=== PATIENT | female | born 1975 | race Caucasian/White ===

== ENCOUNTER 2018-08-26 07:23 | Inpatient (IN) | payer OTHER, SELFPAY ==
[2018-08-26] VITALS (33 sets, daily range): BP systolic 125–170; BP diastolic 73–111; PULSE 71–109; RESP 16–18; TEMP 36.2–37.2; O2SAT 96–100; BMI 20.1
--- NOTE | 2018-08-26 07:15 | EKG12_ITS ---
Test Reason : CP Blood Pressure : / mmHG Vent. Rate : 087 BPM Atrial Rate : 087 BPM P-R Int : 146 ms QRS Dur : 090 ms QT Int : 350 ms P-R-T Axes : 087 054 069 degrees QTc Int : 421 ms Normal sinus rhythm Right atrial enlargement Borderline ECG Confirmed by JABARI HOBSON, MARCO ([id number]), editor city ROSEMARIE CALLE ([id number]) on 08/30/2018 2:29:08 PM Referred By: Sage Tamez Confirmed By:MARCO BARBOZA MD
--- NOTE | 2018-08-26 07:30 | RAD_ITS ---
STUDY: X-RAY - ACUTE ABDOMINAL SERIES REASON FOR EXAM: Female, 42 years old. Chest pain and abdominal pain this morning. Right-sided tenderness. Bloating yesterday. TECHNIQUE: Single view of the chest. Supine, and upright view(s) of the abdomen were obtained. COMPARISON: None. FINDINGS: Mild pulmonary hyperinflation. The lungs are clear. Normal size heart. Normal mediastinum and waqar. Normal visualized pulmonary arteries. Normal visualized aortic arch and descending thoracic aorta. There is a non-specific bowel gas pattern. The soft tissue structures of the abdomen and pelvis are unremarkable. Threaded metallic screws at L5-S1. Midline S1 screw. Postsurgical absence of the L5 spinous process and lamina. No acute osseous abnormality. RAD/Acute Abdomen Inc Chest IMPRESSION: 1. Mild pulmonary hyperinflation. Deeper inspiratory effort versus mild COPD. 2. No acute cardiopulmonary pathology. 3. Normal abdominal radiographs. Electronically Signed: Abel Gillis MD at 8:46 EST , Service support ,
--- NOTE | 2018-08-26 07:31 | US_ITS ---
STUDY: ABDOMINAL ULTRASOUND - RIGHT UPPER QUADRANT REASON FOR VISIT: Female, 42 years old. Right upper quadrant pain. Cholelithiasis. TECHNIQUE: Ultrasound evaluation of the right upper quadrant was performed with real-time and static sexton-scale imaging. TECHNICAL QUALITY: Adequate. COMPARISON: None. FINDINGS: Liver: The liver measures 12.1 cm. There is normal echogenicity of the liver. The bile ducts are within normal limits. There is hepatic color flow. The direction of portal flow is hepatopetal. There is no demonstrated mass lesion. Gallbladder: Normal distended gallbladder. The gallbladder wall measures 3 mm. There is a negative sonographic Barahona's sign. There is no pericholecystic fluid. There are no gallstones. Common Bile Duct (C.B.D.): The common bile duct measures 4 mm. Pancreas: Normal size of the head, body and tail of the pancreas. There is normal echogenicity of the pancreas. There is no demonstrated pancreatic mass or cyst. The pancreatic duct is not dilated. Right Kidney: Normal size of the right kidney. The right kidney measures 12.0 x 4.6 x 4.5 cm. Normal renal cortex. The right cortex measures 1.4 cm. Small right extrarenal pelvis. There is no demonstrated renal mass or cyst. There is no right hydronephrosis. US/Gallbladder IMPRESSION: Normal right upper quadrant ultrasound examination. Electronically Signed: Abel Gillis MD at 8:50 EST , Service support ,
--- NOTE | 2018-08-26 07:39 | ED.DCSUM_ITS ---
- ER Visit Summary Date of Service: 08/26/18 Chief Complaint: Chest pain, back pain, nausea History of Present Illness: The patient is a 42 F presents to the emergency department with multiple complaints. Patient states she was in her normal state of health. She states that she woke about 3 in the morning. She had a stabbing pain in her left posterior shoulder. She states she just felt like she could not get comfortable. Over the next bit of time, the pain seemed to radiate into her upper abdomen. She was mildly nauseated. She states that she thought maybe it was just muscular, but despite moving, she cannot get comfortable. She denies shortness of breath. She has no history of coronary vascular disease. Her only prior surgical history is of a lumbar decompression and fusion. She states that she is never really had pain like this before. She has no history of pulmonary embolus. She denies any fevers. She denies any food intolerances. She states nothing is really helped the pain. It has been constant since about 3 this morning. Physical Examination: Vital signs reviewed General: Well-nourished, well-developed Head: Normocephalic, atraumatic Eyes: Pupils equal and reactive, extraocular muscles intact Neck, supple, no lymphadenopathy Heart: Regular rate and rhythm Respiratory: No distress, clear bilaterally Abdomen: Soft, tender in the midepigastric area without rebound or guarding, nondistended, no peritoneal signs Back: Nontender Extremities: Nontender, no edema, no cords Skin: Normal color no rash Neuro: Alert and oriented, no focal or lateralizing deficits Test Results: [] Emergency Department Course and Treatment: EKG was obtained on patient arrival. There is no acute ischemia. Axes and intervals are normal. Patient was given Tylenol and Zofran. She did have improvement of her pain. I started with plain films of the abdomen and chest. Her mediastinum was normal. There is no evidence of acute obstruction. I also obtained a right upper quadrant ultrasound. Her gallbladder shows no pericholecystic fluid, enlarged duct, or other dangerous process. With her persistent pain, I did obtain a CT of her abdomen and pelvis which was also normal. Her labs are unremarkable. The patient was still uncomfortable. I did discuss this with Dr. Tamez who evaluated the patient in the emergency department. HIDA scan was ordered. HIDA scan was completed and showed evidence of cholecystitis. Patient was covered with broad-spectrum antibiotics. She will be taken to surgery for cholecystectomy. Treatment Plan: [] Disposition: Admission Impression: Cholecystitis This note was generated with [email or web address] dictation software. It may contain incorrect words, spelling, and punctuation that were not noted in review of the chart prior to signing ED Disposition - Plan for ED Patient: Disposition: Acute Care Hospital [facility] Chief Complaint: Chest Pain
[2018-08-26 07:46] LABS: Mucous, Urine 0 SEEN /hpf (<or=2+); Red Blood Cells-Urine 0 SEEN /hpf (0-5)
[2018-08-26 07:49] LABS: Color, Urine Yellow (Yellow); Glucose, Dipstick Normal (Normal); Ketone-Dipstick 5 mg/dl (Negative); Leukocyte Esterase-Dipstick 25 /ul (Negative); Nitrite-Dipstick Negative (Negative); Occult Blood-Urine Negative /ul (Negative); Protein-Dipstick Negative (Negative); Specific Gravity, Urine 1.015 (1.002-1.030); Urine Bilirubin Dipstick Negative (Negative); Urine Clarity Cloudy (Clear); Urine Urobilinogen Normal (Normal)
[2018-08-26 07:51] LABS: Internal QC Validated? YES +Cl - CLEAR BKGD; Pregnancy, Urine Negative Negative
[2018-08-26] MEDS: 0.9% Normal Saline 1,000 ML 1000 ML IV (07:52)
[2018-08-26] MEDS: Ondansetron 4 MG/2 ML Vial IV ×2 (07:52→20:54)
[2018-08-26] MEDS: Ketorolac 30 MG/ML Syringe IV (07:52)
[2018-08-26 07:59] LABS: Bacteria 3+ /hpf (None Seen); Squamous Epithelial Cells - UA 0-5 SEEN /hpf (5-10); White Blood Cells 0-5 SEEN /hpf (0-5)
[2018-08-26 08:00] LABS: Absolute Lymphocyte Count 1.66 X10^3/ul (0.83-4.51); Absolute Neutrophil Count 4.2 X10^3/uL (2.0-7.7); Basophil# 0.04 X10^3/uL; Basophil% 0.6 % (0-1); Eosinophil# 0.05 X10^3/uL; Eosinophils% 0.8 % (0-5); Hemoglobin 13.8 g/dl (12.0-15.0); Lymphocyte # 1.66 X10^3/ul (4.0); Lymphocyte % 25.5 % (19-41); Mean Corp Hgb Conc 32.1 g/gl (32-36); Mean Corpuscular Volume 90.3 fL (81-99); Mean Platelet Vol. 10.2 fl (6.2-12.0); Monocyte# 0.55 X10^3/uL; Monocyte% 8.4 % (0-10); Neutrophil % 64.4 % (47-70); Platelet Count 199 K/mm3 (150-450); RBC Distribution Width CV 12.7 % (11.6-14.6); RBC Distribution Width SD 41.8 fl (35.1-43.9); Red Blood Count 4.76 M/mm3 (4.2-5.4); White Blood Count 6.5 K/mm3 (4.4-11.0)
[2018-08-26 08:01] LABS: POSITIVE COUNT NO; POSITIVE DIFFERENTIAL NO; POSITIVE MORPHOLOGY NO
[2018-08-26 08:15] LABS: AST(SGOT) 16 U/L (15-37); Alanine Aminotransfer ALT/SGPT 21 U/L (13-56); Albumin, Serum 3.8 g/dL (3.2-5.0); Alkaline Phosphatase 67 U/L (45-117); Anion Gap 7 (5-15); BUN 12 mg/dL (7-18); BUN/Creat Ratio 16.3 RATIO (10-20); Bilirubin, Direct 0.12 mg/dL (0.00-0.30); Calcium,Total 8.6 mg/dL (8.5-10.1); Chloride 108 mmol/L (98-107); Creatinine, Serum 0.73 mg/dL (0.55-1.02); EST Glomerular Filtration Rate 92 mL/min (>60); Est Glom Filt Rate - Afr Amer 111 mL/min (>60); Globulin 3.7 g/dL (2.2-4.2); Glucose 87 mg/dL (74-106); Lipase 144 U/L (73-393); Potassium 3.8 mmol/L (3.5-5.1); Protein, Total 7.5 g/dL (6.4-8.2); Sodium Level 140 mmol/L (136-145)
--- NOTE | 2018-08-26 08:34 | CT_ITS ---
STUDY: CT ABDOMEN AND PELVIS WITH CONTRAST REASON FOR EXAM: Female, 42 years old. Chest pain. Nausea. Uterine ablation. RADIATION DOSAGE (If Supplied By Facility): CTDIvol = ( 10.23 ) mGy, DLP = ( 338.98 ) mGycm TECHNIQUE: Transaxial images were obtained from the dome of the diaphragm to the symphysis pubis without oral contrast. 100CC ml of Isovue 300 contrast was administered. Sagittal and coronal images were reconstructed. Individualized dose optimization techniques were used for this CT. COMPARISON: None. FINDINGS: Calcified granuloma in the left central lung bases. The lung bases are otherwise normal. The visualized portions of the heart are within normal limits. Tiny nonenhancing hypodense cyst in the right hepatic lobe. The liver is otherwise normal. Normal gallbladder and extrahepatic biliary system. Normal spleen. Normal pancreas. Normal bilateral adrenal glands. Normal right kidney. Normal left kidney. Normal visualized stomach. Normal small intestine. Normal colon. The appendix is visualized and appears normal. Normal abdominal aorta. Normal inferior vena cava. Normal retroperitoneum. Normal urinary bladder. 1.6 cm rim-enhancing cyst in the right ovary. Heterogeneous hypodensities in the uterine fundus are suggestive of uterine fibroids. Normal abdominal wall. Disc implant inside the L5-S1 disc space. Midline metallic screw penetrating the S1 body. Threaded metallic screw traversing the right L5-S1 facet joint and the tip terminates in the right S1 body. Long threaded metallic screw entering the L5 spinous process and directed caudally to penetrate the left L5-S1 facet joint. No acute osseous abnormality. CT/Abdomen/Pelvis W IV Cont ONLY IMPRESSION: 1. Calcified granuloma in the left central lung base. 2. Tiny nonenhancing hypodense cyst in the right hepatic lobe. 3. 1.6 cm rim-enhancing cyst in the right ovary. 4. Heterogeneous hypodensities in the uterine fundus are suggestive of uterine fibroids. 5. Metallic disc implant inside the L5-S1 disc space and midline metallic screw penetrating the S1 body. 6. Threaded metallic screw traversing the right L5-S1 facet joint and the tip is inside the right S1 body. 7. Long threaded metallic screw entering caudally and penetrating the L5 spinous process and extending caudally to traverse the left L5-S1 facet joint. 8. No CT evidence of mass in the abdomen and pelvis. 9. No CT evidence of stones in the kidneys, ureters and bladder. Electronically Signed: Abel Gillis MD at 9:24 EST , Service support ,
[2018-08-26] MEDS: Mag Hydrox/Al Hydrox/Simeth 30 ML UDC PO (09:39)
--- NOTE | 2018-08-26 09:59 | NM_ITS ---
CLINICAL: 42-year-old female with reported history of abdominal pain. RADIONUCLIDE HEPATOBILIARY SCINTIGRAPHY COMPARISON: CT of the abdomen-pelvis and abdominal ultrasound reports 08/26/2018 FINDINGS: Following the intravenous administration of 5.3 mCi of 99m Tc Mebrofenin, hepatobiliary images reveal: 1. Relatively prompt and homogeneous radiopharmaceutical concentration is noted by a normal sized liver. No parenchymal defects are identified. 2. Gallbladder activity is not identified during 120 minutes of sequential imaging. 3. Small intestinal tract is observed at 30 minutes post radiopharmaceutical administration. 4. Washout of the radiopharmaceutical by the hepatic parenchyma appears qualitatively normal. NM/Hepatobilliary Img w/Pharm Int IMPRESSION: 1. ABNORMAL 99m Tc Mebrofenin hepatobiliary imaging examination. A. Nonvisualization of the gallbladder at 120 minutes post radiopharmaceutical administration is consistent with a high probability of cholecystitis (acute or chronic) in patients with intermediate to high pretest probabilities of hepatobiliary disease and who have fasted for more than 4 and less than 24 hours. (Sean et al, Nucl Med [employer] pg. 35, 1981). Electronically Signed: Adis Treadwell DO at 12:41 EST Tel , Service support ,
[2018-08-26] MEDS: HYDROmorphone 0.5 MG/0.5 ML SYRINGE IV (12:49)
[2018-08-26] MEDS: Ketorolac 15 MG/ML Vial IV (12:49)
--- NOTE | 2018-08-26 13:01 | PCM.HP.STD ---
Problem List (1) Acute cholecystitis Status: Acute History of Present Illness Date of Admission: 08/26/18 The patient is a 42 F presents to the emergency department with multiple complaints. Patient states she was in her normal state of health. She states that she woke about 3 in the morning. She had a stabbing pain in her left posterior shoulder. She states she just felt like she could not get comfortable. Over the next bit of time, the pain seemed to radiate into her upper abdomen. She was mildly nauseated. She states that she thought maybe it was just muscular, but despite moving, she cannot get comfortable. She denies shortness of breath. She has no history of coronary vascular disease. Her only prior surgical history is of a lumbar decompression and fusion. She states that she is never really had pain like this before. She has no history of pulmonary embolus. She denies any fevers. She denies any food intolerances. She states nothing is really helped the pain. It has been constant since about 3 this morning. While in the emergency department she had a gallbladder ultrasound as well as a CAT scan which did not reveal any obvious pathology. She subsequently underwent a HIDA scan with ejection fraction which showed nonvisualization of the gallbladder. This test also caused an extreme amount of discomfort for her. Past Medical History Allergies betamethasone [From Celestone] Allergy (Verified 08/26/18 07:30) Unknown betamethasone sodium phosphate [From Celestone] Allergy (Verified 08/26/18 07:30) Unknown codeine Allergy (Verified 08/26/18 07:30) Other Sulfa (Sulfonamide Antibiotics) Allergy (Verified 08/26/18 07:30) Other Home Medications: Ambulatory Orders Medication Instructions Recorded Hydrocodone/Acetaminophen [Vicodin 2 tablet PO QHS 10/02/14 5-300 mg Tablet] Amitriptyline HCl [Elavil] 10 mg PO QHS 08/26/18 Smoking Status: Never smoker - *Family History Paternal History Items: - - I removed her father's gallbladder Review of Systems Constitutional: Reports: Anorexia. Denies: Chills, Fever Cardiovascular: Reports: Chest Pain. Denies: Chest Pressure, Palpitations Respiratory: Denies: Cough, Hemoptysis, Shortness of breath at rest, Shortness of breath upon exertion, Wheezing Gastrointestinal: Reports: Abdominal Pain, Nausea. Denies: Diarrhea, Vomiting Genitourinary: Denies: Dysuria, Frequency, Hematuria, Urgency Musculoskeletal: Reports: Back Pain Skin: Denies: Lesions, Rash, Wounds VTE Information - Inpt Only VTE Present on Admission: No VTE Mechan Device Prophylaxis: SCD's VTE Pharm Prophylaxis ordered?: No Reason prophylaxis not ordered:: Treatment Not Indicated Patient Problems: Active and Suspected Problems Acute cholecystitis (Acute) - Physical Exam General: Alert, Oriented x3 Neck: Supple, No JVD Lungs: Clear to auscultation Cardiovascular: Regular rate, Regular Rhythm, No murmurs Abdomen: Bowel Sounds Present, Soft, Tender - This is mostly in the epigastric and right upper quadrant abdominal area to palpation. Extremities: No clubbing, No cyanosis, No edema, - - No signs of any rash on her trunk or torso. Skin: No rashes, No breakdown Vital Signs Temp Pulse Resp BP Pulse Ox 97.9 F 102 H 16 139/74 H 97 08/26/18 07:23 08/26/18 12:57 08/26/18 12:57 08/26/18 12:57 08/26/18 12:57 Oxygen Delivery Method Room Air Weight: 124 lb 12.506 oz Body Mass Index (BMI) 20.1 Laboratory Tests Past 24 Hrs 08/26/18 08/26/18 08/26/18 07:40 07:40 07:47 WBC 6.5 RBC 4.76 Hgb 13.8 Hct 43.0 MCV 90.3 MCH 29.0 MCHC 32.1 RDW 12.7 RDW Differential 41.8 Plt Count 199 MPV 10.2 Immature Gran % (Auto) 0.300 Neut % (Auto) 64.4 Lymph % (Auto) 25.5 [place] % (Auto) 8.4 Eos % (Auto) 0.8 Baso % (Auto) 0.6 Absolute Neuts (auto) 4.2 Absolute Lymphs (auto) 1.66 Total Counted Not Reportable Sodium Potassium Chloride Carbon Dioxide Anion Gap BUN Creatinine Estim Creat Clear Calc Est GFR (MDRD) Af Amer Est GFR (MDRD) Non-Af BUN/Creatinine Ratio Glucose Calcium Total Bilirubin Direct Bilirubin AST ALT Alkaline Phosphatase Troponin I Total Protein Albumin Globulin Lipase Urine Color Yellow Urine Clarity Cloudy Urine pH 7.0 Ur Specific [place] 1.015 Urine Protein Negative Urine Glucose (UA) Normal Urine Ketones 5 H Urine Occult Blood Negative Urine Nitrite Negative Urine Bilirubin Negative Urine Urobilinogen Normal Ur Leukocyte Esterase 25 H Urine RBC 0 SEEN Urine WBC 0-5 SEEN Ur Squamous Epith Cells 0-5 SEEN Urine Bacteria 3+ Urine Mucus 0 SEEN Urine Test Negative 08/26/18 07:47 WBC RBC Hgb Hct MCV MCH MCHC RDW RDW Differential Plt Count MPV Immature Gran % (Auto) Neut % (Auto) Lymph % (Auto) [place] % (Auto) Eos % (Auto) Baso % (Auto) Absolute Neuts (auto) Absolute Lymphs (auto) Total Counted Sodium 140 Potassium 3.8 Chloride 108 H Carbon Dioxide 25.0 Anion Gap 7 BUN 12 Creatinine 0.73 Estim Creat Clear Calc 89.70 Est GFR (MDRD) Af Amer 111 Est GFR (MDRD) Non-Af 92 BUN/Creatinine Ratio 16.3 Glucose 87 Calcium 8.6 Total Bilirubin 0.50 Direct Bilirubin 0.12 AST 16 ALT 21 Alkaline Phosphatase 67 Troponin I < 0.015 Total Protein 7.5 Albumin 3.8 Globulin 3.7 Lipase 144 Urine Color Urine Clarity Urine pH Ur Specific [place] Urine Protein Urine Glucose (UA) Urine Ketones Urine Occult Blood Urine Nitrite Urine Bilirubin Urine Urobilinogen Ur Leukocyte Esterase Urine RBC Urine WBC Ur Squamous Epith Cells Urine Bacteria Urine Mucus Urine Test Assessment/Plan All Active Problems Acute cholecystitis (Acute) My plan is to perform a laparoscopic cholecystectomy. Risk benefits of the procedure were reviewed in great detail with the patient and the patient agrees to proceed. She had the optimal opportunity to ask questions all these questions were answered. She agrees to proceed.
--- NOTE | 2018-08-26 15:00 | GALL_PTH ---
PATIENT: SOL SIMPSON LOC: MS3 U#:[id number] AGE/SX: 42/F ROOM: MS312 RE08/28/[address]: Dr. Sage Tamez MD : [id number] BED: 1 DIS: 08/30/2018 SPEC #: [id number] RECD: 08/27/18 10:31 STATUS: TYLER REQ #: [id number] BRIAN: 08/26/18 15:[address]: Sage Tamez DEPT: SURGICAL PATHOLOGY RECD BY: Jayy Arthur ENTERED: 08/27/18 11:02 SP TYPE: MINISTERIO HADDAD DR: Dr. Jacek Lubin MD Tissues: Gallbladder, NOS Procedures: Surgery Specimen Level III HEADER OPERATION: Laparoscopic cholecystectomy PRE-OP DIAGNOSIS: Acute cholecystitis TISSUE SUBMITTED: Gallbladder MICROSCOPIC DIAGNOSIS Gallbladder: Chronic cholecystitis, No stones are identified in the container or in the gallbladder. SJ:rolando 12/10/18 MICROSCOPIC DESCRIPTION Slides are reviewed. GROSS DESCRIPTION Received is one container labeled with the patient's name and designated gallbladder. The specimen consists of a gallbladder measuring 6.5 x 3.5 x 1.5 cm. The external surface is smooth and glistening. Focally, it is granular, hemorrhagic and contains cautery artifact. The lumen of the gallbladder contains green-yellow mucoid bile and no calculi. The mucosa is bile-stained and without any mass lesions. The gallbladder wall averages 0.1 cm in thickness and is free of mass lesions. Esthetician/Owner sections of the gallbladder and the cystic duct are submitted in one cassette. / AM:rolando 08/27/18 TC:3 CPT: 81075
--- NOTE | 2018-08-26 15:19 | PCM.OPRPT ---
Problem List (1) Acute cholecystitis Status: Acute Report of Operation Date of Procedure: 08/26/18 Pre-Operative Diagnosis: Acute cholecystitis Post-Operative Diagnosis: Same Surgery/Procedure Performed:: Laparoscopic cholecystectomy Type of Anesthesia:: General Anesthesiologist: Kashif Peng Specimen's removed: Gallbladder Estimated Blood Loss (mL): < 25 cc Fluids Replaced: 1L LR Description of Procedure: Patient was brought in the operating room. Placed in the supine position. Under excellent general endotracheal the patient the abdomen was sterilely prepped draped in usual fashion. Local was injected infraumbilically. Dissection was carried down to the fascia. The fascia grasped with a Meridian. Varies was placed inside the abdomen. The abdomen was insufflated to 15 torr. A 10/12 trocar was placed without difficulty. Patient was placed in the head up and rotated to the left position. Subxiphoid #5 trocar was placed inferior to this an alligator clamp was placed and laterally an alligator clamp was placed all these under direct visualization without injury to underlying structures. Fundus of the gallbladder was aspirated and then grasped with the alligator clamp and retracted in the cephalad direction I dissected out the cystic duct place hemoclips proximally distally and ligated the duct identified the cystic artery placed hemoclips proximally distally and ligated the artery deliver the gallbladder from the gallbladder bed with use of electrocautery. I placed it in specimen bag and delivered through the umbilical port without difficulty. Of note the gallbladder was edematous did not have any obvious stones but it clearly was inflamed and was most likely the source of her discomfort. I irrigated the right upper quadrant good hemostasis was noted. I removed the trochars under direct visualization good hemostasis was noted. I closed the fascia the umbilical port with a [id number] stitch of 0 Vicryl skin incisions were closed with septicum stitches of 4-0 Monocryl Steri-Strips are applied sterile dressings were applied and the patient tolerated the procedure well - Admit VTE Documentation VTE Present on Admission: No VTE Mechan Device Prophylaxis: SCD's VTE Pharm Prophylaxis ordered?: No Reason prophylaxis not ordered:: Treatment Not Indicated
[2018-08-26] MEDS: Bupivacaine Mpf 0.5% 30 ML VIAL (16:04)
[2018-08-26] MEDS: HYDROmorphone 1 MG/ML Syringe IV (20:54)
[2018-08-26] MEDS: Lactated Ringers 1,000 ML 60 ML IV (20:57)
[2018-08-26] MEDS: Amitriptyline 10 MG Tablet PO (22:44)
[2018-08-27] VITALS (8 sets, daily range): BP systolic 115–129; BP diastolic 68–92; PULSE 86–104; RESP 14–16; TEMP 36.9–38.3; O2SAT 94–98
[2018-08-27] MEDS: HYDROmorphone 1 MG/ML Syringe IV ×5 (00:57→15:52)
[2018-08-27] MEDS: Ondansetron 4 MG/2 ML Vial IV ×2 (08:34→23:04)
[2018-08-27] MEDS: Lactated Ringers 1,000 ML 60 ML IV (08:36)
--- NOTE | 2018-08-27 08:45 | PCM.PN.SRG ---
Patient Problems: Active and Suspected Problems Acute cholecystitis (Acute) Subjective: Patient has had problems with migraines tonight. Has had to have 2 doses of her Imitrex to help. She is tolerating a diet right upper quadrant abdominal pain is gone but she is complaining of incisional pain at the present time. Objective: Dressings are dry old blood is identified on there she does actually have moderate amount of bruising from her umbilical as well as her right lateral trocar site. - Physical Exam Vital Signs Temp Pulse Resp BP Pulse Ox 99.6 F H 86 16 116/71 94 08/27/18 07:54 08/27/18 08:08 08/27/18 08:08 08/27/18 07:54 08/27/18 08:08 Oxygen Delivery Method Room Air Weight: 124 lb 12.506 oz Body Mass Index (BMI) 20.1 Intake and Output for Last 24 Hours 08/25/18 08/26/18 08/27/18 23:59 23:59 23:59 Intake Total 3200 / 3200 2093 / 2093 Output Total 250 / 250 650 / 650 Balance 2950 / 2950 1443 / 1443 Medical Necessity - Tobacco Use Smoking Status: Never smoker Assessment/Plan All Active Problems Acute cholecystitis (Acute) Postoperative day #1 Hopefully by this afternoon the patient will start to feel in better so that we can get her discharged to home.
[2018-08-27] MEDS: oxyCODONE 5 MG Tablet 10 MG PO ×4 (10:42→23:08)
[2018-08-27] MEDS: Ibuprofen 400 MG Tablet 800 MG PO (14:52)
[2018-08-27 15:25] LABS: ALB/GLOB Ratio 0.8 RATIO (0.9-2.4); AST(SGOT) 34 U/L (15-37); Alanine Aminotransfer ALT/SGPT 40 U/L (13-56); Alkaline Phosphatase 53 U/L (45-117); Anion Gap 9 (5-15); BUN 8 mg/dL (7-18); BUN/Creat Ratio 11.5 RATIO (10-20); Calcium,Total 8.5 mg/dL (8.5-10.1); Chloride 105 mmol/L (98-107); EST Glomerular Filtration Rate 98 mL/min (>60); Est Glom Filt Rate - Afr Amer 118 mL/min (>60); Estimated Creatinine Clearance 93.55 ml/min; Globulin 3.6 g/dL (2.2-4.2); Glucose 112 mg/dL (74-106); Lipase 381 U/L (73-393); Protein, Total 6.6 g/dL (6.4-8.2); Sodium Level 138 mmol/L (136-145)
[2018-08-27 15:28] LABS: Absolute Lymphocyte Count 0.48 X10^3/ul (0.83-4.51); Absolute Neutrophil Count 9.6 X10^3/uL (2.0-7.7); Basophil# 0.01 X10^3/uL; Basophil% 0.1 % (0-1); Hematocrit 38.9 % (37-47); Hemoglobin 12.7 g/dl (12.0-15.0); Lymphocyte # 0.48 X10^3/ul (4.0); Lymphocyte % 4.5 % (19-41); Mean Corp Hgb Conc 32.6 g/gl (32-36); Mean Corpuscular Hgb 29.9 pg (27.0-32.0); Mean Corpuscular Volume 91.5 fL (81-99); Mean Platelet Vol. 10.1 fl (6.2-12.0); Monocyte# 0.61 X10^3/uL; Monocyte% 5.7 % (0-10); Neutrophil # 9.61 X10^3/uL (2.7-7.7); Neutrophil % 89.5 % (47-70); Platelet Count 154 K/mm3 (150-450); RBC Distribution Width SD 42.8 fl (35.1-43.9); Red Blood Count 4.25 M/mm3 (4.2-5.4); White Blood Count 10.7 K/mm3 (4.4-11.0)
[2018-08-27 16:02] LABS: Differential Indicated SCAN CRITERIA MET; POSITIVE COUNT NO; POSITIVE DIFFERENTIAL YES; POSITIVE MORPHOLOGY NO
[2018-08-27 16:03] LABS: Platelet Estimate ADEQUATE (ADEQ); Red Cell Morphology NORM C+C NORMAL (NORM C&C)
[2018-08-27] MEDS: Amitriptyline 10 MG Tablet PO (21:22)
[2018-08-28] VITALS (8 sets, daily range): BP systolic 110–134; BP diastolic 76–91; PULSE 87–112; RESP 16–18; TEMP 37.1–39.1; O2SAT 95–99
[2018-08-28] MEDS: Ibuprofen 400 MG Tablet 800 MG PO ×2 (02:05→17:06)
[2018-08-28] MEDS: Lactated Ringers 1,000 ML 60 ML IV (02:06)
[2018-08-28] MEDS: oxyCODONE 5 MG Tablet 10 MG PO ×4 (06:06→23:02)
--- NOTE | 2018-08-28 07:37 | PCM.PN.SRG ---
Patient Problems: Active and Suspected Problems Acute cholecystitis (Acute) Subjective: Patient states she is feeling a little better, no flatus, + burping, ambulating halls, pain controlled with meds - Physical Exam General: Alert, Oriented x3, Cooperative, No apparent distress Lungs: Normal air movement Cardiovascular: Regular rate Abdomen: Soft, Distended - Mild to moderate, Tender - Near incisions clean dry and intact, no peritoneal signs Extremities: No clubbing, No cyanosis, No edema Vital Signs Temp Pulse Resp BP Pulse Ox 99.4 F H 87 16 119/87 H 97 08/28/18 02:00 08/28/18 02:00 08/28/18 02:00 08/28/18 02:00 08/28/18 02:00 Oxygen Delivery Method Room Air Weight: 124 lb 12.506 oz Body Mass Index (BMI) 20.1 Intake and Output for Last 24 Hours 08/26/18 08/27/18 08/28/18 23:59 23:59 23:59 Intake Total 3200 / 3200 3640 / 3640 386 / 386 Output Total 250 / 250 3150 / 3150 1300 / 1300 Balance 2950 / 2950 490 / 490 -914 / -914 Laboratory Tests Past 24 Hrs 08/27/18 08/27/18 15:03 15:03 WBC 10.7 RBC 4.25 Hgb 12.7 Hct 38.9 MCV 91.5 MCH 29.9 MCHC 32.6 RDW 13.0 RDW Differential 42.8 Plt Count 154 MPV 10.1 Immature Gran % (Auto) 0.200 Neut % (Auto) 89.5 H Lymph % (Auto) 4.5 L [place] % (Auto) 5.7 Eos % (Auto) 0.0 Baso % (Auto) 0.1 Absolute Neuts (auto) 9.6 H Absolute Lymphs (auto) 0.48 L Total Counted Not Reportable Differential Comment Platelet Estimate ADEQUATE RBC Morphology NORM C+C Sodium 138 Potassium 4.0 Chloride 105 Carbon Dioxide 24.0 Anion Gap 9 BUN 8 Creatinine 0.70 Estim Creat Clear Calc 93.55 Est GFR (MDRD) Af Amer 118 Est GFR (MDRD) Non-Af 98 BUN/Creatinine Ratio 11.5 Glucose 112 H Calcium 8.5 Total Bilirubin 0.60 AST 34 ALT 40 Alkaline Phosphatase 53 Total Protein 6.6 Albumin 3.0 L Globulin 3.6 Albumin/Globulin Ratio 0.8 L Lipase 381 Medical Necessity - Tobacco Use Smoking Status: Never smoker Assessment/Plan All Active Problems Acute cholecystitis (Acute) 42-year-old female postop day 2 status post laparoscopic cholecystectomy for acute cholecystitis 1. Continue clears until positive flatus 2. Continue pain control 3. Continue ambulating halls Caterina Akbar M.D. Pager: [phone] [facility] [address] [place] [address], [facility], [address] [place] [address] Office: [phone]
--- NOTE | 2018-08-28 18:42 | RAD_ITS ---
STUDY: X-RAY - ABDOMEN/PELVIS REASON FOR EXAM: Female, 42 years old. 3 day status post gallbladder surgery, fever. TECHNIQUE: Portable supine abdomen. COMPARISON: CT abdomen pelvis 08/26/2011. FINDINGS: There is a nonobstructive bowel gas pattern. No organomegaly. No abnormal calcifications. Normal visualized osseous structures. RAD/Abdomen Single View (Portable) IMPRESSION: Normal x-ray examination of the abdomen and pelvis. Electronically Signed: Ashley Guerrero MD at 20:15 EST Tel , Service support ,
--- NOTE | 2018-08-28 18:42 | RAD_ITS ---
STUDY: X-RAY CHEST REASON FOR EXAM: Female, 42 years old. 3 day status post gallbladder surgery, fever. TECHNIQUE: Portable chest. COMPARISON: None. FINDINGS: The lungs are clear and expanded. There is no demonstrated pleural abnormality. Normal size heart. Normal mediastinum and waqar. Normal visualized pulmonary arteries. Normal visualized aortic arch and descending thoracic aorta. Normal visualized thoracic spine. Normal visualized ribs, clavicles, and shoulders. There is no demonstrated abnormality of the visualized soft tissue structures of the upper abdomen. RAD/Chest 1 View (Portable) IMPRESSION: Normal x-ray examination of the chest. Electronically Signed: Ashley Guerrero MD at 20:13 EST Tel , Service support ,
--- NOTE | 2018-08-28 18:43 | NURSING ---
PT C/O FEELING HOT/MISERABLE, TEMP 102.[address] GANNON NOTIFIED & NEW ORDERS RECEIVED.
[2018-08-28] MEDS: Acetaminophen 325 MG Tablet 650 MG PO (18:50)
[2018-08-28 19:23] LABS: Absolute Lymphocyte Count 0.63 X10^3/ul (0.83-4.51); Absolute Neutrophil Count 7.5 X10^3/uL (2.0-7.7); Basophil# 0.01 X10^3/uL; Basophil% 0.1 % (0-1); Eosinophil# 0.01 X10^3/uL; Eosinophils% 0.1 % (0-5); Hematocrit 37.9 % (37-47); Lymphocyte # 0.63 X10^3/ul (4.0); Lymphocyte % 7.4 % (19-41); Mean Corp Hgb Conc 31.7 g/gl (32-36); Mean Corpuscular Hgb 29.1 pg (27.0-32.0); Monocyte% 4.7 % (0-10); Neutrophil # 7.49 X10^3/uL (2.7-7.7); Neutrophil % 87.6 % (47-70); Platelet Count 141 K/mm3 (150-450); RBC Distribution Width CV 13.1 % (11.6-14.6); RBC Distribution Width SD 44.2 fl (35.1-43.9); Red Blood Count 4.12 M/mm3 (4.2-5.4); White Blood Count 8.6 K/mm3 (4.4-11.0)
[2018-08-28 19:24] LABS: POSITIVE COUNT NO; POSITIVE DIFFERENTIAL NO; POSITIVE MORPHOLOGY NO
[2018-08-28 19:27] LABS: Mucous, Urine 0 SEEN /hpf (<or=2+); Red Blood Cells-Urine 0 SEEN /hpf (0-5); Squamous Epithelial Cells - UA 0 SEEN /hpf (5-10); White Blood Cells 0 SEEN /hpf (0-5)
[2018-08-28 19:34] LABS: Anion Gap 7 (5-15); BUN 5 mg/dL (7-18); BUN/Creat Ratio 7.6 RATIO (10-20); Calcium,Total 8.4 mg/dL (8.5-10.1); Chloride 103 mmol/L (98-107); Creatinine, Serum 0.66 mg/dL (0.55-1.02); EST Glomerular Filtration Rate 104 mL/min (>60); Est Glom Filt Rate - Afr Amer 126 mL/min (>60); Estimated Creatinine Clearance 99.22 ml/min; Glucose 101 mg/dL (74-106); Potassium 3.5 mmol/L (3.5-5.1); Sodium Level 139 mmol/L (136-145)
[2018-08-28 19:37] LABS: Color, Urine Yellow (Yellow); Glucose, Dipstick Normal (Normal); Ketone-Dipstick 15 mg/dl (Negative); Leukocyte Esterase-Dipstick Negative /ul (Negative); Nitrite-Dipstick Negative (Negative); Occult Blood-Urine Negative /ul (Negative); Protein-Dipstick Negative (Negative); Specific Gravity, Urine 1.015 (1.002-1.030); Urine Bilirubin Dipstick Negative (Negative); Urine Clarity Sl. Cloudy (Clear); Urine Urobilinogen Normal (Normal)
[2018-08-28 19:39] LABS: Bacteria RARE /hpf (None Seen)
--- NOTE | 2018-08-28 20:13 | CT_ITS ---
STUDY: CT ABDOMEN AND PELVIS WITH CONTRAST REASON FOR EXAM: Female, 42 years old. Fever. Lap cholecystectomy 08/26/2018 RADIATION DOSAGE (If Supplied By Facility): CTDIvol = ( 10.19 ) mGy, DLP = ( 373.94 ) mGycm TECHNIQUE: Transaxial images were obtained from the dome of the diaphragm to the symphysis pubis without oral contrast. 100ML ml of Isovue 300 contrast was administered. Sagittal and coronal images were reconstructed. Individualized dose optimization techniques were used for this CT. COMPARISON: August 26, 2018 FINDINGS: There are small bilateral pleural effusions associated with dependent consolidation within the lower lobes. The visualized portions of the heart are within normal limits. Normal liver. The gallbladder is surgically absent. There is trace fluid within the gallbladder fossa. Normal spleen. Stable pancreas. Normal bilateral adrenal glands. There is mild right pelvic caliectasis likely related to the distended urinary bladder. Normal left kidney. Normal visualized stomach. Normal small intestine. Within the cecum there is a new high attenuation 2.1 x 1.3 x 1.2 cm rounded focus (image 95 series 2 and image 37 series 601). The appendix is visualized and appears normal. Normal abdominal aorta. Normal inferior vena cava. Normal retroperitoneum. The urinary bladder is fluid-filled and distended. There is a small amount of free fluid within the pelvis. Normal abdominal wall. There are postsurgical changes at L5-S1. CT/Abdomen/Pelvis W IV Cont ONLY IMPRESSION: Indeterminate new high attenuation focus within the cecum cannot exclude a gastrointestinal bleed. New bilateral pleural effusions associated with dependent consolidation within the lower lobes. Fluid-filled distended urinary bladder. N.B. : The above information has been verbally conveyed by Jessica Wells MD to Shira Capellan RN, on 08/28/2018 22:51:35 (ET). Electronically Signed: Jessica Wells MD at 22:52 EST Tel , Service support ,
[2018-08-28 20:26] LABS: AST(SGOT) 25 U/L (15-37); Alanine Aminotransfer ALT/SGPT 37 U/L (13-56); Albumin, Serum 2.9 g/dL (3.2-5.0); Alkaline Phosphatase 64 U/L (45-117); Bilirubin, Direct 0.18 mg/dL (0.00-0.30); Globulin 3.8 g/dL (2.2-4.2); Protein, Total 6.7 g/dL (6.4-8.2)
[2018-08-28] MEDS: Amitriptyline 10 MG Tablet PO (21:11)
[2018-08-28] MEDS: Rizatriptan Benzoate 10 MG Tablet PO (21:35)
[2018-08-28] MEDS: Piperacil/Tazobactam 3.375 GM/50 ML ML IV (21:36)
[2018-08-28] MEDS: 0.9% NaCl Peripheral Flush Adult/Peds IV (21:37)
[2018-08-29] VITALS (7 sets, daily range): BP systolic 85–114; BP diastolic 60–78; PULSE 84–99; RESP 16–18; TEMP 36.8–38; O2SAT 98–100
[2018-08-29] MEDS: Lactated Ringers 1,000 ML 40 ML IV (04:19)
[2018-08-29] MEDS: oxyCODONE 5 MG Tablet 10 MG PO ×4 (04:19→18:58)
--- NOTE | 2018-08-29 04:38 | NUR.TO.PHY ---
Pt called out and reports passing flatus @ this time.
[2018-08-29] MEDS: Piperacil/Tazobactam 3.375 GM/50 ML ML IV ×3 (05:26→20:53)
[2018-08-29 06:30] LABS: Absolute Lymphocyte Count 1.09 X10^3/ul (0.83-4.51); Absolute Neutrophil Count 6.7 X10^3/uL (2.0-7.7); Basophil# 0.02 X10^3/uL; Basophil% 0.2 % (0-1); Eosinophil# 0.05 X10^3/uL; Eosinophils% 0.6 % (0-5); Hematocrit 36.9 % (37-47); Hemoglobin 11.6 g/dl (12.0-15.0); Lymphocyte # 1.09 X10^3/ul (4.0); Mean Corp Hgb Conc 31.4 g/gl (32-36); Mean Corpuscular Hgb 28.9 pg (27.0-32.0); Mean Corpuscular Volume 91.8 fL (81-99); Mean Platelet Vol. 10.1 fl (6.2-12.0); Monocyte# 0.54 X10^3/uL; Monocyte% 6.4 % (0-10); Neutrophil # 6.68 X10^3/uL (2.7-7.7); Neutrophil % 79.4 % (47-70); Platelet Count 148 K/mm3 (150-450); RBC Distribution Width SD 43.8 fl (35.1-43.9); Red Blood Count 4.02 M/mm3 (4.2-5.4); White Blood Count 8.4 K/mm3 (4.4-11.0)
[2018-08-29 06:33] LABS: POSITIVE COUNT NO; POSITIVE DIFFERENTIAL NO; POSITIVE MORPHOLOGY NO
[2018-08-29] MEDS: Rizatriptan Benzoate 10 MG Tablet PO (07:18)
--- NOTE | 2018-08-29 08:28 | PN.SURG_ITS ---
Patient Problems: Active and Suspected Problems Acute cholecystitis (Acute) Subjective: Patient had a fever of 102 yesterday chest x-ray with abnormal KUB showed gas in the colon, CT abdomen pelvis not show any evidence of a bile leak just some small pleural effusions and a questionable contrast was seen in the cecum, distended bladder. Patient did have urinary retention for 800 straight cathed once but has been able to void since with very low postvoid residual of 3 cc, patient was restarted on Zosyn. Patient has not having any further fevers. She did begin passing gas this morning and asked to have oatmeal for breakfast. - Physical Exam General: Alert, Oriented x3, Cooperative, No apparent distress HEENT: Atraumatic Lungs: Normal air movement Cardiovascular: Regular rate Abdomen: Soft, Distended - Moderate, Tender - Near incisions incision is clean dry and intact, no peritoneal signs Extremities: No clubbing, No cyanosis, No edema Vital Signs Temp Pulse Resp BP Pulse Ox 98.5 F 89 18 109/76 99 08/29/18 08:16 08/29/18 08:16 08/29/18 08:16 08/29/18 08:16 08/29/18 08:16 Oxygen Delivery Method Room Air Weight: 124 lb 12.506 oz Body Mass Index (BMI) 20.1 Intake and Output for Last 24 Hours 08/27/18 08/28/18 08/29/18 23:59 23:59 23:59 Intake Total 3640 / 3640 2388 / 2388 385 / 385 Output Total 3150 / 3150 3300 / 3300 500 / 500 Balance 490 / 490 -912 / -912 -115 / -115 Laboratory Tests Past 24 Hrs 08/28/18 08/28/18 08/28/18 19:01 19:01 19:01 WBC 8.6 RBC 4.12 L Hgb 12.0 Hct 37.9 MCV 92.0 MCH 29.1 MCHC 31.7 L RDW 13.1 RDW Differential 44.2 H Plt Count 141 L MPV 10.0 Immature Gran % (Auto) 0.100 Neut % (Auto) 87.6 H Lymph % (Auto) 7.4 L [place] % (Auto) 4.7 Eos % (Auto) 0.1 Baso % (Auto) 0.1 Absolute Neuts (auto) 7.5 Absolute Lymphs (auto) 0.63 L Total Counted Not Reportable Sodium 139 Potassium 3.5 Chloride 103 Carbon Dioxide 29.0 Anion Gap 7 BUN 5 L Creatinine 0.66 Estim Creat Clear Calc 99.22 Est GFR (MDRD) Af Amer 126 Est GFR (MDRD) Non-Af 104 BUN/Creatinine Ratio 7.6 L Glucose 101 Calcium 8.4 L Total Bilirubin 0.60 Direct Bilirubin 0.18 AST 25 ALT 37 Alkaline Phosphatase 64 Total Protein 6.7 Albumin 2.9 L Globulin 3.8 Urine Color Urine Clarity Urine pH Ur Specific [place] Urine Protein Urine Glucose (UA) Urine Ketones Urine Occult Blood Urine Nitrite Urine Bilirubin Urine Urobilinogen Ur Leukocyte Esterase Urine RBC Urine WBC Ur Squamous Epith Cells Urine Bacteria Urine Mucus 08/28/18 08/29/18 19:15 05:50 WBC 8.4 RBC 4.02 L Hgb 11.6 L Hct 36.9 L MCV 91.8 MCH 28.9 MCHC 31.4 L RDW 13.0 RDW Differential 43.8 Plt Count 148 L MPV 10.1 Immature Gran % (Auto) 0.400 Neut % (Auto) 79.4 H Lymph % (Auto) 13.0 L [place] % (Auto) 6.4 Eos % (Auto) 0.6 Baso % (Auto) 0.2 Absolute Neuts (auto) 6.7 Absolute Lymphs (auto) 1.09 Total Counted Not Reportable Sodium Potassium Chloride Carbon Dioxide Anion Gap BUN Creatinine Estim Creat Clear Calc Est GFR (MDRD) Af Amer Est GFR (MDRD) Non-Af BUN/Creatinine Ratio Glucose Calcium Total Bilirubin Direct Bilirubin AST ALT Alkaline Phosphatase Total Protein Albumin Globulin Urine Color Yellow Urine Clarity Sl. Cloudy Urine pH 8.0 Ur Specific [place] 1.015 Urine Protein Negative Urine Glucose (UA) Normal Urine Ketones 15 H Urine Occult Blood Negative Urine Nitrite Negative Urine Bilirubin Negative Urine Urobilinogen Normal Ur Leukocyte Esterase Negative Urine RBC 0 SEEN Urine WBC 0 SEEN Ur Squamous Epith Cells 0 SEEN Urine Bacteria RARE Urine Mucus 0 SEEN Medical Necessity - Tobacco Use Smoking Status: Never smoker Assessment/Plan All Active Problems Acute cholecystitis (Acute) 42-year-old female postop day 3 status post laparoscopic cholecystectomy for acute cholecystitis, fevers 1. Positive flatus we will advance patient to fulls 2. Continue pain control 3. Continue ambulating halls 4. Fevers currently resolved patient is on Zosyn encourage I-S use as well as continued ambulation Caterina Akbar M.D. Pager: [phone] [facility] [address] [place] [address], [facility], [address] [place] [address] Office: [phone]
[2018-08-29] MEDS: Acetaminophen 325 MG Tablet 650 MG PO (13:14)
[2018-08-29] MEDS: Ondansetron 4 MG/2 ML Vial IV (13:15)
[2018-08-29] MEDS: 0.9% NaCl Peripheral Flush Adult/Peds IV (13:15)
[2018-08-29] MEDS: Amitriptyline 10 MG Tablet PO (20:45)
[2018-08-30] MEDS: oxyCODONE 5 MG Tablet 10 MG PO ×2 (00:03→01:39)
[2018-08-30 03:00] VITALS: BP 128/88; PULSE 98; RESP 18; TEMP 37.9; O2SAT 98
[2018-08-30] MEDS: Ibuprofen 400 MG Tablet 800 MG PO (03:42)
[2018-08-30] MEDS: Rizatriptan Benzoate 10 MG Tablet PO (04:08)
[2018-08-30] MEDS: Piperacil/Tazobactam 3.375 GM/50 ML ML IV (06:06)
[2018-08-30 06:08] VITALS: TEMP 37.1
[2018-08-30 09:10] VITALS: BP 113/81; PULSE 89; RESP 18; TEMP 36.8; O2SAT 99
--- NOTE | 2018-08-30 10:31 | PN.SURG_ITS ---
Patient Problems: Active and Suspected Problems Acute cholecystitis (Acute) Subjective: No fevers this a.m. Pain is well controlled. Passing flatus. No bowel movements as of yet. Objective: Abdomen is soft and nontender dressings are dry minimal bruising is identified - Physical Exam Vital Signs Temp Pulse Resp BP Pulse Ox 98.2 F 89 18 113/81 H 99 08/30/18 09:10 08/30/18 09:10 08/30/18 09:10 08/30/18 09:10 08/30/18 09:10 Oxygen Delivery Method Room Air Weight: 124 lb 12.506 oz Body Mass Index (BMI) 20.1 Intake and Output for Last 24 Hours 08/28/18 08/29/18 08/30/18 23:59 23:59 23:59 Intake Total 2388 / 2388 2021 / 2021 1134 / 1134 Output Total 3300 / 3300 1850 / 1850 1600 / 1600 Balance -912 / -912 172 / 172 -466 / -466 Medical Necessity - Tobacco Use Smoking Status: Never smoker Assessment/Plan All Active Problems Acute cholecystitis (Acute) Believe it is okay for her to be discharged today. Will hold off on any home- going antibiotics. We will check blood cultures if they come back and we will treat her expectantly with some appropriate outpatient antibiotic but I doubt seriously if this is going to be the case.
--- NOTE | 2018-08-30 10:32 | DCINST_ITS ---
Discharge Diet: Light diet - advance as tolerated Discharge Activity: May Not Drive - for 2-3 days or while taking narcotic pain medications., - - Do not drive, work heavy equipment or sign legal documents for 24 hours. May shower in (days): 1 - with the bandage in place. Additional Activity Instructions:: Pain medication may cause nausea. You should typically eat light foods as you take your pain medications. Pain medication may also cause constipation. If this is a problem for you, please discuss with your doctor. Call your doctor if your incision/area has: Continuous Slow Oozing, Sudden Increased Bleeding, Increased Pain/ Swelling, Increased Redness, Foul Smelling Discharge Call your doctor if you observe: Fever of 101 or Higher Suture Line Care: Avoid Pulling/Pushing, Avoid Pinching/Bending Additional Dressing/Incision Instructions:: Leave operative bandaids on for 2 days. When you remove dressing, leave Steri-Strips on until your follow-up appointment, or until the Steri-Strips fall off on their own. Allergies/Adverse Reactions: Allergies betamethasone [From Celestone] Allergy (Verified 08/26/18 07:30) Unknown betamethasone sodium phosphate [From Celestone] Allergy (Verified 08/26/18 07:30) Unknown codeine Allergy (Verified 08/26/18 07:30) Other Sulfa (Sulfonamide Antibiotics) Allergy (Verified 08/26/18 07:30) Other Medications to take at Discharge Hydrocodone/Acetaminophen [Vicodin 5-300 mg Tablet] 2 tablet PO QHS PRN 10/02/14 Amitriptyline HCl [Elavil] 10 mg PO QHS 08/26/18 Primary Care Physician: Jacek Lubin MD [Primary Care Provider] - Test Results: Test results from this visit will be discussed in further detail at your follow- up appointment, if applicable. Please Follow Up With: Sage Tamez MD - Please call [phone] to schedule an appointment. When: 7 days after your surgery.
--- NOTE | 2018-08-31 13:02 | PCM.DC.SUM ---
Discharge Date and Diagnosis Date of Admission: 08/26/18 Date of Discharge: 08/30/18 - Primary Discharge Diagnosis Acute cholecystitis Hospital Course and Treatment Operations: cholecystecomy Summary of Care Provided: The patient is a 42 year old F who presented with abdominal pain, nausea and back pain. CT scan demonstrated unremarkable for acute pathologic process. RUQ u/s was unremarkable. HIDA scan demonstrated non-visualization of the gallbladder. Dr. Tamez performed a laparoscopic cholecystectomy on 08/26/2018. Patient tolerated the procedure well. Patient continued to have fevers. Repeat CT scan was obtained on 08/28/18 which demonstrated possible GI bleed. No fluid noted near the gallbladder fossa. CXR demonstrated bilateral pleural effusions. KUB showed no acute abnormalities. Upon discharge, patient noted minimal amount of abdominal discomfort. She was tolerating a diet well. She denies fever currently. She denied nausea, vomiting. Positive flatus. - Physical Exam General: Alert, Oriented x3, Cooperative Lungs: Clear to auscultation, Normal air movement Cardiovascular: Regular rate, No murmurs Abdomen: Bowel Sounds Present, Soft, Non Tender, - - Incisions c/d/i. No erythema or infection noted. Moderate amount of ecchymosis. Vital Signs Temp Pulse Resp BP Pulse Ox 98.2 F 89 18 113/81 H 99 08/30/18 09:10 08/30/18 09:10 08/30/18 09:10 08/30/18 09:10 08/30/18 09:10 Oxygen Delivery Method Room Air Weight: 124 lb 12.506 oz Body Mass Index (BMI) 20.1 Intake and Output for Last 24 Hours 08/29/18 08/30/18 08/31/18 23:59 23:59 23:59 Intake Total 2021 1134 / 1134 Output Total 1850 / 1850 1600 / 1600 Balance 172 / 172 -466 / -466 Discharge Diet: Light diet - advance as tolerated Discharge Activity: May Not Drive - for 2-3 days or while taking narcotic pain medications., - - Do not drive, work heavy equipment or sign legal documents for 24 hours. May shower in (days): 1 - with the bandage in place. Additional Activity Instructions:: Pain medication may cause nausea. You should typically eat light foods as you take your pain medications. Pain medication may also cause constipation. If this is a problem for you, please discuss with your doctor. Call your doctor if your incision/area has: Continuous Slow Oozing, Sudden Increased Bleeding, Increased Pain/ Swelling, Increased Redness, Foul Smelling Discharge Call your doctor if you observe: Fever of 101 or Higher Suture Line Care: Avoid Pulling/Pushing, Avoid Pinching/Bending Additional Dressing/Incision Instructions:: Leave operative bandaids on for 2 days. When you remove dressing, leave Steri-Strips on until your follow-up appointment, or until the Steri-Strips fall off on their own. Home Medications: Medications to take at Discharge Hydrocodone/Acetaminophen [Vicodin 5-300 mg Tablet] 2 tablet PO QHS PRN 10/02/14 Amitriptyline HCl [Elavil] 10 mg PO QHS 08/26/18 Primary Care Physician: Jacek Lubin MD [Primary Care Provider] - Please Follow Up With: Sage Tamez MD - Please call [phone] to schedule an appointment. When: 7 days after your surgery. Disposition: Home Minutes spent on discharge:: 20 Patient Condition:: Stable Medical Necessity - Tobacco Use Smoking Status: Never smoker Meaningful Use Info Meaningful Use Diagnoses (Choose all that apply): None applicable Code Visit Inpatient E&M: 38875 Disch Hosp
== END 2018-08-30 11:15 | disposition home or self-care (01) | DRG 419 ==
LOC: ED 12:46 → SDC 13:19 → AC 13:21 → MS3 14:50 → SDC 08-29 13:11 → MS3 08-29 13:13
PROVIDERS: Surgery; Admitting Provider Surgery; Emergency Provider Emergency Medicine; Family Provider Family Medicine; PCP Family Medicine; Referring Provider Surgery; Visit Provider Surgery
DX: K81.0 Acute cholecystitis (principal); Z98.1 Arthrodesis status; G43.909 Migraine, unspecified, not intractable, without status migrainosus; R50.9 Fever, unspecified
CPT/HCPCS: 36415; 71045; 74018; 74022; 74177; 76705; 78227; 80048; 80053; 80076; 81001; 81025; 83690; 84484; 85025; 87040; 88304; 93005; 97802; 99282; A9537; J7040; J7120; Q9967; A4216; J2405

== ENCOUNTER → 2018-09-02 10:19 | Outpatient (CLI) | payer OTHER, SELFPAY ==
[2018-08-26 20:38] VITALS: BMI 20.1
[2018-09-02 12:14] LABS: ALB/GLOB Ratio 0.6 RATIO (0.9-2.4); AST(SGOT) 50 U/L (15-37); Absolute Lymphocyte Count 1.15 X10^3/ul (0.83-4.51); Absolute Neutrophil Count 2.3 X10^3/uL (2.0-7.7); Alanine Aminotransfer ALT/SGPT 44 U/L (13-56); Alkaline Phosphatase 86 U/L (45-117); BUN 12 mg/dL (7-18); Basophil# 0.08 X10^3/uL; Basophil% 1.8 % (0-1); Creatinine, Serum 0.57 mg/dL (0.55-1.02); EST Glomerular Filtration Rate 123 mL/min (>60); Eosinophil# 0.04 X10^3/uL; Eosinophils% 0.9 % (0-5); Est Glom Filt Rate - Afr Amer 149 mL/min (>60); Globulin 4.8 g/dL (2.2-4.2); Glucose 102 mg/dL (74-106); Hematocrit 40.1 % (37-47); Hemoglobin 13.1 g/dl (12.0-15.0); Lipase 224 U/L (73-393); Lymphocyte # 1.15 X10^3/ul (4.0); Lymphocyte % 26.3 % (19-41); Mean Corp Hgb Conc 32.7 g/gl (32-36); Mean Corpuscular Hgb 29.2 pg (27.0-32.0); Mean Corpuscular Volume 89.5 fL (81-99); Mean Platelet Vol. 9.7 fl (6.2-12.0); Monocyte# 0.65 X10^3/uL; Monocyte% 14.9 % (0-10); Neutrophil # 2.33 X10^3/uL (2.7-7.7); Neutrophil % 53.4 % (47-70); Platelet Count 333 K/mm3 (150-450); Protein, Total 7.8 g/dL (6.4-8.2); RBC Distribution Width CV 12.6 % (11.6-14.6); RBC Distribution Width SD 40.9 fl (35.1-43.9); Red Blood Count 4.48 M/mm3 (4.2-5.4); Sodium Level 139 mmol/L (136-145); White Blood Count 4.4 K/mm3 (4.4-11.0)
[2018-09-02 12:15] LABS: Anion Gap 9 (5-15); Chloride 105 mmol/L (98-107); Potassium 3.4 mmol/L (3.5-5.1)
[2018-09-02 12:16] LABS: POSITIVE COUNT YES; POSITIVE DIFFERENTIAL NO; POSITIVE MORPHOLOGY YES
[2018-09-06 14:09] LABS: Pathologist Review Reviewed
--- OUTSIDE RECORDS SUMMARY | 2018-10-19 04:46 | XMS RPT_ITS ---
:1975 Author Organization OHIP Support Name Relationship Address Phone CISNEROS Unavailable [address] + [place] [address] MYLENE SWANSON Unavailable [address] + [place] [address] CISNEROS Unavailable [address] + [place] [address] SHERI KIRKLANDYCE Unavailable [address] + [place] [address] CISNEROS Unavailable [address] + [place] [address] SHERI KIRKLANDYCE Unavailable [address] + [place] [address] CISNEROS Unavailable [address] + [place] [address] SHERI KIRKLANDYCE Unavailable [address] + [place] [address] CISNEROS Unavailable [address] + [place] [address] SHERI KIRKLANDYCE Unavailable [address] + [place] [address] CISNEROS Unavailable [address] + [place] [address] SHERI KIRKLANDYCE Unavailable [address] + [place] [address] CISNEROS Unavailable [address] + [place] [address] SHERI KIRKLANDYCE Unavailable [address] + [place] [address] CISNEROS Unavailable [address] + [place] [address] SHERI KIRKLANDYCE Unavailable [address] [facility] [address] + [place] [address] CISNEROS Unavailable [address] + [place] [address] SHERI KIRKLANDYCE Unavailable [address] [facility] [address] + [place] [address] CISNEROS Unavailable [address] + [place] [address] SHERI KIRKLANDYCE Unavailable [address] [facility] [address] + [place] [address] Care Team Providers Name Role Phone JAMARCUS LUBIN Attending Unavailable JAMARCUS LUBIN Attending Unavailable John PFEIFFER (PA-C) Referring Unavailable John PFEIFFER (PA-C) Attending Unavailable JAMARCUS LUBIN J Referring Unavailable JUDITH SUAREZ (LEAD MECHANICAL ENGINEER) Attending Unavailable Dashawn, Sage Admitting Unavailable Carolina Rankin PA-C Attending Unavailable Dashawn, Sage Referring Unavailable Amee, Jamarcus Primary Care Unavailable Dashawn, Sage Consulting Unavailable Dashawn, Sage Attending Unavailable Dashawn, Sage Referring Unavailable [place], Jamarcus Primary Care Unavailable [place], Jamarcus Primary Care Unavailable Lyons, Sage Attending Unavailable Lyons, Sage Referring Unavailable Lyons, Sage Admitting Unavailable Lyons, Sage Attending Unavailable Amee, Jamarcus Primary Care Unavailable Dashawn, Sage Attending Unavailable [place], Jamarcus Referring Unavailable [place], Jamarcus Primary Care Unavailable STACIA FARIAS Consulting Unavailable STACIA FARIAS Attending Unavailable STACIA FARIAS Referring Unavailable Lyons, Sage Attending Unavailable [place], Jamarcus Primary Care Unavailable Dashawn, Sage Consulting Unavailable Robotham, Caterina Attending Unavailable Dashawn, Sage Referring Unavailable Amee, Jamarcus Primary Care Unavailable Lyons, Sage Consulting Unavailable Robotham, Caterina Attending Unavailable Lyons, Sage Referring Unavailable [place], Jamarcus Primary Care Unavailable Dashawn, Sage Consulting Unavailable Lyons, Sage Admitting Unavailable Dashawn, Sage Attending Unavailable Dashawn, Sage Referring Unavailable Amee, Jamarcus Primary Care Unavailable Dashawn, Sage Consulting Unavailable PROBLEMS PROBLEMS DATE TYPE CONDITION / CODE ATTENDING STATUS SOURCE 10/05/2018 Unknown Z12.31 - Encounter STACIA FARIAS Active [place] for screening Community mammogram for Hospital malignant neoplasm Repository of breast / Z12.31(ICD-10) 09/02/2018 Unknown R19.7 - Diarrhea, Sage Tamez Active [place] unspecified / Community R19.7(ICD-10) Hospital Repository 09/02/2018 Unknown R50.9 - Fever, Sage Tamez Active [place] unspecified / Community R50.9(ICD-10) Hospital Repository 08/26/2018 Unknown K81.0 - Acute Sage Tamez Active [place] cholecystitis / Community K81.0(ICD-10) Hospital Repository 07/23/2018 Active Unknown / TRENT JUDITH Active [facility] UNK(Unknown) (LEAD MECHANICAL ENGINEER) Main [place] Repository 07/17/2017 Active Other migraine, not NA Active [facility] intractable, [facility] without status Repository migrainosus / G43.809(ICD-10) 06/23/2018 Active Encounter for NA Active [facility] therapeutic drug [facility] level monitoring / Repository Z51.81(ICD-10) PROCEDURES PROCEDURES No Procedure Records FoundRESULTS RESULTS OBSOLETE Observed: 09/30/2018 Status: COMPLETED Source: [place] 12:00 AM [facility] REPOSITORY Refill (FAMPWS) SOL LEWIS ([id number]) 1975 F Date Time Provider Department 09/30/18 JAMARCUS LUBIN FAMPWS During your visit today, we recorded the following information about you: Christal Fields Psr 09/30/2018 8:44 AM Signed Patient has been identified by name and date of : Yes Pending Prescriptions Disp Refills HYDROCODONE 5 MG-ACETAMINOPHEN 325 MG TABLET 60 tablet 0 Sig: Take 1 tablet by mouth every 6 hours as needed for up to 31 days. STAS Class: C-II SHEILA: No RX INSTRUCTIONS: patient out of meds, had emergency surgery Print and leave at the front worker. No need to notify patient. Christal Fields Psr Shelli Mckeon Ma 09/30/2018 9:41 AM Signed Last office visit: 07/22/18 F/u scheduled: no follow up Last refilled on: [place] #60 on 08/20/18 Pt states she is out of medication, that she had emergency surgery. Shelli Mike Valencia Allergies As of Date: 09/30/2018 Noted Allergy Reaction CELESTONE (BETAMETHASONE SODIUM P*12/19/2010 14 - Other: See Comments Comments: Cheeks and neck red and hot- felt like she had a fever in top 1/2 of body, other steroids have been ok CODEINE 07/01/2004 Comments: GI UPSET, HEART RACES NEURONTIN (GABAPENTIN) 02/09/2014 14 - Other: See Comments Comments: Extreme dizziness SULFA (SULFONAMIDE ANTIBIOTICS) 07/01/2004 Comments: UNKNOWN Date Reviewed: 07/23/2018 [facility] [place] - Fully Assessed Reason for Visit: Refill Request [94] Visit Diagnosis:DDD (degenerative disc disease), lumbar [M51.36] Order(s):HYDROcodone-acetaminophen (NORCO) 5-325 mg per tabletTake 1 tablet by mouth every 6 hours as needed for up to 31 days. Earliest Fill Date: 09/30/18Disp: 60 tabletRfl: 0 Prescriptions as of 09/30/2018 Sig: HYDROCODONE 5 MG-ACETAMINOPHE* Take 1 tablet by mouth every * AMITRIPTYLINE 10 MG TABLET Take 1 tablet by mouth daily * SUMATRIPTAN 100 MG TABLET Take 1 tablet by mouth as nee* COMPOUNDED PRESCRIPTION Mammogram: screening KETOCONAZOLE 2 % SHAMPOO Apply 1 application to affect* SENNOSIDES 8.6 MG TABLET as needed for constipation Problem List As Of Date 09/30/2018 Noted Resolved Headache [R51] INVALID FOR*11/07/2009 Postlaminectomy syndrome [M96.1] INVALID FOR* More... Chronic low back pain [M54.5, G89.29] INVALID FOR*04/09/2015 Visit for wound check [Z51.89] INVALID FOR*06/25/2012 Basal cell carcinoma [C44.91] INVALID FOR* Dysmenorrhea [N94.6] INVALID FOR* Menorrhagia [N92.0] INVALID FOR* Migraine [G43.909] INVALID FOR* Prescriptions ordered this encounter Disp Refills Start End HYDROCODONE 5 MG-ACETAMINOPHEN 325 M* 60 t* 0 09/30/2018 10/31/2018 Class: Print RX Route: ORAL Sig: Take 1 tablet by mouth every 6 hours as needed for up to 31 days. Earliest Fill Date: 09/30/18 Medications Discontinued During This Encounter HYDROcodone-acetaminophen (NORCO) 5-* 60 t* 0 08/20/2018 09/30/2018 Class: Print RX Route: ORAL Sig: Take 1 tablet by mouth every 6 hours as needed for up to 31 days. Earliest Fill Date: 08/20/18 Disc: Reason for discontinue is not on file. Encounter Status:Closed by John PFEIFFER PA-C on 09/30/18 SURGERY VISIT REPORT Observed: 09/09/2018 Status: F Source: [place] 12:35 PM [facility] REPOSITORY [facility] [address] [place] [address] [address] [place] [address] OFFICE VISIT Date of Service: 09/02/18 MR#: [id number] Acct: [id number] Name: SOL LEWIS Rep #: [id number] : 1975 Provider: Sage Tamez MD Age/Sex: 42/F Location: [facility] Status: Signed Intake Vital Signs09/02/18 Blood Pressure 141/92 H 09/02/18 Blood Pressure Location Rt brachial Intake Visit Reasons: Fever of unknown origin Chief Complaint: post maya Mathematics 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 Required: No Is patient in pain?: No Allergies betamethasone [From Celestone] Allergy (Verified 09/02/18 12:47) Unknown betamethasone sodium phosphate [From Celestone] Allergy (Verified 09/02/18 12:47) Unknown codeine Allergy (Verified 09/02/18 12:47) Other Sulfa (Sulfonamide Antibiotics) Allergy (Verified 09/02/18 12:47) Other Medications Hydrocodone/Acetaminophen [Vicodin 5-300 mg Tablet] 2 tab PO QHS PRN 10/02/14 [History Confirmed 08/26/18] Amitriptyline HCl [Elavil] 10 mg PO QHS 08/26/18 [History Confirmed 12/06/18] Is last menstrual period known: No Post menopausal: No Patient : No Subjective Details: Patient is status post a laparoscopic cholecystectomy pathology report confirmed chronic cholecystitis. However the surgery showed acute cholecystitis with significant amount of swelling in the area. Patient had been complaining of fevers of unknown origin of temps going in the 99 range I obtained a white count on her which was normal normal hemoglobin she had an elevation in her monocytes her complete metabolic profile showed normal liver function test except for the AST to be slightly elevated but the alk phos was normal and her lipase was normal as well. She is complaining of less pain she has been having diarrhea daily. Objective Details: Incisions are healing nicely she does have moderate amount of bruising at her umbilical area there is no signs of cellulitis and she is flat and soft and nontender. Assessment AND Plan 1. Fever of unknown origin R50.9 2. Diarrhea R19.7 Plan At this point I am going to obtain stool cultures on her just to make sure she does not have C. difficile or any other pathogen within the colonic tolu. She is not ready to go back to work as of yet. He is making a slow progress. Coding Level of Care Code Global Post Op Diagnoses Fever of unknown origin R50.9 Diarrhea R19.7 09/09/18 1235 <Electronically signed by Sage Tamez MD> Date [facility] Signature: Date (if applicable) CC: Jamarcus Lubin MD SCREENING MAMM (CAD), Observed: 09/09/2018 Status: F Source: [place] 6:55 AM [facility] REPOSITORY [facility] Imaging Services [address] [place] [address] SCREENING MAMM (CAD), BILAT MR#: [id number] Acct: [id number] Name: SOL LEWIS Rep #: [id number] : 1975 F 42 From: Sami Gordon MD PCP: Jamarcus Lubin MD Status: REG CLI Study: SCREENING MAMM (CAD), BILAT Date of Exam: 09/09/18 Exam# [id number] Ordering Dr: JUDITH SUAREZ MAMMOGRAPHY - BILATERAL SCREENING REASON FOR EXAM: Female, 42 years old. Routine annual screening examination. PERTINENT HISTORY: Grandmother with breast cancer. Aunts with breast cancer. TECHNIQUE: Digital bilateral breast meron (3D mammographic acquisition) in the CC and MLO projections. 2-D mediolateral oblique (MLO) and craniocaudad (CC) views of both breasts were obtained. CAD: Full Field Digital Mammography with Computer Added Detection was performed. COMPARISON: Comparison is made with prior study dated April 16, 2016 and January 17, 2014. FINDINGS: Breast Composition: The breasts are extremely dense, which lowers the sensitivity of mammography. There are no dominant masses or suspicious calcifications. No other significant abnormalities are identified. There has been no significant change since the prior study. BI/SCREENING MAMM (CAD), BILAT IMPRESSION: Stable bilateral screening mammogram. Yearly follow-up mammogram recommended. (A) ASSESSMENT CATEGORY: BIRADS Category 1: Negative. A letter regarding these results will be sent to the patient by the facility within 30 days. Approximately 10% of breast cancers are not detected by mammography. A normal mammogram should not delay biopsy of a clinically suspicious abnormality. [id number] Electronically Signed: Sami Gordon MD at 14:58 EST Tel [phone], Service support , CC: JUDITH SUAREZ; Jamarcus Lubin MD Concrete Hopper Operator: Signed STOOL Observed: 09/04/2018 Status: F Source: [place] LACT[facility]ERRIN/WBC 7[facility]45 PM [facility] Reason for exam? diarrhea Stool Lacto/WBC Normal Reference Range = Negative Fecal WBC Lactoferrin Negative: No Fecal WBC Lactoferrin present Performed By: #### M100.0605, M100.637 #### [facility] [address] [place], [place], [id number] Observed: 09/04/2018 Status: F Source: [place] ENTERIC PATHOGEN 7:45 PM [facility] PANEL STOOL REPOSITORY Reason for exam? diarrhea EP PANEL STOOL Normal Reference Range = Not Detected Not detected for Campylobacter group, Salmonella species, Shigella species, Vibrio Group, Yersinia enterocolitica, EHEC (Shiga Toxin 1, Shiga Toxin 2), Norovirus Gl/Gll, and Rotavirus A. Other common stool pathogens are not detected on this panel include: Aeromonas/Plesiomonas or parasites. Order testing for these organisms separately if suspected. This is an amplified DNA test which makes it both specific and sensitive. CAMPYLOBACTER Not Detected Salmonella Not Detected Shigella sp. Not Detected Shiga Toxin Not Detected Yersinia Not Detected VIBRIO Not Detected Norovirus Not Detected Rotavirus Not Detected Performed By: #### M100.0605, M100.637 #### [facility] [address] [place], [place], [id number] Observed: 09/04/2018 Status: F Source: [place] CDIFF (MOLECULAR) 7:45 PM [facility] REPOSITORY Cdiff-Molecular Normal Reference Range = Negative C. Diff DNA Negative- No toxigenic C. Diff DNA Detected NAAT METHOD Testing was performed using nucleic acid amplification Performed By: #### M100.6796 #### [facility] [place], [address] Observed: 09/04/2018 Status: F Source: [place] CDIFF (MOLECULAR) 7:45 PM [facility] REPOSITORY Cdiff-Molecular Normal Reference Range = Negative C. Diff DNA Negative- No toxigenic C. Diff DNA Detected NAAT METHOD Testing was performed using nucleic acid amplification Performed By: #### M100.6796 #### [facility] [address] [place], [place], [id number] STOOL Observed: 09/04/2018 Status: F Source: [place] LACTOFERRIN/WBC 7:45 PM [facility] REPOSITORY Reason for exam? diarrhea Stool Lacto/WBC Normal Reference Range = Negative Fecal WBC Lactoferrin Negative: No Fecal WBC Lactoferrin present Performed By: #### M100.0605, M100.637 #### [facility] [address] [place], [address] Observed: 09/04/2018 Status: F Source: [place] ENTERIC PATHOGEN 7:45 PM [facility] PANEL STOOL REPOSITORY Reason for exam? diarrhea EP PANEL STOOL Normal Reference Range = Not Detected Not detected for Campylobacter group, Salmonella species, Shigella species, Vibrio Group, Yersinia enterocolitica, EHEC (Shiga Toxin 1, Shiga Toxin 2), Norovirus Gl/Gll, and Rotavirus A. Other common stool pathogens are not detected on this panel include: Aeromonas/Plesiomonas or parasites. Order testing for these organisms separately if suspected. This is an amplified DNA test which makes it both specific and sensitive. CAMPYLOBACTER Not Detected Salmonella Not Detected Shigella sp. Not Detected Shiga Toxin Not Detected Yersinia Not Detected VIBRIO Not Detected Norovirus Not Detected Rotavirus Not Detected Performed By: #### M100.0605, M100.637 #### [facility] [address] [place], [address] Observed: 09/04/2018 Status: F Source: [place] OVA AND PARASITES 7:45 PM [facility] REPOSITORY Reason for exam? diarrhea O + P OVA AND PARASITES EXAM, ROUTINE These results were obtained using wet preparation(s) and trichrome stained smear. This test does not include testing for Crytosporidium parvum, Cyclospora, or Microsporidia. TESTING PERFORMED AT [facility]. ORIGINAL REPORT ON FILE IN LAB CONTAINS ADDITIONAL TEST SITE INFORMATION. Ova/Parasite Exam NO OVA, CYSTS, OR PARASITES FOUND. Performed By: #### M600.5000 #### [facility] [place], [address] COMPREHENSIVE METABOLIC Collected: 09/02/2018 Status: F Source: [place] [facility] 10:32 AM [facility] REPOSITORY TYPE CODE TESTS RESULT OUT OF RANGE REFERENCE UNITS LAB L501.0100 74-106 mg/dL Normal GLU 102 Result Comment: Fasting Glucose result from 100 to 125 mg/dL suggests IMPAIRED HOMEOSTASIS per A.D.A. criteria. Please note revised GLUCOSE reference range effective 2017. LAB L501.1000 7-18 mg/dL Normal BUN 12 LAB L501.1100 0.55-1.02 mg/dL Normal CREAT,SERUM 0.57 Result Comment: The validity of the calculated GFR AND GFRAA in patients over 70 years has not been determined. Clinical correlation is essential. LAB L501.1110 >60 mL/min Normal EST GFR 123 Result Comment: Non- GFR Calc LAB L501.1115 >60 mL/min Normal EST GFR - AA 149 Result Comment: GFR Calc LAB L501.1300 10-20 RATIO High BUN/CRE 21.0 LAB L501.1500 6.4-8.2 g/dL T Normal PROT 7.8 LAB L501.1800 3.2-5.0 g/dL Low ALB 3.0 LAB L501.1950 2.2-4.2 g/dL High GLOB 4.8 LAB L501.2000 0.9-2.4 RATIO Low A/G 0.6 LAB L501.2200 8.5-10.1 mg/dL CA Normal 9.0 LAB L501.4100 15-37 U/L High AST 50 LAB L501.4305 45-117 U/L Normal ALK P 86 LAB L501.4405 13-56 U/L Normal ALT 44 LAB L501.4600 0.20-1.00 mg/dL T Normal BILI 0.30 LAB L501.5300 136-145 mmol/L NA Normal 139 LAB L501.5600 3.5-5.1 mmol/L Low K 3.4 LAB L501.5900 98-107 mmol/L CL Normal 105 LAB L501.6100 21.0-32.0 mmol/L Normal CO2 25.0 LAB L501.6200 5-15 Normal GAP 9 Performed By: #### L500.4050, L501.2450 #### [facility] [address] [place], [address] LIPASE Collected: 09/02/2018 Status: F Source: [place] 10:32 AM [facility] REPOSITORY TYPE CODE TESTS RESULT OUT OF RANGE REFERENCE UNITS LAB L501.2450 73-393 U/L Normal LIPASE 224 Performed By: #### L500.4050, L501.2450 #### [facility] [address] [facility] [place], [address] CBC W/DIFF, AUTOMATED Collected: 09/02/2018 Status: C Source: [place] 10:32 [facility] REPOSITORY TYPE CODE TESTS RESULT OUT OF RANGE REFERENCE UNITS LAB L100.1000 4.4-11.0 K/mm3 Normal WBC 4.4 LAB L100.1200 4.2-5.4 M/mm3 Normal RBC 4.48 LAB L100.1300 12.0-15.0 g/dl Normal HGB 13.1 LAB L100.1400 37-47 % Normal HCT 40.1 LAB L100.1500 81-99 fL Normal MCV 89.5 LAB L100.1600 27.0-32.0 pg Normal MCH 29.2 LAB L100.1700 32-36 g/gl Normal MCHC 32.7 LAB L100.1810 11.6-14.6 % Normal RDW CV 12.6 LAB L100.1820 35.1-43.9 fl Normal RDW SD 40.9 LAB L100.1900 150-450 K/mm3 Normal PLT 333 LAB L100.2000 6.2-12.0 fl Normal MPV 9.7 LAB L100.2100 47-70 % Normal NEUT% 53.4 LAB L100.2200 19-41 % Normal LY% 26.3 LAB L100.2300 0-10 % High MONO% 14.9 LAB L100.2400 0-5 % Normal EO% 0.9 LAB L100.2500 0-1 % High BASO% 1.8 LAB L100.2550 0.0-0.9 % High IM GRAN % 2.700 Result Comment: IG% - Immature Granulocytes (promyelocytes, myelocytes and metamyelocytes) > 1% indicates that a LEFT SHIFT is Present. LAB L100.2620 2.0-7.7 X10 3/uL Normal Absolute Neut 2.3 LAB L100.2720 0.83-4.51 X10 3/ul Normal Absolute Lymph 1.15 LAB L100.9900 Normal PATH REV Reviewed Result Comment: AMENDED REPORT 09/06/18 1409 PATH REV previously reported as: January Performed By: #### L100.0100 #### [facility] [address] [facility] [place], [address] DISCHARGE SUMMARY Observed: 08/31/2018 Status: F Source: [place] 4:11 PM [facility] REPOSITORY [facility] Medical Records Department [address] [place] [address] Discharge Summary 08/31/18 1302 MR#: [id number] Acct: [id number] Name: SOL LEWIS Rep #: [id number] : 1975 42 From: Carolina Rankin PA-C PCP: Jamarcus Lubin MD Status: DIS IN Y Location: [facility] GG140-9 Discharge Date and Diagnosis Date of Admission: 08/26/18 Date of Discharge: 08/30/18 - Primary Discharge Diagnosis Acute cholecystitis Hospital Course and Treatment Operations: cholecystecomy Summary of Care Provided: The patient is a 42 year old F who presented with abdominal pain, nausea and back pain. CT scan demonstrated unremarkable for acute pathologic process. RUQ u/s was unremarkable. HIDA scan demonstrated non-visualization of the gallbladder. Dr. Tamez performed a laparoscopic cholecystectomy on 08/26/2018. Patient tolerated the procedure well. Patient continued to have fevers. Repeat CT scan was obtained on 08/28/18 which demonstrated possible GI bleed. No fluid noted near the gallbladder fossa. CXR demonstrated bilateral pleural effusions. KUB showed no acute abnormalities. Upon discharge, patient noted minimal amount of abdominal discomfort. She was tolerating a diet well. She denies fever currently. She denied nausea, vomiting. Positive flatus. - Physical Exam General: Alert, Oriented x3, Cooperative Lungs: Clear to auscultation, Normal air movement Cardiovascular: Regular rate, No murmurs Abdomen: Bowel Sounds Present, Soft, Non Tender, - - Incisions c/d/i. No erythema or infection noted. Moderate amount of ecchymosis. Vital Signs Temp Pulse Resp BP Pulse Ox 98.2 F 89 18 113/81 H 99 08/30/18 09:10 08/30/18 09:10 08/30/18 09:10 08/30/18 09:10 08/30/18 09:10 Oxygen Delivery Method Room Air Weight: 124 lb 12.506 oz Body Mass Index (BMI) 20.1 Intake and Output for Last 24 Hours Intake Total 2021 / 2021 1134 / 1134 Output Total 1850 / 1850 1600 / 1600 Balance 172 / 172 -466 / -466 Discharge Diet: Light diet - advance as tolerated Discharge Activity: May Not Drive - for 2-3 days or while taking narcotic pain medications., - - Do not drive, work heavy equipment or sign legal documents for 24 hours. May shower in (days): 1 - with the bandage in place. Additional Activity Instructions:: Pain medication may cause nausea. You should typically eat light foods as you take your pain medications. Pain medication may also cause constipation. If this is a problem for you, please discuss with your doctor. Call your doctor if your incision/area has: Continuous Slow Oozing, Sudden Increased Bleeding, Increased Pain/ Swelling, Increased Redness, Foul Smelling Discharge Call your doctor if you observe: Fever of 101 or Higher Suture Line Care: Avoid Pulling/Pushing, Avoid Pinching/Bending Additional Dressing/Incision Instructions:: Leave operative bandaids on for 2 days. When you remove dressing, leave Steri-Strips on until your follow-up appointment, or until the Steri-Strips fall off on their own. Home Medications: Medications to take at Discharge Hydrocodone/Acetaminophen [Vicodin 5-300 mg Tablet] 2 tablet PO QHS PRN 10/02/14 Amitriptyline HCl [Elavil] 10 mg PO QHS 08/26/18 Primary Care Physician: Jamarcus Lubin MD [Primary Care Provider] - Please Follow Up With: Sage Tamez MD - Please call [phone] to schedule an appointment. When: 7 days after your surgery. Disposition: Home Minutes spent on discharge:: 20 Patient Condition:: Stable Medical Necessity - Tobacco Use Smoking Status: Never smoker Meaningful Use Info Meaningful Use Diagnoses (Choose all that apply): None applicable Code Visit Inpatient Molly COREAS M: [id number] Disch Hosp 08/31/18 1611 <Electronically signed by Carolina Rankin PA-C> Date Carolina Rankin PA-C Cosigner Signature (if applicable): Date CC: Carolina Rankin PA-C; Jamarcus Lubin MD Signed 12 LEAD ELECTROCARDIOGRAM Observed: 08/30/2018 Status: F Source: [place] 2:29 PM [facility] REPOSITORY [facility] Cardiovascular Services [address] [place] [id number] 12 Lead EKG 08/26/18 0723 MR#: [id number] Acct: [id number] Name: SOL LEWIS Rep #: [id number] : 1975 42 From: Trell Conn MD Attending Dr: Sage Tamez MD Status: DIS IN Ordering Dr: Manny Roberts MD Date: 08/26/18 Location: [facility] Sex: F C Admitted: 08/28/18 Test Reason : CP Blood Pressure : / mmHG Vent. Rate : 087 BPM Atrial Rate : 087 BPM P-R Int : 146 ms QRS Dur : 090 ms QT Int : 350 ms P-R-T Axes : 087 054 069 degrees QTc Int : 421 ms Normal sinus rhythm Right atrial enlargement Borderline ECG Confirmed by TRELL CONN MD ([id number]), photo editor ROSEMARIE CALLE ([id number]) on 08/30/2018 2:29:08 PM Referred By: Sage Tamez Confirmed By:TRELL CONN MD 08/30/18 1429 Date Trell Conn MD CC: Sage Tamez MD; Manny Roberts MD; Jamarcus Lubin MD Signed DISCHARGE INSTRUCTION Observed: 08/30/2018 Status: F Source: [place] 10:32 AM [facility] REPOSITORY [facility] Medical Records Department [address] [place] [address] Instructions for Home/Discharge Instructions 08/30/18 1031 MR#: [id number] Acct: [id number] Name: SOL LEWIS Rep #: [id number] : 1975 42 From: Sgae Tamez MD PCP: Jamarcus Lubin MD Status: ADM IN Discharge Diet: Light diet - advance as tolerated Discharge Activity: May Not Drive - for 2-3 days or while taking narcotic pain medications., - - Do not drive, work heavy equipment or sign legal documents for 24 hours. May shower in (days): 1 - with the bandage in place. Additional Activity Instructions:: Pain medication may cause nausea. You should typically eat light foods as you take your pain medications. Pain medication may also cause constipation. If this is a problem for you, please discuss with your doctor. Call your doctor if your incision/area has: Continuous Slow Oozing, Sudden Increased Bleeding, Increased Pain/ Swelling, Increased Redness, Foul Smelling Discharge Call your doctor if you observe: Fever of 101 or Higher Suture Line Care: Avoid Pulling/Pushing, Avoid Pinching/Bending Additional Dressing/Incision Instructions:: Leave operative bandaids on for 2 days. When you remove dressing, leave Steri-Strips on until your follow-up appointment, or until the Steri-Strips fall off on their own. Allergies/Adverse Reactions: Allergies betamethasone [From Celestone] Allergy (Verified 08/26/18 07:30) Unknown betamethasone sodium phosphate [From Celestone] Allergy (Verified 08/26/18 07:30) Unknown codeine Allergy (Verified 08/26/18 07:30) Other Sulfa (Sulfonamide Antibiotics) Allergy (Verified 08/26/18 07:30) Other Medications to take at Discharge Hydrocodone/Acetaminophen [Vicodin 5-300 mg Tablet] 2 tablet PO QHS PRN 10/02/14 Amitriptyline HCl [Elavil] 10 mg PO QHS 08/26/18 Primary Care Physician: Jamarcus Lubin MD [Primary Care Provider] - Test Results: Test results from this visit will be discussed in further detail at your follow-up appointment, if applicable. Please Follow Up With: Sage Tamez MD - Please call [phone] to schedule an appointment. When: 7 days after your surgery. 08/30/18 1032 <Electronically signed by Sage Tamez MD> Date Sage Tamez MD CC: Jamarcus Lubin MD Observed: 08/29/2018 Status: F Source: [place]ARLINE CULTURE, BLOOD (WB) 2:00 PM [facility] REPOSITORY List Antibiotics Last 48 Hours? ZOSYN Has pt arrived? Y BC No growth in 5 days. Performed By: #### M200.1000 #### [facility] [address] [place], [address] Observed: 08/29/2018 Status: F Source: [place] CULTURE, BLOOD (WB) 1:50 PM [facility] REPOSITORY List Antibiotics Last 48 Hours? ZOSYN Has pt arrived? Y BC No growth in 5 days. Performed By: #### M200.1000 #### [facility] [address] [place], [address] CBC W/DIFF, AUTOMATED Collected: 08/29/2018 Status: F Source: [place] 5:50 AM [facility] REPOSITORY TYPE CODE TESTS RESULT OUT OF RANGE REFERENCE UNITS LAB L100.1000 4.4-11.0 K/mm3 Normal WBC 8.4 LAB L100.1200 4.2-5.4 M/mm3 Low RBC 4.02 LAB L100.1300 12.0-15.0 g/dl Low HGB 11.6 LAB L100.1400 37-47 % Low HCT 36.9 LAB L100.1500 81-99 fL Normal MCV 91.8 LAB L100.1600 27.0-32.0 pg Normal MCH 28.9 LAB L100.1700 32-36 g/gl Low MCHC 31.4 LAB L100.1810 11.6-14.6 % Normal RDW CV 13.0 LAB L100.1820 35.1-43.9 fl Normal RDW SD 43.8 LAB L100.1900 150-450 K/mm3 Low PLT 148 LAB L100.2000 6.2-12.0 fl Normal MPV 10.1 LAB L100.2100 47-70 % High NEUT% 79.4 LAB L100.2200 19-41 % Low LY% 13.0 LAB L100.2300 0-10 % Normal MONO% 6.4 LAB L100.2400 0-5 % Normal EO% 0.6 LAB L100.2500 0-1 % Normal BASO% 0.2 LAB L100.2550 0.0-0.9 % Normal IM GRAN % 0.400 Result Comment: IG% - Immature Granulocytes (promyelocytes, myelocytes and metamyelocytes) > 1% indicates that a LEFT SHIFT is Present. LAB L100.2620 2.0-7.7 X10 3/uL Normal Absolute Neut 6.7 LAB L100.2720 0.83-4.51 X10 3/ul Normal Absolute Lymph 1.09 Performed By: #### L100.0100 #### [facility] [address] [facility] [place], [address] ABDOMEN/PELVIS W IV CONT Observed: 08/28/2018 Status: F Source: [facility] 8:14 PM [facility] REPOSITORY [facility] Imaging Services [address] [place] [address] Abdomen/Pelvis W IV Cont ONLY MR#: [id number] Acct: [id number] Name: SOL LEWIS Rep #: [id number] : 1975 F 42 From: Jessica Wells MD PCP: Jamarcus Lubin MD Status[place] [facility] [place] Abdomen/Pelvis W IV Cont ONLY Date of Exam: 08/28/18 Exam# [id number] Ordering Dr: Caetrina Akbar MD STUDY: CT ABDOMEN AND PELVIS WITH CONTRAST REASON FOR EXAM: Female, 42 years old. Fever. Lap cholecystectomy 08/26/2018 RADIATION DOSAGE (If Supplied By Facility): CTDIvol = ( 10.19 ) mGy, DLP = ( 373.94 ) mGycm TECHNIQUE: Transaxial images were obtained from the dome of the diaphragm to the symphysis pubis without oral contrast. 100ML ml of Isovue 300 contrast was administered. Sagittal and coronal images were reconstructed. Individualized dose optimization techniques were used for this CT. COMPARISON: August 26, 2018 FINDINGS: There are small bilateral pleural effusions associated with dependent consolidation within the lower lobes. The visualized portions of the heart are within normal limits. Normal liver. The gallbladder is surgically absent. There is trace fluid within the gallbladder fossa. Normal spleen. Stable pancreas. Normal bilateral adrenal glands. There is mild right pelvic caliectasis likely related to the distended urinary bladder. Normal left kidney. Normal visualized stomach. Normal small intestine. Within the cecum there is a new high attenuation 2.1 x 1.3 x 1.2 cm rounded focus (image 95 series 2 and image 37 series 601). The appendix is visualized and appears normal. Normal abdominal aorta. Normal inferior vena cava. Normal retroperitoneum. The urinary bladder is fluid-filled and distended. There is a small amount of free fluid within the pelvis. Normal abdominal wall. There are postsurgical changes at L5-S1. CT/Abdomen/Pelvis W IV Cont ONLY IMPRESSION: Indeterminate new high attenuation focus within the cecum cannot exclude a gastrointestinal bleed. New bilateral pleural effusions associated with dependent consolidation within the lower lobes. Fluid-filled distended urinary bladder. N.B. : The above information has been verbally conveyed by Jessica Wells MD to Shira Calle RN, on 08/28/2018 22:51:35 (ET). Electronically Signed: Jessica Wells MD at 22:52 EST Tel , Service support , CC: Caterina Abkar MD; Jamarcus Lubin MD Concrete Hopper Operator: Signed URINALYSIS, COMPLETE Collected: 08/28/2018 Status: F Source: [place] 7:15 PM [facility] REPOSITORY Order Comment: How was Urine Obtained? POINTER HELPER TO SPECIFY TYPE CODE TESTS RESULT OUT OF RANGE REFERENCE UNITS LAB L400.3000 Yellow COLOR Normal Yellow LAB L400.3050 Clear Normal CLARITY Sl. Cloudy LAB L400.3200 Normal mg/dl Normal GLUCOSE, UR Normal LAB L400.3300 Negative mg/dL Normal BILIRUBIN URINE Negative LAB L400.3400 Negative mg/dl High 15 KETONE UR LAB L400.3465 1.002-1.030 Normal SP.GR. DIPSTX 1.015 LAB L400.3550 5.0 - 8.0 pH UR Normal 8.0 LAB L400.3600 Negative mg/dl PROT Normal DIPSTX Negative LAB L400.3700 Normal mg/dl Normal UROBILI Normal LAB L400.3750 Negative Normal NITRITE UR Negative LAB L400.3780 Negative /ul Normal OCCULT BLOOD-UR Negative LAB L400.3800 Negative /ul LEUK Normal ESTERASE Negative LAB L400.4050 0-5 /hpf WBC 0 Normal SEEN LAB L400.4100 0-5 /hpf 0 Normal RBC-UA SEEN LAB L400.4150 5-10 /hpf SQUAM 0 Normal EPI SEEN LAB L400.4300 None Seen /hpf Normal BACTERIA RARE LAB L400.4350 <or=2+ /hpf 0 Normal MUCUS, URINE SEEN Performed By: #### L400.0001 #### [facility] [address] [place], [place], [address] CBC W/DIFF, AUTOMATED Collected: 08/28/2018 Status: F Source: [place] 7:01 PM [facility] REPOSITORY TYPE CODE TESTS RESULT OUT OF RANGE REFERENCE UNITS LAB L100.1000 4.4-11.0 K/mm3 Normal WBC 8.6 LAB L100.1200 4.2-5.4 M/mm3 Low RBC 4.12 LAB L100.1300 12.0-15.0 g/dl Normal HGB 12.0 LAB L100.1400 37-47 % Normal HCT 37.9 LAB L100.1500 81-99 fL Normal MCV 92.0 LAB L100.1600 27.0-32.0 pg Normal MCH 29.1 LAB L100.1700 32-36 g/gl Low MCHC 31.7 LAB L100.1810 11.6-14.6 % Normal RDW CV 13.1 LAB L100.1820 35.1-43.9 fl High RDW SD 44.2 LAB L100.1900 150-450 K/mm3 Low PLT 141 LAB L100.2000 6.2-12.0 fl Normal MPV 10.0 LAB L100.2100 47-70 % High NEUT% 87.6 LAB L100.2200 19-41 % Low LY% 7.4 LAB L100.2300 0-10 % Normal MONO% 4.7 LAB L100.2400 0-5 % Normal EO% 0.1 LAB L100.2500 0-1 % Normal BASO% 0.1 LAB L100.2550 0.0-0.9 % Normal IM GRAN % 0.100 Result Comment: IG% - Immature Granulocytes (promyelocytes, myelocytes and metamyelocytes) > 1% indicates that a LEFT SHIFT is Present. LAB L100.2620 2.0-7.7 X10 3/uL Normal Absolute Neut 7.5 LAB L100.2720 0.83-4.51 X10 3/ul Low Absolute Lymph 0.63 Performed By: #### L100.0100 #### [facility] [address] [place], [place], [address] BASIC METABOLIC Collected: 08/28/2018 Status: F Source: [place] PROFILE (BMP) 7:01 PM [facility] REPOSITORY TYPE CODE TESTS RESULT OUT OF RANGE REFERENCE UNITS LAB L501.0100 74-106 mg/dL Normal GLU 101 Result Comment: Fasting Glucose result from 100 to 125 mg/dL suggests IMPAIRED HOMEOSTASIS per A.D.A. criteria. Please note revised GLUCOSE reference range effective 2017. LAB L501.1000 7-18 mg/dL Low BUN 5 LAB L501.1100 0.55-1.02 mg/dL Normal CREAT,SERUM 0.66 Result Comment: The validity of the calculated GFR AND GFRAA in patients over 70 years has not been determined. Clinical correlation is essential. LAB L501.1110 >60 mL/min Normal EST GFR 104 Result Comment: Non- GFR Calc LAB L501.1115 >60 mL/min Normal EST GFR - AA 126 Result Comment: GFR Calc LAB L501.1255 ml/min Normal Estimated CRCL 99.22 LAB L501.1300 10-20 RATIO Low BUN/CRE 7.6 LAB L501.2200 8.5-10 mg/dL Low .1 CA 8.4 LAB L501.5300 136-14 mmol/L Normal 5 NA 139 LAB L501.5600 3.5-5. mmol/L Normal 1 K 3.5 LAB L501.5900 98-107 mmol/L Normal CL 103 LAB L501.6100 21.0-3 mmol/L Normal 2.0 CO2 29.0 LAB L501.6200 5-15 Normal GAP 7 Performed By: #### L500.2500 #### [facility] [address] [facility]. [place], [place], [address] LIVER PROFILE Collected: 08/28/2018 Status: F Source: [place] 7:01 PM [facility] REPOSITORY TYPE CODE TESTS RESULT OUT OF RANGE REFERENCE UNITS LAB L501.1500 6.4-8.2 g/dL Normal T PROT 6.7 LAB L501.1800 3.2-5.0 g/dL Low ALB 2.9 LAB L501.1950 2.2-4.2 g/dL Normal GLOB 3.8 LAB L501.4100 15-37 U/L Normal AST 25 LAB L501.4305 45-117 U/L Normal ALK P 64 LAB L501.4405 13-56 U/L Normal ALT 37 LAB L501.4600 0.20-1.00 mg/dL Normal T BILI 0.60 LAB L501.4700 0.00-0.30 mg/dL Normal D BILI 0.18 Performed By: #### L500.3400 #### [facility] [address] [facility]. [place], [place], [address] CHEST 1 VIEW Observed: 08/28/2018 Status: F Source: [place] (PORTABLE) 6:43 PM [facility] REPOSITORY [facility] Imaging Services [address] [place] [address] Chest 1 View (Portable) MR#: [id number] Acct: [id number] Name: SOL LEWIS Rep #: [id number] : 1975 F 42 From: Ashley Guerrero MD PCP: Jamarcus Lubin MD Status: ADM ALYSHA Study: Chest 1 View (Portable) Date of Exam: 08/28/18 Exam# [id number] Ordering Dr: Caterina Akbar MD STUDY: X-RAY CHEST REASON FOR EXAM: Female, 42 years old. 3 day status post gallbladder surgery, fever. TECHNIQUE: Portable chest. COMPARISON: None. FINDINGS: The lungs are clear and expanded. There is no demonstrated pleural abnormality. Normal size heart. Normal mediastinum and waqar. Normal visualized pulmonary arteries. Normal visualized aortic arch and descending thoracic aorta. Normal visualized thoracic spine. Normal visualized ribs, clavicles, and shoulders. There is no demonstrated abnormality of the visualized soft tissue structures of the upper abdomen. RAD/Chest 1 View (Portable) IMPRESSION: Normal x-ray examination of the chest. Electronically Signed: Ashley Guerrero MD at 20:13 EST Tel , Service support , CC: Caterina Akbar MD; Jamarcus Lubin MD Concrete Hopper Operator: Signed ABDOMEN SINGLE VIEW Observed: 08/28/2018 Status: F Source: [place] (PORTABLE) 6:43 PM [facility] REPOSITORY [facility] Imaging Services [address] [place] [address] Abdomen Single View (Portable) MR#: [id number] Acct: [id number] Name: SOL LEWIS Rep #: [id number] : 1975 F 42 From: Ashley Guerrero MD PCP: Jamarcus Lubin MD Status: ADM ALYSHA Study: Abdomen Single View (Portable) Date of Exam: 08/28/18 Exam# [id number] Ordering Dr: Caterina Akbar MD STUDY: X-RAY - ABDOMEN/PELVIS REASON FOR EXAM: Female, 42 years old. 3 day status post gallbladder surgery, fever. TECHNIQUE: Portable supine abdomen. COMPARISON: CT abdomen pelvis 08/26/2011. FINDINGS: There is a nonobstructive bowel gas pattern. No organomegaly. No abnormal calcifications. Normal visualized osseous structures. RAD/Abdomen Single View (Portable) IMPRESSION: Normal x-ray examination of the abdomen and pelvis. Electronically Signed: Ashley Guerrero MD at 20:15 EST Tel , Service support , CC: Caterina Akbar MD; Jamarcus Lubin MD Concrete Hopper Operator: Signed COMPREHENSIVE METABOLIC Collected: 08/27/2018 Status: F Source: [place] ANA 3:03 PM [facility] REPOSITORY TYPE CODE TESTS RESULT OUT OF RANGE REFERENCE UNITS LAB L501.0100 74-106 mg/dL High GLU 112 Result Comment: Fasting Glucose result from 100 to 125 mg/dL suggests IMPAIRED HOMEOSTASIS per A.D.A. criteria. Please note revised GLUCOSE reference range effective 2017. LAB L501.1000 7-18 mg/dL Normal BUN 8 LAB L501.1100 0.55-1.02 mg/dL Normal CREAT,SERUM 0.70 Result Comment: The validity of the calculated GFR AND GFRAA in patients over 70 years has not been determined. Clinical correlation is essential. LAB L501.1110 >60 mL/min Normal EST GFR 98 Result Comment: Non- GFR Calc LAB L501.1115 >60 mL/min Normal EST GFR - AA 118 Result Comment: GFR Calc LAB L501.1255 ml/min Normal Estimated CRCL 93.55 LAB L501.1300 10-20 RATIO Normal BUN/CRE 11.5 LAB L501.1500 6.4-8. g/dL Normal 2 T PROT 6.6 LAB L501.1800 3.2-5. g/dL Low 0 ALB 3.0 LAB L501.1950 2.2-4. g/dL Normal 2 GLOB 3.6 LAB L501.2000 0.9-2. RATIO Low 4 A/G 0.8 LAB L501.2200 8.5-10 mg/dL Normal .1 CA 8.5 LAB L501.4100 15-37 U/L Normal AST 34 LAB L501.4305 45-117 U/L Normal ALK P 53 LAB L501.4405 13-56 U/L Normal ALT 40 LAB L501.4600 0.20-1 mg/dL Normal .00 T BILI 0.60 LAB L501.5300 136-14 mmol/L Normal 5 NA 138 LAB L501.5600 3.5-5. mmol/L Normal 1 K 4.0 LAB L501.5900 98-107 mmol/L Normal CL 105 LAB L501.6100 21.0-3 mmol/L Normal 2.0 CO2 24.0 LAB L501.6200 5-15 Normal GAP 9 Performed By: #### L500.4050, L501.2450 #### [facility] [address] [place], [address] LIPASE Collected: 08/27/2018 Status: F Source: [place] 3:03 PM [facility] REPOSITORY TYPE CODE TESTS RESULT OUT OF RANGE REFERENCE UNITS LAB L501.2450 73-393 U/L Normal LIPASE 381 Performed By: #### L500.4050, L501.2450 #### [facility] [address] [place], [address] CBC W/DIFF, AUTOMATED Collected: 08/27/2018 Status: F Source: [place] 3:03 [facility] REPOSITORY TYPE CODE TESTS RESULT OUT OF RANGE REFERENCE UNITS LAB L100.1000 4.4-11.0 K/mm3 Normal WBC 10.7 LAB L100.1200 4.2-5.4 M/mm3 Normal RBC 4.25 LAB L100.1300 12.0-15.0 g/dl Normal HGB 12.7 LAB L100.1400 37-47 % Normal HCT 38.9 LAB L100.1500 81-99 fL Normal MCV 91.5 LAB L100.1600 27.0-32.0 pg Normal MCH 29.9 LAB L100.1700 32-36 g/gl Normal MCHC 32.6 LAB L100.1810 11.6-14.6 % Normal RDW CV 13.0 LAB L100.1820 35.1-43.9 fl Normal RDW SD 42.8 LAB L100.1900 150-450 K/mm3 Normal PLT 154 LAB L100.2000 6.2-12.0 fl Normal MPV 10.1 LAB L100.2100 47-70 % High NEUT% 89.5 LAB L100.2200 19-41 % Low LY% 4.5 LAB L100.2300 0-10 % Normal MONO% 5.7 LAB L100.2400 0-5 % Normal EO% 0.0 LAB L100.2500 0-1 % Normal BASO% 0.1 LAB L100.2550 0.0-0.9 % Normal IM GRAN % 0.200 Result Comment: IG% - Immature Granulocytes (promyelocytes, myelocytes and metamyelocytes) > 1% indicates that a LEFT SHIFT is Present. LAB L100.2620 2.0-7.7 X10 3/uL High Absolute Neut 9.6 LAB L100.2720 0.83-4.51 X10 3/ul Low Absolute Lymph 0.48 LAB L100.4500 SMEAR Normal COMMENT Result Comment: LYMPHOPENIA NOTED LAB L100.5500 ADEQ Normal PLT ADEQUATE EST LAB L100.7000 NORM C AND NORMAL C Normal RED NORM C+C CELL MORPH Performed By: #### L100.0100 #### [facility] [address] [facility] [place], [address] OPERATIVE REPORT Observed: 08/26/2018 Status: F Source: [place] 5:18 PM [facility] REPOSITORY [facility] Medical Records Department [address] [place] [address] Operative Report 08/26/18 1519 MR#: [id number] Acct: [id number] Name: SOL LEWIS Rep #: [id number] : 1975 42 From: Sage Tamez MD PCP: Jamarcus Lubin MD Status: REG SD Y Location: [place] [address] Problem List (1) Acute cholecystitis Status: Acute Report of Operation Date of Procedure: 08/26/18 Pre-Operative Diagnosis: Acute cholecystitis Post-Operative Diagnosis: Same Surgery/Procedure Performed:: Laparoscopic cholecystectomy Type of Anesthesia:: General Anesthesiologist: Kashif Peng Specimen's removed: Gallbladder Estimated Blood Loss (mL): < 25 cc Fluids Replaced: 1L LR Description of Procedure: Patient was brought in the operating room. Placed in the supine position. Under excellent general endotracheal the patient the abdomen was sterilely prepped draped in usual fashion. Local was injected infraumbilically. Dissection was carried down to the fascia. The fascia grasped with a [place]. Varies was placed inside the abdomen. The abdomen was insufflated to 15 torr. A 10/12 trocar was placed without difficulty. Patient was placed in the head up and rotated to the left position. Subxiphoid #5 trocar was placed inferior to this an alligator clamp was placed and laterally an alligator clamp was placed all these under direct visualization without injury to underlying structures. Fundus of the gallbladder was aspirated and then grasped with the alligator clamp and retracted in the cephalad direction I dissected out the cystic duct place hemoclips proximally distally and ligated the duct identified the cystic artery placed hemoclips proximally distally and ligated the artery deliver the gallbladder from the gallbladder bed with use of electrocautery. I placed it in specimen bag and delivered through the umbilical port without difficulty. Of note the gallbladder was edematous did not have any obvious stones but it clearly was inflamed and was most likely the source of her discomfort. I irrigated the right upper quadrant good hemostasis was noted. I removed the trochars under direct visualization good hemostasis was noted. I closed the fascia the umbilical port with a [id number] stitch of 0 Vicryl skin incisions were closed with septicum stitches of 4-0 Monocryl Steri-Strips are applied sterile dressings were applied and the patient tolerated the procedure well - Admit VTE Documentation VTE Present on Admission: No VTE Mechan Device Prophylaxis: SCD's VTE Pharm Prophylaxis ordered?: No Reason prophylaxis not ordered:: Treatment Not Indicated 08/26/18 2081 <Electronically signed by Sage Tamez MD> Date Sage Tamez MD CC: Sage Tamez MD; Jamarcus Lubin MD Signed EMERGENCY DEPARTMENT Observed: 08/26/2018 Status: F Source: [place] SUMMARY 3:32 PM [facility] REPOSITORY [facility] Medical Records Department [address] [place] [address] Emergency Department Summary 08/26/18 0735 MR#: [id number] Acct: [id number] Name: SOL LEWIS Rep #: [id number] : 1975 42 From: Manny Roberts MD PCP: Jamarcus Lubin MD Status: REG SDC - ER Visit Summary Date of Service: 08/26/18 Chief Complaint: Chest pain, back pain, nausea History of Present Illness: The patient is a 42 F presents to the emergency department with multiple complaints. Patient states she was in her normal state of health. She states that she woke about 3 in the morning. She had a stabbing pain in her left posterior shoulder. She states she just felt like she could not get comfortable. Over the next bit of time, the pain seemed to radiate into her upper abdomen. She was mildly nauseated. She states that she thought maybe it was just muscular, but despite moving, she cannot get comfortable. She denies shortness of breath. She has no history of coronary vascular disease. Her only prior surgical history is of a lumbar decompression and fusion. She states that she is never really had pain like this before. She has no history of pulmonary embolus. She denies any fevers. She denies any food intolerances. She states nothing is really helped the pain. It has been constant since about 3 this morning. Physical Examination: Vital signs reviewed General: Well-nourished, well-developed Head: Normocephalic, atraumatic Eyes: Pupils equal and reactive, extraocular muscles intact Neck, supple, no lymphadenopathy Heart: Regular rate and rhythm Respiratory: No distress, clear bilaterally Abdomen: Soft, tender in the midepigastric area without rebound or guarding, nondistended, no peritoneal signs Back: Nontender Extremities: Nontender, no edema, no cords Skin: Normal color no rash Neuro: Alert and oriented, no focal or lateralizing deficits Test Results: [] Emergency Department Course and Treatment: EKG was obtained on patient arrival. There is no acute ischemia. Axes and intervals are normal. Patient was given Tylenol and Zofran. She did have improvement of her pain. I started with plain films of the abdomen and chest. Her mediastinum was normal. There is no evidence of acute obstruction. I also obtained a right upper quadrant ultrasound. Her gallbladder shows no pericholecystic fluid, enlarged duct, or other dangerous process. With her persistent pain, I did obtain a CT of her abdomen and pelvis which was also normal. Her labs are unremarkable. The patient was still uncomfortable. I did discuss this with Dr. Tamez who evaluated the patient in the emergency department. HIDA scan was ordered. HIDA scan was completed and showed evidence of cholecystitis. Patient was covered with broad-spectrum antibiotics. She will be taken to surgery for cholecystectomy. Treatment Plan: [] Disposition: Admission Impression: Cholecystitis This note was generated with [employer] dictation software. It may contain incorrect words, spelling, and punctuation that were not noted in review of the chart prior to signing ED Disposition - Plan for ED Patient: Disposition: [facility] Chief Complaint: Chest Pain What to do if you have Problems For any increased pain, shortness of breath, bleeding, nausea or vomiting, chest pain, or any unexpected problems, contact your Primary Care Provider. Call [facility] ([phone]) or report to the closest Emergency Room. Call 911 if necessary. 08/26/18 1532 <Electronically signed by Manny Roberts MD> Date Manny Roberts MD Cosigner Signature (If Indicated): Date CC: Jamarcus Lubin MD GALLBLADDER Observed: 08/26/2018 Status: F Source: [place] 3:00 PM [facility] REPOSITORY Patient: SOL LEWIS : 1975 (42/F) Acct Num: [id number] Phys: Sage Tamez MD Unit Num: [id number] Loc: MS3 [id number] Specimen: [id number] Received: 08/27/18 - 1031 Spec Type: GALLBLADDE TISSUES 1 TISSUES: Gallbladder, NOS GROSS DESCRIPTION Received is one container labeled with the patient's name and designated gallbladder. The specimen consists of a gallbladder measuring 6.5 x 3.5 x 1.5 cm. The external surface is smooth and glistening. Focally, it is granular, hemorrhagic and contains cautery artifact. The lumen of the gallbladder contains green-yellow mucoid bile and no calculi. The mucosa is bile-stained and without any mass lesions. The gallbladder wall averages 0.1 cm in thickness and is free of mass lesions. Architectural Superintendent sections of the gallbladder and the cystic duct are submitted in one cassette. / AM:rolando 08/27/18 TC:3 CPT: 70052 HEADER OPERATION: Laparoscopic cholecystectomy PRE-OP DIAGNOSIS: Acute cholecystitis TISSUE SUBMITTED: Gallbladder MICROSCOPIC DESCRIPTION Slides are reviewed. MICROSCOPIC DIAGNOSIS Gallbladder: Chronic cholecystitis, No stones are identified in the container or in the gallbladder. SJ:rolando 08/30/18 Signed Tre Don 08/30/18 <signature on file> Performed By: #### PGALL #### [facility] [address] [place], [address] HISTORY AND PHYSICAL Observed: 08/26/2018 Status: F Source: [place] EXAM 1:05 PM [facility] REPOSITORY [facility] Medical Records Department [address] [place] [address] History and Physical 08/26/18 1301 MR#: [id number] Acct: [id number] Name: SOL LEWIS Rep #: [id number] : 1975 42 From: Sage Tamez MD PCP: Jamarcus Lubin MD Status: REG ER Y Location: ED Problem List (1) Acute cholecystitis Status: Acute History of Present Illness Date of Admission: 08/26/18 The patient is a 42 F presents to the emergency department with multiple complaints. Patient states she was in her normal state of health. She states that she woke about 3 in the morning. She had a stabbing pain in her left posterior shoulder. She states she just felt like she could not get comfortable. Over the next bit of time, the pain seemed to radiate into her upper abdomen. She was mildly nauseated. She states that she thought maybe it was just muscular, but despite moving, she cannot get comfortable. She denies shortness of breath. She has no history of coronary vascular disease. Her only prior surgical history is of a lumbar decompression and fusion. She states that she is never really had pain like this before. She has no history of pulmonary embolus. She denies any fevers. She denies any food intolerances. She states nothing is really helped the pain. It has been constant since about 3 this morning. While in the emergency department she had a gallbladder ultrasound as well as a CAT scan which did not reveal any obvious pathology. She subsequently underwent a HIDA scan with ejection fraction which showed nonvisualization of the gallbladder. This test also caused an extreme amount of discomfort for her. Past Medical History Allergies betamethasone [From Celestone] Allergy (Verified 08/26/18 07:30) Unknown betamethasone sodium phosphate [From Celestone] Allergy (Verified 08/26/18 07:30) Unknown codeine Allergy (Verified 08/26/18 07:30) Other Sulfa (Sulfonamide Antibiotics) Allergy (Verified 08/26/18 07:30) Other Home Medications: Ambulatory Orders Medication Instructions Recorded Hydrocodone/Acetaminophen [Vicodin 2 tablet PO QHS 10/02/14 5-300 mg Tablet] Amitriptyline HCl [Elavil] 10 mg PO QHS 08/26/18 Smoking Status: Never smoker - *Family History Paternal History Items: - - I removed her father's gallbladder Review of Systems Constitutional: Reports: Anorexia. Denies: Chills, Fever Cardiovascular: Reports: Chest Pain. Denies: Chest Pressure, Palpitations Respiratory: Denies: Cough, Hemoptysis, Shortness of breath at rest, Shortness of breath upon exertion, Wheezing Gastrointestinal: Reports: Abdominal Pain, Nausea. Denies: Diarrhea, Vomiting Genitourinary: Denies: Dysuria, Frequency, Hematuria, Urgency Musculoskeletal: Reports: Back Pain Skin: Denies: Lesions, Rash, Wounds VTE Information - Inpt Only VTE Present on Admission: No VTE Mechan Device Prophylaxis: SCD's VTE Pharm Prophylaxis ordered?: No Reason prophylaxis not ordered:: Treatment Not Indicated Patient Problems: Active and Suspected Problems Acute cholecystitis (Acute) - Physical Exam General: Alert, Oriented x3 Neck: Supple, No JVD Lungs: Clear to auscultation Cardiovascular: Regular rate, Regular Rhythm, No murmurs Abdomen: Bowel Sounds Present, Soft, Tender - This is mostly in the epigastric and right upper quadrant abdominal area to palpation. Extremities: No clubbing, No cyanosis, No edema, - - No signs of any rash on her trunk or torso. Skin: No rashes, No breakdown Vital Signs Temp Pulse Resp BP Pulse Ox 97.9 F 102 H 16 139/74 H 97 08/26/18 07:23 08/26/18 12:57 08/26/18 12:57 08/26/18 12:57 08/26/18 12:57 Oxygen Delivery Method Room Air Weight: 124 lb 12.506 oz Body Mass Index (BMI) 20.1 Laboratory Tests Past 24 Hrs WBC 6.5 RBC 4.76 Hgb 13.8 Hct 43.0 MCV 90.3 MCH 29.0 MCHC 32.1 RDW 12.7 RDW Differential 41.8 WBC RBC Hgb Hct MCV MCH MCHC RDW RDW Differential Assessment/Plan All Active Problems Acute cholecystitis (Acute) My plan is to perform a laparoscopic cholecystectomy. Risk benefits of the procedure were reviewed in great detail with the patient and the patient agrees to proceed. She had the optimal opportunity to ask questions all these questions were answered. She agrees to proceed. 08/26/18 1305 <Electronically signed by Sage Tamez MD> Date Sage Tamez MD Cosigner Signature: Date (if applicable) CC: Sage Tamez MD; Jamarcus Lubin MD Signed HEPATOBILLIARY IMG Observed: 08/26/2018 Status: F Source: [place] W/PHARM INT 9:59 AM [facility] REPOSITORY [facility] Imaging Services [address] [place] [address] Hepatobilliary Img w/Pharm Int MR#: [id number] Acct: [id number] Name: SOL LEWIS Rep #: [id number] : 1975 F 42 From: Adis Treadwell DO PCP: Jamarcus Lubin MD Status: REG ER Study: Hepatobilliary Img w/Pharm Int Date of Exam: 08/26/18 Exam# [id number] Ordering Dr: Manny Roberts MD CLINICAL: 42-year-old female with reported history of abdominal pain. RADIONUCLIDE HEPATOBILIARY SCINTIGRAPHY COMPARISON: CT of the abdomen-pelvis and abdominal ultrasound reports 08/26/2018 FINDINGS: Following the intravenous administration of 5.3 mCi of 99m Tc Mebrofenin, hepatobiliary images reveal: 1. Relatively prompt and homogeneous radiopharmaceutical concentration is noted by a normal sized liver. No parenchymal defects are identified. 2. Gallbladder activity is not identified during 120 minutes of sequential imaging. 3. Small intestinal tract is observed at 30 minutes post radiopharmaceutical administration. 4. Washout of the radiopharmaceutical by the hepatic parenchyma appears qualitatively normal. NM/Hepatobilliary Img w/Pharm Int IMPRESSION: 1. ABNORMAL 99m Tc Mebrofenin hepatobiliary imaging examination. A. Nonvisualization of the gallbladder at 120 minutes post radiopharmaceutical administration is consistent with a high probability of cholecystitis (acute or chronic) in patients with intermediate to high pretest probabilities of hepatobiliary disease and who have fasted for more than 4 and less than 24 hours. (Sean et al, Nucl Med Aida Taylor Press pg. 35, 1980). Electronically Signed: Adis Treadwell DO at 12:41 EST Tel , Service support , CC: Manny Roberts MD; Jamarcus Lubin MD Concrete Hopper Operator: Signed ABDOMEN/PELVIS W IV CONT Observed: 08/26/2018 Status: F Source: EARLINE ONLY 8:34 AM [facility] REPOSITORY [facility] Imaging Services [address] [place] [address] Abdomen/Pelvis W IV Cont ONLY MR#: [id number] Acct: [id number] Name: SOL LEWIS Rep #: [id number] : 1975 F 42 From: Abel Gillis MD PCP: Jamarcus Lubin MD Status: REG ER Study: Abdomen/Pelvis W IV Cont ONLY Date of Exam: 08/26/18 Exam# [id number] Ordering Dr: Manny Roberts MD STUDY: CT ABDOMEN AND PELVIS WITH CONTRAST REASON FOR EXAM: Female, 42 years old. Chest pain. Nausea. Uterine ablation. RADIATION DOSAGE (If Supplied By Facility): CTDIvol = ( 10.23 ) mGy, DLP = ( 338.98 ) mGycm TECHNIQUE: Transaxial images were obtained from the dome of the diaphragm to the symphysis pubis without oral contrast. 100CC ml of Isovue 300 contrast was administered. Sagittal and coronal images were reconstructed. Individualized dose optimization techniques were used for this CT. COMPARISON: None. FINDINGS: Calcified granuloma in the left central lung bases. The lung bases are otherwise normal. The visualized portions of the heart are within normal limits. Tiny nonenhancing hypodense cyst in the right hepatic lobe. The liver is otherwise normal. Normal gallbladder and extrahepatic biliary system. Normal spleen. Normal pancreas. Normal bilateral adrenal glands. Normal right kidney. Normal left kidney. Normal visualized stomach. Normal small intestine. Normal colon. The appendix is visualized and appears normal. Normal abdominal aorta. Normal inferior vena cava. Normal retroperitoneum. Normal urinary bladder. 1.6 cm rim-enhancing cyst in the right ovary. Heterogeneous hypodensities in the uterine fundus are suggestive of uterine fibroids. Normal abdominal wall. Disc implant inside the L5-S1 disc space. Midline metallic screw penetrating the S1 body. Threaded metallic screw traversing the right L5-S1 facet joint and the tip terminates in the right S1 body. Long threaded metallic screw entering the L5 spinous process and directed caudally to penetrate the left L5-S1 facet joint. No acute osseous abnormality. CT/Abdomen/Pelvis W IV Cont ONLY IMPRESSION: 1. Calcified granuloma in the left central lung base. 2. Tiny nonenhancing hypodense cyst in the right hepatic lobe. 3. 1.6 cm rim-enhancing cyst in the right ovary. 4. Heterogeneous hypodensities in the uterine fundus are suggestive of uterine fibroids. 5. Metallic disc implant inside the L5-S1 disc space and midline metallic screw penetrating the S1 body. 6. Threaded metallic screw traversing the right L5-S1 facet joint and the tip is inside the right S1 body. 7. Long threaded metallic screw entering caudally and penetrating the L5 spinous process and extending caudally to traverse the left L5-S1 facet joint. 8. No CT evidence of mass in the abdomen and pelvis. 9. No CT evidence of stones in the kidneys, ureters and bladder. Electronically Signed: Abel Gillis MD at 9:24 EST , Service support , CC: Manny Roberts MD; Jamarcus Lubin MD Concrete Hopper Operator: Signed CBC W/DIFF, AUTOMATED Collected: 08/26/2018 Status: F Source: [place] 7:47 AM [facility] REPOSITORY TYPE CODE TESTS RESULT OUT OF RANGE REFERENCE UNITS LAB L100.1000 4.4-11.0 K/mm3 Normal WBC 6.5 LAB L100.1200 4.2-5.4 M/mm3 Normal RBC 4.76 LAB L100.1300 12.0-15.0 g/dl Normal HGB 13.8 LAB L100.1400 37-47 % Normal HCT 43.0 LAB L100.1500 81-99 fL Normal MCV 90.3 LAB L100.1600 27.0-32.0 pg Normal MCH 29.0 LAB L100.1700 32-36 g/gl Normal MCHC 32.1 LAB L100.1810 11.6-14.6 % Normal RDW CV 12.7 LAB L100.1820 35.1-43.9 fl Normal RDW SD 41.8 LAB L100.1900 150-450 K/mm3 Normal PLT 199 LAB L100.2000 6.2-12.0 fl Normal MPV 10.2 LAB L100.2100 47-70 % Normal NEUT% 64.4 LAB L100.2200 19-41 % Normal LY% 25.5 LAB L100.2300 0-10 % Normal MONO% 8.4 LAB L100.2400 0-5 % Normal EO% 0.8 LAB L100.2500 0-1 % Normal BASO% 0.6 LAB L100.2550 0.0-0.9 % Normal IM GRAN % 0.300 Result Comment: IG% - Immature Granulocytes (promyelocytes, myelocytes and metamyelocytes) > 1% indicates that a LEFT SHIFT is Present. LAB L100.2620 2.0-7.7 X10 3/uL Normal Absolute Neut 4.2 LAB L100.2720 0.83-4.51 X10 3/ul Normal Absolute Lymph 1.66 Performed By: #### L100.0100 #### [facility] [address] [place], [address] BASIC METABOLIC Collected: 08/26/2018 Status: F Source: [place] PROFILE (BMP) 7:47 AM [facility] REPOSITORY TYPE CODE TESTS RESULT OUT OF RANGE REFERENCE UNITS LAB L501.0100 74-106 mg/dL Normal GLU 87 Result Comment: Please note revised GLUCOSE reference range effective 2017. LAB L501.1000 7-18 mg/dL Normal BUN 12 LAB L501.1100 0.55-1.02 mg/dL Normal CREAT,SERUM 0.73 Result Comment: The validity of the calculated GFR AND GFRAA in patients over 70 years has not been determined. Clinical correlation is essential. LAB L501.1110 >60 mL/min Normal EST GFR 92 Result Comment: Non- GFR Calc LAB L501.1115 >60 mL/min Normal EST GFR - AA 111 Result Comment: GFR Calc LAB L501.1255 ml/min Normal Estimated CRCL 89.70 LAB L501.1300 10-20 RATIO Normal BUN/CRE 16.3 LAB L501.2200 8.5-10 mg/dL Normal .1 CA 8.6 LAB L501.5300 136-14 mmol/L Normal 5 NA 140 LAB L501.5600 3.5-5. mmol/L Normal 1 K 3.8 LAB L501.5900 98-107 mmol/L High CL 108 LAB L501.6100 21.0-3 mmol/L Normal 2.0 CO2 25.0 LAB L501.6200 5-15 Normal GAP 7 Performed By: #### L500.2500, L500.3400, L501.2450, L501.4010 #### [facility] [address] [place], [place], [id number] LIVER PROFILE Collected: 08/26/2018 Status: F Source: [place] 7:47 AM [facility] REPOSITORY TYPE CODE TESTS RESULT OUT OF RANGE REFERENCE UNITS LAB L501.1500 6.4-8.2 g/dL Normal T PROT 7.5 LAB L501.1800 3.2-5.0 g/dL Normal ALB 3.8 LAB L501.1950 2.2-4.2 g/dL Normal GLOB 3.7 LAB L501.4100 15-37 U/L Normal AST 16 LAB L501.4305 45-117 U/L Normal ALK P 67 LAB L501.4405 13-56 U/L Normal ALT 21 LAB L501.4600 0.20-1.00 mg/dL Normal T BILI 0.50 LAB L501.4700 0.00-0.30 mg/dL Normal D BILI 0.12 Performed By: #### L500.2500, L500.3400, L501.2450, L501.4010 #### [facility] [address] [place], [place], [id number] LIPASE Collected: 08/26/2018 Status: F Source: [place] 7:47 AM [facility] REPOSITORY TYPE CODE TESTS RESULT OUT OF RANGE REFERENCE UNITS LAB L501.2450 73-393 U/L Normal LIPASE 144 Performed By: #### L500.2500, L500.3400, L501.2450, L501.4010 #### [facility] [address] [place], [place], [address] TROPONIN-I Collected: 08/26/2018 Status: F Source: [place] 7:47 AM [facility] REPOSITORY TYPE CODE TESTS RESULT OUT OF RANGE REFERENCE UNITS LAB L501.4010 <0.045 ng/mL Normal < 0.015 TROPONIN-I Result Comment: TROPONIN-I EXPECTED VALUES <0.045 Negative 0.045 - 0.590 Consistent with Cardiac Damage > OR = 0.600 Critical Value Not every elevated troponin is indicative of NC. These values should be used with clinical judgement in examining the patient's clinical picture for diagnosis. To establish a diagnosis of NC versus myocardial injury, there must be a demonstrated rise and/or fall in the troponin values, in addition to ischemic symptoms, EKG changes, new regional wall motion abnormality, and/or angiographical evidence. PLEASE NOTE: REFERENCE RANGES EDITED 18 Performed By: #### L500.2500, L500.3400, L501.2450, L501.4010 #### [facility] [address] [place] [place], [address] ,URINE Collected: 08/26/2018 Status: F Source: [place] 7:40 AM [facility] REPOSITORY Order Comment: Order Date: 08/26/18 TYPE CODE TESTS RESULT OUT OF REFERENCE UNITS RANGE LAB L400.8000 Negative Normal HCGUQUAL Negative Result Comment: Very dilute urine specimens, as indicated by a low specific gravity, may not contain territory representative levels of hCG. If is still suspected, a first morning urine specimen should be collected 48 hours later and tested. Performed By: #### L400.7600 #### [facility] [address] [facility] [place], [place], [address] URINALYSIS, COMPLETE Collected: 08/26/2018 Status: F Source: [place] 7:40 AM [facility] REPOSITORY Order Comment: Order Date: 08/26/18 How was Urine Obtained? CLEAN CATCH TYPE CODE TESTS RESULT OUT OF RANGE REFERENCE UNITS LAB L400.3000 Yellow COLOR Normal Yellow LAB L400.3050 Clear Normal CLARITY Cloudy LAB L400.3200 Normal mg/dl Normal GLUCOSE, UR Normal LAB L400.3300 Negative mg/dL Normal BILIRUBIN URINE Negative LAB L400.3400 Negative mg/dl High 5 KETONE UR LAB L400.3465 1.002-1.030 Normal SP.GR. DIPSTX 1.015 LAB L400.3550 5.0 - 8.0 pH UR Normal 7.0 LAB L400.3600 Negative mg/dl PROT Normal DIPSTX Negative LAB L400.3700 Normal mg/dl Normal UROBILI Normal LAB L400.3750 Negative Normal NITRITE UR Negative LAB L400.3780 Negative /ul Normal OCCULT BLOOD-UR Negative LAB L400.3800 Negative /ul High LEUK 25 ESTERASE LAB L400.4050 0-5 /hpf WBC Normal 0-5 SEEN LAB L400.4100 0-5 /hpf 0 Normal RBC-UA SEEN LAB L400.4150 5-10 /hpf SQUAM Normal EPI 0-5 SEEN LAB L400.4300 None Seen /hpf 3+ Normal BACTERIA LAB L400.4350 <or=2+ /hpf 0 Normal MUCUS, URINE SEEN Performed By: #### L400.0001 #### [facility] [address] [facility] [place], [address] ACUTE ABDOMEN INC Observed: 08/26/2018 Status: F Source: [place] CHEST 7:32 AM [facility] REPOSITORY [facility] Imaging Services [address] [place] [address] Acute Abdomen Inc Chest MR#: [id number] Acct: [id number] Name: SOL ELWIS Rep #: [id number] : 1975 F 42 From: Abel Gillis MD PCP: Jamarcus Lubin MD Status: REG ER Study: Acute Abdomen Inc Chest Date of Exam: 08/26/18 Exam# [id number] Ordering Dr: Manny Roberts MD STUDY: X-RAY - ACUTE ABDOMINAL SERIES REASON FOR EXAM: Female, 42 years old. Chest pain and abdominal pain this morning. Right-sided tenderness. Bloating yesterday. TECHNIQUE: Single view of the chest. Supine, and upright view(s) of the abdomen were obtained. COMPARISON: None. FINDINGS: Mild pulmonary hyperinflation. The lungs are clear. Normal size heart. Normal mediastinum and waqar. Normal visualized pulmonary arteries. Normal visualized aortic arch and descending thoracic aorta. There is a non-specific bowel gas pattern. The soft tissue structures of the abdomen and pelvis are unremarkable. Threaded metallic screws at L5-S1. Midline S1 screw. Postsurgical absence of the L5 spinous process and lamina. No acute osseous abnormality. RAD/Acute Abdomen Inc Chest IMPRESSION: 1. Mild pulmonary hyperinflation. Deeper inspiratory effort versus mild COPD. 2. No acute cardiopulmonary pathology. 3. Normal abdominal radiographs. Electronically Signed: Abel Gillis MD at 8:46 EST , Service support , CC: Manny Roberts MD; Jamarcus Lubin MD Concrete Hopper Operator: Signed GALLBLADDER Observed: 08/26/2018 Status: F Source: EARLINE 7:32 AM [facility] REPOSITORY [facility] Imaging Services [address] [place] [address] Gallbladder MR#: [id number] Acct: [id number] Name: SOL LEWIS Rep #: [id number] : 1975 F 42 From: Abel Gillis MD PCP: Jamarcus Lubin MD Status: REG ER Study: Gallbladder Date of Exam: 08/26/18 Exam# [id number] Ordering Dr: Manny Roberts MD STUDY: ABDOMINAL ULTRASOUND - RIGHT UPPER QUADRANT REASON FOR VISIT: Female, 42 years old. Right upper quadrant pain. Cholelithiasis. TECHNIQUE: Ultrasound evaluation of the right upper quadrant was performed with real-time and static sexton-scale imaging. TECHNICAL QUALITY: Adequate. COMPARISON: None. FINDINGS: Liver: The liver measures 12.1 cm. There is normal echogenicity of the liver. The bile ducts are within normal limits. There is hepatic color flow. The direction of portal flow is hepatopetal. There is no demonstrated mass lesion. Gallbladder: Normal distended gallbladder. The gallbladder wall measures 3 mm. There is a negative sonographic Barahona's sign. There is no pericholecystic fluid. There are no gallstones. Common Bile Duct (C.B.D.): The common bile duct measures 4 mm. Pancreas: Normal size of the head, body and tail of the pancreas. There is normal echogenicity of the pancreas. There is no demonstrated pancreatic mass or cyst. The pancreatic duct is not dilated. Right Kidney: Normal size of the right kidney. The right kidney measures 12.0 x 4.6 x 4.5 cm. Normal renal cortex. The right cortex measures 1.4 cm. Small right extrarenal pelvis. There is no demonstrated renal mass or cyst. There is no right hydronephrosis. US/Gallbladder IMPRESSION: Normal right upper quadrant ultrasound examination. Electronically Signed: Abel Gillis MD at 8:50 EST , Service support , CC: Manny Roberts MD; Jamarcus Lubin MD Concrete Hopper Operator: Signed PROGRESS Observed: 08/02/2018 Status: COMPLETED Source: [place] 2:56 PM [facility] REPOSITORY HNO ID: [id number] Author: Stacia Amaya Psr Service: (none) Author Type: (none) Type: Progress Notes Filed: 08/02/2018 2:56 PM Note Text: Pap logged and normal pap letter mailed to patient. Stacia Amaya Psr PROGRESS Observed: 07/23/2018 Status: COMPLETED Source: [place] 10:36 AM [facility] REPOSITORY HNO ID: [id number] Author: Judith Suarez Service: (none) Author Type: Nurse Practitioner Type: Progress Notes Filed: 07/23/2018 11:00 AM Note Text: Sol Lewis is a 42 year old who presents for her annual gynecologic exam without complaints. Menses: cycles every 25-30 days and 3-5 days of flow. Contraception: none HPV vaccine: N/A Last Pap: 2012 normal HPV: negative History of abnormal pap: No Last mammogram: 2016normal Sexually active: Yes Vaginal dryness: No Obstetric History T0 L1 SAB0 TAB0 Ectopic0 Multiple0 Live Births0 Comment: 1 vaginal delivery PAST MEDICAL HISTORY Diagnosis Date - Basal cell carcinoma 2011, 2016 multiple sites - High blood pressure - PMH - PAST MEDICAL HISTORY OF irritable bowel syndrome - PMH - PAST MEDICAL HISTORY OF back pain - PMH - PAST MEDICAL HISTORY OF Injections L4-L5 by Dr Knox in [place] PAST SURGICAL HISTORY Procedure Laterality Date - MOHS, 1 STAGE, TRUNK/ARM/LEG multiple BCC - PAST SURGICAL HISTORY OF 02/2003 x2 discectomy L4-5 S1 - PAST SURGICAL HISTORY OF DANDC - PAST SURGICAL HISTORY OF 07/11/2004 L5-S1 anterior lumbar interbody fusion with posterior L5- S1 translaminar facet screw on left side and a facet joint screw on the right side, and this would be a 360-degree fusion - PAST SURGICAL HISTORY OF 1999 lasix eye surgery - PAST SURGICAL HISTORY OF 2003 wisdom teeth - S THERMACHOICE UTERINE BALLOON 01/02/15 Hysteroscopy w/ endometrial ablation FAMILY HISTORY Problem Relation Age of Onset - Lipids Mother - Headache Mother - Ischemic Heart Disease Maternal Grandmother - Skin Cancer Maternal Grandmother 60 - Ischemic Heart Disease Maternal Grandfather - other (Melanoma [Other]) Maternal Grandfather 81 - Hypertension Paternal Grandmother all grandparents - Breast Cancer Paternal Grandmother 66 - Breast Cancer Paternal Aunt 45 bilateral - Colon Cancer Paternal Aunt 55 - other (Kidney Cancer [Other]) Paternal Aunt 55 - Breast Cancer Paternal Aunt 40s - Breast Cancer Maternal Aunt 50s SOCIAL HISTORY Social History Substance Use Topics - Smoking status: Never Smoker - Smokeless tobacco: Never Used - Alcohol use No REVIEW OF SYSTEMS Abdomen: No abdominal pain, nausea, vomiting, diarrhea, or constipation. No bloating, early satiety, indigestion, or increased flatulence. Bladder: No dysuria, gross hematuria, urinary frequency, urinary urgency, or incontinence. Breast: No breast lumps, nipple d/c, overlying skin changes, redness or skin retraction. Allergies and current medication updated:Yes EXAM: BP 92/66 Ht 5' 6 (1.68m) Wt 122 lb (55.3kg) LMP 07/09/2018 BMI 19.70 kg/(m2). GENERAL: pleasant, female in no apparent distress HEENT: Normocephalic, atraumatic, mucus membranes moist and no lesions NECK: Supple, full range of motion, no adenopathy and thyroid normal DERMATOLOGY: Normal, without lesions, non-icteric and non-hirsute BREAST: soft, non-tender, symmetric, no dominant mass, normal nipple-areolar complex, no lymphadenopathy and no nipple discharge CHEST: Normal inspiratory effort ABDOMEN: soft, non-tender and no masses PELVIC: external genitalia normal, normal Bartholin's glands, urethra, Kobuk's glands, no vulvar lesions, no cervical lesions, good vaginal support, physiologic discharge present, normal appearing perineal body and perianal region, well estrogenized BIMANUAL: uterus normal size, shape and consistency, no adnexal masses, non-tender and no cervical motion tenderness RECTOVAGINAL: deferred. NEURO: alert and oriented x3,exam grossly non-focal EXTREMITIES: normal ASSESSMENT/PLAN: 1) Health maintenance: Pap done with HPV. Mammogram ordered. Nutrition, exercise and routine health maintenance exams reviewed. Calcium/Vitamin D supplementation information provided. 2) Contraception: none. Contraceptive options reviewed and information provided. 3) STD screening: Declined STD check. 4) Follow up one year or sooner as needed Judith Suarez APRN.LEAD MECHANICAL ENGINEER HPV W/GENOTYPE Collected: 07/23/2018 Status: F Source: [place] 10:22 [facility] REPOSITORY TYPE CODE TESTS RESULT OUT OF REFERENCE UNITS RANGE LAB HPVT16 HPV HighRisk Negative for Type 16 HPV DNA high risk type 16 by PCR. LAB HPVT18 HPV HighRisk Negative for Type 18 HPV DNA high risk type 18 by PCR. LAB HPVHRO HPV HighRisk Negative for Other HPV DNA high risk types: 31,33,35,39,45 ,51,52,56,58,5 9,66,68 by PCR. Result Comment: This test was developed and its performance characteristics determined by [facility]'s Brice Pryor [facility] Pathology and Laboratory Medicine [place] ([facility]). It has not been cleared or approved by the FDA. [facility] is regulated under CLIA as qualified to perform high-complexity testing. This test is used for clinical purposes. It should not be regarded as inv estigational or for research. Performed By: #### HPVHRR #### [facility] [address] [place], [place] [address] CYTOLOGY Observed: 07/23/2018 Status: C Source: [place] 10:22 [facility] REPOSITORY ADDITIONAL PROCEDURES PRESENT Specimen originated from [facility] Specimen #: [id number] Submitting Physician: JUDITH SUAREZ SPECIMEN SUBMITTED A: CERVICAL, SCREENING, FLUID FINAL DIAGNOSIS A. CERVICAL, SCREENING, FLUID Satisfactory for interpretation. Negative for intraepithelial lesion or malignancy. This specimen has been analyzed by the ThinPrep Imaging System, an automated imaging and review system, which assists the laboratory in evaluating cells on ThinPrep Pap tests. Following automated imaging, selected dutton from every slide are reviewed by a pharmacognosist. GAUTAM De La Cruz(ASCP) (Electronic Signature) ADDITIONAL PROCEDURE(S) HUMAN PAPILLOMA VIRUS Date Ordered: 07/26/2018 Date Reported: 07/27/2018 Procedure Results and Interpretation Negative for HPV DNA high risk type 16 by PCR. Negative for HPV DNA high risk type 18 by PCR. Negative for HPV DNA high risk types: 31,33,35,39,45,51,52,56,58,59,66,68 by PCR. This test was developed and its performance characteristics determined by [facility]'s Brice Pryor [facility]ology and Laboratory Medicine [place] ([facility]). It has not been cleared or approved by the FDA. [facility] is regulated under CLIA as qualified to perform high-complexity testing. This test is used for clinical purposes. It should not be regarded as investigational or for research. CLINICAL DATA ROUTINE EXAM, HPV Testing: Yes, automatic HPV patients over 30 Date of Last Menstrual Period: 07/09/2018 STAINS A: CERVICAL, SCREENING, FLUID THIN PREP PHARMACEUTICAL SALESPERSON Nguyen Moe M.D., Comb Setter Date of Report: 07/30/2018 Date of Procedure: 07/23/2018 Date of Receipt: 07/26/2018 Submitted by: JUDITH SUAREZ Location: [facility] Diagnostic interpretation performed at [facility], [address] [place] [address]. The Pap Smear is a screening test for cervical cancer. False negative results occur with all screening tests, emphasizing the need for rescreening at recommended intervals, and clinical correlation. CNOV Observed: 07/23/2018 Status: COMPLETED Source: [place] 10:15 AM [facility] REPOSITORY Office Visit (WOOB) SOL LEWIS ([id number]) 1975 F Date Time Provider Department 07/23/18 10:15 AM JUDITH SUAREZ (LEAD MECHANICAL ENGINEER) [place]OO[place] During your visit today, we recorded the following information about you: Blood pressure Weight Height 92/66 55.3 kg 1.676 m Judith Suarez APRN.CNP 07/23/2018 11:00 AM Signed Sol Gay CollazoDebbie is a 42 year old who presents for her annual gynecologic exam without complaints. Menses: cycles every 25-30 days and 3-5 days of flow. Contraception: none HPV vaccine: N/A Last Pap: 2012 normal HPV: negative History of abnormal pap: No Last mammogram: 2016normal Sexually active: Yes Vaginal dryness: No Obstetric History T0 L1 SAB0 TAB0 Ectopic0 Multiple0 Live Births0 Comment: 1 vaginal delivery PAST MEDICAL HISTORY Diagnosis Date - Basal cell carcinoma 2011, 2015 multiple sites - High blood pressure - PMH - PAST MEDICAL HISTORY OF irritable bowel syndrome - PMH - PAST MEDICAL HISTORY OF back pain - PMH - PAST MEDICAL HISTORY OF Injections L4-L5 by Dr Knox in [place] PAST SURGICAL HISTORY Procedure Laterality Date - MOHS, 1 STAGE, TRUNK/ARM/LEG multiple BCC - PAST SURGICAL HISTORY OF 02/2003 x2 discectomy L4-5 S1 - PAST SURGICAL HISTORY OF DANDC - PAST SURGICAL HISTORY OF 07/11/2004 L5-S1 anterior lumbar interbody fusion with posterior L5- S1 translaminar facet screw on left side and a facet joint screw on the right side, and this would be a 360-degree fusion - PAST SURGICAL HISTORY OF 1999 lasix eye surgery - PAST SURGICAL HISTORY OF 2003 wisdom teeth - S THERMACHOICE UTERINE BALLOON 01/02/15 Hysteroscopy w/ endometrial ablation FAMILY HISTORY Problem Relation Age of Onset - Lipids Mother - Headache Mother - Ischemic Heart Disease Maternal Grandmother - Skin Cancer Maternal Grandmother 60 - Ischemic Heart Disease Maternal Grandfather - other (Melanoma [Other]) Maternal Grandfather 81 - Hypertension Paternal Grandmother all grandparents - Breast Cancer Paternal Grandmother 66 - Breast Cancer Paternal Aunt 45 bilateral - Colon Cancer Paternal Aunt 55 - other (Kidney Cancer [Other]) Paternal Aunt 55 - Breast Cancer Paternal Aunt 40s - Breast Cancer Maternal Aunt 50s SOCIAL HISTORY Social History Substance Use Topics - Smoking status: Never Smoker - Smokeless tobacco: Never Used - Alcohol use No REVIEW OF SYSTEMS Abdomen: No abdominal pain, nausea, vomiting, diarrhea, or constipation. No bloating, early satiety, indigestion, or increased flatulence. Bladder: No dysuria, gross hematuria, urinary frequency, urinary urgency, or incontinence. Breast: No breast lumps, nipple d/c, overlying skin changes, redness or skin retraction. Allergies and current medication updated:Yes EXAM: BP 92/66 Ht 5' 6 (1.68m) Wt 122 lb (55.3kg) LMP 07/09/2018 BMI 19.70 kg/(m2). GENERAL: pleasant, female in no apparent distress HEENT: Normocephalic, atraumatic, mucus membranes moist and no lesions NECK: Supple, full range of motion, no adenopathy and thyroid normal DERMATOLOGY: Normal, without lesions, non-icteric and non-hirsute BREAST: soft, non-tender, symmetric, no dominant mass, normal nipple-areolar complex, no lymphadenopathy and no nipple discharge CHEST: Normal inspiratory effort ABDOMEN: soft, non-tender and no masses PELVIC: external genitalia normal, normal Bartholin's glands, urethra, Kob[place]'s glands, no vulvar lesions, no cervical lesions, good vaginal support, physiologic discharge present, normal appearing perineal body and perianal region, well estrogenized BIMANUAL: uterus normal size, shape and consistency, no adnexal masses, non-tender and no cervical motion tenderness RECTOVAGINAL: deferred. NEURO: alert and oriented x3,exam grossly non-focal EXTREMITIES: normal ASSESSMENT/PLAN: 1) Health maintenance: Pap done with HPV. Mammogram ordered. Nutrition, exercise and routine health maintenance exams reviewed. Calcium/Vitamin D supplementation information provided. 2) Contraception: none. Contraceptive options reviewed and information provided. 3) STD screening: Declined STD check. 4) Follow up one year or sooner as needed Judith Suarez APRN.BOONE Amaya Psr 08/02/2018 2:56 PM Signed Pap logged and normal pap letter mailed to patient. Stacia Amaya Psr Referring Provider: SELF [200] Allergies As of Date: 07/23/2018 Noted Allergy Reaction CELESTONE (BETAMETHASONE SODIUM P*12/19/2010 14 - Other: See Comments Comments: Cheeks and neck red and hot- felt like she had a fever in top 1/2 of body, other steroids have been ok CODEINE 07/01/2004 Comments: GI UPSET, HEART RACES NEURONTIN (GABAPENTIN) 02/09/2014 14 - Other: See Comments Comments: Extreme dizziness SULFA (SULFONAMIDE ANTIBIOTICS) 07/01/2004 Comments: UNKNOWN Date Reviewed: 07/23/2018 Reviewed by: Judith Suarez - Fully Assessed Reason for Visit: Yearly Exam [187] Primary Visit Diagnosis:Encounter for gynecological examination without abnormal finding [Z01.419] Other Visit Diagnoses:Screening for malignant neoplasm of cervix [Z12.4] Special screening examination for human papillomavirus (HPV) [Z11.51] Encounter for screening mammogram for malignant neoplasm of breast [Z12.31] Order(s):PAP FLUID CERVICAL SCREENING [[id number]] Order #: [id number]. #:[id number] SKY SCREENING [[id number]] Order #: [id number] FUTURE HPV W/GENOTYPE [SQHPVHRR] Order #: [id number]. #:[id number] Prescriptions as of 07/23/2018 Sig: HYDROCODONE 5 MG-ACETAMINOPHE* Take 1 tablet by mouth every * AMITRIPTYLINE 10 MG TABLET Take 1 tablet by mouth daily * SUMATRIPTAN 100 MG TABLET Take 1 tablet by mouth as nee* KETOCONAZOLE 2 % SHAMPOO Apply 1 application to affect* SENNOSIDES 8.6 MG TABLET as needed for constipation COMPOUNDED PRESCRIPTION Mammogram: screening Problem List As Of Date 07/23/2018 Noted Resolved Headache [R51] INVALID FOR*11/07/2009 Postlaminectomy syndrome [M96.1] INVALID FOR* More... Chronic low back pain [M54.5, G89.29] INVALID FOR*04/09/2015 Visit for wound check [Z51.89] INVALID FOR*06/25/2012 Basal cell carcinoma [C44.91] INVALID FOR* Dysmenorrhea [N94.6] INVALID FOR* Menorrhagia [N92.0] INVALID FOR* Migraine [G43.909] INVALID FOR* Disposition: Return in about 1 year (around 07/23/2019) for Routine PHARMACEUTICAL SALESPERSON exam. Follow-up and Disposition History Recorded Letter Text Judith Suarez CNP [facility] [address] [place], [place] [address] Sol Lewis [address] [facility] [address] 08/02/2018 [facility]: [id number] Dear Sol, We are pleased to inform you that your recent Pap Test was within normal limits. Because Pap tests are so effective in the early detection of cervical cancer, you are encouraged to continue having the test at regular intervals. You will be due for a 1 year Gynecological Exam after this date 07/23/2019. If you have any questions regarding the above information, do not hesitate to call our office at between the hours of 8:00 a.m. and 5:00 p.m. Sincerely, Judith Suarez CNP Encounter Status:Closed by JUDITH SUAREZ on 07/23/18 PROGRESS Observed: 07/22/2018 Status: COMPLETED Source: [place] 10:49 AM [facility] RE[facility] HNO ID: [id number] Author: John Falk (Hortensia) [place] Service: (none) Author Type: Physician Assistant Reading Teacher Type: Progress Notes Filed: 07/22/2018 2:31 PM Note Text: 42 year old female with c/o 1. Post-laminectomy syndrome: no change with persistent back pain. Uses [place]. 2. Migraines: 4 days on 3-4 days off. Using oral Imitrex which seems to help. 24h rebound headache. Taking Tylenol or Advil at least 4 times in a week. Currently 5/10 at worst 9/10. Vertex head bilaterally with some into temples or behind eyes. Nausea, rare vomiting. Rare visual aura. She does acknowledge waking up clenching. HISTORIES FAMILY HISTORY Problem Relation Age of Onset - Lipids Mother - Headache Mother - Ischemic Heart Disease Maternal Grandmother - Skin Cancer Maternal Grandmother 60 - Ischemic Heart Disease Maternal Grandfather - other (Melanoma [Other]) Maternal Grandfather 81 - Hypertension Paternal Grandmother all grandparents - Breast Cancer Paternal Grandmother 66 - Breast Cancer Paternal Aunt 45 bilateral - Colon Cancer Paternal Aunt 55 - other (Kidney Cancer [Other]) Paternal Aunt 55 - Breast Cancer Paternal Aunt 40s - Breast Cancer Maternal Aunt 50s PAST MEDICAL HISTORY Diagnosis Date - Basal cell carcinoma 2011, 2015 multiple sites - High blood pressure - PMH - PAST MEDICAL HISTORY OF irritable bowel syndrome - PMH - PAST MEDICAL HISTORY OF back pain - PMH - PAST MEDICAL HISTORY OF Injections L4-L5 by Dr Knox in [place] PAST SURGICAL HISTORY Procedure Laterality Date - MOHS, 1 STAGE, TRUNK/ARM/LEG multiple BCC - PAST SURGICAL HISTORY OF 02/2003 x2 discectomy L4-5 S1 - PAST SURGICAL HISTORY OF DANDC - PAST SURGICAL HISTORY OF 07/11/2004 L5-S1 anterior lumbar interbody fusion with posterior L5- S1 translaminar facet screw on left side and a facet joint screw on the right side, and this would be a 360-degree fusion - PAST SURGICAL HISTORY OF 1999 lasix eye surgery - PAST SURGICAL HISTORY OF 2003 wisdom teeth - S THERMACHOICE UTERINE BALLOON 01/02/15 Hysteroscopy w/ endometrial ablation Social History Marital status: Single Spouse name: Brice Years of education: Number of children: 1 Occupational History 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 Disp: 9 tablet Rfl: 3 ketoconazole 2 % shampoo Apply 1 application to affected area once daily as needed. To affected area on body Disp: 464 mL Rfl: 6 SENNOSIDES 8.6 MG TAB as needed for constipation Disp: Rfl: 0 COMPOUNDED PRESCRIPTION Mammogram: screening Disp: 1 Each Rfl: 0 No current facility-administered medications for this visit. MAMMOGRAM due on 04/16/2017 PAP EVERY 5 YEARS due on 11/29/2017 HPV EVERY 5 YEARS due on 11/29/2017 INFLUENZA(1) due on 05/22/2018 EXAM: BP 120/80 Pulse 80 Temp 36.6 ?C (97.8 ?F) (Tympanic) Resp 20 Wt 56.2 kg (124 lb) LMP 07/09/2018 BMI 20.63 kg/m? Pleasant adult woman in no acute distress. Alert and oriented all spheres. Normal affect and cognition. Speech normal. No deficits to learning or comprehension. Skin warm, dry, pink to lips and nailbeds. Normal turgor. Respirations regular and unlabored. HEENT WNL. TM's clear. Nose and oropharynx free from injection or lesion. No cervical lymph nodes. Thyroid non-tender, no masses Bilateral tenderness in TMJ trigger points, also anterior and posterior scalenes. Tender also in the occipitalis muscles on the right. Extrem: no clubbing, cyanosis, edema. Extremities are warm and pink with prompt capillary refill. OMT: Myofascial release to tender trigger points in TMJ and cervical with marked improvement in headache. ASSESSMENT/PLAN: 1. Other migraine without status migrainosus, not intractable - ICD9: 346.80, ICD10: G43.809 (primary diagnosis) Discussed possibility of TMJ syndrome. Reviewed TMJ precautions and measures including bite block, orthodontic referral. Myofascial techniques demonstrated for patient. Trial of amitriptyline 10 mg daily at bedtime. If tolerates over a week increase to 20 mg. Monitor headache improvement. We did discuss referral headache center. May consider trial of beta rhea if she can't tolerate amitriptyline prior to referral. 2. DDD (degenerative disc disease), lumbar - ICD9: 722.52, ICD10: M51.36 No signs of diversion - HYDROCODONE 5 MG-ACETAMINOPHEN 325 MG TABLET f/u prn John Pfeiffer PA-C CNOV Observed: 07/22/2018 Status: COMPLETED Source: [place] 10:00 AM [facility] REPOSITORY Office Visit (FAMPWS) SOL LEWIS ([id number]) 1975 F Date Time Provider Department 07/22/18 10:00 AM [facility] your visit today, we recorded the following information about you: Temperature Pulse Respiration Blood pressure 97.8 degrees 80/minute 20/minute 120/80 Weight Last Period 56.2 kg 07/09/18 John Pfeiffer PA-C 07/22/2018 2:31 PM Signed 42 year old female with c/o 1. Post-laminectomy syndrome: no change with persistent back pain. Uses [place]. 2. Migraines: 4 days on 3-4 days off. Using oral Imitrex which seems to help. 24h rebound headache. Taking Tylenol or Advil at least 4 times in a week. Currently 5/10 at worst 9/10. Vertex head bilaterally with some into temples or behind eyes. Nausea, rare vomiting. Rare visual aura. She does acknowledge waking up clenching. HISTORIES FAMILY HISTORY Problem Relation Age of Onset - Lipids Mother - Headache Mother - Ischemic Heart Disease Maternal Grandmother - Skin Cancer Maternal Grandmother 60 - Ischemic Heart Disease Maternal Grandfather - other (Melanoma [Other]) Maternal Grandfather 81 - Hypertension Paternal Grandmother all grandparents - Breast Cancer Paternal Grandmother 66 - Breast Cancer Paternal Aunt 45 bilateral - Colon Cancer Paternal Aunt 55 - other (Kidney Cancer [Other]) Paternal Aunt 55 - Breast Cancer Paternal Aunt 40s - Breast Cancer Maternal Aunt 50s PAST MEDICAL HISTORY Diagnosis Date - Basal cell carcinoma 2011, 2015 multiple sites - High blood pressure - PMH - PAST MEDICAL HISTORY OF irritable bowel syndrome - PMH - PAST MEDICAL HISTORY OF back pain - PMH - PAST MEDICAL HISTORY OF Injections L4-L5 by Dr Knox in [place] PAST SURGICAL HISTORY Procedure Laterality Date - MOHS, 1 STAGE, TRUNK/ARM/LEG multiple BCC - PAST SURGICAL HISTORY OF 02/2003 x2 discectomy L4-5 S1 - PAST SURGICAL HISTORY OF DANDC - PAST SURGICAL HISTORY OF 07/11/2004 L5-S1 anterior lumbar interbody fusion with posterior L5- S1 translaminar facet screw on left side and a facet joint screw on the right side, and this would be a 360-degree fusion - PAST SURGICAL HISTORY OF 1999 lasix eye surgery - PAST SURGICAL HISTORY OF 2003 wisdom teeth - S THERMACHOICE UTERINE BALLOON 01/02/15 Hysteroscopy w/ endometrial ablation Social History Marital status: Single Spouse name: Brice Years of education: Number of children: 1 Occupational History 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 Disp: 9 tablet Rfl: 3 ketoconazole 2 % shampoo Apply 1 application to affected area once daily as needed. To affected area on body Disp: 464 mL Rfl: 6 SENNOSIDES 8.6 MG TAB as needed for constipation Disp: Rfl: 0 COMPOUNDED PRESCRIPTION Mammogram: screening Disp: 1 Each Rfl: 0 No current facility-administered medications for this visit. MAMMOGRAM due on 04/16/2017 PAP EVERY 5 YEARS due on 11/29/2017 HPV EVERY 5 YEARS due on 11/29/2017 INFLUENZA(1) due on 05/22/2018 EXAM: BP 120/80 Pulse 80 Temp 36.6 ?C (97.8 ?F) (Tympanic) Resp 20 Wt 56.2 kg (124 lb) LMP 07/09/2018 BMI 20.63 kg/m? Pleasant adult woman in no acute distress. Alert and oriented all spheres. Normal affect and cognition. Speech normal. No deficits to learning or comprehension. Skin warm, dry, pink to lips and nailbeds. Normal turgor. Respirations regular and unlabored. HEENT WNL. TM's clear. Nose and oropharynx free from injection or lesion. No cervical lymph nodes. Thyroid non-tender, no masses Bilateral tenderness in TMJ trigger points, also anterior and posterior scalenes. Tender also in the occipitalis muscles on the right. Extrem: no clubbing, cyanosis, edema. Extremities are warm and pink with prompt capillary refill. OMT: Myofascial release to tender trigger points in TMJ and cervical with marked improvement in headache. ASSESSMENT/PLAN: 1. Other migraine without status migrainosus, not intractable - ICD9: 346.80, ICD10: G43.809 (primary diagnosis) Discussed possibility of TMJ syndrome. Reviewed TMJ precautions and measures including bite block, orthodontic referral. Myofascial techniques demonstrated for patient. Trial of amitriptyline 10 mg daily at bedtime. If tolerates over a week increase to 20 mg. Monitor headache improvement. We did discuss referral headache center. May consider trial of beta rhea if she can't tolerate amitriptyline prior to referral. 2. DDD (degenerative disc disease), lumbar - ICD9: 722.52, ICD10: M51.36 No signs of diversion - HYDROCODONE 5 MG-ACETAMINOPHEN 325 MG TABLET f/u prn HORTENSIA Byrd PA-C 07/22/2018 11:11 AM Signed Try to let your jaw relax. Make a conscious effort not to clench or grind. Avoid any excessive chewing. Use soft foods, ground meat, and avoid gum, candy, soft breads, or anything that makes you use you jaw. Trigger point massage over the muscle knots palpable at the angle of your jaw may help. After a few minutes of steady pressure or circling motion, the muscles will relax, and the knot will go away. You might try taking the palms over your hands, pressing in firmly over the jaw, and slowing sliding your hands down the sides of your face, opening and pulling your jaw downward. Moist heat for 10-20min may also help relax the muscles. You may use over the counter analgesics such as Tylenol, Advil or Aleve. If you clench or grind at night, seeing an field traffic investigator or oral surgeon might be helpful to make a bite plate to keep you from being able to completely close your mouth. In the meantime, for about $20 you can purchase a moldable Doctor's Knowledge Management Consultant over the counter at most [employer] or [employer]. Behavioral therapy can also help to retrain the habits of clenching or grinding. See information on amitriptyline If not effective consider inderal. Referring Provider: JAMARCUS LUBIN [[id number]] Allergies As of Date: 07/22/2018 Noted Allergy Reaction CELESTONE (BETAMETHASONE SODIUM P*12/19/2010 14 - Other: See Comments Comments: Cheeks and neck red and hot- felt like she had a fever in top 1/2 of body, other steroids have been ok CODEINE 07/01/2004 Comments: GI UPSET, HEART RACES NEURONTIN (GABAPENTIN) 02/09/2014 14 - Other: See Comments Comments: Extreme dizziness SULFA (SULFONAMIDE ANTIBIOTICS) 07/01/2004 Comments: UNKNOWN Date Reviewed: 07/22/2018 Reviewed by: Mojgan Cutler LPN - Fully Assessed Reason for Visit: F/U 3 Month [443] Cmt: need medication refill Reason For Visit History Recorded Primary Visit Diagnosis:Other migraine without status migrainosus, not intractable [G43.809] Other Visit Diagnosis:DDD (degenerative disc disease), lumbar [M51.36] Order(s):HYDROcodone-acetaminophen (NORCO) 5-325 mg per tabletTake 1 tablet by mouth every 6 hours as needed for up to 31 days. Earliest Fill Date: 07/22/18Disp: 60 tabletRfl: 0 amitriptyline (ELAVIL) 10 mg tabletTake 1 tablet by mouth daily at bedtime.Disp: 30 tabletRfl: 2 Prescriptions as of 07/22/2018 Sig: SENNOSIDES 8.6 MG TABLET as needed for constipation HYDROCODONE 5 MG-ACETAMINOPHE* Take 1 tablet by mouth every * AMITRIPTYLINE 10 MG TABLET Take 1 tablet by mouth daily * SUMATRIPTAN 100 MG TABLET Take 1 tablet by mouth as nee* COMPOUNDED PRESCRIPTION Mammogram: screening KETOCONAZOLE 2 % SHAMPOO Apply 1 application to affect* Problem List As Of Date 07/22/2018 Noted Resolved Headache [R51] INVALID FOR*11/07/2009 Postlaminectomy syndrome [M96.1] INVALID FOR* More... Chronic low back pain [M54.5, G89.29] INVALID FOR*04/09/2015 Visit for wound check [Z51.89] INVALID FOR*06/25/2012 Basal cell carcinoma [C44.91] INVALID FOR* Dysmenorrhea [N94.6] INVALID FOR* Menorrhagia [N92.0] INVALID FOR* Migraine [G43.909] INVALID FOR* Other instructions from your clinician: Try to let your jaw relax. Make a conscious effort not to clench or grind. Avoid any excessive chewing. Use soft foods, ground meat, and avoid gum, candy, soft breads, or anything that makes you use you jaw. Trigger point massage over the muscle knots palpable at the angle of your jaw may help. After a few minutes of steady pressure or circling motion, the muscles will relax, and the knot will go away. You might try taking the palms over your hands, pressing in firmly over the jaw, and slowing sliding your hands down the sides of your face, opening and pulling your jaw downward. Moist heat for 10-20min may also help relax the muscles. You may use over the counter analgesics such as Tylenol, Advil or Aleve. If you clench or grind at night, seeing an field traffic investigator or oral surgeon might be helpful to make a bite plate to keep you from being able to completely close your mouth. In the meantime, for about $20 you can purchase a moldable Doctor's Knowledge Management Consultant over the counter at most [employer] or [employer]. Behavioral therapy can also help to retrain the habits of clenching or grinding. See information on amitriptyline If not effective consider inderal. Prescriptions ordered this encounter Disp Refills Start End HYDROCODONE 5 MG-ACETAMINOPHEN 325 M* 60 t* 0 07/22/2018 08/22/2018 Class: Print RX Route: ORAL Sig: Take 1 tablet by mouth every 6 hours as needed for up to 31 days. Earliest Fill Date: 07/22/18 AMITRIPTYLINE 10 MG TABLET 30 t* 2 07/22/2018 Route: ORAL Sig: Take 1 tablet by mouth daily at bedtime. Medications Discontinued During This Encounter Fluorouracil (EFUDEX) 5 % cream 50 g 1 03/06/2014 07/22/2018 Sig: Apply to suspicous spots on body with a 5mm margin, 2x/day for 6 weeks Disc: Reason for discontinue is not on file. metroNIDAZOLE (METROGEL VAGINAL) 0.7* 1 Tu* 1 11/19/2015 07/22/2018 Route: VAGINAL Sig: Use 1 Applicatorful vaginally daily at bedtime. Disc: Reason for discontinue is not on file. HYDROcodone-acetaminophen (NORCO) 5-* 60 t* 0 06/23/2018 07/22/2018 Class: Print RX Route: ORAL Sig: Take 1 tablet by mouth every 6 hours as needed for up to 31 days. Earliest Fill Date: 06/23/18 Disc: Reason for discontinue is not on file. Encounter Status:Closed by John PFEIFFER PA-C on 07/22/18 CBC AND DIFFERENTIAL Collected: 06/23/2018 Status: F Source: [place] 2:16 PM [facility] REPOSITORY TYPE CODE TESTS RESULT OUT OF REFERENCE UNITS RANGE LAB WBC 3.70-11.00 k/uL WBC 6.08 LAB RBC 3.90-5.20 m/uL RBC 4.79 LAB HGB 11.5-15.5 g/dL Hemoglobin 13.8 LAB HCT 36.0-46.0 % Hematocrit 44.5 LAB MCV 80.0-100.0 fL MCV 92.9 LAB MCH 26.0-34.0 pG MCH 28.8 LAB MCHC 30.5-36.0 g/dL MCHC 31.0 LAB RDWCV 11.5-15.0 % RDW-CV 13.1 LAB PLTCT 150-400 k/uL Platelet Count 220 LAB MPV 9.0-12.7 fL MPV 10.9 LAB ANEUT % Neut% 57.8 LAB AANEUT 1.45-7.50 k/uL Abs Neut 3.51 LAB ALYMP % Lymph% 32.2 LAB AALYMP 1.00-4.00 k/uL Abs Lymph 1.96 LAB AMONO % [place]% 8.4 LAB AAMONO <0.87 k/uL Abs [place] 0.51 LAB AEOS % Eosin% 0.3 LAB AAEOS <0.46 k/uL Abs Eosin <0.03 LAB ABASO % Baso% 1.3 LAB AABASO <0.11 k/uL Abs Baso 0.08 LAB AUNRBC 0 /100 WBC NRBCs 0.0 LAB ABNRBC <0.01 k/uL Absolute nRBC <0.01 LAB DTYP DTYPE Auto Diff Performed By: #### CBCDIF, CMP #### [facility] [address] [place], [place] [address] COMP METABOLIC PANEL Collected: 06/23/2018 Status: F Source: [place] 2:16 PM [facility] REPOSITORY TYPE CODE TESTS RESULT OUT OF REFERENCE UNITS RANGE LAB TP 6.3-8.0 g/dL Protein, Total 7.4 LAB ALB 3.9-4.9 g/dL Albumin 4.6 LAB CA 8.5-10.2 mg/dL Calcium, Total 9.4 LAB TBIL 0.2-1.3 mg/dL Bilirubin, Total 0.3 LAB ALKP 34-123 U/L Alkaline Phosphatase 65 LAB AST 13-35 U/L AST 19 LAB GLU 74-99 mg/dL Glucose 95 Result Comment: The [place] Diabetes Association (ADA) provides guidance for cutoff values for fasting glucose and random glucose. The ADA defines fasting as no caloric intake for at least 8 hours. Fas ting plasma glucose results between 100 to 125 mg/dL indicate increased risk for diabetes (prediabetes). Fasting plasma glucose results greater than or equal to 126 mg/dL meet the criteria for diagnosis of diabetes. In the absence of unequivocal hyperglycemia, results should be confirmed by repeat testing. In a patient with classic symptoms of hyperglycemia or hyperglycemic crisis, random plasma glucose results greater than or equal to 200 mg/dL meet the criteria for diagnosis of diabetes. Reference: Standards of Medical Care in Diabetes 2016, [place] [employer] Association. Diabetes Care. 2016.39(Suppl 1). LAB BUN 7-21 mg/dL BUN 7 LAB CRET 0.58-0.96 mg/dL Creatinine 0.67 LAB NA 136-144 mmol/L Sodium 137 LAB K 3.7-5.1 mmol/L Potassium 3.7 LAB CL 97-105 mmol/L Chloride 101 LAB CO2 22-30 mmol/L CO2 Low 19 LAB AGAP 9-18 mmol/L Anion Gap 17 LAB ALT 7-38 U/L ALT 13 LAB GFRAA eGFR- Amer. >60 LAB GFRNAA . eGFR-All Other Races >60 Result Comment: eGFR (Estimated GFR) Units of measure: mL/min/1.73 meters squared eGFR is derived from the reexpressed MDRD Study equation using the following parameters: serum creatinine, age, gender and race. The creatinine assay has been calibrated to be traceable to IDMS. An eGFR <60 mL/min/1.73m2 for >3 months is consistent with chronic kidney disease. Refer to KDOQI guidelines for clinical interpretation. In patients with unstable renal function, e.g. those with acute kidney injury, the eGFR may not accurately reflect actual GFR. Performed By: #### CBCDIF, CMP #### [facility] [address] [address] TOXICOLOGY SCREEN,UR Collected: 06/23/2018 Status: F Source: [place] 2:16 PM [facility] REPOSITORY TYPE CODE TESTS RESULT OUT OF REFERENCE UNITS RANGE LAB UPCP2 Negative Negative Phencyclidin e, Urine Result Comment: Cutoff threshold at 25 ng/mL. LAB UBENZ2 Negative Benzodiazepines, Ur Negative Result Comment: Cutoff threshold at 200 ng/mL. LAB UCOC2 Negative Cocaine, Negative Urine Result Comment: Cutoff threshold at 300 ng/mL. LAB UAMPH2 Negative Amphetamines, Urine Negative Result Comment: Cutoff threshold at 1000 ng/mL. LAB UTHC2 Negative Cannabinoids, Urine Negative Result Comment: Cutoff threshold at 50 ng/mL. LAB UOPI2 Negative Opiates, Negative Urine Result Comment: Cutoff threshold at 300 ng/mL. LAB UBARB2 Negative Barbiturates, Urine Negative Result Comment: Cutoff threshold at 200 ng/mL. LAB UETOH <11 mg/dL <11 Ethanol, Urine LAB UOXYC Negative Oxycodone, Negative Urine Result Comment: Cutoff threshold at 100 ng/mL. Comment: Immunoassay screen only. Cross reactivity with other substances can occur with immunoassay screening. Detection of any drug(s) in this urine toxicology panel is presumptive only. These tests are for med ical purposes only and should not be used for compliance monitoring, legal, or forensic use. Samples should be within normal physiological conditions (e.g. pH). This assay does not include adulteration/specimen validity testing. In clinical settings, confirmatory testing is at the practitioner's discretion [1]. If clinically indicated, confirmation by high specificity, quantitative methodology, which includes adulteration/spec imen validity testing, may be requested on the same specimen through Client Services ([phone]) if contacted within 48 hours of initial testing. [1]Substance Abuse and Mental Health Services Administration (2012). Clinical Drug Testing in Primary Care Technical Assistance Publication Series 32. Department of Health and Human Services, [place], p.10. These tests were developed and their performance characteristics determined by [facility] ([facility]). They have not been cleared or a pproved by the FDA. [facility] is regulated under CLIA as qualified to perform high complexity testing. These tests are used for clinical purposes. They should not be regarded as investigational or for research. Performed By: #### [email or web address] #### [facility] [address], [place] [address] PROGRESS Observed: 11/23/2017 Status: COMPLETED Source: [place] 5:02 PM [facility] REPOSITORY O ID: [id number] Author: Jamarcus Lubin Service: (none) Author Type: Physician Type: Progress Notes Filed: 11/23/2017 5:18 PM Note Text: Patient presents with: Medication Problem HPI: Patient presents today for office visit for follow up. Nursing Notes: Magdalena Pedroza Ma 11/23/2017 4:35 PM Signed MEDICATION: Pt feels that the Topamax is causing mood changes. She is feeling depressed and anxious. She has trouble with sleeping. She is forgetful lately. Her blood pressure has been elevated. HOME BP READINGS: 136/95 2/6 145/99 2/7 139/96 2/8 121/86 2/9 114/65 2/12 128/88 2/14 132/91 2 145/103 today No new stresses. 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 No suicidal ideation. Moods are much worse. No new stresses. More anxious. bp has been up. Had issues getting out of bed yesterday. Her headaches are perfect. No chest pain or shortness of breath. MEDICATIONS: Current Outpatient Prescriptions: HYDROcodone-acetaminophen (NORCO) 5-325 mg per tablet Take 1 tablet by mouth every 6 hours as needed for up to 31 days.Earliest Fill Date: 10/23/17 SUMAtriptan (IMITREX) 100 mg tablet Take 1 tablet by mouth as needed. topiramate (TOPAMAX) 25 mg tablet Take 1 tablet by mouth daily at bedtime. COMPOUNDED PRESCRIPTION Mammogram: screening metroNIDAZOLE (METROGEL VAGINAL) 0.75 % Vaginal Gel Use 1 Applicatorful vaginally daily at bedtime. ketoconazole 2 % shampoo Apply 1 application to affected area once daily as needed. To affected area on body Fluorouracil (EFUDEX) 5 % cream Apply to suspicous spots on body with a 5mm margin, 2x/day for 6 weeks SENNOSIDES 8.6 MG TAB as needed for constipation No current facility-administered medications for this visit. ALLERGIES: ALLERGIES Allergen Reactions - Celestone [Betameth* Other: See Comments Cheeks and neck red and hot- felt like she had a fever in top 1/2 of body, other steroids have been ok - Codeine GI UPSET, HEART RACES - Neurontin [Gabapent* Other: See Comments Extreme dizziness - Sulfa (Sulfonamide * UNKNOWN PAST MEDICAL HISTORY Diagnosis Date - Basal cell carcinoma 2011, 2015 multiple sites - High blood pressure - PMH - PAST MEDICAL HISTORY OF irritable bowel syndrome - PMH - PAST MEDICAL HISTORY OF back pain - PMH - PAST MEDICAL HISTORY OF Injections L4-L5 by Dr Knox in [place] PAST SURGICAL HISTORY Procedure Laterality Date - MOHS, 1 STAGE, TRUNK/ARM/LEG multiple BCC - PAST SURGICAL HISTORY OF 02/2003 x2 discectomy L4-5 S1 - PAST SURGICAL HISTORY OF DANDC - PAST SURGICAL HISTORY OF 07/11/2004 L5-S1 anterior lumbar interbody fusion with posterior L5- S1 translaminar facet screw on left side and a facet joint screw on the right side, and this would be a 360-degree fusion - PAST SURGICAL HISTORY OF 1999 lasix eye surgery - PAST SURGICAL HISTORY OF 2003 wisdom teeth - S THERMACHOICE UTERINE BALLOON 01/02/15 Hysteroscopy w/ endometrial ablation FAMILY HISTORY Problem Relation Age of Onset - Lipids Mother - Headache Mother - Ischemic Heart Disease Maternal Grandmother - Skin Cancer Maternal Grandmother 60 - Ischemic Heart Disease Maternal Grandfather - Melanoma [Other] [OTHER] Maternal Grandfather 81 - Hypertension Paternal Grandmother all grandparents - Breast Cancer Paternal Grandmother 66 - Breast Cancer Paternal Aunt 45 bilateral - Colon Cancer Paternal Aunt 55 - Kidney Cancer [Other] [OTHER] Paternal Aunt 55 - Breast Cancer Paternal Aunt 40s - Breast Cancer Maternal Aunt 50s Social History Marital status: Single Spouse name: Brice Years of education: Number of children: 1 Occupational History 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 REVIEW OF SYSTEMS All other reviewed and negative other than HPI. HEALTH MAINTENANCE: Reviewed health maintenance issues today and recommended the following in detail. VITALS: BP 138/88 Pulse 88 Resp 16 Last 4 Encounter Wt Readings: Date: Wt: 12/16/2016 54.4 kg (120 lb) 11/12/2016 55.8 kg (123 lb 0.3 oz) 11/19/2015 55.8 kg (123 lb) 01/16/2015 53.9 kg (118 lb 12.8 oz) PHYSICAL EXAMINATION: General appearance: Well appearing, alert, in no acute distress, well-hydrated, well nourished. Skin: Skin color, texture, turgor normal, no suspicious rashes or lesions Head: Normocephalic, no masses, lesions, tenderness or abnormalities Neck: Supple, no adenopathy; thyroid symmetric, normal size, no bruits Lungs: Lungs clear to auscultation. No wheezing, rhonchi, rales Heart: RRR without murmur, gallop, or rubs. No ectopy Abdomen: Normal abdominal exam, Abdomen soft, non-tender. Bowel sounds normal. No masses, organomegaly Extremities: No deformities, edema, skin discoloration, clubbing or cyanosis. Good capillary refill. PSYCH:Affect normal. Normal speech. Normal eye contact ASSESSMENT/PLAN: 1. Other migraine without status migrainosus, not intractable - ICD9: 346.80, ICD10: G43.809 (primary diagnosis) - will stop meds. Call if any issues. Is on low dose don't think she needs to taper. Her anxiety I think is exacerbated by it which could elevate bp. Will consider a different type of med if headaches resume. 2. Mood disorder (HCC) - ICD9: 296.90, ICD10: F39 - may well be med related. Jamarcus Lubin MD RTO in two weeks and bring in bp with her. and prn. CNOV Observed: 11/23/2017 Status: COMPLETED Source: [place] 4:20 PM [facility] REPOSITORY [facility] SOL PORTILLO ([id number]) 1975 F Date Time Provider Department 11/23/17 4:20 PM JAMARCUS LUBIN [facility] During your visit today, we recorded the following information about you: Pulse Respiration Blood pressure 88/minute 16/minute 138/88 Magdalena Pedroza Ma 11/23/2017 4:35 PM Signed MEDICATION: Pt feels that the Topamax is causing mood changes. She is feeling depressed and anxious. She has trouble with sleeping. She is forgetful lately. Her blood pressure has been elevated. HOME BP READINGS: 136/95 2/6 145/99 2/7 139/96 2/8 121/86 2/9 114/65 2/12 128/88 2/14 132/91 2/15 145/103 today Jamarcus Lubin MD 11/23/2017 5:18 PM Signed Patient presents with: Medication Problem HPI: Patient presents today for office visit for follow up. Nursing Notes: Magdalena Pedroza Ma 11/23/2017 4:35 PM Signed MEDICATION: Pt feels that the Topamax is causing mood changes. She is feeling depressed and anxious. She has trouble with sleeping. She is forgetful lately. Her blood pressure has been elevated. HOME BP READINGS: 136/95 2/6 145/99 2/7 139/96 2/8 121/86 2/9 114/65 2/12 128/88 2/14 132/91 2/15 145/103 today No new stresses. 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 No suicidal ideation. Moods are much worse. No new stresses. More anxious. bp has been up. Had issues getting out of bed yesterday. Her headaches are perfect. No chest pain or shortness of breath. MEDICATIONS: Current Outpatient Prescriptions: HYDROcodone-acetaminophen (NORCO) 5-325 mg per tablet Take 1 tablet by mouth every 6 hours as needed for up to 31 days.Earliest Fill Date: 10/23/17 SUMAtriptan (IMITREX) 100 mg tablet Take 1 tablet by mouth as needed. topiramate (TOPAMAX) 25 mg tablet Take 1 tablet by mouth daily at bedtime. COMPOUNDED PRESCRIPTION Mammogram: screening metroNIDAZOLE (METROGEL VAGINAL) 0.75 % Vaginal Gel Use 1 Applicatorful vaginally daily at bedtime. ketoconazole 2 % shampoo Apply 1 application to affected area once daily as needed. To affected area on body Fluorouracil (EFUDEX) 5 % cream Apply to suspicous spots on body with a 5mm margin, 2x/day for 6 weeks SENNOSIDES 8.6 MG TAB as needed for constipation No current facility-administered medications for this visit. ALLERGIES: ALLERGIES Allergen Reactions - Celestone [Betameth* Other: See Comments Cheeks and neck red and hot- felt like she had a fever in top 1/2 of body, other steroids have been ok - Codeine GI UPSET, HEART RACES - Neurontin [Gabapent* Other: See Comments Extreme dizziness - Sulfa (Sulfonamide * UNKNOWN PAST MEDICAL HISTORY Diagnosis Date - Basal cell carcinoma 2011, 2016 multiple sites - High blood pressure - PMH - PAST MEDICAL HISTORY OF irritable bowel syndrome - PMH - PAST MEDICAL HISTORY OF back pain - PMH - PAST MEDICAL HISTORY OF Injections L4-L5 by Dr Knox in [place] PAST SURGICAL HISTORY Procedure Laterality Date - MOHS, 1 STAGE, TRUNK/ARM/LEG multiple BCC - PAST SURGICAL HISTORY OF 02/2003 x2 discectomy L4-5 S1 - PAST SURGICAL HISTORY OF DANDamp;C - PAST SURGICAL HISTORY OF 07/11/2004 L5-S1 anterior lumbar interbody fusion with posterior L5- S1 translaminar facet screw on left side and a facet joint screw on the right side, and this would be a 360-degree fusion - PAST SURGICAL HISTORY OF 1999 lasix eye surgery - PAST SURGICAL HISTORY OF 2003 wisdom teeth - S THERMACHOICE UTERINE BALLOON 01/02/15 Hysteroscopy w/ endometrial ablation FAMILY HISTORY Problem Relation Age of Onset - Lipids Mother - Headache Mother - Ischemic Heart Disease Maternal Grandmother - Skin Cancer Maternal Grandmother 60 - Ischemic Heart Disease Maternal Grandfather - Melanoma [Other] [OTHER] Maternal Grandfather 81 - Hypertension Paternal Grandmother all grandparents - Breast Cancer Paternal Grandmother 66 - Breast Cancer Paternal Aunt 45 bilateral - Colon Cancer Paternal Aunt 55 - Kidney Cancer [Other] [OTHER] Paternal Aunt 55 - Breast Cancer Paternal Aunt 40s - Breast Cancer Maternal Aunt 50s Social History Marital status: Single Spouse name: Brice Years of education: Number of children: 1 Occupational History 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 REVIEW OF SYSTEMS All other reviewed and negative other than HPI. HEALTH MAINTENANCE: Reviewed health maintenance issues today and recommended the following in detail. VITALS: BP 138/88 Pulse 88 Resp 16 Last 4 Encounter Wt Readings: Date: Wt: 12/16/2016 54.4 kg (120 lb) 11/12/2016 55.8 kg (123 lb 0.3 oz) 11/19/2015 55.8 kg (123 lb) 01/16/2015 53.9 kg (118 lb 12.8 oz) PHYSICAL EXAMINATION: General appearance: Well appearing, alert, in no acute distress, well-hydrated, well nourished. Skin: Skin color, texture, turgor normal, no suspicious rashes or lesions Head: Normocephalic, no masses, lesions, tenderness or abnormalities Neck: Supple, no adenopathy; thyroid symmetric, normal size, no bruits Lungs: Lungs clear to auscultation. No wheezing, rhonchi, rales Heart: RRR without murmur, gallop, or rubs. No ectopy Abdomen: Normal abdominal exam, Abdomen soft, non-tender. Bowel sounds normal. No masses, organomegaly Extremities: No deformities, edema, skin discoloration, clubbing or cyanosis. Good capillary refill. PSYCH:Affect normal. Normal speech. Normal eye contact ASSESSMENT/PLAN: 1. Other migraine without status migrainosus, not intractable - ICD9: 346.80, ICD10: G43.809 (primary diagnosis) - will stop meds. Call if any issues. Is on low dose don't think she needs to taper. Her anxiety I think is exacerbated by it which could elevate bp. Will consider a different type of med if headaches resume. 2. Mood disorder (HCC) - ICD9: 296.90, ICD10: F39 - may well be med related. Jamarcus Lubin MD RTO in two weeks and bring in bp with her. and prn. Referring Provider: SELF [200] Allergies As of Date: 11/23/2017 Noted Allergy Reaction CELESTONE (BETAMETHASONE SODIUM P*12/19/2010 14 - Other: See Comments Comments: Cheeks and neck red and hot- felt like she had a fever in top 1/2 of body, other steroids have been ok CODEINE 07/01/2004 Comments: GI UPSET, HEART RACES NEURONTIN (GABAPENTIN) 02/09/2014 14 - Other: See Comments Comments: Extreme dizziness SULFA (SULFONAMIDE ANTIBIOTICS) 07/01/2004 Comments: UNKNOWN Date Reviewed: 11/23/2017 Reviewed by: Magdalena Pedroza Ma - Fully Assessed Reason for Visit: Medication Problem [509] Primary Visit Diagnosis:Other migraine without status migrainosus, not intractable [G43.809] Other Visit Diagnosis:Mood disorder (HCC) [F39] Prescriptions as of 11/23/2017 Sig: HYDROCODONE 5 MG-ACETAMINOPHE* Take 1 tablet by mouth every * SUMATRIPTAN 100 MG TABLET Take 1 tablet by mouth as nee* COMPOUNDED PRESCRIPTION Mammogram: screening METRONIDAZOLE 0.75 % VAGINAL * Use 1 Applicatorful vaginally* KETOCONAZOLE 2 % SHAMPOO Apply 1 application to affect* FLUOROURACIL 5 % TOPICAL CREAM Apply to suspicous spots on b* SENNOSIDES 8.6 MG TABLET as needed for constipation Problem List As Of Date 11/23/2017 Noted Resolved Headache [R51] INVALID FOR*11/07/2009 Postlaminectomy syndrome [M96.1] INVALID FOR* More... Chronic low back pain [M54.5, G89.29] INVALID FOR*04/09/2015 Visit for wound check [Z51.89] INVALID FOR*06/25/2012 Basal cell carcinoma [C44.91] INVALID FOR* Dysmenorrhea [N94.6] INVALID FOR* Menorrhagia [N92.0] INVALID FOR* Migraine [G43.909] INVALID FOR* Visit Notes: >> Magdalena Pedroza Ma Mon Nov 23, 2017 4:28 PM Status: Signed MEDICATION: Pt feels that the Topamax is causing mood changes. She is feeling depressed and anxious. She has trouble with sleeping. She is forgetful lately. Her blood pressure has been elevated. HOME BP READINGS: 136/95 2/6 145/99 2/7 139/96 2/8 121/86 2/9 114/65 212 128/88 2/14 132/91 2/15 145/103 today Medications Discontinued During This Encounter topiramate (TOPAMAX) 25 mg tablet 30 t* 3 08/20/2017 11/23/2017 Route: ORAL Sig: Take 1 tablet by mouth daily at bedtime. Disc: Reason for discontinue is not on file. Encounter Status:Closed by JAMARCUS LUBIN MD on 11/23/17 PROGRESS Observed: 10/23/2017 Status: COMPLETED Source: [place] 1:10 PM [facility] REPOSITORY O ID: [id number] Author: Jamarcus Lubin Service: (none) Author Type: Physician Type: Progress Notes Filed: 10/23/2017 1:21 PM Note Text: Patient presents with: Recheck Blood Pressure Check HPI: Patient presents today for office visit for follow up. bp was up at recent skin procedure. Totally asymptomatic. No chest pain or shortness of breath. No edema. No dizziness or headache. Is Better but borderline today. No new stresses. Feeling well. topamax has helped with her headaches. Not made any difference with her back. Pain has been worse. Since is winter. OARRS website checked and validated. All prescriptions have been APPROPRIATELY filled. No suspicious activity was identified. Note: A urine tox screen and urine pain panel have been completed appropriately (after 12 weeks of initiating therapy and at least yearly thereafter). Note: A narcotics contract has been signed and scanned into the EMR.- 10/23/2017 by Jamarcus Lubin MD. No hx of misuse or diversion. Understands risks . Has tried numerous options and has seen specialist who concurs. MEDICATIONS: Current Outpatient Prescriptions: SUMAtriptan (IMITREX) 100 mg tablet Take 1 tablet by mouth as needed. HYDROcodone-acetaminophen (NORCO) 5-325 mg per tablet Take 1 tablet by mouth every 6 hours as needed for up to 31 days. topiramate (TOPAMAX) 25 mg tablet Take 1 tablet by mouth daily at bedtime. COMPOUNDED PRESCRIPTION Mammogram: screening metroNIDAZOLE (METROGEL VAGINAL) 0.75 % Vaginal Gel Use 1 Applicatorful vaginally daily at bedtime. ketoconazole 2 % shampoo Apply 1 application to affected area once daily as needed. To affected area on body Fluorouracil (EFUDEX) 5 % cream Apply to suspicous spots on body with a 5mm margin, 2x/day for 6 weeks SENNOSIDES 8.6 MG TAB as needed for constipation No current facility-administered medications for this visit. ALLERGIES: ALLERGIES Allergen Reactions - Celestone [Betameth* Other: See Comments Cheeks and neck red and hot- felt like she had a fever in top 1/2 of body, other steroids have been ok - Codeine GI UPSET, HEART RACES - Neurontin [Gabapent* Other: See Comments Extreme dizziness - Sulfa (Sulfonamide * UNKNOWN PAST MEDICAL HISTORY Diagnosis Date - Basal cell carcinoma 2011, 2015 multiple sites - High blood pressure - PMH - PAST MEDICAL HISTORY OF irritable bowel syndrome - PMH - PAST MEDICAL HISTORY OF back pain - PMH - PAST MEDICAL HISTORY OF Injections L4-L5 by Dr Knox in [place] PAST SURGICAL HISTORY Procedure Laterality Date - MOHS, 1 STAGE, TRUNK/ARM/LEG multiple BCC - PAST SURGICAL HISTORY OF 02/2003 x2 discectomy L4-5 S1 - PAST SURGICAL HISTORY OF DANDC - PAST SURGICAL HISTORY OF 07/11/2004 L5-S1 anterior lumbar interbody fusion with posterior L5- S1 translaminar facet screw on left side and a facet joint screw on the right side, and this would be a 360-degree fusion - PAST SURGICAL HISTORY OF 2000 lasix eye surgery - PAST SURGICAL HISTORY OF 2003 wisdom teeth - S THERMACHOICE UTERINE BALLOON 01/02/15 Hysteroscopy w/ endometrial ablation FAMILY HISTORY Problem Relation Age of Onset - Lipids Mother - Headache Mother - Ischemic Heart Disease Maternal Grandmother - Skin Cancer Maternal Grandmother 60 - Ischemic Heart Disease Maternal Grandfather - Melanoma [Other] [OTHER] Maternal Grandfather 81 - Hypertension Paternal Grandmother all grandparents - Breast Cancer Paternal Grandmother 66 - Breast Cancer Paternal Aunt 45 bilateral - Colon Cancer Paternal Aunt 55 - Kidney Cancer [Other] [OTHER] Paternal Aunt 55 - Breast Cancer Paternal Aunt 40s - Breast Cancer Maternal Aunt 50s Social History Marital status: Single Spouse name: Brice Years of education: Number of children: 1 Occupational History 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 REVIEW OF SYSTEMS All other reviewed and negative other than HPI. VITALS: BP 128/90 Pulse 76 Resp 16 Last 4 Encounter Wt Readings: Date: Wt: 12/16/2016 54.4 kg (120 lb) 11/12/2016 55.8 kg (123 lb 0.3 oz) 11/19/2015 55.8 kg (123 lb) 01/16/2015 53.9 kg (118 lb 12.8 oz) PHYSICAL EXAMINATION: General appearance: Well appearing, alert, in no acute distress, well-hydrated, well nourished. Skin: Skin color, texture, turgor normal, no suspicious rashes or lesions Head: Normocephalic, no masses, lesions, tenderness or abnormalities Neck: Supple, no adenopathy; thyroid symmetric, normal size, no bruits Lungs: Lungs clear to auscultation. No wheezing, rhonchi, rales Heart: RRR without murmur, gallop, or rubs. No ectopy Abdomen: Normal abdominal exam, Abdomen soft, non-tender. Bowel sounds normal. No masses, organomegaly Extremities: No deformities, edema, skin discoloration, clubbing or cyanosis. Good capillary refill. ASSESSMENT/PLAN: 1. Elevated blood pressure reading without diagnosis of hypertension - ICD9: 796.2, ICD10: R03.0 (primary diagnosis) - Encouraged dietary sodium restriction/DASH diet - Recommended regular aerobic exercise. - Will check bp at work and bring in list. - bp check in two weeks. 2. DDD (degenerative disc disease), lumbar - ICD9: 722.52, ICD10: M51.36 - continue meds. Call if any issues. Aware of risks of taking. - HYDROCODONE 5 MG-ACETAMINOPHEN 325 MG TABLET 3. Medication monitoring encounter - ICD9: V58.83, ICD10: Z51.81 - check urine. - TOX SCREEN ROUT UR Jamarcus Lubin MD ALLERGIES ALLERGIES DATE TYPE / CODE NAME / CODE REACTION SEVERITY SOURCE 09/02/2018 Drug betamethasone Unknown Unknown [place] Allergy/416 sodium Community 369169(SNOM phosphate/A50586810 Hospital ED CT) 2(RXNORM) Repository 09/02/2018 Drug Sulfa (Sulfonamide Other Unknown [place] Allergy/416 Antibiotics)/G70033 Community 428272(OM 0491(RXNORM) [facility] ED CT) Repository 09/02/2018 Drug codeine/P903051211( Other Unknown [place] Allergy/416 RXNORM) Community 890630([facility] ED CT) Repository 09/02/2018 Drug betamethasone/F0060 Unknown Unknown [place] Allergy/416 64942(RXNORM) Community 437155([facility] ED CT) Repository 02/09/2014 DRUG GABAPENTIN OTHER: SEE C [facility] INGREDI/419 [address] [place] 189459(SNOM Repository ED CT) 12/19/2010 DRUG BETAMETHASONE OTHER: SEE C [facility] INGREDI/419 SODIUM PHOSPHATE [place] 858400(SNOM Repository ED CT) 07/01/2004 DRUG CODEINE [facility] INGREDI/419 [address] [place] 115054(SNOM Repository ED CT) 07/01/2004 Drug SULFA (SULFONAMIDE [facility] Class/36839 ANTIBIOTICS) Main [place] 1003(SNOMED Repository CT) ENCOUNTERS ENCOUNTERS ADMIT/DISCHARGE ACCOUNT ADMITTING ENCOUNTER LOCATION SOURCE NUMBER CLASS 09/09/2018 [id number] Ambulatory [facility] ing:OPBI Repository 09/02/2018/09/02/20 [id number] Ambulatory BMSBuilding:B [place] [facility] MS.Critical access hospital Repository 09/02/2018 [id number] Ambulatory [facility] ing:MTLAB Repository 08/29/2018 [id number] Ambulatory BMSBuilding:[facility]y [facility] [place].CF.Critical access hospital Repository 08/28/2018 [id number] [place], Ambulatory BMSBuilding:[facility]y [facility].CF.Critical access hospital Repository 08/28/2018/08/30/20 [id number] [place], Inpatient [place] 18 [facility] ing:BG3Zvop: Repository FG112Hpd: 1 08/28/2018 [id number] [place], Ambulatory BMSBuilding:[facility]y C[facility].CF.Critical access hospital Repository 08/28/2018 [id number] Ambulatory BMSBuilding:[facility].Critical access hospital Repository 08/27/2018 [id number] Ambulatory BMSBuilding:[facility].CF.Critical access hospital Repository 08/26/2018 [id number] Ambulatory BMSBuilding:[facility].Critical access hospital Repository 07/23/2018/07/26/20 [id number] Ambulatory [address] Repository 07/22/2018/07/23/20 [id number] Ambulatory [address] Repository 06/23/2018/06/23/20 [id number] Ambulatory [address] Repository 11/23/2017/11/25/19 [id number] Ambulatory [address] Repository 10/23/2017/10/23/19 [id number] Ambulatory [address] Repository PAYERS PAYERS ENCOUNTER GUARANTOR PAYER SUBSCRIBER SOURCE 09/09/2018 SOL Rashid Primary SOL [id number] Insurance:Ronald ALBRIGHT: [facility] Number: [id number], [place] [id number] Repository 34013Cxn: 330 Date:5591-15-90VN [phone] () 589863BFHYOTYKBFL, [place] [address]IC: 09/09/2018 Secondary NOT GIVENUNK [place] Insurance:SELF PAY [facility] Number: Effective Repository Date:2018-07-26 09/02/2018 SLO Rashid Primary SOL Rashid [place] [id number] Insurance:CIGNAPolicy LUNDQUISTDOB: Community [place] Number: [id number] [id number] Repository 25666Zbm: (330) Date:2851-15-50TN [phone] () 788012PEZTOZOJDBU, [place] [address]KH: 09/02/2018 Secondary NOT GIVENUNK [place] Insurance:SELF PAY [facility] Number: Effective Repository Date:2018-09-02 09/02/2018 SOL Rashid Primary SOL Rashid [place] [id number] Insurance:CIGNAPolicy LUNDQUISTDOB: [facility] Number: [id number], [place] [id number] Repository [address]23[address]Cee: (330) Date:8647-48-73HC [phone] () [id number], [place] [address]PQ: 09/02/2018 Secondary NOT GIVENUNK [place] Insurance:SELF PAY [facility] Number: Effective Repository Date:2018-09-02 08/29/2018 SOL Rashid Primary SOL Rashid [place] [id number] Insurance:CIGNAPolicy LUNDQUISTDOB: [facility] Number: [id number], [place] [id number] Repository 612[address]Bmt: (330) Date:5077-65-53OU [phone] () 529863SCFKLENBDYH, [place] [address]FT: 08/29/2018 Secondary NOT GIVENUNK [place] Insurance:SELF PAY [facility] Number: Effective Repository Date:2018-08-29 08/28/2018 SOL Rashid Primary SOL [place] [id number] Insurance:CIGNAPolicy LUNDQUISTDOB: [facility] Number: [id number], [place] [id number] Repository 176[address]Ytr: (330) Date:7205-92-78YD [phone] () [id number], [place] [address]FM: 08/28/2018 Secondary NOT GIVENUNK [place] Insurance:SELF PAY [facility] Number: Effective Repository Date:2018-08-28 08/28/2018 SOL J Primary SOL Rashid [place] [id number] Insurance:CIGNAPolicy LUNDQUISTDOB: [facility] Number: [id number], [place] [id number] Repository 09[address]Ntv: (330) Date:0926-57-15HE [phone] () 382243QUXEJRWDOIH, [place] [address]SB: 08/28/2018 Secondary NOT GIVENUNK [place] Insurance:SELF PAY [facility] Number: Effective Repository Date:2018-08-26 08/28/2018 SOL J Primary SOL Rashid [place] [id number] Insurance:CIGNAPolicy LUNDQUISTDOB: [facility] Number: [id number], [place] [id number] Repository 324[address]Gve: (330) Date:2046-08-67GG [phone] () [id number], [place] [address]EC: 08/28/2018 Secondary NOT GIVENUNK [place] Insurance:SELF PAY [facility] Number: Effective Repository Date:2018-08-28 08/28/2018 SOL J Primary SOL J [place] [id number] Insurance:CIGNAPolicy LUNDQUISTDOB: [facility] Number: [id number], [place] [id number] Repository 51535Dts: (330) Date:5198-63-12PK [address] () [id number], [place] [address]YH: 08/28/2018 Secondary NOT GIVENUNK [place] Insurance:SELF PAY [facility] Number: Effective Repository Date:2018-08-28 08/27/2018 SOL J Primary SOL J [place] [id number] Insurance:CIGNAPolicy LUNDQUISTDOB: Community [place] Number: [id number], [place] [id number] Repository 769[address]Ncz: (330) Date:0920-30-52QF [phone] () [id number], [place] [address]JU: 08/27/2018 Secondary NOT GIVENUNK [place] Insurance:SELF PAY [facility] Number: Effective Repository Date:2018-08-27 08/26/2018 SOL J Primary SOL J [place] [id number] Insurance:Ronald GUERREROB: [facility] Number: [id number], [place] [id number] Repository 115[address]Mks: (330) Date:2139-23-59EM [phone] () [id number], [place] [address]PW: 08/26/2018 Secondary NOT GIVENUNK [place] Insurance:SELF PAY [facility] Number: Effective Repository Date:2018-08-26
== END ==
PROVIDERS: Family Provider Family Medicine; PCP Family Medicine; Referring Provider Surgery; Visit Provider Surgery
DX: R50.9 Fever, unspecified (principal)
CPT/HCPCS: 36415; 80053; 83630; 83690; 85025; 87177; 87209; 87493; 87506

== ENCOUNTER → 2018-09-09 07:00 | Outpatient (CLI) | payer OTHER, SELFPAY ==
[2018-08-26 20:38] VITALS: BMI 20.1
--- NOTE | 2018-09-09 06:55 | BI_ITS ---
MAMMOGRAPHY - BILATERAL SCREENING REASON FOR EXAM: Female, 42 years old. Routine annual screening examination. PERTINENT HISTORY: Grandmother with breast cancer. Aunts with breast cancer. TECHNIQUE: Digital bilateral breast meron (3D mammographic acquisition) in the CC and MLO projections. 2-D mediolateral oblique (MLO) and craniocaudad (CC) views of both breasts were obtained. CAD: Full Field Digital Mammography with Computer Added Detection was performed. COMPARISON: Comparison is made with prior study dated April 16, 2016 and January 17, 2014. FINDINGS: Breast Composition: The breasts are extremely dense, which lowers the sensitivity of mammography. There are no dominant masses or suspicious calcifications. No other significant abnormalities are identified. There has been no significant change since the prior study. BI/SCREENING MAMM (CAD), BILAT IMPRESSION: Stable bilateral screening mammogram. Yearly follow-up mammogram recommended. (A) ASSESSMENT CATEGORY: BIRADS Category 1: Negative. A letter regarding these results will be sent to the patient by the facility within 30 days. Approximately 10% of breast cancers are not detected by mammography. A normal mammogram should not delay biopsy of a clinically suspicious abnormality. [id number] Electronically Signed: Sami Gordon MD at 14:58 EST Tel [phone], Service support ,
== END ==
PROVIDERS: Family Provider Family Medicine; PCP Family Medicine
DX: Z12.31 Encounter for screening mammogram for malignant neoplasm of breast (principal); Z80.3 Family history of malignant neoplasm of breast
CPT/HCPCS: 77063; 77067

== ENCOUNTER → 2019-09-23 06:58 | Outpatient (CLI) | payer OTHER, SELFPAY ==
[2019-05-06 16:13] VITALS: BMI 20.1
--- NOTE | 2019-09-23 07:00 | BI_ITS ---
MAMMOGRAPHY - BILATERAL SCREENING 3-D TOMOSYNTHESIS REASON FOR EXAM: Female, 43 years old. BILAT SCREENING - FAM HX OF PAT GRANDMOTHER @ AGE 67, 2 MAT AUNTS @ AGE 40''S and amp; MAT GREAT AUNT @ AGE ? - NO PREV SURG''S PERTINENT HISTORY: No significant family history. TECHNIQUE: 2-D mammograms and 3-D Tomosynthesis of the breast (s) were performed. CAD was performed. COMPARISON: September 09, 2018. FINDINGS: The breast composition is heterogeneously dense that can obscure small breast masses. Scattered benign calcifications are seen. No dense spiculated masses or suspicious microcalcifications are identified. No architectural distortion is identified. There is no skin thickening or retraction. There has been no significant change since the prior study. BI/SCREEN MAMM (CAD) W/NICOLA BILAT IMPRESSION: No mammographic signs of malignancy. Routine yearly mammograms recommended. ASSESSMENT CATEGORY: BIRADS Category 1: Negative. A letter regarding these results will be sent to the patient by the facility within 30 days. FOLLOW UP RECOMMENDATION: Yearly follow up mammogram recommended. (A) Approximately 10% of breast cancers are not detected by mammography. A normal mammogram should not delay biopsy of a clinically suspicious abnormality. Electronically Signed: Wai Turcios MD at 8:22 EST , Service support ,
== END ==
PROVIDERS: Family Provider Family Medicine; PCP Family Medicine; Referring Provider Physician Assistant; Visit Provider Physician Assistant
DX: Z12.31 Encounter for screening mammogram for malignant neoplasm of breast (principal); R19.7 Diarrhea, unspecified
CPT/HCPCS: 77063; 77067; 82274; 83630; 87177; 87209; 87493; 87506

== ENCOUNTER 2020-02-28 10:24 | Day surgery (SDC) | payer OTHER, SELFPAY ==
[2020-02-23 13:01] VITALS: BMI 20.1
[2020-02-28 11:02] LABS: Internal QC Validated? YES +Cl - CLEAR BKGD; Pregnancy, Urine Negative Negative
[2020-02-28 11:06] VITALS: BP 115/63; PULSE 90; RESP 16; TEMP 37.2; O2SAT 97; BMI 19.3
[2020-02-28] MEDS: Lactated Ringers 1,000 ML 100 ML IV (11:14)
--- NOTE | 2020-02-28 11:19 | HP.PCM_ITS ---
History and Physical Date of Admission: 02/28/20 [facility] [address] [place] [address] OFFICE VISIT Date of Service: 02/23/20 MR#: [id number] Acct: [id number] Name: SOL SIMPSON Rep #: [id number] : 1975 Provider: Dr. Angel Tamez MD Age/Sex: 44/F Location: [facility] Status: Signed Intake Vital Signs 02/23/20 Height 5 ft 6 in 02/23/20 Weight: 120 lb 02/23/20 BMI 19.3 02/23/20 BP 112/81 H 02/23/20 Blood Pressure Location Rt brachial 02/23/20 Position Sitting 02/23/20 Respiration 18 02/23/20 Pulse 83 02/23/20 Pulse Source Monitor 02/23/20 Temp 97.8 F 02/23/20 Temp Source Temporal 02/23/20 Pulse Oximetry (%) 100 02/23/20 Oxygen Delivery Method room air Intake Visit Reasons: ABDOMINAL PAIN/ DIARRHEA Chief Complaint: epigastric pain/diarrhea Butter Fat Tester Required: No Is patient in pain?: Yes Allergies betamethasone [From Celestone] Allergy (Verified 02/28/20 11:05) Unknown betamethasone sodium phosphate [From Celestone] Allergy (Verified 02/28/20 11:05) Unknown codeine Allergy (Verified 02/28/20 11:05) Other Sulfa (Sulfonamide Antibiotics) Allergy (Verified 02/28/20 11:05) Other Medications Amitriptyline HCl [Elavil] 10 mg PO QHS 08/26/18 [History Confirmed 02/28/20] sumatriptan succinate 50 mg tablet 50 mg PO .PRN tab 04/19/19 [History Confirmed 02/28/20] propranolol 60 mg tablet 60 mg PO HS tab 02/23/20 [History Confirmed 02/28/20] [facility] Age-related facial wrinkles (Chronic) Brow ptosis, bilateral (Chronic) Forehead wrinkles (Acute) Glabellar wrinkles (Chronic) Acute cholecystitis (Acute) Back problem (Acute) Diarrhea (Acute) Epigastric pain (Acute) History of blood transfusion (Acute) Migraines (Acute) Skin cancer (Acute) Hypertension (Chronic) Surgical History History of laparoscopic cholecystectomy (Acute ~08/2018) Previous back surgery (Acute) Family History Other Arthritis Breast cancer Diabetes Heart disease High cholesterol Hypertension Social History (Updated 02/28/20 @ 11:[address] Sage Tamez MD) Smoking Status: Never smoker alcohol intake: never substance use type: does not use additional social history: DOES NOT USE ASPIRIN DOES USE IBUPROFEN NEEDED HPI HPI HPI: SOL SIMPSON, is a 44 F who presents to the office today for HPI HPI Surgical H&P: Yes HPI: SOL SIMPSON, is a 44 F who presents to the office today for Evaluation for abdominal pain and diarrhea. Patient is status post a laparoscopic cholecystectomy back in 2018. She been doing well until recently when she started to have significant epigastric discomfort and chronic diarrhea. She has been extremely fatigued and under significant amount of stress. She has had no shortness of breath. And she is not complaining of any chest pain on exertion. ROS General General: Yes fatigue; no weight change, appetite, colon cancer, breast cancer or weakness HEENT HEENT: No difficulty swallowing, eye injury, eye surgery, swollen glands or hoarseness Endo Endocrine: No thyroid disease, diabetes mellitus, thyroid cancer, Hair loss, heat intolerance or cold intolerance Skin Skin: No rash or changing moles Breast Breast: No left breast lump, right breast lump, nipple discharge, breast pain, abnormal mammogram, abnormal US or breast enlargement Musc Musculoskeletal: Yes back problems; no arthritis, rheumatoid arthritis, gout or joint pain Cardio Cardiovascular: Yes high blood pressure; no murmur, pacemaker, heart disease, atrial fibrillation, heart attack, heart stent, palpitations, shortness of breat with exertion or chest pain Psych Psychiatric: No depression, anxiety or hearing voices Resp Respiratory: No shortness of breath, No sleep apnea, No cough, No COPD, No asthma, No emphysema, No wheezing Gastro Gastrointestinal: Yes abdominal pain, Yes nausea or vomiting, Yes diarrhea, No constipation, No blood in stool, No acid reflux, Yes hemorrhoids, No ulcers, No gallbladder problem, No black,tarry stools Peng Hematologic: No blood thinners, No blood disorders, No bleeding, No anemia, No blood clots Neuro Neurologic: No system reviewed and no additional complaints, except as docu, No as per HPI, No abnormal walking, No abnormal hearing, No abnormal movements, No abnormal speech, No behavioral changes, No burning sensations, No confusion, No seizure-like activity, No unsteadiness, No dizziness, No localized weakness, No frequent falls, No headache(s), No lack of coordination, No loss of vision, No memory loss, No numbness, No other visual disturbances, No radiating pain, No restless legs, No sensory deficit, No fainting, No tingling, No tremor(s), No weakness, No other Exam Const General: no acute distress, well developed, well hydrated Orientation: oriented to person, oriented to place, oriented to time [facility] Head: normocephalic, atraumatic Ears: external ears normal Mouth: moist mucous membranes Eyes Sclera: sclerae normal Pupils: normal by confrontation Neck Neck: no lymphadenopathy noted Neck mass: No Thyroid: thyroid normal, symmetrical Chest Chest palpation & inspection: normal inspection of the chest Breast Palpation: No nipple discharge Resp Effort & Inspection: normal respiratory effort Auscultation: clear to auscultation bilaterally Percussion: percussion normal Cardio Rate: regular rate Rhythm: regular rhythm Heart Sounds: no murmurs GI Palpation: soft, no hepatosplenomegaly, no masses, nontender Rectal Exam: other Other: Rectal exam deferred. Extrem General: normal to inspection, no clubbing, cyanosis or edema Assessment & Plan Problems 1. Epigastric pain R10.13 2. Heartburn R12 3. Diarrhea, unspecified type R19.7 Plan I have discussed the above with the patient. I have offered the patient colonoscopy As well as an EGD for evaluation. I have explained the risks/benefits of the procedure and described the procedure. I have discussed the risks with the patient, including but not limited to: infection, bleeding, perforation of the GI tract requiring emergency surgery, inability to complete the procedure, injury to any internal organs, complications of anesthesia, etc. - the patient understands and agrees to proceed. I have answered all the patient's questions to the patient's satisfaction and the patient has no further questions. The patient has been given instructions for the colon cleansing preparation. Orders Orders: Ova and Parasites 8623 02/23/20 R19.7 CDIFF (Molecular) 02/23/20 R19.7 ENTERIC PATHOGEN PANEL STOOL 02/23/20 R19.7 Stool Occult Blood iFOB 02/23/20 R19.7 Stool Lactoferrin/WBC 02/23/20 R19.7 Coding Level of Care Code Off vis,est,level 3 Diagnoses Epigastric pain R10.13 Heartburn R12 Diarrhea, unspecified type R19.7 ??Diarrhea type: unspecified type 02/28/20 1118 <Electronically signed by Sage hinojosa MD> Date _ Sage Tamez MD Cosign Signature: Date (if applicable) CC: Dr. Jacek Lubin MD ~ I have re-examined the patient. There are no clinical changes since date of exam.
--- NOTE | 2020-02-28 11:30 | EGD_PTH ---
PATIENT: SOL SIMPSON LOC: EN U#:[id number] AGE/SX: 44/F ROOM: RE02/28/[address]: Dr. Sage Tamez MD : 1975 BED: DIS: 02/28/2020 SPEC #: [id number] RECD: 02/28/20 13:48 STATUS: TYLER CAREN #: [id number] BRIAN: 02/28/20 11:[address]: Sage Tamez DEPT: SURGICAL PATHOLOGY RECD BY: Mary Lou Gamez ENTERED: 02/28/20 14:05 SP TYPE: EGD BIOPSY OT DR: Dr. Jacek Lubin MD Tissues: A - Gastric mucous membrane B - COLON BIOPSY C - Transverse colon Procedures: Surgery Specimen Level IV HEADER OPERATION: Colonoscopy, EGD ([facility]) PRE-OP DIAGNOSIS: Epigastric pain, heartburn, diarrhea TISSUE SUBMITTED: A - Antrum biopsy for histo and H. pylori, B - Random colonic biopsy, C - Transverse colon polyp MICROSCOPIC DIAGNOSIS A. Antrum biopsy: Mild gastritis. See microscopic description and comment. B. Colon, random biopsy: Fragments of colonic mucosa with focal pigment laden macrophages, consistent with melanosis coli. C. Transverse colon polyp, biopsy: Tubular adenoma. SJ:rg 03/01/20 COMMENT A. The results of immunohistochemistry for Helicobacter pylori will be reported separately ([id number]). MICROSCOPIC DESCRIPTION Slides are reviewed. A. The specimen shows fragments of gastric mucosa with chronic inflammatory cell infiltrates in the lamina propria consisting of lymphocytes and plasma cells, consistent with mild chronic gastritis. GROSS DESCRIPTION A - Received in fixative is one container labeled with the patient's name and designated antrum biopsy. The specimen consists of one irregular fragment of light jay soft tissue that measures 0.4 x 0.3 x 0.1 cm. The specimen is totally submitted in one cassette. B - Received in fixative is one container labeled with the patient's name and designated random colonic biopsy. The specimen consists of multiple irregular fragments of light jay soft tissue that in aggregate measure 1.5 x 1 x 0.1 cm. The specimen is totally submitted in one cassette. C - Received in fixative is one container labeled with the patient's name and designated transverse colon polyp. The specimen consists of two irregular fragments of light jay soft tissue that in aggregate measure 0.3 x 0.2 x 0.1 cm. The specimen is totally submitted in one cassette. / SJ:rg 02/29/20 TC:1 CPT: 36459 x3
--- NOTE | 2020-02-28 11:30 | IMM_PTH ---
PATIENT: SOL SIMPSON LOC: EN U#:[id number] AGE/SX: 44/F ROOM: RE02/28/[address]: Dr. Sage Tamez MD : 1975 BED: DIS: 02/28/2020 SPEC #: [id number] RECD: 02/29/20 09:40 STATUS: TYLER REJovana #: [id number] BRIAN: 02/28/20 11:[address]: Sage Tamez DEPT: IMMUNOHISTOCHEMISTRY RECD BY: Sharyn Lima ENTERED: 02/29/20 09:40 SP TYPE: IMMUNO OTHR DR: Dr. Jacek Lubin MD Tissues: A - Stomach, NOS Procedures: H Pylori (initial) PHYSICIAN & INSTITUTION [place] [address] SPECIMEN INFORMATION: Tissue Source: A - Antrum biopsy Clinical Info: Epigastric pain, heartburn, diarrhea Specimen Number: [id number] CPT code: 02135 METHODOLOGY: Deparaffinized sections of prefer/formalin-fixed tissue or PAP/DQ stained slides are incubated with monoclonal/polyclonal antibodies/oligonucleotide probes. Localization is made via biotin free immunoperoxidase method. Appropriate controls are performed and reacted as expected. Results on target cell population are indicated in the following table: RESULTS: ANTIBODY / CLONE RESULT Block A H Pylori (polyclonal) negative These tests were developed and their performance characteristics determined by [facility]. They may not have been cleared or approved by the U.S. Food and Drug Administration. The FDA has determined that such clearance or approval is not necessary. INTERPRETATION: A. Antrum, biopsy: Negative for Helicobacter pylori organisms. SJ:rolando 03/01/20
--- NOTE | 2020-02-28 11:57 | OP.CCLET_ITS ---
02/28/2020 Jacek Lubin Re : Upper GI endoscopy procedure for Anastasia Lewis Dear Amee This procedure was performed on Friday, February 28, 2020. My impressions and recommendations are as follows: Impressions : - Normal esophagus. - Z-line regular, 42 cm from the incisors. No specimens collected. - Gastritis. Biopsied. - Normal examined duodenum. No specimens collected. Recommendations : - Discharge patient to home. - Resume previous diet. - Continue present medications. - Await pathology results. - Repeat upper endoscopy (date not yet determined) for surveillance. - Return to my office in 1 week. My findings are described in the full procedure note, which is enclosed. If I can be of further assistance, please feel free to contact me at Doctor phone number(s): , Fax: [phone], Work: . Sincerely, MD Sage Park MD 02/28/2020 11:57:07 AM This report has been signed electronically.
--- NOTE | 2020-02-28 11:57 | OP.EGD_ITS ---
Patient Name: Anastasia Lewis Procedure Date: 02/28/2020 10:59 AM Date of : 1975 Age: 44 Procedure: Upper GI endoscopy Indications: Epigastric abdominal pain, Heartburn Providers: Sage Tamez MD Medicines: See the Anesthesia note for documentation of the administered medications Patient Profile: This is a 44 year old female. Refer to note in patient chart for documentation of history and physical. Complications: No immediate complications. Procedure: Pre-Anesthesia Assessment: - Prior to the procedure, a History and Physical was performed, and patient medications and allergies were reviewed. The patient's tolerance of previous anesthesia was also reviewed. The risks and benefits of the procedure and the sedation options and risks were discussed with the patient. All questions were answered, and informed consent was obtained. Prior Anticoagulants: The patient has taken no previous anticoagulant or antiplatelet agents. ASA Grade Assessment: II - A patient with mild systemic disease. After reviewing the risks and benefits, the patient was deemed in satisfactory condition to undergo the procedure. After obtaining informed consent, the endoscope was passed under direct vision. Throughout the procedure, the patient's blood pressure, pulse, and oxygen saturations were monitored continuously. The gastroscope was introduced through the mouth, and advanced to the second part of duodenum. The upper GI endoscopy was accomplished without difficulty. The patient tolerated the procedure well. Scope In: 11:33:55 AM Scope Out: 11:37:21 AM Total Procedure Duration Time 0 hours 3 minutes 26 seconds Findings: The examined esophagus was normal. The Z-line was regular and was found 42 cm from the incisors. No biopsies or other specimens were collected for this exam. Diffuse mild inflammation characterized by erythema was found in the prepyloric region of the stomach. Biopsies were taken with a cold forceps for Helicobacter pylori testing. The examined duodenum was normal. No biopsies or other specimens were collected for this exam. Impression: - Normal esophagus. - Z-line regular, 42 cm from the incisors. No specimens collected. - Gastritis. Biopsied. - Normal examined duodenum. No specimens collected. Recommendation: - Discharge patient to home. - Resume previous diet. - Continue present medications. - Await pathology results. - Repeat upper endoscopy (date not yet determined) for surveillance. - Return to my office in 1 week. Procedure Code(s): --- Professional --- 24560, Esophagogastroduodenoscopy, flexible, transoral; with biopsy, single or multiple Diagnosis Code(s): --- Professional --- K29.70, Gastritis, unspecified, without bleeding R10.13, Epigastric pain R12, Heartburn CPT copyright 2017 [employer]. All rights reserved. The codes documented in this report are preliminary and upon orthopedic coder review may be revised to meet current compliance requirements. MD Sage Park MD 02/28/2020 11:57:07 AM This report has been signed electronically. Number of Addenda: 0 Note Initiated On: 02/28/2020 10:59 AM
--- NOTE | 2020-02-28 11:59 | OP.COLON_ITS ---
Patient Name: Anastasia Lewis Procedure Date: 02/28/2020 11:37 AM Date of : 1975 Age: 44 Procedure: Colonoscopy Indications: Clinically significant diarrhea of unexplained origin Providers: Sage Tamez MD Medicines: See the Anesthesia note for documentation of the administered medications Patient Profile: This is a 44 year old female. Refer to note in patient chart for documentation of history and physical. Last Colonoscopy: none. The patient's first colonoscopy is today. Complications: No immediate complications. Procedure: Pre-Anesthesia Assessment: - Prior to the procedure, a History and Physical was performed, and patient medications and allergies were reviewed. The patient's tolerance of previous anesthesia was also reviewed. The risks and benefits of the procedure and the sedation options and risks were discussed with the patient. All questions were answered, and informed consent was obtained. Prior Anticoagulants: The patient has taken no previous anticoagulant or antiplatelet agents. ASA Grade Assessment: II - A patient with mild systemic disease. After reviewing the risks and benefits, the patient was deemed in satisfactory condition to undergo the procedure. After I obtained informed consent, the scope was passed under direct vision. Throughout the procedure, the patient's blood pressure, pulse, and oxygen saturations were monitored continuously. The adult colonoscope was introduced through the anus and advanced to the cecum, identified by appendiceal orifice and ileocecal valve. The colonoscopy was performed without difficulty. The patient tolerated the procedure well. The quality of the bowel preparation was excellent. Scope In: 11:39:16 AM Scope Withdrawal Time 0 hours 9 minutes 19 seconds Scope Out: 11:52:46 AM Total Procedure Duration Time 0 hours 13 minutes 30 seconds Findings: A 5 mm polyp was found in the proximal transverse colon. The polyp was sessile. The polyp was removed with a hot snare. Resection and retrieval were complete. The colon (entire examined portion) appeared normal. Biopsies for histology were taken with a cold forceps from the entire colon for evaluation of microscopic colitis. The exam was otherwise without abnormality on direct and retroflexion views. Impression: - One 5 mm polyp in the proximal transverse colon, removed with a hot snare. Resected and retrieved. - The entire examined colon is normal. Biopsied. - The examination was otherwise normal on direct and retroflexion views. Recommendation: - Discharge patient to home. - Resume previous diet. - Continue present medications. - Await pathology results. - Repeat colonoscopy in 5 years for surveillance. - Return to my office in 1 week. Procedure Code(s): --- Professional --- 00593, Colonoscopy, flexible; with removal of tumor(s), polyp(s), or other lesion(s) by snare technique 31105, 59, Colonoscopy, flexible; with biopsy, single or multiple Diagnosis Code(s): --- Professional --- D12.3, Benign neoplasm of transverse colon (hepatic flexure or splenic flexure) R19.7, Diarrhea, unspecified CPT copyright 2017 [employer]. All rights reserved. The codes documented in this report are preliminary and upon foundry worker review may be revised to meet current compliance requirements. MD Sage Park MD 02/28/2020 11:58:59 AM This report has been signed electronically. Number of Addenda: 0 Note Initiated On: 02/28/2020 11:37 AM
--- NOTE | 2020-02-28 11:59 | OP.CCLET_ITS ---
02/28/2020 Jacek Lubin Re : Colonoscopy procedure for Anastasia Lewis Dear Amee This procedure was performed on Friday, February 28, 2020. My impressions and recommendations are as follows: Impressions : - One 5 mm polyp in the proximal transverse colon, removed with a hot snare. Resected and retrieved. - The entire examined colon is normal. Biopsied. - The examination was otherwise normal on direct and retroflexion views. Recommendations : - Discharge patient to home. - Resume previous diet. - Continue present medications. - Await pathology results. - Repeat colonoscopy in 5 years for surveillance. - Return to my office in 1 week. My findings are described in the full procedure note, which is enclosed. If I can be of further assistance, please feel free to contact me at Doctor phone number(s): , Fax: [phone], Work: . Sincerely, MD Sage Park MD 02/28/2020 11:58:59 AM This report has been signed electronically.
[2020-02-28 12:05] VITALS: BP 108/79; BP 115/63; PULSE 69; RESP 16; O2SAT 95
[2020-02-28 12:08] VITALS: BP 102/77; BP 115/63; PULSE 67; RESP 16; TEMP 36.5; O2SAT 96
[2020-02-28 12:12] VITALS: BP 109/91; BP 115/63; PULSE 74; RESP 16; O2SAT 98
[2020-02-28 12:15] VITALS: BP 115/63; BP 116/85; BP 117/85; PULSE 64; PULSE 65; RESP 16; TEMP 36.3; O2SAT 94; O2SAT 96
[2020-02-28 12:54] VITALS: BP 115/63
== END 2020-02-28 12:59 | disposition home or self-care (01) ==
LOC: EN 10:26 → AC 10:28
PROVIDERS: Anesthesiology; PCP Family Medicine; Referring Provider Family Medicine; Visit Provider Surgery
PROC: 0DJD8ZZ Inspection of Lower Intestinal Tract, Via Natural or Artificial Opening Endoscopic (ICD-10-PCS; CPT 45378; principal; 2020-02-28 11:25)
DX: K29.70 Gastritis, unspecified, without bleeding (principal); D12.3 Benign neoplasm of transverse colon; R12 Heartburn; R19.7 Diarrhea, unspecified; I10 Essential (primary) hypertension; Z88.2 Allergy status to sulfonamides; Z79.899 Other long term (current) drug therapy; Z11.59 Encounter for screening for other viral diseases
CPT/HCPCS: 43239; 45380; 45385; 81025; 87635; 88305; 88342; G2023; J7120; J1610; J2405; U0003

== ENCOUNTER → 2020-03-20 10:22 | Outpatient (CLI) | payer OTHER, SELFPAY ==
[2020-03-20 10:19] VITALS: BMI 19.3
--- NOTE | 2020-03-20 10:22 | RAD_ITS ---
STUDY: X-RAY - LEFT ANKLE REASON FOR EXAM: Female, 44 years old. Twisted ankle yesterday, pain laterally TECHNIQUE: 3 view(s) of the ankle. COMPARISON: None. FINDINGS: Normal visualized distal tibia and fibula. Normal medial and lateral malleoli. Normal tibiotalar articulation and ankle mortise. Normal visualized talus and calcaneus. The visualized subtalar, talonavicular, calcaneocuboid and tarsal articulations are normal. The soft tissue structures are unremarkable. RAD/Ankle min 3 Views IMPRESSION: Normal x-ray examination of the ankle. Electronically Signed: Sami Gordon, at 10:49 EDT , Service support ,
== END ==
PROVIDERS: PCP Family Medicine; Referring Provider Physician Assistant Surgical; Visit Provider Physician Assistant Surgical
DX: S96.912A Strain of unspecified muscle and tendon at ankle and foot level, left foot, initial encounter (principal); X50.1XXA Overexertion from prolonged static or awkward postures, initial encounter
CPT/HCPCS: 73610

== ENCOUNTER → 2020-10-17 06:58 | Outpatient (CLI) | payer OTHER, SELFPAY ==
[2020-05-07 11:38] VITALS: BMI 19.2
--- NOTE | 2020-10-17 07:00 | BI_ITS ---
MAMMOGRAPHY - BILATERAL SCREENING REASON FOR EXAM: Female, 44 years old. Routine annual screening examination. PERTINENT HISTORY: Grandmother with breast cancer. Aunt with breast cancer. TECHNIQUE: Digital bilateral breast nicola (3D mammographic acquisition) in the CC and MLO projections. 2-D mediolateral oblique (MLO) and craniocaudad (CC) views of both breasts were obtained. CAD: Full Field Digital Mammography with Computer Added Detection was performed. COMPARISON: Comparison is made with prior study dated 09/23/2019 and 09/09/2018. FINDINGS: Breast Composition: The breasts are heterogeneously dense, which may obscure small masses. There are no dominant masses or suspicious calcifications. No other significant abnormalities are identified. There has been no significant change since the prior study. BI/SCRN MAMM (CAD)W/NICOLA BILAT IMPRESSION: Stable bilateral screening mammogram. Yearly follow-up mammogram recommended. (A) ASSESSMENT CATEGORY: BIRADS Category 1: Negative. A letter regarding these results will be sent to the patient by the facility within 30 days. Approximately 10% of breast cancers are not detected by mammography. A normal mammogram should not delay biopsy of a clinically suspicious abnormality. [id number] Electronically Signed: Sami Gordon MD at 8:36 EST , Service support ,
== END ==
PROVIDERS: PCP Family Medicine; Referring Provider Family Medicine; Visit Provider Family Medicine
DX: Z12.31 Encounter for screening mammogram for malignant neoplasm of breast (principal)
CPT/HCPCS: 77063; 77067

== ENCOUNTER 2020-10-20 09:35 | Emergency (ER) | payer OTHER, SELFPAY ==
[2020-05-07 11:38] VITALS: BMI 19.2
[2020-10-20 09:35] VITALS: BP 135/103; PULSE 90; RESP 18; TEMP 36.6; O2SAT 97; BMI 20.9
[2020-10-20] MEDS: proCHLORPERazine 10 MG/2 ML Vial IV (10:09)
[2020-10-20] MEDS: Ketorolac 15 MG/ML Vial IV (10:09)
[2020-10-20] MEDS: DiphenhydrAMINE 50 MG/ML Syringe 25 MG IV (10:09)
[2020-10-20] MEDS: 0.9% Normal Saline 1,000 ML 999 ML IV (10:09)
--- NOTE | 2020-10-20 10:11 | ED.VISSUMM ---
- ER Visit Summary Date of Service: 10/20/20 Chief Complaint: Headache History of Present Illness: The patient is a 44 F who presents with headache. She has a history of migraines. This has been going on for 11 days. She recently stopped her amitriptyline under her doctors care. She also reports increasing stress at work. She is having more frequent auras over the past year. She also says this migraine is more severe and longer lasting than her typical migraines. She tried Imitrex but it is not helping. No sudden onset, neurologic symptoms, trauma, blood thinner use, or focal neurologic abnormalities. She does complain of some nausea, vomiting, and dizziness. No other hearing changes. Physical Examination: Blood pressure 135/103. Otherwise vitals normal. Alert and oriented. No acute distress. Head and neck unremarkable. HEENT exam normal. Cranial nerves grossly intact. Normal strength and sensation. Skin appears normal. Test Results: None indicated Emergency Department Course and Treatment: Patient presents with acute recurrent headache. She was treated with Compazine, Benadryl, Toradol, and fluids. There is no indication for imaging or other diagnostic testing. Upon reevaluation, patient will be discharged when feeling better. Follow-up with primary care for more frequent and recurrent migraines. Return for any new or worsening issues. Treatment Plan: As above Disposition: Discharge Impression: Headache This note was generated with [employer] dictation software. It may contain incorrect words, spelling, and punctuation that were not noted in review of the chart prior to signing ED Disposition - Plan for ED Patient: Referrals: Jacek Lubin MD [Primary Care Provider] -
--- NOTE | 2020-10-20 10:13 | ED.DEP ---
ED Disposition - Plan for ED Patient: Instructions: ED, Migraine (Classical) Referrals: Jacek Lubin MD [Primary Care Provider] -
[2020-10-20 11:04] VITALS: BP 142/101; PULSE 67; RESP 15
== END 2020-10-20 11:07 | disposition home or self-care (01) ==
LOC: ED 10:23
PROVIDERS: Emergency Provider Emergency Medicine; PCP Family Medicine
DX: R51.9 Headache, unspecified (principal)
CPT/HCPCS: 96374; 96375; 99283; J7030

== ENCOUNTER 2021-05-17 15:45 | Emergency (ER) | payer OTHER, SELFPAY ==
[2021-05-17 15:46] VITALS: BP 153/103; PULSE 85; RESP 19; TEMP 36.3; O2SAT 99; BMI 19.2
[2021-05-17 16:57] VITALS: BP 147/106; PULSE 68; RESP 14; O2SAT 99
[2021-05-17 17:02] VITALS: BP 135/104; PULSE 75; RESP 16; TEMP 36.8; O2SAT 98
[2021-05-17] MEDS: 0.9% Normal Saline 1,000 ML 1000 ML IV (17:36)
[2021-05-17] MEDS: Ondansetron 4 MG/2 ML Vial IV (17:36)
[2021-05-17] MEDS: Acetaminophen 500 MG Tablet 1000 MG PO (17:51)
[2021-05-17 17:59] LABS: Anion Gap 3 (5-15); BUN 9 mg/dL (7-18); BUN/Creat Ratio 12.7 RATIO (10-20); Calcium,Total 9.1 mg/dL (8.5-10.1); Chloride 108 mmol/L (98-107); Creatinine, Serum 0.71 mg/dL (0.55-1.02); EST Glomerular Filtration Rate 95 mL/min (>60); Est Glom Filt Rate - Afr Amer 115 mL/min (>60); Glucose 91 mg/dL (74-106); Potassium 3.8 mmol/L (3.5-5.1); Sodium Level 140 mmol/L (136-145)
[2021-05-17 18:09] VITALS: BP 130/101; PULSE 72; RESP 19; O2SAT 99
[2021-05-17 18:09] LABS: Absolute Lymphocyte Count 1.66 X10^3/uL (0.83-4.51); Absolute Neutrophil Count 1.8 X10^3/uL (2.0-7.7); Basophil# 0.08 X10^3/uL; Eosinophil# 0.05 X10^3/uL; Eosinophils% 1.3 % (0-5); Hematocrit 45.9 % (37-47); Hemoglobin 14.5 g/dL (12.0-15.0); Lymphocyte # 1.66 X10^3/ul (0.83-4.51); Lymphocyte % 41.7 % (19-41); Mean Corp Hgb Conc 31.6 g/dL (32-36); Mean Corpuscular Hgb 29.2 pg (27.0-32.0); Mean Corpuscular Volume 92.4 fL (81-99); Mean Platelet Vol. 10.8 fl (6.2-12.0); Monocyte# 0.41 X10^3/uL; Monocyte% 10.3 % (0-10); NRBC Flagged by Analyzer 0 % (0-5); Neutrophil # 1.77 X10^3/uL (2.7-7.7); Neutrophil % 44.4 % (47-70); Platelet Count 267 K/mm3 (150-450); RBC Distribution Width CV 12.4 % (11.6-14.6); RBC Distribution Width SD 42.2 fl (35.1-43.9); Red Blood Count 4.97 M/mm3 (4.2-5.4)
--- NOTE | 2021-05-17 18:50 | EX.ED.DYSGE1 ---
HPI History of Present Illness Chief Complaint: General Illness Narrative Narrative: Patient presenting secondary to generalized illness. 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 Patient states that on Thursday she started to feel generally ill. Associated with body aches, generalized fatigue, nausea with no vomiting and its associated with some diarrhea. Patient denies that she has had fevers. She denies chest cough. No skin rashes. She had some decreased p.o. intake but she still able to keep down fluids. Patient does have a underlying history of some hypertension, she denies any history of lung disease or smoking. No chest pain. Review of systems otherwise negative. [facility] Medical History (Updated 05/17/21 @ 18:[address] Manny Dubose MD) Acute cholecystitis Age-related facial wrinkles Back problem Brow ptosis, bilateral Diarrhea Epigastric pain Forehead wrinkles Glabellar wrinkles History of blood transfusion Hypertension Migraines Skin cancer Home Medications sumatriptan succinate 50 mg tablet 50 mg PO .PRN tab 04/19/19 [History Last Taken Unknown] propranolol 60 mg tablet 60 mg PO HS tab 02/23/20 [History Last Taken Unknown] hydrocodone-acetaminophen 1 tab PO Q6H PRN PRN 10/20/20 [History Last Taken Unknown] celecoxib 200 mg capsule 200 mg PO DAILY #30 cap 04/29/21 [Rx Last Taken Unknown] Allergy/AdvReac Type Severity Reaction Status Date / Time betamethasone Allergy Unknown Verified 05/17/21 15:48 [From Celestone] betamethasone sodium Allergy Unknown Verified 05/17/21 15:48 phosphate [From Celestone] codeine Allergy Other Verified 05/17/21 15:48 Sulfa (Sulfonamide Allergy Other Verified 05/17/21 15:48 Antibiotics) Family History Other Arthritis Breast cancer Diabetes Heart disease High cholesterol Hypertension Surgical History History of laparoscopic cholecystectomy (~08/2018) Previous back surgery Social History Smoking Status: Never smoker alcohol intake: never substance use type: does not use additional social history: DOES NOT USE ASPIRIN DOES USE IBUPROFEN NEEDED ROS ROS ED Constitutional Constitutional ED: Reports chills and other Details: Malaise and generalized weakness ENT ENT ED: Denies rhinorrhea Cardiovascular Cardiovascular: Denies chest pain Respiratory/Chest Respiratory/Chest: Denies cough or dyspnea Gastrointestinal Gastrointestinal: Reports nausea Genitourinary Genitourinary ED: Denies dysuria or hematuria Musculoskeletal Musculoskeletal: Reports myalgias Integumentary Denies rash Neurologic Neurologic: Denies paresthesias or weakness Psychiatric Psychiatric: Denies depression Endocrine Endocrinology: Denies fatigue Allergic/Immunologic Allergic/Immunologic ED: Denies urticaria EXAM Physical Exam Const Vital Signs: 05/17/21 15:46 05/17/21 16:57 05/17/21 17:02 Temperature 97.4 F L 98.3 F Temperature Source Temporal Oral Pulse Rate 85 68 75 Respiratory Rate 19 H 14 16 Respiratory Effort Normal Respiratory Pattern Normal Blood Pressure 153/103 H 147/106 H 135/104 H Blood Pressure Mean 119 119 114 Pulse Ox 99 99 98 Oxygen Delivery Method Room Air Room Air Room Air 05/17/21 18:09 Temperature Temperature Source Pulse Rate 72 Respiratory Rate 19 H Respiratory Effort Respiratory Pattern Blood Pressure 130/101 H Blood Pressure Mean 110 Pulse Ox 99 Oxygen Delivery Method Room Air Positive well nourished and well developed Constitutional Narrative: Well-appearing age-appropriate female no acute distress sitting upright in the bed General Appearance ED: well developed and NAD HEENT Reports moist mucous membranes Negative for trauma or tenderness Eyes EOMs intact bilaterally Neck no lymphadenopathy, supple and no JVD Chest Wall inspection of chest normal Resp normal respiratory effort and clear to auscultation bilaterally Cardio regular rate, regular rhythm, no murmurs and peripheral pulses 2+ throughout GI normal to inspection, nondistended, normoactive bowel sounds, non-tender and no masses Palpation: soft Back/Spine normal to inspection Extremity normal to inspection General Extremety ED: Negative for tenderness Neuro oriented x3 and no sensory deficits noted Sensorium / Orientation: alert Motor Exam: strength 5/5 throughout Psych mental status grossly normal Skin no rashes or lesions noted MDM MDM MDM Narrative Medical decision making narrative: Patient presented with generalized illness. Coronavirus testing was obtained was found to be negative. Patient's lab work was unremarkable, she has elevation of her lymphocyte count depression of her neutrophil count. This points away from a coronavirus infection. Chemistry shows no signs of dehydration patient was given Zofran and liter of fluids had symptomatic improvement. Patient be discharged with a course of Zofran, she likely has a viral illness. She was given reassurance she understands signs and symptoms which to return. Lab Data Labs: Laboratory Results - last 24 hr 05/17/21 05/17/21 16:58 16:58 WBC 4.0 L RBC 4.97 Hgb 14.5 Hct 45.9 MCV 92.4 MCH 29.2 MCHC 31.6 L RDW Std Deviation 42.2 RDW Coeff of Nicolás 12.4 Plt Count 267 MPV 10.8 Immature Gran % (Auto) 0.300 Neut % (Auto) 44.4 L Lymph % (Auto) 41.7 H Aiken % (Auto) 10.3 H Eos % (Auto) 1.3 Baso % (Auto) 2.0 H Absolute Neuts (auto) 1.8 L Absolute Lymphs (auto) 1.66 Nucleated RBC % 0 Sodium 140 Potassium 3.8 Chloride 108 H Carbon Dioxide 29.0 Anion Gap 3 L BUN 9 Creatinine 0.71 Estim Creat Clear Calc 85.30 Est GFR (MDRD) Af Amer 115 Est GFR (MDRD) Non-Af 95 BUN/Creatinine Ratio 12.7 Glucose 91 Calcium 9.1 Discharge Plan Triage Chief Complaint: General Illness ED Provider: Manny Dubose Dx/Rx/DC Orders Clinical Impression: Viral illness Instructions: ED Viral Syndrome (Adult) Prescriptions: No Action sumatriptan succinate [Imitrex] 50 mg tablet 50 mg PO .PRN RF: 0 propranolol 60 mg tablet 60 mg PO HS RF: 0 celecoxib [Celebrex] 200 mg capsule 200 mg PO DAILY Qty: 30 RF: 0 hydrocodone-acetaminophen 1 TABLET tablet 1 tab PO Q6H PRN PRN (Reason: Pain) RF: 0 Primary Care Provider: Jacek Lubin Referrals: Jacek Lubin MD [Primary Care Provider] - 1 Week if not improving Disposition Disposition: Home, Self Care
[2021-05-17 19:02] VITALS: BP 131/97; PULSE 66; RESP 17; O2SAT 100
== END 2021-05-17 19:07 | disposition home or self-care (01) ==
PROVIDERS: Emergency Provider Emergency Medicine; PCP Family Medicine
DX: B34.9 Viral infection, unspecified (principal); I10 Essential (primary) hypertension; Z79.899 Other long term (current) drug therapy
CPT/HCPCS: 80048; 85025; 87426; 96361; 96374; 99285; J7030; J2405

== ENCOUNTER 2021-10-18 07:36 | Outpatient (CLI) | payer OTHER, SELFPAY ==
--- NOTE | 2021-10-18 07:39 | BI_ITS ---
MAMMOGRAPHY - BILATERAL SCREENING REASON FOR EXAM: Female, 45 years old. Routine annual screening examination. PERTINENT HISTORY: Grandmother with breast cancer. Aunt with breast cancer. TECHNIQUE: Digital bilateral breast nicola (3D mammographic acquisition) in the CC and MLO projections. 2-D mediolateral oblique (MLO) and craniocaudad (CC) views of both breasts were obtained. CAD: Full Field Digital Mammography with Computer Added Detection was performed. COMPARISON: Comparison is made with prior study dated 06/17/2021 and 09/23/2019. FINDINGS: Breast Composition: The breasts are extremely dense, which lowers the sensitivity of mammography. There are no dominant masses or suspicious calcifications. No other significant abnormalities are identified. There has been no significant change since the prior study. BI/SCRN MAMM (CAD)W/NICOLA BILAT IMPRESSION: Stable bilateral screening mammogram. Yearly follow-up mammogram recommended. (A) ASSESSMENT CATEGORY: BIRADS Category 1: Negative. A letter regarding these results will be sent to the patient by the facility within 30 days. Approximately 10% of breast cancers are not detected by mammography. A normal mammogram should not delay biopsy of a clinically suspicious abnormality. [id number] Electronically Signed: Sami Gordon MD at 8:27 EST ,
== END 2021-10-18 23:59 | disposition short-term general hospital (02) ==
LOC: OPBI 07:37
PROVIDERS: PCP Family Medicine; Referring Provider Family Medicine; Visit Provider Family Medicine
DX: Z12.31 Encounter for screening mammogram for malignant neoplasm of breast (principal)
CPT/HCPCS: 77063; 77067

== ENCOUNTER 2022-04-28 14:02 | Emergency (ER) | payer OTHER, SELFPAY ==
[2022-04-28 14:03] VITALS: BP 121/105; PULSE 85; RESP 16; TEMP 36.4; O2SAT 98; BMI 19.3
--- NOTE | 2022-04-28 15:15 | RAD_ITS ---
STUDY: X-RAY - LEFT WRIST REASON FOR EXAM: Female, 46 years old. Pain due to a fall. TECHNIQUE: 3 view(s) of the wrist were obtained. COMPARISON: None. FINDINGS: Normal visualized distal radius and ulna. Normal radiocarpal articulation. Normal distal radioulnar articulation. Normal carpal bones. Normal carpal articulations. Normal carpometacarpal articulation of the thumb. Normal second through fifth carpometacarpal articulations. Normal visualized metacarpal bones. The soft tissue structures are unremarkable. RAD/Wrist min 3 Views IMPRESSION: Normal x-ray examination of the wrist. Electronically Signed: Sami Gordon MD at 15:51 EDT ,
--- NOTE | 2022-04-28 15:15 | CT_ITS ---
STUDY: CT BRAIN WITHOUT CONTRAST REASON FOR EXAM: Female, 46 years old. Head injury due to a fall. RADIATION DOSAGE (If Supplied By Facility): CTDIvol = ( 47.06 ) mGy, DLP = ( 907.97 ) mGycm TECHNIQUE: Transaxial CT imaging of the brain was performed without administration of intravenous contrast material. Individualized dose optimization techniques were used for this CT. COMPARISON: No relevant priors. FINDINGS: Normal soft tissue structures. There is a 5.8 mm dense ossification arising from the inner table of the left frontal bone most likely represents a small osteoma. Normal size ventricles and extra-axial spaces for the patient''s age. Normal white matter tracts of the cerebral hemispheres. Normal basal ganglia and thalami. Normal brainstem. Normal cerebellum. There is no intracranial hemorrhage. There are no findings of an acute ischemic infarction. Normal visualized paranasal sinuses. CT/Brain/Head without Contrast IMPRESSION: No acute abnormality is seen. Electronically Signed: Sami Gordon MD at 15:43 EDT ,
--- NOTE | 2022-04-28 15:18 | EDS_ITS ---
HPI History of Present Illness Chief Complaint: Fall Informant: patient Narrative Narrative: Patient was running across a parking lot. She jumped down a wall that was about 2 feet. She states she landed and everything happened very quickly. But she did fall. She hit her head. She landed on her hand. She did not lose consciousness. But she does have some mild nausea that is improving. She also has a mild foggy feeling that is not normal for her. She also has left wrist pain. She has a slight amount of right knee pain. She has some slight abrasions. Motion makes her areas worse. She is not on significant anticoagulation. [facility] Medical History Acute cholecystitis Age-related facial wrinkles Back problem Brow ptosis, bilateral Contusion of left knee Contusion of right knee Diarrhea Epigastric pain Forehead wrinkles Glabellar wrinkles History of blood transfusion Hypertension Lumbar radiculopathy Lumbar strain Migraines Skin cancer Strain of right hip Strain of right knee Home Medications sumatriptan succinate 50 mg tablet (Imitrex) 50 mg PO .PRN 04/19/19 [History Last Taken Unknown] propranolol 60 mg tablet 60 mg PO HS 02/23/20 [History Last Taken Unknown] hydrocodone-acetaminophen 5-325mg 5mg-325mg 1 tab PO Q6H PRN PRN Pain 10/20/20 [History Last Taken Unknown] Allergy/AdvReac Type Severity Reaction Status Date / Time betamethasone Allergy Unknown Verified 04/28/22 14:06 [From Celestone] betamethasone sodium Allergy Unknown Verified 04/28/22 14:06 phosphate [From Celestone] codeine Allergy Other Verified 04/28/22 14:06 Sulfa (Sulfonamide Allergy Other Verified 04/28/22 14:06 Antibiotics) Family History Other Arthritis Breast cancer Diabetes Heart disease High cholesterol Hypertension Surgical History History of laparoscopic cholecystectomy (~08/2018) Previous back surgery S/P Botox injection Social History Smoking Status: Never smoker alcohol intake: never substance use type: does not use additional social history: DOES NOT USE ASPIRIN DOES USE IBUPROFEN NEEDED ROS ROS ED Constitutional Constitutional ED: Denies fever(s) Eyes Eyes: Denies change in vision ENT ENT ED: Reports other Details: Contusion left frontal ; Denies rhinorrhea Cardiovascular Cardiovascular: Denies chest pain Respiratory/Chest Respiratory/Chest: Denies cough Gastrointestinal Gastrointestinal: Reports nausea; Denies vomiting Musculoskeletal Musculoskeletal: Reports arthralgias Integumentary Reports Abrasions Neurologic Neurologic: Reports headache(s) and other Details: Has a nonspecific foggy feeling since hitting her head. Hematologic/Lymphatic Hematologic/Lymphatic: Denies easy bleeding or easy bruising Allergic/Immunologic Allergic/Immunologic ED: Denies urticaria EXAM Physical Exam Const Vital Signs: 04/28/22 14:03 04/28/22 15:47 04/28/22 15:47 Temperature 97.6 F L Temperature Source Temporal Pulse Rate 85 Respiratory Rate 16 Respiratory Effort Normal Non-Labored Normal Non-Labored Respiratory Depth Normal Respiratory Pattern Normal Normal Blood Pressure 121/105 H Blood Pressure Mean 110 Pulse Ox 98 Oxygen Delivery Method Room Air Room Air Positive well nourished and well developed General Appearance ED: well developed HEENT HEENT Narrative: Abrasions to forehead. No facial swelling. No epistaxis. Eyes PERRL and EOMs intact bilaterally Neck full ROM General: Negative for tenderness Chest Wall inspection of chest normal Resp normal respiratory effort and clear to auscultation bilaterally Cardio regular rhythm GI normal to inspection, nondistended, normoactive bowel sounds Back/Spine Back/Spine Narrative: No cervical, thoracic or lumbar tenderness. Extremity Extremity Narrative: Patient has several abrasions. These are on both feet slightly on the left knee and the larger one on the right knee patellar area. There is also a contusion on the proximal left thenar eminence. She does have some mild right patellar tenderness. There is also some tenderness to the left wrist and snuffbox area. No deformities are noted. Knee shows no joint line tenderness. There is no effusion. No instability. Extensor mechanism is intact. Neuro oriented x3 Sensorium / Orientation: alert; Negative for orientation impaired, lethargic or stuporous Psych mental status grossly normal and thought process normal Skin Trauma: abrasion MDM MDM MDM Narrative Medical decision making narrative: CT of the head and x-ray of the wrist were looked at by me and read by radiology as no acute process. I also looked at her 4 view x-ray of the right knee. I see no fracture or notable effusion.4 view x-ray of the right knee. I see no fracture or notable effusion. Plan will be to get her home. Ice and rest. Because she does have some tenderness near snuffbox we will also place the left wrist and thumb spica splint. Radiography Diagnostic Testing: Clinical Impression(s) from Imaging Studies Brain CT 04/28/22 15:15 IMPRESSION: No acute abnormality is seen. Electronically Signed: Sami Gordon MD at 15:43 EDT , Wrist X-Ray 04/28/22 15:15 IMPRESSION: Normal x-ray examination of the wrist. Electronically Signed: Sami Gordon MD at 15:51 EDT , Discharge Plan Triage Chief Complaint: Fall Other Complaint: Head Injury ED Provider: Luis Kearney Dx/Rx/DC Orders Clinical Impression: Fall from slip, trip, or stumble, Closed head injury, Left wrist sprain, Contusion of right knee, initial encounter Instructions: ED Head Injury (Adult), ED Wrist Sprain Prescriptions: No Action sumatriptan succinate [Imitrex] 50 mg tablet 50 mg PO .PRN propranolol 60 mg tablet 60 mg PO HS hydrocodone-acetaminophen 1 TABLET tablet 1 tab PO Q6H PRN PRN (Reason: Pain) Primary Care Provider: Jacek Lubin Referrals: Jacek Lubin MD [Primary Care Provider] - 1-2 Weeks Disposition Disposition: Home, Self Care
--- NOTE | 2022-04-28 15:37 | RAD_ITS ---
STUDY: X-RAY - RIGHT KNEE REASON FOR EXAM: Female, 46 years old. trauma TECHNIQUE: 4 view(s) of the knee. COMPARISON: Right knee 11/13/2021. FINDINGS: Normal visualized distal femur. Normal visualized proximal tibia and fibula. Normal proximal tibiofibular articulation. Normal medial femorotibial compartment. Normal lateral femorotibial compartment. Normal patellofemoral articulation. The soft tissue structures are unremarkable. RAD/Knee 4 or More Views IMPRESSION: Normal x-ray examination of the knee. Electronically Signed: Marc Florentino MD at 17:09 EDT ,
[2022-04-28 16:39] VITALS: PULSE 71; RESP 16; O2SAT 100
== END 2022-04-28 16:52 | disposition home or self-care (01) ==
PROVIDERS: Emergency Provider Emergency Medicine; PCP Family Medicine; Visit Provider Emergency Medicine
DX: S00.81XA Abrasion of other part of head, initial encounter (principal); S63.502A Unspecified sprain of left wrist, initial encounter; S80.01XA Contusion of right knee, initial encounter; W01.10XA Fall on same level from slipping, tripping and stumbling with subsequent striking against unspecified object, initial encounter; Y93.02 Activity, running; Y99.8 Other external cause status; I10 Essential (primary) hypertension; Z79.899 Other long term (current) drug therapy
CPT/HCPCS: 70450; 73110; 73564; 99284

== ENCOUNTER → 2022-08-04 | Outpatient (CLI) | payer OTHER, SELFPAY ==
[2022-08-04 10:20] LABS: Mucous, Urine 0 SEEN /hpf (<or=2+)
[2022-08-04 10:46] LABS: Color, Urine Yellow (Yellow); Glucose, Dipstick Normal (Normal); Ketone-Dipstick 5 mg/dl (Negative); Leukocyte Esterase-Dipstick 100 /ul (Negative); Nitrite-Dipstick Negative (Negative); Occult Blood-Urine 25 /ul (Negative); Protein-Dipstick Negative (Negative); Urine Bilirubin Dipstick Negative (Negative); Urine Clarity Sl. Cloudy (Clear); Urine Urobilinogen Normal (Normal)
[2022-08-04 10:58] LABS: Bacteria 1+ /hpf (None Seen); Red Blood Cells-Urine 0-5 SEEN /hpf (0-5); Squamous Epithelial Cells - UA 0-5 SEEN /hpf (5-10); White Blood Cells 10-25 SEEN /hpf (0-5)
== END | disposition home or self-care (01) ==
LOC: LABSPEC 09:52
PROVIDERS: PCP Family Medicine; Visit Provider Physician Assistant
DX: R30.9 Painful micturition, unspecified (principal)
CPT/HCPCS: 81001; 87077; 87086; 87088; 87186

== ENCOUNTER → 2022-09-24 | Outpatient (CLI) | payer OTHER, SELFPAY ==
[2022-09-24 15:26] LABS: Absolute Neutrophil Count 3.8 X10^3/uL (2.0-7.7); Basophil# 0.07 X10^3/uL; Basophil% 1.1 % (0-1); Eosinophil# 0.07 X10^3/uL; Eosinophils% 1.1 % (0-5); Hematocrit 41.9 % (37-47); Hemoglobin 13.5 g/dL (12.0-15.0); Lymphocyte % 30.8 % (19-41); Mean Corp Hgb Conc 32.2 g/dL (32-36); Mean Corpuscular Hgb 29.6 pg (27.0-32.0); Mean Corpuscular Volume 91.9 fL (81-99); Mean Platelet Vol. 9.9 fl (6.2-12.0); Monocyte# 0.57 X10^3/uL; Monocyte% 8.8 % (0-10); NRBC Flagged by Analyzer 0 % (0-5); Neutrophil # 3.76 X10^3/uL (2.7-7.7); Neutrophil % 57.7 % (47-70); Platelet Count 224 K/mm3 (150-450); RBC Distribution Width CV 13.1 % (11.6-14.6); RBC Distribution Width SD 44.2 fl (35.1-43.9); Red Blood Count 4.56 M/mm3 (4.2-5.4); White Blood Count 6.5 K/mm3 (4.4-11.0)
[2022-09-24 16:08] LABS: BUN 13 mg/dL (7-18); BUN/Creat Ratio 18.7 RATIO (10-20); Calcium,Total 9.1 mg/dL (8.5-10.1); Chloride 104 mmol/L (98-107); Creatinine, Serum 0.69 mg/dL (0.55-1.02); EST Glomerular Filtration Rate 96 mL/min (>60); Est Glom Filt Rate - Afr Amer 117 mL/min (>60); Glucose 101 mg/dL (74-106); Magnesium 2.3 mg/dL (1.6-2.6); Potassium 3.9 mmol/L (3.5-5.1); Sodium Level 136 mmol/L (136-145)
[2022-09-24 16:09] LABS: Anion Gap 2 (5-15); Thyroid Stim Hormone (TSH) 1.55 uIU/mL (0.358-3.74)
== END | disposition home or self-care (01) ==
LOC: LAB 15:09
PROVIDERS: PCP Family Medicine; Visit Provider Physician Assistant Medical
DX: R00.2 Palpitations (principal); R42 Dizziness and giddiness; R06.02 Shortness of breath; I10 Essential (primary) hypertension
CPT/HCPCS: 36415; 80048; 83735; 84443; 85025

== ENCOUNTER → 2022-09-30 | Outpatient (CLI) | payer OTHER, SELFPAY ==
--- NOTE | 2022-09-30 08:58 | ECHOD_ITS ---
Reason For Study: HTN Procedure This was a 2D Doppler, Color Flow transthoracic echocardiogram. Exam performed in department. Left Ventricle Normal LV size. Left ventricular systolic function is normal. The estimated ejection fraction is 60 %. Normal diastology for age. No regional wall motion abnormalities noted. Right Ventricle Normal RV size. Normal systolic function. Atria Normal left atrium. Normal right atrium. Mitral Valve Normal mitral valve. Tricuspid Valve Normal tricuspid valve. Aortic Valve Normal aortic valve. Trisinus/trileaflet aortic valve. Pulmonic Valve Normal pulmonic valve. Great Vessels Normal aortic root. The pulmonary artery is normal size. Normal inferior vena cava. Pericardium/Pleural No pericardial effusion. MMode/2D Measurements & Calculations LVIDd: 4.1 cm IVSd: 0.80 cm Ao root diam: 3.1 cm LVIDs: 2.6 cm LVPWd: 0.83 cm LA dimension: 2.8 cm RVDd: 2.5 cm FS: 35.8 % LAV(MOD-bp): 30.4 ml LA A4 area: 9.9 cm2 RA A4 area: 10.9 cm2 LAV(MOD-bp) Indexed: 18.8 ml/m2 LAV(MOD-sp2): 38.7 ml LAV(MOD-sp4): 20.2 ml Time Measurements MV dec time: 0.21 sec Doppler Measurements & Calculations MV E max albaro: 74.7 cm/sec Lat Peak E' Albaro: 12.4 cm/sec Med Peak E' Albaro: 9.5 cm/sec MV A max albaro: 55.7 cm/sec E/E' lat: 6.0 E/E' med: 7.8 MV E/A: 1.3 MV V2 max: 81.5 cm/sec MV P1/2t max albaro: 81.9 cm/sec Ao V2 max: 94.4 cm/sec MV max P.7 mmHg MV P1/2t: 69.1 msec Ao max P.6 mmHg MV V2 mean: 39.1 cm/sec MV dec slope: 346.9 cm/sec2 MV mean P.77 mmHg MVA(P1/2t): 3.2 cm2 MV V2 VTI: 24.8 cm LV V1 max: 93.5 cm/sec PA V2 max: 68.7 cm/sec LV V1 max P.5 mmHg LV V1 mean P.0 mmHg LV V1 mean: 67.8 cm/sec LV V1 VTI: 20.0 cm ECHO/Echo Complete Interpretation Summary Normal LV size. Left ventricular systolic function is normal. The estimated ejection fraction is 60 %. Normal diastology for age. Structurally normal valves. Ordering Physician: Page Galan Referring Physician: Jacek Lubin Performed By: Seamus Sanchez RCS
== END | disposition home or self-care (01) ==
LOC: CVS 08:56
PROVIDERS: PCP Family Medicine; Referring Provider Physician Assistant Medical; Visit Provider Physician Assistant Medical
DX: R00.2 Palpitations (principal); R42 Dizziness and giddiness; I10 Essential (primary) hypertension; R06.02 Shortness of breath
CPT/HCPCS: 93306

== ENCOUNTER 2022-10-26 15:18 | Emergency (ER) | payer OTHER, SELFPAY ==
[2022-10-26 15:19] VITALS: BP 136/97; PULSE 77; RESP 16; TEMP 36.2; O2SAT 99; BMI 20.1
--- NOTE | 2022-10-26 15:39 | EDS_ITS ---
HPI History of Present Illness Chief Complaint: Lower Extremity Injury Informant: patient Occured/Mechanism Comment: skiing, see below Onset/Context/Timing Onset: Yesterday Context: Sudden Onset Timing: Continuous Quality of Pain: Aching Location: R knee and down into ankle area Current Severity: Moderate Maximum Severity: Severe Worsened by: bending, walking/WBing Relieved by: rest, ice Associated Symptoms Associated Symptoms: Negative for Parasthesia or Weakness Narrative Narrative: Patient was skiing in [place] yesterday, she states she had a minor fall as a result of her skis crossing in her right ski was forcibly rotated before her foot came out of it and forced internal rotation, as the patient is descr ibing it to me. She felt a pop and immediate pain in the right knee and ankle area and has been having difficulty ever since. [facility] Medical History Acute cholecystitis Age-related facial wrinkles Back problem Brow ptosis, bilateral Contusion of left knee Contusion of right knee Diarrhea Epigastric pain Forehead wrinkles Glabellar wrinkles History of blood transfusion Hypertension Lumbar radiculopathy Lumbar strain Migraines Skin cancer Strain of right hip Strain of right knee UTI (urinary tract infection) Home Medications sumatriptan succinate 50 mg tablet (Imitrex) 50 mg PO .PRN 04/19/19 [History Last Taken Unknown] propranolol 60 mg tablet 60 mg PO HS 02/23/20 [History Last Taken Unknown] escitalopram oxalate 5 mg tablet 5 mg PO DAILY 09/24/22 [History Last Taken Unknown] meloxicam 15 mg tablet 15 mg PO DAILY #14 tabs 10/26/22 [Rx Last Taken Unknown] Allergy/AdvReac Type Severity Reaction Status Date / Time codeine Allergy Other Verified 10/26/22 15:19 Sulfa (Sulfonamide Allergy Other Verified 10/26/22 15:19 Antibiotics) Family History Other Arthritis Breast cancer Diabetes Heart disease High cholesterol Hypertension Surgical History History of laparoscopic cholecystectomy (~08/2018) Previous back surgery S/P Botox injection Social History Smoking Status: Never smoker alcohol intake: never substance use type: does not use additional social history: DOES NOT USE ASPIRIN DOES USE IBUPROFEN NEEDED ROS ROS ED Constitutional Constitutional ED: Denies chills or fever(s) Musculoskeletal Musculoskeletal: Reports extremity pain; Denies neck pain Integumentary Denies Abrasions, rash or wounds Neurologic Neurologic: Denies paresthesias or weakness EXAM Physical Exam Const Vital Signs: 10/26/22 15:19 Temperature 97.2 F L Temperature Source Temporal Pulse Rate 77 Respiratory Rate 16 Blood Pressure 136/97 H Blood Pressure Mean 110 Pulse Ox 99 Oxygen Delivery Method Room Air Positive well nourished and well developed General Appearance ED: well developed and NAD Neck full ROM and supple Back/Spine normal ROM and normal to inspection Extremity Extremity Narrative: Right knee effusion with associated mild anterior soft tissue tenderness. No bony tenderness. Very limited range of motion. Extensor mechanism is intact but she is not able to fully extend due to pain. She can flex about 20 degrees. There is pain with stressing the MCL but no significant laxity. She also has pain with posterior drawer but this is very limited since she is having trouble flexing. On attempting to perform anterior and posterior drawer signs/Douglas, she does not have any laxity in the joint seems stable. There is no excessive warmth and no erythema. With regard to the right ankle she has painless full range of motion, there is no bony tenderness throughout the right ankle or foot and no swelling to suggest an injury. Neurovascularly intact distally. Also can range her right hip without any pain in the groin. Neuro oriented x3, no focal motor deficits and no sensory deficits noted Sensorium / Orientation: alert Psych mental status grossly normal and thought process normal Skin no wounds Rashes: no rashes MDM MDM MDM Narrative Medical decision making narrative: 4 view x-ray series of the right knee were obtained, they are negative for any acute bony abnormality on my interpretation including fractures or dislocation. She does have an effusion. Radiology in agreement with this interpretation. High suspicion for an internal knee derangement of some sort here but her joint is stable and she does not require knee immobilizer right now. We will place her on anti-inflammatories, she is given an Gerard wrap and crutches here, and needs to follow-up with orthopedics in about a week. She is comfortable with that plan. Radiography Diagnostic Testing: Clinical Impression(s) from Imaging Studies Knee X-Ray 10/26/22 16:05 IMPRESSION: Suprapatellar joint effusion. There are no osseous abnormalities. Electronically Signed: Roque Pollard MD at 16:16 EST , Discharge Plan Triage Chief Complaint: Lower Extremity Injury ED Provider: Kirit Goldberg Dx/Rx/DC Orders Clinical Impression: Injury of knee, right Instructions: Reducing Knee Pain and Swelling Prescriptions: New meloxicam 15 mg tablet 15 mg PO DAILY Qty: 14 0RF No Action sumatriptan succinate [Imitrex] 50 mg tablet 50 mg PO .PRN propranolol 60 mg tablet 60 mg PO HS escitalopram oxalate 5 mg tablet 5 mg PO DAILY Label Comments: TAKE 1 TABLET BY MOUTH EVERY DAY Primary Care Provider: Jacek Lubin Referrals: Tyler López DO [Med Staff - Active Staff] - (5-10 days -- call for appt) Jacek Lubni MD [Primary Care Provider] - Disposition Disposition: Home, Self Care
--- NOTE | 2022-10-26 16:05 | RAD_ITS ---
EXAM: XR RIGHT KNEE COMPLETE, 4 OR MORE VIEWS CLINICAL INDICATION: injury TECHNIQUE: Four or more views of the right knee. This report was created using [employer] report generation technology. COMPARISON: 04/28/2022 FINDINGS: BONES/JOINTS: There is a small suprapatellar joint effusion. No acute fracture. No subluxation. Normal alignment. No sclerotic or destructive changes observed. SOFT TISSUES: Unremarkable. No soft tissue swelling or gas. No radiopaque foreign body. RAD/Knee 4 or More Views IMPRESSION: Suprapatellar joint effusion. There are no osseous abnormalities. Electronically Signed: Roque Pollard MD at 16:16 EST ,
== END 2022-10-26 16:33 | disposition home or self-care (01) ==
PROVIDERS: Emergency Provider Emergency Medicine; PCP Family Medicine; Visit Provider Emergency Medicine
DX: S80.911A Unspecified superficial injury of right knee, initial encounter (principal); W19.XXXA Unspecified fall, initial encounter; Y93.17 Activity, water skiing and wake boarding; I10 Essential (primary) hypertension; Z79.899 Other long term (current) drug therapy
CPT/HCPCS: 73564; 99283

== ENCOUNTER → 2022-10-28 | Outpatient (CLI) | payer OTHER, SELFPAY ==
--- NOTE | 2022-10-28 08:03 | MRI_ITS ---
STUDY: MRI RIGHT KNEE REASON FOR EXAM: Female, 46 years old. Skiing injury 4 days ago. [place] a pop. TECHNIQUE: Standardized fat and water weighted pulse sequences were obtained in all 3 orthogonal planes. COMPARISON: Knee x-rays dated October 26, 2022. FINDINGS: Normal medial meniscus. Normal hyaline cartilage of the medial femorotibial compartment. Normal medial femoral condyle and tibial plateau. Mild MCL sprain (coronal series 7 image 15). Normal distal semimembranosus, gracilis and semitendinosus tendons. Normal lateral meniscus. Normal hyaline cartilage of the lateral femorotibial compartment. Extensive subchondral bone marrow edema in the lateral tibial plateau with cortical disruption. Findings are compatible with a minimally displaced lateral tibial plateau fracture (sagittal series 5 images 4-10, coronal series 7 images 12-19). Normal proximal tibiofibular articulation. Normal lateral collateral (fibular) ligament. Normal popliteus tendon. Normal biceps femoris tendon. Normal anterior cruciate ligament (ACL). Normal posterior cruciate ligament (PCL). Normal congruent patellofemoral articulation. Normal hyaline cartilage of the patellofemoral compartment. Normal medial and lateral patellar retinaculum. Normal quadriceps tendon. Normal patellar tendon. Normal Hoffa''s fat pad. Large joint effusion with medial plica. Large septated dissecting popliteal cyst which has ruptured with resulting posterior compartmental edema (axial series 3 images 3-22). The soft tissues are unremarkable. The otherwise visualized osseous structures are unremarkable. MRI/Lower Ext Joint Only (Routine) IMPRESSION: Mild MCL sprain. Minimally displaced lateral tibial plateau fracture. Large joint effusion with medial plica. Large septated dissecting popliteal cyst with rupture and posterior compartmental edema. Electronically Signed: Kory Mccarty, at 12:30 EST ,
== END | disposition home or self-care (01) ==
PROVIDERS: PCP Family Medicine; Referring Provider Orthopaedic Surgery; Visit Provider Orthopaedic Surgery
DX: S82.121A Displaced fracture of lateral condyle of right tibia, initial encounter for closed fracture (principal); X58.XXXA Exposure to other specified factors, initial encounter; M25.361 Other instability, right knee; M67.51 Plica syndrome, right knee; M66.0 Rupture of popliteal cyst
CPT/HCPCS: 73721

== ENCOUNTER 2022-12-01 16:30 | Outpatient (RCR) | payer OTHER, SELFPAY ==
--- NOTE | 2022-11-17 16:05 | HP.PTEVAL ---
Patient's Visit Information SOL SIMPSON is a 46 year old F referred to Physical Therapy by Dr. Chele Villarreal DO with a diagnosis of R knee tibial plateau fracture.lateral. Date of Evaluation: 11/17/22 Physical Therapist: Kashif De, DPT, OCS, CSCS - Visit Plan Frequency: 2x /Week Duration: 2 Months Plan: 2x/week for 4-8 weeks for... Pt is TTWB with brace only until doc f/u mid November. Work on ROM A/PROM, quad stretch, patellar mobs, VASO and ice as needed. NWB strength adn ensure TTWB gait going well. Progress when allowed by doctor. - Subjective R knee 3 weeks ago skiing twisted knee in flexiona nd heard her pop and hurt immediately. Hobbled down the hill. Went home the next day and to ER to get crutches and x ray. Nothing briken but thought she tore stuff. Hooked up with [facility] and MRI and fractured tibia plateau. Injury was 10/25 adn doctor was 10/29. In a brace since NWB R with crutches. F/U showed some healing and remains NWB and crutches. Next f/u in three weeks so is NWB for at least 3 more. No exercises. No precautions except NWB. showers without brace. Hurts to bend but feels good. Still wonky looking. Pain comes and goes. Not unbearable. Hurts knee to peters when it does and is deep throb intermittently. Worse if accidentally twisted. Sleep is not a big problem. 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 has to be efficient with one trip to the hospital. hobbies:none. Basic ADLs getting done , living alone. mom does grocery shopping and laundry. Using back pack. Does curbs but not full steps exept porch with a railing. Doing this but it is scary. - Pain R knee pain. Pain Intensity (Out of 10): 2 Pain Intensity Range: 0, 5 - Objective Walks into PT with B crutches NWB R mod I. Trasnfer chair and table I. steps NWB R with one rail and one crutch shown today and able without hands on assist. Ambulate TTWB R per doctor note with verbal cues mod I with the cues and out without assist. Don and doff brace I, unlocked. ankle aROM B WFL and not painful, feels good to pump ankles. Knee AROM L 0-135, R -5 to 112. Pain at PROM 0 ext and end range PROM in medial knee. Hip aROM WFL B, able to SLR but has quad lag 5 degrees and no pain if keeps knee bent. abd and ext able without pain, 4- hip strength. quad and HS not tested. Sensation LE to gross light touch WNL B. Patella mobility fair R and good L. Swelling is as expected R LE knee down minimal. - Balance/Special Test Scores Lower Extremity Functional Score: 11 - Goals Goal 1:: ST: 0-135 AROM R knee without pain Goal Time Frame: 2-4 Weeks Goal 2:: ST: sleep without waking due to pain or edema Goal Time Frame: 2-4 Weeks Goal 3:: LT: Walk when allowed by doctor without AD I in community Goal Time Frame: 6-8 Weeks Goal 4:: Steps reciprocally without pain or rail to facilitate laundry/work Goal Time Frame: 6-8 Weeks Goal 5:: LEFS 70 Goal Time Frame: 6-8 Weeks - Rehabilitation Potential Physical Therapy Diagnosis: R kene tibial plateau fracture. Rehabilitation Potential: Good - Anticipated Interventions Patient/Client Instruction: Educate patient on: Condition, Plan of Care For the Purpose of:: To decrease pain, To decrease swelling/inflammation, To increase ROM, To improve nutrient delivery to tissue, To improve muscle performance and motor function, To increase tolerance to activity/condition/position, To improve ability of physical actions for home/community/work/leisure Therapeutic Exercise to Include: Strength training, Flexibilty training, Passive ROM, Active ROM For the Purpose of:: To decrease pain, To increase ROM, To improve nutrient delivery to tissue, To improve muscle performance and motor function, To increase tolerance to activity/condition/position, To improve ability of physical actions for home/community/work/leisure, To improve gait and locomotor functions Manual Therapy Techniques to Include: Passive ROM, Soft tissue mobilization For the Purpose of:: To decrease pain, To decrease swelling/inflammation, To increase ROM Cryotherapy (ice pack, ice massage): Yes Vasopneumatic device: Yes For the Purpose of:: To decrease pain, To decrease swelling/inflammation Thank you for the opportunity to evaluate your patient. For Medicare and Medicare HMO plans, please review the plan of care and approve it. It will need to be FAXED BACK to us at [phone] for Medicare purposes. For Medicare only, by signing this I certify the plan of care. Please let me know if there are questions or concerns regarding this plan of care. Physician Signature: Date:
--- NOTE | 2023-01-29 11:23 | HP.PTDCNRP_ITS ---
SOL SIMPSON was seen in my office for initial evaluation on 11/17/22. The following Plan of Care was established for this patient: Initial Frequency: 2x /Week Initial Duration: 2 Months Patient/Client Instruction: Educate patient on: Condition, Plan of Care For the Purpose of:: To decrease pain, To decrease swelling/inflammation, To increase ROM, To improve nutrient delivery to tissue, To improve muscle performance and motor function, To increase tolerance to activity/ condition/position, To improve ability of physical actions for home/community/work/leisure Therapeutic Exercise to Include: Strength training, Flexibilty training, Passive ROM, Active ROM For the Purpose of:: To decrease pain, To increase ROM, To improve nutrient delivery to tissue, To improve muscle performance and motor function, To increase tolerance to activity/condition/position, To improve ability of physical actions for home/community/work/leisure, To improve gait and locomotor functions Manual Therapy Techniques to Include: Passive ROM, Soft tissue mobilization For the Purpose of:: To decrease pain, To decrease swelling/inflammation, To increase ROM Cryotherapy (ice pack, ice massage): Yes Vasopneumatic device: Yes For the Purpose of:: To decrease pain, To decrease swelling/inflammation This patient was last seen in our office 12/01/22. Pertinent comments regarding their Physical therapy will appear below: Pt seen 3 visits of POC then no showed for her next visit and did not reschedule any further visits. At this point, it has been nearly two months and I will discontinue due to nonattendance. At this point I will be discontinuing this patient from physical therapy. I would be happy to see this patient again in the future if found appropriate by the physician. Thank you! Kashif De, DPT, OCS, CSCS Balance/Gait/Functional tests - Balance/Special Test Scores Lower Extremity Functional Score: 11
== END 2022-12-01 19:00 | disposition home or self-care (01) ==
LOC: PT 16:30
PROVIDERS: PCP Family Medicine; Referring Provider Orthopaedic Surgery; Visit Provider Orthopaedic Surgery
DX: S82.123D Displaced fracture of lateral condyle of unspecified tibia, subsequent encounter for closed fracture with routine healing (principal)
CPT/HCPCS: 97016; 97110; 97161

== ENCOUNTER 2025-05-28 08:30 | Emergency (ER) | payer BC, SELFPAY ==
[2025-05-28 08:30] VITALS: BP 109/87; PULSE 83; RESP 16; TEMP 36.8; O2SAT 100; BMI 21.4
--- NOTE | 2025-05-28 08:51 | CT_ITS ---
PROCEDURE: BRAIN/HEAD WITHOUT CONTRAST 05/28/2025 REASON FOR EXAM: PAIN TECHNIQUE: Procedure Code: CTBR Modality: CT Procedure: BRAIN/HEAD WITHOUT CONTRAST Coronal and Sagittal reconstruction series were provided. One or more dose reduction techniques were used (e.g., Automated exposure control, adjustment of the mA and/or kV according to patient size, use of iterative reconstruction technique. RADIATION DOSE SUMMARY: CTDlvol: 44 mGy DLP: 745 mGycm COMPARISON: 04/28/2022. FINDINGS: The ventricles are normal in size and midline in position. No evidence of acute hemorrhage or infarction. No extra-axial blood or fluid collections. The paranasal sinuses and mastoid air cells are clear. The calvarial vault and skull base are intact. Redemonstration of the small left frontal inner table osteoma. CT/Brain/Head without Contrast IMPRESSION: No acute intracranial abnormality. Reading Location: [id number]
--- NOTE | 2025-05-28 08:54 | EX.ED.VIS.HA ---
HPI History of Present Illness Chief Complaint: Headache Informant: patient Narrative Narrative: Patient is a 49-year-old female who presenting with going to the intractable headache/migraine. Patient states she has a longstanding history of migraines and follows with [facility] neurology. She notes for the past few months her headaches have really been out of control. She is using Imitrex frequently and it is not either helping or lasting very long. She most recently had Botox injection in her neck on May 10 which has helped with the neck component of the pain but she continues to have a lot of pain at the top of her head which is consistent with her migraines. She was on a Medrol Dosepak last week. She has had some associated nausea, vomiting and dizziness. She denies any numbness or tingling. Denies any fevers. Has some sound sensitivity but denies any significant light sensitivity. Denies any head trauma. States the characteristics of his headache are typical for her migraines but severity and duration of them is what is different. She states last time she had to come to the ER for headache was about 3 years ago. She states she has not had any recent neuroimaging in the past few years. At home does not have any relief with NSAIDs. Did not take anything besides Imitrex today for her headaches. No other complaints or concerns at this time. Prior similar symptoms: Yes PFSH [facility] Medical History UTI (urinary tract infection) Strain of right knee Contusion of right knee Contusion of left knee Strain of right hip Lumbar radiculopathy Lumbar strain Migraines Hypertension Diarrhea Epigastric pain Age-related facial wrinkles Brow ptosis, bilateral Forehead wrinkles Glabellar wrinkles Skin cancer History of blood transfusion Back problem Acute cholecystitis Home Medications ?Medication ?Instructions ?Recorded ?Last Taken ?Type sumatriptan succinate 50 mg tablet 50 mg PO .PRN 04/19/19 Unknown History (Imitrex) propranolol 60 mg tablet 60 mg PO HS 02/23/20 Unknown History escitalopram oxalate 5 mg tablet 5 mg PO DAILY 09/24/22 Unknown History etodolac 500 mg tablet 500 mg PO BID #60 tabs 10/27/22 Unknown Rx losartan 50 mg tablet 50 mg PO 10/27/22 Unknown History Allergy/AdvReac Type Severity Reaction Status Date / Time codeine Allergy Other Verified 05/28/25 08:30 Sulfa (Sulfonamide Allergy Other Verified 05/28/25 08:30 Antibiotics) Family History Other Arthritis Breast cancer Diabetes Heart disease High cholesterol Hypertension Surgical History S/P Botox injection Previous back surgery History of laparoscopic cholecystectomy (~08/2018) Social History Smoking Status: Never smoker alcohol intake: never substance use type: does not use additional social history: DOES NOT USE ASPIRIN DOES USE IBUPROFEN NEEDED ROS ROS ED Constitutional Constitutional ED: Denies chills or fever(s) Eyes Eyes: Denies blurry vision or diplopia Cardiovascular Cardiovascular: Denies chest pain Respiratory/Chest Respiratory/Chest: Denies cough Gastrointestinal Gastrointestinal: Reports nausea and vomiting; Denies abdominal pain Musculoskeletal Musculoskeletal: Denies arthralgias or myalgias Integumentary Denies rash Neurologic Neurologic: Reports headache(s); Denies paresthesias or weakness Psychiatric Psychiatric: Denies anxiety Hematologic/Lymphatic Hematologic/Lymphatic: Denies easy bleeding or easy bruising EXAM Physical Exam Const Vital Signs: 05/28/25 08:30 Temperature 98.2 F Temperature Source Temporal Pulse Rate 83 Respiratory Rate 16 Blood Pressure 109/87 H Blood Pressure Mean 94 Pulse Ox 100 Oxygen Delivery Method Room Air Positive well nourished and well developed General Appearance ED: well developed and NAD HEENT Reports normocephalic and TM's clear atraumatic Tympanic Membrane ED: Yes TM's clear Eyes PERRL and EOMs intact bilaterally Eyes Narrative: No nystagmus Neck supple Resp normal respiratory effort and clear to auscultation bilaterally Cardio regular rate and regular rhythm GI non-distended Extremity normal to inspection and full ROM Neuro oriented x3 and CN's II-XII intact bilaterally [place] Coma Scale: document GCS findings Spontaneous Obeys Commands Oriented 15 Sensorium / Orientation: awake and alert Coordination / Balance: [id number] test normal Motor Exam: strength 5/5 throughout Psych mental status grossly normal Skin Lesions: no lesions Rashes: no rashes MDM MDM MDM Narrative Medical decision making narrative: Patient evaluated for continued migraine. Does follow with neurology but headache has been intractable. She has normal neurologic exam. Meningeal signs. Differential includes intractable headache, intracranial hemorrhage or space-occupying lesion. She overall is well-appearing and nontoxic. Does not report a thunderclap headache or history consistent with a subarachnoid hemorrhage. Do not think she requires an LP at this time or CTA. Given worsening and increased frequency of her headaches will obtain CT of the brain to ensure that there is no subacute process going on mainly a space-occupying lesion. This is negative. No signs of obstructive hydrocephalus. Patient given IV fluids, Reglan and Toradol. On repeat evaluation she states she is starting feel much better. Is given a dose of Solu-Medrol and will be discharged home to continue to follow-up outpatient with neurology. Given return precautions. Discharged home in stable condition peer Radiography Diagnostic Testing: Clinical Impression(s) from Imaging Studies Brain CT 05/28/25 08:51 IMPRESSION: No acute intracranial abnormality. Reading Location: [address] Discharge Plan Triage Chief Complaint: Headache ED Provider: Shelia Garcia Dx/Rx/DC Orders Clinical Impression: Headache, migraine Instructions: ED, Migraine (Classical) Prescriptions: No Action sumatriptan succinate [Imitrex] 50 mg tablet 50 mg PO .PRN propranolol 60 mg tablet 60 mg PO HS escitalopram oxalate 5 mg tablet 5 mg PO DAILY Patient Comments: TAKE 1 TABLET BY MOUTH EVERY DAY losartan 50 mg tablet 50 mg PO Patient Comments: TAKE 1 TABLET BY MOUTH EVERY DAY etodolac 500 mg tablet 500 mg PO BID Qty: 60 0RF Primary Care Provider: Jacek Lubin Referrals: Jacek Lubin MD [Primary Care Provider] - Activity Restrictions/Additional Instructions: Please continue to follow-up outpatient with neurology. Your CT of the brain did not show any acute abnormalities Print Language: Hebrew Disposition Disposition: Home, Self Care
[2025-05-28] MEDS: 0.9% Normal Saline (1000mL) 1,000 ML 999 ML IV (09:00)
--- OUTSIDE RECORDS SUMMARY | 2025-05-28 09:24 | XMS RPT_ITS | CCD ---
Author Organization [facility] Care Team Providers Care [facility] Name Role Phone Jacek Scruggs MD Primary Care Provider Dr. Jacek Scruggs Primary Care Provider Sheba, Dr. Read Referring Provider MARANDA Lujan Attending Provider Jacek Scruggs MD Primary Care Provider Jacek Scruggs MD Primary Care Provider Dr. Jacek Scruggs Primary Care Provider Dr. Jacek Scruggs Referring Provider MARANDA Lujan Attending Provider Jacek Scruggs MD Primary Care Provider MARANDA Hernandez Attending Provider Dr. Trell Conn Attending Provider MARANDA Barba Attending Provider Dr. Chele Villarreal Attending Provider Dr. Jacek Scruggs Primary Care Provider Dr. Jacek Scruggs Referring Provider Dr. Chele Villarreal Attending Provider Dr. Trell Conn Attending Provider Jacek Scruggs Referring Unavailable Chele Villarreal Attending Unavailable Jacek Scruggs Primary Care Unavailable Jacek Scruggs Referring Unavailable Chele Villarreal Attending Unavailable Sheba, Jacek Primary Care Unavailable Senia, Trell Attending Unavailable Bratenahl, Jacek Primary Care Unavailable Page Barba Attending Unavail able Bratenahl, Jacek Primary Care Unavailable Bratenahl, Jacek Referring Unavailable Sheba, Jacek Referring Unavailable Borruso, Chele Attending Unavailable Sheba, Jacek Primary Care Unavailable Senia, [place] Attending Unavailable Sheba, Jacek Primary Care Unavailable Sheba, Jacek Referring Unavailable Borruso, Chele Attending Unavailable Bratenahl, Jacek Primary Care Unavailable Rafi Hernandez Attending Unavailable Bratenahl, Jacek Primary Care Unavailable Bratenahl, Jacek Referring Unavailable Russ Lujan Attending Unavailable Bratenahl, Jacek Primary Care Unavailable Page Barba Attending Unavail able Sheba, Jacek Primary Care Unavailable Page Barba Referring Unavail able Page Barba Attending Unavail able Sheba, Jacek Primary Care Unavailable Page Barba Referring Unavail able Senia, Trell Attending Unavailable Sheba, Jacek Primary Care Unavailable Dr. Kirit Goldberg Attending Unavailable Bratenahl, Jacek Primary Care Unavailable Luis Kearney Attending Unavailable Bratenahl, Jacek Primary Care Unavailable Borruso, Chele Referring Unavailable Borruso, Chele Attending Unavailable Sheba, Jacek Primary Care Unavailable Borruso, Chele Referring Unavailable Borruso, Chele Attending Unavailable Bratenahl, Jacek Primary Care Unavailable Sheba, Jacek Primary Care Unavailable SeniaYousuf loeraril Attending Unavailable Senia, Trell Attending Unavailable Bratenahl, Jacek Primary Care Unavailable Russ Lujan Attending Unavailable Bratenahl, Jacek Primary Care Unavailable Bratenahl, Jacek Referring Unavailable Bratenahl Jacek HOBSON Primary Care Provider Haagen ASSOCIATE TECHNICIAN.Madelaine SHOOK Unavailable Suppan ASSOCIATE TECHNICIAN.BOONE, Coby A Unavailable Suppan ASSOCIATE TECHNICIAN.BOONE, Coby A Unavailable [phone] Suppan ASSOCIATE TECHNICIAN.BOONE, Coby A Unavailable GYPSY AGRAWAL Attending UnavailQUIN Blankenship Referring Unavailable SHEBAJACEK Primary Care Unavailable SHEBA, JACEK Rashid Primary Care Unavailable ADRIAN REECE Attending Unavailable SHEBAJACEK J Primary Care Unavailable SHEBAJACEK Attending Unavailable SHEBA, JACEK J Primary Care Unavailable ROBYN HARRIS Attending Unavailable ROBYN HARRIS Referring Unavailable SHEBA, JACEK Rashid Primary Care Unavailable JUDITH NEWMAN Attending Unavailable SHEBA, JACEK Rashid Primary Care Unavailable DILLON KIM Referring Unavailable SHEBA, JACEK Rashid Primary Care Unavailable SHEBA, JACEK Rashid Primary Care Unavailable SHEBA, JACEK Rashid Referring Unavailable ROBYN HARRIS Attending Unavailable SHEBA, JACEK Rashid Primary Care Unavailable SHEBA, JACEK Rashid Referring Unavailable SHEBA, JACEK Rashid Primary Care Unavailable SHEBA, JACEK Rashid Attending Unavailable SHEBA, JACEK Rashid Primary Care Unavailable MALOU BAEZ Attending Unavailable ROBYN HARRIS Referring Unavailable SHEBA, JACEK Rashid Primary Care Unavailable SHEBA, JACEK Rashid Referring Unavailable QUIN MENDEZ Attending Unavailable COBY SOTELO Attending Unavailable SHEBA, JACEK Rashid Primary Care Unavailable SHEBA, JACEK Rashid Primary Care Unavailable SHEBA, JACEK Rasihd Attending Unavailable SHEBA, JACEK Rashid Primary Care Unavailable ROBYN HARRIS Attending Unavailable ROBYN HARRIS Referring Unavailable QUEENROBYN MONTES Attending Unavailable SHEBA, JACEK Rashid Primary Care Unavailable SHEBA, JACEK Rashid Attending Unavailable SHEBA, JACEK Rashid Primary Care Unavailable ROBYN HARRIS Attending Unavailable SHEBA, JACEK Rashid Primary Care Unavailable SHEBA, JACEK Rashid Primary Care Unavailable SHEBA, JACEK Rashid Referring Unavailable SHEBA, JACEK Rashid Primary Care Unavailable SHEBA, JACEK Rashid Attending Unavailable SELF Referring Unavailable SHEBA, JACEK Rashid Primary Care Unavailable SHEBA, JACEK Rashid Referring Unavailable Allergies Allergy Classification Reported Allergen(s) Allergy Type Date of Onset Reaction(s) Facility Anti-Epileptic Agents (1 source) gabapentin Drug Allergy 02-10-20 14 Other: See Comments [facility] Corticosteroids (1 source) Betamethasone Drug Allergy 12-20-19 11 Other: See Comments [facility] Work Phone: Opioid Agonists (1 source) Codeine Drug Allergy 07-01-20 04 [facility] Sulfonamides (antibiotic) (1 source) Sulfonamides (Antibiotic) Drug Allergy 07-01-20 04 [facility] (20 sources) Betamethasone; Translations: [BETAMETHASONE SODIUM PHOSPHATE] Drug Allergy 12-20-19 11 Other: See Comments [facility] Work Phone: (20 sources) Codeine; Translations: [CODEINE] Drug Allergy 07-01-20 04 Other [facility] (20 sources) gabapentin; Translations: [GABAPENTIN] Drug Allergy 02-10-20 14 Other: See Comments [facility] (20 sources) Sulfonamides (Antibiotic); Translations: [SULFA (SULFONAMIDE ANTIBIOTICS)] Propensity to adverse reactions 07-01-20 04 Other [facility] (3 sources) Betamethasone Drug Allergy 04-28-20 22 Unknown [facility] (5 sources) Sulfonamides (Antibiotic) Allergy to substance 04-28-20 22 Other [facility] (1 source) Betamethasone Drug Allergy 04-28-20 22 [facility] Repository (1 source) Betamethasone Drug Allergy 04-28-20 22 [facility] Rep[facility] (1 source) Codeine Drug Allergy 12-04-19 23 [facility] (1 source) Sulfonamides (Antibiotic) Drug allergy (disorder) 12-04-19 23 [facility] (20 sources) galcanezumab; Translations: [GALCANEZUMAB-GNL M] Drug Allergy 09-02-20 24 Hives [facility] Medications Current Medications Medication Drug Class(es) Dates Sig (Normalized) Sig (Original) acetaminophen 325 mg / HYDROcodone bitartrate 5 mg oral tablet (20 sources) Opioid Agonist Start: 11-06-2021 End: 06-02-2025 take 1 tablet by mouth every six hours as needed HYDROcodone-aceta minophen (NORCO) 5-325 mg per tablet Indications: DDD (degenerative disc disease), lumbar Take 1 tablet by mouth every 6 hours as needed for up to 30 days. 60 tablet 05/03/2025 06/02/2025 Active Start: 10-20-2020 End: 09-24-2022 take 1 tablet by mouth every six hours as needed Hydrocodone-Acetaminophen Discontinued 1 TABLET PO EVERY 6 HOURS NEEDED October 20, 2020 1:00am September 24, 2022 2:53pm Start: 10-02-2014 End: 04-19-2019 take 2 tablets by mouth at bedtime Hydrocodone-Acetaminophen Discontinued 2 TABLET PO AT BEDTIME October 02, 2014 1:00am April 19, 2019 1:59pm Comment on above: Take 1 tablet by ana laura th every 6 hours as needed for up to 31 days. Take 1 tablet by ana laura th every 6 hours as needed for up to 31 days. Do not start before December 04, 2021. Take 1 tablet by ana laura th every 6 hours as needed for up to 31 days. Do not start before May 03, 2022. cyclobenzaprine hydrochloride 10 mg oral tablet (20 sources) Muscle Relaxant Start: 07-28-20 End: 08-07-20 take 1 tablet by mouth every twelve hours as needed for pain and pain cyclobenzaprine (FLEXERIL) 10 mg tablet Indications: Pain Take 1 tablet by mouth two times a day as needed for muscle spasm for up to 10 days. 20 tablet 07/28/2024 08/07/2024 Active Start: 07-25-2023 End: 05-02-2024 take 1 tablet by mouth every eight hours as needed cyclobenzaprine (FLEXERIL) 10 mg tablet Take 1 tablet by mouth three times a day as needed for muscle spasm. 12 tablet 07/25/2023 05/02/2024 Discontinued Start: 09-03-2022 End: 09-24-2022 take 5 mg by mouth three times daily Cyclobenzaprine Discontinued 5 MG PO THREE TIMES A DAY September 03, 2022 1:00am September 24, 2022 2:53pm Comment on above: Take 1 tablet by ana laura th three times a day as needed for muscle spasm. enteric contrast (will be provided with radiology test) (3 sources) Start: 4 End: 4 enteric contrast (will be provided with radiology test) For CT ABD/PEL W IVCON Routine order Administer, As Directed One Time Only, via Oral, Rectal, both Oral and Rectal, Enteric Tube, Stoma or Indwelling Catheter, Enteric Contrast as designated per enteric contrast guidelines 1 Each 0 03/07/2024 03/08/2024 Active 84 hr estradiol 0.90054 mg/hr transdermal system (18 sources) Estrogen Start: 5 estradiol (MINIVELLE, VIVELLE-DOT) 0.0375 mg/24 hr patch Apply 1 patch as directed two times a week. 01/09/2025 Active etodolac 500 mg oral tablet (2 sources) Nonsteroidal Anti-inflammatory Drug Start: 3 take 500 mg by mouth twice daily Etodolac Active 500 MG PO TWICE A DAY 60 October 27, 2022 1:00am famotidine 20 mg oral tablet (20 sources) Histamine-2 Receptor Antagonist Start: 3 End: 05-13-202 5 take 1 tablet by mouth every twenty-four hours as needed famotidine (PEPCID) 20 mg tablet Take 1 tablet by mouth at bedtime as needed. 90 tablet 1 11/14/2024 Active Start: 09-03-2022 End: 09-24-2022 Famotidine Discontinued 20 M G PO September 03, 2022 1:00am September 24, 2022 2:53pm Start: 02-19-2022 End: 07-04-2022 take 1 tablet by mouth at bedtime as needed famotidine (PEPCID) 20 mg tablet Indications: GERD without esophagitis Take 1 tablet by mouth at bedtime as needed. 30 tablet 02/19/2022 07/04/2022 Discontinued Start: 02-19-2022 End: 12-31-2022 take 1 tablet by mouth once daily famotidine (PEPCID) 20 mg tablet Indications: GERD without esophagitis Take 1 tablet by mouth once daily. 90 tablet 1 07/04/2022 10/14/2022 Discontinued Start: 01-01-2022 take 1 tablet by ana laura th at bedtime as needed famotidine (PEPCID) 20 mg tablet Indications: GERD without esophagitis Take 1 tablet by mouth at bedtime as needed. 30 tablet 0 01/01/2022 Active Comment on above: Take 1 tablet by ana laura th at bedtime as needed. Take 1 tablet by ana laura th once daily. Take 1 tablet by ana laura th twice daily. iv contrast (will be provided with radiology test) (3 sources) Start: 03-07-20 End: 03-08-20 iv contrast (will be provided with radiology test) CT ABD/PEL -Inject, intravenously, once for 1 dose.No IV access, insert saline lock prior to the beginning of sedation, infusion, injection of imaging exam. Discontinue saline lock post exam. If Pt. has a central line or IVAD, may access for administration according to line specific nursing protocol. Once exam is complete flush line and de-access according to line specific nursing protocol in the CT contrast administration guidelines link. 1 Each 0 03/07/2024 03/08/2024 Active methylPREDNISolone (2 sources) Corticosteroid Start: 10-05-19 End: 10-11-19 methylPREDNISolone (MEDROL, YAKELIN,) 4 mg Dose-Pack Take as directed 21 tablet 10/05/2024 10/11/2024 Active mometasone furoate 1 mg/ml topical cream (20 sources) Corticosteroid Start: 11-29-19 mometasone (ELOCON) 0.1 % cream Apply 1 application to affected area once daily. 45 g 11/28/2024 Active Start: 03-03-2022 End: 05-02-2024 mometasone (ELOCON) 0.1 % cr eam Indications: Dermatitis Apply 1 application to affected area once daily. 45 g 03/03/2022 05/02/2024 Discontinued Comment on above: Apply 1 application to affected area once daily. nitrofurantoin, macrocrystals 25 mg / nitrofurantoin, monohydrate 75 mg oral capsule (13 sources) Nitrofuran Antibacterial Start: 03-05-20 End: 03-10-20 take 1 capsule by mouth twice daily nitrofurantoin monohydrate and macrocrystal (MACROBID) 100 mg capsule Indications: Urinary frequency Take 1 capsule by mouth two times a day for 5 days. 10 capsule 0 03/05/2024 03/10/2024 Active Start: 08-04-2022 End: 08-06-2022 take 1 capsule by mouth every twelve hours at mealtime Nitrofurantoin Monohyd/M-Cryst (Macrobid) 100 mg capsule Discontinued 100 MG PO Q12H 10 5 August 04, 2022 1:00am August 06, 2022 4:54pm must administer with a meal/food omeprazole 20 mg delayed release oral capsule (20 sources) Proton Pump Inhibitor Start: 03-01-2024 End: 12-12-2024 take 1 capsule by mouth once daily before breakfast omeprazole (PRILOSEC) 20 mg capsule Indications: Gastroesophageal reflux disease without esophagitis Take 1 capsule by mouth daily before breakfast. 1/2 hr before meal. 90 capsule 3 12/12/2024 Active ondansetron 4 mg disintegrating oral tablet (20 sources) Serotonin-3 Receptor Antagonist Start: 01-12-2025 End: 05-03-2025 take 1 tablet by mouth every six hours as needed for nausea ondansetron orally disintegrating (ZOFRAN ODT) 4 mg disintegrating tablet Indications: DDD (degenerative disc disease), lumbar Take 1 tablet by mouth every 6 hours as needed for nausea/vomiting. 20 tablet 1 05/03/2025 Active Start: 08-24-2024 End: 09-28-2024 take 1 tablet by mouth every six hours as needed ondansetron orally disintegrating (ZOFRAN ODT) 4 mg disintegrating tablet Take 1 tablet by mouth every 6 hours as needed for nausea/vomiting. 20 tablet 1 09/28/2024 Active Start: 03-07-2024 End: 07-28-2024 take 1 tablet by mouth every six hours as needed ondansetron orally disintegrating (ZOFRAN ODT) 4 mg disintegrating tablet Take 1 tablet by mouth every 6 hours as needed for nausea/vomiting. 20 tablet 03/07/2024 07/28/2024 Discontinued (Course of therapy completed) Start: 11-06-2021 End: 10-14-2022 take 1 tablet by mouth every six hours as needed for nausea ondansetron orally disintegrating (ZOFRAN ODT) 4 mg disintegrating tablet Indications: Other migraine without status migrainosus, not intractable Take 1 tablet by mouth every 6 hours as needed for nausea/vomiting. 20 tablet 11/06/2021 10/14/2022 Discontinued Comment on above: Take 1 tablet by ana laura every 6 hours as needed for nausea/vomiting. polyethylene glycol 3350 143702 mg / potassium chloride 2970 mg / sodium bicarbonate 6740 mg / sodium chloride 5860 mg / sodium sulfate 91920 mg powder for oral solution (1 source) Osmotic Laxative Start: 01-23-2025 End: 01-23-2025 peg 3350-Electrolytes (GOLYTELY) 236-22.74-6.74 -5.86 gram suspension Indications: History of colonic polyps Take 4,000 mL by mouth one time only for 1 dose. Refer to printed prep instructions from your provider. 4000 mL 01/23/2025 01/23/2025 Active predniSONE 10 mg oral tablet (9 sources) Start: 07-28-2024 End: 08-06-2024 predniSONE (DELTASONE) 10 mg tablet Indications: Pain Take 4 tabs daily for 3 days, then 2 tabs daily for 3 days, then 1 tab daily for 3 days with food. 21 tablet 07/28/2024 08/06/2024 Active Start: 07-25-2023 End: 08-06-2023 predniSONE (DELTASONE) 10 mg tablet Take 4 tabs daily x 3 days, then 3 tabs x 3 days, 2 tabs x 3 days, then 1 tab x3 days with food. 30 tablet 07/25/2023 08/06/2023 Comment on above: Take 4 tabs daily x 3 days, then 3 tabs x 3 days, 2 tabs x 3 days, then 1 tab x3 days with food. progesterone 100 mg oral capsule (18 sources) Progesterone Start: 01-10-20 take 1 capsule by mouth once daily progesterone micronized (PROMETRIUM) 100 mg capsule Take 100 mg by mouth once daily. 01/09/2025 Active 24 hr propranolol hydrochloride 60 mg extended release oral capsule (20 sources) beta-Adrenergic Rhea Start: 07-05-20 End: 04-04-20 take 1 capsule by mouth once daily propranolol ER (INDERAL LA) 60 mg 24 hr capsule Indications: Other migraine without status migrainosus, not intractable Take 1 capsule by mouth once daily. 30 capsule 04/04/2025 Active Start: 02-23-2020 take 60 mg by mouth at bedtime Propranolol Active 60 MG PO BEDTIME February 23, 2020 12:00am Comment on above: Take 1 capsule by [facility] once daily. sennosides, nursing home 8.6 mg oral tablet (20 sources) Start: 09-07-20 SENNOSIDES 8.6 MG TAB as needed for constipation 0 09/07/2009 Active Comment on above: as needed for consti pation SUMAtriptan 100 mg oral tablet (20 sources) Serotonin-1b and Serotonin-1d Receptor Agonist Start: 06-23-20 End: 02-17-20 take 1 tablet by mouth once daily as needed for headache SUMAtriptan (IMITREX) 100 mg tablet Indications: Other migraine without status migrainosus, not intractable Take 1 tablet by mouth once daily as needed for migraine headache (see administration instructions) (may repeat once in 24 hours.). 9 tablet 11 02/16/2025 02/16/2026 Active Start: 09-04-2021 End: 04-09-2023 SUMAtriptan (IMITREX) 100 mg tablet Indications: Other migraine without status migrainosus, not intractable Take 1 tablet by mouth as needed. 9 tablet 3 01/24/2022 05/22/2022 Discontinued Start: 04-19-2019 Sumatriptan Kendrick ccinate (Imitrex) 50 mg tablet Active 50 MG PO .PRN April 19, 2019 12:00am Comment on above: Take 1 tablet by ana laura th as needed. Take 1 tablet (100 m g) by mouth as needed. valACYclovir 1000 mg oral tablet (20 sources) Herpesvirus Nucleoside Analog DNA Polymerase Inhibitor, Herpes Simplex Virus Nucleoside Analog DNA Polymerase Inhibitor, Herpes Zoster Virus Nucleoside Analog DNA Polymerase Inhibitor Start: End: take 1 tablet by mouth twice daily valACYclovir (VALTREX) 1 gram tablet Take 1 tablet by mouth two times a day. 2 tablet 3 03/02/2025 Active Comment on above: Take 1 tablet by ana laura th two times a day. Completed/Discontinued Medications Medication Drug Class(es) Dates Sig (Normalized) Sig (Original) atogepant (QULIPTA) 60 mg tablet (4 sources) Start: 09-02-2024 End: 09-19-2024 take 1 tablet by mouth once daily atogepant (QULIPTA) 60 mg tablet Take 1 tablet (60 mg) by mouth once daily. 30 tablet 2 09/02/2024 09/19/2024 Discontinued Start: 09-02-2024 take 1 tablet by ana laura th once daily atogepant (QULIPTA) 60 mg tablet Take 1 tablet (60 mg) by mouth once daily. 30 tablet 2 09/02/2024 Active onabotulinumtoxina 200 unt injection (10 sources) Acetylcholine Release Inhibitor Start: 05-10-2025 End: 05-10-2025 onabotulinum toxin type A 200 Units injection (BOTOX) Start: 05-10-2025 End: 05-10-2025 inject 1 dose by intramuscular injection once 200 Units, INTRAMUSCULAR, ONCE, 1 dose, On Thu05/10/25 at 1530, This record documents the total dose provided to patient. See progress note for specific locations and amounts administered. Start: 04-25-2025 onabotulinum t oxin type A (BOTOX) 200 unit injection Inject 200 Units intramuscularly every 12 weeks. 1 each 5 04/25/2025 Active Start: 04-19-2025 inject 200 [IU] by i ntramuscular injection every three months onabotulinum toxin type A (BOTOX) 100 unit solr Inject 200 Units intramuscularly every 3 months. 2 each 4 04/19/2025 Active Start: 01-25-2025 End: 01-25-2025 inject 1 dose by intramuscular injection every 30 days 155 Units, INTRAMUSCULAR, ONCE (UP TO 30 DAYS AMB), 1 dose, On Thu01/25/25 at 1800, This record documents the total dose provided to patient. See progress note for specific locations and amounts administered. REFRIGERATE - Pharmaceutical Waste: Lab Pack - Start: 01-25-2025 End: 01-25-2025 onabotulinum toxin type A 15 5 Units injection (BOTOX) Start: 10-21-2024 End: 10-21-2024 onabotulinum toxin type A 20 0 Units injection (BOTOX) Start: 10-21-2024 End: 10-21-2024 inject 1 dose by intramuscular injection once 200 Units, INTRAMUSCULAR, ONCE, 1 dose, On Thu10/21/24 at 1600, This record documents the total dose provided to patient. See progress note for specific locations and amounts administered. calcium chloride 0.0014 meq/ ml / potassium chloride 0.004 meq/ml / sodium chloride 0.103 meq/ml / sodium lactate 0.028 meq/ml injectable solution (2 sources) Start: 03-03-2025 End: 03-03-2025 500 mL, INTRAVENOUS, at 999 mL/hr, Administer over 0.5 Hours, ONCE, 1 dose, On Thu03/03/25 at 1230, Recovery or Phase I (only) Start: 03-03-2025 End: 03-03-2025 take 30 mL intravenously every hour 30 mL/hr, INTRAVENOUS, CONTINUOUS, Starting on Thu03/03/25 at 0630, Until Thu03/03/25 at 0709, Preprocedure cholestyramine resin 4000 mg powder for oral suspension (6 sources) Bile Acid Sequestrant Start: 09-20-2018 End: 10-20-2018 take 1 dose by mouth twice daily Cholestyramine (With Sugar) Discontinued 4 GM PO TWICE A DAY 378 September 20, 2018 1:00am October 20, 2018 1:07am administer w/meal; avoid other meds within 1hr before or 4-6hr after dose ciprofloxacin 500 mg oral tablet (5 sources) Quinolone Antimicrobial Start: 08-06-2022 End: 09-03-2022 take 500 mg by mouth twice daily Ciprofloxacin Hcl Discontinued 500 MG PO TWICE A DAY August 06, 2022 1:00am September 03, 2022 10:16am COMPOUNDED PRESCRIPTION (20 sources) Start: 07-17-2017 End: 01-12-2023 COMPOUNDED PRESCRIPTION Indications: Screening for breast cancer Mammogram: screening 1 Each 07/17/2017 01/12/2023 Discontinued (Discontinued by Patient) Start: 07-17-2017 End: 01-12-2023 COMPOUNDED PRESCRIPTION Susan cations: Screening for breast cancer Mammogram: screening 1 Each 0 07/17/2017 01/12/2023 Discontinued (Discontinued by Patient) Start: 07-17-2017 COMPOUNDED PRE SCRIPTION Indications: Screening for breast cancer Mammogram: screening 1 Each 0 07/17/2017 Active Comment on above: Mammogram: screening escitalopram 5 mg oral tablet (20 sources) Serotonin Reuptake Inhibitor Start: 2021 End: 2024 take 1 tablet by mouth once daily, then take 1 tablet by mouth once daily, then take 2 tablets by mouth once daily escitalopram oxalate (LEXAPRO) 5 mg tablet Indications: Adjustment disorder with anxious mood Take 1 tablet by mouth once daily. Take 1 tab a day for one week and then increase to 2 tabs a day 90 tablet 3 01/18/2024 01/16/2025 Discontinued Comment on above: Take 1 tablet by ana laura th once daily. Take 1 tab a day for one week and then increase to 2 tabs a day Take 1 tablet by ana laura th once daily. Take 1 tab a day for one week and then increase to 2 tabs a day 1 ml galcanezumab-gnlm 120 mg/ml prefilled syringe (20 sources) Start: 2023 End: 2023 galcanezumab-gnln 120 mg/mL subcutaneous syringe (EMGALITY) Indications: Intractable chronic migraine with aura and without status migrainosus Inject 2 mL subcutaneously once every month. Do not shake. 2 mL 07/12/2024 09/02/2024 Discontinued 1 ml ketorolac tromethamine 30 mg/ml injection (5 sources) Nonsteroidal Anti-inflammatory Drug, Cyclooxygenase Inhibitor Start: 2024 End: 2024 inject 30 mg by intramuscular injection once keTORolac (TORADOL) 30 mg/mL (1 mL) danuta Indications: Migraine with aura, not intractable, without status migrainosus Inject 30 mg intramuscularly one time only for 1 dose. 1 mL 12/15/2024 12/15/2024 Discontinued (Discontinued by Patient) Start: 12-15-2024 End: 12-15-2024 keTORolac 30 mg injection (T oradol) Start: 12-15-2024 End: 12-15-2024 30 mg, INTRAVENOUS, ONCE, 1 dose, On Alejandra 12/15/24 at 1230, Ketorolac (Toradol) is indicated for the short-term (up to 5 days) management of moderately severe acute pain. Continuation of ketorolac (Toradol) beyond 5 days increases the risk of developing serious adverse events. Please verify the duration of therapy for ketorolac (Toradol) Start: 07-25-2023 End: 07-25-2023 keTORolac 60 mg injection (T oradol) losartan potassium 50 mg oral tablet (15 sources) Angiotensin 2 Receptor Rhea Start: 10-14-2022 End: 10-14-2023 take 1 tablet by mouth once daily losartan (COZAAR) 50 mg tablet Indications: Primary hypertension Take 1 tablet by mouth once daily. 90 tablet 3 10/14/2022 03/25/2023 Discontinued Comment on above: Take 1 tablet by ana laura th once daily. meloxicam 15 mg oral tablet (3 sources) Nonsteroidal Anti-inflammatory Drug Start: 10-26-2022 End: 10-29-2022 take 15 mg by mouth once daily Meloxicam Discontinued 15 MG PO DAILY October 26, 2022 1:00am October 29, 2022 10:59am Problems Active Problems Problem Classification Problem Date Documented Date Episodic/Chronic Abdominal pain (2 sources) Generalized abdominal pain; Translations: [Generalized abdominal pain] 03-07-2024 Episodic Adjustment disorders (6 sources) Adjustment disorder with anxious mood; Translations: [Adjustment disorder with anxiety] Onset: 01-16-2025 Chronic Administrative/social admission (20 sources) Patient encounter status; Translations: [Persons encountering health services in other specified circumstances] Onset: 03-03-2025 09-30-2021 Episodic Allergic reactions (1 source) Inflammatory dermatosis; Translations: [Dermatitis, unspecified] Episodic Anxiety disorders (20 sources) Anxiety; Translations: [Anxiety disorder, unspecified] Onset: 11-13-2022 Chronic Biliary tract disease (6 sources) Acute cholecystitis; Translations: [Acute cholecystitis] 02-28-2020 Episodic Blindness and vision defects (1 source) Diplopia; Translations: [Diplopia] Onset: 03-03-2025 Episodic Complications of surgical procedures or medical care (1 source) Other complications of anesthesia, initial encounter; Translations: [Complication of anesthesia, initial encounter] Onset: 03-03-2025 Episodic Disorders of lipid metabolism (2 sources) Mixed hyperlipidemia; Translations: [Mixed hyperlipidemia] Onset: 05-26-2024 05-02-2024 Chronic E Codes: Fall (6 sources) Fall on same level from slipping, tripping or stumbling ; Translations: [Fall on same level from slipping, tripping and stumbling without subsequent striking against object, initial encounter] 05-06-2022 Episodic Esophageal disorders (16 sources) Gastroesophageal reflux disease without esophagitis; Translations: [Gastro-esophageal reflux disease without esophagitis] Onset: 03-20-2025 Chronic Essential hypertension (20 sources) Hypertensive disorder; Translations: [Essential (primary) hypertension] Onset: 09-24-2022 09-24-2022 Chronic Fracture of lower limb (7 sources) Closed fracture proximal tibia, lateral condyle (plateau) ; Translations: [Displaced fracture of lateral condyle of unspecified tibia, initial encounter for closed fracture] Onset: 12-03-2022 10-29-2022 Episodic Genitourinary symptoms and ill-defined conditions (5 sources) Painful micturition, unspecified; Translations: [Increased frequency of urination] Onset: 08-13-2022 03-05-2024 Episodic Headache; including migraine (20 sources) Migraine; Translations: [Other migraine, not intractable, without status migrainosus] Onset: 07-17-2017 Chronic Miscellaneous mental health disorders (20 sources) Chronic insomnia; Translations: [Psychophysiologic insomnia] Onset: 11-13-2020 11-13-2020 Chronic Nausea and vomiting (3 sources) Nausea; Translations: [Nausea] 03-07-2024 Episodic Nonspecific chest pain (4 sources) Chest pain; Translations: [Chest pain, unspecified] 09-30-2022 Episodic Other and unspecified benign neoplasm (2 sources) Leiomyoma; Translations: [Benign neoplasm of connective and other soft tissue, unspecified] 03-08-2024 Episodic Other bone disease and musculoskeletal deformities (1 source) Pain of left shoulder blade; Translations: [Other specified disorders of bone, shoulder] 07-25-2023 Episodic Other connective tissue disease (1 source) Iliotibial band friction syndrome; Translations: [Iliotibial band syndrome, right leg] Episodic Other connective tissue disease (4 sources) Impingement syndrome of shoulder region; Translations: [Impingement syndrome of right shoulder] 09-03-2022 Episodic Other connective tissue disease (3 sources) Impingement syndrome of right shoulder; Translations: [Other affections of shoulder region, not elsewhere classified] 09-03-2022 Episodic Other connective tissue disease (1 source) Pain in left arm; Translations: [Pain in left arm] 07-09-2023 Episodic Other connective tissue disease (2 sources) Pain in right lower limb; Translations: [Pain in right leg] 07-04-2024 Episodic Other eye disorders (6 sources) Ptosis of bilateral eyebrows; Translations: [Brow ptosis, bilateral] 02-28-2020 Episodic Other female genital disorders (2 sources) Mucous retention cyst of cervix uteri; Translations: [Other specified noninflammatory disorders of cervix uteri] 03-08-2024 Episodic Other injuries and conditions due to external causes (6 sources) Closed injury of head; Translations: [Unspecified injury of head, initial encounter] 05-06-2022 Episodic Other injuries and conditions due to external causes (4 sources) Injury of right shoulder; Translations: [Unspecified injury of right shoulder and upper arm, initial encounter] 09-03-2022 Episodic Other injuries and conditions due to external causes (3 sources) Injury of knee; Translations: [Unspecified injury of right lower leg, initial encounter] 10-26-2022 Episodic Other injuries and conditions due to external causes (1 source) Unspecified injury of right lower leg, initial encounter; Translations: [Unspecified injury of right lower leg, initial encounter] Onset: 11-06-2022 Episodic Other liver diseases (1 source) Lesion of liver; Translations: [Liver disease, unspecified] 03-08-2024 Chronic Other lower respiratory disease (4 sources) Dyspnea; Translations: [Shortness of breath] 09-24-2022 Episodic Other non-traumatic joint disorders (3 sources) Joint pain; Translations: [Pain in unspecified joint] Episodic Other non-traumatic joint disorders (2 sources) Instability of joint of right knee; Translations: [Other instability, right knee] 10-27-2022 Episodic Other nutritional; endocrine; and metabolic disorders (1 source) Weight gain; Translations: [Abnormal weight gain] 05-02-2024 Episodic Other skin disorders (6 sources) Wrinkled face; Translations: [Other specified disorders of the skin and subcutaneous tissue] 02-28-2020 Episodic Other skin disorders (6 sources) Rhytide of forehead; Translations: [Other specified disorders of the skin and subcutaneous tissue] 02-28-2020 Episodic Other skin disorders (6 sources) Rhytide of glabellar skin; Translations: [Other specified disorders of the skin and subcutaneous tissue] 02-28-2020 Episodic Ovarian cyst (2 sources) Cyst of left ovary; Translations: [Unspecified ovarian cyst, left side] 03-08-2024 Episodic Residual codes; unclassified (1 source) Past history of procedure; Translations: [Personal history of other drug therapy] Episodic Residual codes; unclassified (5 sources) History of drug therapy; Translations: [Personal history of other drug therapy] 09-04-2021 Episodic Residual codes; unclassified (2 sources) Pain; Translations: [Pain, unspecified] 07-28-2024 Episodic Spondylosis; intervertebral disc disorders; other back problems (20 sources) Degeneration of lumbar intervertebral disc; Translations: [Other intervertebral disc degeneration, lumbar region] Onset: 11-26-2009 Chronic Sprains and strains (20 sources) Low back strain; Translations: [Strain of muscle, fascia and tendon of lower back, initial encounter] Episodic Superficial injury; contusion (15 sources) Contusion of knee; Translations: [Contusion of left knee, initial encounter] Onset: 11-05-2022 Episodic Unclassified (2 sources) 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 Onset: 02-17-2025 02-17-2025 Unclassified (2 sources) History of colonic polyps; Translations: [History of colonic polyps] Onset: 06-01-2023 Unclassified (1 source) Intractable chronic migraine with aura and without status migrainosus; Translations: [Intractable chronic migraine with aura and without status migrainosus] Onset: 07-17-2017 Unclassified (1 source) DDD (degenerative disc disease), lumbar; Translations: [DDD (degenerative disc disease), lumbar] Onset: 11-14-2024 Unclassified (1 source) Degeneration of intervertebral disc of lumbar region, unspecified whether pain present; Translations: [Degeneration of intervertebral disc of lumbar region, unspecified whether pain present] Onset: 11-14-2024 Urinary tract infections (9 sources) Urinary tract infectious disease; Translations: [Urinary tract infection, site not specified] Episodic Viral infection (6 sources) Viral disease; Translations: [Viral infection, unspecified] 05-17-2021 Episodic Past or Other Problems Problem Classification Problem Date Documented Da te Episodic/Chronic Cardiac dysrhythmias (8 sources) Palpitations; Translations: [Palpitations] Onset: 10-15-2022 09-24-2022 Episodic Conditions associated with dizziness or vertigo (8 sources) Lightheadedness; Translations: [Dizziness and giddiness] Onset: 09-24-2022 09-24-2022 Episodic Headache; including migraine (20 sources) Headache; Translations: [Headaches] Onset: 10-05-2007 Resolved: 11-07-2009 Episodic Menstrual disorders (20 sources) Dysmenorrhea; Translations: [Dysmenorrhea, unspecified] Onset: 11-22-2014 Resolved: 08-03-2024 11-22-2014 Chronic Mood disorders (20 sources) Moderate major depression, single episode; Translations: [Major depressive disorder, single episode, moderate] Onset: 11-13-2020 Resolved: 05-19-2022 11-13-2020 Chronic Other aftercare (20 sources) Wound finding; Translations: [Encounter for other specified aftercare] Onset: 04-09-2012 Resolved: 06-25-2012 06-25-2012 Episodic Other aftercare (1 source) Encounter for therapeutic drug level monitoring; Translations: [Medication monitoring encounter] Onset: 05-26-2024 Episodic Other and unspecified benign neoplasm (20 sources) History of polyp of colon; Translations: [Personal history of colonic polyps] Onset: 06-01-2023 06-01-2023 Episodic Other connective tissue disease (20 sources) Radicular pain; Translations: [Neuralgia and neuritis, unspecified] Onset: 08-24-2023 08-03-2023 Episodic Other connective tissue disease (1 source) Pain in right leg; Translations: [Pain of right lower extremity] Onset: 07-04-2024 Episodic Other injuries and conditions due to external causes (1 source) Unspecified injury of right shoulder and upper arm, initial encounter; Translations: [Unspecified injury of right shoulder and upper arm, initial encounter] Onset: 09-03-2022 Episodic Other injuries and conditions due to external causes (1 source) Encounter for examination and observation following other accident; Translations: [Encounter for examination and observation following other accident] Onset: 05-02-2022 Episodic Other lower respiratory disease (4 sources) Shortness of breath; Translations: [Shortness of breath] Onset: 09-24-2022 09-24-2022 Episodic Other non-epithelial cancer of skin (20 sources) Basal cell carcinoma of skin; Translations: [Basal cell carcinoma of skin, unspecified] Onset: 11-29-2012 11-29-2012 Episodic Other non-traumatic joint disorders (1 source) Other instability, right knee; Translations: [Other instability, right knee] Onset: 10-27-2022 Episodic Other nutritional; endocrine; and metabolic disorders (1 source) Abnormal weight gain; Translations: [Weight gain] Onset: 05-26-2024 Episodic Other screening for suspected conditions (not mental disorders or infectious disease) (5 sources) Cancer cervix screening status; Translations: [Encounter for screening for malignant neoplasm of cervix] Onset: 08-30-2024 08-03-2024 Episodic Residual codes; unclassified (1 source) Pain, unspecified; Translations: [Pain] Onset: 07-28-2024 Episodic Spondylosis; intervertebral disc disorders; other back problems (20 sources) Lumbar radiculopathy; Translations: [Radiculopathy, lumbar region] Onset: 10-01-2010 Resolved: 04-09-2015 11-13-2021 Episodic Unclassified (6 sources) Contusion of right knee, initial encounter 05-06-2022 Unclassified (2 sources) Patient encounter status 01-23-2025 Results Test Name Value Interpretation Reference Range Facility OVon 05-10-2025 CNOV Office Visit ([facility] ) ANASTASIA SIMPSON ([id number]) 1975 F Date Time Provider Department 05/10/25 3:30 PM ROBYN HARRIS During your visit today, we recorded the following information about you: Pulse Respiration Blood pressure Weight 67/minute 16/minute 112/90 60.1 kg Robyn Harris PA-C 05/10/2025 4:08 PM Signed Follow-Up Onabotulinum Toxin A (BotoxTM) for Migraine Indication: Chronic Intractable Migraine Treatment #: 3 Referral Expiration: 04/19/2026 Prior to the initiation of the FIRST treatment with Onabotulinum Toxin A, the patient reported the following average headache frequency over the past 3 MONTHS: Number of moderate-severe migraine days/month: 30 (daily) Number of mild migraine days/month: 0 Number of headache free days/month: 0 (0 headache-free hours) Migraine severity: 10/10 After treatment with Onabotulinum Toxin A: Number of moderate-severe migraine days/month: 28 Number of mild migraine days/month: 0 Number of headache free days/month: 2 (48 headache-free hours) Migraine severity: 10/10 Patient reduction in overall migraine days: Yes Patient reduction in moderate-severe migraine days: Yes Patient reduction of headache hours by 100 hours or more: No Individual has obtained clinical benefit deemed significant by individual or prescriber (Y/N): Yes Patient's quality of life and ability to perform ADLs has improved (Y/N): Yes Side effects: none Wearing off: Yes - 9 weeks after treatment The patient has been assessed for disorders which could contribute to breathing or swallowing difficulty, and there is no contraindication with PREEMPT Botox. There is no documented allergic reaction/hypersensiti vity to any botulinum toxin and there is no active infection at proposed injection site. HEADACHE SCORES: 07/10/2024 Headache Questions ID Migraine Screener: 3 (Positive) Initial improvement of headache after botox injection at last visit: Not applicable, I did not have a botox injection at my last visit 01/09/2025 03/13/2025 03/20/2025 UMAIR - 2/7 SCORES UMAIR-2 Score 0 1 1 1 1 UMAIR-7 Score 1 2 2 2 2 Multiple values from one day are sorted in reverse-chronological order 07/10/2024 Migraine Specific QOL - Higher scores indicate better HRQL Role Function-Restrictive Transformed Score (range: 0-100) 45.71 Role Function-Preventive Transformed Score (range: 0-100) 90 Emotional Function Transformed Score (range: 0-100) 66.67 05/02/2024 12/16/2016 09/29/2016 PHQ-9 Score 2 2 6 Data saved with a previous flowsheet row definition LMP 02/18/2025 (Exact Date) Patient name: Anastasia Simpson : 1975 ALLERGIES Allergen Reactions Celestone [Betameth* Other: See Comments Cheeks and neck red and hot- felt like she had a fever in top 1/2 of body, other steroids have been ok Codeine GI UPSET, HEART RACES Emgality Pen [Galca* Hives Neurontin [Gabapent* Other: See Comments Extreme dizziness Sulfa (Sulfonamide * UNKNOWN UNIVERSAL PROTOCOL / SAFETY CHECKLIST Procedure: Onabotulinum toxin A for migraine Informed Consent Consent Obtained: Written [place] Protocol A moment to CARE was completed SIGN IN Personnel directly involved with the procedure wore the appropriate PPE Special Equipment: N/A Patient/Surrogate Stated/Verified: Patient name, Date of , Relevant allergies and Intended procedure TIME OUT No relevant labs, photos, and/or imaging studies were applicable for review. Consent documented and matches the intended procedure No correct side/site applicable for marking and visibility. No medications required for procedure. No fire risk assessment and interventions applicable. No implant(s) inserted. SIGN OUT No specimen collected. Written Consent Obtained: Written LOT #: [id number] Expiration Date: Month: 3 Year: 2027 Injection Sites Left (Units) Left (Sites) Right (Units) Right (Sites) TOTAL (Units) Can Worker 5 1 5 1 10 Procerus Units: 5 Sites: 1 5 Frontalis 10 2 10 2 20 Temporalis 20 4 20 4 40 Occipitalis 15 3 15 3 30 Cervical PSP 10 2 10 2 20 Trapezius 15 3 15 3 30 Total Units used: 155 Total Units wasted: 45 Prior Therapies Duration of Use Dose Side effect Lexapro, propranolol, imitrex, norco, zofran Elavil TPM Gabapentin Qulipta denied PT presents for third botox, tolerated procedure well without complications. Currently on propranolol 60mg and imitrex for abortive. Will follow in three months for repeat admin. Notes that she had significant benefit for neck pain until it wore off at week 9. She did have 8 straight days of no headaches in February but then they returned. Notes that the imitrex may not be as effective anymore but has been taking them almost daily. Robyn Harris PA-C 05/09/2025 PROMIS [employer] Physical Health Summary Physical health: [place] (more content not included)... Normal [facility] CNPNon 04-19-2025 CNPN Telephone ([facility]) ANASTASIA SIMPSON ([id number]) 1975 F Date Time Provider Department 04/19/25 ROBYN HARRIS During your visit today, we recorded the following information about you: En Porter 04/19/2025 9:53 AM Signed Please be informed that the patient under your care, as referenced below, is covered by an insurance plan that necessitates prior authorization. The payer has stipulated that the treatment must be processed through the patient?s pharmacy benefits, which requires the medication to be sourced from a Specialty Pharmacy and shipped to your location for administration. We have an approval on file for the drug listed below, however, It is imperative that a prescription be submitted to the Specialty Pharmacy to facilitate the arrangement of the medication schedule and subsequent delivery. Upon receipt of the prescription, the Specialty Pharmacy will conduct a benefits review and will reach out to the patient to discuss any potential [id number] expenses. Your office should advise the patient of this procedure and inform them that they should expect a call to provide consent for delivery to your location. Please notify the patient that this call may appear as Restricted or Unknown on the caller ID. Following the patient?s consent, please coordinate the delivery to ensure the medication arrives in time for the next scheduled treatment. Kindly allow 7 to 10 business days for the completion of this process. HCPCS code(s) AND drug name(s): J0585 Botox Diagnosis submitted (ICD -10 code AND description): G43.E19 (ICD-10-CM) - Intractable chronic migraine with aura and without status migrainosus Patient: ANASTASIA SIMPSON : 1975 DOS: [facility] Specialty Pharmacy Information Name of Specialty Pharmacy [facility] Phone Specialty Pharmacy Fax Thank you for your assistance with this request. Please feel free to contact me if any additional information or clarification is needed. Kimmy Tyson LPN 04/19/2025 1:04 PM Signed Botox referral YAMILETH Jack Melanie, RN 04/19/2025 3:17 PM Signed Addended by: ROBYN RIVERO on: 04/19/2025 03:17 PM Modules accepted: Robyn Frost PA-C 04/19/2025 3:54 PM Signed Addended by: ROBYN HARRIS on: 04/19/2025 03:54 PM Modules accepted: Robyn Knott RN 04/20/2025 11:23 AM Addendum Called [facility] jorge and they did receive the Rx but cannot process the prescription because the start date of the auth is the date of service which is 04/27/25. If processed on 04/27/25 however, the prescription will not be here on site that day to administer to the patient. Called Michael at [phone] and was able to get the prior authorization request modified to today's date. The new date if approved will be faxed to the office. To the [place] team: Please be on the lookout to receive this updated date fax because once received we should call the specialty pharmacy back to ensure they are processing it. Thank you Robyn Rivero RN 04/20/2025 11:47 AM Signed Received updated auth approval with today's start date from [facility]. Will send to scanning. Referral updated. Again called [facility] to check on processing the prescription. They said it's not in their system yet, and can take 24 to 48 hours. Once in the system, they process Rx and contact the patient. Glass Melt Operator said at this time there is no further action required from the office. Robyn Rivero RN 04/25/2025 8:14 AM Addendum Called [facility] Specialty pharmacy and spoke to four different representatives over 45 minutes at both phone numbers and . One said they did not receive the patient's prescription, the second one said the patient does not even have an account, and a third person at the specialty pharmacy said they don't dispense Botox there at all, as it's not on their drug list. Robyn Rivero RN 04/24/2025 10:48 AM Signed Addended by: ROBYN RIVERO on: 04/24/2025 10:48 AM Modules accepted: Robyn Knott RN 04/25/2025 8:13 AM Signed Addended by: ROBYN RIVERO on: 04/25/2025 08:13 AM Modules accepted: Robyn Knott RN 04/25/2025 8:15 AM Signed Robyn, the order is pending to send to [facility]. When the order is confirmed with the pharmacy, do you think you could give this at the [place] location (it's a 200 unit vial)? We would have to confirm the delivery address when delivery is arranged. There might be more availability there, and it's where the patient lives. Robyn Harris PA-C 04/25/2025 9:38 AM Signed Addended by: ROBYN HARRIS on: 04/25/2025 09:38 AM Modules accepted: Robyn Knott RN 04/26/2025 2:14 PM Signed Scheduled May 10 in [place]. Continue follow up to ensure d (more content not included)... Normal [facility] CNPHalley 04-07-2025 [place] Telephone ([facility]) ANASTASIA SIMPSON ([id number]) 1975 F Date Time Provider Department 04/07/25 ROBYN HARRIS During your visit today, we recorded the following information about you: Mariel Johnston RN 04/07/2025 2:29 PM Signed Patient calling to check on status of Prior Authorization referral that was submitted on 03/17/25 for Neurology Appt and botox injections with Jaycee LOW. She would like to schedule next appt. Please call patient with an update. MARTITA Mcgill Lori, LPN 04/10/2025 12:21 PM Signed Message left for patient that referral shows pending authorization but likely due to it takes effect 04/13/25 and old expiring 04/12/25. New appointment needs scheduled under new referral. YAMILETH Godwin Lori, LPN 04/11/2025 8:04 AM Signed Noted patient scheduled for 04/27/25. Kimmy Tyson LPN Allergies As of Date: 04/07/2025 Noted Allergy Reaction CELESTONE (BETAMETHASONE SODIUM P*12/19/2010 14 - Other: See Comments Comments: Cheeks and neck red and hot- felt like she had a fever in top 1/2 of body, other steroids have been ok CODEINE 07/01/2004 Comments: GI UPSET, HEART RACES EMGALITY PEN (GALCANEZUMAB-GNLM) 09/02/2024 4 - Hives NEURONTIN (GABAPENTIN) 02/09/2014 14 - Other: See Comments Comments: Extreme dizziness SULFA (SULFONAMIDE ANTIBIOTICS) 07/01/2004 Comments: UNKNOWN Date Reviewed: 03/20/2025 Reviewed by: Danitza Mendez LPN - Fully Assessed Reason for Visit: Prior Authorization [Other] Prescriptions as of 04/11/2025 - HYDROcodone-acetamino phen (NORCO) 5-325 mg per tablet Take 1 tablet by mouth every 6 hours as needed for up to 30 days. - propranolol ER (INDERAL LA) 60 mg 24 hr capsule Take 1 capsule by mouth once daily. - valACYclovir (VALTREX) 1 gram tablet Take 1 tablet by mouth two times a day. - SUMAtriptan (IMITREX) 100 mg tablet Take 1 tablet by mouth once daily as needed for migraine headache (see administration instructions) (may repeat once in 24 hours.). - progesterone micronized (PROMETRIUM) 100 mg capsule Take 100 mg by mouth once daily. - estradiol (MINIVELLE, VIVELLE-DOT) 0.0375 mg/24 hr patch Apply 1 patch as directed two times a week. - ondansetron orally disintegrating (ZOFRAN ODT) 4 mg disintegrating tablet Take 1 tablet by mouth every 6 hours as needed for nausea/vomiting. - omeprazole (PRILOSEC) 20 mg capsule Take 1 capsule by mouth daily before breakfast. 1/2 hr before meal. - mometasone (ELOCON) 0.1 % cream Apply 1 application to affected area once daily. - SENNOSIDES 8.6 MG TAB as needed for constipation Problem List As Of Date 04/07/2025 Noted Resolved Headache [R51] 10/05/2007 11/07/2009 Postlaminectomy syndrome [M96.1] 11/26/2009 Chronic low back pain [M54.50, G89.29] 10/01/2010 04/09/2015 Visit for wound check [Z51.89] 04/09/2012 06/25/2012 Basal cell carcinoma [C44.91] 11/29/2012 Dysmenorrhea [N94.6] 11/22/2014 08/03/2024 Menorrhagia [N92.0] 11/22/2014 08/03/2024 Migraine [G43.909] 07/17/2017 Chronic insomnia [F51.04] 11/13/2020 Moderate major depression, single episode (HCC)*11/13/2020 05/19/2022 Anxiety [F41.9] 11/13/2022 History of colonic polyps [Z86.0100] 06/01/2023 Neck pain [M54.2] 08/24/2023 Radicular pain in left arm [M79.2] 08/24/2023 Acute left-sided thoracic back pain [M54.6] 08/24/2023 Hypertension [I10] 09/24/2022 Screen for colon cancer [Z12.11] 03/03/2025 Encounter Status:Closed by KIMMY TYSON on 04/10/25 [facility] CNOVon 03-20-2025 CNOV Office Visit (FAMPWS ) ANASTASIA SIMPSON ([id number]) 1975 F Date Time Provider Department 03/20/25 5:00 PM JACEK [facility]CRUGGS [facility] During your visit today, we recorded the following information about you: Pulse Blood pressure 88/minute 102/62 Jacek Scruggs MD 03/20/2025 5:26 PM Signed - Sign your new opioid (controlled substance) agreement today so you can continue Vienna for pain control. - Continue taking Vienna exactly as prescribed; do not increase your dose or share it with others. - Attend your dermatology appointment in one week for your routine skin check. - Keep using your current heartburn medication, which has been helping; you may continue avoiding spicy foods as needed. - If your double vision returns, contact our office right away so we can arrange an welfare specialist evaluation and any necessary imaging. - Plan to return to this clinic in about two months to review your pain management, migraine treatment, and overall progress. Jacek Scruggs MD 03/20/2025 8:06 PM Signed Anastasia Rashid Debbie is a 49-year-old female with a history of migraines and chronic pain, presenting for follow-up. HPI Migraine: - Recent episode of diplopia post-colonoscopy on 03/03, resolved after IV fluids in the ED. - Experiencing a prolonged migraine episode lasting several weeks. - Received second Botox treatment on 01/25; noted an 8-day period without migraines following the treatment. - Migraines resumed on Thursday night of last week. - Scheduled for a third Botox treatment in early April; currently in the process of obtaining approval for additional treatments. Chronic Pain: - Pain managed with Vienna; Anastasia reports effective control most days. - Pain exacerbated by overexertion. - No increase in medication usage reported. - helps her with her ADLS - Has completed her tox screen - has seen specialists in the past. - no history or misuse or abuse. GERD: - Occasional heartburn, improved with recent medication change. - Avoids spicy foods. Colonoscopy: - Underwent colonoscopy on 03/03. - On a 10-year screening schedule. Dermatology: - Upcoming dermatology appointment next week. - No new skin issues reported. MEDICATIONS: Current Outpatient Medications Medication Sig HYDROcodone-acetamino phen (NORCO) 5-325 mg per tablet Take 1 tablet by mouth every 6 hours as needed for up to 30 days. valACYclovir (VALTREX) 1 gram tablet Take 1 tablet by mouth two times a day. SUMAtriptan (IMITREX) 100 mg tablet Take 1 tablet by mouth once daily as needed for migraine headache (see administration instructions) (may repeat once in 24 hours.). progesterone micronized (PROMETRIUM) 100 mg capsule Take 100 mg by mouth once daily. estradiol (MINIVELLE, VIVELLE-DOT) 0.0375 mg/24 hr patch Apply 1 patch as directed two times a week. ondansetron orally disintegrating (ZOFRAN ODT) 4 mg disintegrating tablet Take 1 tablet by mouth every 6 hours as needed for nausea/vomiting. omeprazole (PRILOSEC) 20 mg capsule Take 1 capsule by mouth daily before breakfast. 1/2 hr before meal. mometasone (ELOCON) 0.1 % cream Apply 1 application to affected area once daily. propranolol ER (INDERAL LA) 60 mg 24 hr capsule Take 1 capsule by mouth once daily. SENNOSIDES 8.6 MG TAB as needed for constipation No current facility-administered medications for this visit. ALLERGIES: ALLERGIES Allergen Reactions Celestone [Betameth* Other: See Comments Cheeks and neck red and hot- felt like she had a fever in top 1/2 of body, other steroids have been ok Codeine GI UPSET, HEART RACES Emgality Pen [Galca* Hives Neurontin [Gabapent* Other: See Comments Extreme dizziness Sulfa (Sulfonamide * UNKNOWN PAST MEDICAL HISTORY Diagnosis Date Basal cell carcinoma 2011, 2015 multiple sites High blood pressure History of colonic polyps Moderate major depression, single episode (HCC) 11/13/2020 Other migraine without status migrainosus, not intractable PMH - PAST MEDICAL HISTORY OF irritable bowel syndrome PMH - PAST MEDICAL HISTORY OF back pain PMH - PAST MEDICAL HISTORY OF Injections L4-L5 by Dr Knox in [place] Primary hypertension PAST SURGICAL HISTORY Procedure Laterality Date COLONOSCOPY FLX DX W/COLLJ SPEC WHEN PFRMD 02/28/2020 Colonoscopy-Dr Bryant ESOPHAGOGASTRODUODENO SCOPY TRANSORAL DIAGNOSTIC 02/28/2020 EGD-Dr Bryant LAPAROSCOPIC CHOLECYSTECTOMY 08/26/2018 Dr. Bryant MOHJanessa TRUNK/ARM/LEG 1ST STAGE 5 BLOCKS multiple BCC PAST SURGICAL HISTORY OF 02/2003 x2 discectomy L4-5 S1 PAST SURGICAL HISTORY OF DANDC PAST SURGICAL HISTORY OF 07/11/2004 L5-S1 anterior lumbar interbody fusion with posterior L5-S1 translaminar facet screw on left side and a facet joint screw on the right side, and this would be a 360-degree fusion PAST SURGICAL HISTORY OF 1999 lasix eye kendrick (more content not included)... Normal [facility] CNPNon 03-17-2025 CNPN Telephone ([facility]) ANASTASIA SIMPSON ([id number]) 1975 F Date Time Provider Department 03/17/25 ROBYN HARRIS [facility] During your visit today, we recorded the following information about you: Elidia Cash 03/17/2025 8:53 AM Signed Patient calling to schedule future botox injections with establish neurologist. Currently there is no authorized referral in patient's chart. Please submit prior authorization if provider is wanting patient to continue with botox injections. Jaylen Tubbs LPN 03/17/2025 10:23 AM Signed Referral entered. Jaylen Tubbs LPN Allergies As of Date: 03/17/2025 Noted Allergy Reaction CELESTONE (BETAMETHASONE SODIUM P*12/19/2010 14 - Other: See Comments Comments: Cheeks and neck red and hot- felt like she had a fever in top 1/2 of body, other steroids have been ok CODEINE 07/01/2004 Comments: GI UPSET, HEART RACES EMGALITY PEN (GALCANEZUMAB-GNLM) 09/02/2024 4 - Hives NEURONTIN (GABAPENTIN) 02/09/2014 14 - Other: See Comments Comments: Extreme dizziness SULFA (SULFONAMIDE ANTIBIOTICS) 07/01/2004 Comments: UNKNOWN Date Reviewed: 03/03/2025 Reviewed by: Corina Marie RN - Fully Assessed Reason for Visit: Insurance Authorization [[id number]] Prescriptions as of 03/17/2025 - HYDROcodone-acetamino phen (NORCO) 5-325 mg per tablet Take 1 tablet by mouth every 6 hours as needed for up to 30 days. - valACYclovir (VALTREX) 1 gram tablet Take 1 tablet by mouth two times a day. - SUMAtriptan (IMITREX) 100 mg tablet Take 1 tablet by mouth once daily as needed for migraine headache (see administration instructions) (may repeat once in 24 hours.). - progesterone micronized (PROMETRIUM) 100 mg capsule Take 100 mg by mouth once daily. - estradiol (MINIVELLE, VIVELLE-DOT) 0.0375 mg/24 hr patch Apply 1 patch as directed two times a week. - ondansetron orally disintegrating (ZOFRAN ODT) 4 mg disintegrating tablet Take 1 tablet by mouth every 6 hours as needed for nausea/vomiting. - omeprazole (PRILOSEC) 20 mg capsule Take 1 capsule by mouth daily before breakfast. 1/2 hr before meal. - mometasone (ELOCON) 0.1 % cream Apply 1 application to affected area once daily. - propranolol ER (INDERAL LA) 60 mg 24 hr capsule Take 1 capsule by mouth once daily. - SENNOSIDES 8.6 MG TAB as needed for constipation Problem List As Of Date 03/17/2025 Noted Resolved Headache [R51] 10/05/2007 11/07/2009 Postlaminectomy syndrome [M96.1] 11/26/2009 Chronic low back pain [M54.50, G89.29] 10/01/2010 04/09/2015 Visit for wound check [Z51.89] 04/09/2012 06/25/2012 Basal cell carcinoma [C44.91] 11/29/2012 Dysmenorrhea [N94.6] 11/22/2014 08/03/2024 Menorrhagia [N92.0] 11/22/2014 08/03/2024 Migraine [G43.909] 07/17/2017 Chronic insomnia [F51.04] 11/13/2020 Moderate major depression, single episode (HCC)*11/13/2020 05/19/2022 Anxiety [F41.9] 11/13/2022 History of colonic polyps [Z86.0100] 06/01/2023 Neck pain [M54.2] 08/24/2023 Radicular pain in left arm [M79.2] 08/24/2023 Acute left-sided thoracic back pain [M54.6] 08/24/2023 Hypertension [I10] 09/24/2022 Screen for colon cancer [Z12.11] 03/03/2025 Encounter Status:Closed by JAYLEN TUBBS on 03/17/25 [facility] ANES POSTPROC EVALon 025 ANES POSTPROC EVAL HNO ID: [id number] Author: STEPHANIE TELLO MD Service: Anesthesiology Author Type: Anesthesiologist Type: Anesthesia Postprocedure Evaluation Filed: 03/03/2025 15:10 Note Text: POST ANESTHESIA EVALUATION NOTE : 1975 Procedure Summary Date: 03/03/25 Room / Location: [facility] Endoscopy Anesthesia Start: 720 Anesthesia Stop: 742 Procedure: COLONOSCOPY SCREENING Diagnosis: History of colonic polyps Screen for colon cancer (High risk colon cancer surveillance: Personal History of adenomatous polyps) Scheduled Providers: Sage Bryant MD; Stephanie Tello MD; Gypsy Agrawal APRN.SCIENTIFIC DIVER Responsible Provider: Stephanie Tello MD Anesthesia Type: MAC ASA Status: 2 Anesthesia Type: MAC Last Vitals Vitals Value Taken Time BP 135/95 03/03/25 0900 Temp 36.5 ?C (97.7 ?F) 03/03/25 0745 Pulse 76 03/03/25 0859 Resp 17 03/03/25 0859 SpO2 99 % 03/03/25 0859 Vitals shown include unfiled device data. Post Anesthesia Patient Status Patient Evaluation: PACU (pt. sent to ED after procedure probable migraine varient). PACU/ICU Patient Condition: guarded. Anticipated Disposition: inpatient floor planned admission. Neurological Status: aware and responsive. Pulmonary Status: breathing comfortably on room air Airway Control: returned to baseline unsupported. Cardiovascular Status: guarded. Pain Management: clinically adequate - multimodal analgesia pain management approach Postoperative Hydration: acceptable. Intraoperative Events: no significant anesthesia events Post Operative Nausea/Vomiting Status: no significant post operative nausea or vomiting Recommendation: continue current plan of care and further care per PACU/ICU/floor team. Other Remarks: She probably having a migraine variant that isn't resolving with fluid and blood sugar check. I advised her to go to ER she has ophthalmology appointment in near future. . Anesthesia Observations No Documentation SIGNATURE: Stephanie Tello MD PATIENT NAME: Anastasia Simpson DATE: March 03, 2025 TIME: 3:08 PM CSN: [id number] Normal [facility] ANES PRE-OPon 03-03-2025 ANES PRE-OP HNO ID: [id number] Author: STEPHANIE TELLO MD Service: Anesthesiology Author Type: Anesthesiologist Type: Anesthesia Preprocedure Evaluation Filed: 03/03/2025 06:44 Note Text: ANESTHESIOLOGY DAY OF SURGERY NOTE : 1975 Procedure Information Date/Time: 03/03/25 0730 Scheduled providers: Sage Bryant MD; Stephanie Tello MD; Gypsy Agrawal APRN.SCIENTIFIC DIVER Procedure: COLONOSCOPY SCREENING Location: [facility] Endoscopy Estimated body mass index is 23.52 kg/m? as calculated from the following: Height as of 01/23/25: 167.6 cm (5' 6). Weight as of 01/25/25: 66.1 kg (145 lb 11.6 oz). Most recent hematocrit and potassium results: Hematocrit 43.5 05/26/2024 Potassium 4.6 03/09/2024 Relevant Problems CARDIO (+) Hypertension (+) Migraine NEURO-PSYCH (+) History of colonic polyps (+) Migraine I - PHYSICAL EVALUATION AIRWAY Patient intubated: No. Tracheostomy tube not present Mallampati: II. TM distance: >3 FB. Neck ROM: full ROM without neurological symptoms. Mouth opening: adequate. Short neck: no. Thick neck: no DENTAL Dental findings: teeth intact. Additional exam findings: no II - ANESTHESIA PLAN ASA Score: 2 Anesthetic Plan: MAC The patient is not a current smoker. NPO Status: adequate Beta Rhea Monitoring Plan Monitoring plan: standard ASA. Post Procedure Analgesic Plan Postoperative analgesic plan: multimodal analgesia. Informed Consent Anesthetic risks, benefits, alternatives, personnel and consent discussed: yes. Patient / Responsible [employer] Party agrees to proceed: yes Patient / Surrogate agrees to blood products: blood products not planned DNR status not reviewed with patient and/or family prior to surgery. Significant changes in the patient condition since the History and Physical, not otherwise documented in primary service progress note: no. Potential Anesthesia issues that may suggest increased risk of complications or contraindication to planned procedure: none. Vitals Value Taken Time BP 125/88 03/03/2530 Pulse 84 03/03/2530 Resp Temp 36.4 ?C (97.5 ?F) 03/03/25 0630 SpO2 100 % 03/03/25629 Outpatient Medications as of 03/03/2025 Medication Sig SUMAtriptan (IMITREX) 100 mg tablet Take 1 tablet by mouth once daily as needed for migraine headache (see administration instructions) (may repeat once in 24 hours.). progesterone micronized (PROMETRIUM) 100 mg capsule Take 100 mg by mouth once daily. ondansetron orally disintegrating (ZOFRAN ODT) 4 mg disintegrating tablet Take 1 tablet by mouth every 6 hours as needed for nausea/vomiting. propranolol ER (INDERAL LA) 60 mg 24 hr capsule Take 1 capsule by mouth once daily. valACYclovir (VALTREX) 1 gram tablet Take 1 tablet by mouth two times a day. HYDROcodone-acetamino phen (NORCO) 5-325 mg per tablet Take 1 tablet by mouth every 6 hours as needed for up to 30 days. estradiol (MINIVELLE, VIVELLE-DOT) 0.0375 mg/24 hr patch Apply 1 patch as directed two times a week. omeprazole (PRILOSEC) 20 mg capsule Take 1 capsule by mouth daily before breakfast. 1/2 hr before meal. mometasone (ELOCON) 0.1 % cream Apply 1 application to affected area once daily. SENNOSIDES 8.6 MG TAB as needed for constipation Facility-Administered Medications as of 03/03/2025 Medication Dose Route Frequency lactated ringers iv infusion 30 mL/hr INTRAVENOUS CONTINUOUS I have interviewed and examined the patient. I have reviewed the medical record and/or the pre-anesthesia evaluation, pertinent labs, and test results. This contains updated information obtained within 48 hours of Surgery/Procedure. SIGNATURE: Stephanie Tello MD PATIENT NAME: Anastasia Simpson DATE: March 03, 2025 TIME: 6:44 AM CSN: [id number] Normal [facility] CBC W Auto Differential pane l (Bld)on 03-03-2025 Basophils (Bld) [#/Vol] 0.09 10*3/uL Normal <0.11 [facility] Comment on above: Order Comment: Speci men Type: BLOOD SPECIMEN Ordering Facility: [facility] Address: [address] [place] [address] Performed By: #### 5 7021-8 #### [facility] CLIA [id number] [address] [place] [address] [place] Basophils/100 WBC (Bld) 0.9 % Normal [facility] Comment on above: Order Comment: Speci men Type: BLOOD SPECIMEN Ordering Facility: [facility] Address: [address] [place] [address] Performed By: #### 5 7021-8 #### [facility] CLIA [id number] [address] [place] [address] [place] Differential cell count method Nom (Bld) Auto Normal [facility] Comment on above: Order Comment: Speci men Type: BLOOD SPECIMEN Ordering Facility: [facility] Address: [address] [place] [address] Performed By: #### 5 7021-8 #### [facility] CLIA [id number] [address] [place] [address] [place] Eosinophils (Bld) [#/Vol] 0.06 10*3/uL Normal <0.46 [facility] Comment on above: Order Comment: Speci men Type: BLOOD SPECIMEN Ordering Facility: [facility] Address: [address] [place] [address] Performed By: #### 5 7021-8 #### [facility] CLIA [id number] [address] [place] Eosinophils/100 WBC (Bld) 0.6 % Normal [facility] Comment on above: Order Comment: Speci men Type: BLOOD SPECIMEN Ordering Facility: [facility] Address: [address] [place] [address] Performed By: #### 5 7021-8 #### [facility] CLIA [id number] [address] [place] Erythrocyte distribution width (RBC) [Ratio] 12.4 % Normal 11.5-15.0 [facility] Comment on above: Order Comment: Speci men Type: BLOOD SPECIMEN Ordering Facility: [facility] Address: [address] [place] [address] Performed By: #### 5 7021-8 #### [facility] CLIA [id number] [address] [place] Hematocrit (Bld) [Volume fraction] 39.3 % Normal 36.0-46.0 [facility] Comment on above: Order Comment: Speci men Type: BLOOD SPECIMEN Ordering Facility: [facility] Address: [address] [place] [address] Performed By: #### 5 7021-8 #### [facility] CLIA [id number] [address] [place] Hemoglobin (Bld) [Mass/Vol] 12.9 g/dL Normal 11.5-15.5 [facility] Comment on above: Order Comment: Speci men Type: BLOOD SPECIMEN Ordering Facility: [facility] Address: [address] [place] [address] Performed By: #### 5 7021-8 #### [facility] CLIA [id number] [address] [place] Immature granulocytes (Bld) [#/Vol] 0.04 10*3/uL Normal <0.10 [facility] Comment on above: Order Comment: Speci men Type: BLOOD SPECIMEN Ordering Facility: [facility] Address: [address] [place] [address] Performed By: #### 5 7021-8 #### [facility] CLIA [id number] [address] Immature granulocytes/100 WBC (Bld) 0.4 % Normal [facility] Comment on above: Order Comment: Speci men Type: BLOOD SPECIMEN Ordering Facility: [facility] Address: [address] [place] [address] Performed By: #### 5 7021-8 #### [facility] CLIA [id number] [address] [place] Lymphocytes (Bld) [#/Vol] 1.97 10*3/uL Normal 1.00-4.00 [facility] Comment on above: Order Comment: Speci men Type: BLOOD SPECIMEN Ordering Facility: [facility] Address: [address] [place] [address] Performed By: #### 5 7021-8 #### [facility] CLIA [id number] [address] Lymphocytes/100 WBC (Bld) 19.7 % Normal [facility] Comment on above: Order Comment: Speci men Type: BLOOD SPECIMEN Ordering Facility: [facility] Address: [address] [place] [address] Performed By: #### 5 7021-8 #### [facility] CLIA [id number] [address] MCH (RBC) [Entitic mass] 29.6 pg Normal 26.0-34.0 [facility] Comment on above: Order Comment: Speci men Type: BLOOD SPECIMEN Ordering Facility: [facility] Address: [address] [place] [address] Performed By: #### 5 7021-8 #### [facility] CLIA [id number] [address] [place] MCHC (RBC) [Mass/Vol] 32.8 g/dL Normal 30.5-36.0 [facility] Comment on above: Order Comment: Speci men Type: BLOOD SPECIMEN Ordering Facility: [facility] Address: [address] [place] [address] Performed By: #### 5 7021-8 #### [facility] CLIA [id number] [address] [place] MCV (RBC) [Entitic vol] 90.1 fL Normal 80.0-100.0 [facility] Comment on above: Order Comment: Speci men Type: BLOOD SPECIMEN Ordering Facility: [facility] Address: [address] [place] [address] Performed By: #### 5 7021-8 #### [facility] CLIA [id number] [address] [place] [address] [place] Monocytes (Bld) [#/Vol] 0.68 10*3/uL Normal <0.87 [facility] Comment on above: Order Comment: Speci men Type: BLOOD SPECIMEN Ordering Facility: [facility] Address: [address] [place] [address] Performed By: #### 5 7021-8 #### [facility] CLIA [id number] [address] [place] Monocytes/100 WBC (Bld) 6.8 % Normal [facility] Comment on above: Order Comment: Speci men Type: BLOOD SPECIMEN Ordering Facility: [facility] Address: [address] [place] [address] Performed By: #### 5 7021-8 #### [facility] CLIA [id number] [address] [place] [address] [place] Neutrophils (Bld) [#/Vol] 7.15 10*3/uL Normal 1.45-7.50 [facility] Comment on above: Order Comment: Speci men Type: BLOOD SPECIMEN Ordering Facility: [facility] Address: [address] [place] [address] Performed By: #### 5 7021-8 #### [facility] CLIA [id number] [address] [place] Neutrophils/100 WBC (Bld) 71.6 % Normal [facility] Comment on above: Order Comment: Speci men Type: BLOOD SPECIMEN Ordering Facility: [facility] Address: [address] [place] [address] Performed By: #### 5 7021-8 #### [facility] CLIA [id number] [address] [place] Nucleated RBC (Bld) [#/Vol] 10*3/uL Normal <0.01 [facility] Comment on above: Order Comment: Speci men Type: BLOOD SPECIMEN Ordering Facility: [facility] Address: [address] [place] [address] Performed By: #### 5 7021-8 #### [facility] CLIA [id number] [address] Nucleated RBC/100 WBC (Bld) [Ratio] 0.0 /100 WBC Normal [facility] Comment on above: Order Comment: Speci men Type: BLOOD SPECIMEN Ordering Facility: [facility] Address: [address] [place] [address] Performed By: #### 5 7021-8 #### [facility] CLIA [id number] [address] [place] [address] [place] Platelet mean volume (Bld) [Entitic vol] 10.4 fL Normal 9.0-12.7 [facility] Comment on above: Order Comment: Speci men Type: BLOOD SPECIMEN Ordering Facility: [facility] Address: [address] [place] [address] Performed By: #### 5 7021-8 #### [facility] CLIA [id number] [address] [place] Platelets (Bld) [#/Vol] 224 10*3/uL Normal 150-400 [facility] Comment on above: Order Comment: Speci men Type: BLOOD SPECIMEN Ordering Facility: [facility] Address: [address] [place] [address] Performed By: #### 5 7021-8 #### [facility] CLIA [id number] [address] [place] [address] [place] RBC (Bld) [#/Vol] 4.36 10*6/uL Normal 3.90-5.20 [facility] Comment on above: Order Comment: Speci men Type: BLOOD SPECIMEN Ordering Facility: [facility] Address: [address] [place] [address] Performed By: #### 5 7021-8 #### [facility] CLIA [id number] [address] [place] [address] [place] WBC (Bld) [#/Vol] 9.99 10*3/uL Normal 3.70-11.00 [facility] Comment on above: Order Comment: Speci men Type: BLOOD SPECIMEN Ordering Facility: [facility] Address: [address] [place] [address] Performed By: #### 5 7021-8 #### [facility] CLIA [id number] [address] [place] [address] [place] Colonoscopyon 03-03-2025 Colonoscopy [facility] Gastrointestinal Endoscopy Patient Name: Anastasia Simpson Procedure Date: 03/03/2025 7:09 AM Date of : 1975 Admit Type: Outpatient Age: 49 Room: [facility] Gender: Female Note Status: Finalized Attending MD: Sage Bryant MD, [id number] Procedure: Colonoscopy Indications: High risk colon cancer surveillance: Personal history of adenomatous colonic polyps Providers: Sage Bryant MD Patient Profile: This is a 49 year old female. Refer to note in patient chart for documentation of history and physical. Last Colonoscopy: 2019. Referring Physician: Quin Mendez (Referring MD) Medicines: See the Anesthesia note for documentation of the administered medications Complications: No immediate complications. Estimated blood loss: None. Requesting Provider: Procedure: Pre-Anesthesia Assessment: - Prior to the procedure, a History and Physical was performed, and patient medications and allergies were reviewed. The patient's tolerance of previous anesthesia was also reviewed. The risks and benefits of the procedure and the sedation options and risks were discussed with the patient. All questions were answered, and informed consent was obtained. Prior Anticoagulants: The patient has taken no anticoagulant or antiplatelet agents. ASA Grade Assessment: II - A patient with mild systemic disease. After reviewing the risks and benefits, the patient was deemed in satisfactory condition to undergo the procedure. After I obtained informed consent, the scope was passed under direct vision. Throughout the procedure, the patient's blood pressure, pulse, and oxygen saturations were monitored continuously. The Colonoscope was introduced through the anus and advanced to the cecum, identified by appendiceal orifice and ileocecal valve. The colonoscopy was performed without difficulty. The patient tolerated the procedure well. The quality of the bowel preparation was adequate to identify polyps greater than 5 mm in size. The ileocecal valve, appendiceal orifice, and rectum were photographed. Scope Withdrawal Time: 0 hours 7 minutes 45 seconds Moderate Sedation: The following parameters were monitored: oxygen saturation, heart rate, blood pressure, respiratory rate, EKG, adequacy of pulmonary ventilation, and response to care. MAC anesthesia was administered by the anesthesia team. Total Procedure Duration: 0 hours 11 minutes 54 seconds Findings: The perianal and digital rectal examinations were normal. Non-bleeding internal hemorrhoids were found during retroflexion. The hemorrhoids were mild and medium-sized. The exam was otherwise without abnormality. Impression: - Non-bleeding internal hemorrhoids. - The examination was otherwise normal. - No specimens collected. Recommendation: - Patient has a contact number available for emergencies. The signs and symptoms of potential delayed complications were discussed with the patient. Return to normal activities tomorrow. Written discharge instructions were provided to the patient. - Resume previous diet. - Continue present medications. - Repeat colonoscopy in 10 years for screening purposes. - Return to primary care physician PRN. Procedure Code(s): --- Professional --- 48469, Colonoscopy, flexible; diagnostic, including collection of specimen(s) by brushing or washing, when performed (separate procedure) Diagnosis Code(s): --- Professional --- Z12.11, Encounter for screening for malignant neoplasm of colon Z86.0101, Personal history of adenomatous and serrated colon polyps K64.8, Other hemorrhoids CPT copyright 2020 [employer]. All rights reserved. The codes documented in this report are preliminary and upon certified coder review may be revised to meet current compliance requirements. Attending Participation: I personally performed the entire procedure. Scope In: 7:28:38 AM Scope Out: 7:40:32 AM MD Sage Jaquez MD 03/03/2025 7:44:18 AM This report has been signed electronically by Sage Bryant MD Number of Addenda: 0 Note Initiated On: 03/03/2025 7:09 AM Estimated Blood Loss: Estimated blood loss: none. Normal [facility] Colonoscopy Study observatio non 03-03-2025 [facility] Gastrointestinal Endoscopy Patient Name: Anastasia Simpson Procedure Date: 03/03/2025 7:09 AM Date of : 1975 Admit Type: Outpatient Age: 49 Room: [facility] Gender: Female Note Status: Finalized Attending MD: Sage Bryant MD, [id number] Procedure: Colonoscopy Indications: High risk colon cancer surveillance: Personal history of adenomatous colonic polyps Providers: Sage Bryant MD Patient Profile: This is a 49 year old female. Refer to note in patient chart for documentation of history and physical. Last Colonoscopy: 2019. Referring Physician: Quin Mendez (Referring MD) Medicines: See the Anesthesia note for documentation of the administered medications Complications: No immediate complications. Estimated blood loss: None. Requesting Provider: Procedure: Pre-Anesthesia Assessment: - Prior to the procedure, a History and Physical was performed, and patient medications and allergies were reviewed. The patient's tolerance of previous anesthesia was also reviewed. The risks and benefits of the procedure and the sedation options and risks were discussed with the patient. All questions were answered, and informed consent was obtained. Prior Anticoagulants: The patient has taken no anticoagulant or antiplatelet agents. ASA Grade Assessment: II - A patient with mild systemic disease. After reviewing the risks and benefits, the patient was deemed in satisfactory condition to undergo the procedure. After I obtained informed consent, the scope was passed under direct vision. Throughout the procedure, the patient's blood pressure, pulse, and oxygen saturations were monitored continuously. The Colonoscope was introduced through the anus and advanced to the cecum, identified by appendiceal orifice and ileocecal valve. The colonoscopy was performed without difficulty. The patient tolerated the procedure well. The quality of the bowel preparation was adequate to identify polyps greater than 5 mm in size. The ileocecal valve, appendiceal orifice, and rectum were photographed. Scope Withdrawal Time: 0 hours 7 minutes 45 seconds Moderate Sedation: The following parameters were monitored: oxygen saturation, heart rate, blood pressure, respiratory rate, EKG, adequacy of pulmonary ventilation, and response to care. MAC anesthesia was administered by the anesthesia team. Total Procedure Duration: 0 hours 11 minutes 54 seconds Findings: The perianal and digital rectal examinations were normal. Non-bleeding internal hemorrhoids were found during retroflexion. The hemorrhoids were mild and medium-sized. The exam was otherwise without abnormality. Impression: - Non-bleeding internal hemorrhoids. - The examination was otherwise normal. - No specimens collected. Recommendation: - Patient has a contact number available for emergencies. The signs and symptoms of potential delayed complications were discussed with the patient. Return to normal activities tomorrow. Written discharge instructions were provided to the patient. - Resume previous diet. - Continue present medications. - Repeat colonoscopy in 10 years for screening purposes. - Return to primary care physician PRN. Procedure Code(s): --- Professional --- 46268, Colonoscopy, flexible; diagnostic, including collection of specimen(s) by brushing or washing, when performed (separate procedure) Diagnosis Code(s): --- Professional --- Z12.11, Encounter for screening for malignant neoplasm of colon Z86.0101, Personal history of adenomatous and serrated colon polyps K64.8, Other hemorrhoids CPT copyright 2020 [employer] (more content not included)... [facility] Radiology Study observation (narrative) [facility] Comprehensive metabolic 2000 panelon 03-03-2025 Albumin [Mass/Vol] 3.8 g/dL Low 3.9-4.9 [facility] Comment on above: Order Comment: Gabi madden Type: BLOOD SPECIMEN Ordering Facility: [facility] Address: [address] [place] [address] Performed By: #### 2 4323-8, 0-3, #### [facility] CLIA [id number] [address] [place] [facility] ALP [Catalytic activity/Vol] 59 U/L Normal 34-123 [facility] Comment on above: Order Comment: Gabi madden Type: BLOOD SPECIMEN Ordering Facility: [facility] Address: [address] [place] [address] Performed By: #### 2 4323-8, 0-3, #### [facility] CLIA [id number] [address] ALT [Catalytic activity/Vol] 13 U/L Normal 7-38 [facility] Comment on above: Order Comment: Speci men Type: BLOOD SPECIMEN Ordering Facility: [facility] Address: [address] [place] [address] Performed By: #### 2 4323-8, 3040-3, #### [facility] CLIA [id number] [address] [place] [address] [place] Anion gap [Moles/Vol] 9 mmol/L Normal 8-15 [facility] Comment on above: Order Comment: Speci men Type: BLOOD SPECIMEN Ordering Facility: [facility] Address: [address] [place] [address] Performed By: #### 2 4323-8, 3039-3, #### [facility] CLIA [id number] [address] [place] [address] [place] AST [Catalytic activity/Vol] 19 U/L Normal 13-35 [facility] Comment on above: Order Comment: Speci men Type: BLOOD SPECIMEN Ordering Facility: [facility] Address: [address] [place] [address] Performed By: #### 2 4323-8, 0-3, #### [facility] CLIA [id number] [address] [place] [address] [place] Bilirubin [Mass/Vol] 0.3 mg/dL Normal 0.2-1.3 [facility] Comment on above: Order Comment: Speci men Type: BLOOD SPECIMEN Ordering Facility: [facility] Address: [address] [place] [address] Performed By: #### 2 4323-8, 0-3, #### [facility] CLIA [id number] [address] [place] Calcium [Mass/Vol] 8.4 mg/dL Low 8.5-10.2 [facility] Comment on above: Order Comment: Speci men Type: BLOOD SPECIMEN Ordering Facility: [facility] Address: [address] [place] [address] Performed By: #### 2 4323-8, 0-3, #### [facility] CLIA [id number] [address] [place] [address] [place] Chloride [Moles/Vol] 107 mmol/L Normal 98-107 [facility] Comment on above: Order Comment: Gabi madden Type: BLOOD SPECIMEN Ordering Facility: [facility] Address: [address] [place] [address] Performed By: #### 2 4323-8, 3040-3, 09696-2 #### [facility] CLIA [id number] [address] [facility] CO2 [Moles/Vol] 24 mmol/L Normal 22-30 [facility] Comment on above: Order Comment: Gabi madden Type: BLOOD SPECIMEN Ordering Facility: [facility] Address: [address] [place] [address] Performed By: #### 2 4323-8, 3040-3, #### [facility] CLIA [id number] [address] [place] [facility] Creatinine [Mass/Vol] 0.56 mg/dL Low 0.58-0.96 [facility] Comment on above: Order Comment: Gabi madden Type: BLOOD SPECIMEN Ordering Facility: [facility] Address: [address] [place] [address] Performed By: #### 2 4323-8, 3040-3, #### [facility] CLIA [id number] [address] Creatinine and Glomerular filtration rate.predicted panel (S/P/Bld) 112 mL/min/1.73m??? Normal >=60 [facility] Comment on above: Order Comment: Gabi madden Type: BLOOD SPECIMEN Ordering Facility: [facility] Address: [address] [place] [address] Result Comment: Cortney mated Glomerular Filtration Rate (eGFR) is calculated using the 2020 CKD-EPI creatinine equation. This equation utilizes serum creatinine, sex, and age as parameters. The creatinine assay has traceable calibration to isotope dilution-mass spectrometry. Refer to KDIGO guidelines for clinical interpretation. In patients with unstable renal function, e.g. those with acute kidney injury, the eGFR may not accurately reflect actual GFR. Performed By: #### 2 4323-8, 3040-3, #### [facility] CLIA [id number] [address] [place] [address] [place] Glucose [Mass/Vol] 88 mg/dL Normal 74-99 [facility] Comment on above: Order Comment: Gabi [facility] Type: BLOOD SPECIMEN Ordering Facility: [facility] Address: [address] [place] [address] Result Comment: The [employer] (ADA) provides guidance for cutoff values for fasting glucose and random glucose. The ADA defines fasting as no caloric intake for at least 8 hours. Fasting plasma glucose results between 100 to 125 [...] Standards of Medical Care in Diabetes 2016, [employer]. Diabetes Care. 2016.39(Suppl 1). Performed By: #### 2 4323-8, 0-3, #### [facility] CLIA [id number] [address] [place] [address] [place] Potassium [Moles/Vol] 3.7 mmol/L Normal 3.7-5.1 [facility] Comment on above: Order Comment: Gabi [facility] Type: BLOOD SPECIMEN Ordering Facility: [facility] Address: [address] [place] [address] Performed By: #### 2 4323-8, 3040-3, #### [facility] CLIA [id number] [address] [place] [address] [place] Protein [Mass/Vol] 6.3 g/dL Normal 6.3-8.0 [facility] Comment on above: Order Comment: Gabi madden Type: BLOOD SPECIMEN Ordering Facility: [facility] Address: [address] [place] [address] Performed By: #### 2 4323-8, 0-3, #### [facility] CLIA [id number] [address] [place] [address] [place] Sodium [Moles/Vol] 140 mmol/L Normal 136-144 [facility] Comment on above: Order Comment: Speci men Type: BLOOD SPECIMEN Ordering Facility: [facility] Address: [address] [place] [address] Performed By: #### 2 4323-8, 3040-3, 32171-2 #### [facility] CLIA [id number] [address] [place] Urea nitrogen [Mass/Vol] 13 mg/dL Normal 7-21 [facility] Comment on above: Order Comment: Speci men Type: BLOOD SPECIMEN Ordering Facility: [facility] Address: [address] [place] [address] Performed By: #### 2 4323-8, 3040-3, 54127-6 #### [facility] CLIA [id number] [address] [facility] ED NOTEon 03-03-2025 ED NOTE HNO ID: [id number] Author: MEY MESSER, MARTITA Service: ? Author Type: Registered Nurse Type: ED Notes Filed: 03/03/2025 11:11 Note Text: Discharge instructions reviewed with patient via teachback. Pt verbalizes understanding. Pt awake and alert, respirations regular and unlabored. No further questions for this RN. [facility] ED NOTE HNO ID: [id number] Author: DREW DUMONT RN Service: ? Author Type: Registered Nurse Type: ED Notes Filed: 03/03/2025 09:13 Note Text: Bed: ED-11 Expected date: 03/03/25 Expected time: Means of arrival: Comments: PACU [facility] ED PROV NOTEon 03-03-2025 ED PROV NOTE HNO ID: [id number] Author: ADRIAN REECE DO Service: Emergency Medicine Author Type: Physician Type: ED Provider Notes Filed: 03/03/2025 14:34 Note Text: ED Provider Note Patient Name: Anastasia Simpson : 1975 SERVICE DATE: 03/03/25 History Patient presents with: Visual Changes: Pt presents to ED from PACU with c/o blurry/double vision following colonoscopy. 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 Pt denies any pain, dizziness or nausea at this time Anastasia Simpson is a 49-year-old female who is presenting to the emergency department for evaluation of double vision. Patient had a colonoscopy done this morning and after waking up the she noticed some slight vision changes and double vision. She had been awake for about 30 to 40 minutes. They gave her some glucose and it was not significantly improving. For his reason they referred her here. By the time she arrived here to the emergency department she reports that they are improving. Vision is returning to normal. She has no other complaints at this time. PAST MEDICAL HISTORY Diagnosis Date Basal cell carcinoma 2011, 2015 multiple sites High blood pressure History of colonic polyps Moderate major depression, single episode (HCC) 11/13/2020 Other migraine without status migrainosus, not intractable PMH - PAST MEDICAL HISTORY OF irritable bowel syndrome PMH - PAST MEDICAL HISTORY OF back pain PMH - PAST MEDICAL HISTORY OF Injections L4-L5 by Dr Knox in [place] Primary hypertension PAST SURGICAL HISTORY Procedure Laterality Date COLONOSCOPY FLX DX W/COLLJ SPEC WHEN PFRMD 02/28/2020 Colonoscopy-Dr Bryant ESOPHAGOGASTRODUODENO SCOPY TRANSORAL DIAGNOSTIC 02/28/2020 EGD-Dr Bryant LAPAROSCOPIC CHOLECYSTECTOMY 08/26/2018 Dr. Bryant MOHJanessa TRUNK/ARM/LEG 1ST STAGE 5 BLOCKS multiple BCC PAST SURGICAL HISTORY OF 02/2003 x2 discectomy L4-5 S1 PAST SURGICAL HISTORY OF DANDC PAST SURGICAL HISTORY OF 07/11/2004 L5-S1 anterior lumbar interbody fusion with posterior L5-S1 translaminar facet screw on left side and a facet joint screw on the right side, and this would be a 360-degree fusion PAST SURGICAL HISTORY OF 1999 lasix eye surgery PAST SURGICAL HISTORY OF 2003 wisdom teeth S THERMACHOICE UTERINE BALLOON 01/02/15 Hysteroscopy w/ endometrial ablation FAMILY HISTORY Problem Relation Age of Onset Lipids Mother Headache Mother Ischemic Heart Disease Maternal Grandmother Skin Cancer Maternal Grandmother 60 Ischemic Heart Disease Maternal Grandfather other (Melanoma [Other]) Maternal Grandfather 81 Hypertension Paternal Grandmother all grandparents Breast Cancer Paternal Grandmother 66 Breast Cancer Paternal Aunt 45 bilateral Colon Cancer Paternal Aunt 55 other (Kidney Cancer [Other]) Paternal Aunt 55 Breast Cancer Paternal Aunt 40s Breast Cancer Maternal Aunt 50s Social History Tobacco Use Smoking status: Never Smokeless tobacco: Never Vaping Use Vaping status: Never Used Substance and Sexual Activity Alcohol use: No Drug use: No Sexual activity: Yes Partners: Male Comment: ablation ALLERGIES Allergen Reactions Celestone [Betameth* Other: See Comments Cheeks and neck red and hot- felt like she had a fever in top 1/2 of body, other steroids have been ok Codeine GI UPSET, HEART RACES Emgality Pen [Galca* Hives Neurontin [Gabapent* Other: See Comments Extreme dizziness Sulfa (Sulfonamide * UNKNOWN Review of Systems Constitutional: Negative for chills and fever. HENT: Negative for congestion, rhinorrhea and sore throat. Eyes: Positive for visual disturbance. Respiratory: Negative for cough and shortness of breath. Cardiovascular: Negative for chest pain, palpitations and leg swelling. Gastrointestinal: Negative for abdominal pain, diarrhea, nausea and vomiting. Genitourinary: Negative for dysuria and hematuria. Musculoskeletal: Negative for back pain. Skin: Negative for pallor, rash and wound. Neurological: Negative for headaches. Psychiatric/Behaviora l: Negative for confusion. Physical Exam Vitals [03/03/25 0914] BP Pulse Temp Temp src Resp SpO2 Weight Height 121/88 79 36.8 ?C (98.3 ?F) Oral 20 98 % 67.6 kg (149 lb) -- Physical Exam Vitals and nursing note reviewed. Constitutional: General: She is not in acute distress. Appearance: She is well-developed. HENT: Head: Normocephalic and atraumatic. Right Ear: External ear normal. Left Ear: External ear normal. Eyes: General: No scleral icterus. Right eye: No discharge. Left eye: No discharge. Conjunctiva/sclera: Conjunctivae normal. Pupils: Pupils are equal, round, and reactive to light. Cardiovascular: Rate and Rhythm: Normal rate and regular rhythm. Heart sounds: No murmur heard. No friction rub. No gallop. Pulmonary: Effort: Pulmonary effort is normal. No respira (more content not included)... Normal [facility] GLUCOSE, BLOOD (POC)on 03-03 Glucose [Mass/Vol] 99 mg/dL 74 - 99 mg/dL [facility] Comment on above: Location:[facility], [address], [place], [address] The Accu-Chek Inform II glucose meter has not been approved for testing on patients receiving intensive medical intervention or therapy and results from this point of care glucose test should not be used for patient management decisions in these cases. Inaccurate results may also occur from other interfering factors, such as N-acetylcysteine (blood concentrations of greater than 5mg/dL), galactose, extremes of hematocrit (<10 or >65), or high doses of ascorbic acid (vitamin C) greater than 3mg/dL. Consider alternate testing mechanisms (e.g. core lab, blood gas instrument) in the above situations. [facility] HISTORY PHYSICALon HISTORY PHYSICAL HNO ID: [id number] Author: SAGE BRYANT MD Service: General Surgery Author Type: Physician Type: H&P Filed: 03/03/2025 06:51 Note Text: HISTORY AND PHYSICAL Anastasia Simpson : 1975 REFERRING PHYSICIAN: Jacek Scruggs [address] [facility] [address] CHIEF COMPLAINT: Patient presents with: Consult: Hx of colonic polyps HPI: Anastasia is a 49 year old female referred for endoscopy. Anastasia notes due for screening colonoscopy- hx of colon polyps (2019). Anastasia denies abdominal pain.. Anastasia denies diarrhea. Anastasia notes constipation. -d/t opiate medication -takes senna with good relief Anastasia denies a change in bowel habits. Anastasia denies melena. Anastasia denies bright red blood per rectum. Anastasia denies hemorrhoids. Anastasia denies family history of colon issues. Anastasia denies heartburn. Anastasia denies dysphagia. Anastasia denies a history of ulcers/ peptic ulcer disease. Anastasia has a hx of multiple back surgeries- takes norco at night for pain control. Anastasia has undergone prior endoscopy. Last EGD AND colonoscopy was 02/[address] Bryant at [facility]. Sedation:MAC EGD Impressions : - Normal esophagus. - Z-line regular, 42 cm from the incisors. No specimens collected. - Gastritis. Biopsied. - Normal examined duodenum. No specimens collected. COLONOSCOPY Impressions : - One 5 mm polyp in the proximal transverse colon, removed with a hot snare. Resected and retrieved. - The entire examined colon is normal. Biopsied. - The examination was otherwise normal on direct and retroflexion views. MICROSCOPIC DIAGNOSIS A. Antrum biopsy: Mild gastritis. See microscopic description and comment. B. Colon, random biopsy: Fragments of colonic mucosa with focal pigment laden macrophages, consistent with melanosis coli. C. Transverse colon polyp, biopsy: Tubular adenoma. H.Pylori negative CURRENT MEDICATIONS Current Outpatient Medications Medication Sig progesterone micronized (PROMETRIUM) 100 mg capsule Take 100 mg by mouth once daily. estradiol (MINIVELLE, VIVELLE-DOT) 0.0375 mg/24 hr patch Apply 1 patch as directed two times a week. ondansetron orally disintegrating (ZOFRAN ODT) 4 mg disintegrating tablet Take 1 tablet by mouth every 6 hours as needed for nausea/vomiting. HYDROcodone-acetamino phen (NORCO) 5-325 mg per tablet Take 1 tablet by mouth every 6 hours as needed for up to 30 days. SUMAtriptan (IMITREX) 100 mg tablet Take 1 tablet by mouth as needed. omeprazole (PRILOSEC) 20 mg capsule Take 1 capsule by mouth daily before breakfast. 1/2 hr before meal. mometasone (ELOCON) 0.1 % cream Apply 1 application to affected area once daily. famotidine (PEPCID) 20 mg tablet Take 1 tablet by mouth at bedtime as needed. valACYclovir (VALTREX) 1 gram tablet Take 1 tablet by mouth two times a day. propranolol ER (INDERAL LA) 60 mg 24 hr capsule Take 1 capsule by mouth once daily. SENNOSIDES 8.6 MG TAB as needed for constipation peg 3350-Electrolytes (GOLYTELY) 236-22.74-6.74 -5.86 gram suspension Take 4,000 mL by mouth one time only for 1 dose. Refer to printed prep instructions from your provider. No current facility-administered medications for this visit. ALLERGIES: Celestone [Betamethasone Sodium Phosphate], Codeine, Emgality Pen [Galcanezumab-Gnlm], Neurontin [Gabapentin], and Sulfa (Sulfonamide Antibiotics) PAST MEDICAL HISTORY PAST MEDICAL HISTORY Diagnosis Date Basal cell carcinoma 2011, 2015 multiple sites High blood pressure History of colonic polyps Moderate major depression, single episode (HCC) 11/13/2020 Other migraine without status migrainosus, not intractable PMH - PAST MEDICAL HISTORY OF irritable bowel syndrome PMH - PAST MEDICAL HISTORY OF back pain PMH - PAST MEDICAL HISTORY OF Injections L4-L5 by Dr Knox in [place] Primary hypertension PAST SURGICAL HISTORY PAST SURGICAL HISTORY Procedure Laterality Date COLONOSCOPY FLX DX W/COLLJ SPEC WHEN PFRMD 02/28/2020 Colonoscopy-Dr Bryant ESOPHAGOGASTRODUODENO SCOPY TRANSORAL DIAGNOSTIC 02/28/2020 EGD-Dr Bryant LAPAROSCOPIC CHOLECYSTECTOMY 08/26/2018 Dr. Bryant MOHS TRUNK/ARM/LEG 1ST STAGE 5 BLOCKS multiple BCC PAST SURGICAL HISTORY OF 02/2003 x2 discectomy L4-5 S1 PAST SURGICAL HISTORY OF DANDC PAST SURGICAL HISTORY OF 07/11/2004 L5-S1 anterior lumbar interbody fusion with posterior L5-S1 translaminar facet screw on left side and a facet joint screw on the right side, and this would be a 360-degree fusion PAST SURGICAL HISTORY OF 1999 lasix eye surgery PAST SURGICAL HISTORY OF 2003 wisdom teeth S THERMACHOICE UTERINE BALLOON 01/02/15 Hysteroscopy w/ endometrial ablation FAMILY HISTORY FAMILY HISTORY Problem Relation Age of Onset Lipids Mother Headache Mother Ischemic Heart Disease Maternal Grandmother Skin Cancer Maternal Grandmother 60 Ischemic Heart Disease Materna (more content not included)... Normal [facility] Lipase SerPl-cCncon 03-03-20 25 Lipase [Catalytic activity/Vol] 37 U/L Normal 16-61 [facility] Comment on above: Order Comment: [facility] Type: BLOOD SPECIMEN Ordering Facility: [facility] Address: [address] [place] [address] Performed By: #### 2 4323-8, 3039-3, #### [facility] CLIA [id number] [address] [place] [address] [place] [facility] Magnesium [Mass/Vol] 2.0 mg/dL Normal 1.7-2.3 [facility] Comment on above: Order Comment: [facility] Type: BLOOD SPECIMEN Ordering Facility: [facility] Address: [address] [place] [address] Performed By: #### 2 4323-8, 3039-3, #### [facility] [id number] [address] [place] [id number] [place] NURSING PROGon 03-03-2025 NURSING PROG HNO ID: [id number] Author: KIMMY LIGHT, RN Service: Nursing Author Type: Registered Nurse Type: Nursing Progress Note Filed: 03/03/2025 09:02 Note Text: Patient in phase II waking up from anesthesia. Patient states she is having double vision in both eyes and blurry vision in the left eye. Dr. Tello aware. Continuing to monitor patient in phase II. 0816 Dr. Tello at bedside talking to family and patient. Blood sugar 99. 500ml Lactated ringer bolus ordered and running. 0846 Patient states double vision in left eye is slightly better. Bolus completed. 0850 Dr. Tello at patient bedside. Patient agrees to go to the ER. 0900 Report called to to Deniz ANDERS in the ER. [facility] 02-15-2025 [facility] ANASTASIA SIMPSON ([id number]) 1975 F Date Time Provider Department 02/15/25 JACEK SCRUGGS [facility] During your visit today, we recorded the following information about you: Conchis Serrano LPN 02/15/2025 12:38 PM Signed [facility] calling asking for directions to be clarified on the Sumatriptan rx. One tablet every so many hours and max amount for daily use please. Please advise Nati Raya, MARTITA 02/16/2025 12:31 PM Signed Patient calls to check on status of request for sumatriptan. She is completely out of medication and experiencing a migraine. Asking if provider in office today could respond to pharmacy request. [facility] needs to know how many hours and max dose for daily use. Order says once daily so every 24 hours and max dose daily 1? Please call verbal to [facility]. Please review and advise, MARTITA Ortega Jacqueline A, APRN.CNP 02/16/2025 1:54 PM Signed Done- called to pharmacy Coby Sotelo APRN.CNP 02/16/2025 1:54 PM Signed Addended by: COBY SOTELO on: 02/16/2025 01:54 PM Modules accepted: Orders Allergies As of Date: 02/15/2025 Noted Allergy Reaction CELESTONE (BETAMETHASONE SODIUM P*12/19/2010 14 - Other: See Comments Comments: Cheeks and neck red and hot- felt like she had a fever in top 1/2 of body, other steroids have been ok CODEINE 07/01/2004 Comments: GI UPSET, HEART RACES EMGALITY PEN (GALCANEZUMAB-GNLM) 09/02/2024 4 - Hives NEURONTIN (GABAPENTIN) 02/09/2014 14 - Other: See Comments Comments: Extreme dizziness SULFA (SULFONAMIDE ANTIBIOTICS) 07/01/2004 Comments: UNKNOWN Date Reviewed: 01/23/2025 Reviewed by: Quin Mendez APRN.SCHOOL TRANSPORTATION SUPERVISOR - Fully Assessed Reason for Visit: Medication Problem [65] clarify directions on rx [Other] Visit Diagnosis:Other migraine without status migrainosus, not intractable [G43.809] Order(s):SUMAtriptan (IMITREX) 100 mg tabletTake 1 tablet by mouth once daily as needed for migraine headache (see administration instructions) (may repeat once in 24 hours.).Disp: 9 tabletRfl: 11 Prescriptions as of 02/16/2025 - SUMAtriptan (IMITREX) 100 mg tablet Take 1 tablet by mouth once daily as needed for migraine headache (see administration instructions) (may repeat once in 24 hours.). - HYDROcodone-acetamino phen (NORCO) 5-325 mg per tablet Take 1 tablet by mouth every 6 hours as needed for up to 30 days. - progesterone micronized (PROMETRIUM) 100 mg capsule Take 100 mg by mouth once daily. - estradiol (MINIVELLE, VIVELLE-DOT) 0.0375 mg/24 hr patch Apply 1 patch as directed two times a week. - ondansetron orally disintegrating (ZOFRAN ODT) 4 mg disintegrating tablet Take 1 tablet by mouth every 6 hours as needed for nausea/vomiting. - omeprazole (PRILOSEC) 20 mg capsule Take 1 capsule by mouth daily before breakfast. 1/2 hr before meal. - mometasone (ELOCON) 0.1 % cream Apply 1 application to affected area once daily. - valACYclovir (VALTREX) 1 gram tablet Take 1 tablet by mouth two times a day. - propranolol ER (INDERAL LA) 60 mg 24 hr capsule Take 1 capsule by mouth once daily. - SENNOSIDES 8.6 MG TAB as needed for constipation Problem List As Of Date 02/15/2025 Noted Resolved Headache [R51] 10/05/2007 11/07/2009 Postlaminectomy syndrome [M96.1] 11/26/2009 Chronic low back pain [M54.50, G89.29] 10/01/2010 04/09/2015 Visit for wound check [Z51.89] 04/09/2012 06/25/2012 Basal cell carcinoma [C44.91] 11/29/2012 Dysmenorrhea [N94.6] 11/22/2014 08/03/2024 Menorrhagia [N92.0] 11/22/2014 08/03/2024 Migraine [G43.909] 07/17/2017 Chronic insomnia [F51.04] 11/13/2020 Moderate major depression, single episode (HCC)*11/13/2020 05/19/2022 Anxiety [F41.9] 11/13/2022 History of colonic polyps [Z86.0100] 06/01/2023 Neck pain [M54.2] 08/24/2023 Radicular pain in left arm [M79.2] 08/24/2023 Acute left-sided thoracic back pain [M54.6] 08/24/2023 Hypertension [I10] 09/24/2022 Prescriptions ordered this encounter Disp Refills Start End SUMATRIPTAN 100 MG TABLET 9 ta* 11 02/15/2025 02/16/2025 Route: PO Sig: Take 1 tablet by mouth once daily as needed. SUMATRIPTAN 100 MG TABLET 9 ta* 11 02/16/2025 02/16/2026 Route: PO Sig: Take 1 tablet by mouth once daily as needed for migraine headache (see administration instructions) (may repeat once in 24 hours.). Medications Discontinued During This Encounter Prescriptions - SUMAtriptan (IMITREX) 100 mg tablet (Discontinued) Take 1 tablet by mouth as needed. - famotidine (PEPCID) 20 mg tablet (Discontinued) Take 1 tablet by mouth at bedtime as needed. - SUMAtriptan (IMITREX) 100 mg tablet (Discontinued) Take 1 tablet by mouth once daily as needed. Encounter Status:Closed by JACEK SCRUGGS on 02/15/25 [facility] CNOVon 01-25-2025 CN Office Visit (NEUSTF ) ANASTASIA SIMPSON ([id number]) 1975 F Date Time Provider Department 01/25/25 4:25 PM [facility] During your visit today, we recorded the following information about you: Temperature Pulse Blood pressure Weight 97.8 degrees 99/minute 114/89 66.1 kg Last Period 01/23/25 Malou Baez PA-C 01/25/2025 5:34 PM Signed Robyn Webb 2 patient Follow-Up Onabotulinum Toxin A (BotoxTM) for Migraine Indication: Chronic Intractable Migraine Treatment #: 2 Referral Expiration: 04/12/2025 Prior to the initiation of the FIRST treatment with Onabotulinum Toxin A, the patient reported the following average headache frequency over the past 3 MONTHS: Number of moderate-severe migraine days/month: 30 (daily) Number of mild migraine days/month: 0 Number of headache free days/month: 0 (0 headache-free hours) After treatment with Onabotulinum Toxin A: Number of moderate-severe migraine days/month: 30 (daily) Number of mild migraine days/month: 30 (daily) Number of headache free days/month: -30 (-720 headache-free hours) Migraine severity: 0/10 Patient reduction in overall migraine days: No Patient reduction in moderate-severe migraine days: No Patient reduction of headache hours by 100 hours or more: No Side effects: none Wearing off: No The patient has been assessed for disorders which could contribute to breathing or swallowing difficulty, and there is no contraindication with PREEMPT Botox. There is no documented allergic reaction/hypersensiti vity to any botulinum toxin and there is no active infection at proposed injection site. HEADACHE SCORES: 07/10/2024 Headache Questions ID Migraine Screener: 3 (Positive) Initial improvement of headache after botox injection at last visit: Not applicable, I did not have a botox injection at my last visit 05/02/2024 01/09/2025 UMAIR - 2/7 SCORES UMAIR-2 Score 0 0 UMAIR-7 Score 1 1 07/10/2024 Migraine Specific QOL - Higher scores indicate better HRQL Role Function-Restrictive Transformed Score (range: 0-100) 45.71 Role Function-Preventive Transformed Score (range: 0-100) 90 Emotional Function Transformed Score (range: 0-100) 66.67 05/02/2024 12/16/2016 09/29/2016 PHQ-9 Score 2 2 6 BP 114/89 (BP Position: Sitting) Pulse 99 Temp 36.6 ?C (97.8 ?F) (Temporal) Wt 66.1 kg (145 lb 11.6 oz) LMP 01/23/2025 (Exact Date) SpO2 99% BMI 23.52 kg/m? Patient name: Anastasia Simpson : 1975 ALLERGIES Allergen Reactions Celestone [Betameth* Other: See Comments Cheeks and neck red and hot- felt like she had a fever in top 1/2 of body, other steroids have been ok Codeine GI UPSET, HEART RACES Emgality Pen [Galca* Hives Neurontin [Gabapent* Other: See Comments Extreme dizziness Sulfa (Sulfonamide * UNKNOWN UNIVERSAL PROTOCOL / SAFETY CHECKLIST Procedure: Onabotulinum toxin A for migraine Informed Consent Consent Obtained: Written [place] Protocol A moment to CARE was completed SIGN IN Personnel directly involved with the procedure wore the appropriate PPE Special Equipment: N/A Patient/Surrogate Stated/Verified: Patient name, Date of , Relevant allergies and Intended procedure TIME OUT No relevant labs, photos, and/or imaging studies were applicable for review. Consent documented and matches the intended procedure No correct side/site applicable for marking and visibility. No medications required for procedure. No fire risk assessment and interventions applicable. No implant(s) inserted. SIGN OUT No specimen collected. Written Consent Obtained: Written LOT #: [id number] Expiration Date: Month: : 2026 Second vial: LOT #: [id number] Expiration Date: Month: Year: 2026 Injection Sites Left (Units) Left (Sites) Right (Units) Right (Sites) TOTAL (Units) Can Worker 5 1 5 1 10 Procerus Units: 5 Sites: 1 5 Frontalis 10 2 10 2 20 Temporalis 20 4 20 4 40 Occipitalis 15 3 15 3 30 Cervical PSP 10 2 10 2 20 Trapezius 15 3 15 3 30 Total Units used: 155 Total Units wasted: 45 Prior Therapies Duration of Use Dose Side effect Malou Baez PA-C Referring Provider: ROBYN HARRIS [[id number]] Allergies As of Date: 01/25/2025 Noted Allergy Reaction CELESTONE (BETAMETHASONE SODIUM P*12/19/2010 14 - Other: See Comments Comments: Cheeks and neck red and hot- felt like she had a fever in top 1/2 of body, other steroids have been ok CODEINE 07/01/2004 Comments: GI UPSET, HEART RACES EMGALITY PEN (GALCANEZUMAB-GNLM) 09/02/2024 4 - Hives NEURONTIN (GABAPENTIN) 02/09/2014 14 - Other: See Comments Comments: Extreme dizziness SULFA (SULFONAMIDE ANTIBIOTICS) 07/01/2004 Comments: UNKNOWN Date Reviewed: 01/23/2025 Reviewed by: Quin Mendez APRN.SCHOOL TRANSPORTATION SUPERVISOR - Fully Assessed Reason for Visit: Headache [52] Cmt: botox treatment #2 Primary Visit Diagnosis:In (more content not included)... Normal [facility] CNOVon 01-23-2025 CNOV Office Visit (GENSWS ) ANASTASIA SIMPSON ([id number]) 1975 F Date Time Provider Department 01/23/25 11:30 AM QUIN MENDEZ During your visit today, we recorded the following information about you: Temperature Pulse Respiration Blood pressure 97.8 degrees 88/minute 16/minute 124/87 Weight Height 66.7 kg 1.676 m Quin Mendez APRN.CNP 01/23/2025 11:52 AM Signed HISTORY AND PHYSICAL Anastasia Simpson : 1975 REFERRING PHYSICIAN: Jacek Abbasi [address] [facility] [id number] CHIEF COMPLAINT: Patient presents with: Consult: Hx of colonic polyps HPI: Anastasia is a 49 year old female referred for endoscopy. Anastasia notes due for screening colonoscopy- hx of colon polyps (2019). Anastasia denies abdominal pain.. Anastasia denies diarrhea. Anastasia notes constipation. -d/t opiate medication -takes senna with good relief Anastasia denies a change in bowel habits. Anastasia denies melena. Anastasia denies bright red blood per rectum. Anastasia denies hemorrhoids. Anastasia denies family history of colon issues. Anastasia denies heartburn. Anastasia denies dysphagia. Anastasia denies a history of ulcers/ peptic ulcer disease. Anastasia has a hx of multiple back surgeries- takes norco at night for pain control. Anastasia has undergone prior endoscopy. Last EGD AND colonoscopy was 02/[address] Bryant at [facility]. Sedation:MAC EGD Impressions : - Normal esophagus. - Z-line regular, 42 cm from the incisors. No specimens collected. - Gastritis. Biopsied. - Normal examined duodenum. No specimens collected. COLONOSCOPY Impressions : - One 5 mm polyp in the proximal transverse colon, removed with a hot snare. Resected and retrieved. - The entire examined colon is normal. Biopsied. - The examination was otherwise normal on direct and retroflexion views. MICROSCOPIC DIAGNOSIS A. Antrum biopsy: Mild gastritis. See microscopic description and comment. B. Colon, random biopsy: Fragments of colonic mucosa with focal pigment laden macrophages, consistent with melanosis coli. C. Transverse colon polyp, biopsy: Tubular adenoma. H.Pylori negative Current Outpatient Medications Medication Sig progesterone micronized (PROMETRIUM) 100 mg capsule Take 100 mg by mouth once daily. estradiol (MINIVELLE, VIVELLE-DOT) 0.0375 mg/24 hr patch Apply 1 patch as directed two times a week. ondansetron orally disintegrating (ZOFRAN ODT) 4 mg disintegrating tablet Take 1 tablet by mouth every 6 hours as needed for nausea/vomiting. HYDROcodone-acetamino phen (NORCO) 5-325 mg per tablet Take 1 tablet by mouth every 6 hours as needed for up to 30 days. SUMAtriptan (IMITREX) 100 mg tablet Take 1 tablet by mouth as needed. omeprazole (PRILOSEC) 20 mg capsule Take 1 capsule by mouth daily before breakfast. 1/2 hr before meal. mometasone (ELOCON) 0.1 % cream Apply 1 application to affected area once daily. famotidine (PEPCID) 20 mg tablet Take 1 tablet by mouth at bedtime as needed. valACYclovir (VALTREX) 1 gram tablet Take 1 tablet by mouth two times a day. propranolol ER (INDERAL LA) 60 mg 24 hr capsule Take 1 capsule by mouth once daily. SENNOSIDES 8.6 MG TAB as needed for constipation peg 3350-Electrolytes (GOLYTELY) 236-22.74-6.74 -5.86 gram suspension Take 4,000 mL by mouth one time only for 1 dose. Refer to printed prep instructions from your provider. No current facility-administered medications for this visit. ALLERGIES: Celestone [Betamethasone Sodium Phosphate], Codeine, Emgality Pen [Galcanezumab-Gnlm], Neurontin [Gabapentin], and Sulfa (Sulfonamide Antibiotics) PAST MEDICAL HISTORY Diagnosis Date Basal cell carcinoma 2011, 2015 multiple sites High blood pressure History of colonic polyps Moderate major depression, single episode (HCC) 11/13/2020 Other migraine without status migrainosus, not intractable PMH - PAST MEDICAL HISTORY OF irritable bowel syndrome PMH - PAST MEDICAL HISTORY OF back pain PMH - PAST MEDICAL HISTORY OF Injections L4-L5 by Dr Knox in [place] Primary hypertension PAST SURGICAL HISTORY Procedure Laterality Date COLONOSCOPY FLX DX W/COLLJ SPEC WHEN PFRMD 02/28/2020 Colonoscopy-Dr Bryant ESOPHAGOGASTRODUODENO SCOPY TRANSORAL DIAGNOSTIC 02/28/2020 EGD-Dr Bryant LAPAROSCOPIC CHOLECYSTECTOMY 08/26/2018 Dr. Bryant MOHS TRUNK/ARM/LEG 1ST STAGE 5 BLOCKS multiple BCC PAST SURGICAL HISTORY OF 02/2003 x2 discectomy L4-5 S1 PAST SURGICAL HISTORY OF DANDC PAST SURGICAL HISTORY OF 07/11/2004 L5-S1 anterior lumbar interbody fusion with posterior L5-S1 translaminar facet screw on left side and a facet joint screw on the right side, and this would be a 360-degree fusion PAST SURGICAL HISTORY OF 1999 lasix eye surgery PAST SURGICAL HISTORY OF 2003 wisdom teeth S THERMACHOICE UTERINE BALLOON 01/02/15 (more content not included)... Normal [facility] CNOVon 01-16-2025 CNOV Office Visit (FAMPWS ) ANASTASIA SIMPSON ([id number]) 1975 F Date Time Provider Department 01/16/25 6:40 PM JACEK SCRUGGS [facility] During your visit today, we recorded the following information about you: Pulse Blood pressure Weight 81/minute 120/82 64 kg Jacek Scruggs MD 01/16/2025 7:15 PM Signed Patient presents with: Follow Up HPI: Patient presents today for office visit for follow up. Overall doing well. Work is doing well. Emotionally is doing well. Wants to wean off lexapro. Started on estrogen and progesterone. 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 Continues to use pain meds. Has done controlled substance agreement. Tox screens are up to date. Helps with adls. No misuse or abuse. Has seen pain management. Bp is stable. Headaches are so far better since hormones. Note was copied and pasted, without alteration from previous: Chronic pain:oarrs done. Has done controlled substance agreement. Still helps her perform ADLs No misuse or abuse. Has seen pain management. Has been not working quite as well. Discussed if worsens, to pain management. Tox screens done in May No misuse or abuse. Had her first botox treatment for headache. Has not had to use any imtirex. Bp meds are doing well. No chest pain or shortness of breath. Lexapro is working well. Overall is doing well. Will be seeing dermatology in December. Has several skin lesions on skin. New one has central clearing. MEDICATIONS: Current Outpatient Medications Medication Sig progesterone micronized (PROMETRIUM) 100 mg capsule Take 100 mg by mouth once daily. estradiol (MINIVELLE, VIVELLE-DOT) 0.0375 mg/24 hr patch Apply 1 patch as directed two times a week. ondansetron orally disintegrating (ZOFRAN ODT) 4 mg disintegrating tablet Take 1 tablet by mouth every 6 hours as needed for nausea/vomiting. HYDROcodone-acetamino phen (NORCO) 5-325 mg per tablet Take 1 tablet by mouth every 6 hours as needed for up to 30 days. SUMAtriptan (IMITREX) 100 mg tablet Take 1 tablet by mouth as needed. omeprazole (PRILOSEC) 20 mg capsule Take 1 capsule by mouth daily before breakfast. 1/2 hr before meal. mometasone (ELOCON) 0.1 % cream Apply 1 application to affected area once daily. famotidine (PEPCID) 20 mg tablet Take 1 tablet by mouth at bedtime as needed. propranolol ER (INDERAL LA) 60 mg 24 hr capsule Take 1 capsule by mouth once daily. escitalopram oxalate (LEXAPRO) 5 mg tablet Take 1 tablet by mouth once daily. Take 1 tab a day for one week and then increase to 2 tabs a day SENNOSIDES 8.6 MG TAB as needed for constipation valACYclovir (VALTREX) 1 gram tablet Take 1 tablet by mouth two times a day. (Patient taking differently: Take 1,000 mg by mouth as needed (cold sore). BID) No current facility-administered medications for this visit. ALLERGIES: ALLERGIES Allergen Reactions Celestone [Betameth* Other: See Comments Cheeks and neck red and hot- felt like she had a fever in top 1/2 of body, other steroids have been ok Codeine GI UPSET, HEART RACES Emgality Pen [Galca* Hives Neurontin [Gabapent* Other: See Comments Extreme dizziness Sulfa (Sulfonamide * UNKNOWN PAST MEDICAL HISTORY Diagnosis Date Basal cell carcinoma 2011, 2016 multiple sites High blood pressure Moderate major depression, single episode (HCC) 11/13/2020 PMH - PAST MEDICAL HISTORY OF irritable bowel syndrome PMH - PAST MEDICAL HISTORY OF back pain PMH - PAST MEDICAL HISTORY OF Injections L4-L5 by Dr Knox in [place] PAST SURGICAL HISTORY Procedure Laterality Date COLONOSCOPY FLX DX W/COLLJ SPEC WHEN PFRMD 02/28/2020 Colonoscopy-Dr Bryant ESOPHAGOGASTRODUODENO SCOPY TRANSORAL DIAGNOSTIC 02/28/2020 EGD-Dr Bryant LAPAROSCOPIC CHOLECYSTECTOMY 08/26/2018 Dr. Bryant MOHS TRUNK/ARM/LEG 1ST STAGE 5 BLOCKS multiple BCC PAST SURGICAL HISTORY OF 02/2003 x2 discectomy L4-5 S1 PAST SURGICAL HISTORY OF DANDC PAST SURGICAL HISTORY OF 07/11/2004 L5-S1 anterior lumbar interbody fusion with posterior L5-S1 translaminar facet screw on left side and a facet joint screw on the right side, and this would be a 360-degree fusion PAST SURGICAL HISTORY OF 1999 lasix eye surgery PAST SURGICAL HISTORY OF 2003 wisdom teeth S THERMACHOICE UTERINE BALLOON 01/02/15 Hysteroscopy w/ endometrial ablation FAMILY HISTORY Problem Relation Age of Onset Lipids Mother Headache Mother Ischemic Heart Disease Maternal Grandmother Skin Cancer Maternal Grandmother 60 Ischemic Heart Disease Maternal Grandfather other (Melanoma [Other]) Maternal Grandfather 81 Hypertension Paternal Grandmother all grandparents Breast Cancer Paternal Grandmother 66 Breast Cancer Paternal Aunt 45 bilateral Colon Cancer Paternal Aunt 55 other (Kidney Cancer [Other]) Paternal Aunt 55 Breast Cancer Paternal Aunt 40s Breast Cancer Maternal Aunt 50s (more content not included)... Normal [facility] CNOVon 12-15-2024 CNOV Office Visit (FAMPWS ) ANASTASIA SIMPSON ([id number]) 1975 F Date Time Provider Department 12/15/24 11:40 AM COBY SOTELO [facility] During your visit today, we recorded the following information about you: Pulse Respiration Blood pressure Weight 77/minute 16/minute 124/70 65.4 kg Coby Sotelo, 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 12/15/2024 1:08 PM Signed This is a 48 year old female who presents today with: Patient presents with: Headache: Has seen neuro for migraines and and been treated with medrol pack. Patient unable to get this again so soon and asking for alternative treatment. Neuro recommended primary care follow up HISTORY OF PRESENT ILLNESS: Anastasia Simpson is a 48 year old female. Patient presents with: Headache: Has seen neuro for migraines and and been treated with medrol pack. Patient unable to get this again so soon and asking for alternative treatment. Neuro recommended primary care follow up Has had migraines for a long time. Having long runs of migraines- one daily. Getting botox Imitrex not last 24 hours. Vision blurry. Neurology told her to come and get a Toradol shot. On propranolol for a long time Did not tolerate Topamax, reaction to Gabapentin Did not tolerate amitriptyline Has both nausea and vomiting Uses Zofran Hives with Emgality PAST MEDICAL HISTORY: PAST MEDICAL HISTORY Diagnosis Date Basal cell carcinoma 2011, 2015 multiple sites High blood pressure Moderate major depression, single episode (HCC) 11/13/2020 PMH - PAST MEDICAL HISTORY OF irritable bowel syndrome PMH - PAST MEDICAL HISTORY OF back pain PMH - PAST MEDICAL HISTORY OF Injections L4-L5 by Dr Knox in [place] PAST SURGICAL HISTORY Procedure Laterality Date COLONOSCOPY FLX DX W/COLLJ SPEC WHEN PFRMD 02/28/2020 Colonoscopy-Dr Bryant ESOPHAGOGASTRODUODENO SCOPY TRANSORAL DIAGNOSTIC 02/28/2020 EGD-Dr Bryant LAPAROSCOPIC CHOLECYSTECTOMY 08/26/2018 Dr. Bryant MOHS TRUNK/ARM/LEG 1ST STAGE 5 BLOCKS multiple BCC PAST SURGICAL HISTORY OF 02/2003 x2 discectomy L4-5 S1 PAST SURGICAL HISTORY OF DANDC PAST SURGICAL HISTORY OF 07/11/2004 L5-S1 anterior lumbar interbody fusion with posterior L5-S1 translaminar facet screw on left side and a facet joint screw on the right side, and this would be a 360-degree fusion PAST SURGICAL HISTORY OF 1999 lasix eye surgery PAST SURGICAL HISTORY OF 2003 wisdom teeth S THERMACHOICE UTERINE BALLOON 01/02/15 Hysteroscopy w/ endometrial ablation ALLERGIES Celestone [Betamethasone Sodium Phosphate], Codeine, Emgality Pen [Galcanezumab-Gnlm], Neurontin [Gabapentin], and Sulfa (Sulfonamide Antibiotics) MEDICATIONS Current Outpatient Medications Medication Sig omeprazole (PRILOSEC) 20 mg capsule Take 1 capsule by mouth daily before breakfast. 1/2 hr before meal. HYDROcodone-acetamino phen (NORCO) 5-325 mg per tablet Take 1 tablet by mouth every 6 hours as needed for up to 30 days. mometasone (ELOCON) 0.1 % cream Apply 1 application to affected area once daily. famotidine (PEPCID) 20 mg tablet Take 1 tablet by mouth at bedtime as needed. SUMAtriptan (IMITREX) 100 mg tablet Take 1 tablet (100 mg) by mouth as needed. ondansetron orally disintegrating (ZOFRAN ODT) 4 mg disintegrating tablet Take 1 tablet by mouth every 6 hours as needed for nausea/vomiting. valACYclovir (VALTREX) 1 gram tablet Take 1 tablet by mouth two times a day. (Patient taking differently: Take 1,000 mg by mouth as needed (cold sore). BID) propranolol ER (INDERAL LA) 60 mg 24 hr capsule Take 1 capsule by mouth once daily. escitalopram oxalate (LEXAPRO) 5 mg tablet Take 1 tablet by mouth once daily. Take 1 tab a day for one week and then increase to 2 tabs a day SENNOSIDES 8.6 MG TAB as needed for constipation No current facility-administered medications for this visit. FAMILY HISTORY Problem Relation Age of Onset Lipids Mother Headache Mother Ischemic Heart Disease Maternal Grandmother Skin Cancer Maternal Grandmother 60 Ischemic Heart Disease Maternal Grandfather other (Melanoma [Other]) Maternal Grandfather 81 Hypertension Paternal Grandmother all grandparents Breast Cancer Paternal Grandmother 66 Breast Cancer Paternal Aunt 45 bilateral Colon Cancer Paternal Aunt 55 other (Kidney Cancer [Other]) Paternal Aunt 55 Breast Cancer Paternal Aunt 40s Breast Cancer Maternal Aunt 50s Social History Tobacco Use Smoking status: Never Smokeless tobacco: Never Vaping Use Vaping status: Never Used Substance Use Topics Alcohol use: No Drug use: No EXAM: BP 124/70 Pulse 77 Resp 16 Wt 65.4 kg (144 lb 3.2 oz) LMP 07/30/2024 (Approximate) SpO2 99% BMI 23.27 kg/m? PHYSICAL EXAM: Physical Exam Vitals reviewed. Constitutional: Appearance: Normal appearance. HENT: Head: Normocephalic. Cardiovascular: Rate and R (more content not included)... [facility] 11-14-2024 CNOV Office Visit ([facility] ) ANASTASIA SIMPSON ([id number]) 1975 F Date Time Provider Department 11/14/24 6:00 PM [facility] During your visit today, we recorded the following information about you: Pulse Blood pressure 90/minute 128/88 Jacek Scruggs MD 11/14/2024 6:15 PM Signed Patient presents with: Follow Up HPI: Patient presents today for office visit for follow up. Chronic pain:oarrs done. Has done controlled substance agreement. Still helps her perform ADLs No misuse or abuse. Has seen pain management. Has been not working quite as well. Discussed if worsens, to pain management. Tox screens done in May No misuse or abuse. Had her first botox treatment for headache. Has not had to use any imtirex. Bp meds are doing well. No chest pain or shortness of breath. Lexapro is working well. Overall is doing well. Will be seeing dermatology in December. Has several skin lesions on skin. New one has central clearing. MEDICATIONS: Current Outpatient Medications Medication Sig HYDROcodone-acetamino phen (NORCO) 5-325 mg per tablet Take 1 tablet by mouth every 6 hours as needed for up to 31 days. SUMAtriptan (IMITREX) 100 mg tablet Take 1 tablet (100 mg) by mouth as needed. ondansetron orally disintegrating (ZOFRAN ODT) 4 mg disintegrating tablet Take 1 tablet by mouth every 6 hours as needed for nausea/vomiting. omeprazole (PRILOSEC) 20 mg capsule Take 1 capsule by mouth daily before breakfast. 1/2 hr before meal. valACYclovir (VALTREX) 1 gram tablet Take 1 tablet by mouth two times a day. (Patient taking differently: Take 1,000 mg by mouth as needed (cold sore). BID) propranolol ER (INDERAL LA) 60 mg 24 hr capsule Take 1 capsule by mouth once daily. escitalopram oxalate (LEXAPRO) 5 mg tablet Take 1 tablet by mouth once daily. Take 1 tab a day for one week and then increase to 2 tabs a day SENNOSIDES 8.6 MG TAB as needed for constipation No current facility-administered medications for this visit. ALLERGIES: ALLERGIES Allergen Reactions Celestone [Betameth* Other: See Comments Cheeks and neck red and hot- felt like she had a fever in top 1/2 of body, other steroids have been ok Codeine GI UPSET, HEART RACES Emgality Pen [Galca* Hives Neurontin [Gabapent* Other: See Comments Extreme dizziness Sulfa (Sulfonamide * UNKNOWN PAST MEDICAL HISTORY Diagnosis Date Basal cell carcinoma 2011, 2015 multiple sites High blood pressure Moderate major depression, single episode (HCC) 11/13/2020 PMH - PAST MEDICAL HISTORY OF irritable bowel syndrome PMH - PAST MEDICAL HISTORY OF back pain PMH - PAST MEDICAL HISTORY OF Injections L4-L5 by Dr Knox in [place] PAST SURGICAL HISTORY Procedure Laterality Date COLONOSCOPY FLX DX W/COLLJ SPEC WHEN PFRMD 02/28/2020 Colonoscopy-Dr Bryant ESOPHAGOGASTRODUODENO SCOPY TRANSORAL DIAGNOSTIC 02/28/2020 EGD-Dr Bryant LAPAROSCOPIC CHOLECYSTECTOMY 08/26/2018 Dr. Bryant MOHJanessa TRUNK/ARM/LEG 1ST STAGE 5 BLOCKS multiple BCC PAST SURGICAL HISTORY OF 02/2003 x2 discectomy L4-5 S1 PAST SURGICAL HISTORY OF DANDC PAST SURGICAL HISTORY OF 07/11/2004 L5-S1 anterior lumbar interbody fusion with posterior L5-S1 translaminar facet screw on left side and a facet joint screw on the right side, and this would be a 360-degree fusion PAST SURGICAL HISTORY OF 1999 lasix eye surgery PAST SURGICAL HISTORY OF 2003 wisdom teeth S THERMACHOICE UTERINE BALLOON 01/02/15 Hysteroscopy w/ endometrial ablation FAMILY HISTORY Problem Relation Age of Onset Lipids Mother Headache Mother Ischemic Heart Disease Maternal Grandmother Skin Cancer Maternal Grandmother 60 Ischemic Heart Disease Maternal Grandfather other (Melanoma [Other]) Maternal Grandfather 81 Hypertension Paternal Grandmother all grandparents Breast Cancer Paternal Grandmother 66 Breast Cancer Paternal Aunt 45 bilateral Colon Cancer Paternal Aunt 55 other (Kidney Cancer [Other]) Paternal Aunt 55 Breast Cancer Paternal Aunt 40s Breast Cancer Maternal Aunt 50s Social History Tobacco Use Smoking status: Never Smokeless tobacco: Never Vaping Use Vaping status: Never Used Substance Use Topics Alcohol use: No Drug use: No Reviewed current medications, allergies, past medical history, surgical history, family history and social history today. REVIEW OF SYSTEMS All other reviewed and negative other than HPI. HEALTH MAINTENANCE: Reviewed health maintenance issues today and recommended the following in detail. BP Controlled (<130/80) Never done VITALS: BP 128/88 Pulse 90 LMP 07/30/2024 (Approximate) SpO2 100% Last 4 Encounter Wt Readings: Date: Wt: 10/21/2024 66.3 kg (146 lb 4.4 oz) 09/19/2024 64 kg (141 lb) 08/03/2024 64 kg (141 lb) 07/28/2024 64 kg (141 lb 1.5 oz) PHYSICAL EXAMINATION: General appearance: (more content not included)... Normal [facility] CNOVon 10-21-2024 CNOV Office Visit ([facility] ) ANASTASIA SIMPSON ([id number]) 1975 F Date Time Provider Department 10/21/24 3:30 PM ROBYN HARRIS [facility] During your visit today, we recorded the following information about you: Pulse Respiration Blood pressure Weight 63/minute 16/minute 129/91 66.3 kg Robyn Harris PA-C 10/21/2024 3:56 PM Signed New Onabotulinum Toxin A (BotoxTM) for Migraine Indication: Chronic Intractable Migraine Treatment #: 1 Referral Expiration: 04/12/2025 Number of moderate-severe migraine days/month: 30 (daily) Number of mild migraine days/month: 0 Number of headache free days/month: 0 (0 headache-free hours) Migraine severity: 10/10 The patient has been assessed for disorders which could contribute to breathing or swallowing difficulty, and there is no contraindication with PREEMPT Botox. There is no documented allergic reaction/hypersensiti vity to any botulinum toxin and there is no active infection at proposed injection site. HEADACHE SCORES: 07/10/2024 Headache Questions ID Migraine Screener: 3 (Positive) Initial improvement of headache after botox injection at last visit: Not applicable, I did not have a botox injection at my last visit 05/02/2024 UMAIR - 2/7 SCORES UMAIR-2 Score 0 UMAIR-7 Score 1 07/10/2024 Migraine Specific QOL - Higher scores indicate better HRQL Role Function-Restrictive Transformed Score (range: 0-100) 45.71 Role Function-Preventive Transformed Score (range: 0-100) 90 Emotional Function Transformed Score (range: 0-100) 66.67 05/02/2024 12/16/2016 09/29/2016 PHQ-9 Score 2 2 6 BP 129/91 (BP Site: Left Arm, BP Position: Sitting, BP Cuff Size: Regular Adult) Pulse 63 Resp 16 Wt 66.3 kg (146 lb 4.4 oz) LMP 07/30/2024 (Approximate) SpO2 100% BMI 23.61 kg/m? Patient name: Anastasia Simpson : 1975 ALLERGIES Allergen Reactions - Celestone [Betameth* Other: See Comments Cheeks and neck red and hot- felt like she had a fever in top 1/2 of body, other steroids have been ok - Codeine GI UPSET, HEART RACES - Emgality Pen [Galca* Hives - Neurontin [Gabapent* Other: See Comments Extreme dizziness - Sulfa (Sulfonamide * UNKNOWN UNIVERSAL PROTOCOL / SAFETY CHECKLIST Procedure: Onabotulinum toxin A for migraine Informed Consent Consent Obtained: Written [place] Protocol A moment to CARE was completed SIGN IN Personnel directly involved with the procedure wore the appropriate PPE Special Equipment: N/A Patient/Surrogate Stated/Verified: Patient name, Date of , Relevant allergies and Intended procedure TIME OUT Intended patient and procedure match the source document(s) Consent documented and matches the intended procedure No relevant labs, photos, and/or imaging studies were applicable for review. No correct side/site applicable for marking and visibility. No medications required for procedure. No fire risk assessment and interventions applicable. No implant(s) inserted. SIGN OUT No specimen collected. No instruments, equipment or retained foreign bodies applicable. Post-procedure follow-up management communicated and Plan of Care Visit completed when applicable Written Consent Obtained: Written LOT #: [id number] Expiration Date: Month: Year: 2026 Second vial: LOT #: [id number] Expiration Date: Month: 4 Year: 2026 Injection Sites Left (Units) Left (Sites) Right (Units) Right (Sites) TOTAL (Units) Can Worker 5 1 5 1 10 Procerus Units: 5 Sites: 1 5 Frontalis 10 2 10 2 20 Temporalis 20 4 20 4 40 Occipitalis 15 3 15 3 30 Cervical PSP 10 2 10 2 20 Trapezius 15 3 15 3 30 Total Units used: 155 Total Units wasted: 45 Prior Therapies Duration of Use Dose Side effect Lexapro, propranolol, imitrex, norco, zofran Elavil TPM Gabapentin Qulipta denied PT presents for first botox, tolerated procedure well without complications. Currently on propranolol 60mg and imitrex for abortive. Will follow in three months for repeat admin. HORTENSIA Jaimes Melanie, PA-C 10/21/2024 3:40 PM Signed Botox Home Instruction: Instruction after botox injection: - If you have any pain or swelling use ice, 20 min on and 20 min off. Do not rub or massage the area for 48 hrs. - If you have any neck stiffness, you may use heat and do stretching exercises. - This should improve over the next 5 days. - If it does not, call our office for further instructions. Referring Provider: ROBYN HARRIS [[id number]] Allergies As of Date: 10/21/2024 Noted Allergy Reaction CELESTONE (BETAMETHASONE SODIUM P*12/19/2010 14 - Other: See Comments Comments: Cheeks and neck red and hot- felt like she had a fever in top 1/2 of body, other steroids have been ok CODEINE 07/01/2004 Comments: GI UPSET, HEART RACES EMGALITY PEN (GALCANEZUMAB-GNLM) 09/02/2024 4 - Hives NEURONTIN (GABAPENTIN) 02/09/2014 (more content not included)... Normal [facility]PH[facility] 10-13-2024 CNPN Telephone ([facility]) ANASTASIA SIMPSON ([id number]) 1975 F Date Time Provider Department 10/13/24 ROBYN HARRIS During your visit today, we recorded the following information about you: Allergies As of Date: 10/13/2024 Noted Allergy Reaction CELESTONE (BETAMETHASONE SODIUM P*12/19/2010 14 - Other: See Comments Comments: Cheeks and neck red and hot- felt like she had a fever in top 1/2 of body, other steroids have been ok CODEINE 07/01/2004 Comments: GI UPSET, HEART RACES EMGALITY PEN (GALCANEZUMAB-GNLM) 09/02/2024 4 - Hives NEURONTIN (GABAPENTIN) 02/09/2014 14 - Other: See Comments Comments: Extreme dizziness SULFA (SULFONAMIDE ANTIBIOTICS) 07/01/2004 Comments: UNKNOWN Date Reviewed: 10/05/2024 Reviewed by: Robyn Harris PA-C - Fully Assessed Prescriptions as of 10/13/2024 - SUMAtriptan (IMITREX) 100 mg tablet Take 1 tablet (100 mg) by mouth as needed. - ondansetron orally disintegrating (ZOFRAN ODT) 4 mg disintegrating tablet Take 1 tablet by mouth every 6 hours as needed for nausea/vomiting. - HYDROcodone-acetamino phen (NORCO) 5-325 mg per tablet Take 1 tablet by mouth every 6 hours as needed for up to 31 days. - omeprazole (PRILOSEC) 20 mg capsule Take 1 capsule by mouth daily before breakfast. 1/2 hr before meal. - valACYclovir (VALTREX) 1 gram tablet Take 1 tablet by mouth two times a day. - propranolol ER (INDERAL LA) 60 mg 24 hr capsule Take 1 capsule by mouth once daily. - escitalopram oxalate (LEXAPRO) 5 mg tablet Take 1 tablet by mouth once daily. Take 1 tab a day for one week and then increase to 2 tabs a day - SENNOSIDES 8.6 MG TAB as needed for constipation Problem List As Of Date 10/13/2024 Noted Resolved Headache [R51] 10/05/2007 11/07/2009 Postlaminectomy syndrome [M96.1] 11/26/2009 Chronic low back pain [M54.50, G89.29] 10/01/2010 04/09/2015 Visit for wound check [Z51.89] 04/09/2012 06/25/2012 Basal cell carcinoma [C44.91] 11/29/2012 Dysmenorrhea [N94.6] 11/22/2014 08/03/2024 Menorrhagia [N92.0] 11/22/2014 08/03/2024 Migraine [G43.909] 07/17/2017 Chronic insomnia [F51.04] 11/13/2020 Moderate major depression, single episode (HCC)*11/13/2020 05/19/2022 Anxiety [F41.9] 11/13/2022 History of colonic polyps [Z86.0100] 06/01/2023 Neck pain [M54.2] 08/24/2023 Radicular pain in left arm [M79.2] 08/24/2023 Acute left-sided thoracic back pain [M54.6] 08/24/2023 Hypertension [I10] 09/24/2022 Encounter Status:Closed by MARJORIE CARBAJAL on 10/13/24 [facility] Walter 10-12-2024 [place] Telephone (HEATHER) ANASTASIA SIMPSON ([id number]) 1975 F Date Time Provider Department 10/12/24 ROBYN HARRIS During your visit today, we recorded the following information about you: Ashley Contreras LPN 10/12/2024 12:27 PM Signed Pt calling to check the status on the PA for Botox she has been waiting on . Pt was seen last week and has not heard anything. Please advise pt. YAMILETH Barlow Jessica, HEEL SEWER 10/12/2024 1:03 PM Signed Please check on the status of this, I don't see anything in her chart. YAMILETH Arellano Melanie, MARTITA 10/13/2024 9:22 AM Signed New request for Botox entered into referrals. Pending authorization. Allergies As of Date: 10/12/2024 Noted Allergy Reaction CELESTONE (BETAMETHASONE SODIUM P*12/19/2010 14 - Other: See Comments Comments: Cheeks and neck red and hot- felt like she had a fever in top 1/2 of body, other steroids have been ok CODEINE 07/01/2004 Comments: GI UPSET, HEART RACES EMGALITY PEN (GALCANEZUMAB-GNLM) 09/02/2024 4 - Hives NEURONTIN (GABAPENTIN) 02/09/2014 14 - Other: See Comments Comments: Extreme dizziness SULFA (SULFONAMIDE ANTIBIOTICS) 07/01/2004 Comments: UNKNOWN Date Reviewed: 10/05/2024 Reviewed by: Robyn Harris PA-C - Fully Assessed Reason for Visit: botox PA [Other] Prescriptions as of 10/18/2024 - SUMAtriptan (IMITREX) 100 mg tablet Take 1 tablet (100 mg) by mouth as needed. - ondansetron orally disintegrating (ZOFRAN ODT) 4 mg disintegrating tablet Take 1 tablet by mouth every 6 hours as needed for nausea/vomiting. - HYDROcodone-acetamino phen (NORCO) 5-325 mg per tablet Take 1 tablet by mouth every 6 hours as needed for up to 31 days. - omeprazole (PRILOSEC) 20 mg capsule Take 1 capsule by mouth daily before breakfast. 1/2 hr before meal. - valACYclovir (VALTREX) 1 gram tablet Take 1 tablet by mouth two times a day. - propranolol ER (INDERAL LA) 60 mg 24 hr capsule Take 1 capsule by mouth once daily. - escitalopram oxalate (LEXAPRO) 5 mg tablet Take 1 tablet by mouth once daily. Take 1 tab a day for one week and then increase to 2 tabs a day - SENNOSIDES 8.6 MG TAB as needed for constipation Problem List As Of Date 10/12/2024 Noted Resolved Headache [R51] 10/05/2007 11/07/2009 Postlaminectomy syndrome [M96.1] 11/26/2009 Chronic low back pain [M54.50, G89.29] 10/01/2010 04/09/2015 Visit for wound check [Z51.89] 04/09/2012 06/25/2012 Basal cell carcinoma [C44.91] 11/29/2012 Dysmenorrhea [N94.6] 11/22/2014 08/03/2024 Menorrhagia [N92.0] 11/22/2014 08/03/2024 Migraine [G43.909] 07/17/2017 Chronic insomnia [F51.04] 11/13/2020 Moderate major depression, single episode (HCC)*11/13/2020 05/19/2022 Anxiety [F41.9] 11/13/2022 History of colonic polyps [Z86.0100] 06/01/2023 Neck pain [M54.2] 08/24/2023 Radicular pain in left arm [M79.2] 08/24/2023 Acute left-sided thoracic back pain [M54.6] 08/24/2023 Hypertension [I10] 09/24/2022 Encounter Status:Closed by [facility]IV[facility] ANASTASIA SIMPSON ([id number]) 1975 F Date Time Provider Department 10/05/24 4:00 PM ROBYN HARRIS During your visit today, we recorded the following information about you: Pulse Blood pressure 83/minute 132/95 Robyn Harris PA-C 10/05/2024 4:21 PM Signed [facility] for General Neurology Follow up CC: Headache Follow up Last Visit: 09/02/24 ASSESSMENT/PLAN: 1. Intractable chronic migraine with aura and without status migrainosus - ICD9: 346.01, ICD10: G43.E19 Patient presents for follow-up appointment for headaches. Notes that Emgality was extremely effective for her headaches however had allergic reaction to this. Describes hives to the injection sites that worsened with her second round. Due to this reaction, will refrain from using any further injectables. Did not experience any angioedema or respiratory issues. However, due to the effectiveness of the medication we use a similar type of medication with Qulipta 60 mg to take daily for prevention of migraine. Notes Imitrex is still effective for her, recently had a refill. No new symptoms that would warrant additional workup at this time. Patient agreeable to treatment plan of care at this time, questions were answered. Patient to follow-up in 2 to 3 months. Today: Patient is here for headache/migraine follow up. Last seen on 09/02/24 for headaches. Getting 8-10 on emgality and imitrex, however had an allergic rxn. Started qulipta 60mg. Saw PCP and noted interest in botox. Since last visit headaches have worsened. Notes that since mid August she has had a continuous headache, has fluctuated up and down but is never fully relieved. Has been taking Imitrex as much as possible, 10 times a month, which seems to help dull the headache but never fully relieves it. Unsure what caused the headache other than coming off the Emgality. Notes that the headache starts in the back of the neck and radiates upward. Of note, did have cosmetic Botox to the forehead on the 6th of this month. Does not that the cosmetic Botox does not seem to help much with her headaches. Current Headache treatment Preventative: Propranolol 60 mg, Lexapro Abortive: Imitrex Medications effective? yes # of doses of abortive medications per month: 10 Total headache days per month: daily Total headache attacks per month: daily Headache free days: No Duration of attacks: continuously Severity of headaches? severe Location: posterior headache . Aura: blurry but no aura Accompanying symptoms: phonophobia, nausea, vomiting, vertigo, neck pain . Quality:throbbing and stabbing . Worse with activity: Yes Pain today: 8/10 Triggers: menses. Prodrome:none. Tobacco Use: No. Alcohol Use: No Caffeine:Yes: Once daily Prior Therapies Lexapro, propranolol, imitrex, norco, zofran Elavil TPM Gabapentin Qulipta denied The patient's prior records were reviewed including and lab testing, imaging, and procedures done since their last visit with me. Review of symptoms including constitutional, eyes, ENT, neck, respiratory, cardiovascular, GI, , musculoskeletal, hematologic, oncologic, endocrine, and psychiatric categories is unchanged. No new details in the family history or social history were offered by the patient. PAST MEDICAL HISTORY Diagnosis Date Basal cell carcinoma 2011, 2015 multiple sites High blood pressure Moderate major depression, single episode (HCC) 11/13/2020 PMH - PAST MEDICAL HISTORY OF irritable bowel syndrome PMH - PAST MEDICAL HISTORY OF back pain PMH - PAST MEDICAL HISTORY OF Injections L4-L5 by Dr Knox in [place] PAST SURGICAL HISTORY Procedure Laterality Date COLONOSCOPY FLX DX W/COLLJ SPEC WHEN PFRMD 02/28/2020 Colonoscopy-Dr Bryant ESOPHAGOGASTRODUODENO SCOPY TRANSORAL DIAGNOSTIC 02/28/2020 EGD-Dr Bryant LAPAROSCOPIC CHOLECYSTECTOMY 08/26/2018 Dr. Bryant MOHS TRUNK/ARM/LEG 1ST STAGE 5 BLOCKS multiple BCC PAST SURGICAL HISTORY OF 02/2003 x2 discectomy L4-5 S1 PAST SURGICAL HISTORY OF DANDC PAST SURGICAL HISTORY OF 07/11/2004 L5-S1 anterior lumbar interbody fusion with posterior L5-S1 translaminar facet screw on left side and a facet joint screw on the right side, and this would be a 360-degree fusion PAST SURGICAL HISTORY OF 1999 lasix eye surgery PAST SURGICAL HISTORY OF 2003 wisdom teeth S THERMACHOICE UTERINE BALLOON 01/02/15 Hysteroscopy w/ endometrial ablation ALLERGIES Allergen Reactions Celestone [Betameth* Other: See Comments Cheeks and neck red and hot- felt like she had a fever in top 1/2 of body, other steroids have been ok Codeine GI UPSET, HEART RACES Emgality Pen [Galca* Hives Neurontin [Gabapent* Other: See Comments Extreme dizziness Sulfa (Sulfonamide * UNKNOWN Current Medications: ondan (more content not included)... Normal [facility] CNOVon 09-19-2024 CNOV Office Visit (FAMPWS ) ANASTASIA SIMPSON ([id number]) 1975 F Date Time Provider Department 09/19/24 5:20 PM JACEK SCRUGGSWS During your visit today, we recorded the following information about you: Pulse Blood pressure Weight 72/minute 124/72 64 kg Jacek Scruggs MD 09/19/2024 5:35 PM Signed Patient presents with: Follow Up HPI: Patient presents today for office visit for follow up. GERD: no reflux. No new derm issues. Chronic pain:oarrs done. Has done controlled substance agreement. Still helps her perform ADLs No misuse or abuse. Has seen pain management. Has been not working quite as well. Discussed if worsens, to pain management. Tox screens done in May. Psych: lexapro is overall doing well. Discussed stopping possibly in spring Having worsening headaches. Has seen neurology. Qulipta was stopped. Would like to have botox. MEDICATIONS: Current Outpatient Medications Medication Sig atogepant (QULIPTA) 60 mg tablet Take 1 tablet (60 mg) by mouth once daily. HYDROcodone-acetamino phen (NORCO) 5-325 mg per tablet Take 1 tablet by mouth every 6 hours as needed for up to 31 days. omeprazole (PRILOSEC) 20 mg capsule Take 1 capsule by mouth daily before breakfast. 1/2 hr before meal. ondansetron orally disintegrating (ZOFRAN ODT) 4 mg disintegrating tablet Take 1 tablet by mouth every 6 hours as needed for nausea/vomiting. valACYclovir (VALTREX) 1 gram tablet Take 1 tablet by mouth two times a day. (Patient taking differently: Take 1,000 mg by mouth as needed (cold sore). BID) SUMAtriptan (IMITREX) 100 mg tablet Take 1 tablet (100 mg) by mouth as needed. propranolol ER (INDERAL LA) 60 mg 24 hr capsule Take 1 capsule by mouth once daily. escitalopram oxalate (LEXAPRO) 5 mg tablet Take 1 tablet by mouth once daily. Take 1 tab a day for one week and then increase to 2 tabs a day SENNOSIDES 8.6 MG TAB as needed for constipation No current facility-administered medications for this visit. ALLERGIES: ALLERGIES Allergen Reactions Celestone [Betameth* Other: See Comments Cheeks and neck red and hot- felt like she had a fever in top 1/2 of body, other steroids have been ok Codeine GI UPSET, HEART RACES Emgality Pen [Galca* Hives Neurontin [Gabapent* Other: See Comments Extreme dizziness Sulfa (Sulfonamide * UNKNOWN PAST MEDICAL HISTORY Diagnosis Date Basal cell carcinoma 2011, 2015 multiple sites High blood pressure Moderate major depression, single episode (HCC) 11/13/2020 PMH - PAST MEDICAL HISTORY OF irritable bowel syndrome PMH - PAST MEDICAL HISTORY OF back pain PMH - PAST MEDICAL HISTORY OF Injections L4-L5 by Dr Knox in [place] PAST SURGICAL HISTORY Procedure Laterality Date COLONOSCOPY FLX DX W/COLLJ SPEC WHEN PFRMD 02/28/2020 Colonoscopy-Dr Bryant ESOPHAGOGASTRODUODENO SCOPY TRANSORAL DIAGNOSTIC 02/28/2020 EGD-Dr Bryant LAPAROSCOPIC CHOLECYSTECTOMY 08/26/2018 Dr. Bryant MOHS TRUNK/ARM/LEG 1ST STAGE 5 BLOCKS multiple BCC PAST SURGICAL HISTORY OF 02/2003 x2 discectomy L4-5 S1 PAST SURGICAL HISTORY OF DANDC PAST SURGICAL HISTORY OF 07/11/2004 L5-S1 anterior lumbar interbody fusion with posterior L5-S1 translaminar facet screw on left side and a facet joint screw on the right side, and this would be a 360-degree fusion PAST SURGICAL HISTORY OF 1999 lasix eye surgery PAST SURGICAL HISTORY OF 2003 wisdom teeth S THERMACHOICE UTERINE BALLOON 01/02/15 Hysteroscopy w/ endometrial ablation FAMILY HISTORY Problem Relation Age of Onset Lipids Mother Headache Mother Ischemic Heart Disease Maternal Grandmother Skin Cancer Maternal Grandmother 60 Ischemic Heart Disease Maternal Grandfather other (Melanoma [Other]) Maternal Grandfather 81 Hypertension Paternal Grandmother all grandparents Breast Cancer Paternal Grandmother 66 Breast Cancer Paternal Aunt 45 bilateral Colon Cancer Paternal Aunt 55 other (Kidney Cancer [Other]) Paternal Aunt 55 Breast Cancer Paternal Aunt 40s Breast Cancer Maternal Aunt 50s Social History Tobacco Use Smoking status: Never Smokeless tobacco: Never Vaping Use Vaping status: Never Used Substance Use Topics Alcohol use: No Drug use: No Reviewed current medications, allergies, past medical history, surgical history, family history and social history today. REVIEW OF SYSTEMS All other reviewed and negative other than HPI. HEALTH MAINTENANCE: Reviewed health maintenance issues today and recommended the following in detail. There are no preventive care reminders to display for this patient. VITALS: BP 124/72 Pulse 72 Wt 64 kg (141 lb) LMP 07/30/2024 (Approximate) SpO2 98% BMI 22.76 kg/m? Last 4 Encounter Wt Readings: Date: Wt: 09/19/2024 64 kg (141 lb) 08/03/2024 64 kg (141 lb) 07/28/2024 64 kg (141 lb 1.5 oz) 07/12/2024 65 kg (more content not included)... Normal [facility] CNPNon 09-08-2024 CNPN Telephone (HEATHER) ANASTASIA SIMPSON ([id number]) 1975 F Date Time Provider Department 09/08/24 ROBYN HARRIS During your visit today, we recorded the following information about you: Mariel Johnston, MARTITA 09/08/2024 11:09 AM Signed Patient calling to give message to MARANDA Jaimes that her [employer] insurance will not cover her Atogepant medication. Patient asking if provider could recommend an alternative medication? Please call patient with update. Thank you. Marjorie Carbajal LPN 09/09/2024 11:01 AM Signed Robyn Harris PA-C You2 hours ago (8:25 AM) MQ We can try a medication called lyrica, it is not a specific migraine medication but can be very helpful. We would start at a lower dose twice daily. Please confirm that patient would like to try this. HORTENSIA Jaimes Samaria, LPN 09/09/2024 11:01 AM Signed Called patient no answer, Left voicemail. Marjorie Carbajal LPN September 09, 2024 11:01 AM Renuka Hernandez RN 09/09/2024 11:23 AM Signed Patient calls back and states that she is not comfortable with the Lyrica. Patient is asking about botox for her migraines? Please review and advise, MARTITA Núñez Samaria, LPN 09/09/2024 1:38 PM Signed Robyn Harris PA-C You1 hour ago (12:24 PM) MQ Unfortunately for botox to be covered, she needs to have 15+ headaches in a month. At last appointment she was having 8-10 on average. If her headaches worsen this could be an option. Marjorie Carbajal LPN 09/09/2024 1:39 PM Signed Spoke to patient, verified name and date of . Advised patient of message below, patient verbalized understanding. Patient states she will wait to see if PA gets approved then go from there. Marjorie Carbajal LPN September 09, 2024 1:39 PM Allergies As of Date: 09/08/2024 Noted Allergy Reaction CELESTONE (BETAMETHASONE SODIUM P*12/19/2010 14 - Other: See Comments Comments: Cheeks and neck red and hot- felt like she had a fever in top 1/2 of body, other steroids have been ok CODEINE 07/01/2004 Comments: GI UPSET, HEART RACES EMGALITY PEN (GALCANEZUMAB-GNLM) 09/02/2024 4 - Hives NEURONTIN (GABAPENTIN) 02/09/2014 14 - Other: See Comments Comments: Extreme dizziness SULFA (SULFONAMIDE ANTIBIOTICS) 07/01/2004 Comments: UNKNOWN Date Reviewed: 09/02/2024 Reviewed by: Robyn Harris PA-C - Fully Assessed Reason for Visit: Patient Request [1696] Prescriptions as of 09/09/2024 - atogepant (QULIPTA) 60 mg tablet Take 1 tablet (60 mg) by mouth once daily. - HYDROcodone-acetamino phen (NORCO) 5-325 mg per tablet Take 1 tablet by mouth every 6 hours as needed for up to 31 days. - omeprazole (PRILOSEC) 20 mg capsule Take 1 capsule by mouth daily before breakfast. 1/2 hr before meal. - ondansetron orally disintegrating (ZOFRAN ODT) 4 mg disintegrating tablet Take 1 tablet by mouth every 6 hours as needed for nausea/vomiting. - valACYclovir (VALTREX) 1 gram tablet Take 1 tablet by mouth two times a day. - SUMAtriptan (IMITREX) 100 mg tablet Take 1 tablet (100 mg) by mouth as needed. - propranolol ER (INDERAL LA) 60 mg 24 hr capsule Take 1 capsule by mouth once daily. - escitalopram oxalate (LEXAPRO) 5 mg tablet Take 1 tablet by mouth once daily. Take 1 tab a day for one week and then increase to 2 tabs a day - SENNOSIDES 8.6 MG TAB as needed for constipation Problem List As Of Date 09/08/2024 Noted Resolved Headache [R51] 10/05/2007 11/07/2009 Postlaminectomy syndrome [M96.1] 11/26/2009 Chronic low back pain [M54.50, G89.29] 10/01/2010 04/09/2015 Visit for wound check [Z51.89] 04/09/2012 06/25/2012 Basal cell carcinoma [C44.91] 11/29/2012 Dysmenorrhea [N94.6] 11/22/2014 08/03/2024 Menorrhagia [N92.0] 11/22/2014 08/03/2024 Migraine [G43.909] 07/17/2017 Chronic insomnia [F51.04] 11/13/2020 Moderate major depression, single episode (HCC)*11/13/2020 05/19/2022 Anxiety [F41.9] 11/13/2022 History of colonic polyps [Z86.0100] 06/01/2023 Neck pain [M54.2] 08/24/2023 Radicular pain in left arm [M79.2] 08/24/2023 Acute left-sided thoracic back pain [M54.6] 08/24/2023 Hypertension [I10] 09/24/2022 Encounter Status:Closed by MARJORIE CARBAJAL on 09/09/24 [facility] Telephone ([facility]) ANASTASIA SIMPSON ([id number]) 1975 F Date Time Provider Department 09/08/24 ROBYN HARRIS [facility] During your visit today, we recorded the following information about you: Lian Rivero MA 09/08/2024 4:45 PM Signed Received Prior Authorization request via: From [facility] Medication being Authorized: Qulipta 60 mg Completed PA via: Completed form, placed on providers desk for signature, form needs faxed to: [phone] (as stated on form) Reference number/ Provider: ANUSHA Haney Heidi, MA 09/08/2024 4:45 PM Signed Request completed and faxed. ANUSHA Hicks Sherrie, RN 09/09/2024 11:39 AM Signed Patient updated. MARTITA Mcgill Melanie, RN 09/09/2024 5:04 PM Addendum Received fax denial from [facility] in [place]. Showed the denial to Robyn Harris PA-C and it will be sent to the [facility]. Allergies As of Date: 09/08/2024 Noted Allergy Reaction CELESTONE (BETAMETHASONE SODIUM P*12/19/2010 14 - Other: See Comments Comments: Cheeks and neck red and hot- felt like she had a fever in top 1/2 of body, other steroids have been ok CODEINE 07/01/2004 Comments: GI UPSET, HEART RACES EMGALITY PEN (GALCANEZUMAB-GNLM) 09/02/2024 4 - Hives NEURONTIN (GABAPENTIN) 02/09/2014 14 - Other: See Comments Comments: Extreme dizziness SULFA (SULFONAMIDE ANTIBIOTICS) 07/01/2004 Comments: UNKNOWN Date Reviewed: 09/02/2024 Reviewed by: Robyn Harris PA-C - Fully Assessed Reason for Visit: Prior Auth: Qulipta [Other] Prescriptions as of 09/09/2024 - atogepant (QULIPTA) 60 mg tablet Take 1 tablet (60 mg) by mouth once daily. - HYDROcodone-acetamino phen (NORCO) 5-325 mg per tablet Take 1 tablet by mouth every 6 hours as needed for up to 31 days. - omeprazole (PRILOSEC) 20 mg capsule Take 1 capsule by mouth daily before breakfast. 1/2 hr before meal. - ondansetron orally disintegrating (ZOFRAN ODT) 4 mg disintegrating tablet Take 1 tablet by mouth every 6 hours as needed for nausea/vomiting. - valACYclovir (VALTREX) 1 gram tablet Take 1 tablet by mouth two times a day. - SUMAtriptan (IMITREX) 100 mg tablet Take 1 tablet (100 mg) by mouth as needed. - propranolol ER (INDERAL LA) 60 mg 24 hr capsule Take 1 capsule by mouth once daily. - escitalopram oxalate (LEXAPRO) 5 mg tablet Take 1 tablet by mouth once daily. Take 1 tab a day for one week and then increase to 2 tabs a day - SENNOSIDES 8.6 MG TAB as needed for constipation Problem List As Of Date 09/08/2024 Noted Resolved Headache [R51] 10/05/2007 11/07/2009 Postlaminectomy syndrome [M96.1] 11/26/2009 Chronic low back pain [M54.50, G89.29] 10/01/2010 04/09/2015 Visit for wound check [Z51.89] 04/09/2012 06/25/2012 Basal cell carcinoma [C44.91] 11/29/2012 Dysmenorrhea [N94.6] 11/22/2014 08/03/2024 Menorrhagia [N92.0] 11/22/2014 08/03/2024 Migraine [G43.909] 07/17/2017 Chronic insomnia [F51.04] 11/13/2020 Moderate major depression, single episode (HCC)*11/13/2020 05/19/2022 Anxiety [F41.9] 11/13/2022 History of colonic polyps [Z86.0100] 06/01/2023 Neck pain [M54.2] 08/24/2023 Radicular pain in left arm [M79.2] 08/24/2023 Acute left-sided thoracic back pain [M54.6] 08/24/2023 Hypertension [I10] 09/24/2022 Encounter Status:Closed by LIAN RIVERO on 09/08/24 Normal [facility] SKY SCREENING W TOMOon 08-30 SKY SCREENING W NICOLA * * *Final Report* * * DATE OF EXAM: Aug 30 2024 7:41AM [id number] - SKY SCREENING W NICOLA / PROCEDURE REASON: Screening breast examination * * * * Physician Interpretation * * * * RESULT: [place] [address] #[id number] - SKY SCREENING W NICOLA HISTORY: Patient is 48 years old and is seen for screening and is asymptomatic in both breasts. Patient states no personal history of breast cancer. Patient states no personal history of other cancers. COMPARISON STUDIES: The present examination has been compared to a prior imaging study dated 08/12/2023 (mammogram). MAMMOGRAM TECHNIQUE: The study was acquired using full field digital technology and interpreted from soft copy. MAMMOGRAM FINDINGS: The breasts are heterogeneously dense, which may obscure small masses. No suspicious masses, calcifications or other abnormalities are seen in either breast. There are no significant interval changes. IMPRESSION: There is no mammographic evidence of malignancy. Routine screening mammogram is recommended. Annual mammogram will be due in 1 year. BI-RADS Category 1: Negative RISK: Based on the Tyrer-Cuzick (TC) risk assessment model, this patient has a 14.5% lifetime risk of developing breast cancer, meaning they are at average risk for developing breast cancer. However, this is only an estimate based on available history provided on the patient's questionnaire. We encourage all patients to talk with their providers about these results, further recommendations for managing breast health, and appropriate supplemental screening options if the patient has dense breast tissue. Interpreting Radiologist: Eliana Wheeler M.D. Electronically signed on: 08/31/2024 Tubing Tester: JOY Transcribe Date/Time: Aug 30 2024 7:21A Dictated by: ELLA JEWELL MD This examination was interpreted and the report reviewed and electronically signed by: ELIANA WHEELER MD on Aug 31 2024 8:01AM EST [id number] Normal [facility] 08-29-2024 [facility] Telephone (FAMWS) ANASTASIA SIMPSON ([id number]) 1975 Date Time Provider Department 08/29/24 JACEK SCRUGGS [facility] During your visit today, we recorded the following information about you: Nati Raya RN 08/29/2024 9:07 AM Signed Prior Authorization Documentation Prior authorization requested for the following medication: Medication: Omeprazole Provider: Dr. Scruggs Insurance Company Name: [employer] Phone number: Patient ID number: [id number] RXBIN: [id number] RXGRP: [id number] Pharmacy Name: [facility] Telephone number: [phone] MARTITA Ortega Janice, LPN 08/29/2024 9:18 AM Signed Electronic PA requested. Rachele Santana LPN 08/29/2024 9:24 AM Signed Unable to complete this electronically. Will try on covermymeds Rachele Santana LPN 08/29/2024 9:24 AM Signed ANASTASIA SIMPSON ([employer]: [id number]) - [id number] Omeprazole 20MG dr zimmerman status: PA Request Created: August 24, 2024 Sent: August 29, 2024 Rachele Santana LPN 08/29/2024 2:04 PM Addendum Your request has been denied Your PA request has been denied. Additional information will be provided in the denial communication. We reviewed the diagnosis and information we received with the request, but it did not allow us to approve the requested medication for the following reason: The diagnosis submitted is not a covered diagnosis.?*Please note: The following medications (included in this class) are not approvable for the submitted diagnosis: dexlansoprazole, esomeprazole, lansoprazole, omeprazole, pantoprazole, rabeprazole. With PA it did not allow the office to enter a dx only pick from what was there. None of dx was GERD so picked other. Will see about appeal, although Goodrx would be very affordable. Rachele Santana LPN 08/29/2024 2:37 PM Signed Appeal requested faxed to [phone]. Rachele Santana LPN 08/30/2024 9:27 AM Signed The appeal was still denied. This is in scanned documents. Pt notified via my chart. Allergies As of Date: 08/29/2024 Noted Allergy Reaction CELESTONE (BETAMETHASONE SODIUM P*12/19/2010 14 - Other: See Comments Comments: Cheeks and neck red and hot- felt like she had a fever in top 1/2 of body, other steroids have been ok CODEINE 07/01/2004 Comments: GI UPSET, HEART RACES NEURONTIN (GABAPENTIN) 02/09/2014 14 - Other: See Comments Comments: Extreme dizziness SULFA (SULFONAMIDE ANTIBIOTICS) 07/01/2004 Comments: UNKNOWN Date Reviewed: 08/03/2024 Reviewed by: Judith Newman APRN.SCHOOL TRANSPORTATION SUPERVISOR - Fully Assessed Reason for Visit: Insurance Authorization [1693] Prescriptions as of 08/31/2024 - omeprazole (PRILOSEC) 20 mg capsule Take 1 capsule by mouth daily before breakfast. 1/2 hr before meal. - ondansetron orally disintegrating (ZOFRAN ODT) 4 mg disintegrating tablet Take 1 tablet by mouth every 6 hours as needed for nausea/vomiting. - HYDROcodone-acetamino phen (NORCO) 5-325 mg per tablet Take 1 tablet by mouth every 6 hours as needed for up to 31 days. - valACYclovir (VALTREX) 1 gram tablet Take 1 tablet by mouth two times a day. - galcanezumab-gnln 120 mg/mL subcutaneous syringe (EMGALITY) Inject 2 mL subcutaneously once every month. Do not shake. - galcanezumab-gnln 120 mg/mL subcutaneous syringe (EMGALITY) Inject 1 mL subcutaneously once every month. Do not shake. - SUMAtriptan (IMITREX) 100 mg tablet Take 1 tablet (100 mg) by mouth as needed. - propranolol ER (INDERAL LA) 60 mg 24 hr capsule Take 1 capsule by mouth once daily. - escitalopram oxalate (LEXAPRO) 5 mg tablet Take 1 tablet by mouth once daily. Take 1 tab a day for one week and then increase to 2 tabs a day - SENNOSIDES 8.6 MG TAB as needed for constipation Problem List As Of Date 08/29/2024 Noted Resolved Headache [R51] 10/05/2007 11/07/2009 Postlaminectomy syndrome [M96.1] 11/26/2009 Chronic low back pain [M54.50, G89.29] 10/01/2010 04/09/2015 Visit for wound check [Z51.89] 04/09/2012 06/25/2012 Basal cell carcinoma [C44.91] 11/29/2012 Dysmenorrhea [N94.6] 11/22/2014 08/03/2024 Menorrhagia [N92.0] 11/22/2014 08/03/2024 Migraine [G43.909] 07/17/2017 Chronic insomnia [F51.04] 11/13/2020 Moderate major depression, single episode (HCC)*11/13/2020 05/19/2022 Anxiety [F41.9] 11/13/2022 History of colonic polyps [Z86.0100] 06/01/2023 Neck pain [M54.2] 08/24/2023 Radicular pain in left arm [M79.2] 08/24/2023 Acute left-sided thoracic back pain [M54.6] 08/24/2023 Hypertension [I10] 09/24/2022 Encounter Status:Closed by RACHELE SANTANA on 08/31/24 Normal [facility] CNPN Telephone (HEATHER) ANASTASIA SIMPSON ([id number]) 1975 F Date Time Provider Department 08/29/24 ROBYN HARRIS During your visit today, we recorded the following information about you: Christelle Warner OCCA 08/29/2024 8:12 AM Signed Received PA renewal request for patients Emgality. Previous PA 08/28/24. Submitted on CoverMyMeds using [employer]: [id number]. Please watch for determination. Thank you. ALFONSO Murphy Gillian, OCCA 08/29/2024 10:12 AM Signed Received fax from insurance that PA is current for Emgality and another authorization is not needed at this time. Scanned to patients records. ALFONSO Murphy Allergies As of Date: 08/29/2024 Noted Allergy Reaction CELESTONE (BETAMETHASONE SODIUM P*12/19/2010 14 - Other: See Comments Comments: Cheeks and neck red and hot- felt like she had a fever in top 1/2 of body, other steroids have been ok CODEINE 07/01/2004 Comments: GI UPSET, HEART RACES NEURONTIN (GABAPENTIN) 02/09/2014 14 - Other: See Comments Comments: Extreme dizziness SULFA (SULFONAMIDE ANTIBIOTICS) 07/01/2004 Comments: UNKNOWN Date Reviewed: 08/03/2024 Reviewed by: Judith Newman APRN.SCHOOL TRANSPORTATION SUPERVISOR - Fully Assessed Reason for Visit: Insurance Authorization [1693] Cmt: Emgality Renewal Prescriptions as of 08/29/2024 - omeprazole (PRILOSEC) 20 mg capsule Take 1 capsule by mouth daily before breakfast. 1/2 hr before meal. - ondansetron orally disintegrating (ZOFRAN ODT) 4 mg disintegrating tablet Take 1 tablet by mouth every 6 hours as needed for nausea/vomiting. - HYDROcodone-acetamino phen (NORCO) 5-325 mg per tablet Take 1 tablet by mouth every 6 hours as needed for up to 31 days. - valACYclovir (VALTREX) 1 gram tablet Take 1 tablet by mouth two times a day. - galcanezumab-gnln 120 mg/mL subcutaneous syringe (EMGALITY) Inject 2 mL subcutaneously once every month. Do not shake. - galcanezumab-gnln 120 mg/mL subcutaneous syringe (EMGALITY) Inject 1 mL subcutaneously once every month. Do not shake. - SUMAtriptan (IMITREX) 100 mg tablet Take 1 tablet (100 mg) by mouth as needed. - propranolol ER (INDERAL LA) 60 mg 24 hr capsule Take 1 capsule by mouth once daily. - escitalopram oxalate (LEXAPRO) 5 mg tablet Take 1 tablet by mouth once daily. Take 1 tab a day for one week and then increase to 2 tabs a day - SENNOSIDES 8.6 MG TAB as needed for constipation Problem List As Of Date 08/29/2024 Noted Resolved Headache [R51] 10/05/2007 11/07/2009 Postlaminectomy syndrome [M96.1] 11/26/2009 Chronic low back pain [M54.50, G89.29] 10/01/2010 04/09/2015 Visit for wound check [Z51.89] 04/09/2012 06/25/2012 Basal cell carcinoma [C44.91] 11/29/2012 Dysmenorrhea [N94.6] 11/22/2014 08/03/2024 Menorrhagia [N92.0] 11/22/2014 08/03/2024 Migraine [G43.909] 07/17/2017 Chronic insomnia [F51.04] 11/13/2020 Moderate major depression, single episode (HCC)*11/13/2020 05/19/2022 Anxiety [F41.9] 11/13/2022 History of colonic polyps [Z86.0100] 06/01/2023 Neck pain [M54.2] 08/24/2023 Radicular pain in left arm [M79.2] 08/24/2023 Acute left-sided thoracic back pain [M54.6] 08/24/2023 Hypertension [I10] 09/24/2022 Encounter Status:Closed by CHRISTELLE WARNER on 08/29/24 Normal [facility] CNCOon 08-11-2024 CNCO Letter Text [facility] CNPHalley 08-08-2024 CNPN Telephone (HEATHER) ANASTASIA SIMPSON ([id number]) 1975 F Date Time Provider Department 08/08/24 ROBYN HARRIS During your visit today, we recorded the following information about you: Conchis Serrano LPN 08/08/2024 11:04 AM Signed Patient calling she started the Emgality injections after having her appt mid June. Patient said a week after the first injection, the injection site is red and warm to touch, has tiny bumps, tender to touch. Patient said the second injection site is doing the same thing, a week after the injection, she said gets more red after each day goes on. Patient asking if that a normal thing after the injections? Patient asking if she needs to stop taking the injections? Please advise Marjorie Carbajal LPN 08/10/2024 1:02 PM Signed Called patient, no answer. VM identify pt by first name. LVM regarding message below. Marjorie Carbajal LPN August 10, 2024 1:02 PM Robyn Harris PA-C Neuro [id number] minutes ago (12:08 PM) MQ This could be an allergic reaction, would encourage patient to stop this medication and follow up to discuss other medication options. If she has any trouble breathing please go to the ER. Robyn Harris PA-C Allergies As of Date: 08/08/2024 Noted Allergy Reaction CELESTONE (BETAMETHASONE SODIUM P*12/19/2010 14 - Other: See Comments Comments: Cheeks and neck red and hot- felt like she had a fever in top 1/2 of body, other steroids have been ok CODEINE 07/01/2004 Comments: GI UPSET, HEART RACES NEURONTIN (GABAPENTIN) 02/09/2014 14 - Other: See Comments Comments: Extreme dizziness SULFA (SULFONAMIDE ANTIBIOTICS) 07/01/2004 Comments: UNKNOWN Date Reviewed: 08/03/2024 Reviewed by: Judith Newman APRN.SCHOOL TRANSPORTATION SUPERVISOR - Fully Assessed Reason for Visit: Medication Question [1978] Prescriptions as of 08/10/2024 - HYDROcodone-acetamino phen (NORCO) 5-325 mg per tablet Take 1 tablet by mouth every 6 hours as needed for up to 31 days. - valACYclovir (VALTREX) 1 gram tablet Take 1 tablet by mouth two times a day. - galcanezumab-gnln 120 mg/mL subcutaneous syringe (EMGALITY) Inject 2 mL subcutaneously once every month. Do not shake. - galcanezumab-gnln 120 mg/mL subcutaneous syringe (EMGALITY) Inject 1 mL subcutaneously once every month. Do not shake. - SUMAtriptan (IMITREX) 100 mg tablet Take 1 tablet (100 mg) by mouth as needed. - omeprazole (PRILOSEC) 20 mg capsule Take 1 capsule by mouth daily before breakfast. 1/2 hr before meal. - propranolol ER (INDERAL LA) 60 mg 24 hr capsule Take 1 capsule by mouth once daily. - escitalopram oxalate (LEXAPRO) 5 mg tablet Take 1 tablet by mouth once daily. Take 1 tab a day for one week and then increase to 2 tabs a day - SENNOSIDES 8.6 MG TAB as needed for constipation Problem List As Of Date 08/08/2024 Noted Resolved Headache [R51] 10/05/2007 11/07/2009 Postlaminectomy syndrome [M96.1] 11/26/2009 Chronic low back pain [M54.50, G89.29] 10/01/2010 04/09/2015 Visit for wound check [Z51.89] 04/09/2012 06/25/2012 Basal cell carcinoma [C44.91] 11/29/2012 Dysmenorrhea [N94.6] 11/22/2014 08/03/2024 Menorrhagia [N92.0] 11/22/2014 08/03/2024 Migraine [G43.909] 07/17/2017 Chronic insomnia [F51.04] 11/13/2020 Moderate major depression, single episode (HCC)*11/13/2020 05/19/2022 Anxiety [F41.9] 11/13/2022 History of colonic polyps [Z86.0100] 06/01/2023 Neck pain [M54.2] 08/24/2023 Radicular pain in left arm [M79.2] 08/24/2023 Acute left-sided thoracic back pain [M54.6] 08/24/2023 Hypertension [I10] 09/24/2022 Encounter Status:Closed by MARJORIE CARBAJAL on 08/10/24 Normal [facility] CNOVon 08-03-2024 CNOV Office Visit (OBGYWM ) ANASTASIA SIMPSON ([id number]) 1975 F Date Time Provider Department 08/03/24 7:30 AM JUDITH NEWMAN OBGYWM During your visit today, we recorded the following information about you: Blood pressure Weight Height Last Period 102/60 64 kg 1.676 m 07/30/24 Judith Newman APRN.SCHOOL TRANSPORTATION SUPERVISOR 08/03/2024 7:55 AM Signed Area Operations Director offered: Patient declines. Anastasia is a 48 year old who presents for an annual gynecologic exam without complaints. Menses: cycles every 25-30 days and 5 days of flow. Has started skip some Contraception: none HPV vaccine: No Last Pap: 07/30/2018 normal HPV: 07/27/2018 negative History of abnormal pap: No Last mammogram: 2022normal Sexually active: Yes Patient concerns for STD exposure: No. Pain with intercourse: No Postcoital bleeding: No OB History T0 L1 SAB0 IAB0 Ectopic0 Multiple0 Live Births0 Comment: 1 vaginal delivery Automotive Consultant History LMP: 07/30/2024 (Approximate), Having periods Age at Menarche: Age at First : Age at Menopause: Automotive Consultant History Comments: Sexual Activity: Yes; Male; ablation Contraception: No contraception data on record PAST MEDICAL HISTORY Diagnosis Date Basal cell carcinoma 2011, 2016 multiple sites High blood pressure Moderate major depression, single episode (HCC) 11/13/2020 PMH - PAST MEDICAL HISTORY OF irritable bowel syndrome PMH - PAST MEDICAL HISTORY OF back pain PMH - PAST MEDICAL HISTORY OF Injections L4-L5 by Dr Knox in [place] PAST SURGICAL HISTORY Procedure Laterality Date COLONOSCOPY FLX DX W/COLLJ SPEC WHEN PFRMD 02/28/2020 Colonoscopy-Dr Bryant ESOPHAGOGASTRODUODENO SCOPY TRANSORAL DIAGNOSTIC 02/28/2020 EGD-Dr Bryant LAPAROSCOPIC CHOLECYSTECTOMY 08/26/2018 Dr. Bryant MOHS TRUNK/ARM/LEG 1ST STAGE 5 BLOCKS multiple BCC PAST SURGICAL HISTORY OF 02/2003 x2 discectomy L4-5 S1 PAST SURGICAL HISTORY OF DANDC PAST SURGICAL HISTORY OF 07/11/2004 L5-S1 anterior lumbar interbody fusion with posterior L5-S1 translaminar facet screw on left side and a facet joint screw on the right side, and this would be a 360-degree fusion PAST SURGICAL HISTORY OF 1999 lasix eye surgery PAST SURGICAL HISTORY OF 2003 wisdom teeth S THERMACHOICE UTERINE BALLOON 01/02/15 Hysteroscopy w/ endometrial ablation FAMILY HISTORY Problem Relation Age of Onset Lipids Mother Headache Mother Ischemic Heart Disease Maternal Grandmother Skin Cancer Maternal Grandmother 60 Ischemic Heart Disease Maternal Grandfather other (Melanoma [Other]) Maternal Grandfather 81 Hypertension Paternal Grandmother all grandparents Breast Cancer Paternal Grandmother 66 Breast Cancer Paternal Aunt 45 bilateral Colon Cancer Paternal Aunt 55 other (Kidney Cancer [Other]) Paternal Aunt 55 Breast Cancer Paternal Aunt 40s Breast Cancer Maternal Aunt 50s SOCIAL HISTORY Social History Tobacco Use Smoking status: Never Smokeless tobacco: Never Vaping Use Vaping status: Never Used Substance Use Topics Alcohol use: No Drug use: No REVIEW OF SYSTEMS Abdomen: No abdominal pain, nausea, vomiting, diarrhea, or constipation. No bloating, early satiety, indigestion, or increased flatulence. Bladder: No dysuria, gross hematuria, urinary frequency, urinary urgency, +stress incontinence. Breast: No breast lumps, nipple d/c, overlying skin changes, redness or skin retraction. Allergies and current medication updated:Yes SENSITIVE EXAM: The sensitive examination was discussed with the Patient or Patient's Authorized Glass Melt Operator. As applicable, any other physician, advance practice provider, medical student, or other health professional student that will be observing or involved in the sensitive examination for educational or training purposes was discussed with the Patient or Authorized Glass Melt Operator. The Patient or Authorized Glass Melt Operator has agreed to proceed with the sensitive examination. (Sensitive examination includes inspection and/or palpation of the breasts, pelvis, prostate and anorectal regions). EXAM: BP 102/60 Ht 5' 6 (1.68m) Wt 141 lb (64.0kg) LMP 07/30/2024 BMI 22.77 kg/(m2). GENERAL: pleasant, female in no apparent distress HEENT: Normocephalic, atraumatic, mucus membranes moist, and no lesions NECK: Supple, full range of motion, no adenopathy, and thyroid normal DERMATOLOGY: Normal, without lesions, non-icteric, and non-hirsute BREAST: soft, non-tender, symmetric, no dominant mass, normal nipple-areolar complex, no lymphadenopathy, and no nipple discharge CHEST: Normal inspiratory effort ABDOMEN: soft, non-tender, and no masses PELVIC: external genitalia normal, normal Bartholin's glands, urethra, Carmel's glands, no vulvar lesions, no cervical lesions, good vaginal support, physiologic discharge present, normal appearing p (more content not included)... Normal [facility] HIGH RISK HUMAN PAPILLOMA HARISH (HPV), PCR FOR DETECTION AND GENOTYPINGon 08-03-2024 HPV 16 Ag Ql (Unsp spec) Not detected Normal Not detec fransisco [facility] Comment on above: Order Comment: Speci men Type: FLUID SPECIMENOrdering Facility: [facility] Address: [address] [place] [address] Performed By: #### H PVHRT ####[facility] [id number] [place] [address] [place] HPV 18 Ag Ql (Unsp spec) Not detected Normal Not detec [facility] Comment on above: Order Comment: Speci men Type: FLUID SPECIMENOrdering Facility: [facility] Address: [address] [place] [address] Performed By: #### H PVHRT ####[facility] [id number] [place] [address] [place] HPV 31+33+35+39+45+51+52+56+ 58+59+66+68 DNA BRANDYN+probe Ql (Cvx) Not detected Normal Not detected [facility] Comment on above: Order Comment: Speci men Type: FLUID SPECIMENOrdering Facility: [facility] Address: [address] [place] [address] Result Comment: High Risk HPV Other Type includes HPV types 31, 33, 35, 39, 45, 51, 52, 56, 58, 59, 66 and 68. Performed By: #### H PVHRT ####[facility] LABCLIA [id number] [place] [id number] [place] PAP TESTon 08-03-2024 ADEQUACY Satisfactory for interpretation. Normal [facility] Comment on above: Order Comment: Speci men Type: FLUID SPECIMENOrdering Facility: [facility] Address: [address] [place] [address] Performed By: #### L [id number] ####[facility] LABCLIA [id number] [address] [place] CASE REPORT Normal [facility] Comment on above: Order Comment: Speci men Type: FLUID SPECIMENOrdering Facility: [facility] Address: [address] [place] [address] Result Comment: Gyne cologic Cytology Report Case: [id number] Authorizing Provider: Judith Newman APRN.SCHOOL TRANSPORTATION SUPERVISOR Collected: 08/03/2024 07:50 AM Ordering Location: OB/Gynecology Received: 08/03/2024 11:14 AM First Screen: Monica Riley, GAUTAM, ASCP Pathologist: Arlette Mccray MD Specimen: Pap Test, ThinPrep, Cervix Performed By: #### L [id number] ####[facility] LABCLIA [id number] [place] [address] [place] CLINICAL HISTORY, CYTOLOGY, DRILL GRINDER Routine Exam Normal [facility] Comment on above: Order Comment: Speci men Type: FLUID SPECIMENOrdering Facility: [facility] Address: [address] [place] [address] Performed By: #### L [id number] ####[facility] LABCLIA [id number] [place] [id number] [place] CYTOLOGY PAP OTHER INTERPRETATION Endometrial cells present in a woman 45 years or older (see comment). Normal [facility] Comment on above: Order Comment: Speci men Type: FLUID SPECIMENOrdering Facility: [facility] Address: [address] [place] [address] Performed By: #### L [id number] ####[facility] LABCLIA [id number] [place] [address] [place] DIAGNOSIS COMMENT Endometrial cells in women 45 years or older, may be associated with benign endometrium, hormonal alterations and less commonly, endometrial or uterine abnormalities. Endometrial evaluation is recommended in postmenopausal women. Normal [facility] Comment on above: Order Comment: Speci men Type: FLUID SPECIMENOrdering Facility: [facility] Address: [address] [place] [address] Performed By: #### L [id number] ####[facility] LABCLIA [id number] [place] [address] [place] FINAL PERFORMING LAB Normal [facility] Comment on above: Order Comment: Speci men Type: FLUID SPECIMENOrdering Facility: [facility] Address: [address] [place] [address] Result Comment: Tech nical component, lead developer screening performed at [facility], [address] [place] [address] CLIA# [id number] Diagnostic interpretation performed at [facility], [address] [place], [place] [id number] CLIA# [id number] Director Supplier Quality: Mat Ulrich M.D. Performed By: #### L [id number] ####[facility] LABCLIA [id number] [place] [address] [place] INTERPRETATION, CYTOLOGY, DRILL GRINDER Abnormal [facility] Comment on above: Order Comment: Speci men Type: FLUID SPECIMENOrdering Facility: [facility] Address: [address] [place] [address] Result Comment: Atyp ical squamous cells of undetermined significance (ASC-US). Performed By: #### L [id number] ####[facility] LABCLIA [id number] [place] [id number] [place] LMP 07/30/2024 Normal [facility] Comment on above: Order Comment: Speci men Type: FLUID SPECIMENOrdering Facility: [facility] Address: [address] [place] [address] Performed By: #### L [id number] ####[facility] LABCLIA [id number] [place] [address] [place] PAP DISCLAIMER COMMENT The Pap Smear is a screening test for cervical cancer. False negative results occur with all screening tests, emphasizing the need for rescreening at recommended intervals, and clinical correlation. Normal [facility] Comment on above: Order Comment: Speci men Type: FLUID SPECIMENOrdering Facility: [facility] Address: [address] [place] [address] Performed By: #### L [id number] ####[facility] LABCLIA [id number] [place] [address] [place] PAP GENERAL CATEGORIZATION Epithelial Cell Abnormality Normal [facility] Comment on above: Order Comment: Speci men Type: FLUID SPECIMENOrdering Facility: [facility] Address: [address] [place] [address] Performed By: #### L [id number] ####[facility] LABCLIA [id number] [place] [id number] [place] PAP SYNTHETIC GEM PRESS OPERATOR COMMENT This specimen has been analyzed by the ThinPrep Imaging System, an automated imaging and review system, which assists the laboratory in evaluating cells on ThinPrep Pap tests. Following automated imaging, selected dutton from every slide are reviewed by a lead developer. Normal [facility] Comment on above: Order Comment: Speci men Type: FLUID SPECIMENOrdering Facility: [facility] Address: [address] [place] [address] Performed By: #### L [id number] ####[facility] LABCLIA [id number] [place] [address] [place] CNPNon 11-08-2024 [facility] ANASTASIA SIMPSON ([id number]) 1975 F Date Time Provider Department 07/29/24 DILLON KIM [facility] During your visit today, we recorded the following information about you: Dillon Kim APRN.BOONE 07/29/2024 3:23 PM Signed Call Patient let her know the official reading of the EKG came back and was negative. Keep the follow-up appointment with primary care Donna Chen MA 07/29/2024 6:10 PM Signed Left VM instructing patient to return call to receive results. ANUSHA Frances Sabrina, MA 07/31/2024 1:12 PM Signed Pt seen results on MyChart Kaveh Walters MA Allergies As of Date: 07/29/2024 Noted Allergy Reaction CELESTONE (BETAMETHASONE SODIUM P*12/19/2010 14 - Other: See Comments Comments: Cheeks and neck red and hot- felt like she had a fever in top 1/2 of body, other steroids have been ok CODEINE 07/01/2004 Comments: GI UPSET, HEART RACES NEURONTIN (GABAPENTIN) 02/09/2014 14 - Other: See Comments Comments: Extreme dizziness SULFA (SULFONAMIDE ANTIBIOTICS) 07/01/2004 Comments: UNKNOWN Date Reviewed: 07/28/2024 Reviewed by: Marysol Williamson LPN - Fully Assessed Reason for Visit: Results [95] Prescriptions as of 07/31/2024 - cyclobenzaprine (FLEXERIL) 10 mg tablet Take 1 tablet by mouth two times a day as needed for muscle spasm for up to 10 days. - predniSONE (DELTASONE) 10 mg tablet Take 4 tabs daily for 3 days, then 2 tabs daily for 3 days, then 1 tab daily for 3 days with food. - valACYclovir (VALTREX) 1 gram tablet Take 1 tablet by mouth two times a day. - galcanezumab-gnln 120 mg/mL subcutaneous syringe (EMGALITY) Inject 2 mL subcutaneously once every month. Do not shake. - galcanezumab-gnln 120 mg/mL subcutaneous syringe (EMGALITY) Inject 1 mL subcutaneously once every month. Do not shake. - SUMAtriptan (IMITREX) 100 mg tablet Take 1 tablet (100 mg) by mouth as needed. - HYDROcodone-acetamino phen (NORCO) 5-325 mg per tablet Take 1 tablet by mouth every 6 hours as needed for up to 31 days. - omeprazole (PRILOSEC) 20 mg capsule Take 1 capsule by mouth daily before breakfast. 1/2 hr before meal. - propranolol ER (INDERAL LA) 60 mg 24 hr capsule Take 1 capsule by mouth once daily. - escitalopram oxalate (LEXAPRO) 5 mg tablet Take 1 tablet by mouth once daily. Take 1 tab a day for one week and then increase to 2 tabs a day - SENNOSIDES 8.6 MG TAB as needed for constipation Problem List As Of Date 07/29/2024 Noted Resolved Headache [R51] 10/05/2007 11/07/2009 Postlaminectomy syndrome [M96.1] 11/26/2009 Chronic low back pain [M54.50, G89.29] 10/01/2010 04/09/2015 Visit for wound check [Z51.89] 04/09/2012 06/25/2012 Basal cell carcinoma [C44.91] 11/29/2012 Dysmenorrhea [N94.6] 11/22/2014 Menorrhagia [N92.0] 11/22/2014 Migraine [G43.909] 07/17/2017 Chronic insomnia [F51.04] 11/13/2020 Moderate major depression, single episode (HCC)*11/13/2020 05/19/2022 Anxiety [F41.9] 11/13/2022 History of colonic polyps [Z86.0100] 06/01/2023 Neck pain [M54.2] 08/24/2023 Radicular pain in left arm [M79.2] 08/24/2023 Acute left-sided thoracic back pain [M54.6] 08/24/2023 Encounter Status:Closed by KAVEH WALTERS on 07/31/24 Normal [facility] Bacteria Ur Culton Bacteria identified Cx Nom (U) CULTURE, URINE: No growth (<1,000 CFU/ml) Normal [facility] Comment on above: Performed By: #### 6 30-4 ####[facility] LABCLIA [id number] [facility] [id number] [place] [address] CNOVon 07-28-2024 CNOV Office Visit (UCWSTR ) ANASTASIA SIMPSON ([id number]) 1975 F Date Time Provider Department 07/28/24 1:15 PM DILLON KIM [facility] During your visit today, we recorded the following information about you: Temperature Pulse Respiration Blood pressure 97.7 degrees 78/minute 18/minute 129/96 Weight Last Period 64 kg 07/08/24 Dillon Kim APRN.SCHOOL TRANSPORTATION SUPERVISOR 07/28/2024 2:53 PM Signed Subjective Patient came in with complaints of lower back pain bilaterally. Patient says she normally has back pain on the right due to previous surgeries. Patient says she never usually has it on the left. Patient says she was in a car for 3 hours slept in a hotel bed and another 3-hour drive home. Patient says that the only thing she has done differently. Denies any injuries to the area. Has had this going on for about 6 days. Said about 6 weeks ago she had a similar pain mixed with a little lower abdominal pain that she had a stat CT for that was negative for any acute findings. Patient also has mild nausea indigestion with some pressure accompanying the lower back pain for the last 6 days. Patient does have a history of indigestion. Patient denies any shortness of breath or other symptoms associated. The history is provided by the patient. No speech language pathologist assistant was used. Review of Systems Constitutional: Negative. Skin: Negative. Objective Physical Exam Constitutional: Appearance: Normal appearance. Cardiovascular: Rate and Rhythm: Normal rate and regular rhythm. Heart sounds: Normal heart sounds. Pulmonary: Effort: Pulmonary effort is normal. Breath sounds: Normal breath sounds. Musculoskeletal: Legs: Comments: Tender in the area marked above when palpated. Neurological: Mental Status: She is alert. PAST MEDICAL HISTORY Diagnosis Date Basal cell carcinoma 2011, 2015 multiple sites High blood pressure Moderate major depression, single episode (HCC) 11/13/2020 PMH - PAST MEDICAL HISTORY OF irritable bowel syndrome PMH - PAST MEDICAL HISTORY OF back pain PMH - PAST MEDICAL HISTORY OF Injections L4-L5 by Dr Knox in [place] PAST SURGICAL HISTORY Procedure Laterality Date COLONOSCOPY FLX DX W/COLLJ SPEC WHEN PFRMD 02/28/2020 Colonoscopy-Dr Bryant ESOPHAGOGASTRODUODENO SCOPY TRANSORAL DIAGNOSTIC 02/28/2020 EGD-Dr Bryant LAPAROSCOPIC CHOLECYSTECTOMY 08/26/2018 Dr. Bryant MOHS TRUNK/ARM/LEG 1ST STAGE 5 BLOCKS multiple BCC PAST SURGICAL HISTORY OF 02/2003 x2 discectomy L4-5 S1 PAST SURGICAL HISTORY OF DANDC PAST SURGICAL HISTORY OF 07/11/2004 L5-S1 anterior lumbar interbody fusion with posterior L5-S1 translaminar facet screw on left side and a facet joint screw on the right side, and this would be a 360-degree fusion PAST SURGICAL HISTORY OF 1999 lasix eye surgery PAST SURGICAL HISTORY OF 2003 wisdom teeth S THERMACHOICE UTERINE BALLOON 01/02/15 Hysteroscopy w/ endometrial ablation ALLERGIES Celestone [Betamethasone Sodium Phosphate], Codeine, Neurontin [Gabapentin], and Sulfa (Sulfonamide Antibiotics) MEDICATIONS valACYclovir (VALTREX) 1 gram tablet Take 1 tablet by mouth two times a day. galcanezumab-gnln 120 mg/mL subcutaneous syringe (EMGALITY) Inject 2 mL subcutaneously once every month. Do not shake. galcanezumab-gnln 120 mg/mL subcutaneous syringe (EMGALITY) Inject 1 mL subcutaneously once every month. Do not shake. SUMAtriptan (IMITREX) 100 mg tablet Take 1 tablet (100 mg) by mouth as needed. HYDROcodone-acetamino phen (NORCO) 5-325 mg per tablet Take 1 tablet by mouth every 6 hours as needed for up to 31 days. omeprazole (PRILOSEC) 20 mg capsule Take 1 capsule by mouth daily before breakfast. 1/2 hr before meal. propranolol ER (INDERAL LA) 60 mg 24 hr capsule Take 1 capsule by mouth once daily. ondansetron orally disintegrating (ZOFRAN ODT) 4 mg disintegrating tablet Take 1 tablet by mouth every 6 hours as needed for nausea/vomiting. escitalopram oxalate (LEXAPRO) 5 mg tablet Take 1 tablet by mouth once daily. Take 1 tab a day for one week and then increase to 2 tabs a day SENNOSIDES 8.6 MG TAB as needed for constipation FAMILY HISTORY Problem Relation Age of Onset Lipids Mother Headache Mother Ischemic Heart Disease Maternal Grandmother Skin Cancer Maternal Grandmother 60 Ischemic Heart Disease Maternal Grandfather other (Melanoma [Other]) Maternal Grandfather 81 Hypertension Paternal Grandmother all grandparents Breast Cancer Paternal Grandmother 66 Breast Cancer Paternal Aunt 45 bilateral Colon Cancer Paternal Aunt 55 other (Kidney Cancer [Other]) Paternal Aunt 55 Breast Cancer Paternal Aunt 40s Breast Cancer Maternal Aunt 50s Social History Tobacco Use Smoking status: Never Smokeless tobacco: Never Vaping Use Vaping status: Never Used Substance Use Topics Alcohol use: No Drug use: No ASSESSM (more content not included)... Normal [facility] ECG COMPLETEon 07-28-2024 ECG COMPLETE Ventricular Rate : 6 8 BPM Atrial Rate : 68 BPM P-R Interval : 146 ms QRS Duration : 88 ms Q-T Interval : 404 ms QTC Calculation(Bazett) : 429 ms Calculated P Herrick : 70 degrees Calculated R Herrick : 18 degrees Calculated T Herrick : 50 degrees NORMAL SINUS RHYTHM NORMAL ECG Confirmed by MD JENSEN GREGORY () on 07/29/2024 3:17:23 PM NAME : ANASTASIA SIMPSON PID : [id number] : 1975 Gender : Female Race : ORD : [id number] Procedure Date : Jul 28 2024 13:46:57 Edit Date : Jul 29 2024 15:17:24 Diagnosis: NORMAL SINUS RHYTHM NORMAL ECG Confirmed by MD JENSEN GREGORY () on 07/29/2024 3:17:23 PM Test Reason : Location : [facility] : [facility] Overread By : MD JENSEN GREGORY Edited By : MD JENSEN GREGORY Referred By : MARC KOENIG Acquired by : Herson RIDLEY [facility] No Panel Informationon 07-28 Radiology Study observation (narrative) [facility] UA DIP, URINE (POC)on 2023 BILIRUBIN UA (POCT) Negative Negative [facility] CLARITY UA (POCT) Clear [facility] COLOR UA (POCT) Yellow [facility] GLUCOSE UA (POCT) Negative Negative mg/dL [facility] Hemoglobin Ql (U) Negative Negative [facility] KETONE UA (POCT) Negative Negative mg/dL [facility] LEUKOCYTES UA (POCT) Negative Negative [facility] NITRITE UA (POCT) Negative Negative [facility] PH UA (POCT) 5.5 4.5 - 8.0 [facility] Protein Ql (U) Negative Negative mg/dL [facility] SPECIFIC GRAVITY UA (POCT) 1.010 1.005 - 1.030 [facility] UROBILINOGEN UA (POCT) 0.2 Ember l E.U./dL [facility] Location:[address], [place], [place], [address] [place] [address] POINT OF CARE [facility] XR LUMBAR 3V AP/LAT/L5-S1on 07-28-2024 XR LUMBAR 3V AP/LAT/L5-S1 * * *Final Report* * * DATE OF EXAM: Jul 28 2024 1:42PM [id number] - XR LUMBAR 3V AP/LAT/L5-S1 / PROCEDURE REASON: Pain * * * * Physician Interpretation * * * * X-ray lumbosacral spine, AP, lateral views Comparison: 09/29/2016 Counting reference: As noted on the prior study there are hypoplastic 12th ribs. There are 4 nonrib-bearing lumbar-type vertebrae which are described as L1 through L4. The S1 segment is transitional with bilateral lumbarization. There is normal architecture and mineralization of the bones. No fracture is visualized. Again noted is fusion of L4 with S1 with anterior and posterior screws and an interbody spacer. Hardware appears intact. Alignment is unchanged. The intravertebral disc spaces appear well preserved. IMPRESSION: Stable examination. No acute findings are identified. Tubing Tester: NAGI Transcribe Date/Time: Jul 28 2024 1:52P Dictated by : BIRD BLOUNT MD This examination was interpreted and the report reviewed and electronically signed by: BIRD BLOUNT MD on Jul 28 2024 1:56PM EST [id number] Normal [facility] XR Lumbar spine 3 Viewson IMPRESSION: Stable examination. No acute findings are identified. Tubing Tester: PSCTracey Transcribe Date/Time: Jul 28 2024 1:52P Dictated by : BIRD BLOUNT MD This examination was interpreted and the report reviewed and electronically signed by: BIRD BLOUNT MD on Jul 28 2024 1:56PM EST DIVISION OF RADIOLOGY * * *Final Report* * * DATE OF EXAM: Jul 28 2024 1:42PM WOX [id number] - XR LUMBAR 3V AP/LAT/L5-S1 / PROCEDURE REASON: Pain * * * * Physician Interpretation * * * * X-ray lumbosacral spine, AP, lateral views Comparison: 09/29/2016 Counting reference: As noted on the prior study there are hypoplastic 12th ribs. There are 4 nonrib-bearing lumbar-type vertebrae which are described as L1 through L4. The S1 segment is transitional with bilateral lumbarization. There is normal architecture and mineralization of the bones. No fracture is visualized. Again noted is fusion of L4 with S1 with anterior and posterior screws and an interbody spacer. Hardware appears intact. Alignment is unchanged. The intravertebral disc spaces appear well preserved. DIVISION OF RADIOLOGY [facility] * * *Final Report* * * DATE OF EXAM: Jul 28 2024 1:42PM WOX [id number] - XR LUMBAR 3V AP/LAT/L5-S1 / PROCEDURE REASON: Pain * * * * Physician Interpretation * * * * X-ray lumbosacral spine, AP, lateral views Comparison: 09/29/2016 Counting reference: As noted on the prior study there are hypoplastic 12th ribs. There are 4 nonrib-bearing lumbar-type vertebrae which are described as L1 through L4. The S1 segment is transitional with bilateral lumbarization. There is normal architecture and mineralization of the bones. No fracture is visualized. Again noted is fusion of L4 with S1 with anterior and posterior screws and an interbody spacer. Hardware appears intact. Alignment is unchanged. The intravertebral disc spaces appear well preserved. IMPRESSION IMPRESSION: Stable examination. No acute findings are identified. Tubing Tester: NAGI Transcribe Date/Time: Jul 28 2024 1:52P Dictated by : BIRD BLOUNT MD This examination was interpreted and the report reviewed and electronically signed by: BIRD BLOUNT MD on Jul 28 2024 1:56PM EST [facility] XR Lumbar spine 3 ViewsOrder ed By: [facility] Provider on 07-28-2024 [facility] XR SACRUM/COCCYX 3V AP/LATon 07-28-2024 XR SACRUM/COCCYX 3V AP/LAT * * *Final Report* * * DATE OF EXAM: Jul 28 2024 1:42PM WOX [id number] - XR SACRUM/COCCYX 3V AP/LAT / PROCEDURE REASON: Pain * * * * Physician Interpretation * * * * EXAMINATION: XR SACRUM/COCCYX 3V AP/LAT CLINICAL HISTORY: Acute bilateral low back pain Pain Technique: XR SACRUM/COCCYX 3V AP/LAT -- NOT APPLICABLE with 3 views on 3 images Comparison: None RESULT: No acute fractures are identified. No osseous destructive abnormalities are visualized. Postsurgical changes are present at the lumbosacral junction status post interbody fusion. The surgical hardware appears intact. IMPRESSION: No acute findings are identified. Tubing Tester[facility] Transcribe Date/Time: Jul 28 2024 1:52P Dictated by : BIRD BLOUNT MD This examination was interpreted and the report reviewed and electronically signed by: BIRD BLOUNT MD on Jul 28 2024 2:03PM EST [id number] Normal [facility] XR Sacrum and Coccyx 3 Views on 07-28-2024 IMPRESSION: No acute findings are identified. Tubing Tester: [facility] Transcribe Date/Time: Jul 28 2024 1:52P Dictated by : BIRD BLOUNT MD This examination was interpreted and the report reviewed and electronically signed by: BIRD BLOUNT MD on Jul 28 2024 2:03PM EST DIVISION OF RADIOLOGY * * *Final Report* * * DATE OF EXAM: Jul 28 2024 1:42PM [id number] - XR SACRUM/COCCYX 3V AP/LAT / PROCEDURE REASON: Pain * * * * Physician Interpretation * * * * EXAMINATION: XR SACRUM/COCCYX 3V AP/LAT CLINICAL HISTORY: Acute bilateral low back pain Pain Technique: XR SACRUM/COCCYX 3V AP/LAT -- NOT APPLICABLE with 3 views on 3 images Comparison: None RESULT: No acute fractures are identified. No osseous destructive abnormalities are visualized. Postsurgical changes are present at the lumbosacral junction status post interbody fusion. The surgical hardware appears intact. DIVISION [facility] RADIOLOGY [facility] * * *Final Report* * * DATE OF EXAM: Jul 28 2024 1:42PM WOX [id number] - XR SACRUM/COCCYX 3V AP/LAT / PROCEDURE REASON: Pain * * * * Physician Interpretation * * * * EXAMINATION: XR SACRUM/COCCYX 3V AP/LAT CLINICAL HISTORY: Acute bilateral low back pain Pain Technique: XR SACRUM/COCCYX 3V AP/LAT -- NOT APPLICABLE with 3 views on 3 images Comparison: None RESULT: No acute fractures are identified. No osseous destructive abnormalities are visualized. Postsurgical changes are present at the lumbosacral junction status post interbody fusion. The surgical hardware appears intact. IMPRESSION IMPRESSION: No acute findings are identified. Tubing Tester: [facility] Transcribe Date/Time: Jul 28 2024 1:52P Dictated by : BIRD BLOUNT MD This examination was interpreted and the report reviewed and electronically signed by: BIRD BLOUNT MD on Jul 28 2024 2:03PM [facility] Walter 07-14-2024 BOONEN Telephone (HEATHER) ANASTASIA SIMPSON ([id number]) 1975 F Date Time Provider Department 07/14/24 ROBYN HARRIS During your visit today, we recorded the following information about you: Conchis Serrano LPN 07/14/2024 10:05 AM Signed Patient calling when the pharmacy runs the first month of the Emgality it is not covered since it is 2 syringes, 240 mg. But the monthly 120 mg is covered. Patient asking if a prior authorization needs to done separately for the first month dosing? Christelle Warner OCCA 07/14/2024 10:37 AM Signed In review of chart there are two orders written for Emgality. First order on 07/12 is for patient to take 2 mL (240 mg) every month. Separate order on 07/12 is for patient to take 1 mL (120 mg) every month. OV notes that first dose of 2 mL is a loading dose. Please review and advise. Thank you. ALFONSO Murphy Jessica, LPN 07/15/2024 9:25 AM Signed PA started via CoverMyMeds, Patel- [id number]. Please await decision. YAMILETH Arellano Gillian, OCCA 07/18/2024 11:00 AM Signed PA approved through 08/28/2024. ALFONSO Murphy Allergies As of Date: 07/14/2024 Noted Allergy Reaction CELESTONE (BETAMETHASONE SODIUM P*12/19/2010 14 - Other: See Comments Comments: Cheeks and neck red and hot- felt like she had a fever in top 1/2 of body, other steroids have been ok CODEINE 07/01/2004 Comments: GI UPSET, HEART RACES NEURONTIN (GABAPENTIN) 02/09/2014 14 - Other: See Comments Comments: Extreme dizziness SULFA (SULFONAMIDE ANTIBIOTICS) 07/01/2004 Comments: UNKNOWN Date Reviewed: 07/12/2024 Reviewed by: Robyn Harris PA-C - Fully Assessed Reason for Visit: Medication Problem [65] Prescriptions as of 07/18/2024 - galcanezumab-gnln 120 mg/mL subcutaneous syringe (EMGALITY) Inject 2 mL subcutaneously once every month. Do not shake. - galcanezumab-gnln 120 mg/mL subcutaneous syringe (EMGALITY) Inject 1 mL subcutaneously once every month. Do not shake. - SUMAtriptan (IMITREX) 100 mg tablet Take 1 tablet (100 mg) by mouth as needed. - HYDROcodone-acetamino phen (NORCO) 5-325 mg per tablet Take 1 tablet by mouth every 6 hours as needed for up to 31 days. - omeprazole (PRILOSEC) 20 mg capsule Take 1 capsule by mouth daily before breakfast. 1/2 hr before meal. - valACYclovir (VALTREX) 1 gram tablet Take 1 tablet by mouth two times a day. - propranolol ER (INDERAL LA) 60 mg 24 hr capsule Take 1 capsule by mouth once daily. - ondansetron orally disintegrating (ZOFRAN ODT) 4 mg disintegrating tablet Take 1 tablet by mouth every 6 hours as needed for nausea/vomiting. - escitalopram oxalate (LEXAPRO) 5 mg tablet Take 1 tablet by mouth once daily. Take 1 tab a day for one week and then increase to 2 tabs a day - SENNOSIDES 8.6 MG TAB as needed for constipation Problem List As Of Date 07/14/2024 Noted Resolved Headache [R51] 10/05/2007 11/07/2009 Postlaminectomy syndrome [M96.1] 11/26/2009 Chronic low back pain [M54.50, G89.29] 10/01/2010 04/09/2015 Visit for wound check [Z51.89] 04/09/2012 06/25/2012 Basal cell carcinoma [C44.91] 11/29/2012 Dysmenorrhea [N94.6] 11/22/2014 Menorrhagia [N92.0] 11/22/2014 Migraine [G43.909] 07/17/2017 Chronic insomnia [F51.04] 11/13/2020 Moderate major depression, single episode (HCC)*11/13/2020 05/19/2022 Anxiety [F41.9] 11/13/2022 History of colonic polyps [Z86.0100] 06/01/2023 Neck pain [M54.2] 08/24/2023 Radicular pain in left arm [M79.2] 08/24/2023 Acute left-sided thoracic back pain [M54.6] 08/24/2023 Encounter Status:Closed by CHRISTELLE WARNER on 07/18/24 [facility] Walter 07-13-2024 [facility] Telephone ([employer]) ANASTASIA SIMPSON ([id number]) 1975 F Date Time Provider Department 07/13/24 ROBYN HARRIS During your visit today, we recorded the following information about you: Yoko Chatterjee LPN 07/13/2024 1:55 PM Signed PA started via Cover My Meds for Emgality. Medication has been approved. Yoko Chatterjee LPN Allergies As of Date: 07/13/2024 Noted Allergy Reaction CELESTONE (BETAMETHASONE SODIUM P*12/19/2010 14 - Other: See Comments Comments: Cheeks and neck red and hot- felt like she had a fever in top 1/2 of body, other steroids have been ok CODEINE 07/01/2004 Comments: GI UPSET, HEART RACES NEURONTIN (GABAPENTIN) 02/09/2014 14 - Other: See Comments Comments: Extreme dizziness SULFA (SULFONAMIDE ANTIBIOTICS) 07/01/2004 Comments: UNKNOWN Date Reviewed: 07/12/2024 Reviewed by: Robyn Harris PA-C - Fully Assessed Reason for Visit: Insurance Authorization [[id number]] Prescriptions as of 07/13/2024 - galcanezumab-gnln 120 mg/mL subcutaneous syringe (EMGALITY) Inject 2 mL subcutaneously once every month. Do not shake. - galcanezumab-gnln 120 mg/mL subcutaneous syringe (EMGALITY) Inject 1 mL subcutaneously once every month. Do not shake. - SUMAtriptan (IMITREX) 100 mg tablet Take 1 tablet (100 mg) by mouth as needed. - HYDROcodone-acetamino phen (NORCO) 5-325 mg per tablet Take 1 tablet by mouth every 6 hours as needed for up to 31 days. - omeprazole (PRILOSEC) 20 mg capsule Take 1 capsule by mouth daily before breakfast. 1/2 hr before meal. - valACYclovir (VALTREX) 1 gram tablet Take 1 tablet by mouth two times a day. - propranolol ER (INDERAL LA) 60 mg 24 hr capsule Take 1 capsule by mouth once daily. - ondansetron orally disintegrating (ZOFRAN ODT) 4 mg disintegrating tablet Take 1 tablet by mouth every 6 hours as needed for nausea/vomiting. - escitalopram oxalate (LEXAPRO) 5 mg tablet Take 1 tablet by mouth once daily. Take 1 tab a day for one week and then increase to 2 tabs a day - SENNOSIDES 8.6 MG TAB as needed for constipation Problem List As Of Date 07/13/2024 Noted Resolved Headache [R51] 10/05/2007 11/07/2009 Postlaminectomy syndrome [M96.1] 11/26/2009 Chronic low back pain [M54.50, G89.29] 10/01/2010 04/09/2015 Visit for wound check [Z51.89] 04/09/2012 06/25/2012 Basal cell carcinoma [C44.91] 11/29/2012 Dysmenorrhea [N94.6] 11/22/2014 Menorrhagia [N92.0] 11/22/2014 Migraine [G43.909] 07/17/2017 Chronic insomnia [F51.04] 11/13/2020 Moderate major depression, single episode (HCC)*11/13/2020 05/19/2022 Anxiety [F41.9] 11/13/2022 History of colonic polyps [Z86.0100] 06/01/2023 Neck pain [M54.2] 08/24/2023 Radicular pain in left arm [M79.2] 08/24/2023 Acute left-sided thoracic back pain [M54.6] 08/24/2023 Encounter Status:Closed by YOKO CHATTERJEE on 07/13/24 [facility] Kings 07-12-2024 CNOV Office Visit (NEMMATEO ) ANASTASIA SIMPSON ([id number]) 1975 F Date Time Provider Department 07/12/24 7:00 AM ROBYN HARRIS During your visit today, we recorded the following information about you: Pulse Respiration Blood pressure Weight 77/minute 16/minute 120/82 65 kg Yoko Chatterjee LPN 07/12/2024 7:18 AM Signed 07/10/2024 Sleep Apnea Probability Snores loudly: No Tired, fatigued or sleepy in daytime: Yes Stops breathing or choking/gasping during sleep: No High blood pressure: Yes Sleep Apnea Probability Score: 13 (Sleep study not recommended) Robyn Harris PA-C 07/12/2024 8:05 AM Signed [facility] Out[facility] Date: July 12, 2024 Patient Name: Anastasia Simpson Referring physician: Jacek Abbasi [facility] [id number] Consult requested for headaches by Dr. Scruggs. Recommendations will be communicated via shared medical record or US mail. Primary physician: [place] [address] Reason for Evaluation: Headaches Subjective HPI Anastasia Simpson is a 48 year old right-handed female who presents for evaluation of headaches. Dr. Scruggs is the referring physician. Dr. Jacek Scruggs MD is the PCP. Chart review: Seen by PCP on 05/02/24 for headache. BARNES:has been worse recently. Having worsening headaches. Imitrex does help. On lexapro, propranolol, imitrex, norco, zofran. Saw neurology in 2007 for headaches, MRI brain normal at that itme. Patient presents for evaluation of headache. Patient with chronic headache for the last 15+ years, did previously see neurology in 2007. Had normal MRI of the brain at that time. Notes that since that time her headaches have gradually worsened, over the last year or so headaches are occurring longer. Notes that before her headaches usually occur around her menstrual cycle, for 2 to 3 days, now 1 headache is lasting 10 to 12 days. Takes Imitrex during this which is effective but the headache comes back 24 hours later. No new symptoms with the headaches, just lasting longer. Which she usually gets about 2 attacks a month lasting 10 days each, for total about 20 headache days a month. Headaches are migrainous, no autonomic features, no onset with Valsalva, position change or exertion. Did see her eye doctor last year with normal dilated exam. Drinks water throughout the day, no diet changes or lifestyle changes. Does not that she recently changed jobs but notes this was for the better, improving her stress. Does have chronic insomnia, sleeping a few hours a night, this has been the case for many years. Headaches are typically to the top of the head and radiate down the back of the neck. Has gotten an aura about a dozen times in her life, but not consistently. Current Headache treatment Preventative: propranolol Abortive: imitrex Medications effective? sometimes # of doses of abortive medications per month: 10 Previous Medications: Lexapro, propranolol, imitrex, norco, zofran Elavil TPM Gabapentin Headache Description Onset: 15 years Total headache days per month: 20 per month Total headache attacks per month: 2 per month Headache free days: Yes Duration of attacks: 10-12 days Severity of headaches? severe Onset to Peak: gradual Location: top of the head and radiate down. Aura: loses central vision (only a dozen total) Prodrome:none. Accompanying symptoms: phonophobia, nausea, vomiting, vertigo, neck pain. Quality:throbbing and piercing/stabbing. Worse with activity: Yes Triggers: menses. Cough/sneeze/valsalva as trigger: no Positional changes: sometimes getting up too quickly Most common time of day for headache to begin:anytime. Time missed from work or school: have in the past Risk Factors Visual-Motion sensitivity: Yes Tobacco Use: No Alcohol Use: No Other substances: No Caffeine: Yes, occasionally sweet tea, once daily coffee Water- all day Neck Pain /Back Pain: Yes, lumber (three lumbar surgeries) Fibromyalgia: No History of Motor Vehicle Accident: No History of Traumatic Brain Injury and/or Concussion: Yes, two years ago getting to car and tripped and fell, no loc History of severe infection: yes, bacterial and in the hospital for four days (20 years ago) History of Syncope: No Obesity: No, Body mass index is 23 Eye doc- one year ago Preg- no Family History Migraine or other headaches in the family: No Aneurysms in a first degree relative: No Brain tumors in the family: No Other neurological illness in the family: aunt with parkinsons variant, ALS ROS Review of Systems CONSTITUTIONAL: No reported fevers, chills, night sweats, or significant unintentional weight loss. EYES: No visual changes indicated. No eye pain or orbital swelling reporte (more content not included)... [facility] ANASTASIA SIMPSON ([id number]) 1975 F Date Time Provider Department 07/12/24 JACEK SCRUGGS [facility] During your visit today, we recorded the following information about you: Kimmy Willis LPN 07/12/2024 8:44 AM Signed Calling for xray results from 07/04/24, record says it is still in process. Spoke to someone in radiology AND she is going to check into this, she states they are still behind getting xrays read. Kimmy Willis LPN Allergies As of Date: 07/12/2024 Noted Allergy Reaction CELESTONE (BETAMETHASONE SODIUM P*12/19/2010 14 - Other: See Comments Comments: Cheeks and neck red and hot- felt like she had a fever in top 1/2 of body, other steroids have been ok CODEINE 07/01/2004 Comments: GI UPSET, HEART RACES NEURONTIN (GABAPENTIN) 02/09/2014 14 - Other: See Comments Comments: Extreme dizziness SULFA (SULFONAMIDE ANTIBIOTICS) 07/01/2004 Comments: UNKNOWN Date Reviewed: 07/12/2024 Reviewed by: Robyn Harris PA-C - Fully Assessed Reason for Visit: Results [95] Cmt: XRay Prescriptions as of 07/12/2024 - galcanezumab-gnln 120 mg/mL subcutaneous syringe (EMGALITY) Inject 2 mL subcutaneously once every month. Do not shake. - galcanezumab-gnln 120 mg/mL subcutaneous syringe (EMGALITY) Inject 1 mL subcutaneously once every month. Do not shake. - SUMAtriptan (IMITREX) 100 mg tablet Take 1 tablet (100 mg) by mouth as needed. - HYDROcodone-acetamino phen (NORCO) 5-325 mg per tablet Take 1 tablet by mouth every 6 hours as needed for up to 31 days. - omeprazole (PRILOSEC) 20 mg capsule Take 1 capsule by mouth daily before breakfast. 1/2 hr before meal. - valACYclovir (VALTREX) 1 gram tablet Take 1 tablet by mouth two times a day. - propranolol ER (INDERAL LA) 60 mg 24 hr capsule Take 1 capsule by mouth once daily. - ondansetron orally disintegrating (ZOFRAN ODT) 4 mg disintegrating tablet Take 1 tablet by mouth every 6 hours as needed for nausea/vomiting. - escitalopram oxalate (LEXAPRO) 5 mg tablet Take 1 tablet by mouth once daily. Take 1 tab a day for one week and then increase to 2 tabs a day - SENNOSIDES 8.6 MG TAB as needed for constipation Problem List As Of Date 07/12/2024 Noted Resolved Headache [R51] 10/05/2007 11/07/2009 Postlaminectomy syndrome [M96.1] 11/26/2009 Chronic low back pain [M54.50, G89.29] 10/01/2010 04/09/2015 Visit for wound check [Z51.89] 04/09/2012 06/25/2012 Basal cell carcinoma [C44.91] 11/29/2012 Dysmenorrhea [N94.6] 11/22/2014 Menorrhagia [N92.0] 11/22/2014 Migraine [G43.909] 07/17/2017 Chronic insomnia [F51.04] 11/13/2020 Moderate major depression, single episode (HCC)*11/13/2020 05/19/2022 Anxiety [F41.9] 11/13/2022 History of colonic polyps [Z86.0100] 06/01/2023 Neck pain [M54.2] 08/24/2023 Radicular pain in left arm [M79.2] 08/24/2023 Acute left-sided thoracic back pain [M54.6] 08/24/2023 Encounter Status:[facility]PER [facility]FAMPWS[facility] ANASTASIA SIMPSON ([id number]) 1975 F Date Time Provider Department 07/06/24 JACEK SCRUGGS [facility] During your visit today, we recorded the following information about you: Angelique Marlow 07/06/2024 3:21 PM Signed Anastasia is calling regarding the Rx Hydrocodone. She is asking if there is any way of filling this sooner than Thursday as she recently fell, and needed a couple more, more than usual. Please call and advise either way. TY [phone] Cori Hanson MA 07/06/2024 4:02 PM Signed Called [facility] they advised rx picked up 06/[address] rx is written for 31 days which they can not fill for 31 days due to provider instructions. Pharmacist said if patient was taking every 6 hours than it be a 15 day supply and could fill early off instructions but due to stating 31 can not unless provider ok to over ride. ANUSHA Herrera William J, MD 07/07/2024 8:36 AM Signed Ok to fill early Amee Paz MA 07/07/2024 11:58 AM Signed Pharmacy notified ok for early refill. 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 - HYDROcodone-acetamino phen (NORCO) 5-325 mg per tablet Take 1 tablet by mouth every 6 hours as needed for up to 31 days. - omeprazole (PRILOSEC) 20 mg capsule Take 1 capsule by mouth daily before breakfast. 1/2 hr before meal. - valACYclovir (VALTREX) 1 gram tablet Take 1 tablet by mouth two times a day. - propranolol ER (INDERAL LA) 60 mg 24 hr capsule Take 1 capsule by mouth once daily. - ondansetron orally disintegrating (ZOFRAN ODT) 4 mg disintegrating tablet Take 1 tablet by mouth every 6 hours as needed for nausea/vomiting. - escitalopram oxalate (LEXAPRO) 5 mg tablet Take 1 tablet by mouth once daily. Take 1 tab a day for one week and then increase to 2 tabs a day - SENNOSIDES 8.6 MG TAB as needed for constipation Problem List As Of Date 07/06/2024 Noted Resolved Headache [R51] 10/05/2007 11/07/2009 Postlaminectomy syndrome [M96.1] 11/26/2009 Chronic low back pain [M54.50, G89.29] 10/01/2010 04/09/2015 Visit for wound check [Z51.89] 04/09/2012 06/25/2012 Basal cell carcinoma [C44.91] 11/29/2012 Dysmenorrhea [N94.6] 11/22/2014 Menorrhagia [N92.0] 11/22/2014 Migraine [G43.909] 07/17/2017 Chronic insomnia [F51.04] 11/13/2020 Moderate major depression, single episode (HCC)*11/13/2020 05/19/2022 Anxiety [F41.9] 11/13/2022 History of colonic polyps [Z86.0100] 06/01/2023 Neck pain [M54.2] 08/24/2023 Radicular pain in left arm [M79.2] 08/24/2023 Acute left-sided thoracic back pain [M54.6] 08/24/2023 Encounter Status:Closed by AMEE PAZ on 07/07/24 [facility] CNOVon 07-04-2024 CNOV Office Visit (FAMPWS ) ANASTASIA SIMPSON ([id number]) 1975 F Date Time Provider Department 07/04/24 3:40 PM JACEK SCRUGGS [facility] During your visit today, we recorded the following information about you: Pulse Blood pressure Weight Height 83/minute 116/78 64.2 kg 1.676 m Jacek Scruggs MD 07/04/2024 3:49 PM Signed Patient presents with: Follow Up HPI: Patient presents today for office visit for follow up. Mentions 3 weeks ago she fell outside in [facility]'s parking lot. Landed on buttocks and more weight on her right side. Had some pain and swelling in her left knee. Doing much better but still with some tenderness. Did have a bruise near the area. Bearing weight currently. Had tibial plateau fracture in 2022 Headaches are about the same. Sumatriptan prn. Med is helping but states having to take it 10-12 days in a row. Was setup to see Neuro but had to cancel. Wants to reschedule. Pain is controlled. Medications help with functioning. No misuse or abuse. Controlled substance agreement. Benefiting from use. Tox screen done. Has seen specialists who concur with use of meds. On lowest effective dose. GERD: Continues on Omeprazole 2 mg daily. Symptoms controlled. Denies bloody or black stool. HTN: Does not monitor BP at home. Denies chest pain and shortness of breath Continues on Propranolol 6 mg daily. Also helps with her headaches. Denies dizziness. Denies palpitations and syncope. Denies edema. Has a new job. Lexapro is helping. MEDICATIONS: Current Outpatient Medications Medication Sig HYDROcodone-acetamino phen (NORCO) 5-325 mg per tablet Take 1 tablet by mouth every 6 hours as needed for up to 31 days. omeprazole (PRILOSEC) 20 mg capsule Take 1 capsule by mouth daily before breakfast. 1/2 hr before meal. valACYclovir (VALTREX) 1 gram tablet Take 1 tablet by mouth two times a day. propranolol ER (INDERAL LA) 60 mg 24 hr capsule Take 1 capsule by mouth once daily. SUMAtriptan (IMITREX) 100 mg tablet Take 1 tablet (100 mg) by mouth as needed. ondansetron orally disintegrating (ZOFRAN ODT) 4 mg disintegrating tablet Take 1 tablet by mouth every 6 hours as needed for nausea/vomiting. escitalopram oxalate (LEXAPRO) 5 mg tablet Take 1 tablet by mouth once daily. Take 1 tab a day for one week and then increase to 2 tabs a day SENNOSIDES 8.6 MG TAB as needed for constipation No current facility-administered medications for this visit. ALLERGIES: ALLERGIES Allergen Reactions Celestone [Betameth* Other: See Comments Cheeks and neck red and hot- felt like she had a fever in top 1/2 of body, other steroids have been ok Codeine GI UPSET, HEART RACES Neurontin [Gabapent* Other: See Comments Extreme dizziness Sulfa (Sulfonamide * UNKNOWN PAST MEDICAL HISTORY Diagnosis Date Basal cell carcinoma 2011, 2016 multiple sites High blood pressure Moderate major depression, single episode (HCC) 11/13/2020 PMH - PAST MEDICAL HISTORY OF irritable bowel syndrome PMH - PAST MEDICAL HISTORY OF back pain PMH - PAST MEDICAL HISTORY OF Injections L4-L5 by Dr Knox in [place] PAST SURGICAL HISTORY Procedure Laterality Date COLONOSCOPY FLX DX W/COLLJ SPEC WHEN PFRMD 02/28/2020 Colonoscopy-Dr Bryant ESOPHAGOGASTRODUODENO SCOPY TRANSORAL DIAGNOSTIC 02/28/2020 EGD-Dr Bryant LAPAROSCOPIC CHOLECYSTECTOMY 08/26/2018 Dr. Bryant MOHJanessa TRUNK/ARM/LEG 1ST STAGE 5 BLOCKS multiple BCC PAST SURGICAL HISTORY OF 02/2003 x2 discectomy L4-5 S1 PAST SURGICAL HISTORY OF DANDC PAST SURGICAL HISTORY OF 07/11/2004 L5-S1 anterior lumbar interbody fusion with posterior L5-S1 translaminar facet screw on left side and a facet joint screw on the right side, and this would be a 360-degree fusion PAST SURGICAL HISTORY OF 1999 lasix eye surgery PAST SURGICAL HISTORY OF 2003 wisdom teeth S THERMACHOICE UTERINE BALLOON 01/02/15 Hysteroscopy w/ endometrial ablation FAMILY HISTORY Problem Relation Age of Onset Lipids Mother Headache Mother Ischemic Heart Disease Maternal Grandmother Skin Cancer Maternal Grandmother 60 Ischemic Heart Disease Maternal Grandfather other (Melanoma [Other]) Maternal Grandfather 81 Hypertension Paternal Grandmother all grandparents Breast Cancer Paternal Grandmother 66 Breast Cancer Paternal Aunt 45 bilateral Colon Cancer Paternal Aunt 55 other (Kidney Cancer [Other]) Paternal Aunt 55 Breast Cancer Paternal Aunt 40s Breast Cancer Maternal Aunt 50s Social History Tobacco Use Smoking status: Never Smokeless tobacco: Never Vaping Use Vaping status: Never Used Substance Use Topics Alcohol use: No Drug use: No Reviewed current medications, allergies, past medical history, surgical history, family history and social history today. REVIEW OF SYSTEMS All other reviewed and negative other henry (more content not included)... Normal [facility] XR TIBIA FIBULA 2V AP/LAT RT on 07-04-2024 XR TIBIA FIBULA 2V AP/LAT RT * * *Final Report* * * * * * SEE BOTTOM OF REPORT FOR ADDENDED TEXT * * * DATE OF EXAM: Jul 04 2024 4:05PM WOX [id number] - XR TIBIA FIBULA 2V AP/LAT RT / PROCEDURE REASON: Pain of right lower extremity * * * * Physician Interpretation * * * * * * * * * * * * ORIGINAL REPORT * * * * * * * * Examination: XR TIBIA FIBULA 2V AP/LAT RT History: Pain of right lower extremity Attention proximal tibia Technique: XR TIBIA FIBULA 2V AP/LAT RT Comparison: None RESULT: AP and lateral views of the right tibia and fibula show no fracture or focal bony abnormality. Normal mineralization and alignment. Partially visualized knee and ankle appear unremarkable Soft tissues are unremarkable IMPRESSION: NO EVIDENCE OF ACUTE FRACTURE Please note that the distal tibia and fibula are not included on the AP view. The proximal tibia and fibula are not included on the lateral view * * * * * * * * ADDENDUM #1 * * * * * * * * Additional images have been submitted. These include the entire tibia and fibula in the AP and lateral projections. No fracture or focal bony abnormality is seen. The knee and ankle appear intact. Tubing Tester: PSCB Transcribe Date/Time: Jul 12 2024 9:11A Dictated by : ELLEN HIRSCH MD This examination was interpreted and the report reviewed and electronically signed by: ELLEN HIRSCH MD on Jul 12 2024 8:59AM EST This document has been addended by: ELLEN HIRSCH MD on Jul 12 2024 9:12AM EST [id number] N Normal [facility] CBC W Auto Differential pane l (Bld)on 05-26-2024 Basophils (Bld) [#/Vol] 0.07 10*3/uL Normal <0.11 [facility] Comment on above: Order Comment: Speci men Type: BLOOD SPECIMENOrdering Facility: [facility] Address: [address] [place] [address] Performed By: #### 5 7021-8 ####[facility] LABCLIA [id number] [place] [address] [place] Basophils/100 WBC (Bld) 1.5 % Normal C [facility] Comment on above: Order Comment: Speci men Type: BLOOD SPECIMENOrdering Facility: [facility] Address: [address] [place] [address] Performed By: #### 5 7021-8 ####[facility] LABCLIA [id number] [place] [address] [place] Differential cell count method Nom (Bld) Auto Normal [facility] Comment on above: Order Comment: Speci men Type: BLOOD SPECIMENOrdering Facility: [facility] Address: [address] [place] [address] Performed By: #### 5 7021-8 ####[facility] LABCLIA [id number] [place] [address] [place] Eosinophils (Bld) [#/Vol] 0.04 10*3/uL Normal <0.46 [facility] Comment on above: Order Comment: Speci men Type: BLOOD SPECIMENOrdering Facility: [facility] Address: [address] [place] [address] Performed By: #### 5 7021-8 ####[facility] LABCLIA [id number] [place] [id number] [place] Eosinophils/100 WBC (Bld) 0.9 % Normal [facility] Comment on above: Order Comment: Speci men Type: BLOOD SPECIMENOrdering Facility: [facility] Address: [address] [place] [address] Performed By: #### 5 7021-8 ####[facility] LABIA [id number] [place] [address] [place] Erythrocyte distribution width (RBC) [Ratio] 13.0 % Normal 11.5-15.0 [facility] Comment on above: Order Comment: Speci men Type: BLOOD SPECIMENOrdering Facility: [facility] Address: [address] [place] [address] Performed By: #### 5 7021-8 ####[facility] LABCLIA [id number] [place] [address] [place] Hematocrit (Bld) [Volume fraction] 43.5 % Normal 36.0-46.0 [facility] Comment on above: Order Comment: Speci men Type: BLOOD SPECIMENOrdering Facility: [facility] Address: [address] [place] [address] Performed By: #### 5 7021-8 ####[facility] LABCLIA [id number] [place] [id number] [place] Hemoglobin (Bld) [Mass/Vol] 13.2 g/dL Normal 11.5-15.5 [facility] Comment on above: Order Comment: Speci men Type: BLOOD SPECIMENOrdering Facility: [facility] Address: [address] [place] [address] Performed By: #### 5 7021-8 ####[facility] LABCLIA [id number] [place] [address] [place] Immature granulocytes (Bld) [#/Vol] 0.03 10*3/uL Normal <0.10 [facility] Comment on above: Order Comment: Speci men Type: BLOOD SPECIMENOrdering Facility: [facility] Address: [address] [place] [address] Performed By: #### 5 7021-8 ####[facility] LABCLIA [id number] [place] [address] [place] Immature granulocytes/100 WBC (Bld) 0.6 % Normal [facility] Comment on above: Order Comment: Speci men Type: BLOOD SPECIMENOrdering Facility: [facility] Address: [address] [place] [address] Performed By: #### 5 7021-8 ####[facility] LABCLIA [id number] [place] [address] [place] Lymphocytes (Bld) [#/Vol] 1.69 10*3/uL Normal 1.00-4.00 [facility] Comment on above: Order Comment: Speci men Type: BLOOD SPECIMENOrdering Facility: [facility] Address: [address] [place] [address] Performed By: #### 5 7021-8 ####[facility] LABCLIA [id number] [place] [address] [place] Lymphocytes/100 WBC (Bld) 36.1 % Normal [facility] Comment on above: Order Comment: Speci men Type: BLOOD SPECIMENOrdering Facility: [facility] Address: [address] [place] [address] Performed By: #### 5 7021-8 ####[facility] LABCLIA [id number] [place] [address] [place] MCH (RBC) [Entitic mass] 28.4 pg Normal 26.0-34.0 [facility] Comment on above: Order Comment: Speci men Type: BLOOD SPECIMENOrdering Facility: [facility] Address: [address] [place] [address] Performed By: #### 5 7021-8 ####[facility] LABCLIA [id number] [place] [address] [place] MCHC (RBC) [Mass/Vol] 30.3 g/dL Low 30.5-36.[address] [facility] Comment on above: Order Comment: Speci men Type: BLOOD SPECIMENOrdering Facility: [facility] Address: [address] [place] [address] Performed By: #### 5 7021-8 ####[facility] LABIA [id number] [place] [address] [place] MCV (RBC) [Entitic vol] 93.8 fL Normal 80.0-100.0 C [facility] Comment on above: Order Comment: Speci men Type: BLOOD SPECIMENOrdering Facility: [facility] Address: [address] [place] [address] Performed By: #### 5 7021-8 ####[facility] LABIA [id number] [place] [address] [place] Monocytes (Bld) [#/Vol] 0.52 10*3/uL Normal <0.87 [facility] Comment on above: Order Comment: Speci men Type: BLOOD SPECIMENOrdering Facility: [facility] Address: [address] [place] [address] Performed By: #### 5 7021-8 ####[facility] LABCLIA [id number] [place] [address] [place] Monocytes/100 WBC (Bld) 11.1 % Normal C [facility] Comment on above: Order Comment: Speci men Type: BLOOD SPECIMENOrdering Facility: [facility] Address: [address] [place] [address] Performed By: #### 5 7021-8 ####[facility] LABCLIA [id number] [place] [address] [place] Neutrophils (Bld) [#/Vol] 2.33 10*3/uL Normal 1.45-7.50 [facility] Comment on above: Order Comment: Speci men Type: BLOOD SPECIMENOrdering Facility: [facility] Address: [address] [place] [address] Performed By: #### 5 7021-8 ####[facility] LABCLIA [id number] [place] [address] [place] Neutrophils/100 WBC (Bld) 49.8 % Normal [facility] Comment on above: Order Comment: Speci men Type: BLOOD SPECIMENOrdering Facility: [facility] Address: [address] [place] [address] Performed By: #### 5 7021-8 ####[facility] LABCLIA [id number] [place] [address] [place] Nucleated RBC (Bld) [#/Vol] 10*3/uL Normal <0.01 [facility] Comment on above: Order Comment: Speci men Type: BLOOD SPECIMENOrdering Facility: [facility] Address: [address] [place] [address] Performed By: #### 5 7021-8 ####[facility] LABCLIA [id number] [place] [address] [place] Nucleated RBC/100 WBC (Bld) [Ratio] 0.0 /100 WBC Normal [facility] Comment on above: Order Comment: Speci men Type: BLOOD SPECIMENOrdering Facility: [facility] Address: [address] [place] [address] Performed By: #### 5 7021-8 ####[facility] LABCLIA [id number] [place] [address] [place] Platelet mean volume (Bld) [Entitic vol] 10.9 fL Normal 9.0-12.7 [facility] Comment on above: Order Comment: Speci men Type: BLOOD SPECIMENOrdering Facility: [facility] Address: [address] [place] [address] Performed By: #### 5 7021-8 ####[facility] LABCLIA [id number] [place] [address] [place] Platelets (Bld) [#/Vol] 235 10*3/uL Normal 150-400 [facility] Comment on above: Order Comment: Speci men Type: BLOOD SPECIMENOrdering Facility: [facility] Address: [address] [place] [address] Performed By: #### 5 7021-8 ####[facility] LABCLIA [id number] [place] [address] [place] RBC (Bld) [#/Vol] 4.64 10*6/uL Normal 3.90-5.20 [facility] Comment on above: Order Comment: Speci men Type: BLOOD SPECIMENOrdering Facility: [facility] Address: [address] [place] [address] Performed By: #### 5 7021-8 ####[facility] LABIA [id number] [place] [address] [place] WBC (Bld) [#/Vol] 4.68 10*3/uL Normal 3.70-11.00 [facility] Comment on above: Order Comment: Speci men Type: BLOOD SPECIMENOrdering Facility: [facility] Address: [address] [place] [address] Performed By: #### 5 7021-8 ####[facility] LABIA [id number] [place] [address] [place] Lipid 1996 panelon 4 Cholesterol [Mass/Vol] 209 mg/dL High <200 [facility] Comment on above: Order Comment: Speci men Type: BLOOD SPECIMENOrdering Facility: [facility] Address: [facility] [place] [address] Result Comment: <200 mg/dL, Desirable 200-239 mg/dL, Borderline high >239 mg/dL, High Performed By: #### 3 016-3, 00389-7 ####[facility] LABCLIA [id number] [place] [address] [place] Cholesterol in HDL [Mass/Vol] 62 mg/dL Normal >39 [facility] Comment on above: Order Comment: Gabi men Type: BLOOD SPECIMENOrdering Facility: [facility] Address: [address] [place] [address] Result Comment: 40-5 9 mg/dL, Acceptable >59 mg/dL, High: Negative risk factor for coronary heart disease <40 mg/dL, Low: Positive risk factor for coronary heart disease Performed By: #### 3 016-3, 09827-0 ####[facility] LABCLIA [id number] [place] [address] [place] Cholesterol in LDL [Mass/Vol] 129 mg/dL High <100 [facility] Comment on above: Order Comment: Gabi madden Type: BLOOD SPECIMENOrdering Facility: [facility] Address: [address] [place] [address] Result Comment: <100 mg/dL, Optimal 100-129 mg/dL, Near optimal/above optimal 130-159 mg/dL, Borderline high 160-189 mg/dL, High >189 mg/dL, Very high Secondary prevention optimal LDL Cholesterol levels are recommended to be < 70 mg/dL Performed By: #### 3 016-3, 69001-7 ####[facility] LABCLIA [id number] [place] [address] [place] Cholesterol in LDL/Cholesterol in HDL [Mass ratio] 2.08 {ratio} Normal <2.54 [facility] Comment on above: Order Comment: Airami men Type: BLOOD SPECIMENOrdering Facility: [facility] Address: [address] [place] [address] Result Comment: Aime romero: 1. National Cholesterol Education Program ATP III Guideline At-A-Glance Quick Desk Reference: National Heart, Lung, and Blood [place]. National Institutes of Health. 2001: NIH Publication No. 01-3305. 2. An International Atherosclerosis Society position paper: global recommendations for the management of dyslipidemia: executive summary, Atherosclerosis. 2014: 232(2):410-413. Performed By: #### 3 016-3, 63271-9 ####[facility] LABCLIA [id number] [place] [address] [place] Cholesterol in VLDL [Mass/Vol] 18 mg/dL Normal <30 [facility] Comment on above: Order Comment: Airami men Type: BLOOD SPECIMENOrdering Facility: [facility] Address: [address] [place] [address] Performed By: #### 3 016-3, 71410-1 ####[facility] LABCLIA [id number] [place] [address] [place] Cholesterol non HDL [Mass/Vol] 147 mg/dL High <130 [facility] Comment on above: Order Comment: Gabi madedn Type: BLOOD SPECIMENOrdering Facility: [facility] Address: [address] [place] [address] Result Comment: <130 mg/dL, Optimal 130-159 mg/dL, Near optimal/above optimal 160-189 mg/dL, Borderline high 190-219 mg/dL, High >219 mg/dL, Very high Secondary prevention optimal non HDL Cholesterol levels are recommended to be <100 mg/dL Performed By: #### 3 016-3, 61254-4 ####[facility] LABCLIA [id number] [place] [address] [place] Cholesterol.total/Choles terol in HDL [Mass ratio] 3.37 {ratio} Normal <5.10 [facility] Comment on above: Order Comment: Gabi madden Type: BLOOD SPECIMENOrdering Facility: [facility] Address: [address] [place] [address] Performed By: #### 3 016-3, 18380-9 ####[facility] LABCLIA [id number] [place] [address] [place] FASTING TIME 12 hrs Normal [facility] Comment on above: Order Comment: Speci men Type: BLOOD SPECIMENOrdering Facility: [facility] Address: [address] [place] [address] Performed By: #### 3 016-3, 65638-9 ####[facility] LABCLIA [id number] [place] [address] [place] Triglyceride [Mass/Vol] 89 mg/dL Normal <150 [facility] Comment on above: Order Comment: Speci men Type: BLOOD SPECIMENOrdering Facility: [facility] Address: [address] [place] [address] Result Comment: <150 mg/dL, Normal 150-199 mg/dL, Borderline high 200-499 mg/dL, High >499 mg/dL, Very high Performed By: #### 3 016-3, 56763-6 ####[facility] LABCLIA [id number] [place] [address] [place] TOXICOLOGY SCREEN, ROUTINE U RINEon 05-26-2024 Amphetamines Confirm (U) [Mass/Vol] Negative Normal Negative [facility] Comment on above: Order Comment: Speci men Type: URINE SPECIMENOrdering Facility: [facility] Address: [address] [place] [address] Result Comment: Cuto ff threshold at 1000 ng/mL. Performed By: #### U TOX2 ####[facility] LABCLIA [id number] [place] [address] [place] BARBITURATES, URINE Negative Normal Negative [facility] Comment on above: Order Comment: Speci men Type: URINE SPECIMENOrdering Facility: [facility] Address: [address] [place] [address] Result Comment: Cuto ff threshold at 200 ng/mL. Performed By: #### U TOX2 ####[facility] LABCLIA [id number] [place] [address] [place] BENZODIAZEPINES, UR Negative Normal Negative [facility] Comment on above: Order Comment: Speci men Type: URINE SPECIMENOrdering Facility: [facility] Address: [address] [place] [address] Result Comment: Cuto ff threshold at 200 ng/mL. Performed By: #### U TOX2 ####[facility] LABCLIA [id number] [place] [address] [place] Cannabinoids Screen Ql (U) Negative Normal Negative [facility] Comment on above: Order Comment: Speci men Type: URINE SPECIMENOrdering Facility: [facility] Address: [address] [place] [address] Result Comment: Cuto ff threshold at 50 ng/mL. Performed By: #### U TOX2 ####[facility] LABIA [id number] [place] [address] [place] Cocaine Ql (U) Negative Normal Negative [facility] Comment on above: Order Comment: Speci men Type: URINE SPECIMENOrdering Facility: [facility] Address: [address] [place] [address] Result Comment: Cuto ff threshold at 300 ng/mL. Performed By: #### U TOX2 ####[facility] LABIA [id number] [place] [address] [place] Ethanol (U) [Mass/Vol] <11 Normal <11 [facility] Comment on above: Order Comment: Speci men Type: URINE SPECIMENOrdering Facility: [facility] Address: [address] [place] [address] Performed By: #### U TOX2 ####[facility] LABCLIA [id number] [place] [address] [place] Opiates Screen Ql (U) Positive Abnormal Negative [facility] Comment on above: Order Comment: Speci men Type: URINE SPECIMENOrdering Facility: [facility] Address: [address] [place] [address] Result Comment: Cuto ff threshold at 300 ng/mL. Performed By: #### U TOX2 ####[facility] [id number] [place] [address] [place] oxyCODONE cutoff Screen (U) [Mass/Vol] Negative Normal Negative [facility] Comment on above: Order Comment: Speci men Type: URINE SPECIMENOrdering Facility: [facility] Address: [address] [place] [address] Result Comment: Cuto ff threshold at 100 ng/mL. Performed By: #### U TOX2 ####[facility] [id number] [place] [address] [place] Phencyclidine Ql (U) Negative Normal Negative [facility] Comment on above: Order Comment: Speci men Type: URINE SPECIMENOrdering Facility: [facility] Address: [address] [place] [address] Result Comment: Cuto ff threshold at 25 ng/mL. Performed By: #### U TOX2 ####[facility] [id number] [place] [address] [place] TSH SerPl-aCncon 05-26-2024 TSH Qn 1.360 m[IU]/L Normal 0.270-4.200 [facility] Comment on above: Order Comment: Speci men Type: BLOOD SPECIMENOrdering Facility: [facility] Address: [address] [place] [address] Result Comment: If t he patient is , TSH reference range varies by gestational period: First Trimester (weeks 9-12): 0.180-2.990 mIU/L Second Trimester: 0.110-3.980 mIU/L Third Trimester: 0.480-4.710 mIU/L Herman Iglesias et al. A Practical Approach for the Verifications and Determination of Site- and Trimester-Specific Reference Intervals for Thyroid Function tests in . Thyroid, 2019:29:3:412-420. Shay Barnes et al. 2017 Guidelines of the [place] Thy[employer] for the Diagnosis and Management of Thyroid Disease during and the . Thyroid, 2017:27:3:315-389. Performed By: #### 3 016-3, 67360-2 ####[facility] LABCLIA [id number] [address] [place] Abdomen and Pelvis W cont rast IVOrdered By: Ccf Provider on 03-07-2024 Interpretation and review of laboratory results Abnormal [facility] Radiology Result ACTIONABLE Abnormal [facility] Comment on above: This report contains an incidental or actionable finding. This finding may be a new finding separate from the reason your provider ordered the imaging test or it may be an already known finding that needs additional or continued follow-up. Because of this incidental or actionable finding, you may need another test (imaging or a different type of test). Please contact your provider for the next steps. [facility] CT Abdomen and Pelvis W cont rast Ángela 03-07-2024 IMPRESSION: 1. No clear-cut acute findings are identified. 2. Diverticulosis. 3. Findings suggestive of a small collapsing left ovarian cyst. 4. Fibroid uterus. 5. Small hypodense area in the region of the cervix with questionable fullness which may merely represent nabothian cysts; however, [id number] pelvic ultrasound may be helpful for further evaluation. ACTIONABLE RESULT: FOLLOW-UP Acuity: Actionable Findings: Female reproductive tract (pelvis, adnexa) Routing code: [email or web address] Recommendation: US FEMALE PELVIS NON-OB NON TORSION ([id number]) Time Frame: At the discretion of the clinical team. COMMUNICATION: Results will be communicated with the ordering provider via [employer] staff message or phone message by [facility] within 2 business days of report finalization. --END OF FINDING-- Tubing Tester: PSCB Transcribe Date/Time: Mar 07 2024 2:55P Dictated by : BIRD BLOUNT MD This examination was interpreted and the report reviewed and electronically signed by: BIRD BLOUNT MD on Mar 07 2024 3:11PM [facility] DIVISION OF RADIOLOGY * * *Final Report* * * DATE OF EXAM: Mar 07 2024 2:49PM [facility] [place] 0530 - CT ABD/PEL W IVCON / PROCEDURE REASON: multiple diagnoses * * * * Physician Interpretation * * * * EXAMINATION: CT ABDOMEN AND PELVIS WITH IV CONTRAST CLINICAL HISTORY: Left lower quadrant pain TECHNIQUE: CT of the abdomen and pelvis was performed using standard technique, scanning from just above the dome of the diaphragm to the symphysis pubis. MQ: CTAP_3 Contrast: IV: 100 ml of Omnipaque 350 Oral: 10 ml of Omni 240 10-25ml diluted with water CT Radiation dose: Integrated Dose-length product (DLP) for this visit = 345 mGy*cm. CT Dose Reduction Employed: Automated exposure control(AEC) and iterative recon COMPARISON: None. RESULT: Liver: A small hypodensity is noted in the dome of the liver measuring 7 mm which may represent a cyst but is difficult to characterize due to its small size. Biliary: No bile duct dilation. Gallbladder is absent. Spleen: No mass. No splenomegaly. Pancreas: No mass or duct dilation. Adrenals: No mass. Kidneys: No mass, calculus or hydronephrosis. GI tract: No dilation or wall thickening. There is a 1.8 cm gastric fundal diverticulum. No evidence of bowel obstruction. Scattered colonic diverticula are noted. No CT evidence of diverticulitis. The appendix appears normal. Lymph nodes: No abdominal or pelvic lymphadenopathy. Mesentery/Peritoneum: No ascites or mass. Retroperitoneum: No mass. Vasculature: - Abdominal aorta and iliac arteries: No aneurysm. - Celiac and SMA: Patent without stenosis. - Portal venous system (SMV, splenic vein, portal vein and branches): Patent. - Hepatic veins: Patent. Pelvis: A 1.5 cm collapsing left ovarian cyst is noted. The uterus has somewhat nodular appearance suggestive of a fibroid uterus. There is a 2.3 cm hypodense area noted in the region of the cervix with questionable fullness. Bones/Soft Tissues: Postsurgical changes are noted in the lower lumbar spine status post fusion at L4-S1 with metallic screws and a disc spacer at this level. There is a 2 cm periumbilical hernia containing fat. Lower thorax: An 8 mm calcified pulmonary nodule is noted at the left lung base consistent with old granulomatous disease. Mild linear densities are noted in the lingula consistent with atelectasis.. Localizer images: DIVISION OF RADIOLOGY Provider, [facility] - 03/07/2024 * * *Final Report* * * DATE OF EXAM: Mar 07 2024 2:49PM [facility] [place] 0530 - CT ABD/PEL W IVCON / PROCEDURE REASON: multiple diagnoses * * * * Physician Interpretation * * * * EXAMINATION: CT ABDOMEN AND PELVIS WITH IV CONTRAST CLINICAL HISTORY: Left lower quadrant pain TECHNIQUE: CT of the abdomen and pelvis was performed using standard technique, scanning from just above the dome of the diaphragm to the symphysis pubis. MQ: CTAP_3 Contrast: IV: 100 ml of Omnipaque 350 Oral: 10 ml of Omni 240 10-25ml diluted with water CT Radiation dose: Integrated Dose-length product (DLP) for this visit = 345 mGy*cm. CT Dose Reduction Employed: Automated exposure control(AEC) and iterative recon COMPARISON: None. RESULT: Liver: A small hypodensity is noted in the dome of the liver measuring 7 mm which may represent a cyst but is difficult to characterize due to its small size. Biliary: No bile duct dilation. Gallbladder is absent. Spleen: No mass. No splenomegaly. Pancreas: No mass or duct dilation. Adrenals: No mass. Kidneys: No mass, calculus or hydronephrosis. GI tract: No dilation or wall thickening. There is a 1.8 cm gastric fundal diverticulum. No evidence of bowel obstruction. Scattered colonic diverticula are noted. No CT evidence of diverticulitis. The appendix appears normal. Lymph nodes: No abdominal or pelvic lymphadenopathy. Mesentery/Peritoneum: No ascites or mass. Retroperitoneum: No mass. Vasculature: - Abdominal aorta and iliac arteries: No aneurysm. - Celiac and SMA: Patent without stenosis. - Portal venous system (SMV, splenic vein, portal vein and branches): Patent. - Hepatic veins: Patent. Pelvis: A 1.5 cm collapsing left ovarian cyst is noted. The uterus has somewhat nodular appearance suggestive of a fibroid uterus. There is a 2.3 cm hypodense area noted in the region of the cervix with questionable fullness. Bones/Soft Tissues: Postsurgical changes are noted in the lower lumbar spine status post fusion at L4-S1 with metallic screws and a disc spacer at this level. There is a 2 cm periumbilical hernia containing fat. Lower thorax: An 8 mm calcified pulmonary nodule is noted at the left lung base consistent with old granulomatous disease. Mild linear densities are noted in the lingula consistent with atelectasis.. Localizer images: IMPRESSION IMPRESSION: 1. No clear-cut acute findings are identified. 2. Diverticulosis. 3. Findings suggestive of a small collapsing left ovarian cyst. 4. Fibroid uterus. 5. Small hypodense area in the region of the cervix with questionable fullness which may merely represent nabothian cysts; however, utsaea-cs-ag pelvic ultrasound may be helpful for further evaluation. ACTIONABLE RESULT: FOLLOW-UP Acuity: Actionable Findings: Female reproductive tract (pelvis, adnexa) Routing code: WH_1 Recommendation: US FEMALE PELVIS NON-OB NON TORSION ([id number]) Time Frame: At the discretion of the clinical team. COMMUNICATION: Results will be communicated with the ordering provider via [employer] staff message or phone message by [employer] within 2 business days of report finalization. --END OF FINDING-- Tubing Tester: NAGI Transcribe Date/Time: Mar 07 2024 2:55P Dictated by : BIRD BLOUNT MD This examination was interpreted and the report reviewed and electronically signed by: BIRD BLOUNT MD on Mar 07 2024 3:11PM EST [facility] Radiology Study observation (narrative) [facility] UA DIP, URINE (POC)on 2023 BILIRUBIN UA (POCT) Negative Negative [facility] CLARITY UA (POCT) Clear [facility] COLOR UA (POCT) [place] [facility] GLUCOSE UA (POCT) 100 mg/dL Abnormal Negative [facility] Hemoglobin Ql (U) Negative Negative [facility] Interpretation and review of laboratory results Abnormal [facility] KETONE UA (POCT) Negative Negative mg/dL [facility] LEUKOCYTES UA (POCT) Negative Negative [facility] NITRITE UA (POCT) Positive Abnormal Negative [facility] PH UA (POCT) 5.5 4.5 - 8.0 [facility] Protein Ql (U) Trace Abnormal Negative mg/dL [facility] SPECIFIC GRAVITY UA (POCT) 1.010 1.005 - 1.030 [facility] UROBILINOGEN UA (POCT) 1.0 Ember l E.U./dL [facility] Location:[facility], [address] [place] [address], [place], [address] [facility] POINT OF CARE [facility] Urinalysis complete panel (U )Ordered By: Aline Virk on 03-07-2024 Bacteria LM.HPF (Urine sed) [#/Area] Negative Negative /HPF [facility] Bilirubin Ql (U) 1+ Abnormal Negative [facility] Comment on above: Suggest correlation with clinical findings and serum bilirubin if clinically indicated. Clarity (Unsp spec) Clear Clear [facility] Color (U) Dark Yellow Abnormal Yellow [facility] Epithelial cells LM.HPF (Urine sed) [#/Area] None Seen /HPF [facility] Glucose Test strip (U) [Mass/Vol] Negative Negative [facility] Hemoglobin Ql (U) Negative Negative [facility] Hyaline casts (Urine sed) [#/Area] 0 /[LPF] 0 /LPF [facility] Interpretation and review of laboratory results Abnormal [facility] Ketones Ql (U) Negative Negative [facility] Leukocyte esterase Test strip Ql (U) Trace Abnormal Negative [facility] Nitrite Ql (U) Negative Negative [facility] pH (U) 6.0 [pH] NINF - 8.5 [facility] Protein (U) [Mass/Vol] Negative Negative [facility] RBC LM.HPF (Urine sed) [#/Area] 0-2 /HPF 0-2 /HPF [facility] Specific gravity (U) [Rel density] 1.011 1.005 - 1.030 [facility] Urobilinogen Ql (U) 1.0 EU/dL 0.2-1.0 EU/dL [facility] WBC LM.HPF (Urine sed) [#/Area] 0-5 /HPF 0-5 /HPF [facility] Result rechecked. This test was developed and its performance characteristics determined by [facility]'s Brice Pryor [facility] Pathology and Laboratory Medicine [place] (-[facility]). It has not been cleared or approved by the FDA. -[facility] is regulated under CLIA as qualified to perform high-complexity testing. This test is used for clinical purposes. It should not be regarded as investigational or for research. [facility] XR Thoracic spine AP and Lat eral and Swimmerson 08-05-2023 IMPRESSION: No acute osseous abnormality Tubing Tester: NAGI Transcribe Date/Time: Aug 05 2023 10:09A Dictated by : SILVANA LOYA MD This examination was interpreted and the report reviewed and electronically signed by: SILVANA LOYA MD on Aug 05 2023 10:11AM [facility] DIVISION OF RADIOLOGY * * *Final Report* * * DATE OF EXAM: Aug 03 2023 7:11PM WOX 5261 - XR THORACIC 3V AP/LAT/SWIMMERS / PROCEDURE REASON: Acute left-sided thoracic back pain * * * * Physician Interpretation * * * * EXAMINATION: XR THORACIC 3V AP/LAT/SWIMMERS CLINICAL HISTORY: Pain in left side of neck radiating down into the left scapula for 4 weeks Technique: XR THORACIC 3V AP/LAT/SWIMMERS -- NOT APPLICABLE with 3 views on 3 images Comparison: None RESULT: No acute fracture or facet subluxation. Dextroscoliosis of the thoracolumbar spine. Intervertebral disc spaces are maintained. DIVISION OF RADIOLOGY Provider, [facility] - 08/05/2023 * * *Final Report* * * DATE OF EXAM: Aug 03 2023 7:11PM [facility] 5261 - XR THORACIC 3V AP/LAT/SWIMMERS / PROCEDURE REASON: Acute left-sided thoracic back pain * * * * Physician Interpretation * * * * EXAMINATION: XR THORACIC 3V AP/LAT/SWIMMERS CLINICAL HISTORY: Pain in left side of neck radiating down into the left scapula for 4 weeks Technique: XR THORACIC 3V AP/LAT/SWIMMERS -- NOT APPLICABLE with 3 views on 3 images Comparison: None RESULT: No acute fracture or facet subluxation. Dextroscoliosis of the thoracolumbar spine. Intervertebral disc spaces are maintained. IMPRESSION IMPRESSION: No acute osseous abnormality Tubing Tester: PSCB Transcribe Date/Time: Aug 05 2023 10:09A Dictated by : SILVANA LOYA MD This examination was interpreted and the report reviewed and electronically signed by: SILVANA LOYA MD on Aug 05 2023 10:11AM [facility] XR Thoracic spine AP and Lat eral and SwimmersOrdered By: Ccf Provider on 08-05-2023 [facility] XR Thoracic spine AP and Lat eral and Swimmerson 08-03-2023 Radiology Study observation (narrative) [facility] XR CERV OTHER 4V AP/LAT/OBLo n 07-25-2023 [facility] XR Cervical spine AP and Lat eral and obliqueon 07-25-2023 IMPRESSION: Negative. 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 The disc spaces, soft tissues, and neural foramina are within normal limits. No significant degenerative change is evident. DIVISION OF RADIOLOGY Provider, [facility] - 07/25/2023 * * *Final Report* * * DATE OF EXAM: Jul 25 2023 8:54AM [facility] 5311 - XR CERVICAL 4V AP/LAT/OBL / PROCEDURE REASON: multiple diagnoses * * * * Physician Interpretation * * * * PROCEDURE: Cervical spine INDICATION: Acute neck pain Radicular pain .3 weeks ago cleaning shower and curtain joseph went to fall and she ducked down and since then pain all along left side of neck into left shoulder TECHNIQUE: XR CERVICAL 4V AP/LAT/OBL COMPARISON: None FINDINGS: There is normal alignment without fracture or subluxation. The disc spaces, soft tissues, and neural foramina are within normal limits. No significant degenerative change is evident. IMPRESSION IMPRESSION: Negative. Tubing Tester: NAGI Transcribe Date/Time: Jul 25 2023 8:54A Dictated by : JUDY CARLSON MD This examination was interpreted and the report reviewed and electronically signed by: JUDY CARLSON MD on Jul 25 2023 8:55AM EST [facility] Radiology Study observation (narrative) [facility]and hastings [facility] XR Cervical spine AP and Lat eral and obliqueOrdered By: Ccf Provider on 07-25-2023 [facility] Knee 3 Viewson 12-03-2022 Knee 3 Views [facility] [address] [place] [address] Knee 3 Views MR#: [id number] Acct: [id number] Name: ANASTASIA SIMPSON Rep #: [id number] : 1975 F 46 From: Hieu Dang MD PCP: Dr. Jacek Scruggs MD Status: DEP AMB Study: Knee 3 Views Date of Exam: 12/03/22 Exam# [id number] Ordering Dr: Chele Villarreal DO STUDY: X-RAY - RIGHT KNEE REASON FOR EXAM: Female, 46 years old. Pain TECHNIQUE: 3 view(s) of the knee. COMPARISON: MR from 10/28/2022, plain film from 11/12/2022. FINDINGS: Normal visualized distal femur. Normal visualized proximal tibia and fibula. Normal proximal tibiofibular articulation. Normal medial femorotibial compartment. Subtle previously noted lateral tibial plateau fracture has undergone healing since the previous study but incomplete osseous union has yet to occur. Continued follow-up recommended to assure complete healing.. Normal patellofemoral articulation. The soft tissue structures are unremarkable. RAD/Knee 3 Views IMPRESSION: Healing minimally displaced lateral tibial plateau fracture Electronically Signed: Adrian Dang MD at 11:28 EDT , CC: Dr. Chele Villarreal DO; Dr. Jacek Scruggs MD Tubing Tester: Signed Normal [facility] Orthopedic Visit Reporton Orthopedic Visit Report [facility] [address] [place] [address] [address] [place], [place] [address] OFFICE VISIT Date of Service: 12/03/22 MR#: [id number] Acct: [id number] Name: ANASTASIA SIMPSON Rep #: [id number] : 1975 Provider: Dr. Chele bolden DO Age/Sex: 46/F Location[place] [facility] [place] Status: Signed Intake Vital Signs 10/26/22 15:19 Height 5 ft 6 in Weight: 125 lb BMI 20.1 BP 136/97 H Respiration 16 Pulse 77 Temp 97.2 F L Temp Source Temporal Pulse Oximetry (%) 99 Intake Visit Reasons: RIGHT KNEE Chief Complaint: right knee Is patient in pain?: Yes Allergies codeine Allergy (Verified 12/03/22 08:16) Other Sulfa (Sulfonamide Antibiotics) Allergy (Verified 12/03/22 08:16) Other [facility] Medical History Acute cholecystitis Age-related facial wrinkles Back problem Brow ptosis, bilateral Contusion of left knee Contusion of right knee Diarrhea Epigastric pain Forehead wrinkles Glabellar wrinkles History of blood transfusion Hypertension Lumbar radiculopathy Lumbar strain Migraines Skin cancer Strain of right hip Strain of right knee UTI (urinary tract infection) Surgical History History of laparoscopic cholecystectomy ( 08/2018) Previous back surgery S/P Botox injection Family History Other Arthritis Breast cancer Diabetes Heart disease High cholesterol Hypertension Social History Smoking Status: Never smoker alcohol intake: never substance use type: does not use additional social history: DOES NOT USE ASPIRIN DOES USE IBUPROFEN NEEDED HPI RIGHT KNEE Details: Parts of this documentation were recorded by a scribe, this documentation accurately reflects the service provided and the decisions made by me, Dr. Chele Villarreal DO 12/03/22 0348. ANASTASIA SIMPSON is a 46 year old F here today for follow-up right tibial plateau fracture DOI: 10/25/2022.Patient is doing well. She continues with physical therapy. She has pain with certain range of motion. Patient has decreased knee swelling and foot swelling. She continues to have decreased knee range of motion. She feels like her range of motion is blocked. Patient is partial weightbearing. She denies any pain medications. She states that last week she had redness of her 2nd toe on her right foot which has improved. Ortho Exam General General: Yes no acute distress Neurologic: Yes alert and Yes oriented x3 Psychologic: Yes reasonable and appropriate Right Knee Skin/Wound: Yes CDI, No erythema, No ecchymosis and No swelling Knee ROM: Yes ROM-Extension -20 to 0 and No ROM-Flexion 0-140 Examination: Yes Lat jt line tenderness Stability: NML: Anterior Drawer, NML: Posterior Drawer and NML: Varus 0 (with pain) Patella Translation: 1 KNEE: LCL pain with normal stability. second toe distal IP joint and distally purple discoloration - no signs of infection or open wound. Left Knee Patella Translation: 1 Supplemental Info 11/12/2022 x-ray right knee: No fracture displacement preserved joint space 10/28/2022 MRI right knee: Minimally displaced lateral tibial plateau fracture. Joint effusion MCL sprain 10/26/2022 x-ray right knee: Preserved joint space. Small joint effusion no osseous abnormality Coding Level of Care Code Off vis,est,level 3 Diagnoses Closed fracture of lateral portion of tibial plateau S82.123A Assessment and Plan Assessment and Plan (1) Closed fracture of lateral portion of tibial plateau: Status: Acute Orders: Orders Knee 3 Views Today S82.123A - Displaced fracture of lateral condyle of unspecified tibia, initial encounter for closed fracture Plan Spoke with the patient about have a depression into her plateau which is likely why she feels the clunk with range of motion. She should continue with physical therapy. Patient needs to be toe touch weightbearing for 2 additional weeks with her brace. Patient then may progress to weightbearing as tolerated. She may need an MRI to evaluate for possible lateral menical tear if she has painful mechanical symptoms however in light of her fracture noting could be done at this time anyway so we will continue to keep an eye on it. Follow up in 4 weeks or sooner if pain, swelling, numbness or associated symptoms, or concerns develop. All questions answered. Patient in agreement of plan. 12/03/22 0946 Date Chele Villarreal DO Cosigner Signature: Date (if applicable) CC: Normal [facility] Inital Evaluation (1) - PTon 11-17-2022 Inital Evaluation (1) - PT [facility] Physical Therapy [facility] [address] [place] [address] / REHABILITATION SERVICES INITIAL EVALUATION MR#: [id number] Acct: [id number] Name: ANASTASIA SIMPSON Rep #: [id number] : 1975 46 From: Kashif De DPT, OCS, CSCS Referring Dr.: Dr. Chele Villarreal DO Status: R EG RCR Insurance: [employer] SELF PAY INSURANCE Patient's Visit Information ANASTASIA SMIPSON is a 46 year old F referred to Physical Therapy by Dr. Chele Villarreal DO with a diagnosis of R knee tibial plateau fracture.lateral. Date of Evaluation: 11/17/22 Physical Therapist: Kashif De DPT, QUIN, CSCS - Visit Plan Frequency: 2x /Week Duration: 2 Months Plan: 2x/week for 4-8 weeks for... Pt is TTWB with brace only until doc f/u mid November. Work on ROM A/PROM, quad stretch, patellar mobs, VASO and ice as needed. NWB strength adn ensure TTWB gait going well. Progress when allowed by doctor. - Subjective R knee 3 weeks ago skiing twisted knee in flexiona nd heard her pop and hurt immediately. Hobbled down the hill. Went home the next day and to ER to get crutches and x ray. Nothing briken but thought she tore stuff. Hooked up with [facility] and MRI and fractured tibia plateau. Injury was 2/4 adn doctor was 10/29. In a brace since NWB R with crutches. F/U showed some healing and remains NWB and crutches. Next f/u in three weeks so is NWB for at least 3 more. No exercises. No precautions except NWB. showers without brace. Hurts to bend but feels good. Still wonky looking. Pain comes and goes. Not unbearable. Hurts knee to peters when it does and is deep throb intermittently. Worse if accidentally twisted. Sleep is not a big problem. 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 has to be efficient with one trip to the hospital. hobbies:none. Basic ADLs getting done , living alone. mom does grocery shopping and laundry. Using back pack. Does curbs but not full steps exept porch with a railing. Doing this but it is scary. - Pain R knee pain. Pain Intensity (Out of 10): 2 Pain Intensity Range: 0, 5 - Objective Walks into PT with B crutches NWB R mod I. Trasnfer chair and table I. steps NWB R with one rail and one crutch shown today and able without hands on assist. Ambulate TTWB R per doctor note with verbal cues mod I with the cues and out without assist. Don and doff brace I, unlocked. ankle aROM B WFL and not painful, feels good to pump ankles. Knee AROM L 0-135, R -5 to 112. Pain at PROM 0 ext and end range PROM in medial knee. Hip aROM WFL B, able to SLR but has quad lag 5 degrees and no pain if keeps knee bent. abd and ext able without pain, 4- hip strength. quad and HS not tested. Sensation LE to gross light touch WNL B. Patella mobility fair R and good L. Swelling is as expected R LE knee down minimal. - Balance/Special Test Scores Lower Extremity Functional Score: 11 - Goals Goal 1:: ST: 0-135 AROM R knee without pain Goal Time Frame: 2-4 Weeks Goal 2:: ST: sleep without waking due to pain or edema Goal Time Frame: 2-4 Weeks Goal 3:: LT: Walk when allowed by doctor without AD I in community Goal Time Frame: 6-8 Weeks Goal 4:: Steps reciprocally without pain or rail to facilitate laundry/work Goal Time Frame: 6-8 Weeks Goal 5:: LEFS 70 Goal Time Frame: 6-8 Weeks - Rehabilitation Potential Physical Therapy Diagnosis: Dre smith tibial plateau fracture. Rehabilitation Potential: Good - Anticipated Interventions Patient/Client Instruction: Educate patient on: Condition, Plan of Care For the Purpose of:: To decrease pain, To decrease swelling/inflammation , To increase ROM, To improve nutrient delivery to tissue, To improve muscle performance and motor function, To increase tolerance to activity/condition/po sition, To improve ability of physical actions for home/community/work/l eisure Therapeutic Exercise to Include: Strength training, Flexibilty training, Passive ROM, Active ROM For the Purpose of:: To decrease pain, To increase ROM, To improve nutrient delivery to tissue, To improve muscle performance and motor function, To increase tolerance to activity/condition/po sition, To improve ability of physical actions for home/community/work/l eisure, To improve gait and locomotor functions Manual Therapy Techniques to Include: Passive ROM, Soft tissue mobilization For the Purpose of:: To decrease pain, To decrease swelling/inflammation , To increase ROM Cryotherapy (ice pack, ice massage): Yes Vasopneumatic device: Yes For the Purpose of:: To decrease pain, To decrease swelling/inflammation Thank you for the opportunity to evaluate your patient. For Medicare and Medicare HMO plans, please review the plan of care and approve it. It will need to be FAXED BACK to us at [phone] for Medicare purposes. For Medicare only, by signing this I certify t (more content not included)... Normal [facility] Knee 3 Viewson 11-12-2022 Knee 3 Views [facility] [address] [place] [address] Knee 3 Views MR#: [id number] Acct: [id number] Name: ANASTASIA SIMPSON Rep #: [id number] : 1975 F 46 From: Kory Mccarty MD PCP: Dr. Jacek Scruggs MD Status: DEP AMB Study: Knee 3 Views Date of Exam: 11/12/22 Exam# [id number] Ordering Dr: Chele Villarreal DO STUDY: X-RAY - RIGHT KNEE REASON FOR EXAM: Female, 46 years old. Pain. TECHNIQUE: 3 view(s) of the knee. COMPARISON: None. FINDINGS: Normal visualized distal femur. Normal visualized proximal tibia and fibula. Normal proximal tibiofibular articulation. Normal medial femorotibial compartment. Normal lateral femorotibial compartment. Normal patellofemoral articulation. The soft tissue structures are unremarkable. RAD/Knee 3 Views IMPRESSION: No abnormality of the right knee. Electronically Signed: Kory Mccarty, at 10:16 EST , CC: Dr. Chele Villarreal DO; Dr. Jacek Scruggs MD Tubing Tester: Signed Normal [facility] Orthopedic Visit Reporton Orthopedic Visit Report [facility] [address] [place] [address] [place] [address] OFFICE VISIT Date of Service: 11/12/22 MR#: [id number] Acct: [id number] Name: ANASTASIA SIMPSON Rep #: [id number] : 1975 Provider: Dr. Chele bolden DO Age/Sex: 46/F Location: [facility] [place] Status: Signed Intake Intake Visit Reasons: RIGHT KNEE Chief Complaint: right knee Is patient in pain?: Yes Allergies codeine Allergy (Verified 11/12/22 08:03) Other Sulfa (Sulfonamide Antibiotics) Allergy (Verified 11/12/22 08:03) Other Medications sumatriptan succinate 50 mg tablet (Imitrex) 50 mg PO .PRN 04/19/19 [History Confirmed 11/12/22] propranolol 60 mg tablet 60 mg PO HS 02/23/20 [History Confirmed 11/12/22] escitalopram oxalate 5 mg tablet 5 mg PO DAILY 09/24/22 [History Confirmed 11/12/22] etodolac 500 mg tablet 500 mg PO BID #60 tabs 10/27/22 [Rx Confirmed 11/12/22] losartan 50 mg tablet 50 mg PO 10/27/22 [History Confirmed 11/12/22] PFSH Medical History Acute cholecystitis Age-related facial wrinkles Back problem Brow ptosis, bilateral Contusion of left knee Contusion of right knee Diarrhea Epigastric pain Forehead wrinkles Glabellar wrinkles History of blood transfusion Hypertension Lumbar radiculopathy Lumbar strain Migraines Skin cancer Strain of right hip Strain of right knee UTI (urinary tract infection) Surgical History History of laparoscopic cholecystectomy ( 08/2018) Previous back surgery S/P Botox injection Family History Other Arthritis Breast cancer Diabetes Heart disease High cholesterol Hypertension Social History Smoking Status: Never smoker alcohol intake: never substance use type: does not use additional social history: DOES NOT USE ASPIRIN DOES USE IBUPROFEN NEEDED HPI RIGHT KNEE Details: Parts of this documentation were recorded by a scribe, this documentation accurately reflects the service provided and the decisions made by me, Dr. Chele Villarreal, DO 11/12/22 2790. ANASTASIA SIMPSON is a 46 year old F here today for a followup on her right knee. Patient states that she has a constant achiness and throbbing from her knee into her peters. Patient has been using her crutches to ambulate. She has been wearing her TROM at all times. Patient removes her brace to move her knee daily. She states that her foot is swollen and she isnt able to get a shoe on due to her swelling. Patient states that starting on Thursday evening she developed redness over the top of her foot. She takes vicodin at night for pain. She takes her etodolac daily. Ortho Exam General General: Yes no acute distress Neurologic: Yes alert and Yes oriented x3 Psychologic: Yes reasonable and appropriate Right Knee Skin/Wound: No erythema, No ecchymosis and Yes swelling Knee ROM: No ROM-Extension -20 to 0 and No ROM-Flexion 0-140 Examination: Yes Med jt line tenderness and Yes Lat jt line tenderness KNEE: no calf pain no gross motor or sensory deficit Supplemental Info 11/12/2022 x-ray right knee: No fracture displacement preserved joint space 10/28/2022 MRI right knee: Minimally displaced lateral tibial plateau fracture. Joint effusion MCL sprain 10/26/2022 x-ray right knee: Preserved joint space. Small joint effusion no osseous abnormality Coding Level of Care Code Off vis,est,level 2 Diagnoses Closed fracture of lateral portion of tibial plateau S82.123A Assessment and Plan Assessment and Plan (1) Closed fracture of lateral portion of tibial plateau: Status: Acute Orders: Referrals Physical Therapy Referral S82.123A - Displaced fracture of lateral condyle of unspecified tibia, initial encounter for closed fracture Plan Patient will start physical therapy for swelling control, knee range of motion, no weighted resistant exercises edema control. She should continue to take her etodolac. Patient may begin toe touch weightbearing. She should continue to wear her brace. Follow up in 3 weeks with x-ray or sooner if pain, swelling, numbness or associated symptoms, or concerns develop. All questions answered. Patient in agreement of plan. 11/12/22 0854 Date Chele Villarreal DO Cosigner Signature: Date (if applicable) CC: Normal [facility] Orthopedic Visit Reporton Orthopedic Visit Report [facility] [address] [place] [address] OFFICE VISIT Date of Service: 10/29/22 MR#: [id number] Acct: [id number] Name: ANASTASIA SIMPSON Rep #: [id number] : 1975 Provider: Dr. Chele bolden DO Age/Sex: 46/F Location[place] [facility] [place] Status: Signed Intake Intake Visit Reasons: RIGHT KNEE Chief Complaint: right knee Is patient in pain?: Yes Allergies codeine Allergy (Verified 10/26/22 15:19) Other Sulfa (Sulfonamide Antibiotics) Allergy (Verified 10/26/22 15:19) Other Medications sumatriptan succinate 50 mg tablet (Imitrex) 50 mg PO .PRN 04/19/19 [History Confirmed 10/29/22] propranolol 60 mg tablet 60 mg PO HS 02/23/20 [History Confirmed 10/29/22] escitalopram oxalate 5 mg tablet 5 mg PO DAILY 09/24/22 [History Confirmed 10/29/22] etodolac 500 mg tablet 500 mg PO BID #60 tabs 10/27/22 [Rx Confirmed 10/29/22] losartan 50 mg tablet 50 mg PO 10/27/22 [History Confirmed 10/29/22] [facility] Medical History Acute cholecystitis Age-related facial wrinkles Back problem Brow ptosis, bilateral Contusion of left knee Contusion of right knee Diarrhea Epigastric pain Forehead wrinkles Glabellar wrinkles History of blood transfusion Hypertension Lumbar radiculopathy Lumbar strain Migraines Skin cancer Strain of right hip Strain of right knee UTI (urinary tract infection) Surgical History History of laparoscopic cholecystectomy ( 08/2018) Previous back surgery S/P Botox injection Family History Other Arthritis Breast cancer Diabetes Heart disease High cholesterol Hypertension Social History Smoking Status: Never smoker alcohol intake: never substance use type: does not use additional social history: DOES NOT USE ASPIRIN DOES USE IBUPROFEN NEEDED HPI RIGHT KNEE Details: Parts of this documentation were recorded by a scribe, this documentation accurately reflects the service provided and the decisions made by me, Dr. Chele Villarreal, DO 10/29/22 4421. ANASTASIA SIMPSON is a 46 year old F here today for F/U on the right knee after having MRI. Continues to use crutches and is ambulating partial weight bearing. her pain is controlled. Ortho Exam General General: Yes no acute distress Neurologic: Yes alert and Yes oriented x3 Psychologic: Yes reasonable and appropriate Right Knee Date of injury: 10/25/22 Skin/Wound: No erythema, No ecchymosis and Yes swelling Homans Sign: No 2+: Effusion Knee ROM: No ROM-Extension -20 to 0 (lacking 20) and No ROM-Flexion 0-140 (75) Examination: Yes Med jt line tenderness, Yes Lat jt line tenderness and Yes Maverick's Test Stability: NML: Anterior Drawer and NML: Posterior Drawer and 1+: Valgus 0, 1+: Valgus 30, 1+: Varus 0 and 1+: Varus 30 Patella Translation: 1 Apprehension with Lateral Translation: No KNEE: no quad defect intact patellar tendon significant pain with valgus stress but no instability 2mm lateral joint space opening with varus stress with lateral pain good end point with anterior drawer unable to preform complete Lucius d/t significant pain both medial and lateral symmetrical dial at 90 flexion and 60 flexion Left Knee Patella Translation: 1 Supplemental Info 10/28/2022 MRI right knee: Minimally displaced lateral tibial plateau fracture. Joint effusion MCL sprain 10/26/2022 x-ray right knee: Preserved joint space. Small joint effusion no osseous abnormality Coding Level of Care Code Off vis,est,level 3 Diagnoses Closed fracture of lateral portion of tibial plateau S82.123A Assessment and Plan Assessment and Plan (1) Closed fracture of lateral portion of tibial plateau: Status: Acute Plan Patient educated that she has a lateral tibial plateau fx. Educated that she should be NWB for about 6 weeks to allow the fx site to heal. Educated that she will not require surgery unless the fx site moves. Educated that she does not have any meniscus tearing. Patient given a TROM brace to wear. She can continue to ice and take tylenol for pain. If she needs to she can use the Follow up in 1 week with xrays or sooner if pain, swelling, numbness or associated symptoms, or concerns develop. All questions answered. Patient in agreement of plan. 10/29/22 1104 Date Chele Álvarez Signature: Date (if applicable) CC: Normal [facility] Lower Ext Joint Only (Routin e)on 10-28-2022 Lower Ext Joint Only (Routine) [facility] Imaging Services [address] [place] [address] Lower Ext Joint Only (Routine) MR#: [id number] Acct: [id number] Name: ANASTASIA SIMPSON Rep #: [id number] : 1975 F 46 From: Kory Mccarty MD PCP: Dr. Jacek Scruggs MD Status: REG CLI Study: Lower Ext Joint Only (Routine) Date of Exam: 0 10/28/22 Exam# [id number] Ordering Dr: Chele Villarreal DO STUDY: MRI RIGHT KNEE REASON FOR EXAM: Female, 46 years old. Skiing injury 4 days ago. [place] a pop. TECHNIQUE: Standardized fat and water weighted pulse sequences were obtained in all 3 orthogonal planes. COMPARISON: Knee x-rays dated October 26, 2022. FINDINGS: Normal medial meniscus. Normal hyaline cartilage of the medial femorotibial compartment. Normal medial femoral condyle and tibial plateau. Mild MCL sprain (coronal series 7 image 15). Normal distal semimembranosus, gracilis and semitendinosus tendons. Normal lateral meniscus. Normal hyaline cartilage of the lateral femorotibial compartment. Extensive subchondral bone marrow edema in the lateral tibial plateau with cortical disruption. Findings are compatible with a minimally displaced lateral tibial plateau fracture (sagittal series 5 images 4-10, coronal series 7 images 12-19). Normal proximal tibiofibular articulation. Normal lateral collateral (fibular) ligament. Normal popliteus tendon. Normal biceps femoris tendon. Normal anterior cruciate ligament (ACL). Normal posterior cruciate ligament (PCL). Normal congruent patellofemoral articulation. Normal hyaline cartilage of the patellofemoral compartment. Normal medial and lateral patellar retinaculum. Normal quadriceps tendon. Normal patellar tendon. Normal Hoffa''s fat pad. Large joint effusion with medial plica. Large septated dissecting popliteal cyst which has ruptured with resulting posterior compartmental edema (axial series 3 images 3-22). The soft tissues are unremarkable. The otherwise visualized osseous structures are unremarkable. MRI/Lower Ext Joint Only (Routine) IMPRESSION: Mild MCL sprain. Minimally displaced lateral tibial plateau fracture. Large joint effusion with medial plica. Large septated dissecting popliteal cyst with rupture and posterior compartmental edema. Electronically Signed: Kory Mccarty, at 12:30 EST , CC: Dr. Chele Villarreal DO; Dr. Jacek Scruggs MD Tubing Tester: Signed Normal [facility] Orthopedic Visit Reporton Orthopedic Visit Report [facility] [address] [place] [address] OFFICE VISIT Date of Service: 10/27/22 MR#: [id number] Acct: [id number] Name: ANASTASIA SIMPSON Rep #: [id number] : 1975 Provider: Dr. Chele bolden DO Age/Sex: 46/F Location: [facility] [place] Status: Signed Intake Vital Signs 10/26/22 15:19 Height 5 ft 6 in Weight: 125 lb BMI 20.1 BP 136/97 H Respiration 16 Pulse 77 Temp 97.2 F L Temp Source Temporal Pulse Oximetry (%) 99 Intake Visit Reasons: RIGHT KNEE Chief Complaint: return to work Accompanied by: Self Is patient in pain?: Yes Allergies codeine Allergy (Verified 10/26/22 15:19) Other Sulfa (Sulfonamide Antibiotics) Allergy (Verified 10/26/22 15:19) Other Medications sumatriptan succinate 50 mg tablet (Imitrex) 50 mg PO .PRN 04/19/19 [History Confirmed 10/27/22] propranolol 60 mg tablet 60 mg PO HS 02/23/20 [History Confirmed 10/27/22] escitalopram oxalate 5 mg tablet 5 mg PO DAILY 09/24/22 [History Confirmed 10/27/22] meloxicam 15 mg tablet 15 mg PO DAILY #14 tabs 10/26/22 [Rx Confirmed 10/27/22] etodolac 500 mg tablet 500 mg PO BID #60 tabs 10/27/22 [Rx Confirmed 10/27/22] losartan 50 mg tablet 50 mg PO 10/27/22 [History Confirmed 10/27/22] PFS Medical History Acute cholecystitis Age-related facial wrinkles Back problem Brow ptosis, bilateral Contusion of left knee Contusion of right knee Diarrhea Epigastric pain Forehead wrinkles Glabellar wrinkles History of blood transfusion Hypertension Lumbar radiculopathy Lumbar strain Migraines Skin cancer Strain of right hip Strain of right knee UTI (urinary tract infection) Surgical History History of laparoscopic cholecystectomy ( 08/2018) Previous back surgery S/P Botox injection Family History Other Arthritis Breast cancer Diabetes Heart disease High cholesterol Hypertension Social History Smoking Status: Never smoker alcohol intake: never substance use type: does not use additional social history: DOES NOT USE ASPIRIN DOES USE IBUPROFEN NEEDED HPI RIGHT KNEE Details: Parts of this documentation were recorded by a scribe, this documentation accurately reflects the service provided and the decisions made by me, Dr. Chele Villarreal, 10/27/22 0949. ANASTASIA SIMPSON is a 46 year old F here today for new right knee injury. DOI: 10/25/2022 She states that she skiing in [place] on Thursday and her ski rotated inward causing her right knee to twist and she heard and felt a loud painful pop over the anterior lateral knee. She was forced to walk the hill after the injury but she is unable to WB on the right knee since the injury. She has anterior lateral knee pain as well as medial knee pain. She was seen at the ED and had xrays and was given meloxicam. She is unable to fully flex or extend the knee and states she feels like something is blocking her from doing so she also complains of instability does not feel the knee could support her. Ortho Exam General General: Yes no acute distress Neurologic: Yes alert and Yes oriented x3 Psychologic: Yes reasonable and appropriate Right Knee Date of injury: 10/25/22 Skin/Wound: No erythema, No ecchymosis and Yes swelling Homans Sign: No 2+: Effusion Knee ROM: No ROM-Extension -20 to 0 (lacking 20) and No ROM-Flexion 0-140 (75) Examination: Yes Med jt line tenderness, Yes Lat jt line tenderness and Yes Maverick's Test Stability: NML: Anterior Drawer and NML: Posterior Drawer and 1+: Valgus 0, 1+: Valgus 30, 1+: Varus 0 and 1+: Varus 30 Patella Translation: 1 Apprehension with Lateral Translation: No KNEE: no quad defect intact patellar tendon significant pain with valgus stress but no instability 2mm lateral joint space opening with varus stress with lateral pain good end point with anterior drawer unable to preform complete Lucius d/t significant pain both medial and lateral symmetrical dial at 90 flexion and 60 flexion Left Knee Patella Translation: 1 Supplemental Info 10/26/2022 x-ray right knee: Preserved joint space. Small joint effusion no osseous abnormality Coding Level of Care Code Off vis,est,level 3 Diagnoses Injury of knee, right S89.91XA Assessment and Plan Assessment and Plan (1) Injury of knee, right: Status: Acute Orders: Orders Lower Ext Joint Only (Routine) Today M25.361 - Other instability, right knee, S89.91XA - Unspecified injury of right lower leg, initial encounter Medications: New etodolac 500 mg PO BID 60 tabs 0RF Plan Obtained X-rays o (more content not included)... Normal [facility] Emergency Department Summary on 10-26-2022 Emergency Department Summary [facility] Medical Records Department [address] [place] [address] Emergency Department Summary 10/26/22 MR#: [id number] Acct: [id number] Name: ANASTASIA SIMPSON Rep #: [id number] : 1975 46 From: Kirit Goldberg MD PCP: Dr. Jacek Scruggs MD Status:REG ER Location: ED HPI History of Present Illness Chief Complaint: Lower Extremity Injury Informant: patient Occured/Mechanism Comment: skiing, see below Onset/Context/Timing Onset: Yesterday Context: Sudden Onset Timing: Continuous Quality of Pain: Aching Location: R knee and down into ankle area Current Severity: Moderate Maximum Severity: Severe Worsened by: bending, walking/WBing Relieved by: rest, ice Associated Symptoms Associated Symptoms: Negative for Parasthesia or Weakness Narrative Narrative: Patient was skiing in [place] yesterday, she states she had a minor fall as a result of her skis crossing in her right ski was forcibly rotated before her foot came out of it and forced internal rotation, as the patient is describing it to me. She felt a pop and immediate pain in the right knee and ankle area and has been having difficulty ever since. PFSH PFSH Medical History Acute cholecystitis Age-related facial wrinkles Back problem Brow ptosis, bilateral Contusion of left knee Contusion of right knee Diarrhea Epigastric pain Forehead wrinkles Glabellar wrinkles History of blood transfusion Hypertension Lumbar radiculopathy Lumbar strain Migraines Skin cancer Strain of right hip Strain of right knee UTI (urinary tract infection) Home Medications sumatriptan succinate 50 mg tablet (Imitrex) 50 mg PO .PRN 04/19/19 [History Last Taken Unknown] propranolol 60 mg tablet 60 mg PO HS 02/23/20 [History Last Taken Unknown] escitalopram oxalate 5 mg tablet 5 mg PO DAILY 09/24/22 [History Last Taken Unknown] meloxicam 15 mg tablet 15 mg PO DAILY #14 tabs 10/26/22 [Rx Last Taken Unknown] Allergy/AdvReac Type Severity Reaction Status Date / Time codeine Allergy Other Verified 10/26/22 15:19 Sulfa (Sulfonamide Allergy Other Verified 10/26/22 15:19 Antibiotics) Family History Other Arthritis Breast cancer Diabetes Heart disease High cholesterol Hypertension Surgical History History of laparoscopic cholecystectomy ( 08/2018) Previous back surgery S/P Botox injection Social History Smoking Status: Never smoker alcohol intake: never substance use type: does not use additional social history: DOES NOT USE ASPIRIN DOES USE IBUPROFEN NEEDED ROS ROS ED Constitutional Constitutional ED: Denies chills or fever(s) Musculoskeletal Musculoskeletal: Reports extremity pain; Denies neck pain Integumentary Denies Abrasions, rash or wounds Neurologic Neurologic: Denies paresthesias or weakness EXAM Physical Exam Const Vital Signs: 10/26/22 15:19 Temperature 97.2 F L Temperature Source Temporal Pulse Rate 77 Respiratory Rate 16 Blood Pressure 136/97 H Blood Pressure Mean 110 Pulse Ox 99 Oxygen Delivery Method Room Air Positive well nourished and well developed General Appearance ED: well developed and NAD Neck full ROM and supple Back/Spine normal ROM and normal to inspection Extremity Extremity Narrative: Right knee effusion with associated mild anterior soft tissue tenderness. No bony tenderness. Very limited range of motion. Extensor mechanism is intact but she is not able to fully extend due to pain. She can flex about 20 degrees. There is pain with stressing the MCL but no significant laxity. She also has pain with posterior drawer but this is very limited since she is having trouble flexing. On attempting to perform anterior and posterior drawer signs/Douglas, she does not have any laxity in the joint seems stable. There is no excessive warmth and no erythema. With regard to the right ankle she has painless full range of motion, there is no bony tenderness throughout the right ankle or foot and no swelling to suggest an injury. Neurovascularly intact distally. Also can range her right hip without any pain in the groin. Neuro oriented x3, no focal motor deficits and no sensory deficits noted Sensorium / Orientation: alert Psych mental status grossly normal and thought process normal Skin no wounds Rashes: no rashes MDM MDM MDM Narrative Medical decision making narrative: 4 view x-ray series of the right knee were obtained, they are negative for any acute bony abnormality on my interpretation including fractures or dislocation. She does have an effusion. Radiolog (more content not included)... Normal [facility] Knee 4 or More Viewson 10-26 Knee 4 or More Views [facility] Imaging Services [address] [place] [address] Knee 4 or More Views MR#: [id number] Acct: [id number] Name: ANASTASIA SIMPSON Rep #: [id number] : 1975 F 46 From: Roque Pollard MD PCP: Dr. Jacek Scruggs MD Status: REG ER Study: Knee 4 or More Views Date of Exam: 10/26/22 Exam# [id number] Ordering Dr: Kirit Goldberg MD EXAM: XR RIGHT KNEE COMPLETE, 4 OR MORE VIEWS CLINICAL INDICATION: injury TECHNIQUE: Four or more views of the right knee. This report was created using [employer] report generation technology. COMPARISON: 04/28/2022 FINDINGS: BONES/JOINTS: There is a small suprapatellar joint effusion. No acute fracture. No subluxation. Normal alignment. No sclerotic or destructive changes observed. SOFT TISSUES: Unremarkable. No soft tissue swelling or gas. No radiopaque foreign body. RAD/Knee 4 or More Views IMPRESSION: Suprapatellar joint effusion. There are no osseous abnormalities. Electronically Signed: Roque Pollard MD at 16:16 EST , CC: Dr. Kirit Goldberg MD; Dr. Jacek Scruggs MD Tubing Tester: Signed Normal [facility] Echo Completeon 09-30-2022 Echo Complete [facility] Cardiovascular Services [address] [place] [address] Echo Complete 09/30/22 0909 MR#: [id number] Acct: [id number] Name: ANASTASIA SIMPSON Rep #: [id number] : 1975 46 From: Trell Conn MD Attending Dr: MARANDA Fofana Status: REG CLI Ordering Dr: Page Galan Date: 09/21 Location: [facility] Sex: F C Admitted: Reason For Study: HTN Procedure This was a 2D Doppler, Color Flow transthoracic echocardiogram. Exam performed in department. Left Ventricle Normal LV size. Left ventricular systolic function is normal. The estimated ejection fraction is 60 %. Normal diastology for age. No regional wall motion abnormalities noted. Right Ventricle Normal RV size. Normal systolic function. Atria Normal left atrium. Normal right atrium. Mitral Valve Normal mitral valve. Tricuspid Valve Normal tricuspid valve. Aortic Valve Normal aortic valve. Trisinus/trileaflet aortic valve. Pulmonic Valve Normal pulmonic valve. Great Vessels Normal aortic root. The pulmonary artery is normal size. Normal inferior vena cava. Pericardium/Pleural No pericardial effusion. MMode/2D Measurements Calculations LVIDd: 4.1 cm IVSd: 0.80 cm Ao root diam: 3.1 cm LVIDs: 2.6 cm LVPWd: 0.83 cm LA dimension: 2.8 cm RVDd: 2.5 cm FS: 35.8 % LAV(MOD-bp): 30.4 ml LA A4 area: 9.9 cm2 RA A4 area: 10.9 cm2 LAV(MOD-bp) Indexed: 18.8 ml/m2 LAV(MOD-sp2): 38.7 ml LAV(MOD-sp4): 20.2 ml Time Measurements MV dec time: 0.21 sec Doppler Measurements Calculations MV E max sonja: 74.7 cm/sec Lat Peak E' Sonja: 12.4 cm/sec Med Peak E' Sonja: 9.5 cm/sec MV A max sonja: 55.7 cm/sec E/E' lat: 6.0 E/E' med: 7.8 MV E/A: 1.3 MV V2 max: 81.5 cm/sec MV P1/2t max sonja: 81.9 cm/sec Ao V2 max: 94.4 cm/sec MV max P.7 mmHg MV P1/2t: 69.1 msec Ao max P.6 mmHg MV V2 mean: 39.1 cm/sec MV dec slope: 346.9 cm/sec2 MV mean P.77 mmHg MVA(P1/2t): 3.2 cm2 MV V2 VTI: 24.8 cm LV V1 max: 93.5 cm/sec PA V2 max: 68.7 cm/sec LV V1 max P.5 mmHg LV V1 mean P.0 mmHg LV V1 mean: 67.8 cm/sec LV V1 VTI: 20.0 cm ECHO/Echo Complete Interpretation Summary Normal LV size. Left ventricular systolic function is normal. The estimated ejection fraction is 60 %. Normal diastology for age. Structurally normal valves. Ordering Physician: Page Galan Referring Physician: Jacek Scruggs Performed By: Seamus Sanchez RCS 09/30/22942 Date Trell Conn MD CC: MARANDA Galan; Dr. Jacek Scruggs MD Date Dictated: 09/30/22908 Date Transcribed: 09/30/22942 Tubing Tester: Signed Normal [facility] 12 Lead EKG performed by [facility] [place] 09-24-2022 12 Lead EKG performed by [facility] [address] [place] [address] 12 Lead EKG performed by [facility] [place] 09/24/22 1339 MR#: [id number] Acct: [id number] Name: ANASTASIA SIMPSON Rep #: [id number] : 1975 46 From: Page LOW PA Attending Dr: MARANDA Fofana Status: DEP AMB Ordering Dr: Page Galan Date: 01/11 [place] [facility] [place] Sex: F C Admitted: BMS/12 Lead EKG performed by [facility] [place] ECG Report Interpretation -----Sinus Rhythm -Incomplete right bundle branch block. -Left atrial enlargement. ABNORMAL Electronically signed on 09/28/2022 at 16:53 by Trell Connwood Software Version [id number] 09/28/22 1658 Date Page LOW CC: Dr. Jacek Scruggs MD Date Dictated: 09/24/221338 Date Transcribed: 09/24/221338 Tubing Tester: DIANELYS Signed Normal [facility] Absolute lymphocyte countOrd ered By: Page Galan on 09-24-2022 Lymphocytes Auto (Unsp spec) [#/Vol] 2.00 10*3/uL 0.83-4.51 [facility] Basic Metabolic Profile (BMP )on 09-24-2022 GAP 2 Low 5-15 [facility] Comment on above: Performed By: #### L [phone], L501.5200, L500.2500, L100.0100 ####[facility] [address] [place], [address] BUN/CRE 18.7 RATIO Normal 10-20 [facility] Comment on above: Performed By: #### L 501.9520, L501.5200, L500.2500, L100.0100 ####[facility] [address] [place], [address] CA,Total 9.1 mg/dL Normal 8.5-10.1 [facility] Comment on above: Performed By: #### L 501.9520, L501.5200, L500.2500, L100.0100 ####[facility] [address] [place], [address] Chloride [Moles/Vol] 104 mmol/L Normal 98-107 [facility] Comment on above: Performed By: #### L 501.9520, L501.5200, L500.2500, L100.0100 ####[facility] [address] [place], [address] CO2 [Moles/Vol] 30.0 mmol/L Normal 21.0-32.0 [facility] Comment on above: Performed By: #### L 501.9520, L501.5200, L500.2500, L100.0100 ####[facility] [address] [place], [address] Creatinine [Mass/Vol] 0.69 mg/dL Normal 0.55-1.02 [facility] Comment on above: Result Comment: The validity of the calculated GFR GFRAA in patients over 70 years has not been determined. Clinical correlation is essential. Performed By: #### L 501.9520, L501.5200, L500.2500, L100.0100 ####[facility] [address] [place], [address] EST GFR - AA 117 mL/min Normal >60 [facility] Comment on above: Result Comment: Afri can Turkmen GFR Calc Performed By: #### L 501.9520, L501.5200, L500.2500, L100.0100 ####[facility] [address] [place], [address] GFR/1.73 sq M.predicted among non-blacks MDRD (S/P/Bld) [Vol rate/Area] 96 mL/min/{1.73_m2} Normal >60 [facility] Comment on above: Result Comment: Non- GFR Calc Performed By: #### L 501.9520, L501.5200, L500.2500, L100.0100 ####[facility] [address] [place], [address] Glucose [Mass/Vol] 101 mg/dL Normal 74-106 [facility] Comment on above: Result Comment: Fast ing Glucose result from 100 to 125 mg/dL suggests IMPAIRED HOMEOSTASIS per A.D.A. criteria. Performed By: #### L 501.9520, L501.5200, L500.2500, L100.0100 ####[facility] [address] [place], [address] Potassium [Moles/Vol] 3.9 mmol/L Normal 3.5-5.1 [facility] Comment on above: Performed By: #### L 501.9520, L501.5200, L500.2500, L100.0100 ####[facility] [address] [place], [address] Sodium [Moles/Vol] 136 mmol/L Normal 136-145 [facility] Comment on above: Performed By: #### L 501.9520, L501.5200, L500.2500, L100.0100 ####[facility] [address] [place], [address] Urea nitrogen [Mass/Vol] 13 mg/dL Normal 7-18 [facility] Comment on above: Performed By: #### L 501.9520, L501.5200, L500.2500, L100.0100 ####[facility] [address] [place], [address] Basophil percentageOrdered B y: Page Galan on 09-24-2022 Basophils/100 WBC (Bld) 1.1 % 0-1 [facility] Chloride [Moles/Vol] 104 mmol/L 98-107 [facility] Eosinophils/100 WBC (Bld) 1.1 % 0-5 [facility] Glucose [Mass/Vol] 101 mg/dL 74-106 [facility] Comment on above: Fasting Glucose resu lt from 100 to 125 mg/dL suggests IMPAIRED HOMEOSTASIS per A.D.A. criteria. Neutrophils (Bld) [#/Vol] 3.8 10*3/uL 2.0-7.7 [facility] Neutrophils/100 WBC (Bld) 57.7 % 47-70 [facility] Potassium [Moles/Vol] 3.9 mmol/L 3.5-5.1 [facility] Sodium [Moles/Vol] 136 mmol/L 136-145 [facility] WBC (Bld) [#/Vol] 6.5 10*3/uL 4.4-11.0 [facility] Blood erythrocytes count (nu mber/volume)Ordered By: Page Galan on 09-24-2022 RBC (Bld) [#/Vol] 4.56 10*6/uL 4.2-5.4 [facility] Blood hemoglobin measurement (mass/volume)Ordered By: Page Galan on 09-24-2022 Hemoglobin (Bld) [Mass/Vol] 13.5 g/dL 12.0-15.0 [facility] Blood lymphocytes/100 leukoc ytesOrdered By: Page Galan on 09-24-2022 Lymphocytes/100 WBC (Bld) 30.8 % 19-41 [facility] Blood monocytes/100 leukocyt esOrdered By: Page Galan on 09-24-2022 Monocytes/100 WBC (Bld) 8.8 % 0-10 [facility] Blood platelet mean volumeOr dered By: Page Galan on 09-24-2022 Platelet mean volume (Bld) [Entitic vol] 9.9 fL 6.2-12.0 [facility] CBC W/Diff, Automatedon Absolute Lymph 2.00 X10 3/uL Normal 0.83-4.51 [facility] Comment on above: Performed By: #### L 501.7044, L501.5200, L500.2500, L100.0100 ####[facility] [address] [place], [address] Absolute Neut 3.8 X10 3/uL Normal 2.0-7.7 [facility] Comment on above: Performed By: #### L 501.9520, L501.5200, L500.2500, L100.0100 ####[facility] [address] [place], [address] Basophils/100 WBC (Bld) 1.1 % High 0-1 [facility] Comment on above: Performed By: #### L 501.9520, L501.5200, L500.2500, L100.0100 ####[facility] [address] [place], [address] Eosinophils/100 WBC (Bld) 1.1 % Normal 0-5 [facility] Comment on above: Performed By: #### L 501.9520, L501.5200, L500.2500, L100.0100 ####[facility] [address] [place], [address] Erythrocyte distribution width (RBC) [Ratio] 13.1 % Normal 11.6-14.6 [facility] Comment on above: Performed By: #### L 501.9520, L501.5200, L500.2500, L100.0100 ####[facility] [address] [place], [address] Hematocrit (Bld) [Volume fraction] 41.9 % Normal 37-47 [facility] Comment on above: Performed By: #### L 501.9520, L501.5200, L500.2500, L100.0100 ####[facility] [address] [place], [address] Hemoglobin (Bld) [Mass/Vol] 13.5 g/dL Normal 12.0-15.0 [facility] Comment on above: Performed By: #### L 501.9520, L501.5200, L500.2500, L100.0100 ####[facility] [address] [place], [address] IG% 0.500 Normal 0.0-0.9 [facility] Comment on above: Result Comment: IG% - Immature Granulocytes (promyelocytes, myelocytes and metamyelocytes) > 1% indicates that a LEFT SHIFT is Present. Performed By: #### L 501.9520, L501.5200, L500.2500, L100.0100 ####[facility] [address] [place], [address] Lymphocytes/100 WBC (Bld) 30.8 % Normal 19-41 [facility] Comment on above: Performed By: #### L 501.9520, L501.5200, L500.2500, L100.0100 ####[facility] [address] [place], [address] MCH (RBC) [Entitic mass] 29.6 pg Normal 27.0-32.0 [facility] Comment on above: Performed By: #### L 501.9520, L501.5200, L500.2500, L100.0100 ####[facility] [address] [place], [address] MCHC (RBC) [Mass/Vol] 32.2 g/dL Normal 32-36 [facility] Comment on above: Performed By: #### L 501.9520, L501.5200, L500.2500, L100.0100 ####[facility] [address] [place], [address] MCV (RBC) [Entitic vol] 91.9 fL Normal 81-99 [facility] Comment on above: Performed By: #### L 501.9520, L501.5200, L500.2500, L100.0100 ####[facility] [address] [place], [address] Monocytes/100 WBC (Bld) 8.8 % Normal 0-10 [facility] Comment on above: Performed By: #### L 501.9520, L501.5200, L500.2500, L100.0100 ####[facility] [address] [place], [address] Neutrophils/100 WBC (Bld) 57.7 % Normal 47-70 [facility] Comment on above: Performed By: #### L 501.9520, L501.5200, L500.2500, L100.0100 ####[facility] [address] [place], [address] Nucleated RBC (Bld) [#/Vol] 0 10*3/uL Normal 0-5 [facility] Comment on above: Performed By: #### L 501.9520, L501.5200, L500.2500, L100.0100 ####[facility] [address] [place], [address] Platelet mean volume (Bld) [Entitic vol] 9.9 fL Normal 6.2-12.0 [facility] Comment on above: Performed By: #### L 501.9520, L501.5200, L500.2500, L100.0100 ####[facility] [address] [place], [address] Platelets (Bld) [#/Vol] 224 10*3/uL Normal 150-450 [facility] Comment on above: Performed By: #### L 501.9520, L501.5200, L500.2500, L100.0100 ####[facility] [address] [place], [address] RBC (Bld) [#/Vol] 4.56 10*6/uL Normal 4.2-5.4 [facility] Comment on above: Performed By: #### L 501.9520, L501.5200, L500.2500, L100.0100 ####[facility] [address] [place], [address] RDW SD 44.2 fl High 35.1-43.9 [facility] Comment on above: Performed By: #### L 501.9520, L501.5200, L500.2500, L100.0100 ####[facility] [address] [place], [address] WBC (Bld) [#/Vol] 6.5 10*3/uL Normal 4.4-11.0 [facility] Comment on above: Performed By: #### L 501.9520, L501.5200, L500.2500, L100.0100 ####[facility] [address] [place], [address] Cardiology Visit Reporton Cardiology Visit Report [facility] [address] [place], [place] [address] OFFICE VISIT Date of Service: 09/24/22 MR#: [id number] Acct: [id number] Name: ANASTASIA SIMPSON Rep #: [id number] : 1975 Provider: MARANDA Webb Age/Sex: 46/F Location[place] [facility] [place] Status: Signed HPI HPI History of Present Illness Details: Anastasia Simpson is a 46 year old female that presents here today for concerns over palpitations, lightheadedness, shortness of breath and atypical chest discomfort. Patient notes that the symptoms have been progressively getting worse over the last several months. She does have a family history of coronary artery disease and this is concerning for her. She does have a history of hypertension and is on medication for this. Patient states that she notices the palpitations more so at night when she is laying down. She does feel that her heart is racing. When she does check her pulse it does feel fast. This can last for several minutes. She also notes that when she gets into the shower she does feel lightheaded at times. She also notes that she is more short of breath at times. She does have substernal chest discomfort that is atypical and not brought on with exertion. She has not had any syncopal events. She does not have any lower extremity edema. It is noted that her blood pressure is elevated today however when she had it checked at her PCP office last month it was normal. She has not had any recent cardiac testing done. Intake Vital Signs 09/24/22 13:49 09/24/22 13:52 Height 5 ft 6 in 5 ft 6 in BP 140/100 H Pulse 88 Intake Visit Reasons: PER MMM / [employer] Allergies betamethasone [From Celestone] Allergy (Verified 04/28/22 14:06) Unknown betamethasone sodium phosphate [From Celestone] Allergy (Verified 04/28/22 14:06) Unknown codeine Allergy (Verified 04/28/22 14:06) Other Sulfa (Sulfonamide Antibiotics) Allergy (Verified 04/28/22 14:06) Other Medications sumatriptan succinate 50 mg tablet (Imitrex) 50 mg PO .PRN 04/19/19 [History Confirmed 09/24/22] propranolol 60 mg tablet 60 mg PO HS 02/23/20 [History Confirmed 09/24/22] escitalopram oxalate 5 mg tablet 5 mg PO DAILY 09/24/22 [History Confirmed 09/24/22] [facility] Medical History (Updated 09/24/22 @ 13:41 by Page LOW, [place]) Acute cholecystitis Age-related facial wrinkles Back problem Brow ptosis, bilateral Contusion of left knee Contusion of right knee Diarrhea Epigastric pain Forehead wrinkles Glabellar wrinkles History of blood transfusion Hypertension Lumbar radiculopathy Lumbar strain Migraines Skin cancer Strain of right hip Strain of right knee UTI (urinary tract infection) Surgical History History of laparoscopic cholecystectomy ( 08/2018) Previous back surgery S/P Botox injection Family History Other Arthritis Breast cancer Diabetes Heart disease High cholesterol Hypertension Social History Smoking Status: Never smoker alcohol intake: never substance use type: does not use additional social history: DOES NOT USE ASPIRIN DOES USE IBUPROFEN NEEDED ROS Const Const: Negative for fatigue, weakness, headache(s), frequent falls, excessive sweating, weight gain or weight loss Eyes Eyes: Negative for blind spots, loss of peripheral vision, transient loss of vision, blurry vision, change in vision or double vision ENT ENT: Negative for headache(s), dizziness, tinnitus, Nosebleed/epistaxis or balance problems Cardio Chest Pain: Yes Palpitations: Yes Edema: None Muscle aches with walking: None Resp Respiratory: Positive for SOB with activity; Negative for SOB at rest, SOB orthopnea SOB lying down or Cough GI GI: Negative nausea, vomiting, heartburn, bloating, vomiting blood/hematemesis, bright, red blood in stools or black,tarry stools : Negative for hematuria Musc Musc: Negative for muscle aches/ myalgia, muscle weakness, joint pain or balance problems Skin Skin: Negative rash or wounds Neuro Neuro: Positive for lightheadedness; Negative for dizziness, near syncope, syncope, orthostatic symptoms, frequent falls, headache(s), weakness, confusion, memory loss, restless legs, blurry vision or double vision Peng Hematologic/Lymphatic : Negative for easy bleeding or easy bruising Endo Endo: Negative for fatigue, cold intolerance, heat intolerance or excessive sweating Psych Psych: Negative for anxiety or depression Allergy Allergy/Immunology: Negative for rash Cardiology Exam Const Appearance: cooperative, healthy appearing, comfortable, no acute distress and well developed Orientation: alert, awake and oriente (more content not included)... Normal [facility] Determination of erythrocyte mean corpuscular volume (MCV)Ordered By: Page Galan on 09-24-2022 MCV (RBC) [Entitic vol] 91.9 fL 81-99 [facility] Hematocrit Auto (Bld) [Volum e fraction]Ordered By: Page Galan on 09-24-2022 Hematocrit (Bld) [Volume fraction] 41.9 % 37-47 [facility] Laboratory - Chemistry and C hemistry - challengeOrdered By: Page Galan on 09-24-2022 CO2 [Moles/Vol] 30.0 mmol/L 21.0-32.0 [facility] Magnesium [Mass/Vol] 2.3 mg/dL 1.6-2.6 [facility] Urea nitrogen/Creatinine [Mass ratio] 18.7 mg/mg 10-20 [facility] Laboratory - Hematology and Cell countsOrdered By: Page Galan on 09-24-2022 Erythrocyte distribution width (RBC) [Entitic vol] 44.2 fL 35.1-43.9 [facility] Erythrocyte distribution width (RBC) [Ratio] 13.1 % 11.6-14.6 [facility] Immature granulocytes/100 WBC (Bld) 0.500 % 0.0-0.9 [facility] Comment on above: IG% - Immature Granu locytes (promyelocytes, myelocytes and metamyelocytes) > 1% indicates that a LEFT SHIFT is Present. MCH (RBC) [Entitic mass] 29.6 pg 27.0-32.0 [facility] Nucleated RBC/100 WBC (Bld) [Ratio] 0 % 0-5 [facility] MCHC Auto (RBC) [Mass/Vol]Or dered By: Page Galan on 09-24-2022 MCHC (RBC) [Mass/Vol] 32.2 g/dL 32-36 [facility] Magnesiumon 09-24-2022 Magnesium [Mass/Vol] 2.3 mg/dL Normal 1.6-2.6 [facility] Comment on above: Performed By: #### L 501.9520, L501.5200, L500.2500, L100.0100 ####[facility] [address] [place], [address] No Panel InformationOrdered By: Page Galan on 09-24-2022 Estimated GFR (MDRD) Amer 117 mL/min >60 [facility] Comment on above: GFR Calc Estimated GFR (MDRD) Non-Af Amer 96 mL/min >60 [facility] Comment on above: Non- GFR Calc Thyroid Stimulating Hormone (TSH) 1.55 uIU/mL 0.358-3.74 [facility] Platelets bldOrdered By: Shruthi Galan on 09-24-2022 Platelets (Bld) [#/Vol] 224 10*3/uL 150-450 [facility] Serum or plasma calcium nicol urement (mass/volume)Ordered By: Page Galan on 09-24-2022 Calcium [Mass/Vol] 9.1 mg/dL 8.5-10.1 [facility] Serum or plasma creatinine m easurement (mass/volume)Ordered By: Page Galan on 09-24-2022 Creatinine [Mass/Vol] 0.69 mg/dL 0.55-1.02 [facility] Comment on above: The validity of the calculated GFR & GFRAA in patients over 70 years has not been determined. Clinical correlation is essential. Serum or plasma urea nitroge n measurement (mass/volume)Ordered By: Page Galan on 09-24-2022 Urea nitrogen [Mass/Vol] 13 mg/dL 7-18 [facility] Thin prep Papanicolaou smear with manual screeningOrdered By: Page Galan on 09-24-2022 Thin prep Papanicolaou smear with manual screening 2 5-15 [facility] Thyroid Stim Hormone (TSH)on 09-24-2022 TSH 1.55 uIU/mL Normal 0.358-3.74 [facility] Comment on above: Performed By: #### L 501.9520, L501.5200, L500.2500, L100.0100 ####[facility] [address] [facility] [place], [address] Cerv Spine 2 or 3 Viewson Cerv Spine 2 or 3 Views [facility] [address] [place] [address] Cerv Spine 2 or 3 Views MR#: [id number] Acct: [id number] Name: ANASTASIA SIMPSON Rep #: [id number] : 1975 F 46 From: Hieu Dang MD PCP: Dr. Jacek Scruggs MD Status: DEP AMB Study: Cerv Spine 2 or 3 Views Date of Exam: 09/03/22 Exam# [id number] Ordering Dr: Rafi Martinez STUDY: X-RAY - CERVICAL SPINE REASON FOR EXAM: Female, 46 years old. Headache and neck pain TECHNIQUE: 3 view(s) of the cervical spine were obtained. COMPARISON: None FINDINGS: Normal anterior atlantoaxial articulation. Normal odontoid process. Normal cervical lordosis. Normal vertebral bodies and endplates. Normal disc space heights. Normal visualized intervertebral neuroforamina. The soft tissue structures are unremarkable. RAD/Cerv Spine 2 or 3 Views IMPRESSION: Normal x-ray examination of the visualized cervical spine. Electronically Signed: Adrian Dang MD at 12:35 EST , CC: MARANDA Martinez; Dr. Jacek Scruggs MD Tubing Tester: Signed Normal [facility] Shoulder min 2 Viewson 09-03 Shoulder min 2 Views [facility] [address] [place] [address] Shoulder min 2 Views MR#: [id number] Acct: [id number] Name: ANASTASIA SIMPSON Rep #: [id number] : 1975 F 46 From: Hieu Dang MD PCP: Dr. Jacek Scruggs MD Status: DEP AMB Study: Shoulder min 2 Views Date of Exam: 09/03/22 Exam# [id number] Ordering Dr: Rafi Martinez STUDY: X-RAY - RIGHT SHOULDER REASON FOR EXAM: Female, 46 years old. Pain and stiffness TECHNIQUE: 4 view(s) of the shoulder. COMPARISON: None. FINDINGS: Normal glenohumeral articulation. Normal acromioclavicular joint. Normal acromion. Normal humeral head and visualized proximal humerus. The soft tissue structures are unremarkable. Normal visualized pulmonary apex. RAD/Shoulder min 2 Views IMPRESSION: Normal x-ray examination of the shoulder. Electronically Signed: Adrian Dang MD at 12:36 EST , CC: MARANDA Martinez; Dr. Jacek Scruggs MD Tubing Tester: Signed Normal [facility] Orthopedic Visit Reporton Orthopedic Visit Report [facility] [address] [place] [address] [address] [place] [address] OFFICE VISIT Date of Service: 09/03/22 MR#: [id number] Acct: [id number] Name: ANASTASIA SIMPSON Rep #: [id number] : 1975 Provider: MARANDA Martinez Age/Sex: 46/F Location[place] [facility] [place] Status: Signed with Addenda ADDENDUM by Lisa Vidal on 09/03/22 at 1552 Office Procedure Documentation entered by Lisa Vidal 09/03/22 15:52: Office Meds Kenalog Performing Provider: MARANDA Herrera Administered by: MARANDA Herrera on 09/03/22 15:51 Dose Route Admin Location Lot Number Expiration Date [place] Manufactu rer 40 mg intra-articular right shoulder [id number] 06/21/23 7969-8090-07 [employer] [facility] Comments: Depo Injection bupivacaine 0.25% 1mL lot : [id number] exp : 10/22/23 ND : 9660-3998-08 Depo-Medrol 4mL lot : [id number] exp 12/20/24 NDC : 7937-9760-52 09/03/22 1553 Date Lisa Vidal cc: * Signed Intake Vital Signs 04/28/22 14:03 09/01/22 12:27 Height 5 ft 6 in 5 ft 6 in Intake Visit Reasons: Right shoulder Chief Complaint: return to work Accompanied by: Self Is patient in pain?: Yes Pain scale (1-10): 4 Allergies betamethasone [From Celestone] Allergy (Verified 04/28/22 14:06) Unknown betamethasone sodium phosphate [From Celestone] Allergy (Verified 04/28/22 14:06) Unknown codeine Allergy (Verified 04/28/22 14:06) Other Sulfa (Sulfonamide Antibiotics) Allergy (Verified 04/28/22 14:06) Other Medications sumatriptan succinate 50 mg tablet (Imitrex) 50 mg PO .PRN 04/19/19 [History Confirmed 09/03/22] propranolol 60 mg tablet 60 mg PO HS 02/23/20 [History Confirmed 09/03/22] hydrocodone-acetamino phen 5-325mg 5mg-325mg 1 tab PO Q6H PRN PRN Pain 10/20/20 [History Confirmed 09/03/22] cyclobenzaprine 5 mg tablet 5 mg PO TID PRN muscle spasm #21 tabs 09/03/22 [Rx Confirmed 09/03/22] famotidine 20 mg tablet 20 mg PO 09/03/22 [History Confirmed 09/03/22] PFSH Medical History Acute cholecystitis Age-related facial wrinkles Back problem Brow ptosis, bilateral Contusion of left knee Contusion of right knee Diarrhea Epigastric pain Forehead wrinkles Glabellar wrinkles History of blood transfusion Hypertension Lumbar radiculopathy Lumbar strain Migraines Skin cancer Strain of right hip Strain of right knee UTI (urinary tract infection) Surgical History History of laparoscopic cholecystectomy ( 08/2018) Previous back surgery S/P Botox injection Family History Other Arthritis Breast cancer Diabetes Heart disease High cholesterol Hypertension Social History Smoking Status: Never smoker alcohol intake: never substance use type: does not use additional social history: DOES NOT USE ASPIRIN DOES USE IBUPROFEN NEEDED HPI Right shoulder Details: Parts of this documentation were recorded by a scribe, this documentation accurately reflects the service provided and the decisions made by , MARANDA Moreira 09/02/22 0497. ANASTASIA SIMPSON is a 46 year old F here today for right shoulder injury that happened on Thursday. She states that she was pulling her Sneha tree up the stairs and the box slipped and pulled/jerked her pain. She had localized right deltoid pain. The pain now radiates into the right side of her neck and down the right arm into the hand. SHe has been icing and taking NSAIDs for the pain. She is right handed. She states that the pain has became worse. She states that she has pain that radiates down her right arm into the right hand. Denies numbness, tingling or other associated symptoms. Cervical rotation to the left causes increased right arm pain. Denies any past surgery on the right shoulder. She does report having an injection in the right shoulder about 10 years ago from an aggravation injury. She does report having a flushing reaction from the steroid in the past. She has had some painful popping in the right shoulder. This has occurred about 3 times in the last week. Ortho Exam General General: Yes no acute distress Neurologic: Yes alert and Yes oriented x3 Psychologic: Yes reasonable and appropriate Right Shoulder Skin/Wound: No ecchymosis, No erythema and No swelling Testing: Positive Hawkin's, Neer's, AROM-Forward Elevation 0-180, PROM-External Rotation at side 0- 60, empty can, lift off and belly press normal; Negative Speed's, TTP Biceps, TTP AC Joint, Drop Arm, Yergason's, Sulcus Sign or translation Internal Rotation: T12 SHOULDER: Patient has no acute or gross abnormalit (more content not included)... Normal [facility] Culture, urineOrdered By: St swapna Sylvester on 08-06-2022 Bacteria identified Cx Nom (U) Escherichia coli [facility] Urine Cultureon 08-06-2022 URC Escherichia coli [place] Count 50,000-80,000 Escherichia coli: REACTION Ampicillin Islt SHRUTHI 4 S Ampicillin+Sulbac Islt SHRUTHI <=2 S ceFAZolin Islt SHRUTHI <=4 S Cefepime Islt SHRUTHI <=0.12 S cefTRIAXone Islt SHRUTHI <=0.25 S Ciprofloxacin Islt SHRUTHI <=0.25 S Ertapenem Islt SHRUTHI <=0.12 S B-Lactamase Extended Susc Islt NEG Gentamicin Islt SHRUTHI <=1 S Imipenem Islt SHRUTHI <=0.25 S levoFLOXacin Islt SHRUTHI <=0.12 S Nitrofurantoin Islt SHRUTHI <=16 S Pip+Tazo Islt SHRUTHI <=4 S Tobramycin Islt SHRUTHI <=1 S TMP SMX Islt SHRUTHI <=20 S Normal [facility] Comment on above: Performed By: #### L 400.0001, M100.2200 ####[facility] [id number] [place], [address] Basophil percentageOrdered B y: Russ Sylvester on 08-04-2022 Basophil percentage 10-25 SEEN /hpf 0-5 [facility] Bilirubin Test strip Ql (U)O rdered By: Russ Sylvester on 08-04-2022 Bilirubin Ql (U) Negative Negative [facility] Ketones Test strip Ql (U)Ord ered By: Russ Sylvester on 08-04-2022 Ketones Ql (U) 5 mg/dl Negative [facility] Laboratory - Chemistry and C hemistry - challengeon 08-04-2022 Bilirubin Ql (U) Negative [facility] Glucose Ql (U) Negative [facility] Ketones Ql (U) Trace (5) [facility] pH (U) 6.0 [pH] [facility] Specific gravity (U) [Rel density] 1.025 [facility] Urobilinogen (U) [Mass/Vol] Negative [facility] Laboratory - Hematology and Cell countson 08-04-2022 Hemoglobin Ql (U) Moderate [facility] Laboratory - Specimen inform ationon 08-04-2022 Clarity (U) Turbid [facility] Color (U) YELLOW [facility] Laboratory - Urinalysison Nitrite Ql (U) Negative [facility] Protein Ql (U) Negative [facility] Mucus LM Ql (Urine sed)Order ed By: Russ Sylvester on 08-04-2022 Mucus Ql (Urine sed) 0 SEEN /hpf [facility] Nitrite Test strip Ql (U)Ord ered By: Russ Sylvester on 08-04-2022 Nitrite Ql (U) Negative Negative [facility] No Panel Informationon 08-04 Urine Leukocytes Positive [facility] Urine Non-Hemolyzed Blood Non-Hemolyzed [facility] Protein Test strip Ql (U)Ord ered By: Russ Sylvester on 08-04-2022 Protein Ql (U) Negative Negative [facility] Squamous epithelial cells de tection in urine sediment by light microscopyOrdered By: Russ Sylvester on 08-04-2022 Epithelial cells.squamous LM Ql (Urine sed) 0-5 SEEN /hpf 5-10 [facility] Urgent Care Visit Reporton 1 10-04-2021 Urgent Care Visit Report [facility] [address] [place] [address] [address] [place] [id number] OFFICE VISIT Date of Service: 08/04/22 MR#: [id number] Acct: [id number] Name: ANASTASIA SIMPSON Rep #: [id number] : 1975 Provider: MARANDA johnson Age/Sex: 46/F Location: [facility] Status: Signed Intake Vital Signs 04/28/22 14:03 08/04/22 07:22 Height 5 ft 6 in Weight: 120 lb BMI 19.3 BP 121/105 H 108/68 Blood Pressure Location Lt brachial Position Sitting Respiration 16 14 Pulse 85 95 Pulse Source Monitor Temp 97.6 F L 97.9 F Temp Source Temporal Temporal Pulse Oximetry (%) 98 99 Oxygen Delivery Method room air Intake Visit Reasons: CONCERN FOR UTI Chief Complaint: return to work Allergies betamethasone [From Celestone] Allergy (Verified 04/28/22 14:06) Unknown betamethasone sodium phosphate [From Celestone] Allergy (Verified 04/28/22 14:06) Unknown codeine Allergy (Verified 04/28/22 14:06) Other Sulfa (Sulfonamide Antibiotics) Allergy (Verified 04/28/22 14:06) Other [facility] Medical History (Updated 08/04/22 @ 07:53 by Russ LOW, PA) Acute cholecystitis Age-related facial wrinkles Back problem Brow ptosis, bilateral Contusion of left knee Contusion of right knee Diarrhea Epigastric pain Forehead wrinkles Glabellar wrinkles History of blood transfusion Hypertension Lumbar radiculopathy Lumbar strain Migraines Skin cancer Strain of right hip Strain of right knee UTI (urinary tract infection) Surgical History History of laparoscopic cholecystectomy ( 08/2018) Previous back surgery S/P Botox injection Family History Other Arthritis Breast cancer Diabetes Heart disease High cholesterol Hypertension Social History Smoking Status: Never smoker alcohol intake: never substance use type: does not use additional social history: DOES NOT USE ASPIRIN DOES USE IBUPROFEN NEEDED HPI HPI Chief Complaint: return to work Details: ANASTASIA SIMPSON, is a 46 F who presents to the office today for acute onset dysuria and urinary frequency beginning this morning. No c/o fever, chills, sweats, cp/ sob, or mid back pain. Pt admits to recently having been dx'd w/ COVID-19, suffering n/v/d for several days (having just resolved 24 hrs ago). No otc products taken to assist w/ UTI complaints. No other associated symptoms and no other +/- factors. ROS Const Constitutional: No other (as above) Exam Const General: cooperative, healthy appearing and no acute distress Nutritional Appearance: average body habitus Orientation: alert, awake and oriented x3 HENMT Head: normal to inspection Ears: hearing grossly normal bilaterally and external ears normal Nose: external nose normal Chest Chest palpation inspection: normal inspection of the chest Resp Effort Inspection: normal respiratory effort and able to speak in complete sentences Cardio Rate: regular rate Pulses: radial pulses present GI Inspection: normal to inspection Palpation: soft, not firm, no guarding and tender suprapubicly General: No CVA tenderness Skin General: no rashes or lesions noted Neuro General: patient alert, patient awake and patient oriented x3 Cognition: normal cognition Speech: speech normal Extrem General: normal to inspection Psych Appearance: grossly normal Mental Status: mental status grossly normal Mood: congruent mood Affect: normal affect Speech and Movement: speech and movement normal Attitude: cooperative Thought Process: normal Thought Content: normal Judgment: judgment good Results POC Urinalysis Dip (Clinic) Office Urine Color YELLOW Last Edit by Lea Crowell on 08/04/22 07:32 Office Urine Clarity Turbid Last Edit by Lea Crowell on 08/04/22 07:32 Office Urine Glucose Negative Last Edit by Lea Crowell on 08/04/22 07:32 Office Urine Ketones Trace (5) Last Edit by Lea Crowell on 08/04/22 07:32 Off Ur Spec Costa 1.025 Last Edit by Lea Crowell on 08/04/22 07:32 Office Urine pH 6.0 Last Edit by Lea Crowell on 08/04/22 07:32 Office Urine Bilirubin Negative Last Edit by Lea Crowell on 08/04/22 07:32 Office Urine Urobilinogen Negative Last Edit by Lea Crowell on 08/04/22 07:32 Office Urine Blood Moderate Last Edit by Lea Crowell on 08/04/22 07:32 Office Urine Blood Hemolyzed Non-Hemolyzed Last Edit by Lea Crowell on 08/04/22 07:32 Office Urine Protein Negative Last Edit by Lea Crowell on 08/04/22 07:32 Office Urine Nitrate Negative Last Edit by Lea Crowell on 08/04/22 07:32 Off Ur Leukocytes Positive Last Edit by Lea Riddle (more content not included)... Normal [facility] Urinalysis, Completeon 08-04 BACTERIA 1+ /hpf Normal None Seen [facility] Comment on above: Order Comment: CLEAN CATCH Performed By: #### L 400.0001, ####[facility] [id number] [place], [address] EPI,SQUAMOUS 0-5 SEEN Normal 5-10 [facility] Comment on above: Order Comment: CLEAN CATCH Performed By: #### L 400.0001, ####[facility] [address] [place], [address] RBC 0-5 SEEN Normal 0-5 [facility] Comment on above: Order Comment: CLEAN CATCH Performed By: #### L 400.0001, ####[facility] [id number] [place], [address] WBC 10-25 SEEN Normal 0-5 [facility] Comment on above: Order Comment: CLEAN CATCH Performed By: #### L 400.0001, M100.2200 ####[facility] [address] [place], [address] Mucus Ql (Urine sed) 0 SEEN Normal [facility] Comment on above: Order Comment: CLEAN CATCH Performed By: #### L 400.0001, M100.2200 ####[facility] [address] [place], [address] Urine blood detectionOrdered By: Russ Sylvester on 08-04-2022 RBC Ql (U) 25 /ul Negative [facility] RBC Ql (U) 0-5 SEEN /hpf 0-5 [facility] Urine clarityOrdered By: Rajesh Sylvester on 08-04-2022 Clarity (U) Sl. Cloudy Clear [facility] Urine color determinationOrd ered By: Russ Sylvester on 08-04-2022 Color (U) Yellow Yellow [facility] Urine glucose detectionOrder ed By: Russ Sylvester on 08-04-2022 Glucose Ql (U) Normal mg/dl Normal [facility] Urine leukocyte esterase det ection by dipstickOrdered By: Russ Sylvester on 08-04-2022 Leukocyte esterase Test strip Ql (U) 100 /ul Negative [facility] Urine pHOrdered By: Russ caballero on 08-04-2022 pH (U) 6.0 [pH] 5.0 - 8.0 [facility] Urine sediment bacteria coun t by microscopy (number/high power field)Ordered By: Russ Sylvester on 08-04-2022 Bacteria LM.HPF (Urine sed) [#/Area] 1 /[HPF] None Seen [facility] Urine specific gravity measu rementOrdered By: Russ Sylvester on 08-04-2022 Specific gravity (U) [Rel density] 1.020 1.002-1.030 [facility] Urobilinogen Auto test strip Ql (U)Ordered By: Russ Sylvester on 08-04-2022 Urobilinogen Ql (U) Normal mg/dl Normal [facility] SARS-CoV-2 (COVID-19) RNA NA A+probe Ql (Resp)on 07-27-2022 SARS-CoV-2 (COVID-19) RNA BRANDYN+probe Ql (Unsp spec) Positive [facility] XR WRIST GENERAL 3V PA/LAT/O BL LEFTon 05-19-2022 [facility] XR Wrist - left PA and Later al and Obliqueon 05-19-2022 IMPRESSION: No Acute Fracture. Tubing Tester: NAGI Transcribe Date/Time: May 19 2022 3:47P Dictated by : CONCHIS LEON MD This examination was interpreted and the report reviewed and electronically signed by: CONCHIS LEON MD on May 19 2022 3:48PM [facility] DIVISION OF RADIOLOGY * * *Final Report* * * DATE OF EXAM: May 19 2022 3:41PM WOX [id number] - XR WRIST 3V PA/LAT/OBL LT / PROCEDURE REASON: Sprain of left wrist, subsequent encounter * * * * Physician Interpretation * * * * EXAMINATION: XR WRIST 3V PA/LAT/OBL LT HISTORY: Pt fell 3 weeks ago. Continued dorsal left wrist pain. Sprain of left wrist, subsequent encounter. TECHNIQUE: XR WRIST 3V PA/LAT/OBL LT Laterality: LEFT Number of different views (projections): 3 M: XB_1 COMPARISON: There are no prior studies for comparison. RESULT: 3 views of the left wrist show no acute osseous, articular or soft tissue abnormality. The radiocarpal and intercarpal articulations are intact. DIVISION OF RADIOLOGY Provider, [facility] - 05/19/2022 * * *Final Report* * * DATE OF EXAM: May 19 2022 3:41PM WOX 5270 - XR WRIST 3V PA/LAT/OBL LT / PROCEDURE REASON: Sprain of left wrist, subsequent encounter * * * * Physician Interpretation * * * * EXAMINATION: XR WRIST 3V PA/LAT/OBL LT HISTORY: Pt fell 3 weeks ago. Continued dorsal left wrist pain. Sprain of left wrist, subsequent encounter. TECHNIQUE: XR WRIST 3V PA/LAT/OBL LT Laterality: LEFT Number of different views (projections): 3 M: XB_1 COMPARISON: There are no prior studies for comparison. RESULT: 3 views of the left wrist show no acute osseous, articular or soft tissue abnormality. The radiocarpal and intercarpal articulations are intact. IMPRESSION IMPRESSION: No Acute Fracture. Tubing Tester: PSCB Transcribe Date/Time: May 19 2022 3:47P Dictated by : CONCHIS LEON MD This examination was interpreted and the report reviewed and electronically signed by: CONCHIS LEON MD on May 19 2022 3:48PM EST [facility] Radiology Study observation (narrative) [facility] XR Wrist - left PA and Later al and ObliqueOrdered By: Ccf Provider on 05-19-2022 [facility] Brain/Head without Contrasto n 04-28-2022 Brain/Head without Contrast [facility] Imaging Services [address] [place] [address] Brain/Head without Contrast MR#: [id number] Acct: [id number] Name: ANASTASIA SIMPSON Rep #: [id number] : 1975 F 46 From: Sami carlson MD PCP: Dr. Jacek Scruggs MD Status: REG ER Study: Brain/Head without Contrast Date of Exam: 05/12 Exam# [id number] Ordering Dr: Luis Kearney MD STUDY: CT BRAIN WITHOUT CONTRAST REASON FOR EXAM: Female, 46 years old. Head injury due to a fall. RADIATION DOSAGE (If Supplied By Facility): CTDIvol = ( 47.06 ) mGy, DLP = ( 907.97 ) mGycm TECHNIQUE: Transaxial CT imaging of the brain was performed without administration of intravenous contrast material. Individualized dose optimization techniques were used for this CT. COMPARISON: No relevant priors. FINDINGS: Normal soft tissue structures. There is a 5.8 mm dense ossification arising from the inner table of the left frontal bone most likely represents a small osteoma. Normal size ventricles and extra-axial spaces for the patient''s age. Normal white matter tracts of the cerebral hemispheres. Normal basal ganglia and thalami. Normal brainstem. Normal cerebellum. There is no intracranial hemorrhage. There are no findings of an acute ischemic infarction. Normal visualized paranasal sinuses. CT/Brain/Head without Contrast IMPRESSION: No acute abnormality is seen. Electronically Signed: Sami Gordon MD at 15:43 EDT , CC: Dr. Luis Kearney MD; Dr. Jacek Scruggs MD Tubing Tester: Signed Normal [facility] Emergency Department Summary on 04-28-2022 Emergency Department Summary [facility] Medical Records Department [address] [place] [address] Emergency Department Summary 04/28/22 MR#: [id number] Acct: [id number] Name: ANASTASIA SIMPSON Rep #: [id number] : 1975 46 From: Luis Kearney MD PCP: Dr. Jacek Scruggs MD Status:REG ER Location: ED HPI History of Present Illness Chief Complaint: Fall Informant: patient Narrative Narrative: Patient was running across a parking lot. She jumped down a wall that was about 2 feet. She states she landed and everything happened very quickly. But she did fall. She hit her head. She landed on her hand. She did not lose consciousness. But she does have some mild nausea that is improving. She also has a mild foggy feeling that is not normal for her. She also has left wrist pain. She has a slight amount of right knee pain. She has some slight abrasions. Motion makes her areas worse. She is not on significant anticoagulation. [facility] Medical History Acute cholecystitis Age-related facial wrinkles Back problem Brow ptosis, bilateral Contusion of left knee Contusion of right knee Diarrhea Epigastric pain Forehead wrinkles Glabellar wrinkles History of blood transfusion Hypertension Lumbar radiculopathy Lumbar strain Migraines Skin cancer Strain of right hip Strain of right knee Home Medications sumatriptan succinate 50 mg tablet (Imitrex) 50 mg PO .PRN 04/19/19 [History Last Taken Unknown] propranolol 60 mg tablet 60 mg PO HS 02/23/20 [History Last Taken Unknown] hydrocodone-acetamino phen 5-325mg 5mg-325mg 1 tab PO Q6H PRN PRN Pain 10/20/20 [History Last Taken Unknown] Allergy/AdvReac Type Severity Reaction Status Date / Time betamethasone Allergy Unknown Verified 04/28/22 14:06 [From Celestone] betamethasone sodium Allergy Unknown Verified 04/28/22 14:06 phosphate [From Celestone] codeine Allergy Other Verified 04/28/22 14:06 Sulfa (Sulfonamide Allergy Other Verified 04/28/22 14:06 Antibiotics) Family History Other Arthritis Breast cancer Diabetes Heart disease High cholesterol Hypertension Surgical History History of laparoscopic cholecystectomy ( 08/2018) Previous back surgery S/P Botox injection Social History Smoking Status: Never smoker alcohol intake: never substance use type: does not use additional social history: DOES NOT USE ASPIRIN DOES USE IBUPROFEN NEEDED ROS ROS ED Constitutional Constitutional ED: Denies fever(s) Eyes Eyes: Denies change in vision ENT ENT ED: Reports other Details: Contusion left frontal ; Denies rhinorrhea Cardiovascular Cardiovascular: Denies chest pain Respiratory/Chest Respiratory/Chest: Denies cough Gastrointestinal Gastrointestinal: Reports nausea; Denies vomiting Musculoskeletal Musculoskeletal: Reports arthralgias Integumentary Reports Abrasions Neurologic Neurologic: Reports headache(s) and other Details: Has a nonspecific foggy feeling since hitting her head. Hematologic/Lymphatic Hematologic/Lymphatic : Denies easy bleeding or easy bruising Allergic/Immunologic Allergic/Immunologic ED: Denies urticaria EXAM Physical Exam Const Vital Signs: 04/28/22 14:03 04/28/22 15:47 04/28/22 15:47 Temperature 97.6 F L Temperature Source Temporal Pulse Rate 85 Respiratory Rate 16 Respiratory Effort Normal Non-Labored Normal Non-Labored Respiratory Depth Normal Respiratory Pattern Normal Normal Blood Pressure 121/105 H Blood Pressure Mean 110 Pulse Ox 98 Oxygen Delivery Method Room Air Room Air Positive well nourished and well developed General Appearance ED: well developed HEENT HEENT Narrative: Abrasions to forehead. No facial swelling. No epistaxis. Eyes PERRL and EOMs intact bilaterally Neck full ROM General: Negative for tenderness Chest Wall inspection of chest normal Resp normal respiratory effort and clear to auscultation bilaterally Cardio regular rhythm GI normal to inspection, nondistended, normoactive bowel sounds Back/Spine Back/Spine Narrative: No cervical, thoracic or lumbar tenderness. Extremity Extremity Narrative: Patient has several abrasions. These are on both feet slightly on the left knee and the larger one on the right knee patellar area. There is also a contusion on the proximal left thenar eminence. She does have some mild right patellar tenderness. There is also some tenderness to the left wrist and snuffbox area. No deformities are noted. Knee shows no joint line tenderness. There is no effusion. No instability. Extensor me (more content not included)... Normal [facility] Knee 4 or More Viewson 04-28 Knee 4 or More Views [facility] Imaging Services [address] [place] [address] Knee 4 or More Views MR#: [id number] Acct: [id number] Name: ANASTASIA SIMPSON Rep #: [id number] : 1975 F 46 From: Marc Hastings PCP: Dr. Jacek Scruggs MD Status: DEP ER Study: Knee 4 or More Views Date of Exam: 04/28/22 Exam# [id number] Ordering Dr: Luis Kearney MD STUDY: X-RAY - RIGHT KNEE REASON FOR EXAM: Female, 46 years old. trauma TECHNIQUE: 4 view(s) of the knee. COMPARISON: Right knee 11/13/2021. FINDINGS: Normal visualized distal femur. Normal visualized proximal tibia and fibula. Normal proximal tibiofibular articulation. Normal medial femorotibial compartment. Normal lateral femorotibial compartment. Normal patellofemoral articulation. The soft tissue structures are unremarkable. RAD/Knee 4 or More Views IMPRESSION: Normal x-ray examination of the knee. Electronically Signed: Marc Florentino MD at 17:09 EDT , CC: Dr. Luis Kearney MD; Dr. Jacek Scruggs MD Tubing Tester: Signed Normal [facility] Wrist min 3 Viewson 04-28-20 Wrist min 3 Views [facility] Imaging Services [address] [place] [address] Wrist min 3 Views MR#: [id number] Acct: [id number] Name: ANASTASIA SIMPSON Rep #: [id number] : 1975 F 46 From: Sami carlson MD PCP: Dr. aJcek Scruggs MD Status: REG ER Study: Wrist min 3 Views Date of Exam: 04/28/22 Exam# [id number] Ordering Dr: Luis Kearney MD STUDY: X-RAY - LEFT WRIST REASON FOR EXAM: Female, 46 years old. Pain due to a fall. TECHNIQUE: 3 view(s) of the wrist were obtained. COMPARISON: None. FINDINGS: Normal visualized distal radius and ulna. Normal radiocarpal articulation. Normal distal radioulnar articulation. Normal carpal bones. Normal carpal articulations. Normal carpometacarpal articulation of the thumb. Normal second through fifth carpometacarpal articulations. Normal visualized metacarpal bones. The soft tissue structures are unremarkable. RAD/Wrist min 3 Views IMPRESSION: Normal x-ray examination of the wrist. Electronically Signed: Sami Gordon MD at 15:51 EDT , CC: Dr. Luis Kearney MD; Dr. Jacek Scruggs MD Tubing Tester: Signed Normal [facility] Culture, urine Bacteria identified Cx Nom (U) Escherichia coli [facility] Work Phone: Vital Signs Date Time Vital Sign Value Performing Clinician Facility 05-10-2025 15:26-0400 Body mass index (BMI) [Ratio] 21.37 kg/m2 Robyn Vegaer PA-C Work Phone: [facility] 05-10-2025 15:26-0400 Body weight 60.06 kg Robyn Vegaer PA-C Work Phone: [facility] 05-10-2025 15:26-0400 Diastolic blood pressure 90 mm[Hg] Robyn Vegaer PA-C Work Phone: [facility] 05-10-2025 15:26-0400 Heart rate 67 /min Robyn Vegaer PA-C Work Phone: [facility] 05-10-2025 15:26-0400 Respiratory rate 16 /min Robyn Vegaer PA-C Work Phone: [facility] 05-10-2025 15:26-0400 SaO2% (BldA) [Mass fraction] 98 % Robyn Vegaer PA-C Work Phone: [facility] 05-10-2025 15:26-0400 Systolic blood pressure 112 mm[Hg] Robyn Vegaer PA-C Work Phone: [facility] 03-20-2025 17:01-0400 Diastolic blood pressure 62 mm[Hg] Jacek Scruggs MD Work Phone: [facility] 03-20-2025 17:01-0400 Heart rate 88 /min Jacek Scruggs MD Work Phone: [facility] 03-20-2025 17:01-0400 Systolic blood pressure 102 mm[Hg] Jacek Scruggs MD Work Phone: [facility] 03-03-2025 08:45-0400 Diastolic blood pressure 87 mm[Hg] Sage Bryant MD Work Phone: [facility] 03-03-2025 08:45-0400 Heart rate 73 /min Sage Bryant MD Work Phone: [facility] 03-03-2025 08:45-0400 Respiratory rate 17 /min Sage Bryant MD Work Phone: [facility] 03-03-2025 08:45-0400 SaO2% (BldA) [Mass fraction] 100 % Sage Bryant MD Work Phone: [facility] 03-03-2025 08:45-0400 Systolic blood pressure 126 mm[Hg] Sage Bryant MD Work Phone: [facility] 03-03-2025 07:45-0400 Body temperature 97.7 [degF] Sage Bryant MD Work Phone: [facility] 01-25-2025 16:17-0400 Body mass index (BMI) [Ratio] 23.52 kg/m2 Malou Baez PA-C Work Phone: [facility] 01-25-2025 16:17-0400 Body temperature 97.81 [degF] Malou Baez PA-C Work Phone: [facility] 01-25-2025 16:17-0400 Body weight 66.1 kg Malou Baez PA-C Work Phone: [facility] 01-25-2025 16:17-0400 Diastolic blood pressure 89 mm[Hg] Malou Baez PA-C Work Phone: [facility] 01-25-2025 16:17-0400 Heart rate 99 /min Malou Baez PA-C Work Phone: [facility] 01-25-2025 16:17-0400 SaO2% (BldA) [Mass fraction] 99 % Malou Baez PA-C Work Phone: [facility] 01-25-2025 16:17-0400 Systolic blood pressure 114 mm[Hg] Malou Baez PA-C Work Phone: [facility] 01-23-2025 11:28-0400 Body height 167.6 cm Quin Mendez APRN.CNP Work Phone: [facility] 01-23-2025 11:28-0400 Body mass index (BMI) [Ratio] 23.73 kg/m2 Quin Cesar 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 Work Phone: [facility] 01-23-2025 11:28-0400 Body temperature 97.81 [degF] Quin Cesar 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 Work Phone: [facility] 01-23-2025 11:28-0400 Body weight 66.68 kg Quin Cesar 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 Work Phone: [facility] 01-23-2025 11:28-0400 Diastolic blood pressure 87 mm[Hg] Quin Cesar 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 Work Phone: [facility] 01-23-2025 11:28-0400 Heart rate 88 /min Quin Cesar 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 Work Phone: [facility] 01-23-2025 11:28-0400 Respiratory rate 16 /min Quin Cesar 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 Work Phone: [facility] 01-23-2025 11:28-0400 SaO2% (BldA) [Mass fraction] 97 % Quin Cesar 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 Work Phone: [facility] 01-23-2025 11:28-0400 Systolic blood pressure 124 mm[Hg] Quin Cesar 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 Work Phone: [facility] 01-16-2025 18:43-0400 Body mass index (BMI) [Ratio] 22.76 kg/m2 Jacek Scruggs MD Work Phone: [facility] 01-16-2025 18:43-0400 Body weight 63.96 kg Jacek Scruggs MD Work Phone: [facility] 01-16-2025 18:43-0400 Diastolic blood pressure 82 mm[Hg] Jacek Scruggs MD Work Phone: [facility] 01-16-2025 18:43-0400 Heart rate 81 /min Jacek Scruggs MD Work Phone: [facility] 01-16-2025 18:43-0400 SaO2% (BldA) [Mass fraction] 100 % Jacek Scruggs MD Work Phone: [facility] 01-16-2025 18:43-0400 Systolic blood pressure 120 mm[Hg] Jacek Scruggs MD Work Phone: [facility] 12-15-2024 11:46-0400 Body mass index (BMI) [Ratio] 23.27 kg/m2 Coby Suppan 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 Work Phone: [facility] 12-15-2024 11:46-0400 Body weight 65.41 kg Coby Suppan 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 Work Phone: [facility] 12-15-2024 11:46-0400 Diastolic blood pressure 70 mm[Hg] Coby Suppan 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 Work Phone: [facility] 12-15-2024 11:46-0400 Heart rate 77 /min Coby Suppan 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 Work Phone: [facility] 12-15-2024 11:46-0400 Respiratory rate 16 /min Coby Suppan 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 Work Phone: [facility] 12-15-2024 11:46-0400 SaO2% (BldA) [Mass fraction] 99 % Coby Suppan 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 Work Phone: [facility] 12-15-2024 11:46-0400 Systolic blood pressure 124 mm[Hg] Coby Suppan 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 Work Phone: [facility] 11-14-2024 17:51-0500 Diastolic blood pressure 88 mm[Hg] Jacek Scruggs MD Work Phone: [facility] 11-14-2024 17:51-0500 Heart rate 90 /min Jacek Scruggs MD Work Phone: [facility] 11-14-2024 17:51-0500 SaO2% (BldA) [Mass fraction] 100 % Jacek Scruggs MD Work Phone: [facility] 11-14-2024 17:51-0500 Systolic blood pressure 128 mm[Hg] Jacek Scruggs MD Work Phone: [facility] 10-21-2024 15:14-0500 Body mass index (BMI) [Ratio] 23.61 kg/m2 Robyn Queener PA-C Work Phone: [facility] 10-21-2024 15:14-0500 Body weight 66.35 kg Robyn Queener PA-C Work Phone: [facility] 10-21-2024 15:14-0500 Diastolic blood pressure 91 mm[Hg] Robyn Queener PA-C Work Phone: [facility] 10-21-2024 15:14-0500 Heart rate 63 /min Robyn Queener PA-C Work Phone: [facility] 10-21-2024 15:14-0500 Respiratory rate 16 /min Robyn Queener PA-C Work Phone: [facility] 10-21-2024 15:14-0500 SaO2% (BldA) [Mass fraction] 100 % Robyn Queener PA-C Work Phone: [facility] 10-21-2024 15:14-0500 Systolic blood pressure 129 mm[Hg] Robyn Queener PA-C Work Phone: [facility] 10-05-2024 15:53-0500 Diastolic blood pressure 95 mm[Hg] Robyn Queener PA-C Work Phone: [facility] 10-05-2024 15:53-0500 Heart rate 83 /min Robyn Queener PA-C Work Phone: [facility] 10-05-2024 15:53-0500 SaO2% (BldA) [Mass fraction] 99 % Robyn Queener PA-C Work Phone: [facility] 10-05-2024 15:53-0500 Systolic blood pressure 132 mm[Hg] Robyn Queener PA-C Work Phone: [facility] 09-19-2024 17:00-0500 Body mass index (BMI) [Ratio] 22.76 kg/m2 Jacek Scruggs MD Work Phone: [facility] 09-19-2024 17:00-0500 Body weight 63.96 kg Jacek Scruggs MD Work Phone: [facility] 09-19-2024 17:00-0500 Diastolic blood pressure 72 mm[Hg] Jacek Scruggs MD Work Phone: [facility] 09-19-2024 17:00-0500 Heart rate 72 /min Jacek Scruggs MD Work Phone: [facility] 09-19-2024 17:00-0500 SaO2% (BldA) [Mass fraction] 98 % Jacek Scruggs MD Work Phone: [facility] 09-19-2024 17:00-0500 Systolic blood pressure 124 mm[Hg] Jacek Scruggs MD Work Phone: [facility] 08-03-2024 07:20-0500 Body height 167.6 cm Judith Erick 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 Work Phone: [facility] 08-03-2024 07:20-0500 Body mass index (BMI) [Ratio] 22.76 kg/m2 Judith [place] 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 Work Phone: [facility] 08-03-2024 07:20-0500 Body weight 63.96 kg Judith [place] 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 Work Phone: [facility] 08-03-2024 07:20-0500 Diastolic blood pressure 60 mm[Hg] Judith [place] 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 Work Phone: [facility] 08-03-2024 07:20-0500 Systolic blood pressure 102 mm[Hg] Judith Erick 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 Work Phone: [facility] 07-28-2024 13:10-0500 Body mass index (BMI) [Ratio] 22.77 kg/m2 Dillon Kim 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 Work Phone: [facility] 07-28-2024 13:10-0500 Body temperature 97.7 [degF] Dillon Kim ANITA.SCHOOL TRANSPORTATION SUPERVISOR Work Phone: [facility] 07-28-2024 13:10-0500 Body weight 64 kg Dillon Kim ANITA.SCHOOL TRANSPORTATION SUPERVISOR Work Phone: [facility] 07-28-2024 13:10-0500 Diastolic blood pressure 96 mm[Hg] Dillon Kim ANITA.SCHOOL TRANSPORTATION SUPERVISOR Work Phone: [facility] 07-28-2024 13:10-0500 Heart rate 78 /min Dillon Kim ANITA.SCHOOL TRANSPORTATION SUPERVISOR Work Phone: [facility] 07-28-2024 13:10-0500 Respiratory rate 18 /min Dillon Kim ANITA.SCHOOL TRANSPORTATION SUPERVISOR Work Phone: [facility] 07-28-2024 13:10-0500 SaO2% (BldA) [Mass fraction] 100 % Dillon Kim ANITA.SCHOOL TRANSPORTATION SUPERVISOR Work Phone: [facility] 07-28-2024 13:10-0500 Systolic blood pressure 129 mm[Hg] Dillon Kim ANITA.SCHOOL TRANSPORTATION SUPERVISOR Work Phone: [facility] 07-12-2024 06:59-0400 Body mass index (BMI) [Ratio] 23.11 kg/m2 Robyn Vegaer PA-C Work Phone: [facility] 07-12-2024 06:59-0400 Body weight 64.95 kg Robyn Vegaer PA-C Work Phone: [facility] 07-12-2024 06:59-0400 Diastolic blood pressure 82 mm[Hg] Robyn Vegaer PA-C Work Phone: [facility] 07-12-2024 06:59-0400 Heart rate 77 /min Roybn Vegaer PA-C Work Phone: [facility] 07-12-2024 06:59-0400 Respiratory rate 16 /min Robyn Vegaer PA-C Work Phone: [facility] 07-12-2024 06:59-0400 SaO2% (BldA) [Mass fraction] 98 % Robyn LOW-C Work Phone: [facility] 07-12-2024 06:59-0400 Systolic blood pressure 120 mm[Hg] Robyn LOW-C Work Phone: [facility] 07-04-2024 15:22-0400 Body height 167.6 cm Jacek Scruggs MD Work Phone: [facility] 07-04-2024 15:22-0400 Body mass index (BMI) [Ratio] 22.85 kg/m2 Jacek Scruggs MD Work Phone: [facility] 07-04-2024 15:22-0400 Body weight 64.23 kg Jacek Scruggs MD Work Phone: [facility] 07-04-2024 15:22-0400 Diastolic blood pressure 78 mm[Hg] Jacek Scruggs MD Work Phone: [facility] 07-04-2024 15:22-0400 Heart rate 83 /min Jacek Scruggs MD Work Phone: [facility] 07-04-2024 15:22-0400 SaO2% (BldA) [Mass fraction] 99 % Jacek Scruggs MD Work Phone: [facility] 07-04-2024 15:22-0400 Systolic blood pressure 116 mm[Hg] Jacek Scruggs MD Work Phone: [facility] 05-02-2024 18:05-0400 Diastolic blood pressure 62 mm[Hg] Jacek Scruggs MD Work Phone: [facility] 05-02-2024 18:05-0400 Heart rate 79 /min Jacek Scruggs MD Work Phone: [facility] 05-02-2024 18:05-0400 SaO2% (BldA) [Mass fraction] 98 % Jacek Scruggs MD Work Phone: [facility] 05-02-2024 18:05-0400 Systolic blood pressure 110 mm[Hg] Jacek Scruggs MD Work Phone: [facility] 03-07-2024 10:58-0400 Diastolic blood pressure 82 mm[Hg] Madelaine Tomlinson APRN.SCHOOL TRANSPORTATION SUPERVISOR Work Phone: [facility] 03-07-2024 10:58-0400 Heart rate 73 /min Madelaine Tomlinson APRN.SCHOOL TRANSPORTATION SUPERVISOR Work Phone: [facility] 03-07-2024 10:58-0400 Respiratory rate 16 /min Madelaine Tomlinson 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 Work Phone: [facility] 03-07-2024 10:58-0400 SaO2% (BldA) [Mass fraction] 92 % Madelaine Tomlinson APRN.SCHOOL TRANSPORTATION SUPERVISOR Work Phone: [facility] 03-07-2024 10:58-0400 Systolic blood pressure 110 mm[Hg] Madelaine Tomlinson APRN.SCHOOL TRANSPORTATION SUPERVISOR Work Phone: [facility] 03-05-2024 08:33-0400 Body mass index (BMI) [Ratio] 22.17 kg/m2 Shantal Vaughan APRN.SCHOOL TRANSPORTATION SUPERVISOR Work Phone: [facility] 03-05-2024 08:33-0400 Body temperature 97.81 [degF] Shantal Vaughan APRN.SCHOOL TRANSPORTATION SUPERVISOR Work Phone: [facility] 03-05-2024 08:33-0400 Body weight 62.3 kg Shantal Vaughan APRN.SCHOOL TRANSPORTATION SUPERVISOR Work Phone: [facility] 03-05-2024 08:33-0400 Diastolic blood pressure 78 mm[Hg] Shantal Vaughan APRN.SCHOOL TRANSPORTATION SUPERVISOR Work Phone: [facility] 03-05-2024 08:33-0400 Heart rate 82 /min Shantal Vaughan APRN.SCHOOL TRANSPORTATION SUPERVISOR Work Phone: [facility] 03-05-2024 08:33-0400 Respiratory rate 20 /min Shantal Vaughan APRN.SCHOOL TRANSPORTATION SUPERVISOR Work Phone: [facility] 03-05-2024 08:33-0400 SaO2% (BldA) [Mass fraction] 99 % Shantal Vaughan APRN.SCHOOL TRANSPORTATION SUPERVISOR Work Phone: [facility] 03-05-2024 08:33-0400 Systolic blood pressure 108 mm[Hg] Shantal Vaughan APRN.CNP Work Phone: [facility] 03-01-2024 13:31-0400 Body height 167.6 cm Jacek Scruggs MD Work Phone: [facility] 03-01-2024 13:31-0400 Body mass index (BMI) [Ratio] 21.79 kg/m2 Jacek Scruggs MD Work Phone: [facility] 03-01-2024 13:31-0400 Body weight 61.24 kg Jacek Scruggs MD Work Phone: [facility] 03-01-2024 13:31-0400 Diastolic blood pressure 68 mm[Hg] Jacek Scruggs MD Work Phone: [facility] 03-01-2024 13:31-0400 Heart rate 73 /min Jacek Scruggs MD Work Phone: [facility] 03-01-2024 13:31-0400 SaO2% (BldA) [Mass fraction] 94 % Jacek Scruggs MD Work Phone: [facility] 03-01-2024 13:31-0400 Systolic blood pressure 94 mm[Hg] Jacek Scruggs MD Work Phone: [facility] 12-28-2023 17:39-0400 Diastolic blood pressure 80 mm[Hg] Jacek Scruggs MD Work Phone: [facility] 12-28-2023 17:39-0400 Systolic blood pressure 130 mm[Hg] Jacek Scruggs MD Work Phone: [facility] 12-28-2023 17:07-0400 Heart rate 77 /min Jacek Scruggs MD Work Phone: [facility] 12-28-2023 17:07-0400 SaO2% (BldA) [Mass fraction] 99 % Jacek Scruggs MD Work Phone: [facility] 10-26-2023 18:22-0500 Diastolic blood pressure 82 mm[Hg] Jacek Scruggs MD Work Phone: [facility] 10-26-2023 18:22-0500 Heart rate 80 /min Jacek Scruggs MD Work Phone: [facility] 10-26-2023 18:22-0500 SaO2% (BldA) [Mass fraction] 99 % Jacek Scruggs MD Work Phone: [facility] 10-26-2023 18:22-0500 Systolic blood pressure 122 mm[Hg] Jacek Scruggs MD Work Phone: [facility] 08-03-2023 18:42-0500 Diastolic blood pressure 86 mm[Hg] Jacek Scruggs MD Work Phone: [facility] 08-03-2023 18:42-0500 Systolic blood pressure 134 mm[Hg] Jacek Scruggs MD Work Phone: [facility] 08-03-2023 17:58-0500 Heart rate 93 /min Jacek Scruggs MD Work Phone: [facility] 08-03-2023 17:58-0500 SaO2% (BldA) [Mass fraction] 98 % Jacek Scruggs MD Work Phone: [facility] 07-25-2023 08:22-0400 Body temperature 98.71 [degF] Rhea Older 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 Work Phone: [facility] 07-25-2023 08:22-0400 Body weight 59.88 kg Rhea Older 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 Work Phone: [facility] 07-25-2023 08:22-0400 Diastolic blood pressure 101 mm[Hg] Rhea Older 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 Work Phone: [facility] 07-25-2023 08:22-0400 Heart rate 102 /min Rhea Older 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 Work Phone: [facility] 07-25-2023 08:22-0400 Respiratory rate 18 /min Rhea Older 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 Work Phone: [facility] 07-25-2023 08:22-0400 SaO2% (BldA) [Mass fraction] 100 % Rhea Older 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 Work Phone: [facility] 07-25-2023 08:22-0400 Systolic blood pressure 139 mm[Hg] Rhea Older 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 Work Phone: [facility] 06-01-2023 17:53-0400 Diastolic blood pressure 78 mm[Hg] Jacek Scruggs MD Work Phone: [facility] 06-01-2023 17:53-0400 Heart rate 68 /min Jacek Scruggs MD Work Phone: [facility] 06-01-2023 17:53-0400 Systolic blood pressure 112 mm[Hg] Jacek Scruggs MD Work Phone: [facility] 03-25-2023 11:31-0400 Body height 167.6 cm Jacek Scruggs MD Work Phone: [facility] 03-25-2023 11:31-0400 Body weight 57.15 kg Jacek Scruggs MD Work Phone: [facility] 03-25-2023 11:31-0400 SaO2% (BldA) [Mass fraction] 98 % Jacek Scruggs MD Work Phone: [facility] 01-12-2023 17:57-0400 Diastolic blood pressure 58 mm[Hg] Jacek Scruggs MD Work Phone: [facility] 01-12-2023 17:57-0400 Heart rate 83 /min Jacek Scruggs MD Work Phone: [facility] 01-12-2023 17:57-0400 Respiratory rate 16 /min Jacek Scruggs MD Work Phone: [facility] 01-12-2023 17:57-0400 SaO2% (BldA) [Mass fraction] 97 % Jacek Scruggs MD Work Phone: [facility] 01-12-2023 17:57-0400 Systolic blood pressure 100 mm[Hg] Jacek Scruggs MD Work Phone: [facility] 11-13-2022 08:05-0500 Diastolic blood pressure 82 mm[Hg] Jacek Scruggs MD Work Phone: [facility] 11-13-2022 08:05-0500 Heart rate 80 /min Jacek Scruggs MD Work Phone: [facility] 11-13-2022 08:05-0500 Systolic blood pressure 136 mm[Hg] Jacek Scruggs MD Work Phone: [facility] 10-26-2022 15:19-0500 Body height 167.[address] Jacek Scruggs Work Phone: [facility] 10-26-2022 15:19-0500 Body mass index (BMI) [Ratio] 20.1 kg/m2 Dr. Jacek Scruggs Work Phone: 1(025)595-271182 [place] [address] 10-26-2022 15:19-0500 Body temperature 97.2 [degF] Dr. Jacek Scruggs Work Phone: 6(556)918-699782 [place] [address] 10-26-2022 15:19-0500 Body weight 56.[address] Jacek Scruggs Work Phone: 9(841)145-118982 [place] [address] 10-26-2022 15:19-0500 Diastolic blood pressure 97 mm[Hg] Dr. Jacek Scruggs Work Phone: 4(189)909-166482 [place] [address] 10-26-2022 15:19-0500 Heart rate 77 /min Dr. Jacek Scruggs Work Phone: 2(751)159-374382 [place] [address] 10-26-2022 15:19-0500 Respiratory rate 16 /min Dr. Jacek Scruggs Work Phone: [facility] 10-26-2022 15:19-0500 SaO2% (BldA) [Mass fraction] 99 % Dr. Jacek Scruggs Work Phone: [facility] 10-26-2022 15:19-0500 Systolic blood pressure 136 mm[Hg] Dr. Jacek Scruggs Work Phone: [facility] 10-14-2022 16:33-0500 Body height 167.6 cm Jacek Scruggs MD Work Phone: [facility] 10-14-2022 16:33-0500 Body weight 57.15 kg Jacek Scruggs MD Work Phone: [facility] 10-14-2022 16:33-0500 Diastolic blood pressure 100 mm[Hg] Jacek Scruggs MD Work Phone: [facility] 10-14-2022 16:33-0500 Heart rate 79 /min Jacek Scruggs MD Work Phone: [facility] 10-14-2022 16:33-0500 SaO2% (BldA) [Mass fraction] 98 % Jacek Scruggs MD Work Phone: [facility] 10-14-2022 16:33-0500 Systolic blood pressure 134 mm[Hg] Jacek Scruggs MD Work Phone: [facility] 09-24-2022 13:52-0500 Body height 167.[address] Jacek Scruggs Work Phone: [facility] 09-24-2022 13:52-0500 Diastolic blood pressure 100 mm[Hg] Dr. Jacek Scruggs Work Phone: [facility] 09-24-2022 13:52-0500 Heart rate 88 /min Dr. Jacek Scruggs Work Phone: 3(900)902-496515 [place] [address] 09-24-2022 13:52-0500 Systolic blood pressure 140 mm[Hg] Dr. Jacek Scruggs Work Phone: [facility] 08-04-2022 07:22-0500 Body temperature 97.9 [degF] Dr. Jacek Scruggs Work Phone: [facility] 08-04-2022 07:22-0500 Diastolic blood pressure 68 mm[Hg] Dr. Jacek Scruggs Work Phone: 7(380)273-819115 [place] [address] 08-04-2022 07:22-0500 Heart rate 95 /min Dr. Jacek Scruggs Work Phone: [facility] 08-04-2022 07:22-0500 Respiratory rate 14 /min Dr. Jacek Scruggs Work Phone: [facility] 08-04-2022 07:22-0500 SaO2% (BldA) [Mass fraction] 99 % Dr. Jacek Scruggs Work Phone: [facility] 08-04-2022 07:22-0500 Systolic blood pressure 108 mm[Hg] Dr. Jacek Scruggs Work Phone: [facility] 07-04-2022 15:12-0400 Diastolic blood pressure 80 mm[Hg] Jacek Scruggs MD Work Phone: [facility] 07-04-2022 15:12-0400 Heart rate 96 /min Jacek Scruggs MD Work Phone: [facility] 07-04-2022 15:12-0400 SaO2% (BldA) [Mass fraction] 98 % Jacek Scruggs MD Work Phone: [facility] 07-04-2022 15:12-0400 Systolic blood pressure 110 mm[Hg] Jacek Scruggs MD Work Phone: [facility] 05-19-2022 14:40-0400 Body temperature 97.81 [degF] NA Pfeiffer PA-C Work Phone: [facility] 05-19-2022 14:40-0400 Body weight 57.15 kg NA Pfeiffer PA-C Work Phone: [facility] 05-19-2022 14:40-0400 Diastolic blood pressure 68 mm[Hg] NA Pfeiffer PA-C Work Phone: [facility] 05-19-2022 14:40-0400 Heart rate 70 /min NA Pfeiffer PA-C Work Phone: [facility] 05-19-2022 14:40-0400 Respiratory rate 14 /min NA Pfeiffer PA-C Work Phone: [facility] 05-19-2022 14:40-0400 SaO2% (BldA) [Mass fraction] 98 % NA Pfeiffer PA-C Work Phone: [facility] 05-19-2022 14:40-0400 Systolic blood pressure 110 mm[Hg] NA Pfeiffer PA-C Work Phone: [facility] 04-28-2022 16:39-0400 Heart rate 71 /min Dr. Jacek Scruggs Work Phone: [facility] Work Phone: 04-28-2022 16:39-0400 Respiratory rate 16 /min Dr. Jacek Scruggs Work Phone: [facility] Work Phone: 04-28-2022 16:39-0400 SaO2% (BldA) [Mass fraction] 100 % Dr. Jacek Scruggs Work Phone: [facility] Work Phone: 04-28-2022 14:03-0400 Body height 167.[address] Jacek Scruggs Work Phone: [facility] Work Phone: 04-28-2022 14:03-0400 Body mass index (BMI) [Ratio] 19.3 kg/m2 Dr. Jacek Scruggs Work Phone: [facility] Work Phone: 04-28-2022 14:03-0400 Body temperature 97.6 [degF] Dr. Jacek Scruggs Work Phone: [facility] Work Phone: 04-28-2022 14:03-0400 Body weight 54.[address] Jacek Scruggs Work Phone: [facility] Work Phone: 04-28-2022 14:03-0400 Diastolic blood pressure 105 mm[Hg] Dr. Jacek Scruggs Work Phone: [facility] Work Phone: 04-28-2022 14:03-0400 Systolic blood pressure 121 mm[Hg] Dr. Jacek Scruggs Work Phone: [facility] Work Phone: 03-03-2022 08:05-0400 Body weight 55.34 kg Jacek Scruggs MD Work Phone: [facility] 03-03-2022 08:05-0400 Diastolic blood pressure 62 mm[Hg] Jacek Scruggs MD Work Phone: [facility] 03-03-2022 08:05-0400 Heart rate 76 /min Jacek Scruggs MD Work Phone: [facility] 03-03-2022 08:05-0400 Systolic blood pressure 92 mm[Hg] Jacek Scruggs MD Work Phone: [facility] 01-01-2022 16:02-0400 Body weight 55.79 kg Jacek Scruggs MD Work Phone: [facility] 01-01-2022 16:02-0400 Diastolic blood pressure 84 mm[Hg] Jacek Scruggs MD Work Phone: [facility] 01-01-2022 16:02-0400 Heart rate 88 /min Jacek Scruggs MD Work Phone: [facility] 01-01-2022 16:02-0400 Systolic blood pressure 122 mm[Hg] Jacek Scruggs MD Work Phone: [facility] 01-01-2022 07:27-0400 Body temperature 98.4 [degF] Dr. Jacek Scruggs Work Phone: [facility] Work Phone: 01-01-2022 07:27-0400 Diastolic blood pressure 62 mm[Hg] Dr. Jacek Scruggs Work Phone: [facility] Work Phone: 01-01-2022 07:27-0400 Heart rate 101 /min Dr. Jacek Scruggs Work Phone: [facility] Work Phone: 01-01-2022 07:27-0400 Respiratory rate 14 /min Dr. Jacek Scruggs Work Phone: [facility] Work Phone: 01-01-2022 07:27-0400 SaO2% (BldA) [Mass fraction] 99 % Dr. Jacek Scruggs Work Phone: [facility] Work Phone: 01-01-2022 07:27-0400 Systolic blood pressure 108 mm[Hg] Dr. Jacek Scruggs Work Phone: [facility] Work Phone: Encounters Encounter Date Encounter Type Care Provider Facility Start: 05-10-2025 End: 05-10-2025 Patient encounter procedure Robyn Harris PA-C Work Phone: Neurology Comment on above: Intractable chronic migraine with aura and without status migrainosus (Primary Dx) Start: 05-10-2025 End: 05-10-2025 ambulatory JACEK SCRUGGS Facility:[facility] Start: 05-03-2025 End: 05-03-2025 Refill Jacek Scruggs MD Work Phone: [facility] Comment on above: Refill Request Start: 04-19-2025 End: 04-19-2025 Telephone encounter Robyn Harris PA-C Work Phone: [facility] HB-3 Comment on above: Insurance Authorizat ion (Pharmacy Approval - [id number] Botox ) Start: 04-07-2025 End: 04-10-2025 Telephone encounter Robyn Harris PA-C Work Phone: Neurology Comment on above: Prior Authorization Start: 04-04-2025 End: 04-04-2025 Refill Jacek Scruggs MD Work Phone: [facility] Comment on above: Refill Request Start: 03-20-2025 End: 03-20-2025 Patient encounter procedure Jacek Scruggs MD Work Phone: [facility] Comment on above: Other migraine witho ut status migrainosus, not intractable (Primary Dx); Primary hypertension; Basal cell carcinoma (BCC), unspecified site; Postlaminectomy syndrome; Gastro-esophageal reflux disease without esophagitis Start: 03-20-2025 End: 03-20-2025 ambulatory JACEK SCRUGGS Facility:[facility] Start: 03-17-2025 End: 03-17-2025 Telephone encounter Robyn Harris PA-C Work Phone: Neurology Comment on above: Insurance Authorizat ion Start: 03-08-2025 End: 03-08-2025 Refill Jacek Scruggs MD Work Phone: [facility] Comment on above: Refill Request Start: 03-03-2025 End: 05-03-2025 Follow-up encounter Quin Mendez APRN.SCHOOL TRANSPORTATION SUPERVISOR Work Phone: General Surgery Start: 03-03-2025 End: 03-03-2025 Emergency department patient visit JACEK SCRUGGS Facility:[facility] Start: 03-03-2025 ambulatory GYPSY Christiano [facility] Facility:[facility] Start: 03-03-2025 End: 03-03-2025 Subsequent hospital visit by physician Sage Bryant MD Work Phone: [facility] End[facility] Comment on above: History of colonic p olyps [Z86.0100] Start: 03-01-2025 End: 03-02-2025 Refill Coby Sotelo APRN.SCHOOL TRANSPORTATION SUPERVISOR Work Phone: [facility] Comment on above: Refill Request Start: 02-15-2025 End: 02-15-2025 Refill Jacek Scruggs MD Work Phone: [facility] Comment on above: Refill Request Medication Problem; clarify directions on rx Start: 01-25-2025 End: 01-25-2025 Patient encounter procedure Malou Baez PA-C Work Phone: Neurology Comment on above: Intractable chronic migraine with aura and without status migrainosus (Primary Dx) Start: 01-25-2025 End: 01-25-2025 ambulatory [facility] Facility:[facility] Start: 01-23-2025 End: 01-23-2025 Patient encounter procedure Quin Mendez APRN.SCHOOL TRANSPORTATION SUPERVISOR Work Phone: General Surgery Comment on above: Screen for colon can cer (Primary Dx); History of colonic polyps Start: 01-23-2025 End: 01-23-2025 ambulatory [facility] Facility:[facility] Start: 01-16-2025 End: 01-16-2025 Patient encounter procedure Jacek Scruggs MD Work Phone: [facility] [place] Comment on above: Primary hypertension (Primary Dx); History of colonic polyps; Other migraine without status migrainosus, not intractable; Basal cell carcinoma (BCC), unspecified site; Anxiety; Adjustment disorder with anxious mood Start: 01-16-2025 End: 01-16-2025 ambulatory JACEK SCRUGGS Facility:[facility] Start: 12-22-2024 End: 12-23-2024 Refill Jacek Scruggs MD Work Phone: [facility] [place] Comment on above: Refill Request Start: 12-15-2024 End: 12-15-2024 ambulatory COBY A SUPPAN Facility:[facility] Start: 12-15-2024 End: 12-15-2024 Office outpatient visit 15 minutes Coby Sotelo 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 Work Phone: [facility] Comment on above: Migraine with aura, not intractable, without status migrainosus (Primary Dx) Start: 12-12-2024 End: 12-12-2024 Refill Jacek Scruggs MD Work Phone: [facility] Comment on above: Refill Request Start: 11-28-2024 End: 11-28-2024 ambulatory Jacek Scruggs MD Work Phone: [facility] Comment on above: Fungal Treatment Start: 11-14-2024 End: 11-14-2024 Patient encounter procedure Jacek Scruggs MD Work Phone: [facility] [place] Comment on above: Primary hypertension (Primary Dx); Basal cell carcinoma (BCC), unspecified site; Other migraine without status migrainosus, not intractable; Postlaminectomy syndrome; Acute left-sided thoracic back pain; Anxiety; DDD (degenerative disc disease), lumbar; Degeneration of intervertebral disc of lumbar region, unspecified whether pain present Start: 11-14-2024 End: 11-14-2024 ambulatory JACEK SCRUGGS Facility:[facility] Start: 10-21-2024 End: 10-21-2024 ambulatory Jacek Scruggs MD Work Phone: Family Medicine [place] Start: 10-21-2024 End: 10-21-2024 Patient encounter procedure Robyn Harris PA-C Work Phone: Neurology Comment on above: Intractable chronic migraine with aura and without status migrainosus (Primary Dx) Rx refill Start: 10-20-2024 End: 10-21-2024 Refill Jacek Scruggs MD Work Phone: [facility] Comment on above: Refill Request Start: 10-13-2024 End: 10-13-2024 Telephone encounter Robyn Harris PA-C Work Phone: Neurology Start: 10-12-2024 End: 10-13-2024 Telephone encounter Robyn Harris PA-C Work Phone: Neurology Comment on above: botox PA Start: 10-06-2024 End: 10-06-2024 Refill Jacek Scruggs MD Work Phone: [facility] Comment on above: Refill Request Start: 10-05-2024 End: 10-05-2024 Patient encounter procedure Robyn Harris PA-C Work Phone: Neurology Comment on above: Intractable chronic migraine with aura and without status migrainosus (Primary Dx) Start: 10-05-2024 End: 10-05-2024 ambulatory ROBYN HARRIS Facility:[facility] Start: 09-28-2024 End: 09-28-2024 Refill Jacek Scruggs MD Work Phone: [facility] Comment on above: Refill Request Start: 09-26-2024 End: 09-26-2024 Refill Jacek Scruggs MD Work Phone: [facility] [place] Comment on above: Refill Request Start: 09-19-2024 End: 09-19-2024 Patient encounter procedure Jacek Scruggs MD Work Phone: [facility] Comment on above: Other migraine witho ut status migrainosus, not intractable (Primary Dx); Primary hypertension; Postlaminectomy syndrome; Basal cell carcinoma (BCC), unspecified site; Anxiety Start: 09-19-2024 End: 09-19-2024 ambulatory JACEK SCRUGGS Facility:[facility] Start: 09-08-2024 End: 09-09-2024 Telephone encounter Robyn Harris PA-C Work Phone: Neurology Comment on above: Prior Auth: Qulipta Patient Request Start: 09-02-2024 End: 09-02-2024 ambulatory Robyn Harris PA-C Work Phone: Neurology Comment on above: Intractable chronic migraine with aura and without status migrainosus (Primary Dx) Start: 09-02-2024 End: 09-02-2024 Telemedicine consultation with patient Robyn Harris PA-C Work Phone: Neurology Start: 08-31-2024 End: 08-31-2024 Refill Jacek Scruggs MD Work Phone: [facility] [place] Comment on above: Refill Request Start: 08-30-2024 End: 08-30-2024 ambulatory JACEK SCRUGGS Facility:[facility] Start: 08-30-2024 End: 08-30-2024 Subsequent hospital visit by physician Screen Mammo [facility] Start: 08-29-2024 End: 08-31-2024 Telephone encounter Robyn Harris MARANDANolan Work Phone: Neurology Comment on above: Insurance Authorizat ion ([employer] ) Insurance Authorizat ion Start: 08-24-2024 End: 08-24-2024 Refill Jacek Scruggs MD Work Phone: [facility] [place] Comment on above: Refill Request Start: 08-16-2024 End: 08-16-2024 Refill Jacek Scruggs MD Work Phone: [facility] [place] Comment on above: Refill Request Start: 08-08-2024 End: 08-10-2024 Telephone encounter Robyn Harris MARANDANolan Work Phone: Neurology Comment on above: Medication Question Start: 08-03-2024 End: 08-03-2024 ambulatory JACEK PACEO Facility:[facility] Start: 08-03-2024 End: 08-04-2024 Patient encounter procedure Judith Newman APRN.SCHOOL TRANSPORTATION SUPERVISOR Work Phone: OB/Gynecology Comment on above: Encounter for gyneco logical examination (general) (routine) without abnormal findings (Primary Dx); Screening for cervical cancer; Encounter for screening for human papillomavirus (HPV); Encounter for screening mammogram for breast cancer Refill Request Start: 08-03-2024 End: 08-03-2024 Patient encounter status Judith Newman APRN.SCHOOL TRANSPORTATION SUPERVISOR Work Phone: [facility] Start: 07-29-2024 End: 07-31-2024 Telephone encounter Dillon James ANITA.SCHOOL TRANSPORTATION SUPERVISOR Work Phone: [facility] Comment on above: Results Start: 07-28-2024 End: 07-28-2024 Subsequent hospital visit by physician [facility] Work Phone: Radiology Comment on above: Pain [R52] Start: 07-28-2024 End: 07-28-2024 ambulatory JACEK SCRUGGS Facility:[facility] Start: 07-28-2024 End: 07-28-2024 Patient encounter procedure Dillon Kim APRN.SCHOOL TRANSPORTATION SUPERVISOR Work Phone: [facility] Comment on above: Pain (Primary Dx); Nausea Start: 07-25-2024 End: 07-25-2024 Refill Jacek Scruggs MD Work Phone: [facility] Comment on above: Refill Request Start: 07-14-2024 End: 07-18-2024 Telephone encounter Robyn Harris PA-C Work Phone: Neurology Comment on above: Medication Problem Start: 07-13-2024 End: 07-13-2024 Telephone encounter Robyn Harris PA-C Work Phone: Neurology Comment on above: Insurance Authorizat ion Start: 07-12-2024 End: 07-12-2024 Telephone encounter Jacek Scruggs MD Work Phone: [facility] Comment on above: Results (XRay) Start: 07-12-2024 End: 07-12-2024 Patient encounter procedure Robyn Harris PA-C Work Phone: Neurology Comment on above: Intractable chronic migraine with aura and without status migrainosus (Primary Dx) Start: 07-12-2024 End: 07-12-2024 ambulatory JACEK SCRUGGS Facility:[facility] Start: 07-06-2024 End: 07-07-2024 Telephone encounter Jacek Scruggs MD Work Phone: [facility] [place] Comment on above: Medication Problem ( superintendent renting managing date of Hydrocodone) Start: 07-04-2024 End: 07-04-2024 Subsequent hospital visit by physician Ruddy [facility] Work Phone: Radiology Comment on above: Pain of right lower extremity [M79.604] Start: 07-04-2024 End: 07-04-2024 Patient encounter procedure Jacek Scruggs MD Work Phone: [facility] Comment on above: Pain of right lower extremity (Primary Dx); Other migraine without status migrainosus, not intractable; DDD (degenerative disc disease), lumbar; Postlaminectomy syndrome; Anxiety; Degeneration of intervertebral disc of lumbar region, unspecified whether pain present Start: 07-04-2024 End: 07-04-2024 ambulatory JACEK SCRUGGS Facility:[facility] Start: 06-09-2024 End: 06-09-2024 Refill Jacek Scruggs MD Work Phone: [facility] Comment on above: Refill Request Start: 05-26-2024 End: 05-26-2024 ambulatory JACEK SCRUGGS Facility:[facility] Start: 05-09-2024 End: 05-09-2024 Refill Jacek Scruggs MD Work Phone: [facility] Comment on above: Refill Request Start: 05-02-2024 End: 05-02-2024 Patient encounter procedure Jacek Scruggs MD Work Phone: [facility] Comment on above: Other migraine witho ut status migrainosus, not intractable (Primary Dx); Screening for depression; Basal cell carcinoma (BCC), unspecified site; Postlaminectomy syndrome; Anxiety; Medication monitoring encounter; Mixed hyperlipidemia; Weight gain; Screening breast examination; DDD (degenerative disc disease), lumbar Start: 04-12-2024 Refill Jacek Scruggs MD Work Phone: [facility] Comment on above: Refill Request Start: 04-06-2024 Telephone encounter Madelaine pardo APRN.SCHOOL TRANSPORTATION SUPERVISOR Work Phone: [facility] [place] Comment on above: Results Start: 03-30-2024 End: 03-30-2024 Subsequent [facility] Work Phone: Radiology Comment on above: Ovarian cyst, left [ N83.202] Start: 03-21-2024 Refill Jacek Scruggs MD Work Phone: [facility] [place] Comment on above: Refill Request Start: 03-16-2024 Refill Jacek Scruggs MD Work Phone: [facility] [place] Comment on above: Refill Request Start: 03-11-2024 Telephone encounter Madelaine pardo APRN.SCHOOL TRANSPORTATION SUPERVISOR Work Phone: [facility] [place] Comment on above: Results Start: 03-09-2024 Telephone encounter Jacek Scruggs MD Work Phone: [facility] [place] Comment on above: Results Start: 03-08-2024 Telephone encounter Madelaine pardo APRN.SCHOOL TRANSPORTATION SUPERVISOR Work Phone: [facility] Comment on above: Results Start: 03-07-2024 Telephone encounter Tanja Hardin APRN.SCHOOL TRANSPORTATION SUPERVISOR Work Phone: [facility] Comment on above: Results Start: 03-07-2024 End: 03-07-2024 Subsequent hospital visit by physician [facility] Comment on above: Generalized abdomina l pain [R10.84] Start: 03-07-2024 End: 03-07-2024 Office outpatient visit 25 minutes Madelaine Tomlinson APRN.SCHOOL TRANSPORTATION SUPERVISOR Work Phone: [facility] Comment on above: Generalized abdomina l pain (Primary Dx); Hematuria, unspecified type; Dysuria; Nausea Start: 03-05-2024 End: 03-05-2024 Patient encounter procedure Shantal Vaughan APRN.CNP [facility] Comment on above: Urinary frequency (P rimary Dx) Start: 03-01-2024 End: 03-01-2024 Patient encounter procedure Jacek Scruggs MD Work Phone: [facility] [place] Comment on above: Gastroesophageal ref lux disease without esophagitis (Primary Dx); Basal cell carcinoma (BCC), unspecified site; Postlaminectomy syndrome; Other migraine without status migrainosus, not intractable; Medication monitoring encounter Start: 02-17-2024 Refill Jacek Scruggs MD Work Phone: [facility] [place] Comment on above: Refill Request Start: 02-01-2024 Telephone encounter Jacek Scruggs MD Work Phone: [facility] [place] Comment on above: Medication Request Start: 01-18-2024 Refill Jacek Scruggs MD Work Phone: [facility] Comment on above: Refill Request Start: 12-28-2023 End: 12-28-2023 Patient encounter procedure Jacek Scruggs MD Work Phone: [facility] [place] Comment on above: Postlaminectomy synd mack (Primary Dx); Basal cell carcinoma (BCC), unspecified site; Anxiety; Other migraine without status migrainosus, not intractable Start: 12-21-2023 Refill Jacek Scruggs MD Work Phone: [facility] Comment on above: Refill Request Start: 12-07-2023 Refill Jacek Scruggs MD Work Phone: [facility] Comment on above: Refill Request Start: 11-23-2023 Refill Jacek Scruggs MD Work Phone: [facility] [place] Comment on above: Refill Request Start: 10-26-2023 End: 10-26-2023 Patient encounter procedure Jacek Scruggs MD Work Phone: [facility] Comment on above: Other migraine witho ut status migrainosus, not intractable (Primary Dx); DDD (degenerative disc disease), lumbar; Basal cell carcinoma (BCC), unspecified site; Postlaminectomy syndrome; Anxiety Start: 08-31-2023 Refill Jacek Scruggs MD Work Phone: [facility] Comment on above: Refill Request Start: 08-24-2023 End: 08-24-2023 ambulatory Anastasia Moy JEFE Patten [facility] Physical Therapy Comment on above: Neck pain (Primary D x); Radicular pain in left arm; Acute left-sided thoracic back pain Start: 08-17-2023 Telephone encounter Jacek Scruggs MD Work Phone: [facility] Comment on above: Results Start: 08-12-2023 End: 08-12-2023 Subsequent hospital visit by physician Screen Mammo [facility] Comment on above: Screening breast exa mination [Z12.39] Start: 08-05-2023 Telephone encounter Jacek Scruggs MD Work Phone: [facility] Comment on above: Results Start: 08-03-2023 End: 08-03-2023 Subsequent hospital visit by physician Xr [facility] [place] Work Phone: Radiology Comment on above: Acute left-sided tho racic back pain [M54.6] Start: 08-03-2023 End: 08-03-2023 Patient encounter procedure Jacek Scruggs MD Work Phone: [facility] Comment on above: Neck pain (Primary D x); DDD (degenerative disc disease), lumbar; Radicular pain in left arm; Acute left-sided thoracic back pain; Screening breast examination Start: 07-25-2023 End: 07-25-2023 Subsequent hospital visit by physician Xr [facility] Work Phone: Radiology Comment on above: Acute neck pain [M54 .2] Start: 07-25-2023 End: 07-25-2023 Patient encounter procedure Rhea Ayala APRN.CNP Work Phone: [place] [facility] Comment on above: Acute neck pain (Marga grant Dx); Pain of left scapula Start: 07-09-2023 ambulatory Jenny Finn MD Work Phone: Neurosurgery Comment on above: Left arm pain (Prima ry Dx) Start: 07-09-2023 Telemedicine consult ation with patient Jenny Finn MD Work Phone: [facility] Start: 07-06-2023 Refill Jacek Scruggs MD Work Phone: [facility] [place] Comment on above: Refill Request Start: 06-01-2023 End: 06-01-2023 Patient encounter procedure Jacek Scruggs MD Work Phone: [facility] [place] Comment on above: Other migraine witho ut status migrainosus, not intractable (Primary Dx); Basal cell carcinoma (BCC), unspecified site; Postlaminectomy syndrome; Anxiety; History of colonic polyps Start: 05-11-2023 Telephone encounter Jacek Scruggs MD Work Phone: [facility] [place] Comment on above: Results Refill Request Start: 04-09-2023 Refill Jacek Scruggs MD Work Phone: [facility] Comment on above: Refill Request Start: 03-25-2023 End: 03-25-2023 Patient encounter procedure Jacek Scruggs MD Work Phone: [facility] Comment on above: Postlaminectomy synd mack (Primary Dx); Other migraine without status migrainosus, not intractable; Primary hypertension; Medication monitoring encounter Start: 03-20-2023 End: 03-20-2023 Patient encounter procedure John Pfeiffer PA-C Work Phone: [facility] [place] Comment on above: Primary hypertension (Primary Dx); GERD without esophagitis; Moderate major depression, single episode (HCC); Anxiety; Chronic insomnia; Postlaminectomy syndrome; Arthralgia, unspecified joint; Other migraine without status migrainosus, not intractable Start: 03-18-2023 Refill Jacek Scruggs MD Work Phone: [facility] Comment on above: Refill Request Start: 02-17-2023 Refill Jacek Scruggs MD Work Phone: [facility] Comment on above: Refill Request Start: 01-12-2023 End: 01-12-2023 Patient encounter procedure Jacek Scruggs MD Work Phone: [facility] Comment on above: Postlaminectomy synd mack (Primary Dx); GERD without esophagitis; Adjustment disorder with anxious mood Start: 12-29-2022 Refill Jacek Scruggs MD Work Phone: [facility] Comment on above: Refill Request Start: 2022 Refill Jacek Scruggs MD Work Phone: [facility] Comment on above: Refill Request Start: 12-05-2022 Refill Jacek Scruggs MD Work Phone: [facility] Comment on above: Refill Request Start: 12-03-2022 End: 12-03-2022 ambulatory [facility] Start: 12-03-2022 End: 12-03-[address] Jacek Scruggs Work Phone: [facility] Start: 12-01-2022 End: 12-01-2022 ambulatory [facility] Facility:[facility] Start: 12-01-2022 End: 12-01-[address] Jacek Scruggs Work Phone: [facility] Work Phone: Start: 12-01-2022 End: 12-01-[address] Jacek Scruggs Work Phone: [facility]-Physical Therapy Start: 11-24-2022 Refill Jacek Scruggs MD Work Phone: [facility] Comment on above: Refill Request Start: 11-13-2022 End: 11-13-2022 Patient encounter procedure Jacek Scruggs MD Work Phone: [facility] Comment on above: Anxiety (Primary Dx) ; Postlaminectomy syndrome; Other migraine without status migrainosus, not intractable; Primary hypertension; GERD without esophagitis Start: 11-12-2022 End: 11-12-2022 ambulatory [facility] Facility:[facility] Start: 11-12-2022 End: 11-12-[address] Jacek Scruggs Work Phone: [facility] Start: 10-29-2022 End: 10-29-2022 [facility] Start: 10-29-2022 End: 10-29-[address] Jacek Scruggs Work Phone: [facility] Start: 10-28-2022 End: 10-28-2022 Refill Jacek Scruggs MD Work Phone: [facility] Comment on above: Refill Request Start: 10-28-2022 End: 10-28-[address] Jacek Scruggs Work Phone: [facility] Start: 10-27-2022 End: 10-27-2022 ambulatory [facility] Facility:[facility] Start: 10-27-2022 End: 10-27-[address] Jacek Scruggs Work Phone: [facility] Start: 10-26-2022 End: 10-26-2022 Emergency department patient visit Dr. Kirit Goldberg Facility:[facility] Start: 10-26-2022 End: 10-26-2022 Emergency department patient visit Dr. Jacek Scruggs Work Phone: [facility]-Emergency Department Start: 10-14-2022 End: 10-14-2022 Patient encounter procedure Jacek Scruggs MD Work Phone: [facility] Comment on above: Other migraine witho ut status migrainosus, not intractable (Primary Dx); GERD without esophagitis; Adjustment disorder with anxious mood; Postlaminectomy syndrome; Primary hypertension; Screening breast examination Start: 10-02-2022 ambulatory [facility] Facility:[facility] Start: 10-02-[address] Emily Scruggs Work Phone: [facility]-Cardiovascul [facility] Services Start: 09-30-2022 ambulatory Tre[facility] Start: 09-30-2022 Non-patient / Non-visit Dr. Sheldon Scruggs Work Phone: [facility] Start: 09-30-2022 End: 09-30-[address] Jacek Scruggs Work Phone: [facility] Work Phone: Start: 09-30-2022 End: 09-30-[address] Jacek Scruggs Work Phone: [facility] Start: 09-29-2022 Refill Jacek Scruggs MD Work Phone: [facility] Comment on above: Refill Request Start: 09-24-2022 End: 09-24-[address] Jacek Scruggs Work Phone: [facility]-Laboratory Start: 09-24-2022 End: 09-24-2022 ambulatory [facility] Facility:[facility] Start: 09-24-2022 End: 09-24-[address] Jacek Scruggs Work Phone: [facility] Start: 09-03-2022 End: 09-03-2022 ambulatory Rafi LOW Facility:[facility] Start: 09-03-2022 End: 09-03-[address] Jacek Scruggs Work Phone: [facility] Start: 08-04-2022 End: 08-04-2022 Patient encounter procedure Dr. Jacek Scruggs Work Phone: [facility], Specimen Start: 08-04-2022 End: 08-04-[address] Jacek Scruggs Work Phone: [facility] Work Phone: Start: 08-04-2022 End: 08-04-[address] Jacek Scruggs Work Phone: [facility] Start: 08-01-2022 Refill Jacek Scruggs MD Work Phone: [facility] [place] Comment on above: Refill Request Start: 07-28-2022 Telephone encounter Jacek Scruggs MD Work Phone: [facility] [place] Comment on above: Covid update Start: 07-04-2022 End: 07-04-2022 Patient encounter procedure Jacek Scruggs MD Work Phone: [facility] [place] Comment on above: Adjustment disorder with anxious mood (Primary Dx); GERD without esophagitis; Postlaminectomy syndrome; Other migraine without status migrainosus, not intractable Start: 07-01-2022 Refill Jacek Scruggs MD Work Phone: [facility] [place] Comment on above: Refill Request Start: 06-02-2022 Refill Jacek Scruggs MD Work Phone: [facility] [place] Comment on above: Refill Request Start: 05-27-2022 Refill Jacek Scruggs MD Work Phone: [facility] [place] Comment on above: Refill Request Start: 05-23-2022 Telephone encounter Jacek Scruggs MD Work Phone: [facility] [place] Comment on above: Insurance Authorizat ion; Medication Update Start: 05-22-2022 Refill Jacek Scruggs MD Work Phone: [facility] [place] Comment on above: Refill Request Start: 05-21-2022 Telephone encounter John Pfeiffer PA-C Work Phone: [facility] [place] Comment on above: Results Start: 05-19-2022 End: 05-19-2022 Subsequent hospital visit by physician Ruddy [facility] [place] Work Phone: Radiology Comment on above: Sprain of left wrist , subsequent encounter [S63.502D] Start: 05-19-2022 End: 05-19-2022 Patient encounter procedure John Pfeiffer PA-C Work Phone: [facility] [place] Comment on above: DDD (degenerative di sc disease), lumbar (Primary Dx); Arthralgia, unspecified joint; Other migraine without status migrainosus, not intractable; Headaches; Postlaminectomy syndrome; Moderate major depression, single episode ([facility]); GERD without esophagitis; Sprain of left wrist, subsequent encounter; Iliotibial band syndrome affecting lower leg, right Start: 04-28-2022 End: 04-28-2022 Emergency department patient visit Luis Kearney Facility:[facility] Start: 04-28-2022 End: 04-28-2022 Emergency department patient visit Dr. Jacek Scruggs Work Phone: [facility] Start: 04-02-2022 Refill Jacek Scruggs MD Work Phone: [facility] Comment on above: Refill Request (SEE RX NOTES) Start: 03-11-2022 Telephone encounter Jacek Scruggs MD Work Phone: [facility] Comment on above: Results Start: 03-03-2022 End: 03-03-2022 Patient encounter procedure Jacek Scruggs MD Work Phone: [facility] Comment on above: Arthralgia, unspecif ied joint (Primary Dx); DDD (degenerative disc disease), lumbar; Headaches; Dermatitis Start: 01-31-2022 Refill Jacek Scruggs MD Work Phone: [facility] Comment on above: Refill Request Start: 01-24-2022 Refill Jacek Scruggs MD Work Phone: [facility] Comment on above: Refill Request (SEE RX NOTES) Start: 01-01-2022 End: 01-01-2022 Patient encounter procedure Jacek Scruggs MD Work Phone: [facility] Comment on above: GERD without esophag itis (Primary Dx); DDD (degenerative disc disease), lumbar; Other migraine without status migrainosus, not intractable Procedures Date Procedure Procedure Detail Performing Clinician Start: 03-03-2025 Gluc bld gluc mntr d ev cleared fda spec home use Gypsy Rachel ASSOCIATE TECHNICIAN.SCIENTIFIC DIVER Work Phone: Start: 03-03-2025 Colonoscopy flx dx w/collj spec when pfrmd Quin Mendez 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 Work Phone: Start: 03-03-2025 Colonoscopy Sage salgado MD Work Phone: Start: 07-28-2024 Radex spine lumbosac ral 2/3 views Dillon Kim 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 Work Phone: Start: 07-28-2024 Urnls dip stick/tabl et rgnt auto w/o microscopy Dillon Kim 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 Work Phone: Start: 05-26-2024 Lipid 1996 panel - S daily or Plasma Xr [place] Work Phone: Start: 05-02-2024 Adult depression screening assessment Jacek Scruggs MD Work Phone: Start: 03-07-2024 Ct abdomen & pelvis w/contrast material Madelaine Tomlinson 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 Work Phone: Start: 03-07-2024 Urnls dip stick/tabl et reagent auto microscopy Madelaine Tomlinson 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 Work Phone: Start: 03-07-2024 Urnls dip stick/tabl et rgnt auto w/o microscopy Madelaine Tomlinson 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 Work Phone: Start: 08-03-2023 Radex spine thoracic 3 views Jacek Scruggs MD Work Phone: Start: 07-25-2023 Radex spine cervical 4 or 5 views Rhea Nayak 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 Work Phone: Start: 12-03-2022 Radiologic examinati on of knee Dr. Jacek Scruggs Work Phone: Start: 11-12-2022 Radiologic examinati on of knee Dr. Jacek Scruggs Work Phone: Start: 10-28-2022 MRI of joint of lowe r extremity Dr. Jacek Scurggs Work Phone: Start: 10-26-2022 Radiologic examinati on of knee Dr. Jacek Scruggs Work Phone: Start: 09-03-2022 Plain X-ray of shoulder Dr. Jacek Scruggs Work Phone: Start: 09-03-2022 X-ray of cervical spine Dr. Jacek Scruggs Work Phone: Start: 07-27-2022 2019 CORONAVIRUS [facility] Pr ovider Start: 05-19-2022 Radex wrist complete minimum 3 views M Dileep Pfeiffer PA-C Work Phone: Start: 04-28-2022 Radiologic examinati on of knee Dr. Jacek Scruggs Work Phone: Start: 04-28-2022 CT of head without contrast Dr. Jacek Scruggs Work Phone: Start: 04-28-2022 Plain x-ray of wrist Dr Uriel Scruggs Work Phone: Start: 02-07-2022 Lipid 1996 panel - S daily or Plasma Jacek Scruggs MD Work Phone: Start: 10-18-2021 Mammography Jacek Wallace MD Work Phone: Start: 02-28-2020 Colonoscopy Jacek Wallace MD Work Phone: Start: 12-16-2016 Adult depression screening assessment HUGH Pfeiffer PA-C Work Phone: Urine culture Dr. Jacek Wallace Work Phone: Urine culture Dr. Jacek Wallace Work Phone: Plan of Treatment Date Care Activity Detail Author Start: 03-03-2035 Screening for malign ant neoplasm of colon [facility] Start: 05-26-2029 Lipid panel Lipid Screening [facility] Start: 03-03-2028 Diabetes Screening Diabetes Screenin g [facility] Start: 03-09-2027 Diabetes Screening Diabetes Screenin g [facility] Start: 02-07-2027 Lipid 1996 panel - Serum or Plasma Lipid Screening [facility] Start: 02-07-2027 Lipid panel Lipid Screening [facility] Start: 02-07-2027 LIPID SCREEN LIPID SCREEN [facility] Start: 07-09-2026 Diabetes Screening Diabetes Screenin g [facility] Start: 03-20-2026 Annual PCP Team Violin Repairer rayo Disease Visit Annual PCP Team Chronic Disease Visit [facility] Start: 01-16-2026 Annual PCP Team Violin Repairer rayo Disease Visit Annual PCP Team Chronic Disease Visit [facility] Start: 12-15-2025 Annual PCP Team Violin Repairer rayo Disease Visit Annual PCP Team Chronic Disease Visit [facility] Start: 12-15-2025 BP Controlled (<130/80) BP Controlle d (<130/80) [facility] Start: 11-14-2025 Annual PCP Team Violin Repairer rayo Disease Visit Annual PCP Team Chronic Disease Visit [facility] Start: 09-19-2025 Annual PCP Team Violin Repairer rayo Disease Visit Annual PCP Team Chronic Disease Visit [facility] Start: 09-19-2025 BP Controlled (<130/80) BP Controlle d (<130/80) [facility] Start: 08-31-2025 End: 08-31-2025 Patient encounter procedure 08/31/2025 7:30 AM EST Appointment Mammogram [address] [place] [address] Encounter for screening mammogram for breast cancer [Z12.31] Mammogram Comment on above: Encounter for screen ing mammogram for breast cancer [Z12.31] Start: 08-30-2025 Screening for malign ant neoplasm of breast Mammogram Screening [facility] Start: 08-11-2025 End: 08-11-2025 Patient encounter procedure 08/11/2025 7:00 AM EST Office Visit OB/Gynecology [address] [place] [address] Judith Newman APRN.SCHOOL TRANSPORTATION SUPERVISOR [address] [place] [address] Annual OB/Gynecology Comment on above: Annual Start: 08-08-2025 End: 08-08-2025 Patient encounter procedure 08/08/2025 4:00 PM EST Office Visit Neurology [address] [place] [address] Robyn Harris PA-C [address] [place] [address] botox injection Neurology Comment on above: botox injection Start: 08-03-2025 BP Controlled (<130/80) BP Controlle d (<130/80) [facility] Start: 08-03-2025 Screening for malign ant neoplasm of cervix Cervical Cancer Screening [facility] Start: 07-04-2025 Annual PCP Team Violin Repairer rayo Disease Visit Annual PCP Team Chronic Disease Visit [facility] Start: 07-04-2025 BP Controlled (<130/80) BP Controlle d (<130/80) [facility] Start: 06-22-2025 LIPID SCREEN LIPID SCREEN [facility] Start: 06-19-2025 End: 06-19-2025 Patient encounter procedure 06/19/2025 6:20 PM EDT Office Visit [facility] [place] [address] [place], [place] [id number] Jacek Scruggs MD [address] [place], [place] [id number] 2 mo follow up Family [facility] Comment on above: 2 mo follow up Start: 05-22-2025 Influenza vaccination C [facility] Start: 05-10-2025 End: 05-10-2025 Patient encounter procedure 05/10/2025 3:30 PM EDT Office Visit Neurology [address] [place], [place] [phone] Robyn Harris PA-C [address] [place], [place] [id number] Botox (200 unit vial, auth approved, coming from [facility]) Neurology Comment on above: Botox (200 unit vial , auth approved, coming from [facility]) Start: 05-02-2025 Annual PCP Team Violin Repairer rayo Disease Visit Annual PCP Team Chronic Disease Visit [facility] Start: 05-02-2025 BP Controlled (<130/80) BP Controlle d (<130/80) [facility] Start: 05-02-2025 Depression Screening Depression Scre ening [facility] Start: 04-27-2025 End: 04-27-2025 Patient encounter procedure 04/27/2025 9:00 AM EDT Office Visit Neurology [address] [place] [address] [place] [phone] Robyn Harris PA-C [address] [place], [place] [phone] Botox Neurology Comment on above: Botox Start: 03-20-2025 End: 03-20-2025 Patient encounter procedure 03/20/2025 7:00 PM EDT Office Visit [facility] [place] [address] [place] [address] Jacek Scruggs MD [address] [place] [address] 2 mo follow up [facility] [place] Comment on above: 2 mo follow up Start: 03-20-2025 Influenza vaccination Influenza Vacc ine (#1) [facility] Comment on above: Postponed from 05/22 (Declined at this time) Start: 03-07-2025 Annual PCP Team Violin Repairer rayo Disease Visit Annual PCP Team Chronic Disease Visit [facility] Start: 03-05-2025 BP Controlled (<130/80) BP Controlle d (<130/80) [facility] Start: 03-03-2025 End: 03-03-2025 Patient encounter procedure [facility] Comment on above: Colonsocopy Start: 03-02-2025 End: 03-02-2025 Anesthesia consultation 03/02/2025 11:59 PM EDT Anesthesia Event [facility] [address] [place] [address] Sinai Downey SRNA [facility] Start: 03-01-2025 Annual PCP Team Violin Repairer rayo Disease Visit Annual PCP Team Chronic Disease Visit [facility] Start: 03-01-2025 BP Controlled (<130/80) BP Controlle d (<130/80) [facility] Start: 03-01-2025 Urine microalbumin profile DTaP,Tdap,Td Vaccine (3 - Td or Tdap) [facility] Comment on above: Postponed from 07/04 (Declined at this time) Start: 02-27-2025 Colonoscopy COLONOSCOPY [facility] Start: 02-27-2025 COLORECTAL CANCER SCREENING COLORECTAL CANCER SCREENING [facility] Start: 02-27-2025 Screening for malign ant neoplasm of colon [facility] Start: 02-07-2025 DIABETES SCREEN DIABETES SCREEN [facility] Start: 02-07-2025 Diabetes Screening Diabetes Screenin g [facility] Start: 01-25-2025 End: 01-25-2025 Patient encounter procedure 01/25/2025 4:25 PM EDT Office Visit Neurology [address] [facility] [place] [phone] Malou Baez PA-C [address] [facility] [address] [place] [address] Botox patient of Robyn Harris: auth 10/14/2024 to 04/12/2025 Neurology Comment on above: Botox patient of [place] Harris: auth 10/14/2024 to 04/12/2025 Start: 01-19-2025 End: 01-19-2025 Patient encounter procedure 01/19/2025 3:00 PM EDT Office Visit Neurology [address] [facility] [place] [phone] Robyn Harris PA-C [address] [place], [place] [phone] botox Neurology Comment on above: botox Start: 01-16-2025 End: 01-16-2025 Patient encounter procedure 01/16/2025 6:40 PM EDT Office Visit Family [facility] [address] [place], [place] [phone] Jacek Scruggs MD [address] [place], [place] [phone] 2 mo follow pu [facility] [place] Comment on above: 2 mo follow pu Start: 12-27-2024 Annual PCP Team Violin Repairer rayo Disease Visit Annual PCP Team Chronic Disease Visit [facility] Start: 12-27-2024 Hepatitis C screening Hepatitis C [facility] Comment on above: Postponed from 12/23 (Declined at this time) Start: 12-27-2024 HIV screening HIV Screening [facility] Comment on above: Postponed from 12/23 (Declined at this time) Start: 11-14-2024 End: 11-14-2024 Patient encounter procedure 11/14/2024 6:00 PM EST Office Visit Family [facility] [place] [address] [place] [address] Jacek Scruggs MD [address] [facility] [place], [place] [id number] 2 mo follow up [facility] [place] Comment on above: 2 mo follow up Start: 11-09-2024 End: 11-09-2024 Patient encounter procedure 11/09/2024 3:30 PM EST Office Visit Neurology [address] [facility] [place], [place] [address] Robyn Harris PA-C [address] [facility] [place] [place] [address] Allergic reaction to medication Neurology Comment on above: Allergic reaction to medication Start: 10-26-2024 Annual PCP Team Violin Repairer rayo Disease Visit Annual PCP Team Chronic Disease Visit [facility] Start: 10-21-2024 End: 10-21-2024 Patient encounter procedure 10/21/2024 3:30 PM EST Office Visit Neurology [address] [facility] [place] [phone] Robyn Harris PA-C [address] [facility] [place] [phone] first treatment, auth approved on 10/18/24 Neurology Comment on above: first treatment, aut h approved on 10/18/24 Start: 10-12-2024 End: 10-12-2024 Patient encounter procedure 10/12/2024 11:00 AM EST Office Visit Neurology [address] [facility], [place] [address] Robyn Harris PA-C [address] [facility] [place] [address] 3 month follow up Neurology Comment on above: 3 month follow up Start: 10-05-2024 End: 10-05-2024 Patient encounter procedure 10/05/2024 4:00 PM EST Office Visit Neurology [address] [facility] [place] [phone] Robyn Harris PA-C [address] [facility] [place], [place] [phone] 3 month follow up Neurology Comment on above: 3 month follow up Start: 09-20-2024 Behavioral Health Screening Behavioral Health Screening [facility] Comment on above: Postponed from 09/21 (Declined at this time) Start: 09-19-2024 End: 09-19-2024 Patient encounter procedure 09/19/2024 5:20 PM EST Office Visit Family [facility] [place] [address] [place], [place] [phone] Jacek Scruggs MD [address] [place], [place] [address] 2 mo f/u Family [facility] [place] Comment on above: 2 mo f/u Start: 09-07-2024 End: 04-07-2025 US Abdomen RUQ US ABD RIGHT UPPER QUADRANT Radiology Routine Liver lesion Expected: 09/07/2024, Expires: 04/07/2025 [facility] Work Phone: Comment on above: Expected: 09/07/2024 , Expires: 04/07/2025 Start: 09-02-2024 End: 09-02-2024 ambulatory 09/02/2024 11:00 AM EST [facility] Neurology [address] [place] [address] [place] [phone] Robyn Harris PA-C [address] [facility] [place] [address] Allergic reaction to medication Neurology Comment on above: Allergic reaction to medication Start: 08-30-2024 End: 08-30-2024 Patient encounter procedure 08/30/2024 7:10 AM EST Appointment Mammogram [address] [place], [place] [phone] Mammogram Start: 08-24-2024 BP Controlled (<130/80) BP Controlle d (<130/80) [facility] Start: 08-15-2024 End: 08-15-2024 Patient encounter procedure 08/15/2024 7:30 AM EST Appointment Mammogram [address] [place], [place] [phone] Screening breast examination [Z12.39] Mammogram Comment on above: Screening breast exa mination [Z12.39] Start: 08-12-2024 Mammography Mammogram Screening [facility] Start: 08-12-2024 Screening for malign ant neoplasm of breast Mammogram Screening [facility] Start: 08-05-2024 End: 08-05-2024 Patient encounter procedure 08/05/2024 2:40 PM EST Office Visit [facility] [place] [address] [place] [address] Coby Sotelo 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 [address] [place] [address] express care follow up Family [facility] [place] Comment on above: express care follow up Start: 08-03-2024 Annual PCP Team Violin Repairer rayo Disease Visit Annual PCP Team Chronic Disease Visit [facility] Start: 08-03-2024 End: 08-03-2024 Patient encounter procedure 08/03/2024 7:30 AM EST Office Visit OB/Gynecology [address] [place] [address] Judith Newman APRN.SCHOOL TRANSPORTATION SUPERVISOR [address] [place] [address] [facility] OB/Gynecology Comment on above: [facility] Start: 07-29-2024 End: 07-29-2024 Patient encounter procedure 07/29/2024 2:00 PM EST Office Visit Family Medicine [place] [address] [place] [address] Express Care Follow up [facility] [place] Comment on above: Express Care Follow up Start: 07-12-2024 End: 07-12-2024 Patient encounter procedure 07/12/2024 7:00 AM EDT Office Visit Neurology [address] [place] [address] Robyn Harris PA-C [address] [place] [address] Other migraine without status migrainosus, not intractable [G43.809] Neurology Comment on above: Other migraine witho ut status migrainosus, not intractable [G43.809] Start: 07-04-2024 End: 07-04-2024 Patient encounter procedure 07/04/2024 6:20 PM EDT Office Visit Family [facility] [address] [place] [address] Jacek Scruggs MD [address] [facility] [place] [address] 2 month follow up Family [facility] Comment on above: 2 month follow up Start: 06-01-2024 ANNUAL PCP TEAM SHEET METAL INSULATOR RAYO DISEASE VISIT ANNUAL PCP TEAM CHRONIC DISEASE VISIT [facility] Start: 06-01-2024 BP CONTROLLED (<130/80) BP CONTROLLE D (<130/80) [facility] Start: 05-24-2024 End: 05-24-2024 Patient encounter procedure 05/24/2024 2:45 PM EDT Office Visit Neurology [address] [facility] [place], [place] [phone] Robyn Harris PA-C [address] [facility] [place] [address] Other migraine without status migrainosus, not intractable [G43.809] Neurology Comment on above: Other migraine witho ut status migrainosus, not intractable [G43.809] Start: 05-22-2024 Influenza vaccination [facility] Start: 05-02-2024 End: 05-02-2024 Patient encounter procedure 05/02/2024 6:20 PM EDT Office Visit Family Pankaj Patten [address] [place] [address] Jacek Scruggs MD [address] [facility] [place], [place] [phone] 2 month follow up Family Pankaj P[facility] Comment on above: 2 month follow up Start: 05-02-2024 End: 08-01-2024 CBC W Auto Differential panel - Blood COMPLETE BLOOD COUNT AND DIFFERENTIAL Lab Routine Anxiety Expected: 05/02/2024, Expires: 08/01/2024 [facility] Work Phone: Comment on above: Expected: 05/02/2024 , Expires: 08/01/2024 Start: 05-02-2024 End: 08-01-2024 Lipid 1996 panel - Serum or Plasma LIPID PANEL BASIC Lab Routine Mixed hyperlipidemia Expected: 05/02/2024, Expires: 08/01/2024 [facility] Comment on above: Expected: 05/02/2024 , Expires: 08/01/2024 Start: 05-02-2024 End: 08-01-2024 Thyrotropin [Units/volume] in Serum or Plasma THYROID STIMULATING HORMONE Lab Routine Weight gain Expected: 05/02/2024, Expires: 08/01/2024 [facility] Comment on above: Expected: 05/02/2024 , Expires: 08/01/2024 Start: 05-02-2024 End: 08-01-2024 TOXICOLOGY SCREEN, ROUTINE URINE TOXICOLOGY SCREEN, ROUTINE URINE Lab Routine Medication monitoring encounter Expected: 05/02/2024, Expires: 08/01/2024 [facility] Comment on above: Expected: 05/02/2024 , Expires: 08/01/2024 Start: 03-30-2024 End: 03-30-2024 Patient encounter procedure 03/30/2024 10:45 AM EDT Appointment Radiology [address] [place] [address] [place] Radiology Comment on above: Start: 03-25-2024 ANNUAL PCP TEAM SHEET METAL INSULATOR RAYO DISEASE VISIT ANNUAL PCP TEAM CHRONIC DISEASE VISIT [facility] Start: 03-20-2024 ANNUAL PCP TEAM SHEET METAL INSULATOR RAYO DISEASE VISIT ANNUAL PCP TEAM CHRONIC DISEASE VISIT [facility] Start: 03-01-2024 End: 05-31-2024 Comprehensive metabolic 2000 panel - Serum or Plasma COMPREHENSIVE METABOLIC PANEL Lab Routine Gastroesophageal reflux disease without esophagitis Medication monitoring encounter Expected: 03/01/2024, Expires: 05/31/2024 [facility] Work Phone: Comment on above: Expected: 03/01/2024 , Expires: 05/31/2024 Start: 03-01-2024 End: 05-31-2024 TOXICOLOGY SCREEN, ROUTINE URINE TOXICOLOGY SCREEN, ROUTINE URINE Lab Routine Medication monitoring encounter Expected: 03/01/2024, Expires: 05/31/2024 [facility] Comment on above: Expected: 03/01/2024 , Expires: 05/31/2024 Start: 02-29-2024 End: 02-29-2024 Patient encounter procedure 02/29/2024 6:00 PM EDT Office Visit [facility] [place] [address] [place] [address] Jacek Scruggs MD [address] [facility] [place] [id number] 2 month follow up [facility] [place] Comment on above: 2 month follow up Start: 01-13-2024 ANNUAL PCP TEAM SHEET METAL INSULATOR RAYO DISEASE VISIT ANNUAL PCP TEAM CHRONIC DISEASE VISIT [facility] Start: 01-13-2024 BP CONTROLLED (<130/80) BP CONTROLLE D (<130/80) [facility] Start: 01-13-2024 COVID-19 VACCINE (#1) COVID-19 VACCI NE (#1) [facility] Comment on above: Postponed from 06/24 (Declined at this time) Start: 11-13-2023 ANNUAL PCP TEAM SHEET METAL INSULATOR RAYO DISEASE VISIT ANNUAL PCP TEAM CHRONIC DISEASE VISIT [facility] Start: 09-21-2023 Depression Assessment Depression Ass essment [facility] Start: 07-23-2023 HPV TESTING HPV TESTING [facility] Start: 07-23-2023 PAP TESTING PAP TESTING [facility] Start: 07-23-2023 Screening for malign ant neoplasm of cervix [facility] Start: 07-04-2023 Urine microalbumin profile [facility] Start: 06-22-2023 DIABETES SCREEN [facility] [facility] Start: 05-22-2023 Covid-19 Vaccine () Covid-19 Vaccine () [facility] Start: 05-22-2023 Influenza vaccination C [facility] Start: 03-25-2023 End: 05-25-2023 TOX SCREEN ROUT UR TOX SCREEN ROUT UR Lab Routine Medication monitoring encounter Expected: 03/25/2023, Expires: 05/25/2023 [facility] Work Phone: Comment on above: Expected: 03/25/2023 , Expires: 05/25/2023 Start: 11-12-2022 Patient referral [facility] Work Phone: Start: 10-18-2022 Mammography [facility] Start: 09-21-2022 DEPRESSION ASSESSMENT DEPRESSION ASS ESSMENT [facility] Start: 05-22-2022 Influenza vaccination INFLUENZA (#1) [facility] Start: 04-28-2022 Radiologic examinati on of knee Knee 4 or More Views [facility] Work Phone: Start: 04-28-2022 XR Knee GE 4 Views [facility] Work Phone: Start: 03-03-2022 End: 03-03-2023 ELINA BY IFA SCREEN [facility] Work Phone: Comment on above: Expected: 03/03/2022 , Expires: 03/03/2023 Start: 03-03-2022 End: 03-03-2023 C reactive protein [Mass/volume] in Serum or Plasma [facility] Work Phone: Comment on above: Expected: 03/03/2022 , Expires: 03/03/2023 Start: 03-03-2022 End: 03-03-2023 Erythrocyte sedimentation rate [facility] Work Phone: Comment on above: Expected: 03/03/2022 , Expires: 03/03/2023 Start: 03-03-2022 End: 03-03-2023 Rheumatoid factor [Units/volume] in Serum or Plasma [facility] Work Phone: Comment on above: Expected: 03/03/2022 , Expires: 03/03/2023 Start: 09-21-2021 DEPRESSION ASSESSMENT DEPRESSION ASS ESSMENT [facility] Start: 12-23-2020 COLOGUARD (FIT-DNA) COLOGUARD (FIT-D NA) [facility] Start: 12-23-2020 Colonoscopy COLONOSCOPY [facility] Start: 12-23-2020 COLORECTAL CANCER SCREENING COLORECTAL CANCER SCREENING [facility] Start: 12-23-[address] COLONOGRAPHY [facility] Start: 12-23-2020 FECAL OCCULT BLOOD FECAL OCCULT BLOO D [facility] Start: 12-23-2020 Screening for malign ant neoplasm of colon [facility] Start: 12-23-2020 SIG[facility]OSCOPY [facility] Start: 12-16-2017 Adult depression screening assessment DEPRESSION SCREENING [facility] Start: 04-25-2012 PNEUMOCOCCAL (2 - PCV) PNEUMOCOCCAL (2 - PCV) [facility] Start: 12-23-1993 BP CONTROLLED (<130/80) BP CONTROLLE D (<130/80) [facility] Start: 12-23-1993 HEPATITIS C SCREENING HEPATITIS C [facility] Start: 12-23-1993 Hepatitis C screening Hepatitis C [facility] Start: 12-23-1993 HIV SCREENING HIV SCREENING [facility] Start: 12-23-1993 HIV screening HIV Screening [facility] Start: 12-23-1980 COVID-19 VACCINE (#1) COVID-19 VACCI NE (#1) [facility] Start: 12-23-1980 COVID-19 VACCINE (1) COVID-19 VACCIN E (1) [facility] Start: 06-24-1976 COVID-19 VACCINE (#1) COVID-19 VACCI NE (#1) [facility] Start: 1975 HEPATITIS B (1 of 3 - 3-dose series) HEPATITIS B (1 of 3 - 3-dose series) [facility] Bacteria identified in Urine by Culture URINE CULTURE Microbiology Routine Urinary frequency Ordered: 03/05/2024 [facility] Work Phone: Comment on above: Ordered: 03/05/2024 Bacteria identified in Urine by Culture URINE CULTURE Microbiology Routine Hematuria, unspecified type Dysuria 03/07/2024 11:55 AM EDT [facility] Work Phone: Bacteria identified in Urine by Culture URINE CULTURE Microbiology Routine Nausea 07/28/2024 2:13 PM EST [facility] End: 09-02-2025 DBT Breast - bilateral screening SKY SCREENING [facility] Radiology Routine Encounter for screening mammogram for breast cancer 1 Occurrences starting 08/03/2024 until 09/02/2025 [facility] Work Phone: Comment on above: 1 Occurrences starti ng 08/03/2024 until 09/02/2025 End: 08-30-2024 DBT Breast - bilateral screening [facility] Work Phone: Comment on above: ONCE for 1 Occurrenc es starting 08/30/2024 until 08/30/2024 ECG COMPLETE ECG COMPLETE ECG TATIANA Nausea Ordered: 07/28/2024 [facility] Work Phone: Comment on above: Ordered: 07/28/2024 End: 09-01-2024 SKY SCREENING SKY SCREENING Radiology Routine Screening breast examination 1 Occurrences starting 08/03/2023 until 09/01/2024 [facility] Work Phone: Comment on above: 1 Occurrences starti ng 08/03/2023 until 09/01/2024 End: 11-13-2023 SKY SCREENING [place] SKY SCREENING [facility] [place] Radiology Routine Screening breast examination 1 Occurrences starting 10/14/2022 until 11/13/2023 [facility] Work Phone: Comment on above: 1 Occurrences starti ng 10/14/2022 until 11/13/2023 End: 09-01-2024 SKY SCREENING [place] SKY SCREENING [facility] [place] Radiology Routine Screening breast examination 1 Occurrences starting 08/03/2023 until 09/01/2024 [facility] Work Phone: Comment on above: 1 Occurrences starti ng 08/03/2023 until 09/01/2024 SKY SCREENING [place] SKY SCREENI NG [facility] [place] Radiology Routine Screening breast examination 08/12/2023 11:40 AM EST [facility] Work Phone: End: 06-01-2025 MG Breast Screening SKY SCREENING Radiology Routine Screening breast examination 1 Occurrences starting 05/02/2024 until 06/01/2025 [facility] Comment on above: 1 Occurrences starti ng 05/02/2024 until 06/01/2025 PAP TEST PAP TEST Lab Rou justin Screening for cervical cancer Encounter for screening for human papillomavirus (HPV) 08/03/2024 7:50 AM EST [facility] Patient Education [facility] Work Phone: Patient referral [facility] Work Phone: End: 09-01-2024 Radex spine thoracic 3 views XR THORACIC GENERAL 3V AP/LAT/SWIMMERS Radiology Routine Acute left-sided thoracic back pain 1 Occurrences starting 08/03/2023 until 09/01/2024 [facility] Work Phone: Comment on above: 1 Occurrences starti ng 08/03/2023 until 09/01/2024 Radex spine thoracic 3 views XR THORACIC GENERAL 3V AP/LAT/SWIMMERS Radiology Routine Acute left-sided thoracic back pain 08/03/2023 7:11 PM EST [facility] Work Phone: End: 01-23-2026 Screening colonoscopy COLONOSCOPY SCREENING Endoscopy Routine History of colonic polyps Screen for colon cancer 1 Occurrences starting 01/23/2025 until 01/23/2026 [facility] Work Phone: Comment on above: 1 Occurrences starti ng 01/23/2025 until 01/23/2026 UA DIP, URINE (POC) UA DIP, URIN E (POC) Lab Routine Urinary frequency Ordered: 03/05/2024 [facility] Work Phone: Comment on above: Ordered: 03/05/2024 End: 04-07-2025 US Pelvis transvaginal US FEMALE PELVIS TRANSVAG Radiology Routine Ovarian cyst, left Nabothian cyst Fibroid 1 Occurrences starting 03/08/2024 until 04/07/2025 [facility] Comment on above: 1 Occurrences starti ng 03/08/2024 until 04/07/2025 US Pelvis transvaginal US FEMALE PELVIS TRANSVAG Radiology Routine Ovarian cyst, left Nabothian cyst Fibroid 03/30/2024 11:26 AM EDT [facility] Work Phone: End: 08-03-2025 XR Tibia and Fibula - right AP and Lateral XR TIBIA FIBULA 2V AP/LAT RIGHT Radiology Routine Pain of right lower extremity 1 Occurrences starting 07/04/2024 until 08/03/2025 [facility] Work Phone: Comment on above: 1 Occurrences starti ng 07/04/2024 until 08/03/2025 XR Tibia and Fibula - right AP and Lateral XR TIBIA FIBULA 2V AP/LAT RIGHT Radiology Routine Pain of right lower extremity 07/04/2024 4:05 PM EDT [facility] Immunizations Immunization Date Immunization Notes Care Provider Beatriz valdovinos 05-12-2023 hepatitis B vaccine, adult dosage Jacek Scruggs MD Work Phone: [facility] Work Phone: 03-31-2023 hepatitis B vaccine, adult dosage Jacek Scruggs MD Work Phone: [facility] Work Phone: 08-05-2021 influenza, seasonal, injectable Jacek Scruggs MD Work Phone: [facility] 08-05-2021 influenza virus vacc ine, unspecified formulation Jacek Scruggs MD Work Phone: [facility] 06-19-2020 influenza, seasonal, injectable Dr. Jacek Scruggs Work Phone: [facility] 06-19-2020 influenza, seasonal, injectable, preservative free Jacek Scruggs MD Work Phone: [facility] Work Phone: 07-25-2019 influenza, seasonal, injectable Dr. Jacek Scruggs Work Phone: [facility] 07-25-2019 influenza, seasonal, injectable, preservative free Jacek Scruggs MD Work Phone: [facility] Work Phone: 07-06-2019 influenza, seasonal, injectable Jacek Scruggs MD Work Phone: [facility] Work Phone: 07-07-2018 influenza, injectabl e, quadrivalent, contains preservative Jacek Scruggs MD Work Phone: [facility] Work Phone: 07-05-2018 influenza, seasonal, injectable Dr. Jacek Scruggs Work Phone: [facility] 07-05-2018 influenza, seasonal, injectable, preservative free Jacek Scruggs MD Work Phone: [facility] Work Phone: 08-06-2017 influenza, seasonal, injectable Dr. Jacek Scruggs Work Phone: [facility] 08-06-2017 influenza, seasonal, injectable, preservative free Jacek Scruggs MD Work Phone: [facility] Work Phone: 06-27-2016 influenza, injectabl e, quadrivalent, preservative free Jacek Scruggs MD Work Phone: [facility] 06-25-2016 influenza, seasonal, injectable Dr. Jacek Scruggs Work Phone: [facility] 06-25-2016 influenza, seasonal, injectable, preservative free Jacek Scruggs MD Work Phone: [facility] Work Phone: 07-04-2015 influenza, seasonal, injectable Dr. Jacek Scruggs Work Phone: [facility] 07-04-2015 influenza, seasonal, injectable, preservative free Jacek Scruggs MD Work Phone: [facility] Work Phone: 06-29-2014 influenza, seasonal, injectable Jacek Scruggs MD Work Phone: [facility] 06-29-2014 influenza, seasonal, injectable, preservative free Jacek Scruggs MD Work Phone: [facility] Work Phone: 07-04-2013 tetanus toxoid, redu sofia diphtheria toxoid, and acellular pertussis vaccine, adsorbed Jacek Scruggs MD Work Phone: [facility] Work Phone: 04-25-2011 pneumococcal polysaccharide vaccine, 23 valent Jacek Scruggs MD Work Phone: [facility] 04-25-2011 tetanus toxoid, redu sofia diphtheria toxoid, and acellular pertussis vaccine, adsorbed Jacek Scruggs MD Work Phone: [facility] Payers Date Payer Category Payer [facility] [id number] 2024 Unknown [id number] 2023 Unknown [id number] 2022 Unknown [id number] 2022 Private Health Insurance A00 [id number] 2022 Self-pay [id number] 2016 Private Health Insurance [employer] PPO [id number] 2016-Present [phone] [facility] [id number] [place] [id number] O [id number] 2016 Private Health Insurance [id number] Unknown [id number] Unknown [id number]. 462 Unknown [id number]. 462 Unknown [id number]. 462 Unknown [id number]. 462 Unknown [id number]. 462 Unknown [id number]. 462 Unknown [id number] [id number]. 462 Unknown [id number] 2.16.840.1.543550.3.579.2. 462 Unknown [id number] 2.16.840.1.451255.3.579.2. 462 Unknown [id number]. 462 Unknown [id number] 2.16.840.1.853273.3.579.2. 462 Unknown [id number] 2.16.840.1.452701.3.579.2. 462 Unknown [id number] 2.16.840.1.063453.3.579.2. 462 Unknown [id number] 2.16.840.1.560799.3.579.2. 462 Unknown [id number] 2.16.840.1.639258.3.579.2. 462 Unknown [id number] [id number]. 462 Unknown [id number] 2.16.840.1.074919.3.579.2. 462 Unknown [id number] 2.16.840.1.290043.3.579.2. 462 Unknown [id number]. 462 Social History Date Type Detail Facility [facility]: [facility] Start: 01-01-2022 End: 05-10-2025 Alcohol intake Current non-drinker of alcohol (finding) [facility] Start: 1975 Sex Assigned At Not on file C [facility] Start: 12-22-2021 End: 07-04-2022 Exposure to SARS-CoV-2 (event) Not sure [facility] Start: 04-28-2022 End: 12-03-2022 Tobacco smoking status NHIS Unknown if ever smoked [facility] Start: 02-24-2020 Non-smoker [facility] Start: 1975 Sex Assigned At Female [facility] Start: 05-19-2022 Tobacco use and exposure Smoke less tobacco non-user [facility] Start: 03-20-2023 End: 03-25-2023 History of Social function [facility] Work Phone: Start: 03-20-2023 End: 03-25-2023 Tobacco use panel [facility] Work Phone: Start: 08-22-2012 National Score (1-10 0), lower number is lower risk 60 [facility] Work Phone: Has the [employer], or [employer] threatened to shut off services in your home in past 12Mo No [facility] Do you belong to any clubs or organizations such as jainism groups, unions, fraternal or athletic groups, or school groups? Yes [facility] Are you now , , , , never or living with a partner? [facility] How often to you hav e a drink containing alcohol? Never [facility] Do you feel stress - tense, restless, nervous, or anxious, or unable to sleep at night because your mind is troubled all the time - these days [OSQ] Only a little [facility] (I/We) worried wheth er (my/our) food would run out before (I/we) got money to buy more. Never true [facility] NEGATED: Highlighted row [facility] Goals Date Patient Goal Desired Activity /State Personal health goal Functional Status Date Assessment Result Facility 04-09-2015 Are you deaf, or do you have serious difficulty hearing No 04/09/2015 6:18 PM Danitza Agustin LPN No [facility] 04-09-2015 Are you blind, or do you have serious difficulty seeing, even when wearing glasses No 04/09/2015 6:18 PM Danitza Agustin LPN No [facility] 04-09-2015 Do you have serious difficulty walking or climbing stairs No 04/09/2015 6:18 PM Danitza Agustin LPN No [facility] 04-09-2015 Do you have difficul ty dressing or bathing No 04/09/2015 6:18 PM Danitza Agustin LPN No [facility] 04-09-2015 Because of a physica l, mental, or emotional condition, do you have difficulty doing errands alone such as visiting a physician's office or shopping No 04/09/2015 6:18 PM EDT Danitza Mendez LPN No [facility] Mental Status Date Assessment Result Facility 04-28-2022 Cognitive function Level Of Cons ciousness Awake;Alert;Appropriate;Fol lows Commands [facility] Work Phone: 04-09-2015 Because of a physica l, mental, or emotional condition, do you have serious difficulty concentrating, remembering, or making decisions No 04/09/2015 6:18 PM EDT Danitza Mendez LPN No [facility] Clinical Notes 04-09-2012 to 05-10-2025 Patient InstructionsRobyn Harris PA-C - 05/10/2025 3:14 PM EDTTelephone Encounter - Cori Hanson MA - 05/03/2025 9:18 AM EDTAddendum Note - Robyn Harris PA-C - 04/19/2025 3:54 PM EDT Note Date & Type Note Facility 05-10-2025 Instructions Robyn Harris PA-C - 05/10/2025 3:17 PM EDT Botox Home Instruction: Instruction after botox injection: - If you have any pain or swelling use ice, 20 min on and 20 min off. Do not rub or massage the area for 48 hrs. - If you have any neck stiffness, you may use heat and do stretching exercises. - This should improve over the next 5 days. - If it does not, call our office for further instructions. documented in this encounter [facility] 05-10-2025 Note HNO ID: [id number] Author: ROBYN HARRIS PA-C Service: ? Author Type: Physician Nurse Tech Type: Progress Notes Filed: 05/10/2025 16:08 Note Text: Follow-Up Onabotulinum Toxin A (BotoxTM) for Migraine Indication: Chronic Intractable Migraine Treatment #: 3 Referral Expiration: 04/19/2026 Prior to the initiation of the FIRST treatment with Onabotulinum Toxin A, the patient reported the following average headache frequency over the past 3 MONTHS: Number of moderate-severe migraine days/month: 30 (daily) Number of mild migraine days/month: 0 Number of headache free days/month: 0 (0 headache-free hours) Migraine severity: 06/30 After treatment with Onabotulinum Toxin A: Number of moderate-severe migraine days/month: 28 Number of mild migraine days/month: 0 Number of headache free days/month: 2 (48 headache-free hours) Migraine severity: 06/30 Patient reduction in overall migraine days: Yes Patient reduction in moderate-severe migraine days: Yes Patient reduction of headache hours by 100 hours or more: No Individual has obtained clinical benefit deemed significant by individual or prescriber (Y/N): Yes Patient's quality of life and ability to perform ADLs has improved (Y/N): Yes Side effects: none Wearing off: Yes - 9 weeks after treatment The patient has been assessed for disorders which could contribute to breathing or swallowing difficulty, and there is no contraindication with PREEMPT Botox. There is no documented allergic reaction/hypersensitivity to any botulinum toxin and there is no active infection at proposed injection site. HEADACHE SCORES: 07/10/2024 Headache Questions ID Migraine Screener: 3 (Positive) Initial improvement of headache after botox injection at last visit: Not applicable, I did not have a botox injection at my last visit 01/09/2025 03/13/2025 03/20/2025 UMAIR - 2/7 SCORES UMAIR-2 Score 0 1 1 1 1 UMAIR-7 Score 1 2 2 2 2 Multiple values from one day are sorted in reverse-chronological order 07/10/2024 Migraine Specific QOL - Higher scores indicate better HRQL Role Function-Restrictive Transformed Score (range: 0-100) 45.71 Role Function-Preventive Transformed Score (range: 0-100) 90 Emotional Function Transformed Score (range: 0-100) 66.67 05/02/2024 12/16/2016 09/29/2016 PHQ-9 Score 2 2 6 Data saved with a previous flowsheet row definition LMP 02/18/2025 (Exact Date) Patient name: Anastasia Simpson : 1975 ALLERGIES Allergen Reactions Celestone [Betameth* Other: See Comments Cheeks and neck red and hot- felt like she had a fever in top 1/2 of body, other steroids have been ok Codeine GI UPSET, HEART RACES Emgality Pen [Galca* Hives Neurontin [Gabapent* Other: See Comments Extreme dizziness Sulfa (Sulfonamide * UNKNOWN UNIVERSAL PROTOCOL / SAFETY CHECKLIST Procedure: Onabotulinum toxin A for migraine Informed Consent Consent Obtained: Written [place] Protocol A moment to CARE was completed SIGN IN Personnel directly involved with the procedure wore the appropriate PPE Special Equipment: N/A Patient/Surrogate Stated/Verified: Patient name, Date of , Relevant allergies and Intended procedure TIME OUT No relevant labs, photos, and/or imaging studies were applicable for review. Consent documented and matches the intended procedure No correct side/site applicable for marking and visibility. No medications required for procedure. No fire risk assessment and interventions applicable. No implant(s) inserted. SIGN OUT No specimen collected. Written Consent Obtained: Written LOT #: [id number] Expiration Date: Month: 3 Year: 2027 Injection Sites Left (Units) Left (Sites) Right (Units) Right (Sites) TOTAL (Units) Can Worker 5 1 5 1 10 Procerus Units: 5 Sites: 1 5 Frontalis 10 2 10 2 20 Temporalis 20 4 20 4 40 Occipitalis 15 3 15 3 30 Cervical PSP 10 2 10 2 20 Trapezius 15 3 15 3 30 Total Units used: 155 Total Units wasted: 45 Prior Therapies Duration of Use Dose Side effect Lexapro, propranolol, imitrex, norco, zofran Elavil TPM Gabapentin Qulipta denied PT presents for third botox, tolerated procedure well without complications. Currently on propranolol 60mg and imitrex for abortive. Will follow in three months for repeat admin. Notes that she had significant benefit for neck pain until it wore off at week 9. She did have 8 straight days of no headaches in February but then they returned. Notes that the imitrex may not be as effective anymore but has been taking them almost daily. Robyn Harris PA-C 05/09/2025 PROMIS Global Health Physical Health Summary Physical health: Fair Everyday physical activity, ability: A little Fatigue: Moderate Pain level: 7 General health: Fair Social activities/roles, ability: Poor Physical Health T-Score 32.4 (Poor) Physical Health Percentile 4 PROMIS [facility] Mental Health Summary Quality o (more content not included)... [facility] 05-10-2025 History of Present illness Narrative Images from the original note were not included. Follow-Up Onabotulinum Toxin A (BotoxTM) for Migraine Indication: Chronic Intractable Migraine Treatment #: 3 Referral Expiration: 04/19/2026 Prior to the initiation of the FIRST treatment with Onabotulinum Toxin A, the patient reported the following average headache frequency over the past 3 MONTHS: Number of moderate-severe migraine days/month: 30 (daily) Number of mild migraine days/month: 0 Number of headache free days/month: 0 (0 headache-free hours) Migraine severity: 06/30 After treatment with Onabotulinum Toxin A: Number of moderate-severe migraine days/month: 28 Number of mild migraine days/month: 0 Number of headache free days/month: 2 (48 headache-free hours) Migraine severity: 06/30 Patient reduction in overall migraine days: Yes Patient reduction in moderate-severe migraine days: Yes Patient reduction of headache hours by 100 hours or more: No Individual has obtained clinical benefit deemed significant by individual or prescriber (Y/N): Yes Patient's quality of life and ability to perform ADLs has improved (Y/N): Yes Side effects: none Wearing off: Yes - 9 weeks after treatment The patient has been assessed for disorders which could contribute to breathing or swallowing difficulty, and there is no contraindication with PREEMPT Botox. There is no documented allergic reaction/hypersensitivity to any botulinum toxin and there is no active infection at proposed injection site. HEADACHE SCORES: 07/10/2024 Headache Questions ID Migraine Screener: 3 (Positive) Initial improvement of headache after botox injection at last visit: Not applicable, I did not have a botox injection at my last visit 01/09/2025 03/13/2025 03/20/2025 UMAIR - 2/7 SCORES UMAIR-2 Score 0 1 1 1 1 UMAIR-7 Score 1 2 2 2 2 Multiple values from one day are sorted in reverse-chronological order 07/10/2024 Migraine Specific QOL - Higher scores indicate better HRQL Role Function-Restrictive Transformed Score (range: 0-100) 45.71 Role Function-Preventive Transformed Score (range: 0-100) 90 Emotional Function Transformed Score (range: 0-100) 66.67 05/02/2024 12/16/2016 09/29/2016 PHQ-9 Score 2 2 6 Data saved with a previous flowsheet row definition LMP 02/18/2025 (Exact Date) Patient name: Anastasia Simpson : 1975 ALLERGIES Allergen Reactions Celestone [Betameth* Other: See Comments Cheeks and neck red and hot- felt like she had a fever in top 1/2 of body, other steroids have been ok Codeine GI UPSET, HEART RACES Emgality Pen [Galca* Hives Neurontin [Gabapent* Other: See Comments Extreme dizziness Sulfa (Sulfonamide * UNKNOWN UNIVERSAL PROTOCOL / SAFETY CHECKLIST Procedure: Onabotulinum toxin A for migraine Informed Consent Consent Obtained: Written [place] Protocol A moment to CARE was completed SIGN IN Personnel directly involved with the procedure wore the appropriate PPE Special Equipment: N/A Patient/Surrogate Stated/Verified: Patient name, Date of , Relevant allergies and Intended procedure TIME OUT No relevant labs, photos, and/or imaging studies were applicable for review. Consent documented and matches the intended procedure No correct side/site applicable for marking and visibility. No medications required for procedure. No fire risk assessment and interventions applicable. No implant(s) inserted. SIGN OUT No specimen collected. Written Consent Obtained: Written LOT #: [id number] Expiration Date: Month: 3 Year: 2027 Injection Sites Left (Units) Left (Sites) Right (Units) Right (Sites) TOTAL (Units) Can Worker 5 1 5 1 10 Procerus Units: 5 Sites: 1 5 Frontalis 10 2 10 2 20 Temporalis 20 4 20 4 40 Occipitalis 15 3 15 3 30 Cervical PSP 10 2 10 2 20 Trapezius 15 3 15 3 30 Total Units used: 155 Total Units wasted: 45 Prior Therapies Duration of Use Dose Side effect Lexapro, propranolol, imitrex, norco, zofran Elavil TPM Gabapentin Qulipta denied PT presents for third botox, tolerated procedure well without complications. Currently on propranolol 60mg and imitrex for abortive. Will follow in three months for repeat admin. Notes that she had significant benefit for neck pain until it wore off at week 9. She did have 8 straight days of no headaches in February but then they returned. Notes that the imitrex may not be as effective anymore but has been taking them almost daily. Robyn Harris PA-C 05/09/2025 PROMIS Global Health Physical Health Summary Physical health: Fair Everyday physical activity, ability: A little Fatigue: Moderate Pain level: 7 General health: Fair Social activities/roles, ability: Poor Physical Health T-Score 32.4 (Poor) Physical Health Percentile 4 PROMIS [facility] Mental Health Summary Quality of life: Fair Mental health (mood,thinking): Fair Social satisfaction: Fair Emotional problems (anxious,depressed): Sometimes Mental Health T-Score 36.3 (Fair) Mental Health Percentile 9 Percentiles provide an indication of how a patient's score ranks in relation to the [place] general population. > 31st percentile is within normal limits or better *< 31st percentile is at least SD worse than population, which may be clinically relevant < 16th percentile is at least 1 SD worse than population and warrants attention documented in this encounter [facility] 05-03-2025 Telephone encounter Note Patient has been identified by name and date of : yes Patient phones for refill(s): Requested Prescriptions Pending Prescriptions Disp Refills ondansetron orally disintegrating (ZOFRAN ODT) 4 mg disintegrating tablet 20 tablet 1 Sig: Take 1 tablet by mouth every 6 hours as needed for nausea/vomiting. Date of last office visit in primary care: 03/20/2025 Date of next office visit in primary care: 06/19/2025 Please advise. Thank you. Cori Hanson MA. [facility] 05-03-2025 Miscellaneous Notes Patient has been identified by name and date of : yes Patient phones for refill(s): Requested Prescriptions Pending Prescriptions Disp Refills ondansetron orally disintegrating (ZOFRAN ODT) 4 mg disintegrating tablet 20 tablet 1 Sig: Take 1 tablet by mouth every 6 hours as needed for nausea/vomiting. Date of last office visit in primary care: 03/20/2025 Date of next office visit in primary care: 06/19/2025 Please advise. Thank you. Cori Hanson MA. documented in this encounter [facility] 05-03-2025 Telephone encounter Note Patient has been identified by name and date of : yes Patient phones for refill(s): Requested Prescriptions Pending Prescriptions Disp Refills HYDROcodone-acetaminophen (NORCO) 5-325 mg per tablet 60 tablet 0 Sig: Take 1 tablet by mouth every 6 hours as needed for up to 30 days. Date of last office visit in primary care: 03/20/2025 Date of next office visit in primary care: 06/19/25 Please advise. Thank you. Cori Hanson MA. [facility] 05-03-2025 Miscellaneous Notes Patient has been identified by name and date of : yes Patient phones for refill(s): Requested Prescriptions Pending Prescriptions Disp Refills HYDROcodone-acetaminophen (NORCO) 5-325 mg per tablet 60 tablet 0 Sig: Take 1 tablet by mouth every 6 hours as needed for up to 30 days. Date of last office visit in primary care: 03/20/2025 Date of next office visit in primary care: 06/19/25 Please advise. Thank you. Cori Hanson MA. documented in this encounter [facility] 04-19-2025 Note Addended by: ROBYN HARRIS on: 04/19/2025 03:54 PM Modules accepted: Orders [facility] 04-19-2025 Miscellaneous Notes Addended by: ROBYN HARRIS on: 04/19/2025 03:54 PM Modules accepted: Orders Addended by: ROBYN RIVERO on: 04/19/2025 03:17 PM Modules accepted: Orders Botox referral PA placed. Kimmy Tyson LPN Please be informed that the patient under your care, as referenced below, is covered by an insurance plan that necessitates prior authorization. The payer has stipulated that the treatment must be processed through the patient s pharmacy benefits, which requires the medication to be sourced from a Specialty Pharmacy and shipped to your location for administration. We have an approval on file for the drug listed below, however, It is imperative that a prescription be submitted to the Specialty Pharmacy to facilitate the arrangement of the medication schedule and subsequent delivery. Upon receipt of the prescription, the Specialty Pharmacy will conduct a benefits review and will reach out to the patient to discuss any potential [id number] expenses. Your office should advise the patient of this procedure and inform them that they should expect a call to provide consent for delivery to your location. Please notify the patient that this call may appear as Restricted or Unknown on the caller ID. Following the patient s consent, please coordinate the delivery to ensure the medication arrives in time for the next scheduled treatment. Kindly allow 7 to 10 business days for the completion of this process. HCPCS code(s) & drug name(s): J0585 Botox Diagnosis submitted (ICD -10 code & description): G43.E19 (ICD-10-CM) - Intractable chronic migraine with aura and without status migrainosus Patient: ANASTASIA SIMPSON : 1975 DOS: [facility] Specialty Pharmacy Information Name of Specialty Pharmacy [facility] Phone Specialty Pharmacy Fax Thank you for your assistance with this request. Please feel free to contact me if any additional information or clarification is needed. documented in this encounter [facility] 04-19-2025 Note Addended by: ROBYN RIVERO on: 04/19/2025 03:17 PM Modules accepted: Orders [facility] 04-19-2025 Telephone encounter Note Botox referral PA placed. Kimmy Tyson LPN [facility] 04-19-2025 Telephone encounter Note Please be informed that the patient under your care, as referenced below, is covered by an insurance plan that necessitates prior authorization. The payer has stipulated that the treatment must be processed through the patient s pharmacy benefits, which requires the medication to be sourced from a Specialty Pharmacy and shipped to your location for administration. We have an approval on file for the drug listed below, however, It is imperative that a prescription be submitted to the Specialty Pharmacy to facilitate the arrangement of the medication schedule and subsequent delivery. Upon receipt of the prescription, the Specialty Pharmacy will conduct a benefits review and will reach out to the patient to discuss any potential [id number] expenses. Your office should advise the patient of this procedure and inform them that they should expect a call to provide consent for delivery to your location. Please notify the patient that this call may appear as Restricted or Unknown on the caller ID. Following the patient s consent, please coordinate the delivery to ensure the medication arrives in time for the next scheduled treatment. Kindly allow 7 to 10 business days for the completion of this process. HCPCS code(s) & drug name(s): J0585 Botox Diagnosis submitted (ICD -10 code & description): G43.E19 (ICD-10-CM) - Intractable chronic migraine with aura and without status migrainosus Patient: ANASTASIA SIMPSON : 1975 DOS: [facility] Specialty Pharmacy Information Name of Specialty Pharmacy [facility] Phone Specialty Pharmacy Fax Thank you for your assistance with this request. Please feel free to contact me if any additional information or clarification is needed. [facility] 04-10-2025 Telephone encounter Note Message left for patient that referral shows pending authorization but likely due to it takes effect 04/13/25 and old expiring 04/12/25. New appointment needs scheduled under new referral. Kimmy Tyson LPN [facility] 04-10-2025 Miscellaneous Notes Message left for patient that referral shows pending authorization but likely due to it takes effect 04/13/25 and old expiring 04/12/25. New appointment needs scheduled under new referral. Kimmy Tyson LPN Patient calling to check on status of Prior Authorization referral that was submitted on 03/17/25 for Neurology Appt and botox injections with Jaycee LOW. She would like to schedule next appt. Please call patient with an update. Mariel Johnston RN documented in this encounter [facility] 04-07-2025 Telephone encounter Note Patient calling to check on status of Prior Authorization referral that was submitted on 03/17/25 for Neurology Appt and botox injections with Jaycee LOW. She would like to schedule next appt. Please call patient with an update. Mariel Johnston RN [facility] 04-04-2025 Telephone encounter Note Prescription Refill Information The patient has been identified by name and date of : Yes Caregiver verified no other encounters exist for this prescription request: Yes Caregiver confirmed with patient/requestor that no other refills are due, in the near future, with this provider at this time: Yes The last office visit in the department: 03/20/25 Does the patient have a future office visit with this provider/department: Yes, 06/19/25 Requested Prescriptions Pending Prescriptions Disp Refills propranolol ER (INDERAL LA) 60 mg 24 hr capsule 30 capsule 11 Sig: Take 1 capsule by mouth once daily. Chris Bullard LPN April 04, 2025 9:12 AM [facility] 04-04-2025 Miscellaneous Notes Prescription Refill Information The patient has been identified by name and date of : Yes Caregiver verified no other encounters exist for this prescription request: Yes Caregiver confirmed with patient/requestor that no other refills are due, in the near future, with this provider at this time: Yes The last office visit in the department: 03/20/25 Does the patient have a future office visit with this provider/department: Yes, 06/19/25 Requested Prescriptions Pending Prescriptions Disp Refills propranolol ER (INDERAL LA) 60 mg 24 hr capsule 30 capsule 11 Sig: Take 1 capsule by mouth once daily. Chris Bullard LPN April 04, 2025 9:12 AM documented in this encounter [facility] 04-04-2025 Telephone encounter Note Prescription Refill Information The patient has been identified by name and date of : Yes Caregiver verified no other encounters exist for this prescription request: Yes Caregiver confirmed with patient/requestor that no other refills are due, in the near future, with this provider at this time: Yes The last office visit in the department: 03/20/25 Does the patient have a future office visit with this provider/department: Yes, 06/19/25 Requested Prescriptions Pending Prescriptions Disp Refills HYDROcodone-acetaminophen (NORCO) 5-325 mg per tablet 60 tablet 0 Sig: Take 1 tablet by mouth every 6 hours as needed for up to 30 days. Chris Bullard LPN April 04, 2025 9:10 AM [facility] 04-04-2025 Miscellaneous Notes Prescription Refill Information The patient has been identified by name and date of : Yes Caregiver verified no other encounters exist for this prescription request: Yes Caregiver confirmed with patient/requestor that no other refills are due, in the near future, with this provider at this time: Yes The last office visit in the department: 03/20/25 Does the patient have a future office visit with this provider/department: Yes, 06/19/25 Requested Prescriptions Pending Prescriptions Disp Refills HYDROcodone-acetaminophen (NORCO) 5-325 mg per tablet 60 tablet 0 Sig: Take 1 tablet by mouth every 6 hours as needed for up to 30 days. Chris Bullard LPN April 04, 2025 9:10 AM documented in this encounter [facility] 03-20-2025 Note HNO ID: [id number] Author: JACEK SCRUGGS MD Service: ? Author Type: Physician Type: Progress Notes Filed: 03/20/2025 20:06 Note Text: Anastasia Simpson is a 49-year-old female with a history of migraines and chronic pain, presenting for follow-up. HPI Migraine: - Recent episode of diplopia post-colonoscopy on 03/03, resolved after IV fluids in the ED. - Experiencing a prolonged migraine episode lasting several weeks. - Received second Botox treatment on 01/25; noted an 8-day period without migraines following the treatment. - Migraines resumed on Thursday night of last week. - Scheduled for a third Botox treatment in early April; currently in the process of obtaining approval for additional treatments. Chronic Pain: - Pain managed with [place]; Anastasia reports effective control most days. - Pain exacerbated by overexertion. - No increase in medication usage reported. - helps her with her ADLS - Has completed her tox screen - has seen specialists in the past. - no history or misuse or abuse. GERD: - Occasional heartburn, improved with recent medication change. - Avoids spicy foods. Colonoscopy: - Underwent colonoscopy on 03/03. - On a 10-year screening schedule. Dermatology: - Upcoming dermatology appointment next week. - No new skin issues reported. MEDICATIONS: Current Outpatient Medications Medication Sig HYDROcodone-acetaminophen (NORCO) 5-325 mg per tablet Take 1 tablet by mouth every 6 hours as needed for up to 30 days. valACYclovir (VALTREX) 1 gram tablet Take 1 tablet by mouth two times a day. SUMAtriptan (IMITREX) 100 mg tablet Take 1 tablet by mouth once daily as needed for migraine headache (see administration instructions) (may repeat once in 24 hours.). progesterone micronized (PROMETRIUM) 100 mg capsule Take 100 mg by mouth once daily. estradiol (MINIVELLE, VIVELLE-DOT) 0.0375 mg/24 hr patch Apply 1 patch as directed two times a week. ondansetron orally disintegrating (ZOFRAN ODT) 4 mg disintegrating tablet Take 1 tablet by mouth every 6 hours as needed for nausea/vomiting. omeprazole (PRILOSEC) 20 mg capsule Take 1 capsule by mouth daily before breakfast. 1/2 hr before meal. mometasone (ELOCON) 0.1 % cream Apply 1 application to affected area once daily. propranolol ER (INDERAL LA) 60 mg 24 hr capsule Take 1 capsule by mouth once daily. SENNOSIDES 8.6 MG TAB as needed for constipation No current facility-administered medications for this visit. ALLERGIES: ALLERGIES Allergen Reactions Celestone [Betameth* Other: See Comments Cheeks and neck red and hot- felt like she had a fever in top 1/2 of body, other steroids have been ok Codeine GI UPSET, HEART RACES Emgality Pen [Galca* Hives Neurontin [Gabapent* Other: See Comments Extreme dizziness Sulfa (Sulfonamide * UNKNOWN PAST MEDICAL HISTORY Diagnosis Date Basal cell carcinoma 2011, 2016 multiple sites High blood pressure History of colonic polyps Moderate major depression, single episode (HCC) 11/13/2020 Other migraine without status migrainosus, not intractable PMH - PAST MEDICAL HISTORY OF irritable bowel syndrome PMH - PAST MEDICAL HISTORY OF back pain PMH - PAST MEDICAL HISTORY OF Injections L4-L5 by Dr Knox in [place] Primary hypertension PAST SURGICAL HISTORY Procedure Laterality Date COLONOSCOPY FLX DX W/COLLJ SPEC WHEN PFRMD 02/28/2020 Colonoscopy-Dr Bryant ESOPHAGOGASTRODUODENOSCOPY TRANSORAL DIAGNOSTIC 02/28/2020 EGD-Dr Bryant LAPAROSCOPIC CHOLECYSTECTOMY 08/26/2018 Dr. Bryant MOHJanessa TRUNK/ARM/LEG 1ST STAGE 5 BLOCKS multiple BCC PAST SURGICAL HISTORY OF 02/2003 x2 discectomy L4-5 S1 PAST SURGICAL HISTORY OF DANDC PAST SURGICAL HISTORY OF 07/11/2004 L5-S1 anterior lumbar interbody fusion with posterior L5-S1 translaminar facet screw on left side and a facet joint screw on the right side, and this would be a 360-degree fusion PAST SURGICAL HISTORY OF 1999 lasix eye surgery PAST SURGICAL HISTORY OF 2003 wisdom teeth S THERMACHOICE UTERINE BALLOON 01/02/15 Hysteroscopy w/ endometrial ablation FAMILY HISTORY Problem Relation Age of Onset Lipids Mother Headache Mother Ischemic Heart Disease Maternal Grandmother Skin Cancer Maternal Grandmother 60 Ischemic Heart Disease Maternal Grandfather other (Melanoma [Other]) Maternal Grandfather 81 Hypertension Paternal Grandmother all grandparents Breast Cancer Paternal Grandmother 66 Breast Cancer Paternal Aunt 45 bilateral Colon Cancer Paternal Aunt 55 other (Kidney Cancer [Other]) Paternal Aunt 55 Breast Cancer Paternal Aunt 40s Breast Cancer Maternal Aunt 50s Social History Tobacco Use Smoking status: Never Smokeless tobacco: Never Vaping Use Vaping status: Never Used Substance Use Topics Alcohol use: No Drug use: No Reviewed current medications, allergies, past medical history, surgical history, family history and soci (more content not included)... [facility] 03-20-2025 History of Present illness Narrative Anastasia Simpson is a 49-year-old female with a history of migraines and chronic pain, presenting for follow-up. HPI Migraine: - Recent episode of diplopia post-colonoscopy on 03/03, resolved after IV fluids in the ED. - Experiencing a prolonged migraine episode lasting several weeks. - Received second Botox treatment on 01/25; noted an 8-day period without migraines following the treatment. - Migraines resumed on Thursday night of last week. - Scheduled for a third Botox treatment in early April; currently in the process of obtaining approval for additional treatments. Chronic Pain: - Pain managed with [place]; Anastasia reports effective control most days. - Pain exacerbated by overexertion. - No increase in medication usage reported. - helps her with her ADLS - Has completed her tox screen - has seen specialists in the past. - no history or misuse or abuse. GERD: - Occasional heartburn, improved with recent medication change. - Avoids spicy foods. Colonoscopy: - Underwent colonoscopy on 03/03. - On a 10-year screening schedule. Dermatology: - Upcoming dermatology appointment next week. - No new skin issues reported. MEDICATIONS: Current Outpatient Medications Medication Sig HYDROcodone-acetaminophen (NORCO) 5-325 mg per tablet Take 1 tablet by mouth every 6 hours as needed for up to 30 days. valACYclovir (VALTREX) 1 gram tablet Take 1 tablet by mouth two times a day. SUMAtriptan (IMITREX) 100 mg tablet Take 1 tablet by mouth once daily as needed for migraine headache (see administration instructions) (may repeat once in 24 hours.). progesterone micronized (PROMETRIUM) 100 mg capsule Take 100 mg by mouth once daily. estradiol (MINIVELLE, VIVELLE-DOT) 0.0375 mg/24 hr patch Apply 1 patch as directed two times a week. ondansetron orally disintegrating (ZOFRAN ODT) 4 mg disintegrating tablet Take 1 tablet by mouth every 6 hours as needed for nausea/vomiting. omeprazole (PRILOSEC) 20 mg capsule Take 1 capsule by mouth daily before breakfast. 1/2 hr before meal. mometasone (ELOCON) 0.1 % cream Apply 1 application to affected area once daily. propranolol ER (INDERAL LA) 60 mg 24 hr capsule Take 1 capsule by mouth once daily. SENNOSIDES 8.6 MG TAB as needed for constipation No current facility-administered medications for this visit. ALLERGIES: ALLERGIES Allergen Reactions Celestone [Betameth* Other: See Comments Cheeks and neck red and hot- felt like she had a fever in top 1/2 of body, other steroids have been ok Codeine GI UPSET, HEART RACES Emgality Pen [Galca* Hives Neurontin [Gabapent* Other: See Comments Extreme dizziness Sulfa (Sulfonamide * UNKNOWN PAST MEDICAL HISTORY Diagnosis Date Basal cell carcinoma 2011, 2015 multiple sites High blood pressure History of colonic polyps Moderate major depression, single episode (HCC) 11/13/2020 Other migraine without status migrainosus, not intractable PMH - PAST MEDICAL HISTORY OF irritable bowel syndrome PMH - PAST MEDICAL HISTORY OF back pain PMH - PAST MEDICAL HISTORY OF Injections L4-L5 by Dr Knox in [place] Primary hypertension PAST SURGICAL HISTORY Procedure Laterality Date COLONOSCOPY FLX DX W/COLLJ SPEC WHEN PFRMD 02/28/2020 Colonoscopy-Dr Bryant ESOPHAGOGASTRODUODENOSCOPY TRANSORAL DIAGNOSTIC 02/28/2020 EGD-Dr Bryant LAPAROSCOPIC CHOLECYSTECTOMY 08/26/2018 Dr. Bryant MOHS TRUNK/ARM/LEG 1ST STAGE 5 BLOCKS multiple BCC PAST SURGICAL HISTORY OF 02/2003 x2 discectomy L4-5 S1 PAST SURGICAL HISTORY OF D&C PAST SURGICAL HISTORY OF 07/11/2004 L5-S1 anterior lumbar interbody fusion with posterior L5-S1 translaminar facet screw on left side and a facet joint screw on the right side, and this would be a 360-degree fusion PAST SURGICAL HISTORY OF 1999 lasix eye surgery PAST SURGICAL HISTORY OF 2003 wisdom teeth S THERMACHOICE UTERINE BALLOON 01/02/15 Hysteroscopy w/ endometrial ablation FAMILY HISTORY Problem Relation Age of Onset Lipids Mother Headache Mother Ischemic Heart Disease Maternal Grandmother Skin Cancer Maternal Grandmother 60 Ischemic Heart Disease Maternal Grandfather other (Melanoma [Other]) Maternal Grandfather 81 Hypertension Paternal Grandmother all grandparents Breast Cancer Paternal Grandmother 66 Breast Cancer Paternal Aunt 45 bilateral Colon Cancer Paternal Aunt 55 other (Kidney Cancer [Other]) Paternal Aunt 55 Breast Cancer Paternal Aunt 40s Breast Cancer Maternal Aunt 50s Social History Tobacco Use Smoking status: Never Smokeless tobacco: Never Vaping Use Vaping status: Never Used Substance Use Topics Alcohol use: No Drug use: No Reviewed current medications, allergies, past medical history, surgical history, family history and social history today. REVIEW OF SYSTEMS Gastrointestinal: (-) heartburn Musculoskeletal: (+) pain Neurological: (+) headaches, (-) diplopia HEALTH MAINTENANCE: Reviewed health maintenance issues today and recommended the following in detail. Hepatitis C Screening Never done HIV Screening Never done DTaP,Tdap,Td Vaccine(3 - Td or Tdap) due on 07/04/2023 Cervical Cancer Screening due on 08/03/2025 Mammogram Screening due on 08/30/2025 LAB REVIEWED: Labs: (03/03/2025) Laboratory tests: No abnormal findings mentioned. Tox screen (last year): No results discussed. Tests: (03/03/2025) Colonoscopy: No findings discussed. VITALS: BP 102/62 Pulse 88 LMP 02/18/2025 (Exact Date) Last 4 Encounter Wt Readings: Date: Wt: 03/03/2025 67.6 kg (149 lb) 01/25/2025 66.1 kg (145 lb 11.6 oz) 01/23/2025 66.7 kg (147 lb) 01/16/2025 64 kg (141 lb) PHYSICAL EXAMINATION: GENERAL: NAD, alert and oriented. SKIN: Unremarkable, no rash or skin lesions. HEAD: Normocephalic. LUNGS: Clear to auscultation bilaterally, no wheezes/rhonchi/rales. HEART: Regular rate and rhythm, no murmurs. No ectopy. EXTREMITIES: Normal, no deformities, no skin discoloration, no edema. ASSESSMENT AND PLAN 1. Other migraine without status migrainosus, not intractable (G43.809) - Recent episode of diplopia post-colonoscopy on 03/03/2025; resolved by 95% before discharge from the ER. - Differential diagnosis includes a migraine variant. - Patient has been receiving Botox treatments; noted an 8-day period without migraines after the second treatment on January 25. - Scheduled for a third Botox treatment at the beginning of April; approval process for further treatments is ongoing. - Monitor for recurrence of diplopia; advised to report any further episodes. 2. Primary hypertension (I10) - Blood pressure is well-controlled. 3. Basal cell carcinoma (BCC), unspecified site (C44.91) - Follow-up appointment with metallography teacher scheduled for next week. 4. Postlaminectomy syndrome (M96.1) - Pain is managed with Vienna; patient reports adequate control most days. - Completed OARRS report and toxicology screen within the last year. - Signed updated opioid agreement. - Continue current pain management regimen; monitor for any changes in pain levels or medication efficacy. 5. Gastro-esophageal reflux disease without esophagitis (K21.9) - Symptoms well-controlled with current medication; occasional heartburn reported. - Advised to continue avoiding spicy foods. (See patient after visit summary for additional instructions to patient) Jacek Scruggs MD Recording using ambient [employer] software for draft documentation of the visit was discussed with the patient/authorized outside sales representative; all questions welcomed and answered. Patient/authorized outside sales representative agreed to proceed documented in this encounter [facility] 03-20-2025 Instructions Jacek Scruggs MD - 03/20/2025 5:26 PM EDT - Sign your new opioid (controlled substance) agreement today so you can continue Vienna for pain control. - Continue taking Vienna exactly as prescribed; do not increase your dose or share it with others. - Attend your dermatology appointment in one week for your routine skin check. - Keep using your current heartburn medication, which has been helping; you may continue avoiding spicy foods as needed. - If your double vision returns, contact our office right away so we can arrange an welfare specialist evaluation and any necessary imaging. - Plan to return to this clinic in about two months to review your pain management, migraine treatment, and overall progress. documented in this encounter [facility] 03-17-2025 Telephone encounter Note Referral entered. Jaylen Tubbs LPN [facility] 03-17-2025 Miscellaneous Notes Referral entered. Jaylen Tubbs LPN Patient calling to schedule future botox injections with establish neurologist. Currently there is no authorized referral in patient's chart. Please submit prior authorization if provider is wanting patient to continue with botox injections. documented in this encounter [facility] 03-17-2025 Telephone encounter Note Patient calling to schedule future botox injections with establish neurologist. Currently there is no authorized referral in patient's chart. Please submit prior authorization if provider is wanting patient to continue with botox injections. [facility] 03-03-2025 Nurse Note Patient in phase II waking up from anesthesia. Patient states she is having double vision in both eyes and blurry vision in the left eye. Dr. Tello aware. Continuing to monitor patient in phase II. 0816 Dr. Tello at bedside talking to family and patient. Blood sugar 99. 500ml Lactated ringer bolus ordered and running. 0846 Patient states double vision in left eye is slightly better. Bolus completed. 0850 Dr. Tello at patient bedside. Patient agrees to go to the ER. 0900 Report called to to Deniz RN in the ER. [facility] 03-03-2025 Nurse Note Patient in phase II waking up from anesthesia. Patient states she is having double vision in both eyes and blurry vision in the left eye. Dr. Tello aware. Continuing to monitor patient in phase II. 0816 Dr. Tello at bedside talking to family and patient. Blood sugar 99. 500ml Lactated ringer bolus ordered and running. 0846 Patient states double vision in left eye is slightly better. Bolus completed. 0850 Dr. Tello at patient bedside. Patient agrees to go to the ER. 0900 Report called to to Deniz ANDERS in the ER. documented in this encounter [facility] 03-03-2025 History and physical note HISTORY AND PHYSICAL Anastasia Simpson : 1975 REFERRING PHYSICIAN: Jacek [address] [facility] [address] CHIEF COMPLAINT: Patient presents with: Consult: Hx of colonic polyps HPI: Anastasia is a 49 year old female referred for endoscopy. Anastasia notes due for screening colonoscopy- hx of colon polyps (2019). Anastasia denies abdominal pain.. Anastasia denies diarrhea. Anastasia notes constipation. -d/t opiate medication -takes senna with good relief Anastasia denies a change in bowel habits. Anasatsia denies melena. Anastasia denies bright red blood per rectum. Anastasia denies hemorrhoids. Anastasia denies family history of colon issues. Anastasia denies heartburn. Anastasia denies dysphagia. Anastasia denies a history of ulcers/ peptic ulcer disease. Anastasia has a hx of multiple back surgeries- takes norco at night for pain control. Anastasia has undergone prior endoscopy. Last EGD & colonoscopy was 02/[address] Bryant at [facility]. Sedation:MAC EGD Impressions : - Normal esophagus. - Z-line regular, 42 cm from the incisors. No specimens collected. - Gastritis. Biopsied. - Normal examined duodenum. No specimens collected. COLONOSCOPY Impressions : - One 5 mm polyp in the proximal transverse colon, removed with a hot snare. Resected and retrieved. - The entire examined colon is normal. Biopsied. - The examination was otherwise normal on direct and retroflexion views. MICROSCOPIC DIAGNOSIS A. Antrum biopsy: Mild gastritis. See microscopic description and comment. B. Colon, random biopsy: Fragments of colonic mucosa with focal pigment laden macrophages, consistent with melanosis coli. C. Transverse colon polyp, biopsy: Tubular adenoma. H.Pylori negative CURRENT MEDICATIONS Current Outpatient Medications Medication Sig progesterone micronized (PROMETRIUM) 100 mg capsule Take 100 mg by mouth once daily. estradiol (MINIVELLE, VIVELLE-DOT) 0.0375 mg/24 hr patch Apply 1 patch as directed two times a week. ondansetron orally disintegrating (ZOFRAN ODT) 4 mg disintegrating tablet Take 1 tablet by mouth every 6 hours as needed for nausea/vomiting. HYDROcodone-acetaminophen (NORCO) 5-325 mg per tablet Take 1 tablet by mouth every 6 hours as needed for up to 30 days. SUMAtriptan (IMITREX) 100 mg tablet Take 1 tablet by mouth as needed. omeprazole (PRILOSEC) 20 mg capsule Take 1 capsule by mouth daily before breakfast. 1/2 hr before meal. mometasone (ELOCON) 0.1 % cream Apply 1 application to affected area once daily. famotidine (PEPCID) 20 mg tablet Take 1 tablet by mouth at bedtime as needed. valACYclovir (VALTREX) 1 gram tablet Take 1 tablet by mouth two times a day. propranolol ER (INDERAL LA) 60 mg 24 hr capsule Take 1 capsule by mouth once daily. SENNOSIDES 8.6 MG TAB as needed for constipation peg 3350-Electrolytes (GOLYTELY) 236-22.74-6.74 -5.86 gram suspension Take 4,000 mL by mouth one time only for 1 dose. Refer to printed prep instructions from your provider. No current facility-administered medications for this visit. ALLERGIES: Celestone [Betamethasone Sodium Phosphate], Codeine, Emgality Pen [Galcanezumab-Gnlm], Neurontin [Gabapentin], and Sulfa (Sulfonamide Antibiotics) PAST MEDICAL HISTORY PAST MEDICAL HISTORY Diagnosis Date Basal cell carcinoma 2011, 2015 multiple sites High blood pressure History of colonic polyps Moderate major depression, single episode (HCC) 11/13/2020 Other migraine without status migrainosus, not intractable PMH - PAST MEDICAL HISTORY OF irritable bowel syndrome PMH - PAST MEDICAL HISTORY OF back pain PMH - PAST MEDICAL HISTORY OF Injections L4-L5 by Dr Knox in [place] Primary hypertension PAST SURGICAL HISTORY PAST SURGICAL HISTORY Procedure Laterality Date COLONOSCOPY FLX DX W/COLLJ SPEC WHEN PFRMD 02/28/2020 Colonoscopy-Dr Bryant ESOPHAGOGASTRODUODENOSCOPY TRANSORAL DIAGNOSTIC 02/28/2020 EGD-Dr Bryant LAPAROSCOPIC CHOLECYSTECTOMY 08/26/2018 Dr. Bryant MOHJanessa TRUNK/ARM/LEG 1ST STAGE 5 BLOCKS multiple BCC PAST SURGICAL HISTORY OF 02/2003 x2 discectomy L4-5 S1 PAST SURGICAL HISTORY OF D&C PAST SURGICAL HISTORY OF 07/11/2004 L5-S1 anterior lumbar interbody fusion with posterior L5-S1 translaminar facet screw on left side and a facet joint screw on the right side, and this would be a 360-degree fusion PAST SURGICAL HISTORY OF 1999 lasix eye surgery PAST SURGICAL HISTORY OF 2003 wisdom teeth S THERMACHOICE UTERINE BALLOON 01/02/15 Hysteroscopy w/ endometrial ablation FAMILY HISTORY FAMILY HISTORY Problem Relation Age of Onset Lipids Mother Headache Mother Ischemic Heart Disease Maternal Grandmother Skin Cancer Maternal Grandmother 60 Ischemic Heart Disease Maternal Grandfather other (Melanoma [Other]) Maternal Grandfather 81 Hypertension Paternal Grandmother all grandparents Breast Cancer Paternal Grandmother 66 Breast Cancer Paternal Aunt 45 bilateral Colon Cancer Paternal Aunt 55 other (Kidney Cancer [Other]) Paternal Aunt 55 Breast Cancer Paternal Aunt 40s Breast Cancer Maternal Aunt 50s SOCIAL HISTORY Social History Tobacco Use Smoking status: Never Smokeless tobacco: Never Vaping Use Vaping status: Never Used Substance Use Topics Alcohol use: No Drug use: No PHYSICAL EXAMINATION: General: The patient is 49 year old, female well nourished, well hydrated in no acute distress. The patient is oriented to time, place, and person. VITALS: Blood pressure 124/87, pulse 88, temperature 36.6 C (97.8 F), resp. rate 16, height 167.6 cm (5' 6), weight 66.7 kg (147 lb), last menstrual period 07/30/2024, SpO2 97%. Body mass index is 23.73 kg/m . HEENT: Normal cephalic, ataumatic, pupils are equally round, sclera are anicteric, mucous membranes are moist, oropharynx is clear. Neck has no masses, asymmetry or lymphadenopathy. Respiratory: Clear to auscultation and percussion. Normal respiratory excursion and pattern. Cardiac: Examination is regular rate and rhythm. Normal S1/S2 Abdominal exam: Soft, nontender, with no palpable masses. No hepatosplenomegaly. No palpable hernias. Extremities: no clubbing, cyanosis or edema. No adenopathy. LABORATORY VALUES: As Noted RADIOLOGIC STUDIES: As Noted Assessment IMPRESSION: screen for colon cancer, history of colon polyps PLAN: I have reviewed my findings with the surgeon. Will plan for lower endoscopy. We discussed the risks and benefits of the planned endoscopy in terms understandable to the patient. I have informed the patient that complications can occur including failure to complete the endoscopy and perforation. Anastasia had the opportunity to ask questions concerning the planned endoscopy. Anastasia freely consents to surgery. I plan to use Golytely bowel preparation I have explained to the patient the difference between IV conscious sedation and MAC anesthesia - and I have offered either, according to the patient's wishes. I have explained that with IV conscious sedation there is no anesthesia provider available and therefore there is a limitation of the amount of IV medications that can be given and that the patient may wake up in the middle of the procedure and/or experience pain/discomfort during the procedure. Further discussion was done and the patient was given the opportunity to ask questions and all questions were answered. Anastasia chooses MAC anesthesia. Anastasia was counseled that if there are changes in his/her medical condition, to let the office know if surgery should proceed. If there are changes in patient's medical condition from time of this encounter to the day of the procedure that preclude anesthesia, patient may have procedure cancelled for patient's safety. Diagnoses: (Z12.11) Screen for colon cancer (primary encounter diagnosis) (Z86.0100) History of colonic polyps Consultation requested by Dr. Scruggs for an opinion regarding history of colon polyps. My final recommendations will be communicated back to the requesting physician by way of shared Medical record or letter to requesting physician via US mail. Portions of this documentation were copied and pasted from previous office visit notes in order to provide a cohesive continuity of the history. The note has been reviewed and edited and updated as necessary. Quin Mendez APRN.SCHOOL TRANSPORTATION SUPERVISOR UPDATED HISTORY AND PHYSICAL EXAMINATION SERVICE DATE: 03/03/2025 SERVICE TIME: 6:51 AM PHYSICAL EXAM MUST BE COMPLETED ON ADMISSION The History and Physical (completed in the past 30 days) has been reviewed and the patient has been examined. The contents accurately reflect the patient's condition with the following additions or revisions since the H&P was completed. Examination indicates no changes. This H&P can be found in the attached. SIGNATURE: Sage Bryant III, MD PATIENT NAME: Anastasia Simpson DATE: March 03, 2025 TIME: 6:51 AM [facility] 03-03-2025 History and physical note HISTORY AND PHYSICAL Anastasia Simpson : 1975 REFERRING PHYSICIAN: Jacek Scruggs [address] [facility] [address] CHIEF COMPLAINT: Patient presents with: Consult: Hx of colonic polyps HPI: Anastasia is a 49 year old female referred for endoscopy. Anastasia notes due for screening colonoscopy- hx of colon polyps (2019). Anastasia denies abdominal pain.. Anastasia denies diarrhea. Anastasia notes constipation. -d/t opiate medication -takes senna with good relief Anastasia denies a change in bowel habits. Anastasia denies melena. Anastasia denies bright red blood per rectum. Anastasia denies hemorrhoids. Anastasia denies family history of colon issues. Anastasia denies heartburn. Anastasia denies dysphagia. Anastasia denies a history of ulcers/ peptic ulcer disease. Anastasia has a hx of multiple back surgeries- takes norco at night for pain control. Anastasia has undergone prior endoscopy. Last EGD & colonoscopy was 02/[address] Bryant at [facility]. Sedation:MAC EGD Impressions : - Normal esophagus. - Z-line regular, 42 cm from the incisors. No specimens collected. - Gastritis. Biopsied. - Normal examined duodenum. No specimens collected. COLONOSCOPY Impressions : - One 5 mm polyp in the proximal transverse colon, removed with a hot snare. Resected and retrieved. - The entire examined colon is normal. Biopsied. - The examination was otherwise normal on direct and retroflexion views. MICROSCOPIC DIAGNOSIS A. Antrum biopsy: Mild gastritis. See microscopic description and comment. B. Colon, random biopsy: Fragments of colonic mucosa with focal pigment laden macrophages, consistent with melanosis coli. C. Transverse colon polyp, biopsy: Tubular adenoma. H.Pylori negative CURRENT MEDICATIONS Current Outpatient Medications Medication Sig progesterone micronized (PROMETRIUM) 100 mg capsule Take 100 mg by mouth once daily. estradiol (MINIVELLE, VIVELLE-DOT) 0.0375 mg/24 hr patch Apply 1 patch as directed two times a week. ondansetron orally disintegrating (ZOFRAN ODT) 4 mg disintegrating tablet Take 1 tablet by mouth every 6 hours as needed for nausea/vomiting. HYDROcodone-acetaminophen (NORCO) 5-325 mg per tablet Take 1 tablet by mouth every 6 hours as needed for up to 30 days. SUMAtriptan (IMITREX) 100 mg tablet Take 1 tablet by mouth as needed. omeprazole (PRILOSEC) 20 mg capsule Take 1 capsule by mouth daily before breakfast. 1/2 hr before meal. mometasone (ELOCON) 0.1 % cream Apply 1 application to affected area once daily. famotidine (PEPCID) 20 mg tablet Take 1 tablet by mouth at bedtime as needed. valACYclovir (VALTREX) 1 gram tablet Take 1 tablet by mouth two times a day. propranolol ER (INDERAL LA) 60 mg 24 hr capsule Take 1 capsule by mouth once daily. SENNOSIDES 8.6 MG TAB as needed for constipation peg 3350-Electrolytes (GOLYTELY) 236-22.74-6.74 -5.86 gram suspension Take 4,000 mL by mouth one time only for 1 dose. Refer to printed prep instructions from your provider. No current facility-administered medications for this visit. ALLERGIES: Celestone [Betamethasone Sodium Phosphate], Codeine, Emgality Pen [Galcanezumab-Gnlm], Neurontin [Gabapentin], and Sulfa (Sulfonamide Antibiotics) PAST MEDICAL HISTORY PAST MEDICAL HISTORY Diagnosis Date Basal cell carcinoma 2011, 2015 multiple sites High blood pressure History of colonic polyps Moderate major depression, single episode (HCC) 11/13/2020 Other migraine without status migrainosus, not intractable PMH - PAST MEDICAL HISTORY OF irritable bowel syndrome PMH - PAST MEDICAL HISTORY OF back pain PMH - PAST MEDICAL HISTORY OF Injections L4-L5 by Dr Knox in [place] Primary hypertension PAST SURGICAL HISTORY PAST SURGICAL HISTORY Procedure Laterality Date COLONOSCOPY FLX DX W/COLLJ SPEC WHEN PFRMD 02/28/2020 Colonoscopy-Dr Bryant ESOPHAGOGASTRODUODENOSCOPY TRANSORAL DIAGNOSTIC 02/28/2020 EGD-Dr Bryant LAPAROSCOPIC CHOLECYSTECTOMY 08/26/2018 Dr. Bryant MOHJanessa TRUNK/ARM/LEG 1ST STAGE 5 BLOCKS multiple BCC PAST SURGICAL HISTORY OF 02/2003 x2 discectomy L4-5 S1 PAST SURGICAL HISTORY OF D&C PAST SURGICAL HISTORY OF 07/11/2004 L5-S1 anterior lumbar interbody fusion with posterior L5-S1 translaminar facet screw on left side and a facet joint screw on the right side, and this would be a 360-degree fusion PAST SURGICAL HISTORY OF 1999 lasix eye surgery PAST SURGICAL HISTORY OF 2003 wisdom teeth S THERMACHOICE UTERINE BALLOON 01/02/15 Hysteroscopy w/ endometrial ablation FAMILY HISTORY FAMILY HISTORY Problem Relation Age of Onset Lipids Mother Headache Mother Ischemic Heart Disease Maternal Grandmother Skin Cancer Maternal Grandmother 60 Ischemic Heart Disease Maternal Grandfather other (Melanoma [Other]) Maternal Grandfather 81 Hypertension Paternal Grandmother all grandparents Breast Cancer Paternal Grandmother 66 Breast Cancer Paternal Aunt 45 bilateral Colon Cancer Paternal Aunt 55 other (Kidney Cancer [Other]) Paternal Aunt 55 Breast Cancer Paternal Aunt 40s Breast Cancer Maternal Aunt 50s SOCIAL HISTORY Social History Tobacco Use Smoking status: Never Smokeless tobacco: Never Vaping Use Vaping status: Never Used Substance Use Topics Alcohol use: No Drug use: No PHYSICAL EXAMINATION: General: The patient is 49 year old, female well nourished, well hydrated in no acute distress. The patient is oriented to time, place, and person. VITALS: Blood pressure 124/87, pulse 88, temperature 36.6 C (97.8 F), resp. rate 16, height 167.6 cm (5' 6), weight 66.7 kg (147 lb), last menstrual period 07/30/2024, SpO2 97%. Body mass index is 23.73 kg/m . HEENT: Normal cephalic, ataumatic, pupils are equally round, sclera are anicteric, mucous membranes are moist, oropharynx is clear. Neck has no masses, asymmetry or lymphadenopathy. Respiratory: Clear to auscultation and percussion. Normal respiratory excursion and pattern. Cardiac: Examination is regular rate and rhythm. Normal S1/S2 Abdominal exam: Soft, nontender, with no palpable masses. No hepatosplenomegaly. No palpable hernias. Extremities: no clubbing, cyanosis or edema. No adenopathy. LABORATORY VALUES: As Noted RADIOLOGIC STUDIES: As Noted Assessment IMPRESSION: screen for colon cancer, history of colon polyps PLAN: I have reviewed my findings with the surgeon. Will plan for lower endoscopy. We discussed the risks and benefits of the planned endoscopy in terms understandable to the patient. I have informed the patient that complications can occur including failure to complete the endoscopy and perforation. Anastasia had the opportunity to ask questions concerning the planned endoscopy. Anastasia freely consents to surgery. I plan to use Golytely bowel preparation I have explained to the patient the difference between IV conscious sedation and MAC anesthesia - and I have offered either, according to the patient's wishes. I have explained that with IV conscious sedation there is no anesthesia provider available and therefore there is a limitation of the amount of IV medications that can be given and that the patient may wake up in the middle of the procedure and/or experience pain/discomfort during the procedure. Further discussion was done and the patient was given the opportunity to ask questions and all questions were answered. Anastasia chooses MAC anesthesia. Anastasia was counseled that if there are changes in his/her medical condition, to let the office know if surgery should proceed. If there are changes in patient's medical condition from time of this encounter to the day of the procedure that preclude anesthesia, patient may have procedure cancelled for patient's safety. Diagnoses: (Z12.11) Screen for colon cancer (primary encounter diagnosis) (Z86.0100) History of colonic polyps Consultation requested by Dr. Scruggs for an opinion regarding history of colon polyps. My final recommendations will be communicated back to the requesting physician by way of shared Medical record or letter to requesting physician via [place] mail. Portions of this documentation were copied and pasted from previous office visit notes in order to provide a cohesive continuity of the history. The note has been reviewed and edited and updated as necessary. Quin Mendez APRN.SCHOOL TRANSPORTATION SUPERVISOR UPDATED HISTORY AND PHYSICAL EXAMINATION SERVICE DATE: 03/03/2025 SERVICE TIME: 6:51 AM PHYSICAL EXAM MUST BE COMPLETED ON ADMISSION The History and Physical (completed in the past 30 days) has been reviewed and the patient has been examined. The contents accurately reflect the patient's condition with the following additions or revisions since the H&P was completed. Examination indicates no changes. This H&P can be found in the attached. SIGNATURE: Sage Bryant III, MD PATIENT NAME: Anastasia Simpson DATE: March 03, 2025 TIME: 6:51 AM documented in this encounter [facility] 03-02-2025 Telephone encounter Note Prescription Refill Information The patient has been identified by name and date of : Yes Caregiver verified no other encounters exist for this prescription request: Yes Caregiver confirmed with patient/requestor that no other refills are due, in the near future, with this provider at this time: No The last office visit in the department: 01/16/25 Does the patient have a future office visit with this provider/department: Yes Requested Prescriptions Pending Prescriptions Disp Refills valACYclovir (VALTREX) 1 gram tablet 2 tablet 3 Sig: Take 1 tablet by mouth two times a day. Shelli Mckeon MA March 02, 2025 10:23 AM [facility] 03-02-2025 Miscellaneous Notes Prescription Refill Information The patient has been identified by name and date of : Yes Caregiver verified no other encounters exist for this prescription request: Yes Caregiver confirmed with patient/requestor that no other refills are due, in the near future, with this provider at this time: No The last office visit in the department: 01/16/25 Does the patient have a future office visit with this provider/department: Yes Requested Prescriptions Pending Prescriptions Disp Refills valACYclovir (VALTREX) 1 gram tablet 2 tablet 3 Sig: Take 1 tablet by mouth two times a day. Shelli Mckeon MA March 02, 2025 10:23 AM documented in this encounter [facility] 02-15-2025 Telephone encounter Note [facility] calling asking for directions to be clarified on the Sumatriptan rx. One tablet every so many hours and max amount for daily use please. Please advise [facility] 02-15-2025 Miscellaneous Notes [facility] calling asking for directions to be clarified on the Sumatriptan rx. One tablet every so many hours and max amount for daily use please. Please advise documented in this encounter [facility] 02-15-2025 Telephone encounter Note Prescription Refill Information The patient has been identified by name and date of : Yes Caregiver verified no other encounters exist for this prescription request: Yes Caregiver confirmed with patient/requestor that no other refills are due, in the near future, with this provider at this time: Yes The last office visit in the department: Does the patient have a future office visit with this provider/department: Yes Requested Prescriptions Pending Prescriptions Disp Refills SUMAtriptan (IMITREX) 100 mg tablet 9 tablet 3 Sig: Take 1 tablet by mouth as needed. Danitza Mendez LPN February 15, 2025 12:06 PM [facility] 02-15-2025 Miscellaneous Notes Prescription Refill Information The patient has been identified by name and date of : Yes Caregiver verified no other encounters exist for this prescription request: Yes Caregiver confirmed with patient/requestor that no other refills are due, in the near future, with this provider at this time: Yes The last office visit in the department: Does the patient have a future office visit with this provider/department: Yes Requested Prescriptions Pending Prescriptions Disp Refills SUMAtriptan (IMITREX) 100 mg tablet 9 tablet 3 Sig: Take 1 tablet by mouth as needed. Danitza Mendez LPN February 15, 2025 12:06 PM documented in this encounter [facility] 01-25-2025 Note HNO ID: [id number] Author: MALOU BAEZ PA-C Service: ? Author Type: Physician Nurse Tech Type: Progress Notes Filed: 01/25/2025 17:34 Note Text: Round 2, Robyn Harris patient Follow-Up Onabotulinum Toxin A (BotoxTM) for Migraine Indication: Chronic Intractable Migraine Treatment #: 2 Referral Expiration: 04/12/2025 Prior to the initiation of the FIRST treatment with Onabotulinum Toxin A, the patient reported the following average headache frequency over the past 3 MONTHS: Number of moderate-severe migraine days/month: 30 (daily) Number of mild migraine days/month: 0 Number of headache free days/month: 0 (0 headache-free hours) After treatment with Onabotulinum Toxin A: Number of moderate-severe migraine days/month: 30 (daily) Number of mild migraine days/month: 30 (daily) Number of headache free days/month: -30 (-720 headache-free hours) Migraine severity: 0/10 Patient reduction in overall migraine days: No Patient reduction in moderate-severe migraine days: No Patient reduction of headache hours by 100 hours or more: No Side effects: none Wearing off: No The patient has been assessed for disorders which could contribute to breathing or swallowing difficulty, and there is no contraindication with PREEMPT Botox. There is no documented allergic reaction/hypersensitivity to any botulinum toxin and there is no active infection at proposed injection site. HEADACHE SCORES: 07/10/2024 Headache Questions ID Migraine Screener: 3 (Positive) Initial improvement of headache after botox injection at last visit: Not applicable, I did not have a botox injection at my last visit 05/02/2024 01/09/2025 UMAIR - 2/7 SCORES UMAIR-2 Score 0 0 UMAIR-7 Score 1 1 07/10/2024 Migraine Specific QOL - Higher scores indicate better HRQL Role Function-Restrictive Transformed Score (range: 0-100) 45.71 Role Function-Preventive Transformed Score (range: 0-100) 90 Emotional Function Transformed Score (range: 0-100) 66.67 05/02/2024 12/16/2016 09/29/2016 PHQ-9 Score 2 2 6 BP 114/89 (BP Position: Sitting) Pulse 99 Temp 36.6 ?C (97.8 ?F) (Temporal) Wt 66.1 kg (145 lb 11.6 oz) LMP 01/23/2025 (Exact Date) SpO2 99% BMI 23.52 kg/m? Patient name: Anastasia Simpson : 1975 ALLERGIES Allergen Reactions Celestone [Betameth* Other: See Comments Cheeks and neck red and hot- felt like she had a fever in top 1/2 of body, other steroids have been ok Codeine GI UPSET, HEART RACES Emgality Pen [Galca* Hives Neurontin [Gabapent* Other: See Comments Extreme dizziness Sulfa (Sulfonamide * UNKNOWN UNIVERSAL PROTOCOL / SAFETY CHECKLIST Procedure: Onabotulinum toxin A for migraine Informed Consent Consent Obtained: Written [place] Protocol A moment to CARE was completed SIGN IN Personnel directly involved with the procedure wore the appropriate PPE Special Equipment: N/A Patient/Surrogate Stated/Verified: Patient name, Date of , Relevant allergies and Intended procedure TIME OUT No relevant labs, photos, and/or imaging studies were applicable for review. Consent documented and matches the intended procedure No correct side/site applicable for marking and visibility. No medications required for procedure. No fire risk assessment and interventions applicable. No implant(s) inserted. SIGN OUT No specimen collected. Written Consent Obtained: Written LOT #: [id number] Expiration Date: Month: Year: 2026 Second vial: LOT #: [id number] Expiration Date: Month: Year: 2026 Injection Sites Left (Units) Left (Sites) Right (Units) Right (Sites) TOTAL (Units) Can Worker 5 1 5 1 10 Procerus Units: 5 Sites: 1 5 Frontalis 10 2 10 2 20 Temporalis 20 4 20 4 40 Occipitalis 15 3 15 3 30 Cervical PSP 10 2 10 2 20 Trapezius 15 3 15 3 30 Total Units used: 155 Total Units wasted: 45 Prior Therapies Duration of Use Dose Side effect Malou Baez PA-C [facility] 01-25-2025 History of Present illness Narrative Jon 2Robyn patient Follow-Up Onabotulinum Toxin A (BotoxTM) for Migraine Indication: Chronic Intractable Migraine Treatment #: 2 Referral Expiration: 04/12/2025 Prior to the initiation of the FIRST treatment with Onabotulinum Toxin A, the patient reported the following average headache frequency over the past 3 MONTHS: Number of moderate-severe migraine days/month: 30 (daily) Number of mild migraine days/month: 0 Number of headache free days/month: 0 (0 headache-free hours) After treatment with Onabotulinum Toxin A: Number of moderate-severe migraine days/month: 30 (daily) Number of mild migraine days/month: 30 (daily) Number of headache free days/month: -30 (-720 headache-free hours) Migraine severity: 0/10 Patient reduction in overall migraine days: No Patient reduction in moderate-severe migraine days: No Patient reduction of headache hours by 100 hours or more: No Side effects: none Wearing off: No The patient has been assessed for disorders which could contribute to breathing or swallowing difficulty, and there is no contraindication with PREEMPT Botox. There is no documented allergic reaction/hypersensitivity to any botulinum toxin and there is no active infection at proposed injection site. HEADACHE SCORES: 07/10/2024 Headache Questions ID Migraine Screener: 3 (Positive) Initial improvement of headache after botox injection at last visit: Not applicable, I did not have a botox injection at my last visit 05/02/2024 01/09/2025 UMAIR - 2/7 SCORES UMAIR-2 Score 0 0 UMAIR-7 Score 1 1 07/10/2024 Migraine Specific QOL - Higher scores indicate better HRQL Role Function-Restrictive Transformed Score (range: 0-100) 45.71 Role Function-Preventive Transformed Score (range: 0-100) 90 Emotional Function Transformed Score (range: 0-100) 66.67 05/02/2024 12/16/2016 09/29/2016 PHQ-9 Score 2 2 6 BP 114/89 (BP Position: Sitting) Pulse 99 Temp 36.6 C (97.8 F) (Temporal) Wt 66.1 kg (145 lb 11.6 oz) LMP 01/23/2025 (Exact Date) SpO2 99% BMI 23.52 kg/m Patient name: Anastasia Simpson : 1975 ALLERGIES Allergen Reactions Celestone [Betameth* Other: See Comments Cheeks and neck red and hot- felt like she had a fever in top 1/2 of body, other steroids have been ok Codeine GI UPSET, HEART RACES Emgality Pen [Galca* Hives Neurontin [Gabapent* Other: See Comments Extreme dizziness Sulfa (Sulfonamide * UNKNOWN UNIVERSAL PROTOCOL / SAFETY CHECKLIST Procedure: Onabotulinum toxin A for migraine Informed Consent Consent Obtained: Written [place] Protocol A moment to CARE was completed SIGN IN Personnel directly involved with the procedure wore the appropriate PPE Special Equipment: N/A Patient/Surrogate Stated/Verified: Patient name, Date of , Relevant allergies and Intended procedure TIME OUT No relevant labs, photos, and/or imaging studies were applicable for review. Consent documented and matches the intended procedure No correct side/site applicable for marking and visibility. No medications required for procedure. No fire risk assessment and interventions applicable. No implant(s) inserted. SIGN OUT No specimen collected. Written Consent Obtained: Written LOT #: [id number] Expiration Date: Month: : 2026 Second vial: LOT #: [id number] Expiration Date: Month: Year: 2026 Injection Sites Left (Units) Left (Sites) Right (Units) Right (Sites) TOTAL (Units) Can Worker 5 1 5 1 10 Procerus Units: 5 Sites: 1 5 Frontalis 10 2 10 2 20 Temporalis 20 4 20 4 40 Occipitalis 15 3 15 3 30 Cervical PSP 10 2 10 2 20 Trapezius 15 3 15 3 30 Total Units used: 155 Total Units wasted: 45 Prior Therapies Duration of Use Dose Side effect Malou Baez PA-C documented in this encounter [facility] 01-23-2025 History of Present illness Narrative HISTORY AND PHYSICAL Anastasia Simpson : 1975 REFERRING PHYSICIAN: Jacek Scruggs [facility] [address] CHIEF COMPLAINT: Patient presents with: Consult: Hx of colonic polyps HPI: Anastasia is a 49 year old female referred for endoscopy. Anastasia notes due for screening colonoscopy- hx of colon polyps (2019). Anastasia denies abdominal pain.. Anastasia denies diarrhea. Anastasia notes constipation. -d/t opiate medication -takes senna with good relief Anastasia denies a change in bowel habits. Anastasia denies melena. Anastasia denies bright red blood per rectum. Anastasia denies hemorrhoids. Anastasia denies family history of colon issues. Anastasia denies heartburn. Anastasia denies dysphagia. Anastasia denies a history of ulcers/ peptic ulcer disease. Anastasia has a hx of multiple back surgeries- takes norco at night for pain control. Anastasia has undergone prior endoscopy. Last EGD & colonoscopy was 02/[address] Byrant at [facility]. Sedation:MAC EGD Impressions : - Normal esophagus. - Z-line regular, 42 cm from the incisors. No specimens collected. - Gastritis. Biopsied. - Normal examined duodenum. No specimens collected. COLONOSCOPY Impressions : - One 5 mm polyp in the proximal transverse colon, removed with a hot snare. Resected and retrieved. - The entire examined colon is normal. Biopsied. - The examination was otherwise normal on direct and retroflexion views. MICROSCOPIC DIAGNOSIS A. Antrum biopsy: Mild gastritis. See microscopic description and comment. B. Colon, random biopsy: Fragments of colonic mucosa with focal pigment laden macrophages, consistent with melanosis coli. C. Transverse colon polyp, biopsy: Tubular adenoma. H.Pylori negative Current Outpatient Medications Medication Sig progesterone micronized (PROMETRIUM) 100 mg capsule Take 100 mg by mouth once daily. estradiol (MINIVELLE, VIVELLE-DOT) 0.0375 mg/24 hr patch Apply 1 patch as directed two times a week. ondansetron orally disintegrating (ZOFRAN ODT) 4 mg disintegrating tablet Take 1 tablet by mouth every 6 hours as needed for nausea/vomiting. HYDROcodone-acetaminophen (NORCO) 5-325 mg per tablet Take 1 tablet by mouth every 6 hours as needed for up to 30 days. SUMAtriptan (IMITREX) 100 mg tablet Take 1 tablet by mouth as needed. omeprazole (PRILOSEC) 20 mg capsule Take 1 capsule by mouth daily before breakfast. 1/2 hr before meal. mometasone (ELOCON) 0.1 % cream Apply 1 application to affected area once daily. famotidine (PEPCID) 20 mg tablet Take 1 tablet by mouth at bedtime as needed. valACYclovir (VALTREX) 1 gram tablet Take 1 tablet by mouth two times a day. propranolol ER (INDERAL LA) 60 mg 24 hr capsule Take 1 capsule by mouth once daily. SENNOSIDES 8.6 MG TAB as needed for constipation peg 3350-Electrolytes (GOLYTELY) 236-22.74-6.74 -5.86 gram suspension Take 4,000 mL by mouth one time only for 1 dose. Refer to printed prep instructions from your provider. No current facility-administered medications for this visit. ALLERGIES: Celestone [Betamethasone Sodium Phosphate], Codeine, Emgality Pen [Galcanezumab-Gnlm], Neurontin [Gabapentin], and Sulfa (Sulfonamide Antibiotics) PAST MEDICAL HISTORY Diagnosis Date Basal cell carcinoma 2011, 2015 multiple sites High blood pressure History of colonic polyps Moderate major depression, single episode (HCC) 11/13/2020 Other migraine without status migrainosus, not intractable PMH - PAST MEDICAL HISTORY OF irritable bowel syndrome PMH - PAST MEDICAL HISTORY OF back pain PMH - PAST MEDICAL HISTORY OF Injections L4-L5 by Dr Knox in [place] Primary hypertension PAST SURGICAL HISTORY Procedure Laterality Date COLONOSCOPY FLX DX W/COLLJ SPEC WHEN PFRMD 02/28/2020 Colonoscopy-Dr Bryant ESOPHAGOGASTRODUODENOSCOPY TRANSORAL DIAGNOSTIC 02/28/2020 EGD-Dr Bryant LAPAROSCOPIC CHOLECYSTECTOMY 08/26/2018 Dr. Bryant MOHS TRUNK/ARM/LEG 1ST STAGE 5 BLOCKS multiple BCC PAST SURGICAL HISTORY OF 02/2003 x2 discectomy L4-5 S1 PAST SURGICAL HISTORY OF D&C PAST SURGICAL HISTORY OF 07/11/2004 L5-S1 anterior lumbar interbody fusion with posterior L5-S1 translaminar facet screw on left side and a facet joint screw on the right side, and this would be a 360-degree fusion PAST SURGICAL HISTORY OF 1999 lasix eye surgery PAST SURGICAL HISTORY OF 2003 wisdom teeth S THERMACHOICE UTERINE BALLOON 01/02/15 Hysteroscopy w/ endometrial ablation FAMILY HISTORY Problem Relation Age of Onset Lipids Mother Headache Mother Ischemic Heart Disease Maternal Grandmother Skin Cancer Maternal Grandmother 60 Ischemic Heart Disease Maternal Grandfather other (Melanoma [Other]) Maternal Grandfather 81 Hypertension Paternal Grandmother all grandparents Breast Cancer Paternal Grandmother 66 Breast Cancer Paternal Aunt 45 bilateral Colon Cancer Paternal Aunt 55 other (Kidney Cancer [Other]) Paternal Aunt 55 Breast Cancer Paternal Aunt 40s Breast Cancer Maternal Aunt 50s Social History Tobacco Use Smoking status: Never Smokeless tobacco: Never Vaping Use Vaping status: Never Used Substance Use Topics Alcohol use: No Drug use: No PHYSICAL EXAMINATION: General: The patient is 49 year old, female well nourished, well hydrated in no acute distress. The patient is oriented to time, place, and person. VITALS: Blood pressure 124/87, pulse 88, temperature 36.6 C (97.8 F), resp. rate 16, height 167.6 cm (5' 6), weight 66.7 kg (147 lb), last menstrual period 07/30/2024, SpO2 97%. Body mass index is 23.73 kg/m . HEENT: Normal cephalic, ataumatic, pupils are equally round, sclera are anicteric, mucous membranes are moist, oropharynx is clear. Neck has no masses, asymmetry or lymphadenopathy. Respiratory: Clear to auscultation and percussion. Normal respiratory excursion and pattern. Cardiac: Examination is regular rate and rhythm. Normal S1/S2 Abdominal exam: Soft, nontender, with no palpable masses. No hepatosplenomegaly. No palpable hernias. Extremities: no clubbing, cyanosis or edema. No adenopathy. LABORATORY VALUES: As Noted RADIOLOGIC STUDIES: As Noted Assessment IMPRESSION: screen for colon cancer, history of colon polyps PLAN: I have reviewed my findings with the surgeon. Will plan for lower endoscopy. We discussed the risks and benefits of the planned endoscopy in terms understandable to the patient. I have informed the patient that complications can occur including failure to complete the endoscopy and perforation. Anastasia had the opportunity to ask questions concerning the planned endoscopy. Anastasia freely consents to surgery. I plan to use Golytely bowel preparation I have explained to the patient the difference between IV conscious sedation and MAC anesthesia - and I have offered either, according to the patient's wishes. I have explained that with IV conscious sedation there is no anesthesia provider available and therefore there is a limitation of the amount of IV medications that can be given and that the patient may wake up in the middle of the procedure and/or experience pain/discomfort during the procedure. Further discussion was done and the patient was given the opportunity to ask questions and all questions were answered. Anastasia chooses MAC anesthesia. Anastasia was counseled that if there are changes in his/her medical condition, to let the office know if surgery should proceed. If there are changes in patient's medical condition from time of this encounter to the day of the procedure that preclude anesthesia, patient may have procedure cancelled for patient's safety. Diagnoses: (Z12.11) Screen for colon cancer (primary encounter diagnosis) (Z86.0100) History of colonic polyps Consultation requested by Dr. Scruggs for an opinion regarding history of colon polyps. My final recommendations will be communicated back to the requesting physician by way of shared Medical record or letter to requesting physician via US mail. Portions of this documentation were copied and pasted from previous office visit notes in order to provide a cohesive continuity of the history. The note has been reviewed and edited and updated as necessary. Quin Mendez APRN.BOONE documented in this encounter [facility] 01-23-2025 Note HNO ID: [id number] Author: QUIN MENDEZ APRN.CNP Service: ? Author Type: Nurse Practitioner Type: Progress Notes Filed: 01/23/2025 11:52 Note Text: HISTORY AND PHYSICAL Anastasia Simpson : 1975 REFERRING PHYSICIAN: Jacek Abbasi [facility] [address] CHIEF COMPLAINT: Patient presents with: Consult: Hx of colonic polyps HPI: Anastasia is a 49 year old female referred for endoscopy. Anastasia notes due for screening colonoscopy- hx of colon polyps (2019). Anastasia denies abdominal pain.. Anastasia denies diarrhea. Anastasia notes constipation. -d/t opiate medication -takes senna with good relief Anastasia denies a change in bowel habits. Anastasia denies melena. Anastasia denies bright red blood per rectum. Anastasia denies hemorrhoids. Anastasia denies family history of colon issues. Anastasia denies heartburn. Anastasia denies dysphagia. Anastasia denies a history of ulcers/ peptic ulcer disease. Anastasia has a hx of multiple back surgeries- takes norco at night for pain control. Anastasia has undergone prior endoscopy. Last EGD AND colonoscopy was 02/[address] Bryant at [facility]. Sedation:MAC EGD Impressions : - Normal esophagus. - Z-line regular, 42 cm from the incisors. No specimens collected. - Gastritis. Biopsied. - Normal examined duodenum. No specimens collected. COLONOSCOPY Impressions : - One 5 mm polyp in the proximal transverse colon, removed with a hot snare. Resected and retrieved. - The entire examined colon is normal. Biopsied. - The examination was otherwise normal on direct and retroflexion views. MICROSCOPIC DIAGNOSIS A. Antrum biopsy: Mild gastritis. See microscopic description and comment. B. Colon, random biopsy: Fragments of colonic mucosa with focal pigment laden macrophages, consistent with melanosis coli. C. Transverse colon polyp, biopsy: Tubular adenoma. H.Pylori negative Current Outpatient Medications Medication Sig progesterone micronized (PROMETRIUM) 100 mg capsule Take 100 mg by mouth once daily. estradiol (MINIVELLE, VIVELLE-DOT) 0.0375 mg/24 hr patch Apply 1 patch as directed two times a week. ondansetron orally disintegrating (ZOFRAN ODT) 4 mg disintegrating tablet Take 1 tablet by mouth every 6 hours as needed for nausea/vomiting. HYDROcodone-acetaminophen (NORCO) 5-325 mg per tablet Take 1 tablet by mouth every 6 hours as needed for up to 30 days. SUMAtriptan (IMITREX) 100 mg tablet Take 1 tablet by mouth as needed. omeprazole (PRILOSEC) 20 mg capsule Take 1 capsule by mouth daily before breakfast. 1/2 hr before meal. mometasone (ELOCON) 0.1 % cream Apply 1 application to affected area once daily. famotidine (PEPCID) 20 mg tablet Take 1 tablet by mouth at bedtime as needed. valACYclovir (VALTREX) 1 gram tablet Take 1 tablet by mouth two times a day. propranolol ER (INDERAL LA) 60 mg 24 hr capsule Take 1 capsule by mouth once daily. SENNOSIDES 8.6 MG TAB as needed for constipation peg 3350-Electrolytes (GOLYTELY) 236-22.74-6.74 -5.86 gram suspension Take 4,000 mL by mouth one time only for 1 dose. Refer to printed prep instructions from your provider. No current facility-administered medications for this visit. ALLERGIES: Celestone [Betamethasone Sodium Phosphate], Codeine, Emgality Pen [Galcanezumab-Gnlm], Neurontin [Gabapentin], and Sulfa (Sulfonamide Antibiotics) PAST MEDICAL HISTORY Diagnosis Date Basal cell carcinoma 2011, 2016 multiple sites High blood pressure History of colonic polyps Moderate major depression, single episode (HCC) 11/13/2020 Other migraine without status migrainosus, not intractable PMH - PAST MEDICAL HISTORY OF irritable bowel syndrome PMH - PAST MEDICAL HISTORY OF back pain PMH - PAST MEDICAL HISTORY OF Injections L4-L5 by Dr Knox in [place] Primary hypertension PAST SURGICAL HISTORY Procedure Laterality Date COLONOSCOPY FLX DX W/COLLJ SPEC WHEN PFRMD 02/28/2020 Colonoscopy-Dr Bryant ESOPHAGOGASTRODUODENOSCOPY TRANSORAL DIAGNOSTIC 02/28/2020 EGD-Dr Bryant LAPAROSCOPIC CHOLECYSTECTOMY 08/26/2018 Dr. Bryant MOHJanessa TRUNK/ARM/LEG 1ST STAGE 5 BLOCKS multiple BCC PAST SURGICAL HISTORY OF 02/2003 x2 discectomy L4-5 S1 PAST SURGICAL HISTORY OF DANDC PAST SURGICAL HISTORY OF 07/11/2004 L5-S1 anterior lumbar interbody fusion with posterior L5-S1 translaminar facet screw on left side and a facet joint screw on the right side, and this would be a 360-degree fusion PAST SURGICAL HISTORY OF 1999 lasix eye surgery PAST SURGICAL HISTORY OF 2003 wisdom teeth S THERMACHOICE UTERINE BALLOON 01/02/15 Hysteroscopy w/ endometrial ablation FAMILY HISTORY Problem Relation Age of Onset Lipids Mother Headache Mother Ischemic Heart Disease Maternal Grandmother Skin Cancer Maternal Grandmother 60 Ischemic Heart Disease Maternal Grandfather other (Melanoma [Other]) Maternal Grandfather 81 Hypert (more content not included)... [facility] 01-16-2025 Note HNO ID: [id number] Author: JACEK SCRUGGS MD Service: ? Author Type: Physician Type: Progress Notes Filed: 01/16/2025 19:15 Note Text: Patient presents with: Follow Up HPI: Patient presents today for office visit for follow up. Overall doing well. Work is doing well. Emotionally is doing well. Wants to wean off lexapro. Started on estrogen and progesterone. 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 Continues to use pain meds. Has done controlled substance agreement. Tox screens are up to date. Helps with adls. No misuse or abuse. Has seen pain management. Bp is stable. Headaches are so far better since hormones. Note was copied and pasted, without alteration from previous: Chronic pain:oarrs done. Has done controlled substance agreement. Still helps her perform ADLs No misuse or abuse. Has seen pain management. Has been not working quite as well. Discussed if worsens, to pain management. Tox screens done in May No misuse or abuse. Had her first botox treatment for headache. Has not had to use any imtirex. Bp meds are doing well. No chest pain or shortness of breath. Lexapro is working well. Overall is doing well. Will be seeing dermatology in December. Has several skin lesions on skin. New one has central clearing. MEDICATIONS: Current Outpatient Medications Medication Sig progesterone micronized (PROMETRIUM) 100 mg capsule Take 100 mg by mouth once daily. estradiol (MINIVELLE, VIVELLE-DOT) 0.0375 mg/24 hr patch Apply 1 patch as directed two times a week. ondansetron orally disintegrating (ZOFRAN ODT) 4 mg disintegrating tablet Take 1 tablet by mouth every 6 hours as needed for nausea/vomiting. HYDROcodone-acetaminophen (NORCO) 5-325 mg per tablet Take 1 tablet by mouth every 6 hours as needed for up to 30 days. SUMAtriptan (IMITREX) 100 mg tablet Take 1 tablet by mouth as needed. omeprazole (PRILOSEC) 20 mg capsule Take 1 capsule by mouth daily before breakfast. 1/2 hr before meal. mometasone (ELOCON) 0.1 % cream Apply 1 application to affected area once daily. famotidine (PEPCID) 20 mg tablet Take 1 tablet by mouth at bedtime as needed. propranolol ER (INDERAL LA) 60 mg 24 hr capsule Take 1 capsule by mouth once daily. escitalopram oxalate (LEXAPRO) 5 mg tablet Take 1 tablet by mouth once daily. Take 1 tab a day for one week and then increase to 2 tabs a day SENNOSIDES 8.6 MG TAB as needed for constipation valACYclovir (VALTREX) 1 gram tablet Take 1 tablet by mouth two times a day. (Patient taking differently: Take 1,000 mg by mouth as needed (cold sore). BID) No current facility-administered medications for this visit. ALLERGIES: ALLERGIES Allergen Reactions Celestone [Betameth* Other: See Comments Cheeks and neck red and hot- felt like she had a fever in top 1/2 of body, other steroids have been ok Codeine GI UPSET, HEART RACES Emgality Pen [Galca* Hives Neurontin [Gabapent* Other: See Comments Extreme dizziness Sulfa (Sulfonamide * UNKNOWN PAST MEDICAL HISTORY Diagnosis Date Basal cell carcinoma 2011, 2016 multiple sites High blood pressure Moderate major depression, single episode (HCC) 11/13/2020 PMH - PAST MEDICAL HISTORY OF irritable bowel syndrome PMH - PAST MEDICAL HISTORY OF back pain PMH - PAST MEDICAL HISTORY OF Injections L4-L5 by Dr Knox in [place] PAST SURGICAL HISTORY Procedure Laterality Date COLONOSCOPY FLX DX W/COLLJ SPEC WHEN PFRMD 02/28/2020 Colonoscopy-Dr Bryant ESOPHAGOGASTRODUODENOSCOPY TRANSORAL DIAGNOSTIC 02/28/2020 EGD-Dr Bryant LAPAROSCOPIC CHOLECYSTECTOMY 08/26/2018 Dr. Bryant MOHJanessa TRUNK/ARM/LEG 1ST STAGE 5 BLOCKS multiple BCC PAST SURGICAL HISTORY OF 02/2003 x2 discectomy L4-5 S1 PAST SURGICAL HISTORY OF DANDC PAST SURGICAL HISTORY OF 07/11/2004 L5-S1 anterior lumbar interbody fusion with posterior L5-S1 translaminar facet screw on left side and a facet joint screw on the right side, and this would be a 360-degree fusion PAST SURGICAL HISTORY OF 1999 lasix eye surgery PAST SURGICAL HISTORY OF 2003 wisdom teeth S THERMACHOICE UTERINE BALLOON 01/02/15 Hysteroscopy w/ endometrial ablation FAMILY HISTORY Problem Relation Age of Onset Lipids Mother Headache Mother Ischemic Heart Disease Maternal Grandmother Skin Cancer Maternal Grandmother 60 Ischemic Heart Disease Maternal Grandfather other (Melanoma [Other]) Maternal Grandfather 81 Hypertension Paternal Grandmother all grandparents Breast Cancer Paternal Grandmother 66 Breast Cancer Paternal Aunt 45 bilateral Colon Cancer Paternal Aunt 55 other (Kidney Cancer [Other]) Paternal Aunt 55 Breast Cancer Paternal Aunt 40s Breast Cancer Maternal Aunt 50s Social History Tobacco Use Smoking status: Never Smokeless tobacco: Never Vaping Use Vaping status: Never Used Substance Use Topics Alcohol use: No Drug use: No Reviewed current medications, allergies, past medical history, surgical (more content not included)... [facility] 01-16-2025 History of Present illness Narrative Patient presents with: Follow Up HPI: Patient presents today for office visit for follow up. Overall doing well. Work is doing well. Emotionally is doing well. Wants to wean off lexapro. Started on estrogen and progesterone. 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 Continues to use pain meds. Has done controlled substance agreement. Tox screens are up to date. Helps with adls. No misuse or abuse. Has seen pain management. Bp is stable. Headaches are so far better since hormones. Note was copied and pasted, without alteration from previous: Chronic pain:oarrs done. Has done controlled substance agreement. Still helps her perform ADLs No misuse or abuse. Has seen pain management. Has been not working quite as well. Discussed if worsens, to pain management. Tox screens done in May No misuse or abuse. Had her first botox treatment for headache. Has not had to use any imtirex. Bp meds are doing well. No chest pain or shortness of breath. Lexapro is working well. Overall is doing well. Will be seeing dermatology in December. Has several skin lesions on skin. New one has central clearing. MEDICATIONS: Current Outpatient Medications Medication Sig progesterone micronized (PROMETRIUM) 100 mg capsule Take 100 mg by mouth once daily. estradiol (MINIVELLE, VIVELLE-DOT) 0.0375 mg/24 hr patch Apply 1 patch as directed two times a week. ondansetron orally disintegrating (ZOFRAN ODT) 4 mg disintegrating tablet Take 1 tablet by mouth every 6 hours as needed for nausea/vomiting. HYDROcodone-acetaminophen (NORCO) 5-325 mg per tablet Take 1 tablet by mouth every 6 hours as needed for up to 30 days. SUMAtriptan (IMITREX) 100 mg tablet Take 1 tablet by mouth as needed. omeprazole (PRILOSEC) 20 mg capsule Take 1 capsule by mouth daily before breakfast. 1/2 hr before meal. mometasone (ELOCON) 0.1 % cream Apply 1 application to affected area once daily. famotidine (PEPCID) 20 mg tablet Take 1 tablet by mouth at bedtime as needed. propranolol ER (INDERAL LA) 60 mg 24 hr capsule Take 1 capsule by mouth once daily. escitalopram oxalate (LEXAPRO) 5 mg tablet Take 1 tablet by mouth once daily. Take 1 tab a day for one week and then increase to 2 tabs a day SENNOSIDES 8.6 MG TAB as needed for constipation valACYclovir (VALTREX) 1 gram tablet Take 1 tablet by mouth two times a day. (Patient taking differently: Take 1,000 mg by mouth as needed (cold sore). BID) No current facility-administered medications for this visit. ALLERGIES: ALLERGIES Allergen Reactions Celestone [Betameth* Other: See Comments Cheeks and neck red and hot- felt like she had a fever in top 1/2 of body, other steroids have been ok Codeine GI UPSET, HEART RACES Emgality Pen [Galca* Hives Neurontin [Gabapent* Other: See Comments Extreme dizziness Sulfa (Sulfonamide * UNKNOWN PAST MEDICAL HISTORY Diagnosis Date Basal cell carcinoma 2011, 2015 multiple sites High blood pressure Moderate major depression, single episode (HCC) 11/13/2020 PMH - PAST MEDICAL HISTORY OF irritable bowel syndrome PMH - PAST MEDICAL HISTORY OF back pain PMH - PAST MEDICAL HISTORY OF Injections L4-L5 by Dr Knox in [place] PAST SURGICAL HISTORY Procedure Laterality Date COLONOSCOPY FLX DX W/COLLJ SPEC WHEN PFRMD 02/28/2020 Colonoscopy-Dr Bryant ESOPHAGOGASTRODUODENOSCOPY TRANSORAL DIAGNOSTIC 02/28/2020 EGD-Dr Bryatn LAPAROSCOPIC CHOLECYSTECTOMY 08/26/2018 Dr. Bryant MOHS TRUNK/ARM/LEG 1ST STAGE 5 BLOCKS multiple BCC PAST SURGICAL HISTORY OF 02/2003 x2 discectomy L4-5 S1 PAST SURGICAL HISTORY OF D&C PAST SURGICAL HISTORY OF 07/11/2004 L5-S1 anterior lumbar interbody fusion with posterior L5-S1 translaminar facet screw on left side and a facet joint screw on the right side, and this would be a 360-degree fusion PAST SURGICAL HISTORY OF 1999 lasix eye surgery PAST SURGICAL HISTORY OF 2003 wisdom teeth S THERMACHOICE UTERINE BALLOON 01/02/15 Hysteroscopy w/ endometrial ablation FAMILY HISTORY Problem Relation Age of Onset Lipids Mother Headache Mother Ischemic Heart Disease Maternal Grandmother Skin Cancer Maternal Grandmother 60 Ischemic Heart Disease Maternal Grandfather other (Melanoma [Other]) Maternal Grandfather 81 Hypertension Paternal Grandmother all grandparents Breast Cancer Paternal Grandmother 66 Breast Cancer Paternal Aunt 45 bilateral Colon Cancer Paternal Aunt 55 other (Kidney Cancer [Other]) Paternal Aunt 55 Breast Cancer Paternal Aunt 40s Breast Cancer Maternal Aunt 50s Social History Tobacco Use Smoking status: Never Smokeless tobacco: Never Vaping Use Vaping status: Never Used Substance Use Topics Alcohol use: No Drug use: No Reviewed current medications, allergies, past medical history, surgical history, family history and social history today. REVIEW OF SYSTEMS All other reviewed and negative other than HPI. HEALTH MAINTENANCE: Reviewed health maintenance issues today and recommended the following in detail. Colorectal Cancer Screening due on 02/27/2025-had polyp. VITALS: BP 120/82 Pulse 81 Wt 64 kg (141 lb) LMP 07/30/2024 (Approximate) SpO2 100% BMI 22.76 kg/m Last 4 Encounter Wt Readings: Date: Wt: 01/16/2025 64 kg (141 lb) 12/15/2024 65.4 kg (144 lb 3.2 oz) 10/21/2024 66.3 kg (146 lb 4.4 oz) 09/19/2024 64 kg (141 lb) PHYSICAL EXAMINATION: General appearance: Well appearing, alert, in no acute distress, well-hydrated, well nourished. Skin: Skin color, texture, turgor normal, no suspicious rashes or lesions Head: Normocephalic, no masses, lesions, tenderness or abnormalitie Lungs: Lungs clear to auscultation. No wheezing, rhonchi, rales Heart: RRR without murmur, gallop, or rubs. No ectopy Abdomen: Normal abdominal exam, Abdomen soft, non-tender. Bowel sounds normal. No masses, organomegaly ASSESSMENT/PLAN: 1. Primary hypertension - ICD9: 401.9, ICD10: I10 (primary diagnosis) - Controlled 2. History of colonic polyps - ICD9: V12.72, ICD10: Z86.0100 - CONSULT TO GENERAL SURGERY 3. Other migraine without status migrainosus, not intractable - ICD9: 346.80, ICD10: G43.809 - follow progress. 4. Basal cell carcinoma (BCC), unspecified site - ICD9: 173.91, ICD10: C44.91 - follow with derm 5. Anxiety - ICD9: 300.00, ICD10: F41.9 - taper lexapro and stop meds after a week. Jacek Scruggs MD documented in this encounter [facility] 12-22-2024 Telephone encounter Note Looks like this may have been denied when it was sent in on 10/06/24. The patient has been identified by name and date of : Yes Caregiver verified no other encounters exist for this prescription request: Yes Caregiver confirmed with patient/requestor that no other refills are due, in the near future, with this provider at this time: Yes The last office visit in the department: 12/15/2024 Does the patient have a future office visit with this provider/department: Yes 01/16/2025 Requested Prescriptions Pending Prescriptions Disp Refills SUMAtriptan (IMITREX) 100 mg tablet 9 tablet 3 Sig: Take 1 tablet by mouth as needed. Carolina Barr RN December 22, 2024 7:55 PM [facility] 12-22-2024 Miscellaneous Notes Looks like this may have been denied when it was sent in on 10/06/24. The patient has been identified by name and date of : Yes Caregiver verified no other encounters exist for this prescription request: Yes Caregiver confirmed with patient/requestor that no other refills are due, in the near future, with this provider at this time: Yes The last office visit in the department: 12/15/2024 Does the patient have a future office visit with this provider/department: Yes 01/16/2025 Requested Prescriptions Pending Prescriptions Disp Refills SUMAtriptan (IMITREX) 100 mg tablet 9 tablet 3 Sig: Take 1 tablet by mouth as needed. Carolina Barr RN December 22, 2024 7:55 PM documented in this encounter [facility] 12-15-2024 Note HNO ID: [id number] Author: KIMMY TYSON LPN Service: ? Author Type: LICENSED NURSE Type: Progress Notes Filed: 12/15/2024 13:08 Note Text: Tordol 30mg/ml administered IM to right buttock as ordered and patient tolerated well and denied questions or concerns at this time. Kimmy Tyson LPN [facility] 12-15-2024 History of Present illness Narrative Tordol 30mg/ml administered IM to right buttock as ordered and patient tolerated well and denied questions or concerns at this time. Kimmy Tyson LPN This is a 48 year old female who presents today with: Patient presents with: Headache: Has seen neuro for migraines and and been treated with medrol pack. Patient unable to get this again so soon and asking for alternative treatment. Neuro recommended primary care follow up HISTORY OF PRESENT ILLNESS: Anastasia Simpson is a 48 year old female. Patient presents with: Headache: Has seen neuro for migraines and and been treated with medrol pack. Patient unable to get this again so soon and asking for alternative treatment. Neuro recommended primary care follow up Has had migraines for a long time. Having long runs of migraines- one daily. Getting botox Imitrex not last 24 hours. Vision blurry. Neurology told her to come and get a Toradol shot. On propranolol for a long time Did not tolerate Topamax, reaction to Gabapentin Did not tolerate amitriptyline Has both nausea and vomiting Uses Zofran Hives with Emgality PAST MEDICAL HISTORY: PAST MEDICAL HISTORY Diagnosis Date Basal cell carcinoma 2011, 2016 multiple sites High blood pressure Moderate major depression, single episode (HCC) 11/13/2020 PMH - PAST MEDICAL HISTORY OF irritable bowel syndrome PMH - PAST MEDICAL HISTORY OF back pain PMH - PAST MEDICAL HISTORY OF Injections L4-L5 by Dr Knox in [place] PAST SURGICAL HISTORY Procedure Laterality Date COLONOSCOPY FLX DX W/COLLJ SPEC WHEN PFRMD 02/28/2020 Colonoscopy-Dr Bryant ESOPHAGOGASTRODUODENOSCOPY TRANSORAL DIAGNOSTIC 02/28/2020 EGD-Dr Bryant LAPAROSCOPIC CHOLECYSTECTOMY 08/26/2018 Dr. Bryant MOHS TRUNK/ARM/LEG 1ST STAGE 5 BLOCKS multiple BCC PAST SURGICAL HISTORY OF 02/2003 x2 discectomy L4-5 S1 PAST SURGICAL HISTORY OF D&C PAST SURGICAL HISTORY OF 07/11/2004 L5-S1 anterior lumbar interbody fusion with posterior L5-S1 translaminar facet screw on left side and a facet joint screw on the right side, and this would be a 360-degree fusion PAST SURGICAL HISTORY OF 1999 lasix eye surgery PAST SURGICAL HISTORY OF 2003 wisdom teeth S THERMACHOICE UTERINE BALLOON 01/02/15 Hysteroscopy w/ endometrial ablation ALLERGIES Celestone [Betamethasone Sodium Phosphate], Codeine, Emgality Pen [Galcanezumab-Gnlm], Neurontin [Gabapentin], and Sulfa (Sulfonamide Antibiotics) MEDICATIONS Current Outpatient Medications Medication Sig omeprazole (PRILOSEC) 20 mg capsule Take 1 capsule by mouth daily before breakfast. 1/2 hr before meal. HYDROcodone-acetaminophen (NORCO) 5-325 mg per tablet Take 1 tablet by mouth every 6 hours as needed for up to 30 days. mometasone (ELOCON) 0.1 % cream Apply 1 application to affected area once daily. famotidine (PEPCID) 20 mg tablet Take 1 tablet by mouth at bedtime as needed. SUMAtriptan (IMITREX) 100 mg tablet Take 1 tablet (100 mg) by mouth as needed. ondansetron orally disintegrating (ZOFRAN ODT) 4 mg disintegrating tablet Take 1 tablet by mouth every 6 hours as needed for nausea/vomiting. valACYclovir (VALTREX) 1 gram tablet Take 1 tablet by mouth two times a day. (Patient taking differently: Take 1,000 mg by mouth as needed (cold sore). BID) propranolol ER (INDERAL LA) 60 mg 24 hr capsule Take 1 capsule by mouth once daily. escitalopram oxalate (LEXAPRO) 5 mg tablet Take 1 tablet by mouth once daily. Take 1 tab a day for one week and then increase to 2 tabs a day SENNOSIDES 8.6 MG TAB as needed for constipation No current facility-administered medications for this visit. FAMILY HISTORY Problem Relation Age of Onset Lipids Mother Headache Mother Ischemic Heart Disease Maternal Grandmother Skin Cancer Maternal Grandmother 60 Ischemic Heart Disease Maternal Grandfather other (Melanoma [Other]) Maternal Grandfather 81 Hypertension Paternal Grandmother all grandparents Breast Cancer Paternal Grandmother 66 Breast Cancer Paternal Aunt 45 bilateral Colon Cancer Paternal Aunt 55 other (Kidney Cancer [Other]) Paternal Aunt 55 Breast Cancer Paternal Aunt 40s Breast Cancer Maternal Aunt 50s Social History Tobacco Use Smoking status: Never Smokeless tobacco: Never Vaping Use Vaping status: Never Used Substance Use Topics Alcohol use: No Drug use: No EXAM: BP 124/70 Pulse 77 Resp 16 Wt 65.4 kg (144 lb 3.2 oz) LMP 07/30/2024 (Approximate) SpO2 99% BMI 23.27 kg/m PHYSICAL EXAM: Physical Exam Vitals reviewed. Constitutional: Appearance: Normal appearance. HENT: Head: Normocephalic. Cardiovascular: Rate and Rhythm: Normal rate and regular rhythm. Pulses: Normal pulses. Heart sounds: Normal heart sounds. Pulmonary: Effort: Pulmonary effort is normal. Breath sounds: Normal breath sounds. Musculoskeletal: General: Normal range of motion. Comments: Moves all ext. Without difficulty, walks w/o assistive device Skin: General: Skin is warm and dry. Neurological: Mental Status: She is alert and oriented to person, place, and time. Comments: Cranial nerves III-XII intact, no [id number] ataxia Psychiatric: Comments: Bright affect, neatly dressed, good eye contact. LABS: ASSESSMENT/PLAN: 1. Migraine with aura, not intractable, without status migrainosus - ICD9: 346.00, ICD10: G43.109 Acute exacerbation - KETOROLAC 30 MG/ML (1 ML) INJECTION SOLUTION x 1 - Managed by neurology Discussed treatment plan and patient voices understanding. Patient's questions answered appropriately. Medications and potential side effects were discussed and patient voices understanding. Return to the office as scheduled or as needed for worsening/no improvement. Coby Sotelo APRN.CNP documented in this encounter [facility] 12-15-2024 Instructions Coby Sotelo APRN.CNP - 12/15/2024 12:06 PM EDT 1) Toradol 30 mg once 2) See Dr. Scruggs as scheduled documented in this encounter [facility] 12-15-2024 Note HNO ID: [id number] Author: COBY SOTELO APRN.CNP Service: ? Author Type: Nurse Practitioner Type: Progress Notes Filed: 12/15/2024 13:08 Note Text: This is a 48 year old female who presents today with: Patient presents with: Headache: Has seen neuro for migraines and and been treated with medrol pack. Patient unable to get this again so soon and asking for alternative treatment. Neuro recommended primary care follow up HISTORY OF PRESENT ILLNESS: Anastasia Simpson is a 48 year old female. Patient presents with: Headache: Has seen neuro for migraines and and been treated with medrol pack. Patient unable to get this again so soon and asking for alternative treatment. Neuro recommended primary care follow up Has had migraines for a long time. Having long runs of migraines- one daily. Getting botox Imitrex not last 24 hours. Vision blurry. Neurology told her to come and get a Toradol shot. On propranolol for a long time Did not tolerate Topamax, reaction to Gabapentin Did not tolerate amitriptyline Has both nausea and vomiting Uses Zofran Hives with Emgality PAST MEDICAL HISTORY: PAST MEDICAL HISTORY Diagnosis Date Basal cell carcinoma 2011, 2015 multiple sites High blood pressure Moderate major depression, single episode (HCC) 11/13/2020 PMH - PAST MEDICAL HISTORY OF irritable bowel syndrome PMH - PAST MEDICAL HISTORY OF back pain PMH - PAST MEDICAL HISTORY OF Injections L4-L5 by Dr Knox in [place] PAST SURGICAL HISTORY Procedure Laterality Date COLONOSCOPY FLX DX W/COLLJ SPEC WHEN PFRMD 02/28/2020 Colonoscopy-Dr Bryant ESOPHAGOGASTRODUODENOSCOPY TRANSORAL DIAGNOSTIC 02/28/2020 EGD-Dr Bryant LAPAROSCOPIC CHOLECYSTECTOMY 08/26/2018 Dr. Bryant MOHS TRUNK/ARM/LEG 1ST STAGE 5 BLOCKS multiple BCC PAST SURGICAL HISTORY OF 02/2003 x2 discectomy L4-5 S1 PAST SURGICAL HISTORY OF DANDC PAST SURGICAL HISTORY OF 07/11/2004 L5-S1 anterior lumbar interbody fusion with posterior L5-S1 translaminar facet screw on left side and a facet joint screw on the right side, and this would be a 360-degree fusion PAST SURGICAL HISTORY OF 1999 lasix eye surgery PAST SURGICAL HISTORY OF 2003 wisdom teeth S THERMACHOICE UTERINE BALLOON 01/02/15 Hysteroscopy w/ endometrial ablation ALLERGIES Celestone [Betamethasone Sodium Phosphate], Codeine, Emgality Pen [Galcanezumab-Gnlm], Neurontin [Gabapentin], and Sulfa (Sulfonamide Antibiotics) MEDICATIONS Current Outpatient Medications Medication Sig omeprazole (PRILOSEC) 20 mg capsule Take 1 capsule by mouth daily before breakfast. 1/2 hr before meal. HYDROcodone-acetaminophen (NORCO) 5-325 mg per tablet Take 1 tablet by mouth every 6 hours as needed for up to 30 days. mometasone (ELOCON) 0.1 % cream Apply 1 application to affected area once daily. famotidine (PEPCID) 20 mg tablet Take 1 tablet by mouth at bedtime as needed. SUMAtriptan (IMITREX) 100 mg tablet Take 1 tablet (100 mg) by mouth as needed. ondansetron orally disintegrating (ZOFRAN ODT) 4 mg disintegrating tablet Take 1 tablet by mouth every 6 hours as needed for nausea/vomiting. valACYclovir (VALTREX) 1 gram tablet Take 1 tablet by mouth two times a day. (Patient taking differently: Take 1,000 mg by mouth as needed (cold sore). BID) propranolol ER (INDERAL LA) 60 mg 24 hr capsule Take 1 capsule by mouth once daily. escitalopram oxalate (LEXAPRO) 5 mg tablet Take 1 tablet by mouth once daily. Take 1 tab a day for one week and then increase to 2 tabs a day SENNOSIDES 8.6 MG TAB as needed for constipation No current facility-administered medications for this visit. FAMILY HISTORY Problem Relation Age of Onset Lipids Mother Headache Mother Ischemic Heart Disease Maternal Grandmother Skin Cancer Maternal Grandmother 60 Ischemic Heart Disease Maternal Grandfather other (Melanoma [Other]) Maternal Grandfather 81 Hypertension Paternal Grandmother all grandparents Breast Cancer Paternal Grandmother 66 Breast Cancer Paternal Aunt 45 bilateral Colon Cancer Paternal Aunt 55 other (Kidney Cancer [Other]) Paternal Aunt 55 Breast Cancer Paternal Aunt 40s Breast Cancer Maternal Aunt 50s Social History Tobacco Use Smoking status: Never Smokeless tobacco: Never Vaping Use Vaping status: Never Used Substance Use Topics Alcohol use: No Drug use: No EXAM: BP 124/70 Pulse 77 Resp 16 Wt 65.4 kg (144 lb 3.2 oz) LMP 07/30/2024 (Approximate) SpO2 99% BMI 23.27 kg/m? PHYSICAL EXAM: Physical Exam Vitals reviewed. Constitutional: Appearance: Normal appearance. HENT: Head: Normocephalic. Cardiovascular: Rate and Rhythm: Normal rate and regular rhythm. Pulses: Normal pulses. Heart sounds: Normal heart sounds. Pulmonary: Effort: Pulmonary effort is normal. Breath sounds: Normal breath sounds. Musculoskeletal: General: Normal range of motion. Comments: Moves all ext. Wit (more content not included)... [facility] 12-12-2024 Telephone encounter Note Prescription Refill Information The patient has been identified by name and date of : Yes Caregiver verified no other encounters exist for this prescription request: Yes Caregiver confirmed with patient/requestor that no other refills are due, in the near future, with this provider at this time: Yes The last office visit in the department: 11/14/24 Does the patient have a future office visit with this provider/department: Yes, 01/16/25 Requested Prescriptions Pending Prescriptions Disp Refills omeprazole (PRILOSEC) 20 mg capsule 90 capsule 3 Sig: Take 1 capsule by mouth daily before breakfast. 1/2 hr before meal. HYDROcodone-acetaminophen (NORCO) 5-325 mg per tablet 60 tablet 0 Sig: Take 1 tablet by mouth every 6 hours as needed for up to 30 days. Patient Comment: Good morning! At my last appointment an Rx for Famotidine was sent in. I realized this is the medicine I was taking originally for my stomach but it was not effective so we switched to the Omeprazole. If you can refill the Omeprazole that would be great. Thank you! Chris Bullard LPN December 12, 2024 1:44 PM [facility] 12-12-2024 Miscellaneous Notes Prescription Refill Information The patient has been identified by name and date of : Yes Caregiver verified no other encounters exist for this prescription request: Yes Caregiver confirmed with patient/requestor that no other refills are due, in the near future, with this provider at this time: Yes The last office visit in the department: 11/14/24 Does the patient have a future office visit with this provider/department: Yes, 01/16/25 Requested Prescriptions Pending Prescriptions Disp Refills omeprazole (PRILOSEC) 20 mg capsule 90 capsule 3 Sig: Take 1 capsule by mouth daily before breakfast. 1/2 hr before meal. HYDROcodone-acetaminophen (NORCO) 5-325 mg per tablet 60 tablet 0 Sig: Take 1 tablet by mouth every 6 hours as needed for up to 30 days. Patient Comment: Good morning! At my last appointment an Rx for Famotidine was sent in. I realized this is the medicine I was taking originally for my stomach but it was not effective so we switched to the Omeprazole. If you can refill the Omeprazole that would be great. Thank you! Chris Bullard LPN December 12, 2024 1:44 PM documented in this encounter [facility] 11-14-2024 Note HNO ID: [id number] Author: JACEK SCRUGGS MD Service: ? Author Type: Physician Type: Progress Notes Filed: 11/14/2024 18:15 Note Text: Patient presents with: Follow Up HPI: Patient presents today for office visit for follow up. Chronic pain:oarrs done. Has done controlled substance agreement. Still helps her perform ADLs No misuse or abuse. Has seen pain management. Has been not working quite as well. Discussed if worsens, to pain management. Tox screens done in May No misuse or abuse. Had her first botox treatment for headache. Has not had to use any imtirex. Bp meds are doing well. No chest pain or shortness of breath. Lexapro is working well. Overall is doing well. Will be seeing dermatology in December. Has several skin lesions on skin. New one has central clearing. MEDICATIONS: Current Outpatient Medications Medication Sig HYDROcodone-acetaminophen (NORCO) 5-325 mg per tablet Take 1 tablet by mouth every 6 hours as needed for up to 31 days. SUMAtriptan (IMITREX) 100 mg tablet Take 1 tablet (100 mg) by mouth as needed. ondansetron orally disintegrating (ZOFRAN ODT) 4 mg disintegrating tablet Take 1 tablet by mouth every 6 hours as needed for nausea/vomiting. omeprazole (PRILOSEC) 20 mg capsule Take 1 capsule by mouth daily before breakfast. 1/2 hr before meal. valACYclovir (VALTREX) 1 gram tablet Take 1 tablet by mouth two times a day. (Patient taking differently: Take 1,000 mg by mouth as needed (cold sore). BID) propranolol ER (INDERAL LA) 60 mg 24 hr capsule Take 1 capsule by mouth once daily. escitalopram oxalate (LEXAPRO) 5 mg tablet Take 1 tablet by mouth once daily. Take 1 tab a day for one week and then increase to 2 tabs a day SENNOSIDES 8.6 MG TAB as needed for constipation No current facility-administered medications for this visit. ALLERGIES: ALLERGIES Allergen Reactions Celestone [Betameth* Other: See Comments Cheeks and neck red and hot- felt like she had a fever in top 1/2 of body, other steroids have been ok Codeine GI UPSET, HEART RACES Emgality Pen [Galca* Hives Neurontin [Gabapent* Other: See Comments Extreme dizziness Sulfa (Sulfonamide * UNKNOWN PAST MEDICAL HISTORY Diagnosis Date Basal cell carcinoma 2011, 2015 multiple sites High blood pressure Moderate major depression, single episode (HCC) 11/13/2020 PMH - PAST MEDICAL HISTORY OF irritable bowel syndrome PMH - PAST MEDICAL HISTORY OF back pain PMH - PAST MEDICAL HISTORY OF Injections L4-L5 by Dr Knox in [place] PAST SURGICAL HISTORY Procedure Laterality Date COLONOSCOPY FLX DX W/COLLJ SPEC WHEN PFRMD 02/28/2020 Colonoscopy-Dr Bryant ESOPHAGOGASTRODUODENOSCOPY TRANSORAL DIAGNOSTIC 02/28/2020 EGD-Dr Bryant LAPAROSCOPIC CHOLECYSTECTOMY 08/26/2018 Dr. Bryant MOHS TRUNK/ARM/LEG 1ST STAGE 5 BLOCKS multiple BCC PAST SURGICAL HISTORY OF 02/2003 x2 discectomy L4-5 S1 PAST SURGICAL HISTORY OF DANDC PAST SURGICAL HISTORY OF 07/11/2004 L5-S1 anterior lumbar interbody fusion with posterior L5-S1 translaminar facet screw on left side and a facet joint screw on the right side, and this would be a 360-degree fusion PAST SURGICAL HISTORY OF 1999 lasix eye surgery PAST SURGICAL HISTORY OF 2003 wisdom teeth S THERMACHOICE UTERINE BALLOON 01/02/15 Hysteroscopy w/ endometrial ablation FAMILY HISTORY Problem Relation Age of Onset Lipids Mother Headache Mother Ischemic Heart Disease Maternal Grandmother Skin Cancer Maternal Grandmother 60 Ischemic Heart Disease Maternal Grandfather other (Melanoma [Other]) Maternal Grandfather 81 Hypertension Paternal Grandmother all grandparents Breast Cancer Paternal Grandmother 66 Breast Cancer Paternal Aunt 45 bilateral Colon Cancer Paternal Aunt 55 other (Kidney Cancer [Other]) Paternal Aunt 55 Breast Cancer Paternal Aunt 40s Breast Cancer Maternal Aunt 50s Social History Tobacco Use Smoking status: Never Smokeless tobacco: Never Vaping Use Vaping status: Never Used Substance Use Topics Alcohol use: No Drug use: No Reviewed current medications, allergies, past medical history, surgical history, family history and social history today. REVIEW OF SYSTEMS All other reviewed and negative other than HPI. HEALTH MAINTENANCE: Reviewed health maintenance issues today and recommended the following in detail. BP Controlled (<130/80) Never done VITALS: BP 128/88 Pulse 90 LMP 07/30/2024 (Approximate) SpO2 100% Last 4 Encounter Wt Readings: Date: Wt: 10/21/2024 66.3 kg (146 lb 4.4 oz) 09/19/2024 64 kg (141 lb) 08/03/2024 64 kg (141 lb) 07/28/2024 64 kg (141 lb 1.5 oz) PHYSICAL EXAMINATION: General appearance: Well appearing, alert, in no acute distress, well-hydrated, well nourished. Skin: neck lesion appears fungal like. Will use otc antifungal lesin. Head: Normocephalic, no masses, lesions, tenderness or abnormalities Lungs: Lungs clear (more content not included)... [facility] 11-14-2024 History of Present illness Narrative Patient presents with: Follow Up HPI: Patient presents today for office visit for follow up. Chronic pain:oarrs done. Has done controlled substance agreement. Still helps her perform ADLs No misuse or abuse. Has seen pain management. Has been not working quite as well. Discussed if worsens, to pain management. Tox screens done in May No misuse or abuse. Had her first botox treatment for headache. Has not had to use any imtirex. Bp meds are doing well. No chest pain or shortness of breath. Lexapro is working well. Overall is doing well. Will be seeing dermatology in December. Has several skin lesions on skin. New one has central clearing. MEDICATIONS: Current Outpatient Medications Medication Sig HYDROcodone-acetaminophen (NORCO) 5-325 mg per tablet Take 1 tablet by mouth every 6 hours as needed for up to 31 days. SUMAtriptan (IMITREX) 100 mg tablet Take 1 tablet (100 mg) by mouth as needed. ondansetron orally disintegrating (ZOFRAN ODT) 4 mg disintegrating tablet Take 1 tablet by mouth every 6 hours as needed for nausea/vomiting. omeprazole (PRILOSEC) 20 mg capsule Take 1 capsule by mouth daily before breakfast. 1/2 hr before meal. valACYclovir (VALTREX) 1 gram tablet Take 1 tablet by mouth two times a day. (Patient taking differently: Take 1,000 mg by mouth as needed (cold sore). BID) propranolol ER (INDERAL LA) 60 mg 24 hr capsule Take 1 capsule by mouth once daily. escitalopram oxalate (LEXAPRO) 5 mg tablet Take 1 tablet by mouth once daily. Take 1 tab a day for one week and then increase to 2 tabs a day SENNOSIDES 8.6 MG TAB as needed for constipation No current facility-administered medications for this visit. ALLERGIES: ALLERGIES Allergen Reactions Celestone [Betameth* Other: See Comments Cheeks and neck red and hot- felt like she had a fever in top 1/2 of body, other steroids have been ok Codeine GI UPSET, HEART RACES Emgality Pen [Galca* Hives Neurontin [Gabapent* Other: See Comments Extreme dizziness Sulfa (Sulfonamide * UNKNOWN PAST MEDICAL HISTORY Diagnosis Date Basal cell carcinoma 2011, 2015 multiple sites High blood pressure Moderate major depression, single episode (HCC) 11/13/2020 PMH - PAST MEDICAL HISTORY OF irritable bowel syndrome PMH - PAST MEDICAL HISTORY OF back pain PMH - PAST MEDICAL HISTORY OF Injections L4-L5 by Dr Knox in [place] PAST SURGICAL HISTORY Procedure Laterality Date COLONOSCOPY FLX DX W/COLLJ SPEC WHEN PFRMD 02/28/2020 Colonoscopy-Dr Bryant ESOPHAGOGASTRODUODENOSCOPY TRANSORAL DIAGNOSTIC 02/28/2020 EGD-Dr Bryant LAPAROSCOPIC CHOLECYSTECTOMY 08/26/2018 Dr. Bryant MOHS TRUNK/ARM/LEG 1ST STAGE 5 BLOCKS multiple BCC PAST SURGICAL HISTORY OF 02/2003 x2 discectomy L4-5 S1 PAST SURGICAL HISTORY OF D&C PAST SURGICAL HISTORY OF 07/11/2004 L5-S1 anterior lumbar interbody fusion with posterior L5-S1 translaminar facet screw on left side and a facet joint screw on the right side, and this would be a 360-degree fusion PAST SURGICAL HISTORY OF 1999 lasix eye surgery PAST SURGICAL HISTORY OF 2003 wisdom teeth S THERMACHOICE UTERINE BALLOON 01/02/15 Hysteroscopy w/ endometrial ablation FAMILY HISTORY Problem Relation Age of Onset Lipids Mother Headache Mother Ischemic Heart Disease Maternal Grandmother Skin Cancer Maternal Grandmother 60 Ischemic Heart Disease Maternal Grandfather other (Melanoma [Other]) Maternal Grandfather 81 Hypertension Paternal Grandmother all grandparents Breast Cancer Paternal Grandmother 66 Breast Cancer Paternal Aunt 45 bilateral Colon Cancer Paternal Aunt 55 other (Kidney Cancer [Other]) Paternal Aunt 55 Breast Cancer Paternal Aunt 40s Breast Cancer Maternal Aunt 50s Social History Tobacco Use Smoking status: Never Smokeless tobacco: Never Vaping Use Vaping status: Never Used Substance Use Topics Alcohol use: No Drug use: No Reviewed current medications, allergies, past medical history, surgical history, family history and social history today. REVIEW OF SYSTEMS All other reviewed and negative other than HPI. HEALTH MAINTENANCE: Reviewed health maintenance issues today and recommended the following in detail. BP Controlled (<130/80) Never done VITALS: BP 128/88 Pulse 90 LMP 07/30/2024 (Approximate) SpO2 100% Last 4 Encounter Wt Readings: Date: Wt: 10/21/2024 66.3 kg (146 lb 4.4 oz) 09/19/2024 64 kg (141 lb) 08/03/2024 64 kg (141 lb) 07/28/2024 64 kg (141 lb 1.5 oz) PHYSICAL EXAMINATION: General appearance: Well appearing, alert, in no acute distress, well-hydrated, well nourished. Skin: neck lesion appears fungal like. Will use otc antifungal lesin. Head: Normocephalic, no masses, lesions, tenderness or abnormalities Lungs: Lungs clear to auscultation. No wheezing, rhonchi, rales Heart: RRR without murmur, gallop, or rubs. No ectopy Abdomen: Normal abdominal exam, Abdomen soft, non-tender. Bowel sounds normal. No masses, organomegaly ASSESSMENT/PLAN: 1. Primary hypertension - ICD9: 401.9, ICD10: I10 (primary diagnosis) - stable. 2. Basal cell carcinoma (BCC), unspecified site - ICD9: 173.91, ICD10: C44.91 - per derm. 3. Other migraine without status migrainosus, not intractable - ICD9: 346.80, ICD10: G43.809 - doing well. 4. Postlaminectomy syndrome - ICD9: 722.80, ICD10: M96.1 - continue meds. 5. Acute left-sided thoracic back pain - ICD9: 724.1, ICD10: M54.6 - stable. 6. Anxiety - ICD9: 300.00, ICD10: F41.9 - continue to follow 7. DDD (degenerative disc disease), lumbar - ICD9: 722.52, ICD10: M51.369 - Discussed risks and benefits of new medication with the patient. Advised them to call if any side effects or questions. - HYDROCODONE 5 MG-ACETAMINOPHEN 325 MG TABLET Jacek Scruggs RTO in two months and prn. documented in this encounter [facility] 10-21-2024 Instructions Robyn Harris PA-C - 10/21/2024 3:40 PM EST Botox Home Instruction: Instruction after botox injection: - If you have any pain or swelling use ice, 20 min on and 20 min off. Do not rub or massage the area for 48 hrs. - If you have any neck stiffness, you may use heat and do stretching exercises. - This should improve over the next 5 days. - If it does not, call our office for further instructions. documented in this encounter [facility] 10-21-2024 Note HNO ID: [id number] Author: ROBYN HARRIS PA-C Service: ? Author Type: Physician Nurse Tech Type: Progress Notes Filed: 10/21/2024 15:56 Note Text: New Onabotulinum Toxin A (BotoxTM) for Migraine Indication: Chronic Intractable Migraine Treatment #: 1 Referral Expiration: 04/12/2025 Number of moderate-severe migraine days/month: 30 (daily) Number of mild migraine days/month: 0 Number of headache free days/month: 0 (0 headache-free hours) Migraine severity: 10/10 The patient has been assessed for disorders which could contribute to breathing or swallowing difficulty, and there is no contraindication with PREEMPT Botox. There is no documented allergic reaction/hypersensitivity to any botulinum toxin and there is no active infection at proposed injection site. HEADACHE SCORES: 07/10/2024 Headache Questions ID Migraine Screener: 3 (Positive) Initial improvement of headache after botox injection at last visit: Not applicable, I did not have a botox injection at my last visit 05/02/2024 UMAIR - 2/7 SCORES UMAIR-2 Score 0 UMAIR-7 Score 1 07/10/2024 Migraine Specific QOL - Higher scores indicate better HRQL Role Function-Restrictive Transformed Score (range: 0-100) 45.71 Role Function-Preventive Transformed Score (range: 0-100) 90 Emotional Function Transformed Score (range: 0-100) 66.67 05/02/2024 12/16/2016 09/29/2016 PHQ-9 Score 2 2 6 BP 129/91 (BP Site: Left Arm, BP Position: Sitting, BP Cuff Size: Regular Adult) Pulse 63 Resp 16 Wt 66.3 kg (146 lb 4.4 oz) LMP 07/30/2024 (Approximate) SpO2 100% BMI 23.61 kg/m? Patient name: Anastasia Simpson : 1975 ALLERGIES Allergen Reactions - Celestone [Betameth* Other: See Comments Cheeks and neck red and hot- felt like she had a fever in top 1/2 of body, other steroids have been ok - Codeine GI UPSET, HEART RACES - Emgality Pen [Galca* Hives - Neurontin [Gabapent* Other: See Comments Extreme dizziness - Sulfa (Sulfonamide * UNKNOWN UNIVERSAL PROTOCOL / SAFETY CHECKLIST Procedure: Onabotulinum toxin A for migraine Informed Consent Consent Obtained: Written [place] Protocol A moment to CARE was completed SIGN IN Personnel directly involved with the procedure wore the appropriate PPE Special Equipment: N/A Patient/Surrogate Stated/Verified: Patient name, Date of , Relevant allergies and Intended procedure TIME OUT Intended patient and procedure match the source document(s) Consent documented and matches the intended procedure No relevant labs, photos, and/or imaging studies were applicable for review. No correct side/site applicable for marking and visibility. No medications required for procedure. No fire risk assessment and interventions applicable. No implant(s) inserted. SIGN OUT No specimen collected. No instruments, equipment or retained foreign bodies applicable. Post-procedure follow-up management communicated and Plan of Care Visit completed when applicable Written Consent Obtained: Written LOT #: [id number] Expiration Date: Month: Year: 2026 Second vial: LOT #: [id number] Expiration Date: Month: 4 Year: 2026 Injection Sites Left (Units) Left (Sites) Right (Units) Right (Sites) TOTAL (Units) Can Worker 5 1 5 1 10 Procerus Units: 5 Sites: 1 5 Frontalis 10 2 10 2 20 Temporalis 20 4 20 4 40 Occipitalis 15 3 15 3 30 Cervical PSP 10 2 10 2 20 Trapezius 15 3 15 3 30 Total Units used: 155 Total Units wasted: 45 Prior Therapies Duration of Use Dose Side effect Lexapro, propranolol, imitrex, norco, zofran Elavil TPM Gabapentin Qulipta denied PT presents for first botox, tolerated procedure well without complications. Currently on propranolol 60mg and imitrex for abortive. Will follow in three months for repeat admin. Robyn Harris PA-C [facility] 10-21-2024 History of Present illness Narrative New Onabotulinum Toxin A (BotoxTM) for Migraine Indication: Chronic Intractable Migraine Treatment #: 1 Referral Expiration: 04/12/2025 Number of moderate-severe migraine days/month: 30 (daily) Number of mild migraine days/month: 0 Number of headache free days/month: 0 (0 headache-free hours) Migraine severity: 06/30 The patient has been assessed for disorders which could contribute to breathing or swallowing difficulty, and there is no contraindication with PREEMPT Botox. There is no documented allergic reaction/hypersensitivity to any botulinum toxin and there is no active infection at proposed injection site. HEADACHE SCORES: 07/10/2024 Headache Questions ID Migraine Screener: 3 (Positive) Initial improvement of headache after botox injection at last visit: Not applicable, I did not have a botox injection at my last visit 05/02/2024 UMAIR - 2/7 SCORES UMAIR-2 Score 0 UMAIR-7 Score 1 07/10/2024 Migraine Specific QOL - Higher scores indicate better HRQL Role Function-Restrictive Transformed Score (range: 0-100) 45.71 Role Function-Preventive Transformed Score (range: 0-100) 90 Emotional Function Transformed Score (range: 0-100) 66.67 05/02/2024 12/16/2016 09/29/2016 PHQ-9 Score 2 2 6 BP 129/91 (BP Site: Left Arm, BP Position: Sitting, BP Cuff Size: Regular Adult) Pulse 63 Resp 16 Wt 66.3 kg (146 lb 4.4 oz) LMP 07/30/2024 (Approximate) SpO2 100% BMI 23.61 kg/m Patient name: Anastasia Simpson : 1975 ALLERGIES Allergen Reactions Celestone [Betameth* Other: See Comments Cheeks and neck red and hot- felt like she had a fever in top 1/2 of body, other steroids have been ok Codeine GI UPSET, HEART RACES Emgality Pen [Galca* Hives Neurontin [Gabapent* Other: See Comments Extreme dizziness Sulfa (Sulfonamide * UNKNOWN UNIVERSAL PROTOCOL / SAFETY CHECKLIST Procedure: Onabotulinum toxin A for migraine Informed Consent Consent Obtained: Written [place] Protocol A moment to CARE was completed SIGN IN Personnel directly involved with the procedure wore the appropriate PPE Special Equipment: N/A Patient/Surrogate Stated/Verified: Patient name, Date of , Relevant allergies and Intended procedure TIME OUT Intended patient and procedure match the source document(s) Consent documented and matches the intended procedure No relevant labs, photos, and/or imaging studies were applicable for review. No correct side/site applicable for marking and visibility. No medications required for procedure. No fire risk assessment and interventions applicable. No implant(s) inserted. SIGN OUT No specimen collected. No instruments, equipment or retained foreign bodies applicable. Post-procedure follow-up management communicated and Plan of Care Visit completed when applicable Written Consent Obtained: Written LOT #: [id number] Expiration Date: Month: Year: 2026 Second vial: LOT #: [id number] Expiration Date: Month: Year: 2026 Injection Sites Left (Units) Left (Sites) Right (Units) Right (Sites) TOTAL (Units) Can Worker 5 1 5 1 10 Procerus Units: 5 Sites: 1 5 Frontalis 10 2 10 2 20 Temporalis 20 4 20 4 40 Occipitalis 15 3 15 3 30 Cervical PSP 10 2 10 2 20 Trapezius 15 3 15 3 30 Total Units used: 155 Total Units wasted: 45 Prior Therapies Duration of Use Dose Side effect Lexapro, propranolol, imitrex, norco, zofran Elavil TPM Gabapentin Qulipta denied PT presents for first botox, tolerated procedure well without complications. Currently on propranolol 60mg and imitrex for abortive. Will follow in three months for repeat admin. Robyn Harris PA-C documented in this encounter [facility] 10-21-2024 Telephone encounter Note Prescription Refill Information The patient has been identified by name and date of : Yes Caregiver verified no other encounters exist for this prescription request: Yes Caregiver confirmed with patient/requestor that no other refills are due, in the near future, with this provider at this time: Yes The last office visit in the department: 09/19/2024 Does the patient have a future office visit with this provider/department: Yes, 11/14/2024 Requested Prescriptions Pending Prescriptions Disp Refills HYDROcodone-acetaminophen (NORCO) 5-325 mg per tablet 60 tablet 0 Sig: Take 1 tablet by mouth every 6 hours as needed for up to 31 days. ALFONSO Murphy October 21, 2024 7:40 AM [facility] 10-21-2024 Miscellaneous Notes Prescription Refill Information The patient has been identified by name and date of : Yes Caregiver verified no other encounters exist for this prescription request: Yes Caregiver confirmed with patient/requestor that no other refills are due, in the near future, with this provider at this time: Yes The last office visit in the department: 09/19/2024 Does the patient have a future office visit with this provider/department: Yes, 11/14/2024 Requested Prescriptions Pending Prescriptions Disp Refills HYDROcodone-acetaminophen (NORCO) 5-325 mg per tablet 60 tablet 0 Sig: Take 1 tablet by mouth every 6 hours as needed for up to 31 days. ALFONSO Murphy October 21, 2024 7:40 AM documented in this encounter [facility] 10-13-2024 Telephone encounter Note New request for Botox entered into referrals. Pending authorization. [facility] 10-13-2024 Miscellaneous Notes New request for Botox entered into referrals. Pending authorization. Please check on the status of this, I don't see anything in her chart. Yoko Chatterjee LPN Pt calling to check the status on the PA for Botox she has been waiting on . Pt was seen last week and has not heard anything. Please advise pt. Ashley Contreras LPN documented in this encounter [facility] 10-12-2024 Telephone encounter Note Please check on the status of this, I don't see anything in her chart. Yoko Chatterjee LPN [facility] 10-12-2024 Telephone encounter Note Pt calling to check the status on the PA for Botox she has been waiting on . Pt was seen last week and has not heard anything. Please advise pt. Ashley Contreras LPN [facility] 10-06-2024 Telephone encounter Note Prescription Refill Information The patient has been identified by name and date of : Yes Caregiver verified no other encounters exist for this prescription request: Yes Caregiver confirmed with patient/requestor that no other refills are due, in the near future, with this provider at this time: Yes The last office visit in the department: 09/19/24 Does the patient have a future office visit with this provider/department: Yes 11/14/24 Requested Prescriptions Pending Prescriptions Disp Refills SUMAtriptan (IMITREX) 100 mg tablet 9 tablet 3 Sig: Take 1 tablet (100 mg) by mouth as needed. Jaylen Tubbs LPN October 06, 2024 8:06 AM [facility] 10-06-2024 Miscellaneous Notes Prescription Refill Information The patient has been identified by name and date of : Yes Caregiver verified no other encounters exist for this prescription request: Yes Caregiver confirmed with patient/requestor that no other refills are due, in the near future, with this provider at this time: Yes The last office visit in the department: 09/19/24 Does the patient have a future office visit with this provider/department: Yes 11/14/24 Requested Prescriptions Pending Prescriptions Disp Refills SUMAtriptan (IMITREX) 100 mg tablet 9 tablet 3 Sig: Take 1 tablet (100 mg) by mouth as needed. Jaylen Tubbs LPN October 06, 2024 8:06 AM documented in this encounter [facility] 10-05-2024 Instructions Robyn Harris PA-C - 10/05/2024 4:06 PM EST Will get botox approved and call when it is approved Will try to break the headache with a steroid pack in the morning for five days Follow up with botox documented in this encounter [facility] 10-05-2024 Note HNO ID: [id number] Author: ROBYN HARRIS PA-C Service: ? Author Type: Physician Nurse Tech Type: Progress Notes Filed: 10/05/2024 16:21 Note Text: [facility] for General Neurology Follow up CC: Headache Follow up Last Visit: 09/02/24 ASSESSMENT/PLAN: 1. Intractable chronic migraine with aura and without status migrainosus - ICD9: 346.01, ICD10: G43.E19 Patient presents for follow-up appointment for headaches. Notes that Emgality was extremely effective for her headaches however had allergic reaction to this. Describes hives to the injection sites that worsened with her second round. Due to this reaction, will refrain from using any further injectables. Did not experience any angioedema or respiratory issues. However, due to the effectiveness of the medication we use a similar type of medication with Qulipta 60 mg to take daily for prevention of migraine. Notes Imitrex is still effective for her, recently had a refill. No new symptoms that would warrant additional workup at this time. Patient agreeable to treatment plan of care at this time, questions were answered. Patient to follow-up in 2 to 3 months. Today: Patient is here for headache/migraine follow up. Last seen on 09/02/24 for headaches. Getting 8-10 on emgality and imitrex, however had an allergic rxn. Started qulipta 60mg. Saw PCP and noted interest in botox. Since last visit headaches have worsened. Notes that since mid August she has had a continuous headache, has fluctuated up and down but is never fully relieved. Has been taking Imitrex as much as possible, 10 times a month, which seems to help dull the headache but never fully relieves it. Unsure what caused the headache other than coming off the Emgality. Notes that the headache starts in the back of the neck and radiates upward. Of note, did have cosmetic Botox to the forehead on the 6th of this month. Does not that the cosmetic Botox does not seem to help much with her headaches. Current Headache treatment Preventative: Propranolol 60 mg, Lexapro Abortive: Imitrex Medications effective? yes # of doses of abortive medications per month: 10 Total headache days per month: daily Total headache attacks per month: daily Headache free days: No Duration of attacks: continuously Severity of headaches? severe Location: posterior headache . Aura: blurry but no aura Accompanying symptoms: phonophobia, nausea, vomiting, vertigo, neck pain . Quality:throbbing and stabbing . Worse with activity: Yes Pain today: 8/10 Triggers: menses. Prodrome:none. Tobacco Use: No. Alcohol Use: No Caffeine:Yes: Once daily Prior Therapies Lexapro, propranolol, imitrex, norco, zofran Elavil TPM Gabapentin Qulipta denied The patient's prior records were reviewed including and lab testing, imaging, and procedures done since their last visit with me. Review of symptoms including constitutional, eyes, ENT, neck, respiratory, cardiovascular, GI, , musculoskeletal, hematologic, oncologic, endocrine, and psychiatric categories is unchanged. No new details in the family history or social history were offered by the patient. PAST MEDICAL HISTORY Diagnosis Date Basal cell carcinoma 2011, 2015 multiple sites High blood pressure Moderate major depression, single episode (HCC) 11/13/2020 PMH - PAST MEDICAL HISTORY OF irritable bowel syndrome PMH - PAST MEDICAL HISTORY OF back pain PMH - PAST MEDICAL HISTORY OF Injections L4-L5 by Dr Knox in [place] PAST SURGICAL HISTORY Procedure Laterality Date COLONOSCOPY FLX DX W/COLLJ SPEC WHEN PFRMD 02/28/2020 Colonoscopy-Dr Bryant ESOPHAGOGASTRODUODENOSCOPY TRANSORAL DIAGNOSTIC 02/28/2020 EGD-Dr Bryant LAPAROSCOPIC CHOLECYSTECTOMY 08/26/2018 Dr. Bryant MOHS TRUNK/ARM/LEG 1ST STAGE 5 BLOCKS multiple BCC PAST SURGICAL HISTORY OF 02/2003 x2 discectomy L4-5 S1 PAST SURGICAL HISTORY OF DANDC PAST SURGICAL HISTORY OF 07/11/2004 L5-S1 anterior lumbar interbody fusion with posterior L5-S1 translaminar facet screw on left side and a facet joint screw on the right side, and this would be a 360-degree fusion PAST SURGICAL HISTORY OF 1999 lasix eye surgery PAST SURGICAL HISTORY OF 2003 wisdom teeth S THERMACHOICE UTERINE BALLOON 01/02/15 Hysteroscopy w/ endometrial ablation ALLERGIES Allergen Reactions Celestone [Betameth* Other: See Comments Cheeks and neck red and hot- felt like she had a fever in top 1/2 of body, other steroids have been ok Codeine GI UPSET, HEART RACES Emgality Pen [Galca* Hives Neurontin [Gabapent* Other: See Comments Extreme dizziness Sulfa (Sulfonamide * UNKNOWN Current Medications: ondansetron orally disintegrating (ZOFRAN ODT) 4 mg disintegrating tablet Take 1 tablet by mouth every 6 hours as needed for nausea/vomiting. HYDROcodone-acetaminophen (NORCO) 5-325 mg per tablet Take 1 tablet by mouth every 6 ho (more content not included)... [facility] 10-05-2024 History of Present illness Narrative Images from the original note were not included. [facility] for General Neurology Follow up CC: Headache Follow up Last Visit: 09/02/24 ASSESSMENT/PLAN: 1. Intractable chronic migraine with aura and without status migrainosus - ICD9: 346.01, ICD10: G43.E19 Patient presents for follow-up appointment for headaches. Notes that Emgality was extremely effective for her headaches however had allergic reaction to this. Describes hives to the injection sites that worsened with her second round. Due to this reaction, will refrain from using any further injectables. Did not experience any angioedema or respiratory issues. However, due to the effectiveness of the medication we use a similar type of medication with Qulipta 60 mg to take daily for prevention of migraine. Notes Imitrex is still effective for her, recently had a refill. No new symptoms that would warrant additional workup at this time. Patient agreeable to treatment plan of care at this time, questions were answered. Patient to follow-up in 2 to 3 months. Today: Patient is here for headache/migraine follow up. Last seen on 09/02/24 for headaches. Getting 8-10 on emgality and imitrex, however had an allergic rxn. Started qulipta 60mg. Saw PCP and noted interest in botox. Since last visit headaches have worsened. Notes that since mid August she has had a continuous headache, has fluctuated up and down but is never fully relieved. Has been taking Imitrex as much as possible, 10 times a month, which seems to help dull the headache but never fully relieves it. Unsure what caused the headache other than coming off the Emgality. Notes that the headache starts in the back of the neck and radiates upward. Of note, did have cosmetic Botox to the forehead on the 6th of this month. Does not that the cosmetic Botox does not seem to help much with her headaches. Current Headache treatment Preventative: Propranolol 60 mg, Lexapro Abortive: Imitrex Medications effective? yes # of doses of abortive medications per month: 10 Total headache days per month: daily Total headache attacks per month: daily Headache free days: No Duration of attacks: continuously Severity of headaches? severe Location: posterior headache . Aura: blurry but no aura Accompanying symptoms: phonophobia, nausea, vomiting, vertigo, neck pain . Quality:throbbing and stabbing . Worse with activity: Yes Pain today: 8/10 Triggers: menses. Prodrome:none. Tobacco Use: No. Alcohol Use: No Caffeine:Yes: Once daily Prior Therapies Lexapro, propranolol, imitrex, norco, zofran Elavil TPM Gabapentin Qulipta denied The patient's prior records were reviewed including and lab testing, imaging, and procedures done since their last visit with me. Review of symptoms including constitutional, eyes, ENT, neck, respiratory, cardiovascular, GI, , musculoskeletal, hematologic, oncologic, endocrine, and psychiatric categories is unchanged. No new details in the family history or social history were offered by the patient. PAST MEDICAL HISTORY Diagnosis Date Basal cell carcinoma 2011, 2015 multiple sites High blood pressure Moderate major depression, single episode (HCC) 11/13/2020 PMH - PAST MEDICAL HISTORY OF irritable bowel syndrome PMH - PAST MEDICAL HISTORY OF back pain PMH - PAST MEDICAL HISTORY OF Injections L4-L5 by Dr Knox in [place] PAST SURGICAL HISTORY Procedure Laterality Date COLONOSCOPY FLX DX W/COLLJ SPEC WHEN PFRMD 02/28/2020 Colonoscopy-Dr Bryant ESOPHAGOGASTRODUODENOSCOPY TRANSORAL DIAGNOSTIC 02/28/2020 EGD-Dr Bryant LAPAROSCOPIC CHOLECYSTECTOMY 08/26/2018 Dr. Bryant MOHS TRUNK/ARM/LEG 1ST STAGE 5 BLOCKS multiple BCC PAST SURGICAL HISTORY OF 02/2003 x2 discectomy L4-5 S1 PAST SURGICAL HISTORY OF D&C PAST SURGICAL HISTORY OF 07/11/2004 L5-S1 anterior lumbar interbody fusion with posterior L5-S1 translaminar facet screw on left side and a facet joint screw on the right side, and this would be a 360-degree fusion PAST SURGICAL HISTORY OF 1999 lasix eye surgery PAST SURGICAL HISTORY OF 2003 wisdom teeth S THERMACHOICE UTERINE BALLOON 01/02/15 Hysteroscopy w/ endometrial ablation ALLERGIES Allergen Reactions Celestone [Betameth* Other: See Comments Cheeks and neck red and hot- felt like she had a fever in top 1/2 of body, other steroids have been ok Codeine GI UPSET, HEART RACES Emgality Pen [Galca* Hives Neurontin [Gabapent* Other: See Comments Extreme dizziness Sulfa (Sulfonamide * UNKNOWN Current Medications: ondansetron orally disintegrating (ZOFRAN ODT) 4 mg disintegrating tablet Take 1 tablet by mouth every 6 hours as needed for nausea/vomiting. HYDROcodone-acetaminophen (NORCO) 5-325 mg per tablet Take 1 tablet by mouth every 6 hours as needed for up to 31 days. omeprazole (PRILOSEC) 20 mg capsule Take 1 capsule by mouth daily before breakfast. 1/2 hr before meal. valACYclovir (VALTREX) 1 gram tablet Take 1 tablet by mouth two times a day. (Patient taking differently: Take 1,000 mg by mouth as needed (cold sore). BID) SUMAtriptan (IMITREX) 100 mg tablet Take 1 tablet (100 mg) by mouth as needed. propranolol ER (INDERAL LA) 60 mg 24 hr capsule Take 1 capsule by mouth once daily. escitalopram oxalate (LEXAPRO) 5 mg tablet Take 1 tablet by mouth once daily. Take 1 tab a day for one week and then increase to 2 tabs a day SENNOSIDES 8.6 MG TAB as needed for constipation methylPREDNISolone (MEDROL, YAKELIN,) 4 mg Dose-Pack Take as directed Studies to Review: No New Health Issues: No New Social History: No New Family History: No REVIEW OF SYSTEMS: GENERAL:No weight loss, malaise or fevers. HEENT:no changes to hearing or vision NECK:negative for neck pain, swelling. RESPIRATORY: Negative for cough, wheezing or shortness of breath. CARDIOVASCULAR: Negative for chest pain, leg swelling or palpitations. GASTROINTESTINAL: Negative for abdominal discomfort, blood in stools or black stools or change in bowel habits GENITOURINARY: No history of dysuria, frequency or incontinence MUSKULOSKELETAL: Negative for joint pain or swelling, back pain or muscle pain. SKIN:Negative for lesions, rash, and itching. HEMATOLOGIC/LYMPHATIC/IMMUNOLOGIC:Nega tive for prolonged bleeding, bruising easily or swollen nodes. ENDOCRINE: Negative for cold or heat intolerance, polyuria, polydipsia NEUROLOGIC:See HPI PHYSICAL EXAMINATION: BP 132/95 (BP Site: Left Arm, BP Position: Sitting) Pulse 83 LMP 07/30/2024 (Approximate) SpO2 99% General: well appearing, in no acute distress, alert, HEENT: Normocephalic/atraumatic., Skin: Color, texture, turgor normal. No rashes or lesions, Lungs: Breathing comfortably, Neurological Examination: Cognition: The patient is alert and oriented times three Lucid and organized in conversation Able to tell detailed medical hx Speech is Normal in fluency volume and clarity Content and Syntax: Normal Comprehension: Normal, able to follow several step commands Cranial Nerves: Pupils are equal and reactive to light. Pupils normal in size Extraocular movements are grossly intact Good saccades and pursuits No nystagmus Hearing intact Good upgaze Visual dutton are full to confrontation. Facial, motor and sensory exam is symmetric Equal v1,V2, V3 Tongue is in midline. No tongue fasciculation. Palate is upgoing bilaterally SCM and trapezius are full. Shoulder shrug intact Normal tone and strength. Normal coordination. Normal gait. Impression: ASSESSMENT/PLAN: 1. Intractable chronic migraine with aura and without status migrainosus - ICD9: 346.01, ICD10: G43.E19 Patient with significantly worsening headaches since last appointment. Now they are daily, Qulipta was denied by insurance. Notes she had very good relief with the Emgality but had an allergic reaction to it. Currently on propranolol as well as Lexapro, has tried multiple medications in the past. Exam is otherwise reassuring, unsure what caused headaches is significantly worsened. However, patient very interested in Botox therapy for migraine prevention and feels is very appropriate due to trying and failing multiple medications in the past. No new symptoms that would warrant additional workup at this time. Discussed side effects of Botox and patient is amenable, does note that she recently got cosmetic Botox to her forehead on the sixth of the month. For abortive relief, notes that Imitrex usually is very helpful but for this headache that she has had since mid July it is not completely broken it. Discussed breaking the headache with a Medrol Dosepak and she has tolerated prednisone in the past. Will prescribe 5 days of prednisone to help break cycle, she did not be beneficial however will reach out and may try Depakote at that time. Patient agreeable to treatment plan of care at this time, questions were answered. Patient to follow-up for Botox therapy. Plan: All options for treatment discussed. Preventative: Lexapro, propranolol 60 mg, Botox Abortive: Imitrex Follow-up: 2 months I spent a total of 30 minutes on the date of the service which included preparing to see the patient, [id number] patient care, completing clinical documentation, obtaining and/or reviewing separately obtained history, performing a medically appropriate examination, counseling and educating the patient/family/caregiver, and ordering medications, tests, or procedures. Robyn Harris PA-C General Neurology [address] [place]. [address] Appointment: [phone] documented in this encounter [facility] 09-28-2024 Telephone encounter Note See note sent by patient. My migraines are still daily and I'm nauseous [facility] 09-28-2024 Miscellaneous Notes See note sent by patient. My migraines are still daily and I'm nauseous documented in this encounter [facility] 09-26-2024 Telephone encounter Note Prescription Refill Information The patient has been identified by name and date of : Yes Caregiver verified no other encounters exist for this prescription request: Yes Caregiver confirmed with patient/requestor that no other refills are due, in the near future, with this provider at this time: Yes The last office visit in the department: 09/19/24 Does the patient have a future office visit with this provider/department: Yes, 11/14/24 Requested Prescriptions Pending Prescriptions Disp Refills HYDROcodone-acetaminophen (NORCO) 5-325 mg per tablet 60 tablet 0 Sig: Take 1 tablet by mouth every 6 hours as needed for up to 31 days. Chris Bullard LPN September 26, 2024 7:19 PM [facility] 09-26-2024 Miscellaneous Notes Prescription Refill Information The patient has been identified by name and date of : Yes Caregiver verified no other encounters exist for this prescription request: Yes Caregiver confirmed with patient/requestor that no other refills are due, in the near future, with this provider at this time: Yes The last office visit in the department: 09/19/24 Does the patient have a future office visit with this provider/department: Yes, 11/14/24 Requested Prescriptions Pending Prescriptions Disp Refills HYDROcodone-acetaminophen (NORCO) 5-325 mg per tablet 60 tablet 0 Sig: Take 1 tablet by mouth every 6 hours as needed for up to 31 days. Chris Bullard LPN September 26, 2024 7:19 PM documented in this encounter [facility] 09-19-2024 Note HNO ID: [id number] Author: JACEK SCRUGGS MD Service: ? Author Type: Physician Type: Progress Notes Filed: 09/19/2024 17:35 Note Text: Patient presents with: Follow Up HPI: Patient presents today for office visit for follow up. GERD: no reflux. No new derm issues. Chronic pain:oarrs done. Has done controlled substance agreement. Still helps her perform ADLs No misuse or abuse. Has seen pain management. Has been not working quite as well. Discussed if worsens, to pain management. Tox screens done in May. Psych: lexapro is overall doing well. Discussed stopping possibly in spring Having worsening headaches. Has seen neurology. Qulipta was stopped. Would like to have botox. MEDICATIONS: Current Outpatient Medications Medication Sig atogepant (QULIPTA) 60 mg tablet Take 1 tablet (60 mg) by mouth once daily. HYDROcodone-acetaminophen (NORCO) 5-325 mg per tablet Take 1 tablet by mouth every 6 hours as needed for up to 31 days. omeprazole (PRILOSEC) 20 mg capsule Take 1 capsule by mouth daily before breakfast. 1/2 hr before meal. ondansetron orally disintegrating (ZOFRAN ODT) 4 mg disintegrating tablet Take 1 tablet by mouth every 6 hours as needed for nausea/vomiting. valACYclovir (VALTREX) 1 gram tablet Take 1 tablet by mouth two times a day. (Patient taking differently: Take 1,000 mg by mouth as needed (cold sore). BID) SUMAtriptan (IMITREX) 100 mg tablet Take 1 tablet (100 mg) by mouth as needed. propranolol ER (INDERAL LA) 60 mg 24 hr capsule Take 1 capsule by mouth once daily. escitalopram oxalate (LEXAPRO) 5 mg tablet Take 1 tablet by mouth once daily. Take 1 tab a day for one week and then increase to 2 tabs a day SENNOSIDES 8.6 MG TAB as needed for constipation No current facility-administered medications for this visit. ALLERGIES: ALLERGIES Allergen Reactions Celestone [Betameth* Other: See Comments Cheeks and neck red and hot- felt like she had a fever in top 1/2 of body, other steroids have been ok Codeine GI UPSET, HEART RACES Emgality Pen [Galca* Hives Neurontin [Gabapent* Other: See Comments Extreme dizziness Sulfa (Sulfonamide * UNKNOWN PAST MEDICAL HISTORY Diagnosis Date Basal cell carcinoma 2011, 2015 multiple sites High blood pressure Moderate major depression, single episode (HCC) 11/13/2020 PMH - PAST MEDICAL HISTORY OF irritable bowel syndrome PMH - PAST MEDICAL HISTORY OF back pain PMH - PAST MEDICAL HISTORY OF Injections L4-L5 by Dr Knox in [place] PAST SURGICAL HISTORY Procedure Laterality Date COLONOSCOPY FLX DX W/COLLJ SPEC WHEN PFRMD 02/28/2020 Colonoscopy-Dr Bryant ESOPHAGOGASTRODUODENOSCOPY TRANSORAL DIAGNOSTIC 02/28/2020 EGD-Dr Byrant LAPAROSCOPIC CHOLECYSTECTOMY 08/26/2018 Dr. Bryant MOHS TRUNK/ARM/LEG 1ST STAGE 5 BLOCKS multiple BCC PAST SURGICAL HISTORY OF 02/2003 x2 discectomy L4-5 S1 PAST SURGICAL HISTORY OF DANDC PAST SURGICAL HISTORY OF 07/11/2004 L5-S1 anterior lumbar interbody fusion with posterior L5-S1 translaminar facet screw on left side and a facet joint screw on the right side, and this would be a 360-degree fusion PAST SURGICAL HISTORY OF 1999 lasix eye surgery PAST SURGICAL HISTORY OF 2003 wisdom teeth S THERMACHOICE UTERINE BALLOON 01/02/15 Hysteroscopy w/ endometrial ablation FAMILY HISTORY Problem Relation Age of Onset Lipids Mother Headache Mother Ischemic Heart Disease Maternal Grandmother Skin Cancer Maternal Grandmother 60 Ischemic Heart Disease Maternal Grandfather other (Melanoma [Other]) Maternal Grandfather 81 Hypertension Paternal Grandmother all grandparents Breast Cancer Paternal Grandmother 66 Breast Cancer Paternal Aunt 45 bilateral Colon Cancer Paternal Aunt 55 other (Kidney Cancer [Other]) Paternal Aunt 55 Breast Cancer Paternal Aunt 40s Breast Cancer Maternal Aunt 50s Social History Tobacco Use Smoking status: Never Smokeless tobacco: Never Vaping Use Vaping status: Never Used Substance Use Topics Alcohol use: No Drug use: No Reviewed current medications, allergies, past medical history, surgical history, family history and social history today. REVIEW OF SYSTEMS All other reviewed and negative other than HPI. HEALTH MAINTENANCE: Reviewed health maintenance issues today and recommended the following in detail. There are no preventive care reminders to display for this patient. VITALS: BP 124/72 Pulse 72 Wt 64 kg (141 lb) LMP 07/30/2024 (Approximate) SpO2 98% BMI 22.76 kg/m? Last 4 Encounter Wt Readings: Date: Wt: 09/19/2024 64 kg (141 lb) 08/03/2024 64 kg (141 lb) 07/28/2024 64 kg (141 lb 1.5 oz) 07/12/2024 65 kg (143 lb 3.2 oz) PHYSICAL EXAMINATION: General appearance: Well appearing, alert, in no acute distress, well-hydrated, well nourished. Skin: Skin color, texture, turgor normal, no suspicious rashes or lesions Head: Normocephalic, no masses, lesion (more content not included)... [facility] 09-19-2024 History of Present illness Narrative Patient presents with: Follow Up HPI: Patient presents today for office visit for follow up. GERD: no reflux. No new derm issues. Chronic pain:oarrs done. Has done controlled substance agreement. Still helps her perform ADLs No misuse or abuse. Has seen pain management. Has been not working quite as well. Discussed if worsens, to pain management. Tox screens done in May. Psych: lexapro is overall doing well. Discussed stopping possibly in spring Having worsening headaches. Has seen neurology. Qulipta was stopped. Would like to have botox. MEDICATIONS: Current Outpatient Medications Medication Sig atogepant (QULIPTA) 60 mg tablet Take 1 tablet (60 mg) by mouth once daily. HYDROcodone-acetaminophen (NORCO) 5-325 mg per tablet Take 1 tablet by mouth every 6 hours as needed for up to 31 days. omeprazole (PRILOSEC) 20 mg capsule Take 1 capsule by mouth daily before breakfast. 1/2 hr before meal. ondansetron orally disintegrating (ZOFRAN ODT) 4 mg disintegrating tablet Take 1 tablet by mouth every 6 hours as needed for nausea/vomiting. valACYclovir (VALTREX) 1 gram tablet Take 1 tablet by mouth two times a day. (Patient taking differently: Take 1,000 mg by mouth as needed (cold sore). BID) SUMAtriptan (IMITREX) 100 mg tablet Take 1 tablet (100 mg) by mouth as needed. propranolol ER (INDERAL LA) 60 mg 24 hr capsule Take 1 capsule by mouth once daily. escitalopram oxalate (LEXAPRO) 5 mg tablet Take 1 tablet by mouth once daily. Take 1 tab a day for one week and then increase to 2 tabs a day SENNOSIDES 8.6 MG TAB as needed for constipation No current facility-administered medications for this visit. ALLERGIES: ALLERGIES Allergen Reactions Celestone [Betameth* Other: See Comments Cheeks and neck red and hot- felt like she had a fever in top 1/2 of body, other steroids have been ok Codeine GI UPSET, HEART RACES Emgality Pen [Galca* Hives Neurontin [Gabapent* Other: See Comments Extreme dizziness Sulfa (Sulfonamide * UNKNOWN PAST MEDICAL HISTORY Diagnosis Date Basal cell carcinoma 2011, 2015 multiple sites High blood pressure Moderate major depression, single episode (HCC) 11/13/2020 PMH - PAST MEDICAL HISTORY OF irritable bowel syndrome PMH - PAST MEDICAL HISTORY OF back pain PMH - PAST MEDICAL HISTORY OF Injections L4-L5 by Dr Knox in [place] PAST SURGICAL HISTORY Procedure Laterality Date COLONOSCOPY FLX DX W/COLLJ SPEC WHEN PFRMD 02/28/2020 Colonoscopy-Dr Bryant ESOPHAGOGASTRODUODENOSCOPY TRANSORAL DIAGNOSTIC 02/28/2020 EGD-Dr Bryant LAPAROSCOPIC CHOLECYSTECTOMY 08/26/2018 Dr. Bryant MOHS TRUNK/ARM/LEG 1ST STAGE 5 BLOCKS multiple BCC PAST SURGICAL HISTORY OF 02/2003 x2 discectomy L4-5 S1 PAST SURGICAL HISTORY OF D&C PAST SURGICAL HISTORY OF 07/11/2004 L5-S1 anterior lumbar interbody fusion with posterior L5-S1 translaminar facet screw on left side and a facet joint screw on the right side, and this would be a 360-degree fusion PAST SURGICAL HISTORY OF 1999 lasix eye surgery PAST SURGICAL HISTORY OF 2003 wisdom teeth S THERMACHOICE UTERINE BALLOON 01/02/15 Hysteroscopy w/ endometrial ablation FAMILY HISTORY Problem Relation Age of Onset Lipids Mother Headache Mother Ischemic Heart Disease Maternal Grandmother Skin Cancer Maternal Grandmother 60 Ischemic Heart Disease Maternal Grandfather other (Melanoma [Other]) Maternal Grandfather 81 Hypertension Paternal Grandmother all grandparents Breast Cancer Paternal Grandmother 66 Breast Cancer Paternal Aunt 45 bilateral Colon Cancer Paternal Aunt 55 other (Kidney Cancer [Other]) Paternal Aunt 55 Breast Cancer Paternal Aunt 40s Breast Cancer Maternal Aunt 50s Social History Tobacco Use Smoking status: Never Smokeless tobacco: Never Vaping Use Vaping status: Never Used Substance Use Topics Alcohol use: No Drug use: No Reviewed current medications, allergies, past medical history, surgical history, family history and social history today. REVIEW OF SYSTEMS All other reviewed and negative other than HPI. HEALTH MAINTENANCE: Reviewed health maintenance issues today and recommended the following in detail. There are no preventive care reminders to display for this patient. VITALS: BP 124/72 Pulse 72 Wt 64 kg (141 lb) LMP 07/30/2024 (Approximate) SpO2 98% BMI 22.76 kg/m Last 4 Encounter Wt Readings: Date: Wt: 09/19/2024 64 kg (141 lb) 08/03/2024 64 kg (141 lb) 07/28/2024 64 kg (141 lb 1.5 oz) 07/12/2024 65 kg (143 lb 3.2 oz) PHYSICAL EXAMINATION: General appearance: Well appearing, alert, in no acute distress, well-hydrated, well nourished. Skin: Skin color, texture, turgor normal, no suspicious rashes or lesions Head: Normocephalic, no masses, lesions, tenderness or abnormalities Lungs: Lungs clear to auscultation. No wheezing, rhonchi, rales Heart: RRR without murmur, gallop, or rubs. No ectopy Abdomen: Normal abdominal exam, Abdomen soft, non-tender. Bowel sounds normal. No masses, organomegaly Extremities: No deformities, edema, skin discoloration, clubbing or cyanosis. Good capillary refill. ASSESSMENT/PLAN: 1. Other migraine without status migrainosus, not intractable - ICD9: 346.80, ICD10: G43.809 (primary diagnosis) - stable. 2. Primary hypertension - ICD9: 401.9, ICD10: I10 - Controlled - Continue current medications 3. Postlaminectomy syndrome - ICD9: 722.80, ICD10: M96.1 - stable. Meds are benefiting. Continue current meds. Consider podiatry 4. Basal cell carcinoma (BCC), unspecified site - ICD9: 173.91, ICD10: C44.91 - needs to find a new derm 5. Anxiety - ICD9: 300.00, ICD10: F41.9 - stable. Jacek Scruggs MD documented in this encounter [facility] 09-09-2024 Telephone encounter Note Spoke to patient, verified name and date of . Advised patient of message below, patient verbalized understanding. Patient states she will wait to see if PA gets approved then go from there. Marjorie Carbajal LPN September 09, 2024 1:39 PM [facility] 09-09-2024 Telephone encounter Note Images from the original note were not included. Robyn Harris PA-C You1 hour ago (12:24 PM) MQ Unfortunately for botox to be covered, she needs to have 15+ headaches in a month. At last appointment she was having 8-10 on average. If her headaches worsen this could be an option. [facility] 09-09-2024 Miscellaneous Notes Spoke to patient, verified name and date of . Advised patient of message below, patient verbalized understanding. Patient states she will wait to see if PA gets approved then go from there. Marjorie Carbajal LPN September 09, 2024 1:39 PM Images from the original note were not included. Robyn Harris PA-C You1 hour ago (12:24 PM) MQ Unfortunately for botox to be covered, she needs to have 15+ headaches in a month. At last appointment she was having 8-10 on average. If her headaches worsen this could be an option. Patient calls back and states that she is not comfortable with the Lyrica. Patient is asking about botox for her migraines? Please review and advise, Renuka Hernandez RN Called patient no answer, Left voicemail. Marjorie Carbajal LPN September 09, 2024 11:01 AM Images from the original note were not included. Robyn Harris PA-C You2 hours ago (8:25 AM) MQ We can try a medication called lyrica, it is not a specific migraine medication but can be very helpful. We would start at a lower dose twice daily. Please confirm that patient would like to try this. Robyn Harris PA-C Patient calling to give message to MARANDA Jaimes that her [place] insurance will not cover her Atogepant medication. Patient asking if provider could recommend an alternative medication? Please call patient with update. Thank you. documented in this encounter [facility] 09-09-2024 Telephone encounter Note Patient calls back and states that she is not comfortable with the Lyrica. Patient is asking about botox for her migraines? Please review and advise, Renuka Hernandez RN [facility] 09-09-2024 Telephone encounter Note Called patient no answer, Left voicemail. Marjorie Carbajal LPN September 09, 2024 11:01 AM [facility] 09-09-2024 Telephone encounter Note Images from the original note were not included. Robyn Harris PA-C You2 hours ago (8:25 AM) MQ We can try a medication called lyrica, it is not a specific migraine medication but can be very helpful. We would start at a lower dose twice daily. Please confirm that patient would like to try this. Robyn Harris PA-C [facility] 09-08-2024 Telephone encounter Note Request completed and faxed. Lian Rivero MA [facility] 09-08-2024 Miscellaneous Notes Request completed and faxed. Lian Rivero MA Received Prior Authorization request via: From [facility] Medication being Authorized: Qulipta 60 mg Completed PA via: Completed form, placed on providers desk for signature, form needs faxed to: [phone] (as stated on form) Reference number/ Provider: Robyn Rivero MA documented in this encounter [facility] 09-08-2024 Telephone encounter Note Received Prior Authorization request via: From [facility] Medication being Authorized: Qulipta 60 mg Completed PA via: Completed form, placed on providers desk for signature, form needs faxed to: [phone] (as stated on form) Reference number/ Provider: Robyn Rivero MA [facility] 09-08-2024 Telephone encounter Note Patient calling to give message to MARANDA Jaimes that her [employer] insurance will not cover her Atogepant medication. Patient asking if provider could recommend an alternative medication? Please call patient with update. Thank you. [facility] 09-02-2024 Robyn Jacob PA-C - 09/02/2024 11:09 AM EST Stop emgality, will start Qulipta 60mg daily Continue with imtirex as needed with start of headache. Follow up in 2-3 months documented in this encounter [facility] 09-02-2024 Note HNO ID: [id number] Author: ROBYN HARRIS PA-C Service: ? Author Type: Physician Nurse Tech Type: Progress Notes Filed: 09/02/2024 11:10 Note Text: [facility] Follow Up / Established Virtual Visit I have communicated my name and active licensure. The patient's identity and physical location were verified at the time of this visit. Either the patient or their legal outside sales representative has been informed of the risks and benefits of -- and alternatives to -- treatment through a remote evaluation and consents to proceed with the evaluation remotely. Individuals who were included in, or assisted with the encounter were: Anastasia Simpson Robyn Harris PA-C Chief Complaint/Issues: Anastasia Simpson is a 48 year old female seen in the [facility] for: Migraine Most Recent Neurological Assessment and Plan: Last Filed Values None HPI/Interval History: Last Visit: 07/12/24 Assessment AND Plan: Anastasia Simpson is a 48 year old right-handed female with a history of 3 lumbar surgeries, migraines, insomnia. Her examination demonstrates decreased forehead strength, patient with Botox 3 weeks ago. Patient with 15 years of chronic migraines, worsening over the last year or so. Notes that they are still the same headache type, but lasting longer, 1 headache can last for 10 to 12 days and usually has 2 attacks a month. Imitrex will completely abort the headache but the headache comes back the next day. Is on propranolol for both blood pressure and headaches, has been on Topamax and gabapentin in the past with significant side effects. No red flag signs or symptoms with a headache that would warrant additional workup at this time, has had previous MRI imaging in the past that was normal. However, due to headaches worsening, if they are not improving with treatment may consider repeat MRI at that time. In terms of treatment, discussed preventatives that may be beneficial, she has tried antidepressants, antiseizure medications and is currently on a beta-rhea for alternative therapies may be helpful. Would like to try injectable, will try Emgality with first dosage being a loading dose followed by 1 injection every month. Discussed common side effects and patient is amenable. For abortive relief, patient would like to continue with Imitrex. No history of stroke or heart attack in the past. Encouraged conservative therapy as well. Patient agreeable to treatment plan of care at this time, questions were answered. Patient to follow-up in 3 to 4 months or sooner should any symptoms change or worsen. Anastasia was seen today for new patient evaluation. Diagnoses and all orders for this visit: Intractable chronic migraine with aura and without status migrainosus - galcanezumab-gnln 120 mg/mL subcutaneous syringe (EMGALITY); Inject 2 mL subcutaneously once every month. Do not shake. - galcanezumab-gnln 120 mg/mL subcutaneous syringe (EMGALITY); Inject 1 mL subcutaneously once every month. Do not shake. Other orders - CONSULT TO NEUROLOGY All options for treatment discussed. Preventative:emgality Abortive: imitex Imaging:none Labs: none She should return to see me in 3 months. Today: Patient is here for headache/migraine follow up. Concerned for allergic rxn to emgality. Last seen on 07/12/24 for migraine, having 20 BARNES days. Started emgality and imitrex. Sent in message on 08/08/24 Patient said a week after the first injection, the injection site is red and warm to touch, has tiny bumps, tender to touch. Patient said the second injection site is doing the same thing, a week after the injection, she said gets more red after each day goes on. Since last visit headaches have improved significantly on the Emgality however she has been having an allergic reaction to the Emgality. Notes that after the first dose she had a small red bump appeared a few days later, then after a few more days it turned into a large red warm [place]. She does again think of it so she took the second months dose and then she had a significant worsening of similar symptoms. Notes that she had multiple large red bumps that were warm to the touch and slightly sensitive. Has not had another dose since due to fear of allergic reaction worsening. Did not have any respiratory issues or angioedema. Notes that while she had this reaction the medicine was very effective for her. Notes that even with the first dose that she had significant benefit and reduction in her headache days. Notes that for the first time she was not running out of her rescue medication and she had extra each month. No other new symptoms or concerns today. Current Headache treatment Preventative: emgality Abortive: imitrex Medications effective? no # of doses of abortive medications per month: Less than 10 Total headache days per month: 8-10 Tot (more content not included)... [facility] 09-02-2024 History of Present illness Narrative Images from the original note were not included. [facility] Follow Up / Established Virtual Visit I have communicated my name and active licensure. The patient's identity and physical location were verified at the time of this visit. Either the patient or their legal outside sales representative has been informed of the risks and benefits of -- and alternatives to -- treatment through a remote evaluation and consents to proceed with the evaluation remotely. Individuals who were included in, or assisted with the encounter were: Anastasia Simpson Robyn Harris PA-C Chief Complaint/Issues: Anastasia Simpson is a 48 year old female seen in the [facility] for: Migraine Most Recent Neurological Assessment and Plan: Last Filed Values None HPI/Interval History: Last Visit: 07/12/24 Assessment & Plan: Anastasia Simpson is a 48 year old right-handed female with a history of 3 lumbar surgeries, migraines, insomnia. Her examination demonstrates decreased forehead strength, patient with Botox 3 weeks ago. Patient with 15 years of chronic migraines, worsening over the last year or so. Notes that they are still the same headache type, but lasting longer, 1 headache can last for 10 to 12 days and usually has 2 attacks a month. Imitrex will completely abort the headache but the headache comes back the next day. Is on propranolol for both blood pressure and headaches, has been on Topamax and gabapentin in the past with significant side effects. No red flag signs or symptoms with a headache that would warrant additional workup at this time, has had previous MRI imaging in the past that was normal. However, due to headaches worsening, if they are not improving with treatment may consider repeat MRI at that time. In terms of treatment, discussed preventatives that may be beneficial, she has tried antidepressants, antiseizure medications and is currently on a beta-rhea for alternative therapies may be helpful. Would like to try injectable, will try Emgality with first dosage being a loading dose followed by 1 injection every month. Discussed common side effects and patient is amenable. For abortive relief, patient would like to continue with Imitrex. No history of stroke or heart attack in the past. Encouraged conservative therapy as well. Patient agreeable to treatment plan of care at this time, questions were answered. Patient to follow-up in 3 to 4 months or sooner should any symptoms change or worsen. Anastasia was seen today for new patient evaluation. Diagnoses and all orders for this visit: Intractable chronic migraine with aura and without status migrainosus - galcanezumab-gnln 120 mg/mL subcutaneous syringe (EMGALITY); Inject 2 mL subcutaneously once every month. Do not shake. - galcanezumab-gnln 120 mg/mL subcutaneous syringe (EMGALITY); Inject 1 mL subcutaneously once every month. Do not shake. Other orders - CONSULT TO NEUROLOGY All options for treatment discussed. Preventative:emgality Abortive: imitex Imaging:none Labs: none She should return to see me in 3 months. Today: Patient is here for headache/migraine follow up. Concerned for allergic rxn to emgality. Last seen on 07/12/24 for migraine, having 20 BARNES days. Started emgality and imitrex. Sent in message on 08/08/24 Patient said a week after the first injection, the injection site is red and warm to touch, has tiny bumps, tender to touch. Patient said the second injection site is doing the same thing, a week after the injection, she said gets more red after each day goes on. Since last visit headaches have improved significantly on the Emgality however she has been having an allergic reaction to the Emgality. Notes that after the first dose she had a small red bump appeared a few days later, then after a few more days it turned into a large red warm [place]. She does again think of it so she took the second months dose and then she had a significant worsening of similar symptoms. Notes that she had multiple large red bumps that were warm to the touch and slightly sensitive. Has not had another dose since due to fear of allergic reaction worsening. Did not have any respiratory issues or angioedema. Notes that while she had this reaction the medicine was very effective for her. Notes that even with the first dose that she had significant benefit and reduction in her headache days. Notes that for the first time she was not running out of her rescue medication and she had extra each month. No other new symptoms or concerns today. Current Headache treatment Preventative: emgality Abortive: imitrex Medications effective? no # of doses of abortive medications per month: Less than 10 Total headache days per month: 8-10 Total headache attacks per month: 8-10 Headache free days: Yes Duration of attacks: 2-3 days Severity of headaches? severe Location: top of the head and radiate down. Aura: loses central vision (only a dozen total) Prodrome:none. Accompanying symptoms: phonophobia, nausea, vomiting, vertigo, neck pain. Quality:throbbing and piercing/stabbing. Worse with activity: Yes Triggers: menses. Cough/sneeze/valsalva as trigger: no Positional changes: sometimes getting up too quickly Most common time of day for headache to begin:anytime. Time missed from work or school: have in the past Pain today: 0/10 Tobacco Use: No. Alcohol Use: No Caffeine:Yes: once daily Prior Therapies Lexapro, propranolol, imitrex, norco, zofran Elavil TPM Gabapentin General Examination: She is alone. General: Awake, alert, interactive, no acute distress, good nutritional status, normal development, well-kept Only a limited general examination was done. Neurological Exam Mental Status Alert, fully oriented, attentive, with normal cognition, memory, speech and affect. Cranial Nerves Extraocular movements normal. No nystagmus, no ptosis, and pupils equal. Face symmetrical. Motor Examination and Coordination Distance Motor Examination Arms: Well-coordinated symmetrical strong antigravity movements of both arms. Manipulates phone and small objects well. No tremor or adventitious movements. No apparent muscle atrophy or deformity/contracture. Assessment & Plan 09/02/2024 - Robyn Harris PA-C ASSESSMENT ASSESSMENT/PLAN: 1. Intractable chronic migraine with aura and without status migrainosus - ICD9: 346.01, ICD10: G43.E19 Patient presents for follow-up appointment for headaches. Notes that Emgality was extremely effective for her headaches however had allergic reaction to this. Describes hives to the injection sites that worsened with her second round. Due to this reaction, will refrain from using any further injectables. Did not experience any angioedema or respiratory issues. However, due to the effectiveness of the medication we use a similar type of medication with Qulipta 60 mg to take daily for prevention of migraine. Notes Imitrex is still effective for her, recently had a refill. No new symptoms that would warrant additional workup at this time. Patient agreeable to treatment plan of care at this time, questions were answered. Patient to follow-up in 2 to 3 months. No diagnosis found. No follow-ups on file. Data Review Objective Current Outpatient Medications Medication Sig HYDROcodone-acetaminophen (NORCO) 5-325 mg per tablet Take 1 tablet by mouth every 6 hours as needed for up to 31 days. omeprazole (PRILOSEC) 20 mg capsule Take 1 capsule by mouth daily before breakfast. 1/2 hr before meal. ondansetron orally disintegrating (ZOFRAN ODT) 4 mg disintegrating tablet Take 1 tablet by mouth every 6 hours as needed for nausea/vomiting. valACYclovir (VALTREX) 1 gram tablet Take 1 tablet by mouth two times a day. (Patient taking differently: Take 1,000 mg by mouth as needed (cold sore). BID) galcanezumab-gnln 120 mg/mL subcutaneous syringe (EMGALITY) Inject 2 mL subcutaneously once every month. Do not shake. galcanezumab-gnln 120 mg/mL subcutaneous syringe (EMGALITY) Inject 1 mL subcutaneously once every month. Do not shake. SUMAtriptan (IMITREX) 100 mg tablet Take 1 tablet (100 mg) by mouth as needed. propranolol ER (INDERAL LA) 60 mg 24 hr capsule Take 1 capsule by mouth once daily. escitalopram oxalate (LEXAPRO) 5 mg tablet Take 1 tablet by mouth once daily. Take 1 tab a day for one week and then increase to 2 tabs a day SENNOSIDES 8.6 MG TAB as needed for constipation No current facility-administered medications for this visit. ACTIVE PROBLEM LIST Postlaminectomy Syndrome Basal Cell Carcinoma Migraine Chronic Insomnia Anxiety History of Colonic Polyps Neck Pain Radicular Pain in Left Arm Acute Left-Sided Thoracic Back Pain Hypertension PAST MEDICAL HISTORY Diagnosis Date Basal cell carcinoma 2011, 2016 multiple sites High blood pressure Moderate major depression, single episode (HCC) 11/13/2020 PMH - PAST MEDICAL HISTORY OF irritable bowel syndrome PMH - PAST MEDICAL HISTORY OF back pain PMH - PAST MEDICAL HISTORY OF Injections L4-L5 by Dr Knox in [place] PAST SURGICAL HISTORY Procedure Laterality Date COLONOSCOPY FLX DX W/COLLJ SPEC WHEN PFRMD 02/28/2020 Colonoscopy-Dr Bryant ESOPHAGOGASTRODUODENOSCOPY TRANSORAL DIAGNOSTIC 02/28/2020 EGD-Dr Bryant LAPAROSCOPIC CHOLECYSTECTOMY 08/26/2018 Dr. Bryant MOHJanessa TRUNK/ARM/LEG 1ST STAGE 5 BLOCKS multiple BCC PAST SURGICAL HISTORY OF 02/2003 x2 discectomy L4-5 S1 PAST SURGICAL HISTORY OF D&C PAST SURGICAL HISTORY OF 07/11/2004 L5-S1 anterior lumbar interbody fusion with posterior L5-S1 translaminar facet screw on left side and a facet joint screw on the right side, and this would be a 360-degree fusion PAST SURGICAL HISTORY OF 1999 lasix eye surgery PAST SURGICAL HISTORY OF 2003 wisdom teeth S THERMACHOICE UTERINE BALLOON 01/02/15 Hysteroscopy w/ endometrial ablation Social History Tobacco Use Smoking status: Never Smokeless tobacco: Never Vaping Use Vaping status: Never Used Substance Use Topics Alcohol use: No Drug use: No FAMILY HISTORY Problem Relation Age of Onset Lipids Mother Headache Mother Ischemic Heart Disease Maternal Grandmother Skin Cancer Maternal Grandmother 60 Ischemic Heart Disease Maternal Grandfather other (Melanoma [Other]) Maternal Grandfather 81 Hypertension Paternal Grandmother all grandparents Breast Cancer Paternal Grandmother 66 Breast Cancer Paternal Aunt 45 bilateral Colon Cancer Paternal Aunt 55 other (Kidney Cancer [Other]) Paternal Aunt 55 Breast Cancer Paternal Aunt 40s Breast Cancer Maternal Aunt 50s Review of Systems Lab and Test Review: Results for orders placed or performed in visit on 08/03/24 PAP TEST Result Value Ref Range Case Report Gynecologic Cytology Report Case: [id number] Authorizing Provider: Judith Newman APRN.SCHOOL TRANSPORTATION SUPERVISOR Collected: 08/03/2024 07:50 AM Ordering Location: OB/Gynecology Received: 08/03/2024 11:14 AM First Screen: Monica Riley, CT, ASCP Pathologist: Arlette Mccray MD Specimen: Pap Test, ThinPrep, Cervix Specimen Adequacy Satisfactory for interpretation. General Categorization Epithelial Cell Abnormality Interpretation (A) Atypical squamous cells of undetermined significance (ASC-US). Other Interpretation(s) Endometrial cells present in a woman 45 years or older (see comment). Diagnosis Comment Endometrial cells in women 45 years or older, may be associated with benign endometrium, hormonal alterations and less commonly, endometrial or uterine abnormalities. Endometrial evaluation is recommended in postmenopausal women. Clinical History Routine Exam LMP 07/30/2024 Pap Disclaimer The Pap Smear is a screening test for cervical cancer. False negative results occur with all screening tests, emphasizing the need for rescreening at recommended intervals, and clinical correlation. PAP Mink Slicer Comment This specimen has been analyzed by the ThinPrep Imaging System, an automated imaging and review system, which assists the laboratory in evaluating cells on ThinPrep Pap tests. Following automated imaging, selected [place] from every slide are reviewed by a lead developer. Performing Lab Technical component, lead developer screening performed at [facility], [address] [place] [id number] CLIA# [id number] Diagnostic interpretation performed at [facility], [facility] [id number] CLIA# [id number] Director Supplier Quality: Mat Ulrich M.D. HIGH RISK HUMAN PAPILLOMA VIRUS (HPV), PCR FOR DETECTION AND GENOTYPING Specimen: Cervix; Sterile Fluid/Body Fluid Result Value Ref Range High Risk HPV Type 16 DNA Not detected Not detected High Risk HPV Type 18 DNA Not detected Not detected High Risk HPV Other Type DNA Not detected Not detected Outside Data/Labs: Subjective Patient-Entered Data: 09/02/24 - GENERAL NEUROLOGY SCORES 05/02/2024 08/22/2024 08/31/2024 PROMIS 10 Health, in general Good Good Good Quality of life, in general Good Fair Fair Physical health, in general Good Fair Fair Mental health, in general Good Fair Fair Social activities satisfaction Good Fair Fair Performing ADL's Mostly Mostly Mostly Social role satisfaction Good Fair Fair Pain, on average 5 5 5 Fatigue, on average Severe Moderate Moderate Emotional problems Never Sometimes Sometimes PHYSICAL Score 39.8 (Fair) 39.8 (Fair) 39.8 (Fair) MENTAL Score 48.3 (Very Good) 36.3 (Fair) 36.3 (Fair) 05/02/2024 05/02/2024 05/02/2024 Depression Screening PHQ-2 Score 0 0 PHQ-9 Score 2 UMAIR-2 Total Score 0 UMAIR-7 Total Score 1 07/10/2024 SLEEP APNEA SCORE Probability of moderate-severe sleep apnea (%) SAPS V2 13 (Sleep study not recommended) No data to display No data to display I spent a total of 30 minutes on the date of the service which included preparing to see the patient, [id number] patient care, completing clinical documentation, obtaining and/or reviewing separately obtained history, performing a medically appropriate examination, counseling and educating the patient/family/caregiver, and ordering medications, tests, or procedures. Robyn Harris PA-C documented in this encounter [facility] 08-31-2024 Telephone encounter Note Prescription Refill Information The patient has been identified by name and date of : Yes Caregiver verified no other encounters exist for this prescription request: Yes Caregiver confirmed with patient/requestor that no other refills are due, in the near future, with this provider at this time: Yes The last office visit in the department: 07/04/24 Does the patient have a future office visit with this provider/department: Yes Requested Prescriptions Pending Prescriptions Disp Refills HYDROcodone-acetaminophen (NORCO) 5-325 mg per tablet 60 tablet 0 Sig: Take 1 tablet by mouth every 6 hours as needed for up to 31 days. Danitza Mendez LPN August 31, 2024 11:19 AM [facility] 08-31-2024 Miscellaneous Notes Prescription Refill Information The patient has been identified by name and date of : Yes Caregiver verified no other encounters exist for this prescription request: Yes Caregiver confirmed with patient/requestor that no other refills are due, in the near future, with this provider at this time: Yes The last office visit in the department: 07/04/24 Does the patient have a future office visit with this provider/department: Yes Requested Prescriptions Pending Prescriptions Disp Refills HYDROcodone-acetaminophen (NORCO) 5-325 mg per tablet 60 tablet 0 Sig: Take 1 tablet by mouth every 6 hours as needed for up to 31 days. Danitza Mendez LPN August 31, 2024 11:19 AM documented in this encounter [facility] 08-30-2024 Telephone encounter Note The appeal was still denied. This is in scanned documents. Pt notified via my chart. [facility] 08-30-2024 Miscellaneous Notes The appeal was still denied. This is in scanned documents. Pt notified via my chart. Appeal requested faxed to [phone]. Your request has been denied Your PA request has been denied. Additional information will be provided in the denial communication. We reviewed the diagnosis and information we received with the request, but it did not allow us to approve the requested medication for the following reason: The diagnosis submitted is not a covered diagnosis.?*Please note: The following medications (included in this class) are not approvable for the submitted diagnosis: dexlansoprazole, esomeprazole, lansoprazole, omeprazole, pantoprazole, rabeprazole. With PA it did not allow the office to enter a dx only pick from what was there. None of dx was GERD so picked other. Will see about appeal, although Goodrx would be very affordable. ANASTASIA SIMPSON (Patel: [id number]) - [id number] Omeprazole 20MG dr capsules status: PA Request Created: August 24, 2024 Sent: August 29, 2024 Unable to complete this electronically. Will try on covermymeds Electronic PA requested. Prior Authorization Documentation Prior authorization requested for the following medication: Medication: Omeprazole Provider: Dr. Scruggs Insurance Company Name: [employer] Phone number: Patient ID number: [id number] RXBIN: [id number] RXGRP: [id number] Pharmacy Name: [facility] Telephone number: [phone] Nati Raya RN documented in this encounter [facility] 08-30-2024 History of Present illness Narrative Radiology Service Progress Note PATIENT NAME: Anastasia Simpson DATE OF SERVICE: August 30, 2024 TIME: 7:20 AM PATIENT IDENTITY VERIFICATION COMPLETED USING TWO (2) IDENTIFIERS: Name and Date of confirmed by patient verbally. FALL SCREENING: Has the patient had 2 falls in the last year or 1 fall with injury or currently using an Ambulatory Assistive Device (Walker, Cane, Wheelchair, Crutches, etc.)? No PATIENT GENDER DATA: Female. status: : No status: NO. PATIENT RELEVANT IMPLANT DATA REVIEWED: Not Applicable PATIENT PRESENTS WITH AN IMPLANTABLE OR ATTACHED ZINC PLATE GRAINER: No RADIOLOGY DEPARTMENT: Mammography PERIPHERAL IV DATA: Not applicable SIGNED BY: Jerrod Minor August 30, 2024 7:20 AM documented in this encounter [facility] 08-30-2024 Note HNO ID: [id number] Author: JEMIMA THOMPSON Mammo Tech Service: ? Author Type: Risk Tech Type: Progress Notes Filed: 08/30/2024 07:20 Note Text: Radiology Service Progress Note PATIENT NAME: Anastasia Simpson DATE OF SERVICE: August 30, 2024 TIME: 7:20 AM PATIENT IDENTITY VERIFICATION COMPLETED USING TWO (2) IDENTIFIERS: Name and Date of confirmed by patient verbally. FALL SCREENING: Has the patient had 2 falls in the last year or 1 fall with injury or currently using an Ambulatory Assistive Device (Walker, Cane, Wheelchair, Crutches, etc.)? No PATIENT GENDER DATA: Female. status: : No status: NO. PATIENT RELEVANT IMPLANT DATA REVIEWED: Not Applicable PATIENT PRESENTS WITH AN IMPLANTABLE OR ATTACHED ZINC PLATE GRAINER: No RADIOLOGY DEPARTMENT: Mammography PERIPHERAL IV DATA: Not applicable SIGNED BY: Jerrod Minor August 30, 2024 7:20 AM [facility] 08-29-2024 Telephone encounter Note Appeal requested faxed to [phone]. [facility] 08-29-2024 Telephone encounter Note Your request has been denied Your PA request has been denied. Additional information will be provided in the denial communication. We reviewed the diagnosis and information we received with the request, but it did not allow us to approve the requested medication for the following reason: The diagnosis submitted is not a covered diagnosis.?*Please note: The following medications (included in this class) are not approvable for the submitted diagnosis: dexlansoprazole, esomeprazole, lansoprazole, omeprazole, pantoprazole, rabeprazole. With PA it did not allow the office to enter a dx only pick from what was there. None of dx was GERD so picked other. Will see about appeal, although Goodrx would be very affordable. [facility] 08-29-2024 Telephone encounter Note Received fax from insurance that PA is current for Emgality and another authorization is not needed at this time. Scanned to patients records. ALFONSO Murphy [facility] 08-29-2024 Miscellaneous Notes Received fax from insurance that PA is current for Emgality and another authorization is not needed at this time. Scanned to patients records. ALFONSO Murphy Received PA renewal request for patients Emgality. Previous PA 08/28/24. Submitted on CoverMyMeds using Patel: [id number]. Please watch for determination. Thank you. ALFONSO Murphy documented in this encounter [facility] 08-29-2024 Telephone encounter Note ANASTASIA DEBBIE (Patel: [id number]) - [id number] Omeprazole 20MG dr capsules status: PA Request Created: August 24, 2024 Sent: August 29, 2024 [facility] 08-29-2024 Telephone encounter Note Unable to complete this electronically. Will try on covermymeds [facility] 08-29-2024 Telephone encounter Note Electronic PA requested. [facility] 08-29-2024 Telephone encounter Note Prior Authorization Documentation Prior authorization requested for the following medication: Medication: Omeprazole Provider: Dr. Scruggs Insurance Company Name: [employer] Phone number: Patient ID number: [id number] RXBIN: [id number] RXGRP: [id number] Pharmacy Name: [facility] Telephone number: [phone] Nati Raya RN [facility] 08-29-2024 Telephone encounter Note Received PA renewal request for patients Emgality. Previous PA 08/28/24. Submitted on CoverMyMeds using Patel: [id number]. Please watch for determination. Thank you. ALOFNSO Murphy [facility] 08-24-2024 Telephone encounter Note Prescription Refill Information The patient has been identified by name and date of : Yes Caregiver verified no other encounters exist for this prescription request: Yes Caregiver confirmed with patient/requestor that no other refills are due, in the near future, with this provider at this time: Yes The last office visit in the department: 07-04-24 Does the patient have a future office visit with this provider/department: Yes Requested Prescriptions Pending Prescriptions Disp Refills omeprazole (PRILOSEC) 20 mg capsule 90 capsule 1 Sig: Take 1 capsule by mouth daily before breakfast. 1/2 hr before meal. Patient also asking for nausea medication. Patient states that there are no refills of the omeprazole and she is out of the medication Zelda Sexton August 24, 2024 10:28 AM [facility] 08-24-2024 Miscellaneous Notes Prescription Refill Information The patient has been identified by name and date of : Yes Caregiver verified no other encounters exist for this prescription request: Yes Caregiver confirmed with patient/requestor that no other refills are due, in the near future, with this provider at this time: Yes The last office visit in the department: 07-04-24 Does the patient have a future office visit with this provider/department: Yes Requested Prescriptions Pending Prescriptions Disp Refills omeprazole (PRILOSEC) 20 mg capsule 90 capsule 1 Sig: Take 1 capsule by mouth daily before breakfast. 1/2 hr before meal. Patient also asking for nausea medication. Patient states that there are no refills of the omeprazole and she is out of the medication Zelda Sexton August 24, 2024 10:28 AM documented in this encounter [facility] 08-10-2024 Telephone encounter Note Images from the original note were not included. Called patient, no answer. VM identify pt by first name. LVM regarding message below. Marjorie Carbajal LPN August 10, 2024 1:02 PM Robyn Harris PA-C [facility] Queener49 minutes ago (12:08 PM) MQ This could be an allergic reaction, would encourage patient to stop this medication and follow up to discuss other medication options. If she has any trouble breathing please go to the ER. Robyn Harris PA-C [facility] 08-10-2024 Miscellaneous Notes Images from the original note were not included. Called patient, no answer. VM identify pt by first name. LVM regarding message below. Marjorie Carbajal LPN August 10, 2024 1:02 PM Robyn Harris PA-C [employer] [facility]ener49 minutes ago (12:08 PM) MQ This could be an allergic reaction, would encourage patient to stop this medication and follow up to discuss other medication options. If she has any trouble breathing please go to the ER. Robyn Harris PA-C Patient calling she started the Emgality injections after having her appt mid June. Patient said a week after the first injection, the injection site is red and warm to touch, has tiny bumps, tender to touch. Patient said the second injection site is doing the same thing, a week after the injection, she said gets more red after each day goes on. Patient asking if that a normal thing after the injections? Patient asking if she needs to stop taking the injections? Please advise documented in this encounter [facility] 08-08-2024 Telephone encounter Note Patient calling she started the Emgality injections after having her appt mid June. Patient said a week after the first injection, the injection site is red and warm to touch, has tiny bumps, tender to touch. Patient said the second injection site is doing the same thing, a week after the injection, she said gets more red after each day goes on. Patient asking if that a normal thing after the injections? Patient asking if she needs to stop taking the injections? Please advise [facility] 08-04-2024 Telephone encounter Note Prescription Refill Information The patient has been identified by name and date of : Yes Caregiver verified no other encounters exist for this prescription request: Yes Caregiver confirmed with patient/requestor that no other refills are due, in the near future, with this provider at this time: Yes The last office visit in the department: 07/04/24 Does the patient have a future office visit with this provider/department: Yes: 09/19/24 Requested Prescriptions Pending Prescriptions Disp Refills HYDROcodone-acetaminophen (NORCO) 5-325 mg per tablet 60 tablet 0 Sig: Take 1 tablet by mouth every 6 hours as needed for up to 31 days. Magdalena Hopper MA August 04, 2024 9:11 AM [facility] 08-04-2024 Miscellaneous Notes Prescription Refill Information The patient has been identified by name and date of : Yes Caregiver verified no other encounters exist for this prescription request: Yes Caregiver confirmed with patient/requestor that no other refills are due, in the near future, with this provider at this time: Yes The last office visit in the department: 07/04/24 Does the patient have a future office visit with this provider/department: Yes: 09/19/24 Requested Prescriptions Pending Prescriptions Disp Refills HYDROcodone-acetaminophen (NORCO) 5-325 mg per tablet 60 tablet 0 Sig: Take 1 tablet by mouth every 6 hours as needed for up to 31 days. Magdalena Hopper MA August 04, 2024 9:11 AM documented in this encounter [facility] 08-03-2024 Note HNO ID: [id number] Author: JUDITH NEWMAN APRN.SCHOOL TRANSPORTATION SUPERVISOR Service: ? Author Type: Nurse Practitioner Type: Progress Notes Filed: 08/03/2024 07:55 Note Text: Area Operations Director offered: Patient declines. Anastasia is a 48 year old who presents for an annual gynecologic exam without complaints. Menses: cycles every 25-30 days and 5 days of flow. Has started skip some Contraception: none HPV vaccine: No Last Pap: 07/30/2018 normal HPV: 07/27/2018 negative History of abnormal pap: No Last mammogram: 2022normal Sexually active: Yes Patient concerns for STD exposure: No. Pain with intercourse: No Postcoital bleeding: No OB History T0 L1 SAB0 IAB0 Ectopic0 Multiple0 Live Births0 Comment: 1 vaginal delivery Automotive Consultant History LMP: 07/30/2024 (Approximate), Having periods Age at Menarche: Age at First : Age at Menopause: Automotive Consultant History Comments: Sexual Activity: Yes; Male; ablation Contraception: No contraception data on record PAST MEDICAL HISTORY Diagnosis Date Basal cell carcinoma 2011, 2016 multiple sites High blood pressure Moderate major depression, single episode (HCC) 11/13/2020 PMH - PAST MEDICAL HISTORY OF irritable bowel syndrome PMH - PAST MEDICAL HISTORY OF back pain PMH - PAST MEDICAL HISTORY OF Injections L4-L5 by Dr Knox in [place] PAST SURGICAL HISTORY Procedure Laterality Date COLONOSCOPY FLX DX W/COLLJ SPEC WHEN PFRMD 02/28/2020 Colonoscopy-Dr Bryant ESOPHAGOGASTRODUODENOSCOPY TRANSORAL DIAGNOSTIC 02/28/2020 EGD-Dr Bryant LAPAROSCOPIC CHOLECYSTECTOMY 08/26/2018 Dr. Dashawn SAENZ TRUNK/ARM/LEG 1ST STAGE 5 BLOCKS multiple BCC PAST SURGICAL HISTORY OF 02/2003 x2 discectomy L4-5 S1 PAST SURGICAL HISTORY OF DANDC PAST SURGICAL HISTORY OF 07/11/2004 L5-S1 anterior lumbar interbody fusion with posterior L5-S1 translaminar facet screw on left side and a facet joint screw on the right side, and this would be a 360-degree fusion PAST SURGICAL HISTORY OF 1999 lasix eye surgery PAST SURGICAL HISTORY OF 2003 wisdom teeth S THERMACHOICE UTERINE BALLOON 01/02/15 Hysteroscopy w/ endometrial ablation FAMILY HISTORY Problem Relation Age of Onset Lipids Mother Headache Mother Ischemic Heart Disease Maternal Grandmother Skin Cancer Maternal Grandmother 60 Ischemic Heart Disease Maternal Grandfather other (Melanoma [Other]) Maternal Grandfather 81 Hypertension Paternal Grandmother all grandparents Breast Cancer Paternal Grandmother 66 Breast Cancer Paternal Aunt 45 bilateral Colon Cancer Paternal Aunt 55 other (Kidney Cancer [Other]) Paternal Aunt 55 Breast Cancer Paternal Aunt 40s Breast Cancer Maternal Aunt 50s SOCIAL HISTORY Social History Tobacco Use Smoking status: Never Smokeless tobacco: Never Vaping Use Vaping status: Never Used Substance Use Topics Alcohol use: No Drug use: No REVIEW OF SYSTEMS Abdomen: No abdominal pain, nausea, vomiting, diarrhea, or constipation. No bloating, early satiety, indigestion, or increased flatulence. Bladder: No dysuria, gross hematuria, urinary frequency, urinary urgency, +stress incontinence. Breast: No breast lumps, nipple d/c, overlying skin changes, redness or skin retraction. Allergies and current medication updated:Yes SENSITIVE EXAM: The sensitive examination was discussed with the Patient or Patient's Authorized Glass Melt Operator. As applicable, any other physician, advance practice provider, medical student, or other health professional student that will be observing or involved in the sensitive examination for educational or training purposes was discussed with the Patient or Authorized Glass Melt Operator. The Patient or Authorized Glass Melt Operator has agreed to proceed with the sensitive examination. (Sensitive examination includes inspection and/or palpation of the breasts, pelvis, prostate and anorectal regions). EXAM: BP 102/60 Ht 5' 6 (1.68m) Wt 141 lb (64.0kg) LMP 07/30/2024 BMI 22.77 kg/(m2). GENERAL: pleasant, female in no apparent distress HEENT: Normocephalic, atraumatic, mucus membranes moist, and no lesions NECK: Supple, full range of motion, no adenopathy, and thyroid normal DERMATOLOGY: Normal, without lesions, non-icteric, and non-hirsute BREAST: soft, non-tender, symmetric, no dominant mass, normal nipple-areolar complex, no lymphadenopathy, and no nipple discharge CHEST: Normal inspiratory effort ABDOMEN: soft, non-tender, and no masses PELVIC: external genitalia normal, normal Bartholin's glands, urethra, Carmel's glands, no vulvar lesions, no cervical lesions, good vaginal support, physiologic discharge present, normal appearing perineal body and perianal region BIMANUAL: uterus normal size, shape and consistency, no adnexal masses, and non-tender RECTOVAGINAL: deferred. NEURO: alert and oriented x3,exam grossly non-focal EXTREMITIES: normal ASSESSMENT/PLAN: 1) Health maint (more content not included)... [facility] 08-03-2024 History of Present illness Narrative Area Operations Director offered: Patient declines. Anastasia is a 48 year old who presents for an annual gynecologic exam without complaints. Menses: cycles every 25-30 days and 5 days of flow. Has started skip some Contraception: none HPV vaccine: No Last Pap: 07/30/2018 normal HPV: 07/27/2018 negative History of abnormal pap: No Last mammogram: 2022normal Sexually active: Yes Patient concerns for STD exposure: No. Pain with intercourse: No Postcoital bleeding: No OB History T0 L1 SAB0 IAB0 Ectopic0 Multiple0 Live Births0 Comment: 1 vaginal delivery Automotive Consultant History LMP: 07/30/2024 (Approximate), Having periods Age at Menarche: Age at First : Age at Menopause: Automotive Consultant History Comments: Sexual Activity: Yes; Male; ablation Contraception: No contraception data on record PAST MEDICAL HISTORY Diagnosis Date Basal cell carcinoma 2011, 2016 multiple sites High blood pressure Moderate major depression, single episode (HCC) 11/13/2020 PMH - PAST MEDICAL HISTORY OF irritable bowel syndrome PMH - PAST MEDICAL HISTORY OF back pain PMH - PAST MEDICAL HISTORY OF Injections L4-L5 by Dr Knox in [place] PAST SURGICAL HISTORY Procedure Laterality Date COLONOSCOPY FLX DX W/COLLJ SPEC WHEN PFRMD 02/28/2020 Colonoscopy-Dr Bryant ESOPHAGOGASTRODUODENOSCOPY TRANSORAL DIAGNOSTIC 02/28/2020 EGD-Dr Bryant LAPAROSCOPIC CHOLECYSTECTOMY 08/26/2018 Dr. Bryant MOHJanessa TRUNK/ARM/LEG 1ST STAGE 5 BLOCKS multiple BCC PAST SURGICAL HISTORY OF 02/2003 x2 discectomy L4-5 S1 PAST SURGICAL HISTORY OF D&C PAST SURGICAL HISTORY OF 07/11/2004 L5-S1 anterior lumbar interbody fusion with posterior L5-S1 translaminar facet screw on left side and a facet joint screw on the right side, and this would be a 360-degree fusion PAST SURGICAL HISTORY OF 1999 lasix eye surgery PAST SURGICAL HISTORY OF 2003 wisdom teeth S THERMACHOICE UTERINE BALLOON 01/02/15 Hysteroscopy w/ endometrial ablation FAMILY HISTORY Problem Relation Age of Onset Lipids Mother Headache Mother Ischemic Heart Disease Maternal Grandmother Skin Cancer Maternal Grandmother 60 Ischemic Heart Disease Maternal Grandfather other (Melanoma [Other]) Maternal Grandfather 81 Hypertension Paternal Grandmother all grandparents Breast Cancer Paternal Grandmother 66 Breast Cancer Paternal Aunt 45 bilateral Colon Cancer Paternal Aunt 55 other (Kidney Cancer [Other]) Paternal Aunt 55 Breast Cancer Paternal Aunt 40s Breast Cancer Maternal Aunt 50s SOCIAL HISTORY Social History Tobacco Use Smoking status: Never Smokeless tobacco: Never Vaping Use Vaping status: Never Used Substance Use Topics Alcohol use: No Drug use: No REVIEW OF SYSTEMS Abdomen: No abdominal pain, nausea, vomiting, diarrhea, or constipation. No bloating, early satiety, indigestion, or increased flatulence. Bladder: No dysuria, gross hematuria, urinary frequency, urinary urgency, +stress incontinence. Breast: No breast lumps, nipple d/c, overlying skin changes, redness or skin retraction. Allergies and current medication updated:Yes SENSITIVE EXAM: The sensitive examination was discussed with the Patient or Patient's Authorized Glass Melt Operator. As applicable, any other physician, advance practice provider, medical student, or other health professional student that will be observing or involved in the sensitive examination for educational or training purposes was discussed with the Patient or Authorized Glass Melt Operator. The Patient or Authorized Glass Melt Operator has agreed to proceed with the sensitive examination. (Sensitive examination includes inspection and/or palpation of the breasts, pelvis, prostate and anorectal regions). EXAM: BP 102/60 Ht 5' 6 (1.68m) Wt 141 lb (64.0kg) LMP 07/30/2024 BMI 22.77 kg/(m^2). GENERAL: pleasant, female in no apparent distress HEENT: Normocephalic, atraumatic, mucus membranes moist, and no lesions NECK: Supple, full range of motion, no adenopathy, and thyroid normal DERMATOLOGY: Normal, without lesions, non-icteric, and non-hirsute BREAST: soft, non-tender, symmetric, no dominant mass, normal nipple-areolar complex, no lymphadenopathy, and no nipple discharge CHEST: Normal inspiratory effort ABDOMEN: soft, non-tender, and no masses PELVIC: external genitalia normal, normal Bartholin's glands, urethra, Carmel's glands, no vulvar lesions, no cervical lesions, good vaginal support, physiologic discharge present, normal appearing perineal body and perianal region BIMANUAL: uterus normal size, shape and consistency, no adnexal masses, and non-tender RECTOVAGINAL: deferred. NEURO: alert and oriented x3,exam grossly non-focal EXTREMITIES: normal ASSESSMENT/PLAN: 1) Health maintenance: Pap done with HPV. Mammogram ordered. Nutrition, exercise and routine health maintenance exams reviewed. Calcium/Vitamin D supplementation information provided. Colon cancer screening: up to date with screening due in 2031 2) Contraception: none. Contraceptive options reviewed and information provided. 3) STD screening: Declined STD check. 4) Follow up one year or sooner as needed Judith Newman APRN.SCHOOL TRANSPORTATION SUPERVISOR documented in this encounter [facility] 07-31-2024 Telephone encounter Note Pt seen results on MyChart Kaveh Walters MA [facility] 07-31-2024 Miscellaneous Notes Pt seen results on MyChart Kaveh Walters MA Left VM instructing patient to return call to receive results. Donna Chen MA Call Patient let her know the official reading of the EKG came back and was negative. Keep the follow-up appointment with primary care documented in this encounter [facility] 07-29-2024 Telephone encounter Note Left VM instructing patient to return call to receive results. Donna Chen MA [facility] 07-29-2024 Telephone encounter Note Call Patient let her know the official reading of the EKG came back and was negative. Keep the follow-up appointment with primary care [facility] 07-28-2024 History of Present illness Narrative Radiology Service Progress Note PATIENT NAME: Anastasia Simpson DATE OF SERVICE: July 28, 2024 TIME: 1:28 PM PATIENT IDENTITY VERIFICATION COMPLETED USING TWO (2) IDENTIFIERS: Name and Date of confirmed by patient verbally. FALL SCREENING: Has the patient had 2 falls in the last year or 1 fall with injury or currently using an Ambulatory Assistive Device (Walker, Cane, Wheelchair, Crutches, etc.)? No PATIENT GENDER DATA: Female. status: : No status: NO. PATIENT RELEVANT IMPLANT DATA REVIEWED: Yes PATIENT PRESENTS WITH AN IMPLANTABLE OR ATTACHED ZINC PLATE GRAINER: No RADIOLOGY DEPARTMENT: General X-ray: Exam(s) Completed: Spine X-Ray(s): Lumbar AP / LAT / L5-S1 and Sacrum/Coccyx PERIPHERAL IV DATA: Not applicable SIGNED BY: RT Shannen(R) July 28, 2024 1:28 PM documented in this encounter [facility] 07-28-2024 Note HNO ID: [id number] Author: HENRI DIAZ RT(R) Service: ? Author Type: Risk Tech Type: Progress Notes Filed: 07/28/2024 13:41 Note Text: Radiology Service Progress Note PATIENT NAME: Anastasia Simpson DATE OF SERVICE: July 28, 2024 TIME: 1:28 PM PATIENT IDENTITY VERIFICATION COMPLETED USING TWO (2) IDENTIFIERS: Name and Date of confirmed by patient verbally. FALL SCREENING: Has the patient had 2 falls in the last year or 1 fall with injury or currently using an Ambulatory Assistive Device (Walker, Cane, Wheelchair, Crutches, etc.)? No PATIENT GENDER DATA: Female. status: : No status: NO. PATIENT RELEVANT IMPLANT DATA REVIEWED: Yes PATIENT PRESENTS WITH AN IMPLANTABLE OR ATTACHED ZINC PLATE GRAINER: No RADIOLOGY DEPARTMENT: General X-ray: Exam(s) Completed: Spine X-Ray(s): Lumbar AP / LAT / L5-S1 and Sacrum/Coccyx PERIPHERAL IV DATA: Not applicable SIGNED BY: RT Shannen(R) July 28, 2024 1:28 PM [facility] 07-28-2024 Note HNO ID: [id number] Author: DILLON KIM APRN.SCHOOL [employer]SPORTATION SUPERVISOR Service: ? Author Type: Nurse Practitioner Type: Progress Notes Filed: 07/28/2024 14:53 Note Text: Subjective Patient came in with complaints of lower back pain bilaterally. Patient says she normally has back pain on the right due to previous surgeries. Patient says she never usually has it on the left. Patient says she was in a car for 3 hours slept in a hotel bed and another 3-hour drive home. Patient says that the only thing she has done differently. Denies any injuries to the area. Has had this going on for about 6 days. Said about 6 weeks ago she had a similar pain mixed with a little lower abdominal pain that she had a stat CT for that was negative for any acute findings. Patient also has mild nausea indigestion with some pressure accompanying the lower back pain for the last 6 days. Patient does have a history of indigestion. Patient denies any shortness of breath or other symptoms associated. The history is provided by the patient. No speech language pathologist assistant was used. Review of Systems Constitutional: Negative. Skin: Negative. Objective Physical Exam Constitutional: Appearance: Normal appearance. Cardiovascular: Rate and Rhythm: Normal rate and regular rhythm. Heart sounds: Normal heart sounds. Pulmonary: Effort: Pulmonary effort is normal. Breath sounds: Normal breath sounds. Musculoskeletal: Legs: Comments: Tender in the area marked above when palpated. Neurological: Mental Status: She is alert. PAST MEDICAL HISTORY Diagnosis Date Basal cell carcinoma 2011, 2015 multiple sites High blood pressure Moderate major depression, single episode (HCC) 11/13/2020 PMH - PAST MEDICAL HISTORY OF irritable bowel syndrome PMH - PAST MEDICAL HISTORY OF back pain PMH - PAST MEDICAL HISTORY OF Injections L4-L5 by Dr Knox in [place] PAST SURGICAL HISTORY Procedure Laterality Date COLONOSCOPY FLX DX W/COLLJ SPEC WHEN PFRMD 02/28/2020 Colonoscopy-Dr Bryant ESOPHAGOGASTRODUODENOSCOPY TRANSORAL DIAGNOSTIC 02/28/2020 EGD-Dr Bryant LAPAROSCOPIC CHOLECYSTECTOMY 08/26/2018 Dr. Bryant MOHJanessa TRUNK/ARM/LEG 1ST STAGE 5 BLOCKS multiple BCC PAST SURGICAL HISTORY OF 02/2003 x2 discectomy L4-5 S1 PAST SURGICAL HISTORY OF DANDC PAST SURGICAL HISTORY OF 07/11/2004 L5-S1 anterior lumbar interbody fusion with posterior L5-S1 translaminar facet screw on left side and a facet joint screw on the right side, and this would be a 360-degree fusion PAST SURGICAL HISTORY OF 1999 lasix eye surgery PAST SURGICAL HISTORY OF 2003 wisdom teeth S THERMACHOICE UTERINE BALLOON 01/02/15 Hysteroscopy w/ endometrial ablation ALLERGIES Celestone [Betamethasone Sodium Phosphate], Codeine, Neurontin [Gabapentin], and Sulfa (Sulfonamide Antibiotics) MEDICATIONS valACYclovir (VALTREX) 1 gram tablet Take 1 tablet by mouth two times a day. galcanezumab-gnln 120 mg/mL subcutaneous syringe (EMGALITY) Inject 2 mL subcutaneously once every month. Do not shake. galcanezumab-gnln 120 mg/mL subcutaneous syringe (EMGALITY) Inject 1 mL subcutaneously once every month. Do not shake. SUMAtriptan (IMITREX) 100 mg tablet Take 1 tablet (100 mg) by mouth as needed. HYDROcodone-acetaminophen (NORCO) 5-325 mg per tablet Take 1 tablet by mouth every 6 hours as needed for up to 31 days. omeprazole (PRILOSEC) 20 mg capsule Take 1 capsule by mouth daily before breakfast. 1/2 hr before meal. propranolol ER (INDERAL LA) 60 mg 24 hr capsule Take 1 capsule by mouth once daily. ondansetron orally disintegrating (ZOFRAN ODT) 4 mg disintegrating tablet Take 1 tablet by mouth every 6 hours as needed for nausea/vomiting. escitalopram oxalate (LEXAPRO) 5 mg tablet Take 1 tablet by mouth once daily. Take 1 tab a day for one week and then increase to 2 tabs a day SENNOSIDES 8.6 MG TAB as needed for constipation FAMILY HISTORY Problem Relation Age of Onset Lipids Mother Headache Mother Ischemic Heart Disease Maternal Grandmother Skin Cancer Maternal Grandmother 60 Ischemic Heart Disease Maternal Grandfather other (Melanoma [Other]) Maternal Grandfather 81 Hypertension Paternal Grandmother all grandparents Breast Cancer Paternal Grandmother 66 Breast Cancer Paternal Aunt 45 bilateral Colon Cancer Paternal Aunt 55 other (Kidney Cancer [Other]) Paternal Aunt 55 Breast Cancer Paternal Aunt 40s Breast Cancer Maternal Aunt 50s Social History Tobacco Use Smoking status: Never Smokeless tobacco: Never Vaping Use Vaping status: Never Used Substance Use Topics Alcohol use: No Drug use: No ASSESSMENT/PLAN: 1. Pain - ICD9: 780.96, ICD10: R52 (primary diagnosis) - XR LUMBAR GENERAL 3V AP/LAT/L5-S1 - XR SACRUM/COCCYX 3V AP/LAT * * * * Physician Interpretation * * * * X-ray lumbosacral spine, AP, lateral views Comparison: 09/29/2016 Counting reference: As noted on the prior study there are hypopla (more content not included)... [facility] 07-28-2024 History of Present illness Narrative Images from the original note were not included. Subjective Patient came in with complaints of lower back pain bilaterally. Patient says she normally has back pain on the right due to previous surgeries. Patient says she never usually has it on the left. Patient says she was in a car for 3 hours slept in a hotel bed and another 3-hour drive home. Patient says that the only thing she has done differently. Denies any injuries to the area. Has had this going on for about 6 days. Said about 6 weeks ago she had a similar pain mixed with a little lower abdominal pain that she had a stat CT for that was negative for any acute findings. Patient also has mild nausea indigestion with some pressure accompanying the lower back pain for the last 6 days. Patient does have a history of indigestion. Patient denies any shortness of breath or other symptoms associated. The history is provided by the patient. No speech language pathologist assistant was used. Review of Systems Constitutional: Negative. Skin: Negative. Objective Physical Exam Constitutional: Appearance: Normal appearance. Cardiovascular: Rate and Rhythm: Normal rate and regular rhythm. Heart sounds: Normal heart sounds. Pulmonary: Effort: Pulmonary effort is normal. Breath sounds: Normal breath sounds. Musculoskeletal: Legs: Comments: Tender in the area marked above when palpated. Neurological: Mental Status: She is alert. PAST MEDICAL HISTORY Diagnosis Date Basal cell carcinoma 2011, 2015 multiple sites High blood pressure Moderate major depression, single episode (HCC) 11/13/2020 PMH - PAST MEDICAL HISTORY OF irritable bowel syndrome PMH - PAST MEDICAL HISTORY OF back pain PMH - PAST MEDICAL HISTORY OF Injections L4-L5 by Dr Knox in [place] PAST SURGICAL HISTORY Procedure Laterality Date COLONOSCOPY FLX DX W/COLLJ SPEC WHEN PFRMD 02/28/2020 Colonoscopy-Dr Bryant ESOPHAGOGASTRODUODENOSCOPY TRANSORAL DIAGNOSTIC 02/28/2020 EGD-Dr Bryant LAPAROSCOPIC CHOLECYSTECTOMY 08/26/2018 Dr. Bryant MOHS TRUNK/ARM/LEG 1ST STAGE 5 BLOCKS multiple BCC PAST SURGICAL HISTORY OF 02/2003 x2 discectomy L4-5 S1 PAST SURGICAL HISTORY OF D&C PAST SURGICAL HISTORY OF 07/11/2004 L5-S1 anterior lumbar interbody fusion with posterior L5-S1 translaminar facet screw on left side and a facet joint screw on the right side, and this would be a 360-degree fusion PAST SURGICAL HISTORY OF 1999 lasix eye surgery PAST SURGICAL HISTORY OF 2003 wisdom teeth S THERMACHOICE UTERINE BALLOON 01/02/15 Hysteroscopy w/ endometrial ablation ALLERGIES Celestone [Betamethasone Sodium Phosphate], Codeine, Neurontin [Gabapentin], and Sulfa (Sulfonamide Antibiotics) MEDICATIONS valACYclovir (VALTREX) 1 gram tablet Take 1 tablet by mouth two times a day. galcanezumab-gnln 120 mg/mL subcutaneous syringe ([facility]) Inject 2 mL subcutaneously once every month. Do not shake. galcanezumab-gnln 120 mg/mL subcutaneous syringe (EMGALITY) Inject 1 mL subcutaneously once every month. Do not shake. SUMAtriptan (IMITREX) 100 mg tablet Take 1 tablet (100 mg) by mouth as needed. HYDROcodone-acetaminophen (NORCO) 5-325 mg per tablet Take 1 tablet by mouth every 6 hours as needed for up to 31 days. omeprazole (PRILOSEC) 20 mg capsule Take 1 capsule by mouth daily before breakfast. 1/2 hr before meal. propranolol ER (INDERAL LA) 60 mg 24 hr capsule Take 1 capsule by mouth once daily. ondansetron orally disintegrating (ZOFRAN ODT) 4 mg disintegrating tablet Take 1 tablet by mouth every 6 hours as needed for nausea/vomiting. escitalopram oxalate (LEXAPRO) 5 mg tablet Take 1 tablet by mouth once daily. Take 1 tab a day for one week and then increase to 2 tabs a day SENNOSIDES 8.6 MG TAB as needed for constipation FAMILY HISTORY Problem Relation Age of Onset Lipids Mother Headache Mother Ischemic Heart Disease Maternal Grandmother Skin Cancer Maternal Grandmother 60 Ischemic Heart Disease Maternal Grandfather other (Melanoma [Other]) Maternal Grandfather 81 Hypertension Paternal Grandmother all grandparents Breast Cancer Paternal Grandmother 66 Breast Cancer Paternal Aunt 45 bilateral Colon Cancer Paternal Aunt 55 other (Kidney Cancer [Other]) Paternal Aunt 55 Breast Cancer Paternal Aunt 40s Breast Cancer Maternal Aunt 50s Social History Tobacco Use Smoking status: Never Smokeless tobacco: Never Vaping Use Vaping status: Never Used Substance Use Topics Alcohol use: No Drug use: No ASSESSMENT/PLAN: 1. 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 There are 4 nonrib-bearing lumbar-type vertebrae which are described as L1 through L4. The S1 segment is transitional with bilateral lumbarization. There is normal architecture and mineralization of the bones. No fracture is visualized. Again noted is fusion of L4 with S1 with anterior and posterior screws and an interbody spacer. Hardware appears intact. Alignment is unchanged. The intravertebral disc spaces appear well preserved. IMPRESSION IMPRESSION: Stable examination. No acute findings are identified. Tubing Tester: NAGI Transcribe Date/Time: Jul 28 2024 1:52P Dictated by : BIRD BLOUNT MD * * * * Physician Interpretation * * * * EXAMINATION: XR SACRUM/COCCYX 3V AP/LAT CLINICAL HISTORY: Acute bilateral low back pain Pain Technique: XR SACRUM/COCCYX 3V AP/LAT -- NOT APPLICABLE with 3 views on 3 images Comparison: None RESULT: No acute fractures are identified. No osseous destructive abnormalities are visualized. Postsurgical changes are present at the lumbosacral junction status post interbody fusion. The surgical hardware appears intact. IMPRESSION IMPRESSION: No acute findings are identified. Tubing Tester: NAGI Transcribe Date/Time: Jul 28 2024 1:52P Dictated by : BIRD BLOUNT MD 2. Nausea - ICD9: 787.02, ICD10: R11.0 - ECG COMPLETE - UA DIP, URINE (POC) - URINE CULTURE Prescribed prednisone which she said she tolerates well. Patient was also prescribed Flexeril. Patient was educated about proper use of medication and supportive therapies. Patient was educated that Flexeril will make her drowsy. Patient understands care plan and is agreeable to this care plan. Patient is set up to follow-up with primary care tomorrow for possible further testing and evaluation. Dillon Kim APRN.BOONE documented in this encounter [facility] 07-25-2024 Telephone encounter Note The following approved medication requests have been transmitted electronically. Requested Prescriptions Pending Prescriptions Disp Refills valACYclovir (VALTREX) 1 gram tablet 2 tablet 3 Sig: Take 1 tablet by mouth two times a day. Coby Sotelo APRN.CNP [facility] 07-25-2024 Miscellaneous Notes The following approved medication requests have been transmitted electronically. Requested Prescriptions Pending Prescriptions Disp Refills valACYclovir (VALTREX) 1 gram tablet 2 tablet 3 Sig: Take 1 tablet by mouth two times a day. Coby Sotelo APRN.CNP Prescription Refill Information The patient has been identified by name and date of : Yes Caregiver verified no other encounters exist for this prescription request: Yes Caregiver confirmed with patient/requestor that no other refills are due, in the near future, with this provider at this time: Yes The last office visit in the department: 07/07/24 Does the patient have a future office visit with this provider/department: Yes 09/19/24 Requested Prescriptions Pending Prescriptions Disp Refills valACYclovir (VALTREX) 1 gram tablet 2 tablet 3 Sig: Take 1 tablet by mouth two times a day. Jaylen Tubbs LPN July 25, 2024 11:04 AM documented in this encounter [facility] 07-25-2024 Telephone encounter Note Prescription Refill Information The patient has been identified by name and date of : Yes Caregiver verified no other encounters exist for this prescription request: Yes Caregiver confirmed with patient/requestor that no other refills are due, in the near future, with this provider at this time: Yes The last office visit in the department: 07/07/24 Does the patient have a future office visit with this provider/department: Yes 09/19/24 Requested Prescriptions Pending Prescriptions Disp Refills valACYclovir (VALTREX) 1 gram tablet 2 tablet 3 Sig: Take 1 tablet by mouth two times a day. Jaylen Tubbs LPN July 25, 2024 11:04 AM [facility] 07-18-2024 Telephone encounter Note PA approved through 08/28/2024. ALFONSO Murphy [facility] 07-18-2024 Miscellaneous Notes PA approved through 08/28/2024. ALFONSO Murphy PA started via CoverMyMeds, Patel- [id number]. Please await decision. Yoko Chatterjee LPN In review of chart there are two orders written for Emgality. First order on 07/12 is for patient to take 2 mL (240 mg) every month. Separate order on 07/12 is for patient to take 1 mL (120 mg) every month. OV notes that first dose of 2 mL is a loading dose. Please review and advise. Thank you. ALFONSO Murphy Patient calling when the pharmacy runs the first month of the Emgality it is not covered since it is 2 syringes, 240 mg. But the monthly 120 mg is covered. Patient asking if a prior authorization needs to done separately for the first month dosing? documented in this encounter [facility] 07-15-2024 Telephone encounter Note PA started via CoverMyMeds, Patel- [id number]. Please await decision. Yoko Chatterjee LPN [facility] 07-14-2024 Telephone encounter Note In review of chart there are two orders written for Emgality. First order on 07/12 is for patient to take 2 mL (240 mg) every month. Separate order on 07/12 is for patient to take 1 mL (120 mg) every month. OV notes that first dose of 2 mL is a loading dose. Please review and advise. Thank you. ALFONSO Murphy [facility] 07-14-2024 Telephone encounter Note Patient calling when the pharmacy runs the first month of the Emgality it is not covered since it is 2 syringes, 240 mg. But the monthly 120 mg is covered. Patient asking if a prior authorization needs to done separately for the first month dosing? [facility] 07-13-2024 Telephone encounter Note PA started via Cover My Meds for Emgality. Medication has been approved. Yoko Chatterjee LPN [facility] 07-13-2024 Miscellaneous Notes PA started via Cover My Meds for Emgality. Medication has been approved. Yoko Chatterjee LPN documented in this encounter [facility] 07-12-2024 Telephone encounter Note Calling for xray results from 07/04/24, record says it is still in process. Spoke to someone in radiology & she is going to check into this, she states they are still behind getting xrays read. Kimmy Willis LPN [facility] 07-12-2024 Miscellaneous Notes Calling for xray results from 07/04/24, record says it is still in process. Spoke to someone in radiology & she is going to check into this, she states they are still behind getting xrays read. Kimmy Willis LPN documented in this encounter [facility] 07-12-2024 Instructions Robyn Harris PA-C - 07/12/2024 7:31 AM EDT Preventative: Emgality injection (first dose is two injections, then every month is one injection) Abortive: Imitrex with onset of headache See eye doctor annually Follow up in 3-4 months Headache Preventive Treatment: Please keep in mind that it takes 4-6 weeks for the medication to start working well and 2-3 months at the appropriate dose before deciding if it will be useful or not. If it is not helping at all by this time, then we will discuss other medications to try. Supplements may take 3-6 months until you see full effect. Natural supplements: Magnesium Oxide 500 mg at bed Coenzyme Q10 300 mg in AM Vitamin B2- 200 mg twice a day Feverfew 50 mg twice a day Vitamins and herbs that show potential Magnesium: Magnesium (250 mg twice a day or 500 mg at bed) has a relaxant effect on smooth muscles such as blood vessels. Individuals suffering from frequent or daily headache usually have low magnesium levels which can be increase with daily supplementation of 400-750 mg. Three trials found 40-90% average headache reduction when used as a preventative. Magnesium also demonstrated the benefit in menstrually related migraine. Magnesium is part of the messenger system in the serotonin cascade and it is a good muscle relaxant. It is also useful for constipation which can be a side effect of other medications used to treat migraine. Good sources include nuts, whole grains, and tomatoes. Magnesium comes in many different forms: Magnesium glycinate is a good choice for those with a sensitive stomach who have gastrointestinal side effects such as diarrhea with other forms of magnesium. It is anecdotally also helpful with anxiety and sleep. Magnesium threonate also has low risk of gastrointestinal side effects and anecdotally helpful with cognitive function and brain fog symptoms. Magnesium malate has low gastrointestinal side effects and is reportedly more energizing and anecdotally often helpful in fibromyalgia and chronic fatigue syndrome. Magnesium citrate is one of the most studied, popular, and well-absorbed forms of magnesium. It can also be mixed easily with liquids if you can't take pills. However, it comes with a higher risk of diarrhea and gastrointestinal side effects, although this could be helpful for those with constipation. Magnesium oxide is also well studied, cheap, and often used for heartburn and indigestion. However, it is not well absorbed and can have some laxative side effects as well, so can also be helpful for constipation. Riboflavin (vitamin B 2) 200 mg twice a day. This vitamin assists nerve cells in the production of ATP a principal energy storing molecule. It is necessary for many chemical reactions in the body. There have been at least 3 clinical trials of riboflavin using 400 mg per day all of which suggested that migraine frequency can be decreased. All 3 trials showed significant improvement in over half of migraine sufferers. The supplement is found in bread, cereal, milk, meat, and poultry. Most Americans get more riboflavin than the recommended daily allowance, however riboflavin deficiency is not necessary for the supplements to help prevent headache. Feverfew: Feverfew is a common garden herb [place] and popular in [facility] as a treatment for disorders typically controlled by aspirin. The mechanism of action is unknown but is believed to be related to a chemical called parthenolide which helps the body use serotonin more effectively. Serotonin helps prevent migraine and assists with resolution when it occurs. Parthenolide also inhibits the release of histamine which is linked to pain and inflammation. Consistency of active ingredients in different products can be a problem. Some formulations don't have the active ingredient (parthenolide) that prevents migraine. A parthenolide content of 0.2% is generally recommended. Typical dosage is one capsule 3 times a day. Coenzyme Q10: This is present in almost all cells in the body and is critical component for the conversion of energy. Recent studies have shown that a nutritional supplement of CoQ10 can reduce the frequency of migraine attacks by improving the energy production of cells as with riboflavin. Doses of 150 mg twice a day have been shown to be effective. Melatonin: Increasing evidence shows correlation between melatonin secretion and headache conditions. Melatonin supplementation has decreased headache intensity and duration. It is widely used as a sleep aid. Sleep is natures way of dealing with migraine. A dose of 3 mg is recommended to start for headaches including cluster headache. Higher doses up to 15 mg has been reviewed for use in Cluster headache and have been used. The rationale behind using melatonin for cluster is that many theories regarding the cause of Cluster headache center around the disruption of the normal circadian rhythm in the brain. This helps restore the normal circadian rhythm. Aisha: Aisha has a small amount of antihistamine and anti-inflammatory action which may help headache. It is primarily used for nausea and may aid in the absorption of other medications. HEADACHE DIET: Foods and beverages which may trigger migraine Note that only 20% of headache patients are food sensitive. You will know if you are food sensitive if you get a headache consistently 20 minutes to 2 hours after eating a certain food. Only cut out a food if it causes headaches, otherwise you might remove foods you enjoy! What matters most for diet is to eat a well balanced healthy diet full of vegetables and low fat protein, and to not miss meals. Chocolate, other sweets ALL cheeses except cottage and cream cheese Dairy products, yogurt, sour cream, ice cream Liver Meat extracts (Bovril, Marmite, meat tenderizers) Meats or fish which have undergone aging, fermenting, pickling or smoking. These include: Hotdogs,salami,Lox,sausage, mortadellas,smoked salmon, pepperoni, Pickled rico Pods of broad bunn (Estonian beans, Zimbabwean pea pods, Latvian (juaquin) beans, guajardo and navy beans Ripe avocado, ripe banana Yeast extracts or active yeast preparations such as Mohamud's or Talia's (commercial bakes goods are permitted) Tomato based foods, pizza (lasagna, etc.) MSG (monosodium glutamate) is disguised as many things; look for these common aliases: Monopotassium glutamate Autolysed yeast Hydrolysed protein Sodium caseinate flavorings all natural preservatives Nutrasweet Avoid all other foods that convincingly provoke headaches. Headache Prevention Strategies: 1. Maintain a headache diary; learn to identify and avoid triggers. Common triggers include: Emotional triggers: Emotional/Upset family or friends Emotional/Upset occupation Business reversal/success Anticipation anxiety Crisis-serious Post-crisis periodNew job/position Physical triggers: Vacation Day Weekend Strenuous Exercise High Altitude Location New Move Day Physical Illness Oversleep/Not enough sleep Weather changes Light: Photophobia or light sesnitivity treatment involves a balance between desensitization and reduction in overly strong input. Use dark polarized glasses outside, but not inside. Avoid bright or fluorescent light, but do not dim environment to the point that going into a normally lit room hurts. Consider FL-41 tint lenses, which reduce the most irritating wavelengths without blocking too much light. These can be obtained at [employer] or [employer] ([place] Foods: see list above. 2. Limit use of acute treatments (rmws-adb-eczjdak medications, triptans, etc.) to no more than 2 days per week or 10 days per month to prevent medication overuse headache (rebound headache). 3. Follow a regular schedule (including weekends and holidays): Don't skip meals. Eat a balanced diet. 8 hours of sleep nightly. Minimize stress. Exercise 30 minutes per day. Being overweight is associated with a 5 times increased risk of chronic migraine. Keep well hydrated and drink 6-8 glasses of water per day. 4. Initiate non-pharmacologic measures at the earliest onset of your headache. Rest and quiet environment. Relax and reduce stress. Spnebhf3Rgzms is a free socorro that can instruct you on some simple relaxtion and breathing techniques. Http://Upstart is a free website that provides teaching videos on relaxation. Also, there are many apps that can be downloaded for mindful relaxation. An socorro called YOGA NIDRA will help walk you through mindfulness. Cold compresses. 5. Don't wait!! Take the maximum allowable dosage of prescribed medication at the first sign of migraine. 6. Compliance: Take prescribed medication regularly as directed and at the first sign of a migraine. 7. Communicate: Call your physician when problems arise, especially if your headaches change, increase in frequency/severity, or become associated with neurological symptoms (weakness, numbness, slurred speech, etc.). 8. Headache/pain management therapies: Consider various complementary methods, including medication, behavioral therapy, psychological counselling, biofeedback, massage therapy, acupuncture, dry needling, and other modalities. Such measures may reduce the need for medications. Counseling for pain management, where patients learn to function and ignore/minimize their pain, seems to work very well. 9. Recommend changing family's attention and focus away from patient's headaches. Instead, emphasize daily activities. If first question of day is 'How are your headaches/Do you have a headache today?', then patient will constantly think about headaches, thus making them worse. Goal is to re-direct attention away from headaches, toward daily activities and other distractions. 10. Helpful Websites: www.AmericanHeadacheSociety.org www.migrainetrust.org www.headaches.org www.migraine.org.uk www.achenet.org 11. HEADACHE EXPECTATIONS: There are many types of headaches, and only a rare few in which complete relief can be expected. In general, there is no cure for headache, especially migraine based headaches. There is nothing available that completely prevents headaches from occurring, breaking through, or having periodic flare-ups and fluctuations. Regardless of what you are using on a daily basis for prevention, episodic headaches should still be expected, and periods where frequency may escalate and fluctuate are unavoidable. There is no quick fix for most headaches. Furthermore, the longer you have had high frequency headaches (such as chronic daily headache), the longer it will likely take to expect any improvement. In fact, some people will never improve, regardless of how many medications or other treatments we try. Our treatment strategy is to evaluate for possible causes of your headache, although testing is usually always normal, even in cases of daily continuous headaches for years. Most types of headache such as migraine are electrical brain disorders (similar to how epilepsy is an electrical brain disorders). Therefore, there is no testing that will reveal this dysfunctional electrical circuitry such on MRI, or other testing. We try to find a medication that may help lessen the frequency and/or severity of your headaches. The goal is not to completely stop them from happening, although if that happens, great! Different people respond to different medications, and some people just don't respond to anything, so it's usually a matter of trying different options. We can not predict if or when exactly you will respond to a treatment that we provide. Preventive headache medications take 4-6 weeks to start working, and 2-3 months to see full effect, assuming you reach an effective dose. Therefore, calling or messaging frequently because you have a headache flare prior to the 3 month santosh is unlikely to change anything, and unfortunately there is nothing available that will expedite this, so please try to avoid this. Our recommendation will generally be to give it adequate time first. If you are unable to wait it out for medications to work, we can also try IV infusions for some temporary relief. O In general, the best that preventive medications or other treatments (including Botox) are able to offer in migraine management (variable in other headache types) is a 50% improvement in frequency and/or severity of headache. That is our goal, and any additional benefit is considered a bonus. Some people do significantly better than this, others do not get close to this. Therefore, if your headaches are not improving by at least 3 months on your preventive strategy, contact us and we can discuss further adjustments. Keep in mind that complete headache cure is not a realistic expectation. Our Team: The nursing staff, and medical assistants are a major part of YOUR TREATMENT TEAM and will be handling your phone calls, VisualDNAt Messages and inquiries, if any. Unless explicitly told otherwise at the time of your office visit, your study results and ensuing treatment plans will be released via Teak and discussed during your follow-up appointment. MyChart: Please ask the schedulers to give you an activation code. The main way of communication is by righTunehart rather than phone lines, so if you have not signed up, please do so. VisualDNAt is also the way that you can review your labs and testing. We are not able to contact everyone to tell them results are normal. If you do not hear back from us regarding testing you have had, it should be considered normal or within normal range. If you have any questions about the results, you are free to message us. VisualDNAt is meant for simple questions regarding medications, possible side effects, or other simple straight forward questions in limited sentences, rather than multiple paragraphs of discussion. Teak is not meant for, or efficient for these complex questions, extensive questions, extensive medication adjustments, complex new symptoms or concerns. These issues beyond simple questions require a follow up visit with myself, one of our physician assistants, nurse practitioners, or a Virtual Visit via computer or smart phone, as detailed further down. Refills: Please pay attention to when your refills will need to be renewed. Due to the volume of phone calls daily, this could potentially take a few days, although we certainly try to honor your refill requests as soon as we can. You should call at least 1 week in advance of needing a refill to ensure you do not run out of medication. Keep in mind that refill requests on Fridays may not be filled until the following week. In regards to blood work, testing, and radiology reports these are released automatically to the patients. We do not comment on most testing on Impact in a message or commentary unless there is a concern. You will not receive a message from me of the result unless there is a specific concern of the result I need you to address further in care with us or your primary medical team. Make sure to check your my chart email or socorro. As an international referral center for syncope, autonomic dysfunction, general neurology, headache care, neuromuscular disease, and other related conditions, seeing patients from across the world, we do not have the resource of time or staffing to address inquiries for accommodations. As such, we do not provide or complete requests for work accommodations, FMLA, disability, or other such forms. We recommend seeking guidance through your primary care provider for these requests. We are happy to provide our office notes from your visits and other tests or evaluations performed through our clinic, which can be made available upon request to assist you with this process. documented in this encounter [facility] 07-12-2024 Note HNO ID: [id number] Author: ROBYN HARRIS PA-C Service: ? Author Type: Physician Nurse Tech Type: Progress Notes Filed: 07/12/2024 08:05 Note Text: Neurology Outpatient Clinic Date: July 12, 2024 Patient Name: Anastasia Simpson Referring physician: Jacek Abbasi [place] [id number] Consult requested for headaches by Dr. Scruggs. Recommendations will be communicated via shared medical record or US mail. Primary physician: [place] [address] Reason for Evaluation: Headaches Subjective HPI Anastasia Simpson is a 48 year old right-handed female who presents for evaluation of headaches. Dr. Scruggs is the referring physician. Dr. Jacek Scruggs MD is the PCP. Chart review: Seen by PCP on 05/02/24 for headache. BARNES:has been worse recently. Having worsening headaches. Imitrex does help. On lexapro, propranolol, imitrex, norco, zofran. Saw neurology in 2007 for headaches, MRI brain normal at that itme. Patient presents for evaluation of headache. Patient with chronic headache for the last 15+ years, did previously see neurology in 2007. Had normal MRI of the brain at that time. Notes that since that time her headaches have gradually worsened, over the last year or so headaches are occurring longer. Notes that before her headaches usually occur around her menstrual cycle, for 2 to 3 days, now 1 headache is lasting 10 to 12 days. Takes Imitrex during this which is effective but the headache comes back 24 hours later. No new symptoms with the headaches, just lasting longer. Which she usually gets about 2 attacks a month lasting 10 days each, for total about 20 headache days a month. Headaches are migrainous, no autonomic features, no onset with Valsalva, position change or exertion. Did see her eye doctor last year with normal dilated exam. Drinks water throughout the day, no diet changes or lifestyle changes. Does not that she recently changed jobs but notes this was for the better, improving her stress. Does have chronic insomnia, sleeping a few hours a night, this has been the case for many years. Headaches are typically to the top of the head and radiate down the back of the neck. Has gotten an aura about a dozen times in her life, but not consistently. Current Headache treatment Preventative: propranolol Abortive: imitrex Medications effective? sometimes # of doses of abortive medications per month: 10 Previous Medications: Lexapro, propranolol, imitrex, norco, zofran Elavil TPM Gabapentin Headache Description Onset: 15 years Total headache days per month: 20 per month Total headache attacks per month: 2 per month Headache free days: Yes Duration of attacks: 10-12 days Severity of headaches? severe Onset to Peak: gradual Location: top of the head and radiate down. Aura: loses central vision (only a dozen total) Prodrome:none. Accompanying symptoms: phonophobia, nausea, vomiting, vertigo, neck pain. Quality:throbbing and piercing/stabbing. Worse with activity: Yes Triggers: menses. Cough/sneeze/valsalva as trigger: no Positional changes: sometimes getting up too quickly Most common time of day for headache to begin:anytime. Time missed from work or school: have in the past Risk Factors Visual-Motion sensitivity: Yes Tobacco Use: No Alcohol Use: No Other substances: No Caffeine: Yes, occasionally sweet tea, once daily coffee Water- all day Neck Pain /Back Pain: Yes, lumber (three lumbar surgeries) Fibromyalgia: No History of Motor Vehicle Accident: No History of Traumatic Brain Injury and/or Concussion: Yes, two years ago getting to car and tripped and fell, no loc History of severe infection: yes, bacterial and in the hospital for four days (20 years ago) History of Syncope: No Obesity: No, Body mass index is 23 Eye doc- one year ago Preg- no Family History Migraine or other headaches in the family: No Aneurysms in a first degree relative: No Brain tumors in the family: No Other neurological illness in the family: aunt with parkinsons variant, ALS ROS Review of Systems CONSTITUTIONAL: No reported fevers, chills, night sweats, or significant unintentional weight loss. EYES: No visual changes indicated. No eye pain or orbital swelling reported. HEENT: No hearing changes or vertiginous symptoms indicated. No history of nose bleeds reported. RESPIRATORY: No reported cough, wheezing and dyspnea. CARDIOVASCULAR: Negative for significant chest pain, and palpitations per report. GI: Negative for significant abdominal discomfort, blood in stools or black stools reported. No recent reported change in bowel habits. : No reported history of incontinence. No dark/cola colored urine reported. MUSCLOSKELETAL: No history of significant joint pain or swelling, or myalgias reported. SKIN: Negat (more content not included)... [facility] 07-12-2024 History of Present illness Narrative Images from the original note were not included. Neurology Outpatient Clinic Date: July 12, 2024 Patient Name: Anastasia Simpson Referring physician: Jacek Abbasi [place] [id number] Consult requested for headaches by Dr. Scruggs. Recommendations will be communicated via shared medical record or US mail. Primary physician: [place] [address] Reason for Evaluation: Headaches Subjective HPI Anastasia Simpson is a 48 year old right-handed female who presents for evaluation of headaches. Dr. Scruggs is the referring physician. Dr. Jacek Scruggs MD is the PCP. Chart review: Seen by PCP on 05/02/24 for headache. BARNES:has been worse recently. Having worsening headaches. Imitrex does help. On lexapro, propranolol, imitrex, norco, zofran. Saw neurology in 2008 for headaches, MRI brain normal at that itme. Patient presents for evaluation of headache. Patient with chronic headache for the last 15+ years, did previously see neurology in 2008. Had normal MRI of the brain at that time. Notes that since that time her headaches have gradually worsened, over the last year or so headaches are occurring longer. Notes that before her headaches usually occur around her menstrual cycle, for 2 to 3 days, now 1 headache is lasting 10 to 12 days. Takes Imitrex during this which is effective but the headache comes back 24 hours later. No new symptoms with the headaches, just lasting longer. Which she usually gets about 2 attacks a month lasting 10 days each, for total about 20 headache days a month. Headaches are migrainous, no autonomic features, no onset with Valsalva, position change or exertion. Did see her eye doctor last year with normal dilated exam. Drinks water throughout the day, no diet changes or lifestyle changes. Does not that she recently changed jobs but notes this was for the better, improving her stress. Does have chronic insomnia, sleeping a few hours a night, this has been the case for many years. Headaches are typically to the top of the head and radiate down the back of the neck. Has gotten an aura about a dozen times in her life, but not consistently. Current Headache treatment Preventative: propranolol Abortive: imitrex Medications effective? sometimes # of doses of abortive medications per month: 10 Previous Medications: Lexapro, propranolol, imitrex, norco, zofran Elavil TPM Gabapentin Headache Description Onset: 15 years Total headache days per month: 20 per month Total headache attacks per month: 2 per month Headache free days: Yes Duration of attacks: 10-12 days Severity of headaches? severe Onset to Peak: gradual Location: top of the head and radiate down. Aura: loses central vision (only a dozen total) Prodrome:none. Accompanying symptoms: phonophobia, nausea, vomiting, vertigo, neck pain. Quality:throbbing and piercing/stabbing. Worse with activity: Yes Triggers: menses. Cough/sneeze/valsalva as trigger: no Positional changes: sometimes getting up too quickly Most common time of day for headache to begin:anytime. Time missed from work or school: have in the past Risk Factors Visual-Motion sensitivity: Yes Tobacco Use: No Alcohol Use: No Other substances: No Caffeine: Yes, occasionally sweet tea, once daily coffee Water- all day Neck Pain /Back Pain: Yes, lumber (three lumbar surgeries) Fibromyalgia: No History of Motor Vehicle Accident: No History of Traumatic Brain Injury and/or Concussion: Yes, two years ago getting to car and tripped and fell, no loc History of severe infection: yes, bacterial and in the hospital for four days (20 years ago) History of Syncope: No Obesity: No, Body mass index is 23 Eye doc- one year ago Preg- no Family History Migraine or other headaches in the family: No Aneurysms in a first degree relative: No Brain tumors in the family: No Other neurological illness in the family: aunt with parkinsons variant, ALS ROS Review of Systems CONSTITUTIONAL: No reported fevers, chills, night sweats, or significant unintentional weight loss. EYES: No visual changes indicated. No eye pain or orbital swelling reported. HEENT: No hearing changes or vertiginous symptoms indicated. No history of nose bleeds reported. RESPIRATORY: No reported cough, wheezing and dyspnea. CARDIOVASCULAR: Negative for significant chest pain, and palpitations per report. GI: Negative for significant abdominal discomfort, blood in stools or black stools reported. No recent reported change in bowel habits. : No reported history of incontinence. No dark/cola colored urine reported. MUSCLOSKELETAL: No history of significant joint pain or swelling, or myalgias reported. SKIN: Negative for pertinent lesions, rash, and itching per report. HEMATOLOGY/ONCOLOGY: Negative for reported prolonged bleeding, bruising easily, and swollen nodes. ENDOCRINE: Negative for reported significant cold or heat intolerance, no reported goitrous neck swelling or polydipsia PSYCH: No reported depression or anxiety symptoms. No reported SI or HI. NEURO: Per HPI above. Sleep: insomnia (2 hours a night), never seen sleep specialist Mood: normal, Energy: Low, Stress: better Medications: Current Outpatient Medications Medication Sig Dispense Refill SUMAtriptan (IMITREX) 100 mg tablet Take 1 tablet (100 mg) by mouth as needed. 9 tablet 3 HYDROcodone-acetaminophen (NORCO) 5-325 mg per tablet Take 1 tablet by mouth every 6 hours as needed for up to 31 days. 60 tablet 0 omeprazole (PRILOSEC) 20 mg capsule Take 1 capsule by mouth daily before breakfast. 1/2 hr before meal. 90 capsule 1 valACYclovir (VALTREX) 1 gram tablet Take 1 tablet by mouth two times a day. 2 tablet 3 propranolol ER (INDERAL LA) 60 mg 24 hr capsule Take 1 capsule by mouth once daily. 30 capsule 11 ondansetron orally disintegrating (ZOFRAN ODT) 4 mg disintegrating tablet Take 1 tablet by mouth every 6 hours as needed for nausea/vomiting. 20 tablet 0 escitalopram oxalate (LEXAPRO) 5 mg tablet Take 1 tablet by mouth once daily. Take 1 tab a day for one week and then increase to 2 tabs a day 90 tablet 3 SENNOSIDES 8.6 MG TAB as needed for constipation 0 galcanezumab-gnln 120 mg/mL subcutaneous syringe (EMGALITY) Inject 2 mL subcutaneously once every month. Do not shake. 2 mL 0 galcanezumab-gnln 120 mg/mL subcutaneous syringe (EMGALITY) Inject 1 mL subcutaneously once every month. Do not shake. 1 mL 5 No current facility-administered medications for this visit. ROS: Her ROS was positive for that mentioned in the HPI. Otherwise a 10-point ROS was completed and was negative. ALLERGIES Allergen Reactions Celestone [Betameth* Other: See Comments Cheeks and neck red and hot- felt like she had a fever in top 1/2 of body, other steroids have been ok Codeine GI UPSET, HEART RACES Neurontin [Gabapent* Other: See Comments Extreme dizziness Sulfa (Sulfonamide * UNKNOWN Past Medical History: PAST MEDICAL HISTORY Diagnosis Date Basal cell carcinoma 2011, 2015 multiple sites High blood pressure Moderate major depression, single episode (HCC) 11/13/2020 PMH - PAST MEDICAL HISTORY OF irritable bowel syndrome PMH - PAST MEDICAL HISTORY OF back pain PMH - PAST MEDICAL HISTORY OF Injections L4-L5 by Dr Knox in [place] Family History: FAMILY HISTORY Problem Relation Age of Onset Lipids Mother Headache Mother Ischemic Heart Disease Maternal Grandmother Skin Cancer Maternal Grandmother 60 Ischemic Heart Disease Maternal Grandfather other (Melanoma [Other]) Maternal Grandfather 81 Hypertension Paternal Grandmother all grandparents Breast Cancer Paternal Grandmother 66 Breast Cancer Paternal Aunt 45 bilateral Colon Cancer Paternal Aunt 55 other (Kidney Cancer [Other]) Paternal Aunt 55 Breast Cancer Paternal Aunt 40s Breast Cancer Maternal Aunt 50s Also includes: . Social History: Social History Tobacco Use Smoking status: Never Smokeless tobacco: Never Vaping Use Vaping status: Never Used Substance Use Topics Alcohol use: No Drug use: No Hybrid at home (palliative care) Objective 07/12/24 0659 BP: 120/82 Pulse: 77 Resp: 16 SpO2: 98% Weight: 65 kg (143 lb 3.2 oz) Physical Examination General Appearance: Well appearing, alert, in no acute distress, well-hydrated, well nourished. Head: Normocephalic Pulm: Breathing comfortably Neck: Supple Psych: Cooperative, appropriate affect Neurological Examination: Mental Status: Alert and Oriented to Place, Person, Time and Situation and Patient follows commands.. Language: Is intact to Comprehension, Fluency and Repetition Cranial Nerves: CNII: Visual acuity normal, visual dutton full to confrontation CNIII, IV, : Pupils equal, round and reactive to light, full extraoccular movements, without nystagmus CN V: Facial sensation intact bilaterally to fine touch CN VII: Facial muscles symmetric and strong however, patient had Botox 3 weeks ago and is unable to move her forehead bilaterally CN VIII: Hears finger rub well bilaterally CN IX: Gag Reflex not examined CN X: Palate elevates symmetrically CN XI: Full strength shoulder shrug bilaterally CN XII: Tongue protrusion full and midline Non-Dilated Fundiscopic Examination: No papilledema Motor Exam: Tone - Normal Tone noted in all extremities Bulk - Normal bulk noted in all muscles tested. Inspection - Normal, no fasciculations or tremors noted. Power: MUSCLES Upper Extremity RIGHT LEFT Deltoid 5/5 5/5 Biceps 5/5 5/5 Triceps 5/5 5/5 Wrist Extension 5/5 5/5 Wrist Flexion 5/5 5/5 Finger Flexion 5/5 5/5 Finger Extension 5/5 5/5 Finger Abd 5/5 5/5 Finger Add 5/5 5/5 MUSCLES Lower Extremity RIGHT LEFT Hip Flexion 5/5 5/5 Hip Extension 5/5 5/5 BiFem (Knee Flex) 5/5 5/5 Quads (Knee Ext) 5/5 5/5 Gastroc (Plantflx) 5/5 5/5 TibAnt (Dorsiflx) 5/5 5/5 FlxHLong (Toe Flex) 5/5 5/5 ExtHLong (Toe Ext) 5/5 5/5 Sensory Examination Sensation is intact to light touch throughout. Negative extinction to double simultaneous stimulation Reflexes Right Left Bicep 2/4 2/4 BrRad 2/4 2/4 Knee 1/4 2/4 Ankle 2/4 2/4 Coordination: finger-to- nose-finger intact bilaterally and [id number] intact bilaterally. Gait: Patient's gait is normal Romberg: Negative DATA REVIEWED Actual films/image/tracing reviewed and summarized as follows: MRI brain Old records reviewed and summarized as follows: Neurology, primary care Assessment/Plan Assessment & Plan: Anastasia Simpson is a 48 year old right-handed female with a history of 3 lumbar surgeries, migraines, insomnia. Her examination demonstrates decreased forehead strength, patient with Botox 3 weeks ago. Patient with 15 years of chronic migraines, worsening over the last year or so. Notes that they are still the same headache type, but lasting longer, 1 headache can last for 10 to 12 days and usually has 2 attacks a month. Imitrex will completely abort the headache but the headache comes back the next day. Is on propranolol for both blood pressure and headaches, has been on Topamax and gabapentin in the past with significant side effects. No red flag signs or symptoms with a headache that would warrant additional workup at this time, has had previous MRI imaging in the past that was normal. However, due to headaches worsening, if they are not improving with treatment may consider repeat MRI at that time. In terms of treatment, discussed preventatives that may be beneficial, she has tried antidepressants, antiseizure medications and is currently on a beta-rhea for alternative therapies may be helpful. Would like to try injectable, will try Emgality with first dosage being a loading dose followed by 1 injection every month. Discussed common side effects and patient is amenable. For abortive relief, patient would like to continue with Imitrex. No history of stroke or heart attack in the past. Encouraged conservative therapy as well. Patient agreeable to treatment plan of care at this time, questions were answered. Patient to follow-up in 3 to 4 months or sooner should any symptoms change or worsen. Anastasia was seen today for new patient evaluation. Diagnoses and all orders for this visit: Intractable chronic migraine with aura and without status migrainosus - galcanezumab-gnln 120 mg/mL subcutaneous syringe (EMGALITY); Inject 2 mL subcutaneously once every month. Do not shake. - galcanezumab-gnln 120 mg/mL subcutaneous syringe (EMGALITY); Inject 1 mL subcutaneously once every month. Do not shake. Other orders - CONSULT TO NEUROLOGY All options for treatment discussed. Preventative:emgality Abortive: imitex Imaging:none Labs: none She should return to see me in 3 months. I spent a total of 55 minutes on the date of the service which included preparing to see the patient, [id number] patient care, completing clinical documentation, obtaining and/or reviewing separately obtained history, performing a medically appropriate examination, counseling and educating the patient/family/caregiver, and ordering medications, tests, or procedures. Robyn Harris PA-C [facility] Neurology This document has been created with the use of voice recognition technology. It may contain inaccuracies: (e.g. misspellings, inaccurate syntax or word sense) that have escaped review. 07/10/2024 Sleep Apnea Probability Snores loudly: No Tired, fatigued or sleepy in daytime: Yes Stops breathing or choking/gasping during sleep: No High blood pressure: Yes Sleep Apnea Probability Score: 13 (Sleep study not recommended) documented in this encounter [facility] 07-12-2024 Note HNO ID: [id number] Author: YOKO CHATTERJEE LPN Service: ? Author Type: LICENSED NURSE Type: Progress Notes Filed: 07/12/2024 07:18 Note Text: 07/10/2024 Sleep Apnea Probability Snores loudly: No Tired, fatigued or sleepy in daytime: Yes Stops breathing or choking/gasping during sleep: No High blood pressure: Yes Sleep Apnea Probability Score: 13 (Sleep study not recommended) [facility] 07-07-2024 Telephone encounter Note Pharmacy notified ok for early refill. Amee Paz MA [facility] 10-17-2024 Miscellaneous Notes Pharmacy notified ok for early refill. Amee Paz MA Ok to fill early Called [facility] they advised rx picked up 06/[address] rx is written for 31 days which they can not fill for 31 days due to provider instructions. Pharmacist said if patient was taking every 6 hours than it be a 15 day supply and could fill early off instructions but due to stating 31 can not unless provider ok to over ride. Cori Hanson MA Anastasia is calling regarding the Rx Hydrocodone. She is asking if there is any way of filling this sooner than Thursday as she recently fell, and needed a couple more, more than usual. Please call and advise either way. TY [phone] documented in this encounter [facility] 07-07-2024 Telephone encounter Note Ok to fill early [facility] 07-06-2024 Telephone encounter Note Called [facility] they advised rx picked up 06/[address] rx is written for 31 days which they can not fill for 31 days due to provider instructions. Pharmacist said if patient was taking every 6 hours than it be a 15 day supply and could fill early off instructions but due to stating 31 can not unless provider ok to over ride. Cori Hanson MA [facility] 07-06-2024 Telephone encounter Note Anastasia is calling regarding the Rx Hydrocodone. She is asking if there is any way of filling this sooner than Thursday as she recently fell, and needed a couple more, more than usual. Please call and advise either way. TY [phone] [facility] 07-04-2024 History of Present illness Narrative Radiology Service Progress Note PATIENT NAME: Anastasia Simpson DATE OF SERVICE: July 04, 2024 TIME: 3:56 PM PATIENT IDENTITY VERIFICATION COMPLETED USING TWO (2) IDENTIFIERS: Name and Date of confirmed by patient verbally. FALL SCREENING: Has the patient had 2 falls in the last year or 1 fall with injury or currently using an Ambulatory Assistive Device (Walker, Cane, Wheelchair, Crutches, etc.)? No PATIENT GENDER DATA: Female. status: : No status: NO. PATIENT RELEVANT IMPLANT DATA REVIEWED: Yes PATIENT PRESENTS WITH AN IMPLANTABLE OR ATTACHED ZINC PLATE GRAINER: No RADIOLOGY DEPARTMENT: General X-ray: Exam(s) Completed: Lower Extremity X-Ray(s): Tibia Fibula, Right PERIPHERAL IV DATA: Not applicable SIGNED BY: SUMMER Coelho) July 04, 2024 3:56 PM documented in this encounter [facility] 07-04-2024 Note HNO ID: [id number] Author: ANNIKA BLANCAS RT(R) Service: Radiology Author Type: Technologist Type: Progress Notes Filed: 07/04/2024 16:06 Note Text: Radiology Service Progress Note PATIENT NAME: Anastasia Simpson DATE OF SERVICE: July 04, 2024 TIME: 3:56 PM PATIENT IDENTITY VERIFICATION COMPLETED USING TWO (2) IDENTIFIERS: Name and Date of confirmed by patient verbally. FALL SCREENING: Has the patient had 2 falls in the last year or 1 fall with injury or currently using an Ambulatory Assistive Device (Walker, Cane, Wheelchair, Crutches, etc.)? No PATIENT GENDER DATA: Female. status: : No status: NO. PATIENT RELEVANT IMPLANT DATA REVIEWED: Yes PATIENT PRESENTS WITH AN IMPLANTABLE OR ATTACHED ZINC PLATE GRAINER: No RADIOLOGY DEPARTMENT: General X-ray: Exam(s) Completed: Lower Extremity X-Ray(s): Tibia Fibula, Right PERIPHERAL IV DATA: Not applicable SIGNED BY: Annika Blancas RT(R) July 04, 2024 3:56 PM [facility] 07-04-2024 Note HNO ID: [id number] Author: JACEK SCRUGGS MD Service: ? Author Type: Physician Type: Progress Notes Filed: 07/04/2024 15:49 Note Text: Patient presents with: Follow Up HPI: Patient presents today for office visit for follow up. Mentions 3 weeks ago she fell outside in [facility]'s parking lot. Landed on buttocks and more weight on her right side. Had some pain and swelling in her left knee. Doing much better but still with some tenderness. Did have a bruise near the area. Bearing weight currently. Had tibial plateau fracture in 2022 Headaches are about the same. Sumatriptan prn. Med is helping but states having to take it 10-12 days in a row. Was setup to see Neuro but had to cancel. Wants to reschedule. Pain is controlled. Medications help with functioning. No misuse or abuse. Controlled substance agreement. Benefiting from use. Tox screen done. Has seen specialists who concur with use of meds. On lowest effective dose. GERD: Continues on Omeprazole 2 mg daily. Symptoms controlled. Denies bloody or black stool. HTN: Does not monitor BP at home. Denies chest pain and shortness of breath Continues on Propranolol 6 mg daily. Also helps with her headaches. Denies dizziness. Denies palpitations and syncope. Denies edema. Has a new job. Lexapro is helping. MEDICATIONS: Current Outpatient Medications Medication Sig HYDROcodone-acetaminophen (NORCO) 5-325 mg per tablet Take 1 tablet by mouth every 6 hours as needed for up to 31 days. omeprazole (PRILOSEC) 20 mg capsule Take 1 capsule by mouth daily before breakfast. 1/2 hr before meal. valACYclovir (VALTREX) 1 gram tablet Take 1 tablet by mouth two times a day. propranolol ER (INDERAL LA) 60 mg 24 hr capsule Take 1 capsule by mouth once daily. SUMAtriptan (IMITREX) 100 mg tablet Take 1 tablet (100 mg) by mouth as needed. ondansetron orally disintegrating (ZOFRAN ODT) 4 mg disintegrating tablet Take 1 tablet by mouth every 6 hours as needed for nausea/vomiting. escitalopram oxalate (LEXAPRO) 5 mg tablet Take 1 tablet by mouth once daily. Take 1 tab a day for one week and then increase to 2 tabs a day SENNOSIDES 8.6 MG TAB as needed for constipation No current facility-administered medications for this visit. ALLERGIES: ALLERGIES Allergen Reactions Celestone [Betameth* Other: See Comments Cheeks and neck red and hot- felt like she had a fever in top 1/2 of body, other steroids have been ok Codeine GI UPSET, HEART RACES Neurontin [Gabapent* Other: See Comments Extreme dizziness Sulfa (Sulfonamide * UNKNOWN PAST MEDICAL HISTORY Diagnosis Date Basal cell carcinoma 2011, 2015 multiple sites High blood pressure Moderate major depression, single episode (HCC) 11/13/2020 PMH - PAST MEDICAL HISTORY OF irritable bowel syndrome PMH - PAST MEDICAL HISTORY OF back pain PMH - PAST MEDICAL HISTORY OF Injections L4-L5 by Dr Knox in [place] PAST SURGICAL HISTORY Procedure Laterality Date COLONOSCOPY FLX DX W/COLLJ SPEC WHEN PFRMD 02/28/2020 Colonoscopy-Dr Bryant ESOPHAGOGASTRODUODENOSCOPY TRANSORAL DIAGNOSTIC 02/28/2020 EGD-Dr Bryant LAPAROSCOPIC CHOLECYSTECTOMY 08/26/2018 Dr. Bryant MOHS TRUNK/ARM/LEG 1ST STAGE 5 BLOCKS multiple BCC PAST SURGICAL HISTORY OF 02/2003 x2 discectomy L4-5 S1 PAST SURGICAL HISTORY OF DANDC PAST SURGICAL HISTORY OF 07/11/2004 L5-S1 anterior lumbar interbody fusion with posterior L5-S1 translaminar facet screw on left side and a facet joint screw on the right side, and this would be a 360-degree fusion PAST SURGICAL HISTORY OF 1999 lasix eye surgery PAST SURGICAL HISTORY OF 2003 wisdom teeth S THERMACHOICE UTERINE BALLOON 01/02/15 Hysteroscopy w/ endometrial ablation FAMILY HISTORY Problem Relation Age of Onset Lipids Mother Headache Mother Ischemic Heart Disease Maternal Grandmother Skin Cancer Maternal Grandmother 60 Ischemic Heart Disease Maternal Grandfather other (Melanoma [Other]) Maternal Grandfather 81 Hypertension Paternal Grandmother all grandparents Breast Cancer Paternal Grandmother 66 Breast Cancer Paternal Aunt 45 bilateral Colon Cancer Paternal Aunt 55 other (Kidney Cancer [Other]) Paternal Aunt 55 Breast Cancer Paternal Aunt 40s Breast Cancer Maternal Aunt 50s Social History Tobacco Use Smoking status: Never Smokeless tobacco: Never Vaping Use Vaping status: Never Used Substance Use Topics Alcohol use: No Drug use: No Reviewed current medications, allergies, past medical history, surgical history, family history and social history today. REVIEW OF SYSTEMS All other reviewed and negative other than HPI. HEALTH MAINTENANCE: Reviewed health maintenance issues today and recommended the following in detail. Cervical Cancer Screening due on 07/23/2023 Influenza Vaccine(1) due on 05/22/2024 Mammogram Screening due on 08/12/2024 VITALS: BP 116/78 Pulse 8 (more content not included)... [facility] 07-04-2024 History of Present illness Narrative Patient presents with: Follow Up HPI: Patient presents today for office visit for follow up. Mentions 3 [facility] Landed on buttocks and more weight on her right side. Had some pain and swelling in her left knee. Doing much better but still with some tenderness. Did have a bruise near the area. Bearing weight currently. Had tibial plateau fracture in 2022 Headaches are about the same. Sumatriptan prn. Med is helping but states having to take it 10-12 days in a row. Was setup to see Neuro but had to cancel. Wants to reschedule. Pain is controlled. Medications help with functioning. No misuse or abuse. Controlled substance agreement. Benefiting from use. Tox screen done. Has seen specialists who concur with use of meds. On lowest effective dose. GERD: Continues on Omeprazole 2 mg daily. Symptoms controlled. Denies bloody or black stool. HTN: Does not monitor BP at home. Denies chest pain and shortness of breath Continues on Propranolol 6 mg daily. Also helps with her headaches. Denies dizziness. Denies palpitations and syncope. Denies edema. Has a new job. Lexapro is helping. MEDICATIONS: Current Outpatient Medications Medication Sig HYDROcodone-acetaminophen (NORCO) 5-325 mg per tablet Take 1 tablet by mouth every 6 hours as needed for up to 31 days. omeprazole (PRILOSEC) 20 mg capsule Take 1 capsule by mouth daily before breakfast. 1/2 hr before meal. valACYclovir (VALTREX) 1 gram tablet Take 1 tablet by mouth two times a day. propranolol ER (INDERAL LA) 60 mg 24 hr capsule Take 1 capsule by mouth once daily. SUMAtriptan (IMITREX) 100 mg tablet Take 1 tablet (100 mg) by mouth as needed. ondansetron orally disintegrating (ZOFRAN ODT) 4 mg disintegrating tablet Take 1 tablet by mouth every 6 hours as needed for nausea/vomiting. escitalopram oxalate (LEXAPRO) 5 mg tablet Take 1 tablet by mouth once daily. Take 1 tab a day for one week and then increase to 2 tabs a day SENNOSIDES 8.6 MG TAB as needed for constipation No current facility-administered medications for this visit. ALLERGIES: ALLERGIES Allergen Reactions Celestone [Betameth* Other: See Comments Cheeks and neck red and hot- felt like she had a fever in top 1/2 of body, other steroids have been ok Codeine GI UPSET, HEART RACES Neurontin [Gabapent* Other: See Comments Extreme dizziness Sulfa (Sulfonamide * UNKNOWN PAST MEDICAL HISTORY Diagnosis Date Basal cell carcinoma 2011, 2015 multiple sites High blood pressure Moderate major depression, single episode (HCC) 11/13/2020 PMH - PAST MEDICAL HISTORY OF irritable bowel syndrome PMH - PAST MEDICAL HISTORY OF back pain PMH - PAST MEDICAL HISTORY OF Injections L4-L5 by Dr Knox in [place] PAST SURGICAL HISTORY Procedure Laterality Date COLONOSCOPY FLX DX W/COLLJ SPEC WHEN PFRMD 02/28/2020 Colonoscopy-Dr Bryant ESOPHAGOGASTRODUODENOSCOPY TRANSORAL DIAGNOSTIC 02/28/2020 EGD-Dr Bryant LAPAROSCOPIC CHOLECYSTECTOMY 08/26/2018 Dr. Bryant MOHS TRUNK/ARM/LEG 1ST STAGE 5 BLOCKS multiple BCC PAST SURGICAL HISTORY OF 02/2003 x2 discectomy L4-5 S1 PAST SURGICAL HISTORY OF D&C PAST SURGICAL HISTORY OF 07/11/2004 L5-S1 anterior lumbar interbody fusion with posterior L5-S1 translaminar facet screw on left side and a facet joint screw on the right side, and this would be a 360-degree fusion PAST SURGICAL HISTORY OF 1999 lasix eye surgery PAST SURGICAL HISTORY OF 2003 wisdom teeth S THERMACHOICE UTERINE BALLOON 01/02/15 Hysteroscopy w/ endometrial ablation FAMILY HISTORY Problem Relation Age of Onset Lipids Mother Headache Mother Ischemic Heart Disease Maternal Grandmother Skin Cancer Maternal Grandmother 60 Ischemic Heart Disease Maternal Grandfather other (Melanoma [Other]) Maternal Grandfather 81 Hypertension Paternal Grandmother all grandparents Breast Cancer Paternal Grandmother 66 Breast Cancer Paternal Aunt 45 bilateral Colon Cancer Paternal Aunt 55 other (Kidney Cancer [Other]) Paternal Aunt 55 Breast Cancer Paternal Aunt 40s Breast Cancer Maternal Aunt 50s Social History Tobacco Use Smoking status: Never Smokeless tobacco: Never Vaping Use Vaping status: Never Used Substance Use Topics Alcohol use: No Drug use: No Reviewed current medications, allergies, past medical history, surgical history, family history and social history today. REVIEW OF SYSTEMS All other reviewed and negative other than HPI. HEALTH MAINTENANCE: Reviewed health maintenance issues today and recommended the following in detail. Cervical Cancer Screening due on 07/23/2023 Influenza Vaccine(1) due on 05/22/2024 Mammogram Screening due on 08/12/2024 VITALS: BP 116/78 Pulse 83 Ht 167.6 cm (5' 6) Wt 64.2 kg (141 lb 9.6 oz) LMP 08/20/2023 (Approximate) SpO2 99% BMI 22.85 kg/m Last 4 Encounter Wt Readings: Date: Wt: 07/04/2024 64.2 kg (141 lb 9.6 oz) 03/05/2024 62.3 kg (137 lb 5.6 oz) 03/01/2024 61.2 kg (135 lb) 09/03/2023 59 kg (130 lb) PHYSICAL EXAMINATION: General appearance: Well appearing, alert, in no acute distress, well-hydrated, well nourished. Skin: Skin color, texture, turgor normal, no suspicious rashes or lesions Head: Normocephalic, no masses, lesions, tenderness or abnormalities Lungs: Lungs clear to auscultation. No wheezing, rhonchi, rales Heart: RRR without murmur, gallop, or rubs. No ectopy Abdomen: Normal abdominal exam, Abdomen soft, non-tender. Bowel sounds normal. No masses, organomegaly Extremities: No deformities, edema, skin discoloration, clubbing or cyanosis. Good capillary refill. Musculoskeletal: no joint swelling. No bruising. conditioner tender at the proximal tibia. No deformity. ASSESSMENT/PLAN: 1. Pain of right lower extremity - ICD9: 729.5, ICD10: M79.604 (primary diagnosis) - do xray. Ice prn. - XR TIBIA FIBULA 2V AP/LAT RIGHT 2. Other migraine without status migrainosus, not intractable - ICD9: 346.80, ICD10: G43.809 - see neuro. - SUMATRIPTAN 100 MG TABLET 4. DDD (degenerative disc disease), lumbar - ICD9: 722.52, ICD10: M51.369 -- continue meds. - HYDROCODONE 5 MG-ACETAMINOPHEN 325 MG TABLET 5. Postlaminectomy syndrome - ICD9: 722.80, ICD10: M96.1 - stable. 6. Anxiety - ICD9: 300.00, ICD10: F41.9 - stable. Jacek Scruggs MD documented in this encounter [facility] 06-09-2024 Telephone encounter Note Prescription Refill Information The patient has been identified by name and date of : Yes Caregiver verified no other encounters exist for this prescription request: Yes Caregiver confirmed with patient/requestor that no other refills are due, in the near future, with this provider at this time: Yes The last office visit in the department: 05-02-24 Does the patient have a future office visit with this provider/department: Yes Requested Prescriptions Pending Prescriptions Disp Refills HYDROcodone-acetaminophen (NORCO) 5-325 mg per tablet 60 tablet 0 Sig: Take 1 tablet by mouth every 6 hours as needed for up to 31 days. Nguyen Rangel June 09, 2024 9:37 AM [facility] 06-09-2024 Miscellaneous Notes Prescription Refill Information The patient has been identified by name and date of : Yes Caregiver verified no other encounters exist for this prescription request: Yes Caregiver confirmed with patient/requestor that no other refills are due, in the near future, with this provider at this time: Yes The last office visit in the department: 05-02-24 Does the patient have a future office visit with this provider/department: Yes Requested Prescriptions Pending Prescriptions Disp Refills HYDROcodone-acetaminophen (NORCO) 5-325 mg per tablet 60 tablet 0 Sig: Take 1 tablet by mouth every 6 hours as needed for up to 31 days. Nguyen Rangel June 09, 2024 9:37 AM documented in this encounter [facility] 05-09-2024 Telephone encounter Note Prescription Refill Information The patient has been identified by name and date of : Yes Caregiver verified no other encounters exist for this prescription request: Yes Caregiver confirmed with patient/requestor that no other refills are due, in the near future, with this provider at this time: Yes The last office visit in the department: 05/02/24 Does the patient have a future office visit with this provider/department: Yes Requested Prescriptions Pending Prescriptions Disp Refills omeprazole (PRILOSEC) 20 mg capsule 90 capsule 1 Sig: Take 1 capsule by mouth daily before breakfast. 1/2 hr before meal. Patient requested 90 days due to the medication is working. Mary Rangel May 09, 2024 8:48 AM [facility] 05-09-2024 Miscellaneous Notes Prescription Refill Information The patient has been identified by name and date of : Yes Caregiver verified no other encounters exist for this prescription request: Yes Caregiver confirmed with patient/requestor that no other refills are due, in the near future, with this provider at this time: Yes The last office visit in the department: 05/02/24 Does the patient have a future office visit with this provider/department: Yes Requested Prescriptions Pending Prescriptions Disp Refills omeprazole (PRILOSEC) 20 mg capsule 90 capsule 1 Sig: Take 1 capsule by mouth daily before breakfast. 1/2 hr before meal. Patient requested 90 days due to the medication is working. Mary Rangel May 09, 2024 8:48 AM documented in this encounter [facility] 05-02-2024 Note Addended by: Toñito SCRUGGS on: 05/02/2024 07:54 PM Modules accepted: Orders [facility] 05-02-2024 Miscellaneous Notes Addended by: JACEK SCRUGGS on: 05/02/2024 07:54 PM Modules accepted: Orders Addended by: JACEK SCRUGGS on: 05/02/2024 06:39 PM Modules accepted: Orders documented in this encounter [facility] 05-02-2024 Note Addended by: Toñito SCRUGGS on: 05/02/2024 06:39 PM Modules accepted: Orders [facility] 05-02-2024 History of Present illness Narrative Patient presents with: Follow Up HPI: Patient presents today for office visit for follow up. Has a new job. Lexapro is helping. BARNES:has been worse recently. Having worsening headaches. Imitrex does help. Chronic pain: pain is controlled. Have done controlled substance agreement. Feels meds help with functioning. No misuse or abuse. Has seen specialists. Benefiting from their use. Gi issues are much better. Has been gaining weight. No urinary issues currently. No further pain. MEDICATIONS: Current Outpatient Medications Medication Sig HYDROcodone-acetaminophen (NORCO) 5-325 mg per tablet Take 1 tablet by mouth every 6 hours as needed for up to 31 days. valACYclovir (VALTREX) 1 gram tablet Take 1 tablet by mouth two times a day. propranolol ER (INDERAL LA) 60 mg 24 hr capsule Take 1 capsule by mouth once daily. SUMAtriptan (IMITREX) 100 mg tablet Take 1 tablet (100 mg) by mouth as needed. ondansetron orally disintegrating (ZOFRAN ODT) 4 mg disintegrating tablet Take 1 tablet by mouth every 6 hours as needed for nausea/vomiting. omeprazole (PRILOSEC) 20 mg capsule Take 1 capsule by mouth daily before breakfast. 1/2 hr before meal. escitalopram oxalate (LEXAPRO) 5 mg tablet Take 1 tablet by mouth once daily. Take 1 tab a day for one week and then increase to 2 tabs a day cyclobenzaprine (FLEXERIL) 10 mg tablet Take 1 tablet by mouth three times a day as needed for muscle spasm. (Patient not taking: Reported on 03/05/2024) mometasone (ELOCON) 0.1 % cream Apply 1 application to affected area once daily. (Patient not taking: Reported on 03/05/2024) SENNOSIDES 8.6 MG TAB as needed for constipation No current facility-administered medications for this visit. ALLERGIES: ALLERGIES Allergen Reactions Celestone [Betameth* Other: See Comments Cheeks and neck red and hot- felt like she had a fever in top 1/2 of body, other steroids have been ok Codeine GI UPSET, HEART RACES Neurontin [Gabapent* Other: See Comments Extreme dizziness Sulfa (Sulfonamide * UNKNOWN PAST MEDICAL HISTORY 2011, 2015: Basal cell carcinoma Comment: multiple sites No date: High blood pressure 11/13/2020: Moderate major depression, single episode (HCC) No date: PMH - PAST MEDICAL HISTORY OF Comment: irritable bowel syndrome No date: PMH - PAST MEDICAL HISTORY OF Comment: back pain No date: PMH - PAST MEDICAL HISTORY OF Comment: Injections L4-L5 by Dr Knox in [place] PAST SURGICAL HISTORY 02/28/2020: COLONOSCOPY FLX DX W/COLLJ SPEC WHEN PFRMD Comment: Colonoscopy-Dr Bryant 02/28/2020: ESOPHAGOGASTRODUODENOSCOPY TRANSORAL DIAGNOSTIC Comment: EGD-Dr Bryant 08/26/2018: LAPAROSCOPIC CHOLECYSTECTOMY Comment: Dr. Bryant No date: MOHS TRUNK/ARM/LEG 1ST STAGE 5 BLOCKS Comment: multiple BCC 02/2003 x2: PAST SURGICAL HISTORY OF Comment: discectomy L4-5 S1 No date: PAST SURGICAL HISTORY OF Comment: D&C 07/11/2004: PAST SURGICAL HISTORY OF Comment: L5-S1 anterior lumbar interbody fusion with posterior L5-S1 translaminar facet screw on left side and a facet joint screw on the right side, and this would be a 360-degree fusion 1999: PAST SURGICAL HISTORY OF Comment: lasix eye surgery 2004: PAST SURGICAL HISTORY OF Comment: wisdom teeth 01/02/15: S THERMACHOICE UTERINE BALLOON Comment: Hysteroscopy w/ endometrial ablation FAMILY HISTORY Problem Relation Age of Onset Lipids Mother Headache Mother Ischemic Heart Disease Maternal Grandmother Skin Cancer Maternal Grandmother 60 Ischemic Heart Disease Maternal Grandfather other (Melanoma [Other]) Maternal Grandfather 81 Hypertension Paternal Grandmother all grandparents Breast Cancer Paternal Grandmother 66 Breast Cancer Paternal Aunt 45 bilateral Colon Cancer Paternal Aunt 55 other (Kidney Cancer [Other]) Paternal Aunt 55 Breast Cancer Paternal Aunt 40s Breast Cancer Maternal Aunt 50s Social History Tobacco Use Smoking status: Never Smokeless tobacco: Never Vaping Use Vaping Use: Never used Substance Use Topics Alcohol use: No Drug use: No Reviewed current medications, allergies, past medical history, surgical history, family history and social history today. REVIEW OF SYSTEMS Getting repeat us at the end of the year for repeat us. All other reviewed and negative other than HPI. HEALTH MAINTENANCE: Reviewed health maintenance issues today and recommended the following in detail. Depression Screening Never done BP Controlled (<130/80) Never done Cervical Cancer Screening due on 07/23/2023 Mammogram Screening due on 08/12/2024 VITALS: BP 110/62 Pulse 79 LMP 08/20/2023 (Approximate) SpO2 98% Last 4 Encounter Wt Readings: Date: Wt: 03/05/2024 62.3 kg (137 lb 5.6 oz) 03/01/2024 61.2 kg (135 lb) 09/03/2023 59 kg (130 lb) 07/25/2023 59.9 kg (132 lb) PHYSICAL EXAMINATION: General appearance: Well appearing, alert, in no acute distress, well-hydrated, well nourished. Skin: Skin color, texture, turgor normal, no suspicious rashes or lesions Head: Normocephalic, no masses, lesions, tenderness or abnormalities Lungs: Lungs clear to auscultation. No wheezing, rhonchi, rales Heart: RRR without murmur, gallop, or rubs. No ectopy Abdomen: Normal abdominal exam, Abdomen soft, non-tender. Bowel sounds normal. No masses, organomegaly Extremities: No deformities, edema, skin discoloration, clubbing or cyanosis. Good capillary refill. Musculoskeletal: No joint swelling, deformity, or tenderness ASSESSMENT/PLAN: 1. Other migraine without status migrainosus, not intractable - ICD9: 346.80, ICD10: G43.809 (primary diagnosis) - continue to follow. See headache meds. - CONSULT TO NEUROLOGY 2. Screening for depression - ICD9: V79.0, ICD10: Z13.31 - DEPRESSION SCREENING 3. Basal cell carcinoma (BCC), unspecified site - ICD9: 173.91, ICD10: C44.91 - no issues. 4. Postlaminectomy syndrome - ICD9: 722.80, ICD10: M96.1 - continue meds. Check tox screens. 5. Anxiety - ICD9: 300.00, ICD10: F41.9 - COMPLETE BLOOD COUNT AND DIFFERENTIAL - COMPREHENSIVE METABOLIC PANEL 6. Medication monitoring encounter - ICD9: V58.83, ICD10: Z51.81 - TOXICOLOGY SCREEN, ROUTINE URINE 7. Mixed hyperlipidemia - ICD9: 272.2, ICD10: E78.2 - LIPID PANEL BASIC 8. Weight gain - ICD9: 783.1, ICD10: R63.5 - THYROID STIMULATING HORMONE 9. Screening breast examination - ICD9: V76.10, ICD10: Z12.39 - SKY SCREENING Jacek Scruggs RTO in two months and prn. documented in this encounter [facility] 04-12-2024 Telephone encounter Note Prescription Refill Information The patient has been identified by name and date of : Yes Caregiver verified no other encounters exist for this prescription request: Yes Caregiver confirmed with patient/requestor that no other refills are due, in the near future, with this provider at this time: Yes The last office visit in the department: 03-07-24 Does the patient have a future office visit with this provider/department: Yes Requested Prescriptions Pending Prescriptions Disp Refills HYDROcodone-acetaminophen (NORCO) 5-325 mg per tablet 60 tablet 0 Sig: Take 1 tablet by mouth every 6 hours as needed for up to 31 days. valACYclovir (VALTREX) 1 gram tablet 2 tablet 3 Sig: Take 1 tablet by mouth two times a day. Zelda Sexton April 12, 2024 9:18 AM [facility] 04-12-2024 Miscellaneous Notes Prescription Refill Information The patient has been identified by name and date of : Yes Caregiver verified no other encounters exist for this prescription request: Yes Caregiver confirmed with patient/requestor that no other refills are due, in the near future, with this provider at this time: Yes The last office visit in the department: 03-07-24 Does the patient have a future office visit with this provider/department: Yes Requested Prescriptions Pending Prescriptions Disp Refills HYDROcodone-acetaminophen (NORCO) 5-325 mg per tablet 60 tablet 0 Sig: Take 1 tablet by mouth every 6 hours as needed for up to 31 days. valACYclovir (VALTREX) 1 gram tablet 2 tablet 3 Sig: Take 1 tablet by mouth two times a day. Zelda Sexton April 12, 2024 9:18 AM documented in this encounter [facility] 04-06-2024 Telephone encounter Note Pt notified. She verbalized understanding. Chris Bullard LPN [facility] 04-06-2024 Miscellaneous Notes Pt notified. She verbalized understanding. Chris Bullard LPN Can please let patient know that I received her ultrasound results. The ovaries appeared normal. The uterus had a heterogenous (rough/uneven) appearance. This can be seen with adenomyosis (when the lining of the uterus grows into the muscle layer of the uterus). This is not an uncommon finding as we age. Sometimes this can lead to worse cramping/periods). If this is problematic, we probably should have her follow-up with [facility]. Madelaine Tomlinson APRN.SCHOOL TRANSPORTATION SUPERVISOR documented in this encounter [facility] 04-06-2024 Telephone encounter Note Can please let patient know that I received her ultrasound results. The ovaries appeared normal. The uterus had a heterogenous (rough/uneven) appearance. This can be seen with adenomyosis (when the lining of the uterus grows into the muscle layer of the uterus). This is not an uncommon finding as we age. Sometimes this can lead to worse cramping/periods). If this is problematic, we probably should have her follow-up with [facility]. Madelaine Tomlinson APRN.CNP [facility] 03-21-2024 Telephone encounter Note Prescription Refill Information The patient has been identified by name and date of : Yes Caregiver verified no other encounters exist for this prescription request: Yes Caregiver confirmed with patient/requestor that no other refills are due, in the near future, with this provider at this time: No The last office visit in the department: 03/07/24 Does the patient have a future office visit with this provider/department: Yes 05/02/24 Requested Prescriptions Pending Prescriptions Disp Refills propranolol ER (INDERAL LA) 60 mg 24 hr capsule 30 capsule 11 Sig: Take 1 capsule by mouth once daily. Shelli Mckeon MA March 21, 2024 9:35 AM [facility] 03-21-2024 Miscellaneous Notes Prescription Refill Information The patient has been identified by name and date of : Yes Caregiver verified no other encounters exist for this prescription request: Yes Caregiver confirmed with patient/requestor that no other refills are due, in the near future, with this provider at this time: No The last office visit in the department: 03/07/24 Does the patient have a future office visit with this provider/department: Yes 05/02/24 Requested Prescriptions Pending Prescriptions Disp Refills propranolol ER (INDERAL LA) 60 mg 24 hr capsule 30 capsule 11 Sig: Take 1 capsule by mouth once daily. Shelli Mckeon MA March 21, 2024 9:35 AM Patient has been identified by name and date of : Yes Patient phones for refill(s): Requested Prescriptions Pending Prescriptions Disp Refills propranolol ER (INDERAL LA) 60 mg 24 hr capsule 30 capsule 11 Sig: Take 1 capsule by mouth once daily. Date of last office visit in primary care: 03/07/2024 Date of next office visit in primary care: 05/02/2024 Please advise. Thank you. Angelique Marlow. documented in this encounter [facility] 03-21-2024 Telephone encounter Note Patient has been identified by name and date of : Yes Patient phones for refill(s): Requested Prescriptions Pending Prescriptions Disp Refills propranolol ER (INDERAL LA) 60 mg 24 hr capsule 30 capsule 11 Sig: Take 1 capsule by mouth once daily. Date of last office visit in primary care: 03/07/2024 Date of next office visit in primary care: 05/02/2024 Please advise. Thank you. Angelique Marlow. [facility] 03-16-2024 Telephone encounter Note Prescription Refill Information The patient has been identified by name and date of : Yes Caregiver verified no other encounters exist for this prescription request: Yes Caregiver confirmed with patient/requestor that no other refills are due, in the near future, with this provider at this time: Yes The last office visit in the department: 03/07/2024 Does the patient have a future office visit with this provider/department: Yes 05/02/24 Requested Prescriptions Pending Prescriptions Disp Refills HYDROcodone-acetaminophen (NORCO) 5-325 mg per tablet 60 tablet 0 Sig: Take 1 tablet by mouth every 6 hours as needed for up to 31 days. SUMAtriptan (IMITREX) 100 mg tablet 9 tablet 3 Sig: Take 1 tablet (100 mg) by mouth as needed. Dayami Cline March 16, 2024 8:46 AM [facility] 03-16-2024 Miscellaneous Notes Prescription Refill Information The patient has been identified by name and date of : Yes Caregiver verified no other encounters exist for this prescription request: Yes Caregiver confirmed with patient/requestor that no other refills are due, in the near future, with this provider at this time: Yes The last office visit in the department: 03/07/2024 Does the patient have a future office visit with this provider/department: Yes 05/02/24 Requested Prescriptions Pending Prescriptions Disp Refills HYDROcodone-acetaminophen (NORCO) 5-325 mg per tablet 60 tablet 0 Sig: Take 1 tablet by mouth every 6 hours as needed for up to 31 days. SUMAtriptan (IMITREX) 100 mg tablet 9 tablet 3 Sig: Take 1 tablet (100 mg) by mouth as needed. Dayami Cline March 16, 2024 8:46 AM documented in this encounter [facility] 03-11-2024 Telephone encounter Note Pt notified and verbalized understanding Naz Coronel MA [facility] 03-11-2024 Miscellaneous Notes Pt notified and verbalized understanding Naz Coronel MA Can please let patient know that I received her urine results, which was negative for infection. Madelaine Tomlinson APRN.BOONE documented in this encounter [facility] 03-11-2024 Telephone encounter Note Can please let patient know that I received her urine results, which was negative for infection. Madelaine Tomlinson APRN.CNP [facility] 03-09-2024 Telephone encounter Note Patient was notified Cori Hanson MA [facility] 03-09-2024 Miscellaneous Notes Patient was notified Cori Hanson MA Let her know her labs are ok. documented in this encounter [facility] 03-09-2024 Telephone encounter Note Let her know her labs are ok. [facility] 03-09-2024 Telephone encounter Note Scan has already been completed on 03/07/24. Madelaine Tomlinson APRN.CNP [facility] 03-09-2024 Miscellaneous Notes Scan has already been completed on 03/07/24. Madelaine Tomlinson APRN.CNP Jo L calling from [employer] calling with alternate recommendation to ct it is a ct of abdomin and pelvis with and with out contrast.cpt code 88421. Number to call option 4 reference documented in this encounter [facility] 03-09-2024 Telephone encounter Note Jo Iglesias calling from [employer] calling with alternate recommendation to ct it is a ct of abdomin and pelvis with and with out contrast.cpt code 84040. Number to call option 4 reference [facility] 03-08-2024 Telephone encounter Note Pt notified of results/provider response. She verbalized understanding. Please assist pt with scheduling ultrasounds. Chris Bullard LPN [facility] 03-08-2024 Miscellaneous Notes Pt notified of results/provider response. She verbalized understanding. Please assist pt with scheduling ultrasounds. Chris Bullard LPN Results reviewed. It looks like there is a small density on the liver, which is likely a small cyst (which does not require treatment). This likely is not the source of her discomfort. However, I do usually like to follow-up with a repeat ultrasound in 6-12 months to ensure stability. (The order is in and will just need scheduled). 2. It does show that she has diverticulosis, which are pouches in the colon. None appear to be inflamed or irritated. 3. It also showed a small diverticulum (pouch) in the stomach. It is small. This could be causing some of the stomach symptoms (nausea, reflux, burping). First line treatment is the medication like the omeprazole. If no better over the next couple of weeks, let us know. 4. There is a collapsing left ovarian cyst. This could be contributing to her symptoms. It looks like she has fibroids (benign growths) in her uterus. It also shows a lesion near her cervix which is likely a nabothian cyst (again, benign in nature). However we should plan on getting a pelvic ultrasound that would be better able evaluate these things. I went ahead and put this order in so she get scheduled for this. 5. Her urinalysis showed some bilirubin in her urine. I would also like to get a liver panel (blood work) to ensure this is okay. She should be able to stop into the lab at her convenience. 6. The urine culture is still in process. We'll let her know when this is back. Patient calling and asking about the results of CT scan that was done yesterday. Please review and advise, Renuka Hernandez RN documented in this encounter [facility] 03-08-2024 Telephone encounter Note Results reviewed. It looks like there is a small density on the liver, which is likely a small cyst (which does not require treatment). This likely is not the source of her discomfort. However, I do usually like to follow-up with a repeat ultrasound in 6-12 months to ensure stability. (The order is in and will just need scheduled). 2. It does show that she has diverticulosis, which are pouches in the colon. None appear to be inflamed or irritated. 3. It also showed a small diverticulum (pouch) in the stomach. It is small. This could be causing some of the stomach symptoms (nausea, reflux, burping). First line treatment is the medication like the omeprazole. If no better over the next couple of weeks, let us know. 4. There is a collapsing left ovarian cyst. This could be contributing to her symptoms. It looks like she has fibroids (benign growths) in her uterus. It also shows a lesion near her cervix which is likely a nabothian cyst (again, benign in nature). However we should plan on getting a pelvic ultrasound that would be better able evaluate these things. I went ahead and put this order in so she get scheduled for this. 5. Her urinalysis showed some bilirubin in her urine. I would also like to get a liver panel (blood work) to ensure this is okay. She should be able to stop into the lab at her convenience. 6. The urine culture is still in process. We'll let her know when this is back. [facility] 03-08-2024 Telephone encounter Note Patient calling and asking about the results of CT scan that was done yesterday. Please review and advise, Renuka Hernandez RN [facility] 03-07-2024 History of Present illness Narrative Radiology Service Progress Note DATE OF SERVICE: March 07, 2024 TIME: 4:01 PM PATIENT IDENTITY VERIFICATION COMPLETED USING TWO (2) STANDARD IDENTIFIERS: Name and Date of confirmed by patient verbally. FALL SCREENING: Has the patient had 2 falls in the last year or 1 fall with injury or currently using an Ambulatory Assistive Device (Walker, Cane, Wheelchair, Crutches, etc.)? No PATIENT GENDER DATA: Female. status: : No status: NO. PATIENT RELEVANT IMPLANT DATA REVIEWED: Yes PATIENT PRESENTS WITH AN IMPLANTABLE OR ATTACHED ZINC PLATE GRAINER: No ALLERGIES: Reviewed and unchanged CONTRAST ALLERGY: NO. EXAM: CT -CONTRAST INDUCED NEPHROPATHY RISK FACTORS: Not applicable CREATININE: Creatinine Date Value Ref Range Status 07/09/2023 0.62 0.58 - 0.96 mg/dL Final 02/07/2022 0.69 0.58 - 0.96 mg/dL Final 06/22/2020 0.79 0.58 - 0.96 mg/dL Final Estimated Glomerular Filtration Rate Date Value Ref Range Status 07/09/2023 111 >=60 mL/min/1.73m Final Comment: Estimated Glomerular Filtration Rate (eGFR) is calculated using the 2020 CKD-EPI creatinine equation. This equation utilizes serum creatinine, sex, and age as parameters. The creatinine assay has traceable calibration to isotope dilution-mass spectrometry. Refer to KDIGO guidelines for clinical interpretation. In patients with unstable renal function, e.g. those with acute kidney injury, the eGFR may not accurately reflect actual GFR. eGFR- Date Value Ref Range Status 06/22/2020 >60 Final P.O.C.T. RESULTS: POC done: Yes, See Lab Tab March 07, 2024 TREATMENT: N/A PERIPHERAL IV DATA: Ambulatory: A peripheral IV was started in the Left antecubital site with a Angio cath: 22 gauge. RADIOLOGY DEPARTMENT: CT; Exam(s) Completed: Abdomen/Pelvis SIGNATURE: RT Mykel(R) PATIENT NAME: Anastasia Simpson DATE: March 07, 2024 TIME: 4:01 PM documented in this encounter [facility] 03-07-2024 Instructions Madelaine Tomlinson APRN.CNP - 03/07/2024 11:46 AM EDT Schedule the CT. To ER with any severe symptoms. documented in this encounter [facility] 03-07-2024 History of Present illness Narrative This is a 48 year old female who presents today with: Patient presents with: Recheck: Follow up UC 03/05/24- hematuria; burning with urination HISTORY OF PRESENT ILLNESS: Anastasia Simpson is a 48 year old female. Patient presents with: Recheck: Follow up UC 03/05/24- hematuria; burning with urination Pt presents today with complaint of urinary symptoms. Started with urinary symptoms 2 days ago and went to urgent care. She was having burning, frequency, pressure. Had urine culture. No results of urinalysis; however per notes had hematuria? Waves of nausea over the weekend. Nausea more consistent today. Some loose stools. No fevers/chills. Some lower back pain on the weekend. Little stabbing pain in the left lower quadrant. No vaginal symptoms. Denies . No personal hx of kidney stones. PAST MEDICAL HISTORY: PAST MEDICAL HISTORY Diagnosis Date Basal cell carcinoma 2011, 2016 multiple sites High blood pressure Moderate major depression, single episode (HCC) 11/13/2020 PMH - PAST MEDICAL HISTORY OF irritable bowel syndrome PMH - PAST MEDICAL HISTORY OF back pain PMH - PAST MEDICAL HISTORY OF Injections L4-L5 by Dr Knox in [place] PAST SURGICAL HISTORY Procedure Laterality Date COLONOSCOPY FLX DX W/COLLJ SPEC WHEN PFRMD 02/28/2020 Colonoscopy-Dr Bryant ESOPHAGOGASTRODUODENOSCOPY TRANSORAL DIAGNOSTIC 02/28/2020 EGD-Dr Bryant LAPAROSCOPIC CHOLECYSTECTOMY 08/26/2018 Dr. Bryant MOHS TRUNK/ARM/LEG 1ST STAGE 5 BLOCKS multiple BCC PAST SURGICAL HISTORY OF 02/2003 x2 discectomy L4-5 S1 PAST SURGICAL HISTORY OF D&C PAST SURGICAL HISTORY OF 07/11/2004 L5-S1 anterior lumbar interbody fusion with posterior L5-S1 translaminar facet screw on left side and a facet joint screw on the right side, and this would be a 360-degree fusion PAST SURGICAL HISTORY OF 1999 lasix eye surgery PAST SURGICAL HISTORY OF 2003 wisdom teeth S THERMACHOICE UTERINE BALLOON 01/02/15 Hysteroscopy w/ endometrial ablation ALLERGIES Celestone [Betamethasone Sodium Phosphate], Codeine, Neurontin [Gabapentin], and Sulfa (Sulfonamide Antibiotics) MEDICATIONS Current Outpatient Medications Medication Sig nitrofurantoin monohydrate and macrocrystal (MACROBID) 100 mg capsule Take 1 capsule by mouth two times a day for 5 days. omeprazole (PRILOSEC) 20 mg capsule Take 1 capsule by mouth daily before breakfast. 1/2 hr before meal. HYDROcodone-acetaminophen (NORCO) 5-325 mg per tablet Take 1 tablet by mouth every 6 hours as needed for up to 31 days. escitalopram oxalate (LEXAPRO) 5 mg tablet Take 1 tablet by mouth once daily. Take 1 tab a day for one week and then increase to 2 tabs a day SUMAtriptan (IMITREX) 100 mg tablet Take 1 tablet (100 mg) by mouth as needed. valACYclovir (VALTREX) 1 gram tablet Take 1 tablet by mouth two times a day. cyclobenzaprine (FLEXERIL) 10 mg tablet Take 1 tablet by mouth three times a day as needed for muscle spasm. (Patient not taking: Reported on 03/05/2024) propranolol ER (INDERAL LA) 60 mg 24 hr capsule Take 1 capsule by mouth once daily. mometasone (ELOCON) 0.1 % cream Apply 1 application to affected area once daily. (Patient not taking: Reported on 03/05/2024) SENNOSIDES 8.6 MG TAB as needed for constipation No current facility-administered medications for this visit. FAMILY HISTORY Problem Relation Age of Onset Lipids Mother Headache Mother Ischemic Heart Disease Maternal Grandmother Skin Cancer Maternal Grandmother 60 Ischemic Heart Disease Maternal Grandfather other (Melanoma [Other]) Maternal Grandfather 81 Hypertension Paternal Grandmother all grandparents Breast Cancer Paternal Grandmother 66 Breast Cancer Paternal Aunt 45 bilateral Colon Cancer Paternal Aunt 55 other (Kidney Cancer [Other]) Paternal Aunt 55 Breast Cancer Paternal Aunt 40s Breast Cancer Maternal Aunt 50s Social History Tobacco Use Smoking status: Never Smokeless tobacco: Never Vaping Use Vaping Use: Never used Substance Use Topics Alcohol use: No Drug use: No EXAM: BP 110/82 Pulse 73 Resp 16 LMP 08/20/2023 (Approximate) SpO2 92% PHYSICAL EXAM: General Appearance: Well appearing, alert, in no acute distress, well-hydrated, well nourished.. Skin: Skin color, texture, turgor normal, no suspicious rashes or lesions. Head: Normocephalic, no masses, lesions, tenderness or abnormalities. Eyes: Anicteric sclera. Extraocular movements are intact. . Lungs: Lungs clear to auscultation. No wheezing, rhonchi, rales.. Heart: RRR without murmur, gallop, or rubs. No ectopy. Abdomen: Abdomen soft. + LLQ tenderness. Bowel sounds normal. Neurologic: Gait normal. ASSESSMENT/PLAN: 1. Generalized abdominal pain - ICD9: 789.07, ICD10: R10.84 (primary diagnosis) Pt with left lower quad pain and some loose stools. Will get CT to r/o diverticulitis. Stay hydrated. - CT ABD/PEL W IVCON 2. Hematuria, unspecified type - ICD9: 599.70, ICD10: R31.9 Urine dip negative for blood, but did have nitrates. Will go ahead and send urine for micro and repeat culture. - UA DIP, URINE (POC) - URINE CULTURE - URINALYSIS, WITH MICROSCOPIC 3. Dysuria - ICD9: 788.1, ICD10: R30.0 - UA DIP, URINE (POC) - URINE CULTURE 4. Nausea - ICD9: 787.02, ICD10: R11.0 Zofran prn. Stay hydrated. Will get CT of abdomen. - CT ABD/PEL W IVCON Discussed treatment plan and patient voices understanding. Patient's questions answered appropriately. Medications and potential side effects were discussed and patient voices understanding. Return to the office as scheduled or as needed for worsening/no improvement. Madelaine Tomlinson APRN.SCHOOL TRANSPORTATION SUPERVISOR documented in this encounter [facility] 03-07-2024 Telephone encounter Note Spoke with pt and information listed below given. Pt verbalizes understanding. Pt still having pressure and burning with urination. There was blood noted on the urine culture. Pt scheduled for apt today 03-07-24. Ashley Contreras LPN [facility] 03-07-2024 Miscellaneous Notes Spoke with pt and information listed below given. Pt verbalizes understanding. Pt still having pressure and burning with urination. There was blood noted on the urine culture. Pt scheduled for apt today 03-07-24. Ashley Contreras LPN Left message for pt to call back. Kaveh Walters MA ----- Message from Tanja Sullivan APRN.SCHOOL TRANSPORTATION SUPERVISOR sent at 03/07/2024 9:06 AM EDT ----- Please advise patient: Urine culture did not show clear evidence of infection. She may continue to take antibiotic if it has been helpful. Since there was blood in the urine, we do recommend follow up with PC to ensure this has cleared up. Tanja Sullivan CNP documented in this encounter [facility] 03-07-2024 Telephone encounter Note Left message for pt to call back. Kaveh Walters MA [facility] 03-07-2024 Telephone encounter Note ----- Message from Tanja Sullivan APRN.SCHOOL TRANSPORTATION SUPERVISOR sent at 03/07/2024 9:06 AM EDT ----- Please advise patient: Urine culture did not show clear evidence of infection. She may continue to take antibiotic if it has been helpful. Since there was blood in the urine, we do recommend follow up with PC to ensure this has cleared up. Tanja Sullivan CNP [facility] 03-05-2024 History of Present illness Narrative This note was created using [employer]. Subjective Anastasia Simpson is a 48 year old female. Patient reports 3 days ago she noticed some burning with urination but this quickly resolved. Today at 4am she woke up to urinate and had intense burning with urination and has urinated multiple times already this morning. Denies fever, chills, blood in urine, incontinence. Objective BP 108/78 Pulse 82 Temp 36.6 C (97.8 F) Resp 20 Wt 62.3 kg (137 lb 5.6 oz) LMP 08/20/2023 (Approximate) SpO2 99% BMI 22.17 kg/m Physical Exam PHYSICAL EXAMINATION: General appearance: Well appearing, alert, in no acute distress, well-hydrated, well nourished. Abdomen: Normal abdominal exam, Abdomen soft, non-tender. Bowel sounds normal. No masses, organomegaly Assessment and Plan ASSESSMENT/PLAN: 1. Urinary frequency - ICD9: 788.41, ICD10: R35.0 acute - UA positive for aileen esterase and hematuria - Send urine for culture - Begin treatment with Macrobid 100 mg BID for 5 days - Patient education for prevention given - UA DIP, URINE (POC) - URINE CULTURE - NITROFURANTOIN MONOHYDRATE & MACROCRYSTAL 100 MG ORAL CAP Shantal Vaughan APRN.[employer]ATION SUPERVISOR documented in this encounter [facility] 03-01-2024 History of Present illness Narrative Patient presents with: Follow Up HPI: Patient presents today for office visit for 2 month follow up. CHRONIC PAIN: Patient is currently taking: [place] 5-325 mg q 6 hrs prn Has previously seen specialist who concurs with diagnosis: Yes. Has seen multiple specialists including pain mgt. We were asked to assume control of meds. Discussed abuse potential of medications: Yes. History of diversion or medications abuse: No. Have check oarrs report: Yes. Has signed a controlled substance agreement: Yes. Last in March Has done urine tox screens: Yes. Last in March Patient feels meds are helping them with daily functioning and managing ADL's:Yes. 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 Thinks her insurance coverage is still intact. BARNES's are controlled. Bp is lower side today. Not feeling dizzy or lightheaded. No chest pain or shortness of breath. Has occasional gerd. Has occasional nausea Slight increased burping and belching. Some increased heartburn. No changes in diet. Had egd in 2019. DERM: MEDICATIONS: Current Outpatient Medications Medication Sig HYDROcodone-acetaminophen (NORCO) 5-325 mg per tablet Take 1 tablet by mouth every 6 hours as needed for up to 31 days. famotidine (PEPCID) 20 mg tablet Take 1 tablet by mouth two times a day. escitalopram oxalate (LEXAPRO) 5 mg tablet Take 1 tablet by mouth once daily. Take 1 tab a day for one week and then increase to 2 tabs a day SUMAtriptan (IMITREX) 100 mg tablet Take 1 tablet (100 mg) by mouth as needed. valACYclovir (VALTREX) 1 gram tablet Take 1 tablet by mouth two times a day. cyclobenzaprine (FLEXERIL) 10 mg tablet Take 1 tablet by mouth three times a day as needed for muscle spasm. propranolol ER (INDERAL LA) 60 mg 24 hr capsule Take 1 capsule by mouth once daily. mometasone (ELOCON) 0.1 % cream Apply 1 application to affected area once daily. SENNOSIDES 8.6 MG TAB as needed for constipation No current facility-administered medications for this visit. ALLERGIES: ALLERGIES Allergen Reactions Celestone [Betameth* Other: See Comments Cheeks and neck red and hot- felt like she had a fever in top 1/2 of body, other steroids have been ok Codeine GI UPSET, HEART RACES Neurontin [Gabapent* Other: See Comments Extreme dizziness Sulfa (Sulfonamide * UNKNOWN PAST MEDICAL HISTORY Diagnosis Date Basal cell carcinoma 2011, 2015 multiple sites High blood pressure Moderate major depression, single episode (HCC) 11/13/2020 PMH - PAST MEDICAL HISTORY OF irritable bowel syndrome PMH - PAST MEDICAL HISTORY OF back pain PMH - PAST MEDICAL HISTORY OF Injections L4-L5 by Dr Knox in [place] PAST SURGICAL HISTORY Procedure Laterality Date COLONOSCOPY FLX DX W/COLLJ SPEC WHEN PFRMD 02/28/2020 Colonoscopy-Dr Bryant ESOPHAGOGASTRODUODENOSCOPY TRANSORAL DIAGNOSTIC 02/28/2020 EGD-Dr Bryant LAPAROSCOPIC CHOLECYSTECTOMY 08/26/2018 Dr. Bryant MOHS TRUNK/ARM/LEG 1ST STAGE 5 BLOCKS multiple BCC PAST SURGICAL HISTORY OF 02/2003 x2 discectomy L4-5 S1 PAST SURGICAL HISTORY OF D&C PAST SURGICAL HISTORY OF 07/11/2004 L5-S1 anterior lumbar interbody fusion with posterior L5-S1 translaminar facet screw on left side and a facet joint screw on the right side, and this would be a 360-degree fusion PAST SURGICAL HISTORY OF 1999 lasix eye surgery PAST SURGICAL HISTORY OF 2003 wisdom teeth S THERMACHOICE UTERINE BALLOON 01/02/15 Hysteroscopy w/ endometrial ablation FAMILY HISTORY Problem Relation Age of Onset Lipids Mother Headache Mother Ischemic Heart Disease Maternal Grandmother Skin Cancer Maternal Grandmother 60 Ischemic Heart Disease Maternal Grandfather other (Melanoma [Other]) Maternal Grandfather 81 Hypertension Paternal Grandmother all grandparents Breast Cancer Paternal Grandmother 66 Breast Cancer Paternal Aunt 45 bilateral Colon Cancer Paternal Aunt 55 other (Kidney Cancer [Other]) Paternal Aunt 55 Breast Cancer Paternal Aunt 40s Breast Cancer Maternal Aunt 50s Social History Tobacco Use Smoking status: Never Smokeless tobacco: Never Vaping Use Vaping Use: Never used Substance Use Topics Alcohol use: No Drug use: No Reviewed current medications, allergies, past medical history, surgical history, family history and social history today. REVIEW OF SYSTEMS All other reviewed and negative other than HPI. HEALTH MAINTENANCE: Reviewed health maintenance issues today and recommended the following in detail. BP Controlled (<130/80) Never done DTaP,Tdap,Td Vaccine(3 - Td or Tdap) due on 07/04/2023 Cervical Cancer Screening due on 07/23/2023 Mammogram Screening due on 08/12/2024 VITALS: BP 94/68 Pulse 73 Ht 167.6 cm (5' 6) Wt 61.2 kg (135 lb) LMP 08/20/2023 (Approximate) SpO2 94% BMI 21.79 kg/m Last 4 Encounter Wt Readings: Date: Wt: 09/03/2023 59 kg (130 lb) 07/25/2023 59.9 kg (132 lb) 07/09/2023 61 kg (134 lb 7.7 oz) 05/08/2023 57.5 kg (126 lb 12.8 oz) PHYSICAL EXAMINATION: General appearance: Well appearing, alert, in no acute distress, well-hydrated, well nourished. Skin: Skin color, texture, turgor normal, no suspicious rashes or lesions Head: Normocephalic, no masses, lesions, tenderness or abnormalities Lungs: Lungs clear to auscultation. No wheezing, rhonchi, rales Heart: RRR without murmur, gallop, or rubs. No ectopy Abdomen: Normal abdominal exam, Abdomen soft, non-tender. Bowel sounds normal. No masses, organomegaly Extremities: No deformities, edema, skin discoloration, clubbing or cyanosis. Good capillary refill. ASSESSMENT/PLAN: 1. Gastroesophageal reflux disease without esophagitis - ICD9: 530.81, ICD10: K21.9 (primary diagnosis) - stop pepcid. Change to omeprazole. Call if symptoms worsen at all or if not better in one to two weeks - OMEPRAZOLE 20 MG CAPSULE,DELAYED RELEASE - COMPREHENSIVE METABOLIC PANEL 2. Basal cell carcinoma (BCC), unspecified site - ICD9: 173.91, ICD10: C44.91 - per derm. 3. Postlaminectomy syndrome - ICD9: 722.80, ICD10: M96.1 - continue meds. Benefiting from its use Controlled substance agreement done. 4. Other migraine without status migrainosus, not intractable - ICD9: 346.80, ICD10: G43.809 - stable. 5. Medication monitoring encounter - ICD9: V58.83, ICD10: Z51.81 - COMPREHENSIVE METABOLIC PANEL-as soon as insurance coverage is verfied. - TOXICOLOGY SCREEN, ROUTINE URINE Jacek Scruggs MD documented in this encounter [facility] 02-17-2024 Telephone encounter Note Patient has been identified by name and date of : Patient phones for refill(s): Requested Prescriptions Pending Prescriptions Disp Refills HYDROcodone-acetaminophen (NORCO) 5-325 mg per tablet 60 tablet 0 Sig: Take 1 tablet by mouth every 6 hours as needed for up to 31 days. Date of last office visit in primary care: 12/28/2023 Date of next office visit in primary care: 02/29/2024 Please advise. Thank you. Zelda Sexton. [facility] 02-17-2024 Miscellaneous Notes Patient has been identified by name and date of : Patient phones for refill(s): Requested Prescriptions Pending Prescriptions Disp Refills HYDROcodone-acetaminophen (NORCO) 5-325 mg per tablet 60 tablet 0 Sig: Take 1 tablet by mouth every 6 hours as needed for up to 31 days. Date of last office visit in primary care: 12/28/2023 Date of next office visit in primary care: 02/29/2024 Please advise. Thank you. Zelda Sexton. documented in this encounter [facility] 02-01-2024 Telephone encounter Note .Anastasia is calling Jacek Scruggs MD today with concern regarding Medication Request Patient is calling for medication request/refill to please be sent to [facility] [place]. Sig: Take 1 tablet by mouth twice daily. Sent to pharmacy as: famotidine (PEPCID) 20 mg tablet Class: Normal Patient has been identified by name and birthdate. Duration of symptoms: N/A Person calling: self Call patient at: at home [phone] (home) [phone] (cell) Was an appointment scheduled: No Closing statement: Results or non-symptom based questions: Thank you for calling [facility], your call will be returned within the next business day. Karly Rangel [facility] 02-01-2024 Miscellaneous Notes .Anastasia is calling Jacek Scruggs MD today with concern regarding Medication Request Patient is calling for medication request/refill to please be sent to [facility] [place]. Sig: Take 1 tablet by mouth twice daily. Sent to pharmacy as: famotidine (PEPCID) 20 mg tablet Class: Normal Patient has been identified by name and birthdate. Duration of symptoms: N/A Person calling: self Call patient at: at home [phone] (home) [phone] (cell) Was an appointment scheduled: No Closing statement: Results or non-symptom based questions: Thank you for calling [facility], your call will be returned within the next business day. Karly Rangel documented in this encounter [facility] 01-18-2024 Telephone encounter Note Patient has been identified by name and date of : Yes Patient phones for refill(s): Requested Prescriptions Pending Prescriptions Disp Refills escitalopram oxalate (LEXAPRO) 5 mg tablet Sig: Take 1 tablet by mouth once daily. Take 1 tab a day for one week and then increase to 2 tabs a day HYDROcodone-acetaminophen (NORCO) 5-325 mg per tablet 60 tablet 0 Sig: Take 1 tablet by mouth every 6 hours as needed for up to 31 days. Date of last office visit in primary care: 12/28/2023 Date of next office visit in primary care: 02/29/2024 Please advise. Thank you. Angelique Marlow. [facility] 01-18-2024 Miscellaneous Notes Patient has been identified by name and date of : Yes Patient phones for refill(s): Requested Prescriptions Pending Prescriptions Disp Refills escitalopram oxalate (LEXAPRO) 5 mg tablet Sig: Take 1 tablet by mouth once daily. Take 1 tab a day for one week and then increase to 2 tabs a day HYDROcodone-acetaminophen (NORCO) 5-325 mg per tablet 60 tablet 0 Sig: Take 1 tablet by mouth every 6 hours as needed for up to 31 days. Date of last office visit in primary care: 12/28/2023 Date of next office visit in primary care: 02/29/2024 Please advise. Thank you. Angelique Marlow. documented in this encounter [facility] 12-28-2023 History of Present illness Narrative Patient presents with: Follow Up HPI: Patient presents today for office visit for follow up. Oarrs done. No misuse of meds. Has seen pain management in the past. We were asked to assume control of meds. Benefiting from its use. Aware of benefits and risks. Has signed pain agreement. Up to date on tox screen. Has had three skin lesions removed and all were basal cell cancers. Some increased stress Lexapro is being put to good use. MEDICATIONS: Current Outpatient Medications Medication Sig HYDROcodone-acetaminophen (NORCO) 5-325 mg per tablet Take 1 tablet by mouth every 6 hours as needed for up to 31 days. SUMAtriptan (IMITREX) 100 mg tablet Take 1 tablet (100 mg) by mouth as needed. valACYclovir (VALTREX) 1 gram tablet Take 1 tablet by mouth two times a day. cyclobenzaprine (FLEXERIL) 10 mg tablet Take 1 tablet by mouth three times a day as needed for muscle spasm. propranolol ER (INDERAL LA) 60 mg 24 hr capsule Take 1 capsule by mouth once daily. escitalopram oxalate (LEXAPRO) 5 mg tablet Take 1 tablet by mouth once daily. Take 1 tab a day for one week and then increase to 2 tabs a day mometasone (ELOCON) 0.1 % cream Apply 1 application to affected area once daily. SENNOSIDES 8.6 MG TAB as needed for constipation No current facility-administered medications for this visit. ALLERGIES: ALLERGIES Allergen Reactions Celestone [Betameth* Other: See Comments Cheeks and neck red and hot- felt like she had a fever in top 1/2 of body, other steroids have been ok Codeine GI UPSET, HEART RACES Neurontin [Gabapent* Other: See Comments Extreme dizziness Sulfa (Sulfonamide * UNKNOWN PAST MEDICAL HISTORY Diagnosis Date Basal cell carcinoma 2011, 2015 multiple sites High blood pressure Moderate major depression, single episode (HCC) 11/13/2020 PMH - PAST MEDICAL HISTORY OF irritable bowel syndrome PMH - PAST MEDICAL HISTORY OF back pain PMH - PAST MEDICAL HISTORY OF Injections L4-L5 by Dr Knox in [place] PAST SURGICAL HISTORY Procedure Laterality Date COLONOSCOPY FLX DX W/COLLJ SPEC WHEN PFRMD 02/28/2020 Colonoscopy-Dr Bryant ESOPHAGOGASTRODUODENOSCOPY TRANSORAL DIAGNOSTIC 02/28/2020 EGD-Dr Bryant LAPAROSCOPIC CHOLECYSTECTOMY 08/26/2018 Dr. Bryant MOHS TRUNK/ARM/LEG 1ST STAGE 5 BLOCKS multiple BCC PAST SURGICAL HISTORY OF 02/2003 x2 discectomy L4-5 S1 PAST SURGICAL HISTORY OF D&C PAST SURGICAL HISTORY OF 07/11/2004 L5-S1 anterior lumbar interbody fusion with posterior L5-S1 translaminar facet screw on left side and a facet joint screw on the right side, and this would be a 360-degree fusion PAST SURGICAL HISTORY OF 1999 lasix eye surgery PAST SURGICAL HISTORY OF 2003 wisdom teeth S THERMACHOICE UTERINE BALLOON 01/02/15 Hysteroscopy w/ endometrial ablation FAMILY HISTORY Problem Relation Age of Onset Lipids Mother Headache Mother Ischemic Heart Disease Maternal Grandmother Skin Cancer Maternal Grandmother 60 Ischemic Heart Disease Maternal Grandfather other (Melanoma [Other]) Maternal Grandfather 81 Hypertension Paternal Grandmother all grandparents Breast Cancer Paternal Grandmother 66 Breast Cancer Paternal Aunt 45 bilateral Colon Cancer Paternal Aunt 55 other (Kidney Cancer [Other]) Paternal Aunt 55 Breast Cancer Paternal Aunt 40s Breast Cancer Maternal Aunt 50s Social History Tobacco Use Smoking status: Never Smokeless tobacco: Never Vaping Use Vaping Use: Never used Substance Use Topics Alcohol use: No Drug use: No Reviewed current medications, allergies, past medical history, surgical history, family history and social history today. REVIEW OF SYSTEMS All other reviewed and negative other than HPI. HEALTH MAINTENANCE: Reviewed health maintenance issues today and recommended the following in detail. Hepatitis C Screening Never done HIV Screening Never done BP Controlled (<130/80) Never done DTaP,Tdap,Td Vaccine(3 - Td or Tdap) due on 07/04/2023 Pap Testing due on 07/23/2023 HPV Testing due on 07/23/2023 Behavioral Health Screening Never done VITALS: BP 130/80 Pulse 77 LMP 08/20/2023 (Approximate) SpO2 99% Last 4 Encounter Wt Readings: Date: Wt: 09/03/2023 59 kg (130 lb) 07/25/2023 59.9 kg (132 lb) 07/09/2023 61 kg (134 lb 7.7 oz) 05/08/2023 57.5 kg (126 lb 12.8 oz) PHYSICAL EXAMINATION: General appearance: [...] non-tender. Bowel sounds normal. No masses, organomegaly ASSESSMENT/PLAN: 1. Postlaminectomy syndrome - ICD9: 722.80, ICD10: M96.1 (primary diagnosis) - Continue current medications. Notify us if any difficulties are noted. 2. Basal cell carcinoma (BCC), unspecified site - ICD9: 173.91, ICD10: C44.91 - follow with derm. 3. Anxiety - ICD9: 300.00, ICD10: F41.9 - continue meds. 4. Other migraine without status migrainosus, not intractable - ICD9: 346.80, ICD10: G43.809 - no changes. Jacek Scruggs MD documented in this encounter [facility] 12-21-2023 Miscellaneous Notes Patient has been identified by name and date of : Patient phones for refill(s): Requested Prescriptions Pending Prescriptions Disp Refills HYDROcodone-acetaminophen (NORCO) 5-325 mg per tablet 60 tablet 0 Sig: Take 1 tablet by mouth every 6 hours as needed for up to 31 days. Date of last office visit in primary care: 10/26/2023 Date of next office visit in primary care: 12/28/2023 Please advise. Thank you. Zelda Sexton. documented in this encounter [facility] 12-07-2023 Miscellaneous Notes Pharmacy verified in [facility] Patient has been identified by name and date of : Yes Patient aware RX will be sent to pharmacy. No need to notify patient. Patient phones for refill(s): Requested Prescriptions Pending Prescriptions Disp Refills SUMAtriptan (IMITREX) 100 mg tablet 9 tablet 3 Sig: Take 1 tablet (100 mg) by mouth as needed. Date of last office visit : 10/26/2023 Date of next office visit : 12/28/2023 Last 2 Encounter Wt Readings: Date: Wt: 09/03/2023 59 kg (130 lb) 07/25/2023 59.9 kg (132 lb) Not applicable Please advise. Nguyen Maravilla Pss documented in this encounter [facility] 11-23-2023 Miscellaneous Notes The following approved medication requests have been transmitted electronically. Requested Prescriptions Signed Prescriptions Disp Refills HYDROcodone-acetaminophen (NORCO) 5-325 mg per tablet 60 tablet 0 Sig: Take 1 tablet by mouth every 6 hours as needed for up to 31 days. Authorizing Provider: John PFEIFFER PA-C Patient has been identified by name and date of : Yes Patient phones for refill(s): Requested Prescriptions Pending Prescriptions Disp Refills HYDROcodone-acetaminophen (NORCO) 5-325 mg per tablet 60 tablet 0 Sig: Take 1 tablet by mouth every 6 hours as needed for up to 31 days. Date of last office visit in primary care: 10/26/2023 Date of next office visit in primary care: 12/28/2023 Please advise. Thank you. Mary Wang Pss. documented in this encounter [facility] 10-26-2023 Miscellaneous Notes Addended by: JACEK SCRUGGS on: 10/26/2023 07:19 PM Modules accepted: Orders documented in this encounter [facility] 10-26-2023 History of Present illness Narrative Patient presents with: Follow Up HPI: Patient presents today for office visit for follow up. Has had increased stress at work. BARNES:are doing well. Has not used sumatriptan recently. Doing very well. PSYCH:emotionally doing well. CHRONIC PAIN:oarrs done. Tox screen done. No misuse or abuse. Has has seen multiple specialists including pain management. Meds help her to function on a daily basis. Meds do work. Controlled substance agreement completed. Derm: following regularly. MEDICATIONS: Current Outpatient Medications Medication Sig HYDROcodone-acetaminophen (NORCO) 5-325 mg per tablet Take 1 tablet by mouth every 6 hours as needed for up to 31 days. cyclobenzaprine (FLEXERIL) 10 mg tablet Take 1 tablet by mouth three times a day as needed for muscle spasm. SUMAtriptan (IMITREX) 100 mg tablet Take 1 tablet (100 mg) by mouth as needed. propranolol ER (INDERAL LA) 60 mg 24 hr capsule Take 1 capsule by mouth once daily. escitalopram oxalate (LEXAPRO) 5 mg tablet Take 1 tablet by mouth once daily. Take 1 tab a day for one week and then increase to 2 tabs a day mometasone (ELOCON) 0.1 % cream Apply 1 application to affected area once daily. SENNOSIDES 8.6 MG TAB as needed for constipation No current facility-administered medications for this visit. ALLERGIES: ALLERGIES Allergen Reactions Celestone [Betameth* Other: See Comments Cheeks and neck red and hot- felt like she had a fever in top 1/2 of body, other steroids have been ok Codeine GI UPSET, HEART RACES Neurontin [Gabapent* Other: See Comments Extreme dizziness Sulfa (Sulfonamide * UNKNOWN PAST MEDICAL HISTORY Diagnosis Date Basal cell carcinoma 2011, 2015 multiple sites High blood pressure Moderate major depression, single episode (HCC) 11/13/2020 PMH - PAST MEDICAL HISTORY OF irritable bowel syndrome PMH - PAST MEDICAL HISTORY OF back pain PMH - PAST MEDICAL HISTORY OF Injections L4-L5 by Dr Knox in [place] PAST SURGICAL HISTORY Procedure Laterality Date COLONOSCOPY FLX DX W/COLLJ SPEC WHEN PFRMD 02/28/2020 Colonoscopy-Dr Bryant ESOPHAGOGASTRODUODENOSCOPY TRANSORAL DIAGNOSTIC 02/28/2020 EGD-Dr Bryant LAPAROSCOPIC CHOLECYSTECTOMY 08/26/2018 Dr. Bryant MOHS TRUNK/ARM/LEG 1ST STAGE 5 BLOCKS multiple BCC PAST SURGICAL HISTORY OF 02/2003 x2 discectomy L4-5 S1 PAST SURGICAL HISTORY OF D&C PAST SURGICAL HISTORY OF 07/11/2004 L5-S1 anterior lumbar interbody fusion with posterior L5-S1 translaminar facet screw on left side and a facet joint screw on the right side, and this would be a 360-degree fusion PAST SURGICAL HISTORY OF 1999 lasix eye surgery PAST SURGICAL HISTORY OF 2003 wisdom teeth S THERMACHOICE UTERINE BALLOON 01/02/15 Hysteroscopy w/ endometrial ablation FAMILY HISTORY Problem Relation Age of Onset Lipids Mother Headache Mother Ischemic Heart Disease Maternal Grandmother Skin Cancer Maternal Grandmother 60 Ischemic Heart Disease Maternal Grandfather other (Melanoma [Other]) Maternal Grandfather 81 Hypertension Paternal Grandmother all grandparents Breast Cancer Paternal Grandmother 66 Breast Cancer Paternal Aunt 45 bilateral Colon Cancer Paternal Aunt 55 other (Kidney Cancer [Other]) Paternal Aunt 55 Breast Cancer Paternal Aunt 40s Breast Cancer Maternal Aunt 50s Social History Tobacco Use Smoking status: Never Smokeless tobacco: Never Vaping Use Vaping Use: Never used Substance Use Topics Alcohol use: No Drug use: No Reviewed current medications, allergies, past medical history, surgical history, family history and social history today. REVIEW OF SYSTEMS All other reviewed and negative other than HPI. HEALTH MAINTENANCE: Reviewed health maintenance issues today and recommended the following in detail. Hepatitis C Screening Never done HIV Screening Never done Influenza Vaccine(1) due on 05/22/2023 DTaP,Tdap,Td Vaccine(3 - Td or Tdap) due on 07/04/2023 Pap Testing due on 07/23/2023 HPV Testing due on 07/23/2023 Depression Assessment due on 09/21/2023 VITALS: BP 122/82 Pulse 80 LMP 08/20/2023 (Approximate) SpO2 99% Last 4 Encounter Wt Readings: Date: Wt: 09/03/2023 59 kg (130 lb) 07/25/2023 59.9 kg (132 lb) 07/09/2023 61 kg (134 lb 7.7 oz) 05/08/2023 57.5 kg (126 lb 12.8 oz) PHYSICAL EXAMINATION: General appearance: Well appearing, alert, in no acute distress, well-hydrated, well nourished. Skin: Skin color, texture, turgor normal, no suspicious rashes or lesions Head: Normocephalic, no masses, lesions, tenderness or abnormalities Lungs: Lungs clear to auscultation. No wheezing, rhonchi, rales Heart: RRR without murmur, gallop, or rubs. No ectopy Abdomen: Normal abdominal exam, Abdomen soft, non-tender. Bowel sounds normal. No masses, organomegaly Extremities: No deformities, edema, skin discoloration, clubbing or cyanosis. Good capillary refill. ASSESSMENT/PLAN: 1. Other migraine without status migrainosus, not intractable - ICD9: 346.80, ICD10: G43.809 (primary diagnosis) - continue to follow up. 2. DDD (degenerative disc disease), lumbar - ICD9: 722.52, ICD10: M51.36 - refilled meds. - HYDROCODONE 5 MG-ACETAMINOPHEN 325 MG TABLET 3. Basal cell carcinoma (BCC), unspecified site - ICD9: 173.91, ICD10: C44.91 - per derm 4. Postlaminectomy syndrome - ICD9: 722.80, ICD10: M96.1 - continue meds. 5. Anxiety - ICD9: 300.00, ICD10: F41.9 - doing well. Jacek Scruggs MD documented in this encounter [facility] 09-01-2023 Miscellaneous Notes Patient calling on the status of refill. CAROLEE 08/03/23 NOV 10/12/23 Patient has been identified by name and date of : Yes Requested Prescriptions Pending Prescriptions Disp Refills HYDROcodone-acetaminophen (NORCO) 5-325 mg per tablet 60 tablet 0 Sig: Take 1 tablet by mouth every 6 hours as needed for up to 31 days. RX INSTRUCTIONS: Patient aware RX will be sent to pharmacy. No need to notify patient. Zelda Sexton documented in this encounter [facility] [facility] History of Present illness Narrative Episode Visit Count: 1 Therapist That Will Accept/Oversee The Plan Of Care: Anastsaia Winter Start of Care Date: 08/24/23 Onset Date: 02/22/23 (about 6 months ago) Patient Identified by Name and Date of : Yes REHABILITATION AND SPORTS THERAPY PHYSICAL THERAPY EVALUATION PLAN OF CARE: Assessment: Anastasia Simpson presents with diagnosis of neck pain, radicular pain in L arm, and acute left-sided thoracic back pain that interferes with sleeping, driving, lifting (turning head (driving), nervous/cautious about lifting) . She presents with impairments in flexibility/soft tissue restrictions, overall function, posture, range of motion, symptom management, and tissue tenderness. Patient did not complete the PROMIS (Patient Reported Outcome Measures Information System). Prognosis for therapy is Good due to: current objective clinical presentation, good overall health status, good support system/ coping skills . She will benefit from skilled therapy services to meet the goals established for this plan of care as noted below. Goals for Episode of Care: created on 08/24/23 through 10/25/23 [place] in home exercise program. Patient will decrease pain rating by 2 points to meet minimal clinical important difference for numeric pain rating scale. Patient will increase active ROM of cervical spine to lateral flexion to 45-60 deg to allow pt to to improve postural alignment and to improve performance of ADLs. Patient will demonstrate increase in postural musculature strength to 4+ to5/5 during manual muscle testing in order to improve function for leisure / recreation skills, prior functional tasks, and work tasks. Patient will increase flexibility of upper traps, levator scapulae to equal unaffected extremity/side and WNL to improve ability to maintain proper posture, improve mechanics, decrease pain, and reduction of soft tissue restrictions. Perform sleeping;driving;lifting; and all work activities without pain. Improve postural awareness. Patient Goals: To reduce or eliminate the pain. Planned Interventions, Frequency, and Duration: Current Frequency: 2x/week Duration: 8 weeks Total Number of Visits Planned: 16 Planned Treatment Interventions: Therapeutic exercise (65885), Neuromuscular re-education (51502), Manual therapy (56843), Patient/Family/Caregiver Education, Self-longterm management ([id number]) PLAN FOR NEXT VISIT: Assess response to HEP and review for correct performance. Progress cervical and postural exercises/HEP. May add manual techniques for soft tissue restrictions (trigger point, IASTM, tennis/lacrosse ball). Patient demonstrates good understanding of plan of care and treatment. The above goals and plan of care were discussed and agreed upon by patient/family. SUBJECTIVE: Pt reports L neck pain and down towards shld blade, L UE. Has had 4 episodes in past 6 months, but this one is not going away. Pt describes waking up with deep neck pain. Last time was pulling shower curtain and the joseph came down, ducked her head and had sudden onset of significant pain. Currently pain is pretty steady, manageable compared to what it was originally. Worse when turning head to L. At one point was painful to swallow, not currently. Patient Goals: To reduce or eliminate the pain. 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 Intake Information: Prescription present Previous Treatment: Ice Spine History Sleeping Position: Supine, Side lying right, Side lying left Sleep Affected by Pain: Pain keeps from falling asleep, Pain awakens Pain: Pain Pain Level: 5 Pain Location: Neck - Left, Scapula - Left, Shoulder - Left (to superomedial scapula, cuff of shld (deltoid area)) Description: (achey, heavy, numb initially) Frequency: Continuous, Intermittent (neck pain continuous, shld pain intermittent) Post Treatment Pain Post Treatment Pain Level: 6 Post Treatment Pain Location: Neck - Left (L upper trap) Post Treatment Pain Description: (It feels like it's been worked, not a sharp pain.) PROMIS Scales T-scores: mean of general population = 50. 5 points is clinically meaningfully difference Percentiles provide an indication of how the patient's score ranks in relation to the general population. Higher percentile rankings indicate better function/quality of life. 50th percentile is the average of the general population and indicates half of respondents had a worse score. OBJECTIVE MEASURES WITH LEVEL OF FUNCTION: Posture / Alignment Posture: Forward head, Rounded shoulders, Decreased lumbar lordosis UE Observations: tragus to wall 7.5in Spine Observations L Cervical Spine Palpation Tenderness: Upper trapezius, Levator scapulae, Spinous process Cervical Spine ROM Cervical ROM : Measurement AROM Cervical Flexion AROM (degrees) : 45 Degrees (pain) Cervical Extension AROM (degrees) : 25 Degrees (pain) Cervical Side-Bend Right AROM (degrees): 40 Degrees (pain) Cervical Side-Bend Left AROM (degrees) : 25 Degrees (pain) Cervical Rotation Right AROM (degrees) : 60 Degrees Cervical Rotation Left AROM (degrees) : 60 Degrees (end range pain) Repeated Test Movements - Cervical Cervical PRO - Symptoms During: produces Cervical PRO - Symptoms After: no worse Cervical RET - Symptoms During: produces Cervical RET - Symptoms After: worse Education: Education Learning Preferences: Demonstration, Explanation Barriers: None Learning/educational needs: Home exercise program, Plan of Care, Posture Education Provided: Yes, see treatment interventions for education provided Education Provided To: Patient Education Mode/Type: Demonstration, Explanation/Discussion, Literature/Printed Materials, Performance Response to Education/Teach Back: States/Identifies, Return Demonstration TREATMENT: PT Treatment Interventions: Therapeutic Exercise, Neuromuscular Re-Education Evaluation Therapeutic Exercise: 1: *posterior shld circles x 20 2: *scapular retractions 2 x 10 3: *upper trap stretches 3 x 30 sec holds Skilled Intervention: Patient was educated in proper exercise technique and purpose for exercises. Skilled judgment was used in selection of appropriate interventions. Provided written instruction for home exercise program to facilitate proper performance and compliance. Correct performance of therapeutic exercises was facilitated with verbal and visual cuing. Patient education as noted. Neuromuscular Re-Education: 1: Educated pt in sitting posture and relation to cervical anatomy and symptoms. Educated in use of lumbar roll for support when sitting at work, car and home. Discussed avoidance of leaning chin on hand with elbow propped on desk or arm of chair. 2: Educated pt on positioning for comfort and reduction of symptoms while sleeping. Skilled Intervention: Education in sitting posture using a lumbar roll and slouch/correction for body awareness. Education and demonstration for posture and positioning for pain management. Patient education as noted. Billing * Evaluation Low Complexity: 1 Unit Therapeutic Exercise Treatment Minutes: 15 Neuromuscular Re-Education Treatment Minutes: 8 Skilled Treatment Time Minutes (timed and untimed codes): 43 Total Session Time (minutes): 43 Session Start Time : 1717 Session Stop Time : 1800 Anastasia Winter PT Program_ID:[id number] Access Code: [email or web address] URL: [email or web address] Date: 08-24-2023 Prepared By: Anastasia Winter Program Notes Exercises - Seated Shoulder Circles - 3 x daily - 7 x weekly - 2 - 10 - Seated Scapular Retraction - 2 x daily - 7 x weekly - 2 - 10 - Seated Upper Trapezius Stretch - 2 x daily - 7 x weekly - - 3-5 Program_ID:[id number] Access Code: [email or web address] URL: [email or web address] Date: 08-24-2023 Prepared By: Anastasia Winter Program Notes Exercises - Seated Shoulder Circles - 3 x daily - 7 x weekly - 2 - 10 - Seated Scapular Retraction - 2 x daily - 7 x weekly - 2 - 10 - Seated Upper Trapezius Stretch - 2 x daily - 7 x weekly - - 3-5 documented in this encounter [facility] 08-17-2023 Miscellaneous Notes Patient informed via VM. VM verified. Advised to call back with any questions or concerns. Amee Paz Let her know her mammogram was ok. documented in this encounter [facility] 08-12-2023 History of Present illness Narrative Radiology Service Progress Note PATIENT NAME: Anastasia Simpson DATE OF SERVICE: August 12, 2023 TIME: 11:19 AM PATIENT IDENTITY VERIFICATION COMPLETED USING TWO (2) IDENTIFIERS: Name and Date of confirmed by patient verbally. FALL SCREENING: Has the patient had 2 falls in the last year or 1 fall with injury or currently using an Ambulatory Assistive Device (Walker, Cane, Wheelchair, Crutches, etc.)? No PATIENT GENDER DATA: Female. status: : No status: NO. PATIENT RELEVANT IMPLANT DATA REVIEWED: Not Applicable RADIOLOGY DEPARTMENT: Mammography PERIPHERAL IV DATA: Not applicable SIGNED BY: Zuri Lazo [employer] August 12, 2023 11:19 AM documented in this encounter [facility] 08-05-2023 Miscellaneous Notes Patient informed. Amee Gordon Let her know her xray is negative. documented in this encounter [facility] 08-03-2023 History of Present illness Narrative Radiology Service Progress Note PATIENT NAME: Anastasia Simpson DATE OF SERVICE: August 03, 2023 TIME: 7:01 PM PATIENT IDENTITY VERIFICATION COMPLETED USING TWO (2) IDENTIFIERS: Name and Date of confirmed by patient verbally. FALL SCREENING: Has the patient had 2 falls in the last year or 1 fall with injury or currently using an Ambulatory Assistive Device (Walker, Cane, Wheelchair, Crutches, etc.)? No PATIENT GENDER DATA: Female. status: : No status: NO. PATIENT RELEVANT IMPLANT DATA REVIEWED: Not Applicable RADIOLOGY DEPARTMENT: General X-ray: Exam(s) Completed: Spine X-Ray(s): Thoracic PERIPHERAL IV DATA: Not applicable SIGNED BY: RT Rosalia(R) August 03, 2023 7:01 PM documented in this encounter [facility] 08-03-2023 History of Present illness Narrative Patient presents with: Follow Up: 2 month follow up for meds ED Follow-up: Saw UC had pred and shot of toradol for neck pain. HPI: Patient presents today for office visit for follow up. Saw ER on 07/09 See plan: Patient's labs are normal CT and CTA are normal. She continues to have left arm pain. Recommendation of neurology is observation MRI and reevaluation in hospital. Patient does not want to stay and it was explained that although we do not find anything at this time still cannot rule out other causes Further investigation is needed. She understands that she can return at any time if she changes her mind. Stroke is not completely off the table or is radicular cervical issue or cardiac issue although EKG and troponins are normal at this time this was all relayed to the patient she states that she understands and still wishes to leave. Neuro did see her via telemed. [place] it was unlikely to be stroke like. Recommended MRI if persists. Saw Rhea in urgent care on 11/4: Given steroids nad flexeril for her left neck and shoulder. Given toradol shot. xr of neck was negative. Once it improved her arm is better. Has had four episodes of pain in the neck going into shoulder blade over the last few months. No current weakness. Or numbness. No trauma. Arm does go to sleep in that area. Seems to be positional. Bp is stable. No chest pain or shortness of breath. Continues to use pain meds for chronic lumbar pain. Has seen specialty. No misuse or abuse. Uses prn. Tox screen and opiod agreement are up to date. Helps her to function. Emotionally is doing well. MEDICATIONS: Current Outpatient Medications Medication Sig cyclobenzaprine (FLEXERIL) 10 mg tablet Take 1 tablet by mouth three times a day as needed for muscle spasm. predniSONE (DELTASONE) 10 mg tablet Take 4 tabs daily x 3 days, then 3 tabs x 3 days, 2 tabs x 3 days, then 1 tab x3 days with food. HYDROcodone-acetaminophen (NORCO) 5-325 mg per tablet Take 1 tablet by mouth every 6 hours as needed for up to 31 days. SUMAtriptan (IMITREX) 100 mg tablet Take 1 tablet (100 mg) by mouth as needed. propranolol ER (INDERAL LA) 60 mg 24 hr capsule Take 1 capsule by mouth once daily. escitalopram oxalate (LEXAPRO) 5 mg tablet Take 1 tablet by mouth once daily. Take 1 tab a day for one week and then increase to 2 tabs a day famotidine (PEPCID) 20 mg tablet Take 1 tablet by mouth twice daily. mometasone (ELOCON) 0.1 % cream Apply 1 application to affected area once daily. SENNOSIDES 8.6 MG TAB as needed for constipation No current facility-administered medications for this visit. ALLERGIES: ALLERGIES Allergen Reactions Celestone [Betameth* Other: See Comments Cheeks and neck red and hot- felt like she had a fever in top 1/2 of body, other steroids have been ok Codeine GI UPSET, HEART RACES Neurontin [Gabapent* Other: See Comments Extreme dizziness Sulfa (Sulfonamide * UNKNOWN PAST MEDICAL HISTORY Diagnosis Date Basal cell carcinoma 2011, 2015 multiple sites High blood pressure Moderate major depression, single episode (HCC) 11/13/2020 PMH - PAST MEDICAL HISTORY OF irritable bowel syndrome PMH - PAST MEDICAL HISTORY OF back pain PMH - PAST MEDICAL HISTORY OF Injections L4-L5 by Dr Knox in [place] PAST SURGICAL HISTORY Procedure Laterality Date COLONOSCOPY FLX DX W/COLLJ SPEC WHEN PFRMD 02/28/2020 Colonoscopy-Dr Bryant ESOPHAGOGASTRODUODENOSCOPY TRANSORAL DIAGNOSTIC 02/28/2020 EGD-Dr Bryant LAPAROSCOPIC CHOLECYSTECTOMY 08/26/2018 Dr. Bryant MOHS TRUNK/ARM/LEG 1ST STAGE 5 BLOCKS multiple BCC PAST SURGICAL HISTORY OF 02/2003 x2 discectomy L4-5 S1 PAST SURGICAL HISTORY OF D&C PAST SURGICAL HISTORY OF 07/11/2004 L5-S1 anterior lumbar interbody fusion with posterior L5-S1 translaminar facet screw on left side and a facet joint screw on the right side, and this would be a 360-degree fusion PAST SURGICAL HISTORY OF 1999 lasix eye surgery PAST SURGICAL HISTORY OF 2003 wisdom teeth S THERMACHOICE UTERINE BALLOON 01/02/15 Hysteroscopy w/ endometrial ablation FAMILY HISTORY Problem Relation Age of Onset Lipids Mother Headache Mother Ischemic Heart Disease Maternal Grandmother Skin Cancer Maternal Grandmother 60 Ischemic Heart Disease Maternal Grandfather other (Melanoma [Other]) Maternal Grandfather 81 Hypertension Paternal Grandmother all grandparents Breast Cancer Paternal Grandmother 66 Breast Cancer Paternal Aunt 45 bilateral Colon Cancer Paternal Aunt 55 other (Kidney Cancer [Other]) Paternal Aunt 55 Breast Cancer Paternal Aunt 40s Breast Cancer Maternal Aunt 50s Social History Tobacco Use Smoking status: Never Smokeless tobacco: Never Vaping Use Vaping Use: Never used Substance Use Topics Alcohol use: No Drug use: No Reviewed current medications, allergies, past medical history, surgical history, family history and social history today. REVIEW OF SYSTEMS Three spots that showed BCC. All other reviewed and negative other than HPI. HEALTH MAINTENANCE: Reviewed health maintenance issues today and recommended the following in detail. Mammogram Screening-is due. Influenza Vaccine(1) -just done. VITALS: BP 134/86 Pulse 93 LMP 07/08/2023 (Exact Date) SpO2 98% Last 4 Encounter Wt Readings: Date: Wt: 07/25/2023 59.9 kg (132 lb) 07/09/2023 61 kg (134 lb 7.7 oz) 05/08/2023 57.5 kg (126 lb 12.8 oz) 03/25/2023 57.2 kg (126 lb) PHYSICAL EXAMINATION: General appearance: Well appearing, alert, in no acute distress, well-hydrated, well nourished. Skin: Skin color, texture, turgor normal, no suspicious rashes or lesions Neck: Supple, no adenopathy; thyroid symmetric, normal size, no bruits Back: Normal exam Lungs: Lungs clear to auscultation. No wheezing, rhonchi, rales Heart: RRR without murmur, gallop, or rubs. No ectopy Abdomen: Normal abdominal exam, Abdomen soft, non-tender. Bowel sounds normal. No masses, organomegaly ASSESSMENT/PLAN: 1. Neck pain - ICD9: 723.1, ICD10: M54.2 (primary diagnosis) - CONSULT TO PHYSICAL THERAPY 2. DDD (degenerative disc disease), lumbar - ICD9: 722.52, ICD10: M51.36 - continue meds. Again took over some time ago. Has seen pain management. Meds are assisting in daily functioning. - HYDROCODONE 5 MG-ACETAMINOPHEN 325 MG TABLET 3. Radicular pain in left arm - ICD9: 729.2, ICD10: M79.2 - Red flags for re-assessment reviewed with patient in detail. - CONSULT TO PHYSICAL THERAPY 4. Acute left-sided thoracic back pain - ICD9: 724.1, ICD10: M54.6 - CONSULT TO PHYSICAL THERAPY - XR THORACIC GENERAL 3V AP/LAT/SWIMMERS 5. Screening breast examination - ICD9: V76.10, ICD10: Z12.39 - SKY SCREENING Jacek Scruggs RTO in two months and prn. documented in this encounter [facility] 07-25-2023 History of Present illness Narrative CC: Patient presents with: Pain: Left side of neck and shoulder, x 3 weeks intense pain. HPI Anastasia Simpson is a 47 year old female who presents today for above. Patient reports intermittent episodes of left neck and shoulder pain that started a few weeks ago. Episodes usually last a couple days, this is the worst it has been currently. Located: left posterolateral neck, radiates down the shoulder and into the upper arm Described as: sharp, shooting; skin feels hot Cause: denies any injury, strenuous activities or heavy lifting Pain is aggravated by: any movement of the neck and lifting the left arm above head. Keeping her up at night, unable to find a comfortable position Pain is alleviated by rest and avoiding aggravating movements Denies fever, chills, numbness, tingling or weakness of the extremities, saddle anesthesia, bowel/bladder incontinence, history of IV drug abuse or cancer. Treatments tried: rest and NSAIDs She has a history of chronic low back pain, L5-S1 anterior lumbar fusion and discectomy, and post laminectomy syndrome. No history of neck problems. She was seen in [facility] on 07/09 for sudden onset left arm pain with sensation of weakness and heaviness. Cardiac and stroke work-up were essentially unremarkable. Admission for further monitoring and MRI were recommended but she declined. Current symptoms do not feel similar. Review of Systems Constitutional: Negative. Eyes: Negative for photophobia and visual disturbance. Respiratory: Negative for cough, chest tightness, shortness of breath and wheezing. Cardiovascular: Negative for chest pain, palpitations and leg swelling. Musculoskeletal: Negative for arthralgias, myalgias and neck stiffness. Skin: Negative for rash. Neurological: Negative for dizziness, tremors, syncope, facial asymmetry, speech difficulty, weakness, light-headedness and headaches. PAST MEDICAL HISTORY Diagnosis Date Basal cell carcinoma 2011, 2015 multiple sites High blood pressure Moderate major depression, single episode (HCC) 11/13/2020 PMH - PAST MEDICAL HISTORY OF irritable bowel syndrome PMH - PAST MEDICAL HISTORY OF back pain PMH - PAST MEDICAL HISTORY OF Injections L4-L5 by Dr Knox in [place] PAST SURGICAL HISTORY Procedure Laterality Date COLONOSCOPY FLX DX W/COLLJ SPEC WHEN PFRMD 02/28/2020 Colonoscopy-Dr Bryant ESOPHAGOGASTRODUODENOSCOPY TRANSORAL DIAGNOSTIC 02/28/2020 EGD-Dr Bryant LAPAROSCOPIC CHOLECYSTECTOMY 08/26/2018 Dr. Bryant MOHS TRUNK/ARM/LEG 1ST STAGE 5 BLOCKS multiple BCC PAST SURGICAL HISTORY OF 02/2003 x2 discectomy L4-5 S1 PAST SURGICAL HISTORY OF D&C PAST SURGICAL HISTORY OF 07/11/2004 L5-S1 anterior lumbar interbody fusion with posterior L5-S1 translaminar facet screw on left side and a facet joint screw on the right side, and this would be a 360-degree fusion PAST SURGICAL HISTORY OF 1999 lasix eye surgery PAST SURGICAL HISTORY OF 2003 wisdom teeth S THERMACHOICE UTERINE BALLOON 01/02/15 Hysteroscopy w/ endometrial ablation ALLERGIES Celestone [Betamethasone Sodium Phosphate], Codeine, Neurontin [Gabapentin], and Sulfa (Sulfonamide Antibiotics) MEDICATIONS cyclobenzaprine (FLEXERIL) 10 mg tablet^Take 1 tablet by mouth three times a day as needed for muscle spasm.^Disp: 12 tablet^Rfl: 0 predniSONE (DELTASONE) 10 mg tablet^Take 4 tabs daily x 3 days, then 3 tabs x 3 days, 2 tabs x 3 days, then 1 tab x3 days with food.^Disp: 30 tablet^Rfl: 0 HYDROcodone-acetaminophen (NORCO) 5-325 mg per tablet^Take 1 tablet by mouth every 6 hours as needed for up to 31 days.^Disp: 60 tablet^Rfl: 0 SUMAtriptan (IMITREX) 100 mg tablet^Take 1 tablet (100 mg) by mouth as needed.^Disp: 9 tablet^Rfl: 3 propranolol ER (INDERAL LA) 60 mg 24 hr capsule^Take 1 capsule by mouth once daily.^Disp: 30 capsule^Rfl: 11 escitalopram oxalate (LEXAPRO) 5 mg tablet^Take 1 tablet by mouth once daily. Take 1 tab a day for one week and then increase to 2 tabs a day^Disp: ^Rfl: famotidine (PEPCID) 20 mg tablet^Take 1 tablet by mouth twice daily.^Disp: 180 tablet^Rfl: 3 mometasone (ELOCON) 0.1 % cream^Apply 1 application to affected area once daily.^Disp: 45 g^Rfl: 0 SENNOSIDES 8.6 MG TAB^as needed for constipation^Disp: ^Rfl: 0 FAMILY HISTORY Problem Relation Age of Onset Lipids Mother Headache Mother Ischemic Heart Disease Maternal Grandmother Skin Cancer Maternal Grandmother 60 Ischemic Heart Disease Maternal Grandfather other (Melanoma [Other]) Maternal Grandfather 81 Hypertension Paternal Grandmother all grandparents Breast Cancer Paternal Grandmother 66 Breast Cancer Paternal Aunt 45 bilateral Colon Cancer Paternal Aunt 55 other (Kidney Cancer [Other]) Paternal Aunt 55 Breast Cancer Paternal Aunt 40s Breast Cancer Maternal Aunt 50s Social History Tobacco Use Smoking status: Never Smokeless tobacco: Never Vaping Use Vaping Use: Never used Substance Use Topics Alcohol use: No Drug use: No BP 139/101 Pulse 102 Temp 37.1 C (98.7 F) Resp 18 Wt 59.9 kg (132 lb) LMP 07/08/2023 (Exact Date) SpO2 100% BMI 21.31 kg/m Physical Exam Vitals reviewed. Constitutional: General: She is not in acute distress. Appearance: She is not ill-appearing. Comments: Appears uncomfortable HENT: Head: Normocephalic and atraumatic. Musculoskeletal: Left shoulder: Tenderness (scapula) present. No deformity. Normal range of motion (painful). Cervical back: Neck supple. No edema, erythema, rigidity, torticollis or crepitus. Pain with movement and muscular tenderness (left trapezius and paraspinal muscles) present. No spinous process tenderness. Decreased range of motion (secondary to pain). Neurological: Mental Status: She is alert. Sensory: Sensation is intact. Motor: Motor function is intact. Deep Tendon Reflexes: Reflexes are normal and symmetric. DATA REVIEWED: Most recent labs and imaging results. ASSESSMENT/PLAN: 1. Acute neck pain - ICD9: 723.1, ICD10: M54.2 (primary diagnosis) Differentials include muscle strain, radiculopathy, shoulder impingement.No alarm symptoms or exam findings. - XR CERV OTHER 4V AP/LAT/OBL - KETOROLAC 60 MG/2 ML INTRAMUSCULAR SOLUTION today - start treatment with prednisone burst with taper - Flexeril as needed - follow-up with PCP next week as scheduled or sooner if any worsening 2. Pain of left scapula - ICD9: 733.90, ICD10: M89.8X1 As above - XR CERV OTHER 4V AP/LAT/OBL - KETOROLAC 60 MG/2 ML INTRAMUSCULAR SOLUTION Prescription instructions reviewed with patient as applicable. Potential red flag symptoms discussed with the patient. Reviewed appropriate action plan to take if red flag symptoms occur. Patient agreeable to treatment plan. Rhea Ayala APRN.CNP documented in this encounter [facility] 07-25-2023 History of Present illness Narrative Radiology Service Progress Note PATIENT NAME: Anastasia Simpson DATE OF SERVICE: July 25, 2023 TIME: 8:45 AM PATIENT IDENTITY VERIFICATION COMPLETED USING TWO (2) IDENTIFIERS: Name and Date of confirmed by patient verbally. FALL SCREENING: Has the patient had 2 falls in the last year or 1 fall with injury or currently using an Ambulatory Assistive Device (Walker, Cane, Wheelchair, Crutches, etc.)? No PATIENT GENDER DATA: Female. status: : No status: NO. PATIENT RELEVANT IMPLANT DATA REVIEWED: Not Applicable RADIOLOGY DEPARTMENT: General X-ray: Exam(s) Completed: Spine X-Ray(s): Cervical AP / LAT / OBL PERIPHERAL IV DATA: Not applicable SIGNED BY: RT Rosalia(R) July 25, 2023 8:45 AM documented in this encounter [facility] 07-09-2023 History of Present illness Narrative TELESTROKE DOCUMENTATION Name: Anastasia Simpson : 1975 Referring Site: [facility] Referring Provider: Dr. Sal Last Known Well (Date/Time): 07/09/23 1430 Neurologist Callback (Date/Time): 07/09/23 1524 Chief Complaint: LUE heaviness HPI: 47 year old female,hx of migraines. LKW 1430. She then started to feel heaviness in her left arm associated with pain. NIHSS per ED is 0. Has good dexterity of her fingers but pt subjectively feels weak on LUE. CTH no acute process. CTA H/N no LVO. Pt not tnk candidate due to nondisabling symptoms. If symptoms persist can eval for stroke with MRI although pain in limb is atypical for stroke. NIHSS Telestroke Type - Patient location (ED or Inpatient): ED - Telephone Site Reported NIHSS: 0 Neurologist Performed Total Score: N/A Imaging CT Imaging reviewed, NO acute infarct/hemorrhage seen CTA Imaging reviewed, NO large vessel occlusion or severe stenosis seen Summary Suspected ACUTE ischemic stroke IV Thrombolysis Candidate Window: No - Patient arrived past 4.5 hour window OR Last Known Well Date/Time is unknown Potential Candidate for Endovascular Therapy: No - Negative for evidence of large vessel occlusion Disposition/Billing (Physician is not in the same physical location as the patient) The patient will remain at the referring institution for further evaluation and management This case was discussed with stroke staff who was immediately available for direct supervision when needed.(List staff name): Dr. Mixon Telephone Only: Minutes spent reviewing pertinent diagnostic data and discussing patient care with the referring physician: 10 More than 50 percent of the encounter was spent on coordinating care of the patient during a telestroke. Thank you for contacting the [facility]. I appreciate the opportunity for allowing me to participate in Anastasia Simpson's care. Please feel free to contact me and/or the [facility] at any time if you have any further questions or need additional assistance. Jenny Finn MD July 09, 2023 3:33 PM documented in this encounter [facility] 07-06-2023 Miscellaneous Notes CAROLEE 06/01/23 NOV 08/03/23 Please review and advise. Thank you. ALFONSO Murphy Patient has been identified by name and date of : Yes Requested Prescriptions Pending Prescriptions Disp Refills HYDROcodone-acetaminophen (NORCO) 5-325 mg per tablet 60 tablet 0 Sig: Take 1 tablet by mouth every 6 hours as needed for up to 31 days. RX INSTRUCTIONS: Patient aware RX will be sent to pharmacy. No need to nofity patient. Controlled medication - must be call in. Shauna Justin Pss documented in this encounter [facility] 06-01-2023 History of Present illness Narrative Patient presents with: Follow Up HPI: Patient presents today for office visit for follow up. Job is going well. Feeling relaxed. Emotionally is doing well. Chronic pain. Oarrs done. Feels meds are working. No hx of misuse or abuse. No changes. Still has good and bad days. Helps her to meet her daily ADL's Signed controlled substance agreement. Has done tox screen. 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 Discussed considering labs at some point. No chest pain or shortness of breath or edma. MEDICATIONS: Current Outpatient Medications Medication Sig HYDROcodone-acetaminophen (NORCO) 5-325 mg per tablet Take 1 tablet by mouth every 6 hours as needed for up to 31 days. SUMAtriptan (IMITREX) 100 mg tablet Take 1 tablet by mouth as needed. propranolol ER (INDERAL LA) 60 mg 24 hr capsule Take 1 capsule by mouth once daily. escitalopram oxalate (LEXAPRO) 5 mg tablet Take 1 tablet by mouth once daily. Take 1 tab a day for one week and then increase to 2 tabs a day famotidine (PEPCID) 20 mg tablet Take 1 tablet by mouth twice daily. mometasone (ELOCON) 0.1 % cream Apply 1 application to affected area once daily. SENNOSIDES 8.6 MG TAB as needed for constipation No current facility-administered medications for this visit. ALLERGIES: ALLERGIES Allergen Reactions Celestone [Betameth* Other: See Comments Cheeks and neck red and hot- felt like she had a fever in top 1/2 of body, other steroids have been ok Codeine GI UPSET, HEART RACES Neurontin [Gabapent* Other: See Comments Extreme dizziness Sulfa (Sulfonamide * UNKNOWN PAST MEDICAL HISTORY Diagnosis Date Basal cell carcinoma 2011, 2015 multiple sites High blood pressure Moderate major depression, single episode (HCC) 11/13/2020 PMH - PAST MEDICAL HISTORY OF irritable bowel syndrome PMH - PAST MEDICAL HISTORY OF back pain PMH - PAST MEDICAL HISTORY OF Injections L4-L5 by Dr Knox in [place] PAST SURGICAL HISTORY Procedure Laterality Date COLONOSCOPY FLX DX W/COLLJ SPEC WHEN PFRMD 02/28/2020 Colonoscopy-Dr Bryant ESOPHAGOGASTRODUODENOSCOPY TRANSORAL DIAGNOSTIC 02/28/2020 EGD-Dr Bryant LAPAROSCOPIC CHOLECYSTECTOMY 08/26/2018 Dr. Dashawn SAENZ TRUNK/ARM/LEG 1ST STAGE 5 BLOCKS multiple BCC PAST SURGICAL HISTORY OF 02/2003 x2 discectomy L4-5 S1 PAST SURGICAL HISTORY OF D&C PAST SURGICAL HISTORY OF 07/11/2004 L5-S1 anterior lumbar interbody fusion with posterior L5-S1 translaminar facet screw on left side and a facet joint screw on the right side, and this would be a 360-degree fusion PAST SURGICAL HISTORY OF 1999 lasix eye surgery PAST SURGICAL HISTORY OF 2003 wisdom teeth S THERMACHOICE UTERINE BALLOON 01/02/15 Hysteroscopy w/ endometrial ablation FAMILY HISTORY Problem Relation Age of Onset Lipids Mother Headache Mother Ischemic Heart Disease Maternal Grandmother Skin Cancer Maternal Grandmother 60 Ischemic Heart Disease Maternal Grandfather other (Melanoma [Other]) Maternal Grandfather 81 Hypertension Paternal Grandmother all grandparents Breast Cancer Paternal Grandmother 66 Breast Cancer Paternal Aunt 45 bilateral Colon Cancer Paternal Aunt 55 other (Kidney Cancer [Other]) Paternal Aunt 55 Breast Cancer Paternal Aunt 40s Breast Cancer Maternal Aunt 50s Social History Tobacco Use Smoking status: Never Smokeless tobacco: Never Vaping Use Vaping Use: Never used Substance Use Topics Alcohol use: No Drug use: No Reviewed current medications, allergies, past medical history, surgical history, family history and social history today. REVIEW OF SYSTEMS All other reviewed and negative other than HPI. HEALTH MAINTENANCE: Reviewed health maintenance issues today and recommended the following in detail. HEPATITIS C SCREENING Never done HIV SCREENING Never done BP CONTROLLED (<130/80) Never done COLORECTAL CANCER SCREENING -had colonoscopy [address] Bryant. DEPRESSION ASSESSMENT Never done MAMMOGRAM -recommended. INFLUENZA(1) due on 05/22/2023 PAP TESTING due on 07/23/2023 HPV TESTING due on 07/23/2023 VITALS: BP 112/78 Pulse 68 LMP 04/13/2023 (Exact Date) Last 4 Encounter Wt Readings: Date: Wt: 05/08/2023 57.5 kg (126 lb 12.8 oz) 03/25/2023 57.2 kg (126 lb) 10/14/2022 57.2 kg (126 lb) 05/19/2022 57.2 kg (126 lb) PHYSICAL EXAMINATION: General appearance: Well appearing, alert, in no acute distress, well-hydrated, well nourished. Skin: Skin color, texture, turgor normal, no suspicious rashes or lesions Head: Normocephalic, no masses, lesions, tenderness or abnormalities Lungs: Lungs clear to auscultation. No wheezing, rhonchi, rales Heart: RRR without murmur, gallop, or rubs. No ectopy Abdomen: Normal abdominal exam, Abdomen soft, non-tender. Bowel sounds normal. No masses, organomegaly Extremities: No deformities, edema, skin discoloration, clubbing or cyanosis. Good capillary refill. ASSESSMENT/PLAN: 1. Other migraine without status migrainosus, not intractable - ICD9: 346.80, ICD10: G43.809 (primary diagnosis) - stable. 2. Basal cell carcinoma (BCC), unspecified site - ICD9: 173.91, ICD10: C44.91 - per derm. 3. Postlaminectomy syndrome - ICD9: 722.80, ICD10: M96.1 - benefiting from med 4. Anxiety - ICD9: 300.00, ICD10: F41.9 - doing well. 5. History of colonic polyps - ICD9: V12.72, ICD10: Z86.010 -stable. Jacek Scruggs MD documented in this encounter [facility] 05-11-2023 Miscellaneous Notes CAROLEE 03/25/23 NOV 06/01/23 Patient has been identified by name and date of : Yes Requested Prescriptions Pending Prescriptions Disp Refills HYDROcodone-acetaminophen (NORCO) 5-325 mg per tablet 60 tablet 0 Sig: Take 1 tablet by mouth every 6 hours as needed for up to 31 days. RX INSTRUCTIONS: Patient aware RX will be sent to [facility] pharmacy. No need to notify patient. Angelique Marlow documented in this encounter [facility] 05-11-2023 Miscellaneous Notes Called and left a detailed voicemail notifying patient of providers message. Hospital phone number was left in case patient had any questions. Carolina Barr, MARTITA Urine is ok. documented in this encounter [facility] 04-09-2023 Miscellaneous Notes Patient has been identified by name and date of : Yes Requested Prescriptions Pending Prescriptions Disp Refills SUMAtriptan (IMITREX) 100 mg tablet 9 tablet 3 Sig: Take 1 tablet by mouth as needed. RX INSTRUCTIONS: Patient aware RX will be sent to pharmacy. No need to notify patient. Holly Kim MA Carolee 03/2023 Nov 05/2023 Last refill: 12/2022 Patient has been identified by name and date of : Yes Last office visit in this department: 03/25/2023 RX INSTRUCTIONS: Patient aware RX will be sent to pharmacy. No need to notify patient. Patient phones requesting refills as follows: Requested Prescriptions Pending Prescriptions Disp Refills SUMAtriptan (IMITREX) 100 mg tablet 9 tablet 3 Sig: Take 1 tablet by mouth as needed. Please review and advise. Arline Vicente Pss documented in this encounter [facility] 03-25-2023 History of Present illness Narrative Patient presents with: Follow Up HPI: Patient presents today for office visit for follow up. Has been out of Propranolol for a couple days. Ready at pharmacy just haven't picked it up yet. Dizziness with standing up. Thinks BP is dropping. Since her stress levels have dropped off her job she is wondering if her bp is low. Bp was really low last week when she had to leave and it was 90 systolic. Bp is higher and she is not dizzy whithout both bp meds. The propranolol is also for her headaches. No new neuro issues. No chest pain or shortness of breath. No edema. Continues on pain meds. Doing well. Tolerating meds. Aware of risks. Oarrs done. MEDICATIONS: Current Outpatient Medications Medication Sig HYDROcodone-acetaminophen (NORCO) 5-325 mg per tablet Take 1 tablet by mouth every 6 hours as needed for up to 31 days. propranolol ER (INDERAL LA) 60 mg 24 hr capsule Take 1 capsule by mouth once daily. escitalopram oxalate (LEXAPRO) 5 mg tablet Take 1 tablet by mouth once daily. Take 1 tab a day for one week and then increase to 2 tabs a day SUMAtriptan (IMITREX) 100 mg tablet Take 1 tablet by mouth as needed. famotidine (PEPCID) 20 mg tablet Take 1 tablet by mouth twice daily. losartan (COZAAR) 50 mg tablet Take 1 tablet by mouth once daily. mometasone (ELOCON) 0.1 % cream Apply 1 application to affected area once daily. SENNOSIDES 8.6 MG TAB as needed for constipation No current facility-administered medications for this visit. ALLERGIES: ALLERGIES Allergen Reactions Celestone [Betameth* Other: See Comments Cheeks and neck red and hot- felt like she had a fever in top 1/2 of body, other steroids have been ok Codeine GI UPSET, HEART RACES Neurontin [Gabapent* Other: See Comments Extreme dizziness Sulfa (Sulfonamide * UNKNOWN PAST MEDICAL HISTORY Diagnosis Date Basal cell carcinoma 2011, 2015 multiple sites High blood pressure Moderate major depression, single episode (HCC) 11/13/2020 PMH - PAST MEDICAL HISTORY OF irritable bowel syndrome PMH - PAST MEDICAL HISTORY OF back pain PMH - PAST MEDICAL HISTORY OF Injections L4-L5 by Dr Knox in [place] PAST SURGICAL HISTORY Procedure Laterality Date COLONOSCOPY FLX DX W/COLLJ SPEC WHEN PFRMD 02/28/2020 Colonoscopy-Dr Bryant ESOPHAGOGASTRODUODENOSCOPY TRANSORAL DIAGNOSTIC 02/28/2020 EGD-Dr Bryant LAPAROSCOPIC CHOLECYSTECTOMY 08/26/2018 Dr. Bryant MOHJanessa TRUNK/ARM/LEG 1ST STAGE 5 BLOCKS multiple BCC PAST SURGICAL HISTORY OF 02/2003 x2 discectomy L4-5 S1 PAST SURGICAL HISTORY OF D&C PAST SURGICAL HISTORY OF 07/11/2004 L5-S1 anterior lumbar interbody fusion with posterior L5-S1 translaminar facet screw on left side and a facet joint screw on the right side, and this would be a 360-degree fusion PAST SURGICAL HISTORY OF 1999 lasix eye surgery PAST SURGICAL HISTORY OF 2003 wisdom teeth S THERMACHOICE UTERINE BALLOON 01/02/15 Hysteroscopy w/ endometrial ablation FAMILY HISTORY Problem Relation Age of Onset Lipids Mother Headache Mother Ischemic Heart Disease Maternal Grandmother Skin Cancer Maternal Grandmother 60 Ischemic Heart Disease Maternal Grandfather other (Melanoma [Other]) Maternal Grandfather 81 Hypertension Paternal Grandmother all grandparents Breast Cancer Paternal Grandmother 66 Breast Cancer Paternal Aunt 45 bilateral Colon Cancer Paternal Aunt 55 other (Kidney Cancer [Other]) Paternal Aunt 55 Breast Cancer Paternal Aunt 40s Breast Cancer Maternal Aunt 50s Social History Tobacco Use Smoking status: Never Smokeless tobacco: Never Vaping Use Vaping Use: Never used Substance Use Topics Alcohol use: No Drug use: No Reviewed current medications, allergies, past medical history, surgical history, family history and social history today. REVIEW OF SYSTEMS All other reviewed and negative other than HPI. VITALS: Ht 167.6 cm (5' 6) Wt 57.2 kg (126 lb) LMP 10/26/2021 SpO2 98% BMI 20.34 kg/m BP w/Orthostatic Vitals Date and Time Orthostatic BP Orthostatic Pulse BP Pulse BP Position BP Site BP Cuff Size 03/25/23 1136 98/82 -- -- -- Standing -- -- 03/25/23 1131 98/72 98 -- -- Sitting -- -- Last 4 Encounter Wt Readings: Date: Wt: 03/25/2023 57.2 kg (126 lb) 10/14/2022 57.2 kg (126 lb) 05/19/2022 57.2 kg (126 lb) 03/03/2022 55.3 kg (122 lb) PHYSICAL EXAMINATION: General appearance: Well appearing, alert, in no acute distress, well-hydrated, well nourished. Skin: Skin color, texture, turgor normal, no suspicious rashes or lesions Head: Normocephalic, no masses, lesions, tenderness or abnormalities Lungs: Lungs clear to auscultation. No wheezing, rhonchi, rales Heart: RRR without murmur, gallop, or rubs. No ectopy Abdomen: Normal abdominal exam, Abdomen soft, non-tender. Bowel sounds normal. No masses, organomegaly Extremities: No deformities, edema, skin discoloration, clubbing or cyanosis. Good capillary refill. Musculoskeletal: No joint swelling, deformity, or tenderness ASSESSMENT/PLAN: 1. Postlaminectomy syndrome - ICD9: 722.80, ICD10: M96.1 (primary diagnosis) - tox screen when insurance starts. Continue meds. Call if any issues. 2. Other migraine without status migrainosus, not intractable - ICD9: 346.80, ICD10: G43.809 - stable. 3. Primary hypertension - ICD9: 401.9, ICD10: I10 - Improving control - stop losartan. Will call with bp in one month 4. Medication monitoring encounter - ICD9: V58.83, ICD10: Z51.81 - TOX SCREEN ROUT CALLIE Scruggs documented in this encounter [facility] 03-20-2023 History of Present illness Narrative Left before being seen, rescheduled. Rocco Pfeiffer PA-C documented in this encounter [facility] 03-18-2023 Miscellaneous Notes Patient has been identified by name and date of : Yes, Provider Dr. Scruggs Date 03/18/23 Time 8:46 am Patient phones for refill(s): Requested Prescriptions Pending Prescriptions Disp Refills HYDROcodone-acetaminophen (NORCO) 5-325 mg per tablet 60 tablet 0 Sig: Take 1 tablet by mouth every 6 hours as needed for up to 31 days. Date of last office visit in primary care: 01/12/23 next apt 03/20/23 Last 2 Encounter Wt Readings: Date: Wt: 10/14/2022 57.2 kg (126 lb) 05/19/2022 57.2 kg (126 lb) Previous labs/tests for medication: Not applicable Thank you. Ashley Contreras LPN documented in this encounter [facility] 02-18-2023 Miscellaneous Notes Patient calling to check the status of her refills. Patient would like to berry picker her medications today as she will be going out of town tomorrow. Please return call to patient when called in. Patient has been identified by name and date of : Yes Requested Prescriptions Pending Prescriptions Disp Refills propranolol ER (INDERAL LA) 60 mg 24 hr capsule 30 capsule 11 Sig: Take 1 capsule by mouth once daily. HYDROcodone-acetaminophen (NORCO) 5-325 mg per tablet 60 tablet 0 Sig: Take 1 tablet by mouth every 6 hours as needed for up to 31 days. RX INSTRUCTIONS: Patient aware RX will be sent to pharmacy. No need to notify patient. Dayami Cline documented in this encounter [facility] 01-29-2023 Discharge summary Note Date/Time January 29, 2023 11:23am [facility] [address] [place] [address] / REHABILITATION SERVICES DISCHARGE SUMMARY MR#: [id number] Acct: [id number] Name: ANASTASIA SIMPSON Rep #: [id number] : 1975 47 From: Kashif De DPT, OCS, CSCS Referring Dr.: Dr. Chele Villarreal, DO Status: REG RCR Insurance: [employer] SELF PAY INSURANCE ANASTASIA SIMPSON was seen in my office for initial evaluation on 11/17/22. The following Plan of Care was established for this patient: Initial Frequency: 2x /Week Initial Duration: 2 Months Patient/Client Instruction: Educate patient on: Condition, Plan of Care For the Purpose of:: To decrease pain, To decrease swelling/inflammation, To increase ROM, To improve nutrient delivery to tissue, To improve muscle performance and motor function, To increase tolerance to activity/condition/position, To improve ability of physical actions for home/community/work/leisure Therapeutic Exercise to Include: Strength training, Flexibilty training, PassiveROM, Active ROM For the Purpose of:: To decrease pain, To increase ROM, To improve nutrient delivery to tissue, To improve muscle performance and motor function, To increase tolerance to activity/condition/position, To improve ability of physical actions for home/community/work/leisure, To improve gait and locomotor functions Manual Therapy Techniques to Include: Passive ROM, Soft tissue mobilization For the Purpose of:: To decrease pain, To decrease swelling/inflammation, To increase ROM Cryotherapy (ice pack, ice massage): Yes Vasopneumatic device: Yes For the Purpose of:: To decrease pain, To decrease swelling/inflammation This patient was last seen in our office 12/01/22. Pertinent comments regardingtheir Physical therapy will appear below: Pt seen 3 visits of POC then no showed for her next visit and did not rescheduleany further visits. At this point, it has been nearly two months and I will discontinue due to nonattendance. At this point I will be discontinuing this patient from physical therapy. I would be happy to see this patient again in the future if found appropriate by the physician. Thank you! Kashif De, DPT, OCS, CSCS Balance/Gait/Functional tests - Balance/Special Test Scores Lower Extremity Functional Score: 11 <Electronically signed by Kashif De DPT, OCS, CSCS> 01/29/23 1123 CC: Dr. Chele Villarreal, DO; Dr. Jacek Scruggs MD ~ [facility] Signed [facility] Work Phone: [phone] 266-761704-24-2023 History of Present illness Narrative* Jacek Scruggs MD - 01/12/2023 5:51 PM EDT Patient presents with: Follow Up: 8 week follow up HPI: Patient presents today for office visit for follow up. Gait is off, causing some pain in hips. Her leg is doing better. Still slightly puffy. Is able to walk. Is off of crutches. Her hip and back are bothering her due to these issues. Meds help her to function Oarrs done. Has done controlled substance agreement. Has done tox screen in last year. Aware of issues. Bp is very good. No chest pain or shortness of breath No edema. No dizziness. Will follow her bp without it. Has resigned her job. Feels she is at a good place Was feeling burnt out. Her stress level is much better. Doing well. Discussed dropping to one a day. MEDICATIONS: Current Outpatient Medications Medication Sig SUMAtriptan (IMITREX) 100 mg tablet Take 1 tablet by mouth as needed. HYDROcodone-acetaminophen (NORCO) 5-325 mg per tablet Take 1 tablet by mouth every 6 hours as needed for up to 31 days. famotidine (PEPCID) 20 mg tablet Take 1 tablet by mouth twice daily. escitalopram oxalate (LEXAPRO) 5 mg tablet Take 1 tab a day for one week and then increase to 2 tabs a day (Patient taking differently: 10 mg once daily. Take 1 tab a day for one week and then increase to 2 tabs a day) losartan (COZAAR) 50 mg tablet Take 1 tablet by mouth once daily. mometasone (ELOCON) 0.1 % cream Apply 1 application to affected area once daily. propranolol ER (INDERAL LA) 60 mg 24 hr capsule Take 1 capsule by mouth once daily. COMPOUNDED PRESCRIPTION Mammogram: screening SENNOSIDES 8.6 MG TAB as needed for constipation No current facility-administered medications for this visit. ALLERGIES: ALLERGIES Allergen Reactions Celestone [Betameth* Other: See Comments Cheeks and neck red and hot- felt like she had a fever in top 1/2 of body, other steroids have beenok Codeine GI UPSET, HEART RACES Neurontin [Gabapent* Other: See Comments Extreme dizziness Sulfa (Sulfonamide * UNKNOWN PAST MEDICAL HISTORY Diagnosis Date Basal cell carcinoma 2011, 2015 multiple sites High blood pressure Moderate major depression, single episode (HCC) 11/13/2020 PMH - PAST MEDICAL HISTORY OF irritable bowel syndrome PMH - PAST MEDICAL HISTORY OF back pain PMH - PAST MEDICAL HISTORY OF Injections L4-L5 by Dr Knox in [place] PAST SURGICAL HISTORY Procedure Laterality Date COLONOSCOPY FLX DX W/COLLJ SPEC WHEN PFRMD 02/28/2020 Colonoscopy-Dr Bryant ESOPHAGOGASTRODUODENOSCOPY TRANSORAL DIAGNOSTIC 02/28/2020 EGD-Dr Bryant LAPAROSCOPIC CHOLECYSTECTOMY 08/26/2018 Dr. Bryant MOHS TRUNK/ARM/LEG 1ST STAGE 5 BLOCKS multiple BCC PAST SURGICAL HISTORY OF 02/2003 x2 discectomy L4-5 S1 PAST SURGICAL HISTORY OF D&C PAST SURGICAL HISTORY OF 07/11/2004 L5-S1 anterior lumbar interbody fusion with posterior L5-S1 translaminar facet screw on left side and a facet joint screw on the right side, and this would be a 360-degree fusion PAST SURGICAL HISTORY OF 1999 lasix eye surgery PAST SURGICAL HISTORY OF 2003 wisdom teeth S THERMACHOICE UTERINE BALLOON 01/02/15 Hysteroscopy w/ endometrial ablation FAMILY HISTORY Problem Relation Age of Onset Lipids Mother Headache Mother Ischemic Heart Disease Maternal Grandmother Skin Cancer Maternal Grandmother 60 Ischemic Heart Disease Maternal Grandfather other (Melanoma [Other]) Maternal Grandfather 81 Hypertension Paternal Grandmother all grandparents Breast Cancer Paternal Grandmother 66 Breast Cancer Paternal Aunt 45 bilateral Colon Cancer Paternal Aunt 55 other (Kidney Cancer [Other]) Paternal Aunt 55 Breast Cancer Paternal Aunt 40s Breast Cancer Maternal Aunt 50s Social History Tobacco Use Smoking status: Never Smokeless tobacco: Never Vaping Use Vaping Use: Never used Substance Use Topics Alcohol use: No Drug use: No Reviewed current medications, allergies, past medical history, surgical history, family history andsocial history today. REVIEW OF SYSTEMS All other reviewed and negative other than HPI. HEALTH MAINTENANCE: Reviewed health maintenance issues today and recommended the following in detail. HEPATITIS B(1 of 3 - 3-dose series) Never done COVID-19 VACCINE(1) Never done HEPATITIS C SCREENING Never done HIV SCREENING Never done BP CONTROLLED (<130/80) Never done DEPRESSION ASSESSMENT Never done MAMMOGRAM due on 10/18/2022 VITALS: BP 100/58 Pulse 83 Resp 16 LMP 10/26/2021 SpO2 97% Last 4 Encounter Wt Readings: Date: Wt: 10/14/2022 57.2 kg (126 lb) 05/19/2022 57.2 kg (126 lb) 03/03/2022 55.3 kg (122 lb) 01/01/2022 55.8 kg (123 lb) PHYSICAL EXAMINATION: General appearance: Well appearing, alert, in no acute distress, well-hydrated, well nourished. Skin: Skin color, texture, turgor normal, no suspicious rashes or lesions Head: Normocephalic, no masses, lesions, tenderness or abnormalities Lungs: Lungs clear to auscultation. No wheezing, rhonchi, rales Heart: RRR without murmur, gallop, or rubs. No ectopy Abdomen: Normal abdominal exam, Abdomen soft, non-tender. Bowel sounds normal. No masses, organomegaly Extremities: No deformities, edema, skin discoloration, clubbing or cyanosis. Good capillary refill. ASSESSMENT/PLAN: 1. Postlaminectomy syndrome - ICD9: 722.80, ICD10: M96.1 (primary diagnosis) - oarrs done. Continue meds. Benefiting from their use 2. GERD without esophagitis - ICD9: 530.81, ICD10: K21.9 - stable 3. Adjustment disorder with anxious mood - ICD9: 309.24, ICD10: F43.22 - back to 5 mg. Call if any issues. - ESCITALOPRAM 5 MG TABLET Jacek Scruggs MD documented in this encounterAsht[facility]04-10-2023 Miscellaneous Notes* Telephone Encounter - John Case RN - 12/29/2022 2:41 PM EDT Patient has been identified by name and date of : Yes, Provider Sheba Date 12-29-22 Time 2:42 pm Patient phones for refill(s): Requested Prescriptions Pending Prescriptions Disp Refills SUMAtriptan (IMITREX) 100 mg tablet 9 tablet 3 Sig: Take 1 tablet by mouth as needed. Date of last office visit with pcp: 11-13-22. Next appt: 01-12-23 Last 2 Encounter Wt Readings: Date: Wt: 10/14/2022 57.2 kg (126 lb) 05/19/2022 57.2 kg (126 lb) Previous labs/tests for medication: Blood Pressure: BUN (mg/dL) Date Value 02/07/2022 9 06/22/2020 15 Sodium (mmol/L) Date Value 02/07/2022 139 06/22/2020 137 Last 1 Encounter BP Readings: Date: BP: 11/13/2022 136/82 Blood Counts: WBC (k/uL) Date Value 02/07/2022 6.17 06/22/2020 4.32 RBC (m/uL) Date Value 02/07/2022 4.42 06/22/2020 4.61 Hematocrit (%) Date Value 02/07/2022 41.1 06/22/2020 42.4 Hemoglobin (g/dL) Date Value 02/07/2022 12.8 06/22/2020 13.6 Platelet Count (k/uL) Date Value 02/07/2022 208 06/22/2020 250 Liver Function: ALT (U/L) Date Value 02/07/2022 15 06/22/2020 8 AST (U/L) Date Value 02/07/2022 20 06/22/2020 11 Please advise. Thank you. John Case RN documented in this encounterAshtabula [facility] Hospital04-05-2023 Miscellaneous Notes* Telephone Encounter - Shauna Justin Pss - 2022 12:56 PM EDT Per patient and pharmacy [facility] does not have this medication in stock so she needs this to go the [facility] pharmacy. Patient has been identified by name and date of : Yes Requested Prescriptions Pending Prescriptions Disp Refills HYDROcodone-acetaminophen (NORCO) 5-325 mg per tablet 60 tablet 0 Sig: Take 1 tablet by mouth every 6 hours as needed for up to 31 days. RX INSTRUCTIONS: Patient aware RX will be sent to pharmacy. No need to nofity patient. Controlled medication - must be call in. Shauna Justin Pss documented in this encounterAshtabula [facility] Hospital04-05-2023 Miscellaneous Notes* Telephone Encounter - Shauna Shipman MA - 2022 8:33 AM EDT CAROLEE 11/13/22 NOV 01/12/23 Shauna Shipman MA * Telephone Encounter - Makenzie Webber Pss - 2022 8:29 AM EDT Patient has been identified by name and date of : Yes Requested Prescriptions Pending Prescriptions Disp Refills HYDROcodone-acetaminophen (NORCO) 5-325 mg per tablet 60 tablet 0 Sig: Take 1 tablet by mouth every 6 hours as needed for up to 31 days. RX INSTRUCTIONS: Patient aware RX will be sent to pharmacy. No need to notify patient. Makenzie Webber Pss documented in this encounterAshtabula [facility] Hospital03-17-2023 Miscellaneous Notes* Telephone Encounter - Nguyen Maravilla Pss - 12/05/2022 2:23 PM EDT Error. documented in this encounterAshtabula [facility] Hospital03-06-2023 Miscellaneous Notes* Telephone Encounter - Chris Bullard LPN - 11/24/2022 1:32 PM EST CAROLEE 11/13/22 NOV 01/12/23 * Telephone Encounter - Mary Wang Pss - 11/24/2022 10:17 AM EST Patient has been identified by name and date of : Yes Requested Prescriptions Pending Prescriptions Disp Refills HYDROcodone-acetaminophen (NORCO) 5-325 mg per tablet 60 tablet 0 Sig: Take 1 tablet by mouth every 6 hours as needed for up to 31 days. RX INSTRUCTIONS: Patient aware RX will be sent to pharmacy. No need to notify patient. Mary Wang Pss documented in this encounterAshtabula [facility] Hospital02-23-2023 History of Present illness Narrative* Jacek Scruggs MD - 11/13/2022 8:17 AM EST Patient presents with: Follow Up HPI: Patient presents today for office visit for follow up. Had a tibial fracture of right leg while skiing. Is in a brace. Seeing ortho at [place] [facility]. Did have to use some extra pain meds due to brake. At last visit, we increased lexapro, added losartan and increased pepcid. Is having issues dealing with using her crutches and being non weight bearing on the leg. Is frustrated by not being able to do her work issues. Bp looks much better. No chest pain of shortness of breath. No heartburn. See previous ov: Had some issues with pharmacy in refilling Lexapro. Only took for 1 month. Didn't notice much of a difference. Would continue to take though. Did not have any side effects. Had covid back in June-July. Overall feeling ok. Denies chest pain and shortness of breath Currently wearing 30-day heart monitor due to palpitations over the last 6 months. We tried to increase her inderal in the past and she did not tolerate it. Her bp is still up. Was up recently when she saw endo. Bp was up there as well. Had echo and is wearing a holter monitor. Dr. Conn has wondered if she could be having issues with her esophagus. Has been having more gas No black or bloody stools. Has had egd and colonoscopy in the last year. Is taking pepcid once a day. Is still having stress at work. Still continues on pain meds. Tolerating well. Has seen pain management. Helps her continue with her ADL's Benefiting from their use. MEDICATIONS: Current Outpatient Medications Medication Sig HYDROcodone-acetaminophen (NORCO) 5-325 mg per tablet Take 1 tablet by mouth every 6 hours as needed for up to 31 days. famotidine (PEPCID) 20 mg tablet Take 1 tablet by mouth twice daily. escitalopram oxalate (LEXAPRO) 5 mg tablet Take 1 tab a day for one week and then increase to 2 tabs a day (Patient taking differently: 10 mg once daily. Take 1 tab a day for one week and then increase to 2 tabs a day) losartan (COZAAR) 50 mg tablet Take 1 tablet by mouth once daily. SUMAtriptan (IMITREX) 100 mg tablet Take 1 tablet by mouth as needed. propranolol ER (INDERAL LA) 60 mg 24 hr capsule Take 1 capsule by mouth once daily. mometasone (ELOCON) 0.1 % cream Apply 1 application to affected area once daily. COMPOUNDED PRESCRIPTION Mammogram: screening SENNOSIDES 8.6 MG TAB as needed for constipation No current facility-administered medications for this visit. ALLERGIES: ALLERGIES Allergen Reactions Celestone [Betameth* Other: See Comments Cheeks and neck red and hot- felt like she had a fever in top 1/2 of body, other steroids have beenok Codeine GI UPSET, HEART RACES Neurontin [Gabapent* Other: See Comments Extreme dizziness Sulfa (Sulfonamide * UNKNOWN PAST MEDICAL HISTORY Diagnosis Date Basal cell carcinoma 2011, 2015 multiple sites High blood pressure Moderate major depression, single episode (HCC) 11/13/2020 PMH - PAST MEDICAL HISTORY OF irritable bowel syndrome PMH - PAST MEDICAL HISTORY OF back pain PMH - PAST MEDICAL HISTORY OF Injections L4-L5 by Dr Knox in [place] PAST SURGICAL HISTORY Procedure Laterality Date COLONOSCOPY FLX DX W/COLLJ SPEC WHEN PFRMD 02/28/2020 Colonoscopy-Dr Bryant ESOPHAGOGASTRODUODENOSCOPY TRANSORAL DIAGNOSTIC 02/28/2020 EGD-Dr Bryant LAPAROSCOPIC CHOLECYSTECTOMY 08/26/2018 Dr. Bryant MOHS TRUNK/ARM/LEG 1ST STAGE 5 BLOCKS multiple BCC PAST SURGICAL HISTORY OF 02/2003 x2 discectomy L4-5 S1 PAST SURGICAL HISTORY OF D&C PAST SURGICAL HISTORY OF 07/11/2004 L5-S1 anterior lumbar interbody fusion with posterior L5-S1 translaminar facet screw on left side and a facet joint screw on the right side, and this would be a 360-degree fusion PAST SURGICAL HISTORY OF 1999 lasix eye surgery PAST SURGICAL HISTORY OF 2003 wisdom teeth S THERMACHOICE UTERINE BALLOON 01/02/15 Hysteroscopy w/ endometrial ablation FAMILY HISTORY Problem Relation Age of Onset Lipids Mother Headache Mother Ischemic Heart Disease Maternal Grandmother Skin Cancer Maternal Grandmother 60 Ischemic Heart Disease Maternal Grandfather other (Melanoma [Other]) Maternal Grandfather 81 Hypertension Paternal Grandmother all grandparents Breast Cancer Paternal Grandmother 66 Breast Cancer Paternal Aunt 45 bilateral Colon Cancer Paternal Aunt 55 other (Kidney Cancer [Other]) Paternal Aunt 55 Breast Cancer Paternal Aunt 40s Breast Cancer Maternal Aunt 50s Social History Tobacco Use Smoking status: Never Smokeless tobacco: Never Vaping Use Vaping Use: Never used Substance Use Topics Alcohol use: No Drug use: No Reviewed current medications, allergies, past medical history, surgical history, family history andsocial history today. REVIEW OF SYSTEMS All other reviewed and negative other than HPI. VITALS: BP 136/82 Pulse 80 LMP 10/26/2021 Last 4 Encounter Wt Readings: Date: Wt: 10/14/2022 57.2 kg (126 lb) 05/19/2022 57.2 kg (126 lb) 03/03/2022 55.3 kg (122 lb) 01/01/2022 55.8 kg (123 lb) PHYSICAL EXAMINATION: General appearance: Well appearing, alert, in no acute distress, well-hydrated, well nourished. Skin: Skin color, texture, turgor normal, no suspicious rashes or lesions Head: Normocephalic, no masses, lesions, tenderness or abnormalities Lungs: Lungs clear to auscultation. No wheezing, rhonchi, rales Heart: RRR without murmur, gallop, or rubs. No ectopy Abdomen: Normal abdominal exam, Abdomen soft, non-tender. Bowel sounds normal. No masses, organomegaly Extremities: No deformities, edema, skin discoloration, clubbing or cyanosis. Good capillary refill. ASSESSMENT/PLAN: 1. Anxiety - ICD9: 300.00, ICD10: F41.9 (primary diagnosis) - continue meds. 2. Postlaminectomy syndrome - ICD9: 722.80, ICD10: M96.1 - continue meds. Call if any issues. 3. Other migraine without status migrainosus, not intractable - ICD9: 346.80, ICD10: G43.809 - stable. 4. Primary hypertension - ICD9: 401.9, ICD10: I10 - good control - Goal of BP <130/80 5. GERD without esophagitis - ICD9: 530.81, ICD10: K21.9 - call if any issues. Jacek Scruggs MD documented in this encounterAshtabula [facility]02-07-2023 Miscellaneous Notes* Telephone Encounter - Shelli Mckeon Ma - 10/28/2022 9:56 AM EST Last office visit: 10/14/22 F/u scheduled: none Last refilled on: [place] #[id number] on 05/03/22 Shelli Mckeon Ma * Telephone Encounter - Karly Rangel - 10/28/2022 9:53 AM EST Patient has been identified by name and date of : Yes Requested Prescriptions Pending Prescriptions Disp Refills HYDROcodone-acetaminophen (NORCO) 5-325 mg per tablet 60 tablet 0 Sig: Take 1 tablet by mouth every 6 hours as needed for up to 31 days. RX INSTRUCTIONS: Patient aware RX will be sent to pharmacy. No need to notify patient. Karly Contreras Pss documented in this encounterAshtabula [facility] Hospital02-05-[address] Goldberg [facility] October 26, 2022 4:33pm Note Date/Time October 26, 2022 3 :43pm [facility] Medical Records Department [address] [place] [address] Emergency Department Summary 10/26/22 MR#: [id number] Acct: [id number] Name: ANASTASIA SIMPSON Rep #:[id number] : 1975 46 From: Kirit Goldberg MD PCP: Dr. Jacek Scruggs MD Status:REG E R Location: ED HPI History of Present Illness Chief Complaint: Lower Extremity Injury Informant: patient Occured/Mechanism Comment: skiing, see below Onset/Context/Timing Onset: Yesterday Context: Sudden Onset Timing: Continuous Quality of Pain: Aching Location: R knee and down into ankle area Current Severity: Moderate Maximum Severity: Severe Worsened by: bending, walking/WBing Relieved by: rest, ice Associated Symptoms Associated Symptoms: Negative for Parasthesia or Weakness Narrative Narrative: Patient was skiing in [place] yesterday, she states she had a minor fall as a result of her skis crossing in her right ski was forcibly rotated before her foot came out of it and forced internal rotation, as the patient is describing it to me. She felt a pop and immediate pain in the right knee and ankle area and has been having difficulty ever since. [facility] Medical History Acute cholecystitis Age-related facial wrinkles Back problem Brow ptosis, bilateral Contusion of left knee Contusion of right knee Diarrhea Epigastric pain Forehead wrinkles Glabellar wrinkles History of blood transfusion Hypertension Lumbar radiculopathy Lumbar strain Migraines Skin cancer Strain of right hip Strain of right knee UTI (urinary tract infection) Home Medications sumatriptan succinate 50 mg tablet (Imitrex) 50 mg PO .PRN 04/19/19 [History Last Taken Unknown] propranolol 60 mg tablet 60 mg PO HS 02/23/20 [History Last Taken Unknown] escitalopram oxalate 5 mg tablet 5 mg PO DAILY 09/24/22 [History Last Taken Unknown] meloxicam 15 mg tablet 15 mg PO DAILY #14 tabs 10/26/22 [Rx Last Taken Unknown] Allergy/AdvReac Type Severity Reaction Status Date / Time codeine Allergy Other Verified 10/26/22 15:19 Sulfa (Sulfonamide Allergy Other Verified 10/26/22 15:19 Antibiotics) Family History Other Arthritis Breast cancer Diabetes Heart disease High cholesterol Hypertension Surgical History History of laparoscopic cholecystectomy (~08/2018) Previous back surgery S/P Botox injection Social History Smoking Status: Never smoker alcohol intake: never substance use type: does not use additional social history: DOES NOT USE ASPIRIN DOES USE IBUPROFEN NEEDED ROS ROS ED Constitutional Constitutional ED: Denies chills or fever(s) Musculoskeletal Musculoskeletal: Reports extremity pain; Denies neck pain Integumentary Denies Abrasions, rash or wounds Neurologic Neurologic: Denies paresthesias or weakness EXAM Physical Exam Const Vital Signs: 10/26/22 15:19 Temperature 97.2 F L Temperature Source Temporal Pulse Rate 77 Respiratory Rate 16 Blood Pressure 136/97 H Blood Pressure Mean 110 Pulse Ox 99 Oxygen Delivery Method Room Air Positive well nourished and well developed General Appearance ED: well developed and NAD Neck full ROM and supple Back/Spine normal ROM and normal to inspection Extremity Extremity Narrative: Right knee effusion with associated mild anterior soft tissue tenderness. No bony tenderness. Very limited range of motion. Extensor mechanism is intact but she is not able to fully extend due to pain. She can flex about 20 degrees. There is pain with stressing the MCL but no significant laxity. She also has pain with posterior drawer but this is very limited since she is having trouble flexing. On attempting to perform anterior and posterior drawer signs/Douglas, she does not have any laxity in the joint seems stable. There is no excessive warmth and no erythema. With regard to the right ankle she has painless full range of motion, there is no bony tenderness throughout the right ankle or foot and no swelling to suggestan injury. Neurovascularly intact distally. Also can range her right hip without any pain in the groin. Neuro oriented x3, no focal motor deficits and no sensory deficits noted Sensorium / Orientation: alert Psych mental status grossly normal and thought process normal Skin no wounds Rashes: no rashes MDM MDM MDM Narrative Medical decision making narrative: 4 view x-ray series of the right knee were obtained, they are negative for any acute bony abnormality on my interpretation including fractures or dislocation. She does have an effusion. Radiology in agreement with this interpretation. High suspicion for an internal knee derangement of some sort here but her joint is stable and she does not require knee immobilizer right now. We will place her on anti- inflammatories, she is given an Gerard wrap and crutches here, and needs to follow-up with orthopedics in about a week. She is comfortable with that plan. Radiography Diagnostic Testing: Clinical Impression(s) from Imaging Studies Knee X-Ray 10/26/22 16:05 IMPRESSION: Suprapatellar joint effusion. There are no osseous abnormalities. Electronically Signed: Roque Pollard MD at 16:16 EST , Discharge Plan Triage Chief Complaint: Lower Extremity Injury ED Provider: Kirit Goldberg Dx/Rx/DC Orders Clinical Impression: Injury of knee, right Instructions: Reducing Knee Pain and Swelling Prescriptions: New meloxicam 15 mg tablet 15 mg PO DAILY Qty: 14 0RF No Action sumatriptan succinate [Imitrex] 50 mg tablet 50 mg PO .PRN propranolol 60 mg tablet 60 mg PO HS escitalopram oxalate 5 mg tablet 5 mg PO DAILY Label Comments: TAKE 1 TABLET BY MOUTH EVERY DAY Primary Care Provider: Jacek Scruggs Referrals: Tyler López DO [Med Staff - Active Staff] - (5-10 days -- call for appt) Jacek Scruggs MD [Primary Care Provider] - Disposition Disposition: Home, Self Care What to do if you have Problems For any increased pain, shortness of breath, bleeding, nausea or vomiting, chestpain, or any unexpected problems, contact your Primary Care Provider. Call [facility] ([phone]) or report to the closest Emergency Room. Call 911 if necessary. 10/26/22 1633 <Electronically signed by Kirit Goldberg MD> Cosigner Signature (if applicable): CC: Dr. Tyler López, DO; Dr. Jacek Scruggs MD ~ Signed [facility] Work Phone: [phone] 764-721101-24-2023 History of Present illness Narrative* Jacek Scruggs MD - 10/14/2022 4:33 PM EST Patient presents with: Follow Up HPI: Patient presents today for office visit for follow up. Had some issues with pharmacy in refilling Lexapro. Only took for 1 month. Didn't notice much of a difference. Would continue to take though. Did not have any side effects. Had covid back in June-July. Overall feeling ok. Denies chest pain and shortness of breath Currently wearing 30-day heart monitor due to palpitations over the last 6 months. We tried to increase her inderal in the past and she did not tolerate it. Her bp is still up. Was up recently when she saw endo. Bp was up there as well. Had echo and is wearing a holter monitor. Dr. Conn has wondered if she could be having issues with her esophagus. Has been having more gas No black or bloody stools. Has had egd and colonoscopy in the last year. Is taking pepcid once a day. Is still having stress at work. Still continues on pain meds. Tolerating well. Has seen pain management. Helps her continue with her ADL's Benefiting from their use. MEDICATIONS: Current Outpatient Medications Medication Sig HYDROcodone-acetaminophen (NORCO) 5-325 mg per tablet Take 1 tablet by mouth every 6 hours as needed for up to 31 days. SUMAtriptan (IMITREX) 100 mg tablet Take 1 tablet by mouth as needed. ondansetron orally disintegrating (ZOFRAN ODT) 4 mg disintegrating tablet Take 1 tablet by mouth every 6 hours as needed for nausea/vomiting. famotidine (PEPCID) 20 mg tablet Take 1 tablet by mouth once daily. escitalopram oxalate (LEXAPRO) 5 mg tablet Take 1 tablet by mouth once daily. mometasone (ELOCON) 0.1 % cream Apply 1 application to affected area once daily. propranolol ER (INDERAL LA) 60 mg 24 hr capsule Take 1 capsule by mouth once daily. ondansetron orally disintegrating (ZOFRAN ODT) 4 mg disintegrating tablet Take 1 tablet by mouth every 6 hours as needed for nausea/vomiting. COMPOUNDED PRESCRIPTION Mammogram: screening SENNOSIDES 8.6 MG TAB as needed for constipation HYDROcodone-acetaminophen (NORCO) 5-325 mg per tablet Take 1 tablet by mouth every 6 hours as needed for up to 31 days. Do not start before May 03, 2022. HYDROcodone-acetaminophen (NORCO) 5-325 mg per tablet Take 1 tablet by mouth every 6 hours as needed for up to 31 days. No current facility-administered medications for this visit. ALLERGIES: ALLERGIES Allergen Reactions Celestone [Betameth* Other: See Comments Cheeks and neck red and hot- felt like she had a fever in top 1/2 of body, other steroids have beenok Codeine GI UPSET, HEART RACES Neurontin [Gabapent* Other: See Comments Extreme dizziness Sulfa (Sulfonamide * UNKNOWN PAST MEDICAL HISTORY Diagnosis Date Basal cell carcinoma 2011, 2015 multiple sites High blood pressure Moderate major depression, single episode (HCC) 11/13/2020 PMH - PAST MEDICAL HISTORY OF irritable bowel syndrome PMH - PAST MEDICAL HISTORY OF back pain PMH - PAST MEDICAL HISTORY OF Injections L4-L5 by Dr Knox in [place] PAST SURGICAL HISTORY Procedure Laterality Date COLONOSCOPY FLX DX W/COLLJ SPEC WHEN PFRMD 02/28/2020 Colonoscopy-Dr Bryant ESOPHAGOGASTRODUODENOSCOPY TRANSORAL DIAGNOSTIC 02/28/2020 EGD-Dr Bryant LAPAROSCOPIC CHOLECYSTECTOMY 08/26/2018 Dr. Bryant MOHS TRUNK/ARM/LEG 1ST STAGE 5 BLOCKS multiple BCC PAST SURGICAL HISTORY OF 02/2003 x2 discectomy L4-5 S1 PAST SURGICAL HISTORY OF D&C PAST SURGICAL HISTORY OF 07/11/2004 L5-S1 anterior lumbar interbody fusion with posterior L5-S1 translaminar facet screw on left side and a facet joint screw on the right side, and this would be a 360-degree fusion PAST SURGICAL HISTORY OF 1999 lasix eye surgery PAST SURGICAL HISTORY OF 2003 wisdom teeth S THERMACHOICE UTERINE BALLOON 01/02/15 Hysteroscopy w/ endometrial ablation FAMILY HISTORY Problem Relation Age of Onset Lipids Mother Headache Mother Ischemic Heart Disease Maternal Grandmother Skin Cancer Maternal Grandmother 60 Ischemic Heart Disease Maternal Grandfather other (Melanoma [Other]) Maternal Grandfather 81 Hypertension Paternal Grandmother all grandparents Breast Cancer Paternal Grandmother 66 Breast Cancer Paternal Aunt 45 bilateral Colon Cancer Paternal Aunt 55 other (Kidney Cancer [Other]) Paternal Aunt 55 Breast Cancer Paternal Aunt 40s Breast Cancer Maternal Aunt 50s Social History Tobacco Use Smoking status: Never Smokeless tobacco: Never Vaping Use Vaping Use: Never used Substance Use Topics Alcohol use: No Drug use: No Reviewed current medications, allergies, past medical history, surgical history, family history andsocial history today. REVIEW OF SYSTEMS All other reviewed and negative other than HPI. HEALTH MAINTENANCE: Reviewed health maintenance issues today and recommended the following in detail. MAMMOGRAM due on 10/18/2022 VITALS: BP 134/100 Pulse 79 Ht 167.6 cm (5' 6) Wt 57.2 kg (126 lb) LMP 10/26/2021 SpO2 98% BMI20.34 kg/m Last 4 Encounter Wt Readings: Date: Wt: 05/19/2022 57.2 kg (126 lb) 03/03/2022 55.3 kg (122 lb) 01/01/2022 55.8 kg (123 lb) 11/06/2021 55.7 kg (122 lb 12.8 oz) PHYSICAL EXAMINATION: General appearance: Well appearing, alert, in no acute distress, well-hydrated, well nourished. Skin: Skin color, texture, turgor normal, no suspicious rashes or lesions Head: Normocephalic, no masses, lesions, tenderness or abnormalities Lungs: Lungs clear to auscultation. No wheezing, rhonchi, rales Heart: RRR without murmur, gallop, or rubs. No ectopy Abdomen: Normal abdominal exam, Abdomen soft, non-tender. Bowel sounds normal. No masses, organomegaly Extremities: No deformities, edema, skin discoloration, clubbing or cyanosis. Good capillary refill. ASSESSMENT/PLAN: 1. Other migraine without status migrainosus, not intractable - ICD9: 346.80, ICD10: G43.809 (primary diagnosis) - continue to follow 2. GERD without esophagitis - ICD9: 530.81, ICD10: K21.9 - increase pepcid to bid. - FAMOTIDINE 20 MG TABLET 3. Adjustment disorder with anxious mood - ICD9: 309.24, ICD10: F43.22 - titrate lexapro up to 10 mg a day. - discussed making sure she is taking time for herself. - ESCITALOPRAM 5 MG TABLET 4. Postlaminectomy syndrome - ICD9: 722.80, ICD10: M96.1 - continue meds prn 5. Primary hypertension - ICD9: 401.9, ICD10: I10 - suboptimal control - Add losartan(Cozaar) - Discussed risks and benefits of new medication with the patient. Advised them to call if any sideeffects or questions. - Goal of BP <130/80 - LOSARTAN 50 MG TABLET 6. Screening breast examination - ICD9: V76.10, ICD10: Z12.39 - SKY SCREENING W NICOLA Scruggs MD RTO in four weeks or prn documented in this encounterAshtabula [facility] Hospital01-09-2023 Miscellaneous Notes* Telephone Encounter - Chris Bullard LPN - 09/29/2022 11:48 AM EST CAROLEE 07/04/22 NOV 10/14/22 Last rx written 08/29/22 #60 with 0 refills * Telephone Encounter - Mary Wang Pss - 09/29/2022 8:14 AM EST Patient has been identified by name and date of : Yes Requested Prescriptions Pending Prescriptions Disp Refills HYDROcodone-acetaminophen (NORCO) 5-325 mg per tablet 60 tablet 0 Sig: Take 1 tablet by mouth every 6 hours as needed for up to 31 days. RX INSTRUCTIONS: Patient is out today. Patient aware RX will be sent to pharmacy. No need to notify patient. Mary Rangel documented in this encounterAsht[facility]11-11-2022 Miscellaneous Notes* Telephone Encounter - Ashley Contreras LPN - 08/01/2022 9:06 AM EST Patient has been identified by name and date of : Yes Patient phones for refill(s): Requested Prescriptions Pending Prescriptions Disp Refills HYDROcodone-acetaminophen (NORCO) 5-325 mg per tablet 60 tablet 0 Sig: Take 1 tablet by mouth every 6 hours as needed for up to 31 days. Date of last office visit in primary care: 07/04/22 Last 2 Encounter Wt Readings: Date: Wt: 05/19/2022 57.2 kg (126 lb) 03/03/2022 55.3 kg (122 lb) Previous labs/tests for medication: Not applicable Thank you. Ashley Contreras LPN documented in this encounterAshtabula [facility]11-07-2022 Miscellaneous Notes* Telephone Encounter - Magdalena Hopper Ma - 07/28/2022 12:59 PM EST Patient notified of provider message. [facility] call [facility] * Telephone Encounter - Jacek Scruggs MD - 07/28/2022 11:32 AM EST I don't think she qualifies for paxlovid. I would rest, fluids. I can try something for nausea, check if she would like that. Call if any worsening shortness of breath. * Telephone Encounter - Skye Garcia LPN - 07/28/2022 11:17 AM EST Pt calls to cancel appt for this evening stating she tested positive for Covid yesterday. Pt reports sx started 07/25. Pt reports she has been having a lot of N/V and muscle back pain. Pt asks if there is anything dr could recommend that could help her with this. Please review and advise. Skye Garcia LPN documented in this encounterAshtabula [facility]10-14-2022 History of Present illness Narrative* Jaeck Scruggs MD - 07/04/2022 3:12 PM EDT Patient presents with: Pain: 2 mo f/u for [place] RF HPI: Patient presents today for office visit for 2 month follow up. Having a lot of stress Functioning as best she can. Not sleeping well. Discussed tx options. Oarrs done. Pain is stable. Meds help her to function. Has signed agreement. Has seen pain management. Aware of risks and benefits. No hx of misuse Had some pain she had seen Rocco for. Is slightly worse with her nerve pain. MEDICATIONS: Current Outpatient Medications Medication Sig HYDROcodone-acetaminophen (NORCO) 5-325 mg per tablet Take 1 tablet by mouth every 6 hours as needed for up to 31 days. SUMAtriptan (IMITREX) 100 mg tablet Take 1 tablet by mouth as needed. mometasone (ELOCON) 0.1 % cream Apply 1 application to affected area once daily. famotidine (PEPCID) 20 mg tablet Take 1 tablet by mouth at bedtime as needed. HYDROcodone-acetaminophen (NORCO) 5-325 mg per tablet Take 1 tablet by mouth every 6 hours as needed for up to 31 days. propranolol ER (INDERAL LA) 60 mg 24 hr capsule Take 1 capsule by mouth once daily. ondansetron orally disintegrating (ZOFRAN ODT) 4 mg disintegrating tablet Take 1 tablet by mouth every 6 hours as needed for nausea/vomiting. COMPOUNDED PRESCRIPTION Mammogram: screening SENNOSIDES 8.6 MG TAB as needed for constipation HYDROcodone-acetaminophen (NORCO) 5-325 mg per tablet Take 1 tablet by mouth every 6 hours as needed for up to 31 days. Do not start before May 03, 2022. No current facility-administered medications for this visit. ALLERGIES: ALLERGIES Allergen Reactions Celestone [Betameth* Other: See Comments Cheeks and neck red and hot- felt like she had a fever in top 1/2 of body, other steroids have beenok Codeine GI UPSET, HEART RACES Neurontin [Gabapent* Other: See Comments Extreme dizziness Sulfa (Sulfonamide * UNKNOWN PAST MEDICAL HISTORY Diagnosis Date Basal cell carcinoma 2011, 2016 multiple sites High blood pressure Moderate major depression, single episode (HCC) 11/13/2020 PMH - PAST MEDICAL HISTORY OF irritable bowel syndrome PMH - PAST MEDICAL HISTORY OF back pain PMH - PAST MEDICAL HISTORY OF Injections L4-L5 by Dr Knox in [place] PAST SURGICAL HISTORY Procedure Laterality Date COLONOSCOPY FLX DX W/COLLJ SPEC WHEN PFRMD 02/28/2020 Colonoscopy-Dr Bryant ESOPHAGOGASTRODUODENOSCOPY TRANSORAL DIAGNOSTIC 02/28/2020 EGD-Dr Bryant LAPAROSCOPIC CHOLECYSTECTOMY 08/26/2018 Dr. Bryant MOHS TRUNK/ARM/LEG 1ST STAGE 5 BLOCKS multiple BCC PAST SURGICAL HISTORY OF 02/2003 x2 discectomy L4-5 S1 PAST SURGICAL HISTORY OF D&C PAST SURGICAL HISTORY OF 07/11/2004 L5-S1 anterior lumbar interbody fusion with posterior L5-S1 translaminar facet screw on left side and a facet joint screw on the right side, and this would be a 360-degree fusion PAST SURGICAL HISTORY OF 1999 lasix eye surgery PAST SURGICAL HISTORY OF 2003 wisdom teeth S THERMACHOICE UTERINE BALLOON 01/02/15 Hysteroscopy w/ endometrial ablation FAMILY HISTORY Problem Relation Age of Onset Lipids Mother Headache Mother Ischemic Heart Disease Maternal Grandmother Skin Cancer Maternal Grandmother 60 Ischemic Heart Disease Maternal Grandfather other (Melanoma [Other]) Maternal Grandfather 81 Hypertension Paternal Grandmother all grandparents Breast Cancer Paternal Grandmother 66 Breast Cancer Paternal Aunt 45 bilateral Colon Cancer Paternal Aunt 55 other (Kidney Cancer [Other]) Paternal Aunt 55 Breast Cancer Paternal Aunt 40s Breast Cancer Maternal Aunt 50s Social History Tobacco Use Smoking status: Never Smokeless tobacco: Never Vaping Use Vaping Use: Never used Substance Use Topics Alcohol use: No Drug use: No Reviewed current medications, allergies, past medical history, surgical history, family history andsocial history today. REVIEW OF SYSTEMS All other reviewed and negative other than HPI. VITALS: BP 110/80 Pulse 96 LMP 10/26/2021 SpO2 98% Last 4 Encounter Wt Readings: Date: Wt: 05/19/2022 57.2 kg (126 lb) 03/03/2022 55.3 kg (122 lb) 01/01/2022 55.8 kg (123 lb) 11/06/2021 55.7 kg (122 lb 12.8 oz) PHYSICAL EXAMINATION: General appearance: Well appearing, alert, in no acute distress, well-hydrated, well nourished. Skin: Skin color, texture, turgor normal, no suspicious rashes or lesions Head: Normocephalic, no masses, lesions, tenderness or abnormalities Eyes: Anicteric sclera. Pupils are equally round and reactive to light. Extraocular movements are intact. Lungs: Lungs clear to auscultation. No wheezing, rhonchi, rales Heart: RRR without murmur, gallop, or rubs. No ectopy Abdomen: Normal abdominal exam, Abdomen soft, non-tender. Bowel sounds normal. No masses, organomegaly Extremities: No deformities, edema, skin discoloration, clubbing or cyanosis. Good capillary refill. ASSESSMENT/PLAN: 1. Adjustment disorder with anxious mood - ICD9: 309.24, ICD10: F43.22 (primary diagnosis) - Discussed risks and benefits of new medication with the patient. Advised them to call if any sideeffects or questions. - call if any issues. - ESCITALOPRAM 5 MG TABLET 2. GERD without esophagitis - ICD9: 530.81, ICD10: K21.9 - FAMOTIDINE 20 MG TABLET 3. Postlaminectomy syndrome - ICD9: 722.80, ICD10: M96.1 - call if any issues. 4. Other migraine without status migrainosus, not intractable - ICD9: 346.80, ICD10: G43.809 - stable. Jacek Scruggs RTO in four weeks and prn. documented in this encounterAshtabula [facility]10-11-2022 Miscellaneous Notes* Telephone Encounter - Renuka Hernandez RN - 07/01/2022 12:49 PM EDT Last Office Visit: 05/19/2022 Future Office Visit: 07/04/2022 Last Medication Refill: [place] 06/02/2022 60 tab 0 refill Date of Last Labs: 02/07/2022 documented in this encounterAshtabula [facility]09-16-2022 Miscellaneous Notes* Telephone Encounter - Chris Bullard LPN - 06/06/2022 11:06 AM EDT TC to pt, left message to return call to office. Chris Bullard LPN * Telephone Encounter - Carolina Barr RN - 06/02/2022 1:20 PM EDT Called and left a voicemail for the Patient to call back and ask for a nurse to receive the providers message. Carolina Barr RN * Telephone Encounter - Jacek Scruggs MD - 06/02/2022 10:40 AM EDT See below. They would only cover a nonopiod meds basically unless it prescribed by pain management. She may have to pay out of pocket and do a referral to pain management to start prescribing. * Telephone Encounter - Mary Wang Pss - 06/02/2022 8:19 AM EDT Patient stated she called her insurance and was transferred all over; she is frustrated so she justpaid 32.09 out of pocket. She stated the insurance told her they could not tell her what is covered; this makes no sense. Can the office check on this and call her back? * Telephone Encounter - Carolina Turcios LPN - 05/29/2022 9:04 AM EDT I know we are awaiting for pt to return call, however the denial received in the office said rx is covered if Drug is prescribed by a neurologist or touch up painter hand Pt is on one of following to prevent headaches (an antidepressant, an anticonvulsant, a beta rhea or an angiotensin receptor rhea The higher dose or amount is supported by the [facility] or [facility] System Wandy Turcios LPN * Telephone Encounter - Kimmy Willis LPN - 05/28/2022 2:05 PM EDT Pt states she has had no change in insurance. Pt will call her ins to ask what would be covered & will call back with that information. Kimmy Willis LPN * Telephone Encounter - Danitza Mendez LPN - 05/28/2022 1:52 PM EDT Left message for patient. Did her insurance change? They are no longer covering her imitrex. When prior authorization completed they gave us no alternatives. Can she check formulary to see what is covered? * Telephone Encounter - Jacek Scruggs MD - 05/28/2022 12:35 PM EDT Are we able to check with pharmacy if something similar would be covered. * Telephone Encounter - Rachele Santana LPN - 05/28/2022 11:39 AM EDT Rec'd denial. DECISION: DENIED You do not meet the clinical requirements for this medication. REASON: This decision is based on your plan's drug coverage policy for this medication. Please see the DECISION NOTES AND DETAILS section for more information. DRUG NAME: Sumatriptan Tab 100mg Anastasia Simpson PATIENT INFO: Celled the pharmacy and this is 158.99$ if paying jernigan. Pt has not picked this up at this time. The PA question were completed. There are appeal insurance if you want this done. It appears pt hasbene taking this dose since 2014. Not sure if she has had a change in insurance prompting this denial. * Telephone Encounter - Carolina Turcios LPN - 05/23/2022 12:01 PM EDT Tammy LOW submitted for Sumatriptan. Awaiting response. Wandy Turcios LPN documented in this encounterAshtabula [facility]09-12-2022 Miscellaneous Notes* Telephone Encounter - Holly Kim MA - 06/02/2022 8:42 AM EDT Patient has been identified by name and date of : Yes Requested Prescriptions Pending Prescriptions Disp Refills HYDROcodone-acetaminophen (NORCO) 5-325 mg per tablet 60 tablet 0 Sig: Take 1 tablet by mouth every 6 hours as needed for up to 31 days. HYDROcodone-acetaminophen (NORCO) 5-325 mg per tablet 60 tablet 0 Sig: Take 1 tablet by mouth every 6 hours as needed for up to 31 days. RX INSTRUCTIONS: Patient aware RX will be sent to pharmacy. No need to notify patient. Holly Kim MA Carolee: 04/2022 No appointment scheduled Last refills: 04/02 and 05/03 * Telephone Encounter - Mary Wang Pss - 06/02/2022 8:21 AM EDT Patient has been identified by name and date of : Yes Requested Prescriptions Pending Prescriptions Disp Refills HYDROcodone-acetaminophen (NORCO) 5-325 mg per tablet 60 tablet 0 Sig: Take 1 tablet by mouth every 6 hours as needed for up to 31 days. HYDROcodone-acetaminophen (NORCO) 5-325 mg per tablet 60 tablet 0 Sig: Take 1 tablet by mouth every 6 hours as needed for up to 31 days. RX INSTRUCTIONS: Per Patient she receives 2 months at a time. Patient aware RX will be sent to pharmacy. No need to notify patient. Mary Wang Pss documented in this encounterAshtabula [facility]09-06-2022 Miscellaneous Notes* Telephone Encounter - Nguyen Maravilla Pss - 05/27/2022 10:11 AM EDT Pharmacy verified in Epic Patient has been identified by name and date of : Yes Patient aware RX will be sent to pharmacy. No need to notify patient. Patient phones for refill(s): Requested Prescriptions Pending Prescriptions Disp Refills SUMAtriptan (IMITREX) 100 mg tablet 9 tablet 3 Sig: Take 1 tablet by mouth as needed. Date of last office visit : 05/19/2022 Date of next office visit : Visit date not found Last 2 Encounter Wt Readings: Date: Wt: 05/19/2022 57.2 kg (126 lb) 03/03/2022 55.3 kg (122 lb) Please advise. Nguyen Maravilla Pss documented in this encounterAshtabula [facility] Hospital09-01-2022 Miscellaneous Notes* Telephone Encounter - Danitza Mendez LPN - 05/22/2022 9:20 AM EDT Patient has been identified by name and date of : Yes Requested Prescriptions Pending Prescriptions Disp Refills SUMAtriptan (IMITREX) 100 mg tablet 9 tablet 3 Sig: Take 1 tablet by mouth as needed. RX INSTRUCTIONS: Pharmacy initiated this request. No need to notify patient. Danitza Menedz LPN documented in this encounterAshtabula [facility] Hospital08-31-2022 Miscellaneous Notes* Telephone Encounter - Naz Dick MA - 05/21/2022 10:59 AM EDT Unable to reach patient. Left detailed message on identified VM with note below. Naz Dick MA * Telephone Encounter - Naz Dick MA - 05/21/2022 10:57 AM EDT ----- Message from John Pfeiffer PA-C sent at 05/21/2022 10:03 AM EDT ----- Please advise no fracture. Continue splint until pain is improving with progressive periods of splint free use. Rocco Mane PA-C documented in this encounterAshtabula [facility] Hospital08-29-2022 History of Present illness Narrative* Annika Blancas RT(R) - 05/19/2022 3:30 PM EDT Radiology Service Progress Note PATIENT NAME: Anastasia Simpson DATE OF SERVICE: May 19, 2022 TIME: 3:33 PM PATIENT IDENTITY VERIFICATION COMPLETED USING TWO (2) IDENTIFIERS: Name and Date of confirmedby patient verbally. FALL SCREENING: Has the patient had 2 falls in the last year or 1 fall with injury or currently using an Ambulatory Assistive Device (Walker, Cane, Wheelchair, Crutches, etc.)? No PATIENT GENDER DATA: Female. status: : No status: NO. PATIENT RELEVANT IMPLANT DATA REVIEWED: Yes RADIOLOGY DEPARTMENT: General X-ray: Exam(s) Completed: Upper Extremity X- Ray(s): Wrist, left PERIPHERAL IV DATA: Not applicable SIGNED BY: RT Meliton(R) May 19, 2022 3:33 PM documented in this encounterAshtabula [facility] Hospital08-29-2022 History of Present illness Narrative* John Pfeiffer PA-C - 05/19/2022 2:40 PM EDT 46 year old female with c/o 2 month follow up Ddd (degenerative disc disease), lumbar (primary encounter diagnosis) Arthralgia, unspecified joint Postlaminectomy syndrome Current medications: Hydrocodone-acetaminophen 5-325 mg every 6 hours as needed, using mostly at night Helps significantly Other migraine without status migrainosus, not intractable Headaches Current medications: Sumatriptan 100 mg tablet daily as needed Ondansetron 4 mg disintegrating every 6 hours as needed Last few months, about the same. Migraine runs 3-5 days in past now 10-12 day currently. Moderate major depression, single episode (hcc) Resolved Still practicing medication Gerd without esophagitis Current medications: famotidine 20 mg daily HS Followed Covid Sharp pains in the morning. Had a fall trying to jump over a small brick wall. for grandmother. 04/28/2022 scaphoid HISTORIES FAMILY HISTORY Problem Relation Age of Onset Lipids Mother Headache Mother Ischemic Heart Disease Maternal Grandmother Skin Cancer Maternal Grandmother 60 Ischemic Heart Disease Maternal Grandfather other (Melanoma [Other]) Maternal Grandfather 81 Hypertension Paternal Grandmother all grandparents Breast Cancer Paternal Grandmother 66 Breast Cancer Paternal Aunt 45 bilateral Colon Cancer Paternal Aunt 55 other (Kidney Cancer [Other]) Paternal Aunt 55 Breast Cancer Paternal Aunt 40s Breast Cancer Maternal Aunt 50s PAST MEDICAL HISTORY Diagnosis Date Basal cell carcinoma 2011, 2015 multiple sites High blood pressure Moderate major depression, single episode (HCC) 11/13/2020 PMH - PAST MEDICAL HISTORY OF irritable bowel syndrome PMH - PAST MEDICAL HISTORY OF back pain PMH - PAST MEDICAL HISTORY OF Injections L4-L5 by Dr Knox in [place] PAST SURGICAL HISTORY Procedure Laterality Date COLONOSCOPY FLX DX W/COLLJ SPEC WHEN PFRMD 02/28/2020 Colonoscopy-Dr Bryant ESOPHAGOGASTRODUODENOSCOPY TRANSORAL DIAGNOSTIC 02/28/2020 EGD-Dr Bryant LAPAROSCOPIC CHOLECYSTECTOMY 08/26/2018 Dr. Dashawn SAENZ TRUNK/ARM/LEG 1ST STAGE 5 BLOCKS multiple BCC PAST SURGICAL HISTORY OF 02/2003 x2 discectomy L4-5 S1 PAST SURGICAL HISTORY OF D&C PAST SURGICAL HISTORY OF 07/11/2004 L5-S1 anterior lumbar interbody fusion with posterior L5-S1 translaminar facet screw on left side and a facet joint screw on the right side, and this would be a 360-degree fusion PAST SURGICAL HISTORY OF 1999 lasix eye surgery PAST SURGICAL HISTORY OF 2003 wisdom teeth S THERMACHOICE UTERINE BALLOON 01/02/15 Hysteroscopy w/ endometrial ablation Social History Tobacco Use Smoking status: Never Smokeless tobacco: Never Vaping Use Vaping Use: Never used Substance Use Topics Alcohol use: No Drug use: No ACTIVE PROBLEM LIST Postlaminectomy Syndrome Basal Cell Carcinoma Dysmenorrhea Menorrhagia Migraine Chronic Insomnia Moderate Major Depression, Single Episode (Hcc) Current Outpatient Medications Medication Sig Dispense Refill HYDROcodone-acetaminophen (NORCO) 5-325 mg per tablet Take 1 tablet by mouth every 6 hours as needed for up to 31 days. Do not start before May 03, 2022. 60 tablet 0 HYDROcodone-acetaminophen (NORCO) 5-325 mg per tablet Take 1 tablet by mouth every 6 hours as needed for up to 31 days. 60 tablet 0 mometasone (ELOCON) 0.1 % cream Apply 1 application to affected area once daily. 45 g 0 famotidine (PEPCID) 20 mg tablet Take 1 tablet by mouth at bedtime as needed. 30 tablet 0 SUMAtriptan (IMITREX) 100 mg tablet Take 1 tablet by mouth as needed. 9 tablet 3 HYDROcodone-acetaminophen (NORCO) 5-325 mg per tablet Take 1 tablet by mouth every 6 hours as needed for up to 31 days. 60 tablet 0 propranolol ER (INDERAL LA) 60 mg 24 hr capsule Take 1 capsule by mouth once daily. 30 capsule 11 ondansetron orally disintegrating (ZOFRAN ODT) 4 mg disintegrating tablet Take 1 tablet by mouth every 6 hours as needed for nausea/vomiting. 20 tablet 0 COMPOUNDED PRESCRIPTION Mammogram: screening 1 Each 0 SENNOSIDES 8.6 MG TAB as needed for constipation 0 No current facility-administered medications for this visit. HEPATITIS B(1 of 3 - 3-dose series) Never done COVID-19 VACCINE(1) Never done HEPATITIS C SCREENING Never done HIV SCREENING Never done EXAM: BP 110/68 Pulse 70 Temp 36.6 C (97.8 F) (Left Tympanic) Resp 14 Wt 57.2 kg (126 lb) LMP 10/26/2021 SpO2 98% BMI 20.34 kg/m Pleasant well appearing adult woman in no acute distress. Alert and oriented all spheres. Normal affect and cognition. Speech normal. No deficits to learning or comprehension. Skin warm, dry, pink to lips and nailbeds. Normal turgor. Respirations regular and unlabored. HEENT: NCAT. No scleral icterus or conjunctival injection. TM's clear. Nose and oropharynx free from injection or lesion. Oral membranes moist and pink. No cervical lymph nodes. Thyroid non-tender, no masses, or enlargement. Carotids pulses 2+/4+ without bruits. No JVD with HOB at 30 degrees. + scaphoid tenderness left with significant pain on stress. + tenderness over right ITB with positive Asher's test. No pain over trochanter Extrem: no clubbing or cyanosis. Edema: none. Extremities are warm and pink with prompt capillary refill. ASSESSMENT/PLAN: 1. DDD (degenerative disc disease), lumbar - ICD9: 722.52, ICD10: M51.36 (primary diagnosis) Chronic pain issues managed on [place] without evidence of increase or diversion 2. Arthralgia, unspecified joint - ICD9: 719.40, ICD10: M25.50 As above 3. Other migraine without status migrainosus, not intractable - ICD9: 346.80, ICD10: G43.809 Stable on current regimen. 4. Headaches - ICD9: 784.0, ICD10: R51.9 Discussed other options such as Emgality and Aimovig 5. Postlaminectomy syndrome - ICD9: 722.80, ICD10: M96.1 stable 6. Moderate major depression, single episode (HCC) - ICD9: 296.22, ICD10: F32.1 Resolved with behavioral modification 7. GERD without esophagitis - ICD9: 530.81, ICD10: K21.9 controlled 8. Sprain of left wrist, subsequent encounter - ICD9: V58.89, 842.00, ICD10: S63.502D Worrisome for scaphoid fracture: repeat xray, continue splint - XR WRIST GENERAL 3V PA/LAT/OBL LEFT 9. Iliotibial band syndrome affecting lower leg, right - ICD9: 728.89, ICD10: M76.31 Reviewed stretching and muscle energy techniques with pdf from [facility] F/u prn John Pfeiffer PA-C documented in this encounterAshtabula [facility] Hospital07-13-2022 Miscellaneous Notes* Telephone Encounter - Chris Bullard LPN - 04/02/2022 8:46 AM EDT CAROLEE 03/03/22 NOV 05/05/22 * Telephone Encounter - Mary Rangel - 04/02/2022 8:21 AM EDT Patient has been identified by name and date of : Yes Pending Prescriptions Disp Refills HYDROCODONE 5 MG-ACETAMINOPHEN 325 MG TABLET 60 tablet 0 Sig: Take 1 tablet by mouth every 6 hours as needed for up to 31 days. STAS Class: C-II SHEILA: No HYDROCODONE 5 MG-ACETAMINOPHEN 325 MG TABLET 60 tablet 0 Sig: Take 1 tablet by mouth every 6 hours as needed for up to 31 days. STAS Class: C-II SHEILA: No RX INSTRUCTIONS: Patient requested prescriptions for 2 months. Patient aware RX will be sent to pharmacy. No need to notify patient. Mary Wang Pss documented in this encounterAshtabula General Hospital06-21-2022 Miscellaneous Notes* Telephone Encounter - Skye Garcia LPN - 03/11/2022 1:24 PM EDT Images from the original note were not included. Pt notified of message below. Result Notes Jacek Scruggs MD 03/04/2022 3:00 PM EDT Back to Top Let her know her labs are all negative. MD Skye Castro HEEL SEWER documented in this encounterAshtabula [facility] Hospital06-13-2022 Miscellaneous Notes* Addendum Note - Jacek Scruggs MD - 03/03/2022 8:49 AM EDT Addended by: JACEK SCRUGGS on: 03/03/2022 08:49 AM Modules accepted: Orders documented in this encounterAshtabula [facility] Hospital06-13-2022 History of Present illness Narrative* Jacek Scruggs MD - 03/03/2022 8:12 AM EDT Patient presents with: Follow Up Derm Problem: red dry spots Joint Pain: hand elbow joint pain holding something with weight is an issue HPI: Patient presents today for office visit for follow up. oarrs done. Needs updated controlled substance agreement. Up to date on tox screen. Has seen specialist who concurs with diagnosis. Aware of risks and benefits. No misuse or abuse of meds. meds are helping to function. Has some red dry spots on her skin. Can get crusty. Comes and goes. Usually last about 7 to 10 days. Bring a picture of the last one. Red flags for re-assessment reviewed with patient in detail. Having a lot of joint pain. Is in her hands and elbows and knees. Hurts to hold things. No redness or warmth or swelling. Is always active. No trauma. Had an xray of her knees several months ago after a fall and xray was ok. Component Latest Ref Rng & Units 02/07/2022 WBC 3.70 - 11.00 k/uL 6.17 RBC 3.90 - 5.20 m/uL 4.42 Hemoglobin 11.5 - 15.5 g/dL 12.8 Hematocrit 36.0 - 46.0 % 41.1 MCV 80.0 - 100.0 fL 93.0 MCH 26.0 - 34.0 pg 29.0 MCHC 30.5 - 36.0 g/dL 31.1 RDW-CV 11.5 - 15.0 % 12.9 Platelet Count 150 - 400 k/uL 208 MPV 9.0 - 12.7 fL 11.2 Neut% % 57.0 Abs Neut (ANC) 1.45 - 7.50 k/uL 3.51 Lymph% % 32.7 Abs Lymph 1.00 - 4.00 k/uL 2.02 Erie% % 7.8 Abs Erie <0.87 k/uL 0.48 Eosin% % 0.8 Abs Eosin <0.46 k/uL 0.05 Baso% % 1.1 Abs Baso <0.11 k/uL 0.07 Immature Gran % % 0.6 IMMATURE GRANS (ABS) <0.10 k/uL 0.04 NRBC /100 WBC 0.0 Absolute nRBC <0.01 k/uL <0.01 DTYPE Auto Protein, Total 6.3 - 8.0 g/dL 6.7 Albumin 3.9 - 4.9 g/dL 4.4 Calcium 8.5 - 10.2 mg/dL 9.4 Bilirubin, Total 0.2 - 1.3 mg/dL 0.4 Alkaline Phosphatase 34 - 123 U/L 59 AST 13 - 35 U/L 20 ALT 7 - 38 U/L 15 Glucose 74 - 99 mg/dL 82 BUN 7 - 21 mg/dL 9 Creatinine 0.58 - 0.96 mg/dL 0.69 Sodium 136 - 144 mmol/L 139 Potassium 3.7 - 5.1 mmol/L 4.1 Chloride 97 - 105 mmol/L 105 CO2 22 - 30 mmol/L 24 Anion Gap 9 - 18 mmol/L 10 eGFR >=60 mL/min/1.73m 109 Cholesterol, Total <200 mg/dL 178 Triglyceride <150 mg/dL 63 HDL Cholesterol >39 mg/dL 61 Non HDL Cholesterol <130 mg/dL 117 Fasting Time hrs 12 VLDL Cholesterol <30 mg/dL 13 TC:HDL Ratio <5.10 2.92 LDL Cholesterol <100 mg/dL 104 (H) LDL:HDL Ratio <2.54 1.70 Phencyclidine Negative Negative Benzodiazepines Urine Negative Negative Cocaine Urine Negative Negative Amphetamines Negative Negative Cannabinoids, Urine Negative Negative Opiates Negative Preliminary positive (A) Barbiturates Negative Negative Ethanol, Urine <11 mg/dL <11 Oxycodone, Urine Negative Negative MEDICATIONS: Current Outpatient Medications Medication Sig famotidine (PEPCID) 20 mg tablet Take 1 tablet by mouth at bedtime as needed. HYDROcodone-acetaminophen (NORCO) 5-325 mg per tablet Take 1 tablet by mouth every 6 hours as needed for up to 31 days. SUMAtriptan (IMITREX) 100 mg tablet Take 1 tablet by mouth as needed. propranolol ER (INDERAL LA) 60 mg 24 hr capsule Take 1 capsule by mouth once daily. HYDROcodone-acetaminophen (NORCO) 5-325 mg per tablet Take 1 tablet by mouth every 6 hours as needed for up to 31 days. ondansetron orally disintegrating (ZOFRAN ODT) 4 mg disintegrating tablet Take 1 tablet by mouth every 6 hours as needed for nausea/vomiting. COMPOUNDED PRESCRIPTION Mammogram: screening SENNOSIDES 8.6 MG TAB as needed for constipation No current facility-administered medications for this visit. ALLERGIES: ALLERGIES Allergen Reactions Celestone [Betameth* Other: See Comments Cheeks and neck red and hot- felt like she had a fever in top 1/2 of body, other steroids have beenok Codeine GI UPSET, HEART RACES Neurontin [Gabapent* Other: See Comments Extreme dizziness Sulfa (Sulfonamide * UNKNOWN PAST MEDICAL HISTORY Diagnosis Date Basal cell carcinoma 2011, 2015 multiple sites High blood pressure Moderate major depression, single episode (HCC) 11/13/2020 PMH - PAST MEDICAL HISTORY OF irritable bowel syndrome PMH - PAST MEDICAL HISTORY OF back pain PMH - PAST MEDICAL HISTORY OF Injections L4-L5 by Dr Knox in [place] PAST SURGICAL HISTORY Procedure Laterality Date COLONOSCOPY FLX DX W/COLLJ SPEC WHEN PFRMD 02/28/2020 Colonoscopy-Dr Bryant ESOPHAGOGASTRODUODENOSCOPY TRANSORAL DIAGNOSTIC 02/28/2020 EGD-Dr Bryant LAPAROSCOPIC CHOLECYSTECTOMY 08/26/2018 Dr. Bryant MOHS TRUNK/ARM/LEG 1ST STAGE 5 BLOCKS multiple BCC PAST SURGICAL HISTORY OF 02/2003 x2 discectomy L4-5 S1 PAST SURGICAL HISTORY OF D&C PAST SURGICAL HISTORY OF 07/11/2004 L5-S1 anterior lumbar interbody fusion with posterior L5-S1 translaminar facet screw on left side and a facet joint screw on the right side, and this would be a 360-degree fusion PAST SURGICAL HISTORY OF 1999 lasix eye surgery PAST SURGICAL HISTORY OF 2003 wisdom teeth S THERMACHOICE UTERINE BALLOON 01/02/15 Hysteroscopy w/ endometrial ablation FAMILY HISTORY Problem Relation Age of Onset Lipids Mother Headache Mother Ischemic Heart Disease Maternal Grandmother Skin Cancer Maternal Grandmother 60 Ischemic Heart Disease Maternal Grandfather other (Melanoma [Other]) Maternal Grandfather 81 Hypertension Paternal Grandmother all grandparents Breast Cancer Paternal Grandmother 66 Breast Cancer Paternal Aunt 45 bilateral Colon Cancer Paternal Aunt 55 other (Kidney Cancer [Other]) Paternal Aunt 55 Breast Cancer Paternal Aunt 40s Breast Cancer Maternal Aunt 50s Social History Tobacco Use Smoking status: Never Smoker Smokeless tobacco: Never Used Vaping Use Vaping Use: Never used Substance Use Topics Alcohol use: No Drug use: No Reviewed current medications, allergies, past medical history, surgical history, family history andsocial history today. REVIEW OF SYSTEMS All other reviewed and negative other than HPI. VITALS: BP 92/62 Pulse 76 Wt 55.3 kg (122 lb) LMP 10/26/2021 BMI 19.69 kg/m Last 4 Encounter Wt Readings: Date: Wt: 03/03/2022 55.3 kg (122 lb) 01/01/2022 55.8 kg (123 lb) 11/06/2021 55.7 kg (122 lb 12.8 oz) 09/04/2021 56.2 kg (124 lb) PHYSICAL EXAMINATION: General appearance: Well appearing, alert, in no acute distress, well-hydrated, well nourished. Skin: Skin color, texture, turgor normal, no suspicious rashes or lesions Head: Normocephalic, no masses, lesions, tenderness or abnormalities Lungs: Lungs clear to auscultation. No wheezing, rhonchi, rales Heart: RRR without murmur, gallop, or rubs. No ectopy Abdomen: Normal abdominal exam, Abdomen soft, non-tender. Bowel sounds normal. No masses, organomegaly Extremities: No deformities, edema, skin discoloration, clubbing or cyanosis. Good capillary refill. Musculoskeletal: No joint swelling, deformity, or tenderness ASSESSMENT/PLAN: 1. Arthralgia, unspecified joint - ICD9: 719.40, ICD10: M25.50 (primary diagnosis) - check labs. 2. DDD (degenerative disc disease), lumbar - ICD9: 722.52, ICD10: M51.36 Chronic low back pain - continue meds. Controlled substance agreement signed. - HYDROCODONE 5 MG-ACETAMINOPHEN 325 MG TABLET 3. Headaches - ICD9: 784.0, ICD10: R51.9 - stable. 4. Dermatitis - ICD9: 692.9, ICD10: L30.9 - discussed skin care of rash - follow up if symptoms persist or worsen. - mometasone Jacek Scruggs RTO in two months and prn. Medical Decision Making documented in this encounterAs[facility] Miscellaneous Notes* Telephone Encounter - Ashley Campos Ben HEEL SEWER - 01/31/2022 8:19 AM EDT Pt went to [facility] to berry picker her NORCO and there is no prescription. She is getting ready to go out of town and has a flight soon. Asking if this can be expedited. Patient has been identified by name and date of : Yes Patient phones for refill(s): Pending Prescriptions Disp Refills HYDROCODONE 5 MG-ACETAMINOPHEN 325 MG TABLET 60 tablet 0 Sig: Take 1 tablet by mouth every 6 hours as needed for up to 31 days. STAS Class: C-II SHEILA: No HYDROCODONE 5 MG-ACETAMINOPHEN 325 MG TABLET 60 tablet 0 Sig: Take 1 tablet by mouth every 6 hours as needed for up to 31 days. STAS Class: C-II SHEILA: No Date of last office visit in primary care: 01/01/22 next apt 03/03/22 Last 2 Encounter Wt Readings: Date: Wt: 01/01/2022 55.8 kg (123 lb) 11/06/2021 55.7 kg (122 lb 12.8 oz) Previous labs/tests for medication: Not applicable Please advise. Thank you. Ashley Contreras LPN documented in this encounterAsht[facility]05-06-[facility]22 Miscellaneous Notes* Telephone Encounter - Mary Rangel - 01/24/2022 10:18 AM EDT Patient has been identified by name and date of : Yes Pending Prescriptions Disp Refills SUMATRIPTAN 100 MG TABLET 9 tablet 3 Sig: Take 1 tablet by mouth as needed. SHEILA: No RX INSTRUCTIONS: Patient is out of medication, please send today, she is having a migraine. Patient aware RX will be sent to pharmacy. No need to notify patient. Mary Rangel documented in this encounterAshtabula [facility]04-13-2022 History of Present illness Narrative* Jacek Scruggs MD - 01/01/2022 4:05 PM EDT Patient presents with: Follow Up: 2 month HPI: Patient presents today for office visit for follow up. Reminded to get labs as ordered last ov: meds are working well. Feels they are still helping her to perform her daily activities. Has seen multiple specialists, including pain management. Did have a recent issues that improved with some prednisone after a fall. No new numbness or weakness. Headaches have been stable. Has runs of good and bad. imitrex will help. Usually worse around her menses. Still using her inderal. Has noted some cramping since she thinks she had covid. Happens always in the am. No bowel changes. Is upper abdomen. No heartburn. See previous ov in 11/06/21: oarrs done. Continues on meds for chronic pain. Overall is stable. Has seen specialist. Aware of risks and benefits. Helps her to function. Still feels meds are a benefit. Did do controlled substance agreement in thelast year. Skin has been stable. May have had covid. Lost her smell and taste. Test was negative. However clinical pictre would sound like that. MEDICATIONS: Current Outpatient Medications Medication Sig ondansetron orally disintegrating (ZOFRAN ODT) 4 mg disintegrating tablet Take 1 tablet by mouth every 6 hours as needed for nausea/vomiting. HYDROcodone-acetaminophen (NORCO) 5-325 mg per tablet Take 1 tablet by mouth every 6 hours as needed for up to 31 days. Do not start before December 04, 2021. HYDROcodone-acetaminophen (NORCO) 5-325 mg per tablet Take 1 tablet by mouth every 6 hours as needed for up to 31 days. SUMAtriptan (IMITREX) 100 mg tablet Take 1 tablet by mouth as needed. propranolol ER (INDERAL LA) 60 mg 24 hr capsule Take 1 capsule by mouth once daily. COMPOUNDED PRESCRIPTION Mammogram: screening SENNOSIDES 8.6 MG TAB as needed for constipation No current facility-administered medications for this visit. ALLERGIES: ALLERGIES Allergen Reactions Celestone [Betameth* Other: See Comments Cheeks and neck red and hot- felt like she had a fever in top 1/2 of body, other steroids have beenok Codeine GI UPSET, HEART RACES Neurontin [Gabapent* Other: See Comments Extreme dizziness Sulfa (Sulfonamide * UNKNOWN PAST MEDICAL HISTORY Diagnosis Date Basal cell carcinoma 2011, 2016 multiple sites High blood pressure Moderate major depression, single episode (HCC) 11/13/2020 PMH - PAST MEDICAL HISTORY OF irritable bowel syndrome PMH - PAST MEDICAL HISTORY OF back pain PMH - PAST MEDICAL HISTORY OF Injections L4-L5 by Dr Knox in [place] PAST SURGICAL HISTORY Procedure Laterality Date COLONOSCOPY FLX DX W/COLLJ SPEC WHEN PFRMD 02/28/2020 Colonoscopy-Dr Bryant ESOPHAGOGASTRODUODENOSCOPY TRANSORAL DIAGNOSTIC 02/28/2020 EGD-Dr Bryant LAPAROSCOPIC CHOLECYSTECTOMY 08/26/2018 Dr. Dashawn MOHS TRUNK/ARM/LEG 1ST STAGE 5 BLOCKS multiple BCC PAST SURGICAL HISTORY OF 02/2003 x2 discectomy L4-5 S1 PAST SURGICAL HISTORY OF D&C PAST SURGICAL HISTORY OF 07/11/2004 L5-S1 anterior lumbar interbody fusion with posterior L5-S1 translaminar facet screw on left side and a facet joint screw on the right side, and this would be a 360-degree fusion PAST SURGICAL HISTORY OF 1999 lasix eye surgery PAST SURGICAL HISTORY OF 2003 wisdom teeth S THERMACHOICE UTERINE BALLOON 01/02/15 Hysteroscopy w/ endometrial ablation FAMILY HISTORY Problem Relation Age of Onset Lipids Mother Headache Mother Ischemic Heart Disease Maternal Grandmother Skin Cancer Maternal Grandmother 60 Ischemic Heart Disease Maternal Grandfather other (Melanoma [Other]) Maternal Grandfather 81 Hypertension Paternal Grandmother all grandparents Breast Cancer Paternal Grandmother 66 Breast Cancer Paternal Aunt 45 bilateral Colon Cancer Paternal Aunt 55 other (Kidney Cancer [Other]) Paternal Aunt 55 Breast Cancer Paternal Aunt 40s Breast Cancer Maternal Aunt 50s Social History Tobacco Use Smoking status: Never Smoker Smokeless tobacco: Never Used Vaping Use Vaping Use: Never used Substance Use Topics Alcohol use: No Drug use: No Reviewed current medications, allergies, past medical history, surgical history, family history andsocial history today. REVIEW OF SYSTEMS RESPIRATORY: Negative for cough, hemoptysis, wheezing, COPD, dyspnea or shortness of breath CARDIOVASCULAR: Negative for chest pain, leg swelling, hypertension, CHF or palpitations All other reviewed and negative other than HPI. VITALS: BP 122/84 Pulse 88 Wt 55.8 kg (123 lb) LMP 10/26/2021 BMI 19.85 kg/m Last 4 Encounter Wt Readings: Date: Wt: 11/06/2021 55.7 kg (122 lb 12.8 oz) 09/04/2021 56.2 kg (124 lb) 07/05/2021 54.4 kg (120 lb) 05/06/2021 54.4 kg (120 lb) PHYSICAL EXAMINATION: General appearance: Well appearing, alert, in no acute distress, well-hydrated, well nourished. Skin: Skin color, texture, turgor normal, no suspicious rashes or lesions Head: Normocephalic, no masses, lesions, tenderness or abnormalities Eyes: Anicteric sclera. Pupils are equally round and reactive to light. Extraocular movements are intact. cultation. No wheezing, rhonchi, rales} Heart: RRR without murmur, gallop, or rubs. No ectopy Abdomen: Normal abdominal exam, Abdomen soft, non-tender. Bowel sounds normal. No masses, organomegaly Extremities: No deformities, edema, skin discoloration, clubbing or cyanosis. Good capillary refill. Musculoskeletal: No joint swelling, deformity, or tenderness Peripheral pulses: Normal Neuro: Negative. ASSESSMENT/PLAN: 1. GERD without esophagitis - ICD9: 530.81, ICD10: K21.9 (primary diagnosis) - add pepcid for the next month. Let me know if worsens or not better at the end of the month 2. DDD (degenerative disc disease), lumbar - ICD9: 722.52, ICD10: M51.36 Chronic low back pain - get labs. - HYDROCODONE 5 MG-ACETAMINOPHEN 325 MG TABLET 3. Other migraine without status migrainosus, not intractable - ICD9: 346.80, ICD10: G43.809 - PROPRANOLOL ER 60 MG CAPSULE,24 HR,EXTENDED RELEASE Jacek Scruggs documented in this encounterAs[facility]02-23-[facility]21 History of Past illness Narrative* Problem Noted Date Resolved Date Moderate major depression, single episode 202005/19/2022 Overview: Feels resolved after about 6 months. Visit for wound check 04/09/2012 06/25/2012 Chronic low back pain 10/01/2010 04/09/2015 Headache(784.0) 10/05/2007 11/07/2009 documented as of this encounter (statuses as of 05/19/2022) [facility] of Past illness Narrative* Problem Noted Date Resolved Date Moderate major depression, single episode 202005/19/2022 Overview: Feels resolved after about 6 months. Visit for wound check 04/09/2012 06/25/2012 Chronic low back pain 10/01/2010 04/09/2015 Headache(784.0) 10/05/2007 11/07/2009 documented as of this encounter (statuses as of 05/21/2022) [facility] of [facility] illness Narrative* Problem Noted Date Resolved Date Moderate major depression, single episode 202005/19/2022 Overview: Feels resolved after about 6 months. Visit for wound check 04/09/2012 06/25/2012 Chronic low back pain 10/01/2010 04/09/2015 Headache(784.0) 10/05/2007 11/07/2009 documented as of this encounter (statuses as of 05/22/2022) [facility] of Past illness Narrative* Problem Noted Date Resolved Date Moderate major depression, single episode 202005/19/2022 Overview: Feels resolved after about 6 months. Visit for wound check 04/09/2012 06/25/2012 Chronic low back pain 10/01/2010 04/09/2015 Headache(784.0) 10/05/2007 11/07/2009 documented as of this encounter (statuses as of 05/27/2022) [facility] illness Narrative* Problem Noted Date Resolved Date Moderate major depression, single episode 202005/19/2022 Overview: Feels resolved after about 6 months. Visit for wound check 04/09/2012 06/25/2012 Chronic low back pain 10/01/2010 04/09/2015 Headache(784.0) 10/05/2007 11/07/2009 documented as of this encounter (statuses as of 06/02/2022) [facility] illness Narrative* Problem Noted Date Resolved Date Moderate major depression, single episode 202005/19/2022 Overview: Feels resolved after about 6 months. Visit for wound check 04/09/2012 06/25/2012 Chronic low back pain 10/01/2010 04/09/2015 Headache(784.0) 10/05/2007 11/07/2009 documented as of this encounter (statuses as of 07/01/2022) [address]23-2021 History of Past illness Narrative* Problem Noted Date Resolved Date Moderate major depression, single episode 202005/19/2022 Overview: Feels resolved after about 6 months. Visit for wound check 04/09/2012 06/25/2012 Chronic low back pain 10/01/2010 04/09/2015 Headache(784.0) 10/05/2007 11/07/2009 documented as of this encounter (statuses as of 07/04/2022) [address]23-2021 History of Past illness Narrative* Problem Noted Date Resolved Date Moderate major depression, single episode 202005/19/2022 Overview: Feels resolved after about 6 months. Visit for wound check 04/09/2012 06/25/2012 Chronic low back pain 10/01/2010 04/09/2015 Headache(784.0) 10/05/2007 11/07/2009 documented as of this encounter (statuses as of 07/28/2022) [address]23-2021 History of Past illness Narrative* Problem Noted Date Resolved Date Moderate major depression, single episode 202005/19/2022 Overview: Feels resolved after about 6 months. Visit for wound check 04/09/2012 06/25/2012 Chronic low back pain 10/01/2010 04/09/2015 Headache(784.0) 10/05/2007 11/07/2009 documented as of this encounter (statuses as of 08/01/2022) [address]23-2021 History of Past illness Narrative* Problem Noted Date Resolved Date Moderate major depression, single episode 202005/19/2022 Overview: Feels resolved after about 6 months. Visit for wound check 04/09/2012 06/25/2012 Chronic low back pain 10/01/2010 04/09/2015 Headache(784.0) 10/05/2007 11/07/2009 documented as of this encounter (statuses as of 09/29/2022) [address]23-2021 History of Past illness Narrative* Problem Noted Date Resolved Date Moderate major depression, single episode 202005/19/2022 Overview: Feels resolved after about 6 months. Visit for wound check 04/09/2012 06/25/2012 Chronic low back pain 10/01/2010 04/09/2015 Headache(784.0) 10/05/2007 11/07/2009 documented as of this encounter (statuses as of 10/06/2022) [facility] Narrative* Problem Noted Date Resolved Date Moderate major depression, single episode 202005/19/2022 Overview: Feels resolved after about 6 months. Visit for wound check 04/09/2012 06/25/2012 Chronic low back pain 10/01/2010 04/09/2015 Headache(784.0) 10/05/2007 11/07/2009 documented as of this encounter (statuses as of 10/15/2022) [facility] Narrative* Problem Noted Date Resolved Date Moderate major depression, single episode 202005/19/2022 Overview: Feels resolved after about 6 months. Visit for wound check 04/09/2012 06/25/2012 Chronic low back pain 10/01/2010 04/09/2015 Headache(784.0) 10/05/2007 11/07/2009 documented as of this encounter (statuses as of 10/28/2022) [facility] Narrative* Problem Noted Date Resolved Date Moderate major depression, single episode 202005/19/2022 Overview: Feels resolved after about 6 months. Visit for wound check 04/09/2012 06/25/2012 Chronic low back pain 10/01/2010 04/09/2015 Headache(784.0) 10/05/2007 11/07/2009 documented as of this encounter (statuses as of 11/13/2022) [facility] Narrative* Problem Noted Date Resolved Date Moderate major depression, single episode 202005/19/2022 Overview: Feels resolved after about 6 months. Visit for wound check 04/09/2012 06/25/2012 Chronic low back pain 10/01/2010 04/09/2015 Headache(784.0) 10/05/2007 11/07/2009 documented as of this encounter (statuses as of 11/25/2022) [address]23-2021 History of Past illness Narrative* Problem Noted Date Resolved Date Moderate major depression, single episode 202005/19/2022 Overview: Feels resolved after about 6 months. Visit for wound check 04/09/2012 06/25/2012 Chronic low back pain 10/01/2010 04/09/2015 Headache(784.0) 10/05/2007 11/07/2009 documented as of this encounter (statuses as of 12/05/2022) [address]23-2021 History of Past illness Narrative* Problem Noted Date Resolved Date Moderate major depression, single episode 202005/19/2022 Overview: Feels resolved after about 6 months. Visit for wound check 04/09/2012 06/25/2012 Chronic low back pain 10/01/2010 04/09/2015 Headache(784.0) 10/05/2007 11/07/2009 documented as of this encounter (statuses as of 2022) [address]23-2021 History of Past illness Narrative* Problem Noted Date Resolved Date Moderate major depression, single episode 202005/19/2022 Overview: Feels resolved after about 6 months. Visit for wound check 04/09/2012 06/25/2012 Chronic low back pain 10/01/2010 04/09/2015 Headache(784.0) 10/05/2007 11/07/2009 documented as of this encounter (statuses as of 12/30/2022) [place] [address]-23-2021 History of Past illness Narrative* Problem Noted Date Resolved Date Moderate major depression, single episode 202005/19/2022 Overview: Feels resolved after about 6 months. Visit for wound check 04/09/2012 06/25/2012 Chronic low back pain 10/01/2010 04/09/2015 Headache(784.0) 10/05/2007 11/07/2009 documented as of this encounter (statuses as of 01/13/2023) [facility] Narrative* Problem Noted Date Resolved Date Moderate major depression, single episode 202005/19/2022 Overview: Feels resolved after about 6 months. Visit for wound check 04/09/2012 06/25/2012 Chronic low back pain 10/01/2010 04/09/2015 Headache(784.0) 10/05/2007 11/07/2009 documented as of this encounter (statuses as of 02/18/2023) [facility] Narrative* Problem Noted Date Resolved Date Moderate major depression, single episode 202005/19/2022 Overview: Feels resolved after about 6 months. Visit for wound check 04/09/2012 06/25/2012 Chronic low back pain 10/01/2010 04/09/2015 Headache(784.0) 10/05/2007 11/07/2009 documented as of this encounter (statuses as of 03/18/2023) [facility] Narrative* Problem Noted Date Resolved Date Moderate major depression, single episode 202005/19/2022 Overview: Feels resolved after about 6 months. Visit for wound check 04/09/2012 06/25/2012 Chronic low back pain 10/01/2010 04/09/2015 Headache(784.0) 10/05/2007 11/07/2009 documented as of this encounter (statuses as of 03/21/2023) [facility] Narrative* Problem Noted Date Resolved Date Moderate major depression, single episode 202005/19/2022 Overview: Feels resolved after about 6 months. Visit for wound check 04/09/2012 06/25/2012 Chronic low back pain 10/01/2010 04/09/2015 Headache(784.0) 10/05/2007 11/07/2009 documented as of this encounter (statuses as of 03/25/2023) [facility] Narrative* Problem Noted Date Diagnosed Date Resolved Date Moderate major depression, single episode 11/13/2020 05/19/2022 Overview: Feels resolved after about 6 months. Visit for wound check 04/09/20122011 Chronic low back pain 10/01/20102014 Headache(784.0) 10/05/2007 11/07/2009 documented as of this encounter (statuses as of 04/09/2023) [facility] Narrative* Problem Noted Date Diagnosed Date Resolved Date Moderate major depression, single episode 11/13/2020 05/19/2022 Overview: Feels resolved after about 6 months. Visit for wound check 04/09/20122011 Chronic low back pain 10/01/20102014 Headache(784.0) 10/05/2007 11/07/2009 documented as of this encounter (statuses as of 05/11/2023) [facility] Narrative* Problem Noted Date Diagnosed Date Resolved Date Moderate major depression, single episode 11/13/2020 05/19/2022 Overview: Feels resolved after about 6 months. Visit for wound check 04/09/20122011 Chronic low back pain 10/01/20102014 Headache(784.0) 10/05/2007 11/07/2009 documented as of this encounter (statuses as of 05/12/2023) [address]23-2021 History of Past illness Narrative* Problem Noted Date Diagnosed Date Resolved Date Moderate major depression, single episode 11/13/2020 05/19/2022 Overview: Feels resolved after about 6 months. Visit for wound check 04/09/20122011 Chronic low back pain 10/01/20102014 Headache(784.0) 10/05/2007 11/07/2009 documented as of this encounter (statuses as of 06/02/2023) [facility] Narrative* Problem Noted Date Diagnosed Date Resolved Date Moderate major depression, single episode 11/13/2020 05/19/2022 Overview: Feels resolved after about 6 months. Visit for wound check 04/09/20122011 Chronic low back pain 10/01/20102014 Headache(784.0) 10/05/2007 11/07/2009 documented as of this encounter (statuses as of 07/06/2023) [facility] Narrative* Problem Noted Date Diagnosed Date Resolved Date Moderate major depression, single episode 11/13/2020 05/19/2022 Overview: Feels resolved after about 6 months. Visit for wound check 04/09/20122011 Chronic low back pain 10/01/20102014 Headache(784.0) 10/05/2007 11/07/2009 documented as of this encounter (statuses as of 07/09/2023) [facility]-23-2021 History of Past illness Narrative* Problem Noted Date Diagnosed Date Resolved Date Moderate major depression, single episode 11/13/2020 05/19/2022 Overview: Feels resolved after about 6 months. Visit for wound check 04/09/20122011 Chronic low back pain 10/01/20102014 Headache(784.0) 10/05/2007 11/07/2009 documented as of this encounter (statuses as of 07/26/2023) [facility]-23-2021 History of Past illness Narrative* Problem Noted Date Diagnosed Date Resolved Date Moderate major depression, single episode 11/13/2020 05/19/2022 Overview: Feels resolved after about 6 months. Visit for wound check 04/09/20122011 Chronic low back pain 10/01/20102014 Headache(784.0) 10/05/2007 11/07/2009 documented as of this encounter (statuses as of 08/04/2023) [facility]21 History of Past illness Narrative* Problem Noted Date Diagnosed Date Resolved Date Moderate major depression, single episode 11/13/2020 05/19/2022 Overview: Feels resolved after about 6 months. Visit for wound check 04/09/20122011 Chronic low back pain 10/01/20102014 Headache(784.0) 10/05/2007 11/07/2009 documented as of this encounter (statuses as of 08/05/2023) [facility]21 History of Past illness Narrative* Problem Noted Date Diagnosed Date Resolved Date Moderate major depression, single episode 11/13/2020 05/19/2022 Overview: Feels resolved after about 6 months. Visit for wound check 04/09/20122011 Chronic low back pain 10/01/20102014 Headache(784.0) 10/05/2007 11/07/2009 documented as of this encounter (statuses as of 08/13/2023) [facility] History of Past illness Narrative* Problem Noted Date Diagnosed Date Resolved Date Moderate major depression, single episode 11/13/2020 05/19/2022 Overview: Feels resolved after about 6 months. Visit for wound check 04/09/20122011 Chronic low back pain 10/01/20102014 Headache(784.0) 10/05/2007 11/07/2009 documented as of this encounter (statuses as of 08/18/2023) [place] [address]-23-2021 History of Past illness Narrative* Problem Noted Date Diagnosed Date Resolved Date Moderate major depression, single episode 11/13/2020 05/19/2022 Overview: Feels resolved after about 6 months. Visit for wound check 04/09/20122011 Chronic low back pain 10/01/20102014 Headache(784.0) 10/05/2007 11/07/2009 documented as of this encounter (statuses as of 08/25/2023) [facility] History of Past illness Narrative* Problem Noted Date Diagnosed Date Resolved Date Moderate major depression, single episode 11/13/2020 05/19/2022 Overview: Feels resolved after about 6 months. Visit for wound check 04/09/20122011 Chronic low back pain 10/01/20102014 Headache(784.0) 10/05/2007 11/07/2009 documented as of this encounter (statuses as of 09/02/2023) [facility] History of Past illness Narrative* Problem Noted Date Diagnosed Date Resolved Date Moderate major depression, single episode 11/13/2020 05/19/2022 Overview: Feels resolved after about 6 months. Visit for wound check 04/09/20122011 Chronic low back pain 10/01/20102014 Headache(784.0) 10/05/2007 11/07/2009 documented as of this encounter (statuses as of 10/27/2023) [facility] History of Past illness Narrative* Problem Noted Date Diagnosed Date Resolved Date Moderate major depression, single episode 11/13/2020 05/19/2022 Overview: Feels resolved after about 6 months. Visit for wound check 04/09/20122011 Chronic low back pain 10/01/20102014 Headache(784.0) 10/05/2007 11/07/2009 documented as of this encounter (statuses as of 11/23/2023) [address]23-2021 History of Past illness Narrative* Problem Noted Date Diagnosed Date Resolved Date Moderate major depression, single episode 11/13/2020 05/19/2022 Overview: Feels resolved after about 6 months. Visit for wound check 04/09/20122011 Chronic low back pain 10/01/20102014 Headache(784.0) 10/05/2007 11/07/2009 documented as of this encounter (statuses as of 12/07/2023) [facility]21 History of Past illness Narrative* Problem Noted Date Diagnosed Date Resolved Date Moderate major depression, single episode 11/13/2020 05/19/2022 Overview: Feels resolved after about 6 months. Visit for wound check 04/09/20122011 Chronic low back pain 10/01/20102014 Headache(784.0) 10/05/2007 11/07/2009 documented as of this encounter (statuses as of 12/21/2023) [facility]21 History of Past illness Narrative* Problem Noted Date Diagnosed Date Resolved Date Moderate major depression, single episode 11/13/2020 05/19/2022 Overview: Feels resolved after about 6 months. Visit for wound check 04/09/20122011 Chronic low back pain 10/01/20102014 Headache(784.0) 10/05/2007 11/07/2009 documented as of this encounter (statuses as of 12/28/2023) [facility]2012 History of Past illness Narrative* Problem Noted Date Resolved Date Visit for wound check 04/09/2012 06/25/2012 Chronic low back pain 10/01/2010 04/09/2015 Headache(784.0) 10/05/2007 11/07/2009 documented as of this encounter (statuses as of 01/01/2022) [facility] History of Past illness Narrative* Problem Noted Date Resolved Date Visit for wound check 04/09/2012 06/25/2012 Chronic low back pain 10/01/2010 04/09/2015 Headache(784.0) 10/05/2007 11/07/2009 documented as of this encounter (statuses as of 01/24/2022) [facility] History of Past illness Narrative* Problem Noted Date Resolved Date Visit for wound check 04/09/2012 06/25/2012 Chronic low back pain 10/01/2010 04/09/2015 Headache(784.0) 10/05/2007 11/07/2009 documented as of this encounter (statuses as of 01/31/2022) [address]20-2012 History of Past illness Narrative* Problem Noted Date Resolved Date Visit for wound check 04/09/2012 06/25/2012 Chronic low back pain 10/01/2010 04/09/2015 Headache(784.0) 10/05/2007 11/07/2009 documented as of this encounter (statuses as of 03/03/2022) [facility] History of Past illness Narrative* Problem Noted Date Resolved Date Visit for wound check 04/09/2012 06/25/2012 Chronic low back pain 10/01/2010 04/09/2015 Headache(784.0) 10/05/2007 11/07/2009 documented as of this encounter (statuses as of 03/11/2022) [address]20-2012 History of Past illness Narrative* Problem Noted Date Resolved Date Visit for wound check 04/09/2012 06/25/2012 Chronic low back pain 10/01/2010 04/09/2015 Headache(784.0) 10/05/2007 11/07/2009 documented as of this encounter (statuses as of 04/02/2022) [facility] Diagnosis GERD without esophagitis- Primary Esophageal reflux DDD (degenerative disc disease), lumbar Degeneration of lumbar or lumbosacral intervertebral disc Other migraine without status migrainosus, not intractable [facility] Other migraine without status migrainosus, not intractable [facility] Diagnosis DDD (degenerative disc disease), lumbar Degeneration of lumbar or lumbosacral intervertebral disc [facility] Diagnosis Arthralgia, unspecified joint- Primary DDD (degenerative disc disease), lumbar Degeneration of lumbar or lumbosacral intervertebral disc Headaches Dermatitis Contact dermatitis and other eczema, due to unspecified cause [facility]* Diagnosis DDD (degenerative disc disease), lumbar Degeneration of lumbar or lumbosacral intervertebral disc [facility]* Diagnosis Onset Date Resolution Status Contusion of left knee acute Contusion of right knee acut e Lumbar strain acute Strain of right hip acute Strain of right knee acute [facility] Work Phone: Evaluation note* Diagnosis DDD (degenerative disc disease), lumbar- Primary Degeneration of lumbar or lumbosacral intervertebral disc Arthralgia, unspecified joint Other migraine without status migrainosus, not intractable Headaches Postlaminectomy syndrome Postlaminectomy syndrome, unspecified region Moderate major depression, single episode ([facility]) Major depressive disorder, single episode, moderate GERD without esophagitis Esophageal reflux Sprain of left wrist, subsequent encounter Iliotibial band syndrome affecting lower leg, right [facility] Diagnosis Other migraine without status migrainosus, not intractable [facility] Diagnosis Other migraine without status migrainosus, not intractable [facility] Diagnosis DDD (degenerative disc disease), lumbar Degeneration of lumbar or lumbosacral intervertebral disc [facility] Diagnosis Adjustment disorder with anxious mood- Primary Adjustment disorder with anxiety GERD without esophagitis Esophageal reflux Postlaminectomy syndrome Postlaminectomy syndrome, unspecified region Other migraine without status migrainosus, not intractable [facility] Diagnosis DDD (degenerative disc disease), lumbar Degeneration of lumbar or lumbosacral intervertebral disc [facility] Diagnosis Onset Date Resolution Status UTI (urinary tract infection) acute [facility] Work Phone: Evaluation note* Diagnosis DDD (degenerative disc disease), lumbar Degeneration of lumbar or lumbosacral intervertebral disc [facility] Diagnosis Onset Date Resolution Status UTI (urinary tract infection) acute Impingement syndrome of right shoulder acute Lightheadedness acute Palpitations acute SOB (shortness of breath) ac minto Hypertension chronic [facility] Work Phone: Evaluation note* Diagnosis Other migraine without status migrainosus, not intractable- Primary GERD without esophagitis Esophageal reflux Adjustment disorder with anxious mood Adjustment disorder with anxiety Postlaminectomy syndrome Postlaminectomy syndrome, unspecified region Primary hypertension Unspecified essential hypertension Screening breast examination Breast screening, unspecified [facility] Diagnosis DDD (degenerative disc disease), lumbar Degeneration of lumbar or lumbosacral intervertebral disc [facility] Diagnosis Onset Date Resolution Status UTI (urinary tract infection) acute Impingement syndrome of right shoulder acute Lightheadedness acute Palpitations acute SOB (shortness of breath) ac [place]into Hypertension chronic Closed fracture of lateral portion of tibial plateau acute [facility] Work Phone: Evaluation note* Diagnosis Anxiety- Primary Anxiety state, unspecified Postlaminectomy syndrome Postlaminectomy syndrome, unspecified region Other migraine without status migrainosus, not intractable Primary hypertension Unspecified essential hypertension GERD without esophagitis Esophageal reflux [facility]* Diagnosis Other migraine without status migrainosus, not intractable [facility]* Diagnosis Postlaminectomy syndrome- Primary Postlaminectomy syndrome, unspecified region GERD without esophagitis Esophageal reflux Adjustment disorder with anxious mood Adjustment disorder with anxiety [facility]* Diagnosis Onset Date Resolution Status Closed fracture of lateral portion of tibial plateau acute Closed fracture of lateral portion of tibial plateau acute Closed fracture of lateral portion of tibial plateau acute [facility] Work Phone: Evaluation note* Diagnosis Other migraine without status migrainosus, not intractable DDD (degenerative disc disease), lumbar Degeneration of lumbar or lumbosacral intervertebral disc [facility]* Diagnosis DDD (degenerative disc disease), lumbar Degeneration of lumbar or lumbosacral intervertebral disc [facility] Diagnosis Primary hypertension- Primary Unspecified essential hypertension GERD without esophagitis Esophageal reflux Moderate major depression, single episode (HCC) Major depressive disorder, single episode, moderate Anxiety Anxiety state, unspecified Chronic insomnia Insomnia, unspecified Postlaminectomy syndrome Postlaminectomy syndrome, unspecified region Arthralgia, unspecified joint Other migraine without status migrainosus, not intractable [facility]* Diagnosis Postlaminectomy syndrome- Primary Postlaminectomy syndrome, unspecified region Other migraine without status migrainosus, not intractable Primary hypertension Unspecified essential hypertension Medication monitoring encounter Encounter for therapeutic drug monitoring documented in this encounter [facility] note* Diagnosis Other migraine without status migrainosus, not intractable [facility]* Diagnosis DDD (degenerative disc disease), lumbar Degeneration of lumbar or lumbosacral intervertebral disc [facility]* Diagnosis Other migraine without status migrainosus, not intractable- Primary Basal cell carcinoma (BCC), unspecified site Postlaminectomy syndrome Postlaminectomy syndrome, unspecified region Anxiety Anxiety state, unspecified History of colonic polyps Personal history of colonic polyps [facility]* Diagnosis DDD (degenerative disc disease), lumbar Degeneration of lumbar or lumbosacral intervertebral disc [facility] Diagnosis Left arm pain- Primary Pain in limb [facility]* Diagnosis Acute neck pain- Primary Cervicalgia Pain of left scapula Disorder of bone and cartilage, unspecified [facility]* Diagnosis Neck pain- Primary Cervicalgia DDD (degenerative disc disease), lumbar Degeneration of lumbar or lumbosacral intervertebral disc Radicular pain in left arm Neuralgia, neuritis, and radiculitis, unspecified Acute left-sided thoracic back pain Screening breast examination Breast screening, unspecified [facility]* Diagnosis Screening breast examination Breast screening, unspecified documented in this encounter [facility] note* Diagnosis Neck pain- Primary Cervicalgia Radicular pain in left arm Neuralgia, neuritis, and radiculitis, unspecified Acute left-sided thoracic back pain [facility]* Diagnosis DDD (degenerative disc disease), lumbar Degeneration of lumbar or lumbosacral intervertebral disc [facility] Diagnosis Other migraine without status migrainosus, not intractable- Primary DDD (degenerative disc disease), lumbar Degeneration of lumbar or lumbosacral intervertebral disc Basal cell carcinoma (BCC), unspecified site Postlaminectomy syndrome Postlaminectomy syndrome, unspecified region Anxiety Anxiety state, unspecified [facility]* Diagnosis DDD (degenerative disc disease), lumbar Degeneration of lumbar or lumbosacral intervertebral disc [facility] Diagnosis Other migraine without status migrainosus, not intractable [facility]* Diagnosis DDD (degenerative disc disease), lumbar Degeneration of lumbar or lumbosacral intervertebral disc [facility] Diagnosis Postlaminectomy syndrome- Primary Postlaminectomy syndrome, unspecified region Basal cell carcinoma (BCC), unspecified site Anxiety Anxiety state, unspecified Other migraine without status migrainosus, not intractable [facility] Diagnosis Adjustment disorder with anxious mood Adjustment disorder with anxiety DDD (degenerative disc disease), lumbar Degeneration of lumbar or lumbosacral intervertebral disc [facility] Diagnosis GERD without esophagitis Esophageal reflux [facility] Diagnosis DDD (degenerative disc disease), lumbar Degeneration of lumbar or lumbosacral intervertebral disc [facility]* Diagnosis Gastroesophageal reflux disease without esophagitis- Primary Esophageal reflux Basal cell carcinoma (BCC), unspecified site Postlaminectomy syndrome Postlaminectomy syndrome, unspecified region Other migraine without status migrainosus, not intractable Medication monitoring encounter Encounter for therapeutic drug monitoring [facility] Diagnosis Urinary frequency- Primary [facility] Diagnosis Generalized abdominal pain- Primary Abdominal pain, generalized Hematuria, unspecified type Dysuria Nausea Nausea alone Generalized abdominal pain Abdominal pain, generalized Nausea Nausea alone [facility] Diagnosis Generalized abdominal pain Abdominal pain, generalized Nausea Nausea alone [facility] Diagnosis Liver lesion- Primary Other specified disorders of liver Ovarian cyst, left Other and unspecified ovarian cyst Nabothian cyst Cervicitis and endocervicitis Fibroid Leiomyoma of uterus, unspecified Bilirubin in urine Biliuria [facility]* Diagnosis DDD (degenerative disc disease), lumbar Degeneration of lumbar or lumbosacral intervertebral disc Other migraine without status migrainosus, not intractable [facility] Diagnosis Other migraine without status migrainosus, not intractable [facility] Diagnosis Ovarian cyst, left Other and unspecified ovarian cyst Nabothian cyst Cervicitis and endocervicitis Fibroid Leiomyoma of uterus, unspecified [facility] Diagnosis DDD (degenerative disc disease), lumbar Degeneration of lumbar or lumbosacral intervertebral disc [facility] Diagnosis Other migraine without status migrainosus, not intractable- Primary Screening for depression Basal cell carcinoma (BCC), unspecified site Postlaminectomy syndrome Postlaminectomy syndrome, unspecified region Anxiety Anxiety state, unspecified Medication monitoring encounter Encounter for therapeutic drug monitoring Mixed hyperlipidemia Weight gain Abnormal weight gain Screening breast examination Breast screening, unspecified DDD (degenerative disc disease), lumbar Degeneration of lumbar or lumbosacral intervertebral disc [facility] Diagnosis Gastroesophageal reflux disease without esophagitis Esophageal reflux [facility] Diagnosis Acute left-sided thoracic back pain [facility] Diagnosis Acute neck pain Cervicalgia Radicular pain Neuralgia, neuritis, and radiculitis, unspecified [facility]* Diagnosis DDD (degenerative disc disease), lumbar Degeneration of lumbar or lumbosacral intervertebral disc [facility] Diagnosis Sprain of left wrist, subsequent encounter [facility] Diagnosis Pain of right lower extremity- Primary Other migraine without status migrainosus, not intractable Degeneration of intervertebral disc of lumbar region, unspecified whether pain present Postlaminectomy syndrome Postlaminectomy syndrome, unspecified region Anxiety Anxiety state, unspecified [facility] Diagnosis Pain of right lower extremity [facility] Diagnosis DDD (degenerative disc disease), lumbar Degeneration of lumbar or lumbosacral intervertebral disc [facility] Diagnosis Intractable chronic migraine with aura and without status migrainosus- Primary [facility] Diagnosis Pain- Primary Generalized pain Nausea Nausea alone Pain Generalized pain [facility] Diagnosis Pain Generalized pain [facility] Diagnosis Encounter for gynecological examination (general) (routine) without abnormal findings- Primary Screening for cervical cancer Screening for malignant neoplasm of the cervix Encounter for screening for human papillomavirus (HPV) Special screening examination for human papillomavirus (HPV) Encounter for screening mammogram for breast cancer [facility] Diagnosis DDD (degenerative disc disease), lumbar Degeneration of lumbar or lumbosacral intervertebral disc [facility]* Diagnosis Gastroesophageal reflux disease without esophagitis Esophageal reflux documented in this encounter [facility] note* Diagnosis Gastroesophageal reflux disease without esophagitis Esophageal reflux documented in this encounter [facility] note* Diagnosis Screening breast examination Breast screening, unspecified [facility]* Diagnosis DDD (degenerative disc disease), lumbar Degeneration of lumbar or lumbosacral intervertebral disc [facility] Diagnosis Intractable chronic migraine with aura and without status migrainosus- Primary [facility] [facility]* Diagnosis Other migraine without status migrainosus, not intractable- Primary Primary hypertension Unspecified essential hypertension Postlaminectomy syndrome Postlaminectomy syndrome, unspecified region Basal cell carcinoma (BCC), unspecified site Anxiety Anxiety state, unspecified [facility] Diagnosis Intractable chronic migraine with aura and without status migrainosus- Primary [facility]* Diagnosis Intractable chronic migraine with aura and without status migrainosus- Primary [facility] Diagnosis Primary hypertension- Primary Unspecified essential hypertension Basal cell carcinoma (BCC), unspecified site Other migraine without status migrainosus, not intractable Postlaminectomy syndrome Postlaminectomy syndrome, unspecified region Acute left-sided thoracic back pain Anxiety Anxiety state, unspecified Degeneration of intervertebral disc of lumbar region, unspecified whether pain present [facility]* Diagnosis Gastroesophageal reflux disease without esophagitis Esophageal reflux DDD (degenerative disc disease), lumbar Degeneration of lumbar or lumbosacral intervertebral disc [facility] Diagnosis Migraine with aura, not intractable, without status migrainosus- Primary [facility] Diagnosis Other migraine without status migrainosus, not intractable [facility]* Diagnosis Primary hypertension- Primary Unspecified essential hypertension History of colonic polyps Personal history of colonic polyps Other migraine without status migrainosus, not intractable Basal cell carcinoma (BCC), unspecified site Anxiety Anxiety state, unspecified Adjustment disorder with anxious mood Adjustment disorder with anxiety [facility]* Diagnosis Screen for colon cancer- Primary Special screening for malignant neoplasms, colon History of colonic polyps Personal history of colonic polyps documented in this encounter [facility] note* Diagnosis Intractable chronic migraine with aura and without status migrainosus- Primary documented in this encounter [facility] note* Diagnosis Other migraine without status migrainosus, not intractable documented in this encounter [facility] note* Diagnosis Encounter for screening colonoscopy- Primary Special screening for malignant neoplasms, colon History of colonic polyps Personal history of colonic polyps Screen for colon cancer Special screening for malignant neoplasms, colon documented in this encounter [facility] note* Diagnosis DDD (degenerative disc disease), lumbar Degeneration of lumbar or lumbosacral intervertebral disc documented in this encounter [facility] note* Diagnosis Other migraine without status migrainosus, not intractable- Primary Primary hypertension Unspecified essential hypertension Basal cell carcinoma (BCC), unspecified site Postlaminectomy syndrome Postlaminectomy syndrome, unspecified region Gastro-esophageal reflux disease without esophagitis Esophageal reflux documented in this encounter [facility] note* Diagnosis Other migraine without status migrainosus, not intractable [facility] Diagnostic Procedure Only (Routine) - Closed Specialty Diagnoses / Procedures Referred By Jason shin Referred To Contact XR IMAGING Diagnoses Sprain of left wrist, subsequent encounter Procedures XR WRIST GENERAL 3V PA/LAT/OBL LEFT RADEX WRIST COMPLETE MINIMUM 3 VIEWS John Pfeiffer PA-C [address] [place] [address] Xr Imaging Referral ID Status Reason Start Date Expiration Date V isits Requested Visits Authorized [id number] Closed Auto-Generate d Referral 05/19/2022 06/18/2023 1 1 [facility] for referral (narrative)* Diagnostic Procedure Only (Routine) - Pending Review Specialty Diagnoses / Procedures Referred By Jason shin Referred To Contact BR IMAGING Diagnoses Screening breast examination Procedures SKY SCREENING W NICOLA SCREENING DIGITAL BREAST TOMOSYNTHESIS BI SCREENING MAMMOGRAPHY BI 2-VIEW BREAST INC CAD Jacek Scruggs MD [address] [place] [address] Br Imaging [address] [place] [address] Referral ID Status Reason Start Date Expiration Date Visits Requested Visits Authorized [id number] Pending Review Auto-Generat ed Referral 10/14/2022 11/13/2023 1 1 [facility] for referral (narrative)* Diagnostic Procedure Only (Urgent) - Closed Specialty Diagnoses / Procedures Referred By Contac t Referred To Contact XR IMAGING Diagnoses Acute neck pain Pain of left scapula Procedures XR CERV OTHER 4V AP/LAT/OBL RADEX SPINE CERVICAL 4 OR 5 VIEWS Rhea Ayala APRN.CNP [address] [place] [address] Xr Imaging [facility] Referral ID Status Reason Start Date Expiration Date V isits Requested Visits Authorized [id number] Closed Auto-Generate d Referral 07/25/2023 08/23/2024 1 1 [facility] for referral (narrative)* Diagnostic Procedure Only (Routine) - Authorized Specialty Diagnoses / Procedures Referred By Contac t Referred To Contact BR IMAGING Diagnoses Screening breast examination Procedures SKY SCREENING W NICOLA SCREENING DIGITAL BREAST TOMOSYNTHESIS BI SCREENING MAMMOGRAPHY BI 2-VIEW BREAST INC Jacek Nicholson MD [address] [place] [address] Br Imaging [address] [place] [address] Referral ID Status Reason Start Date Expiration Date Visits Requested Visits Authorized [id number] Authorized Auto-Generat ed Referral 09/01/2024 1 1 * Diagnostic Procedure Only (Routine) - Pending Review Specialty Diagnoses / Procedures Referred By Contac t Referred To Contact BR IMAGING Diagnoses Screening breast examination Procedures SKY SCREENING SCREENING MAMMOGRAPHY BI 2-VIEW BREAST INC Jacek Nicholson MD [address] [place] [address] [facility] [address] [place] [address] Referral ID Status Reason Start Date Expiration Date Visits Requested Visits Authorized [id number] Pending Review Auto-Generat ed Referral 3 09/01/2024 1 1 * Diagnostic Procedure Only (Routine) - Closed Specialty Diagnoses / Procedures Referred By Contac t Referred To Contact XR IMAGING Diagnoses Acute left-sided thoracic back pain Procedures XR THORACIC GENERAL 3V AP/LAT/SWIMMERS RADEX SPINE THORACIC 3 VIEWS Jacek Scruggs MD [address] [place] [address] [place] [address] Referral ID Status Reason Start Date Expiration Date V isits Requested Visits Authorized [id number] Closed Auto-Generate d Referral 08/03/2023 09/01/2024 1 1 * Physical Therapy (Routine) - Pending Review Specialty Diagnoses / Procedures Referred By Contac t Referred To Contact [facility] Diagnoses Neck pain Radicular pain in left arm Acute left-sided thoracic back pain Procedures CONSULT TO PHYSICAL THERAPY PHYSICAL THERAPY EVALUATION HIGH COMPLEX 45 MINS Jacek Scruggs MD [address] [place] [address] [facility] [address] [place] [address] Referral ID Status Reason Start Date Expiration Date Visits Requested Visits Authorized [id number] Pending Review Auto-Generat ed Referral 3 08/02/2024 1 1 [facility] Diagnostic Procedure Only (Urgent) - Waiting for Response Specialty Diagnoses / Procedures Referred By Contac t Referred To Contact CT IMAGING Diagnoses Generalized abdominal pain Nausea Procedures CT ABD/PEL W IVCON CT ABD & PELVIS W/CONTRAST Madelaine Tomlinson, 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 [address] [place] [address] [place] [address] Referral ID Status Reason Start Date Expiration Date Visits Requested Visits Authorized [id number] Waiting for Response Auto-Genera [place] Referral Patient Cleared - Admin/Chair man/Directo r advise to proceed or did not respond 03/07/2024 04/06/2025 2 2 [facility] for referral (narrative)* Diagnostic Procedure Only (Urgent) - Waiting for Response Specialty Diagnoses / Procedures Referred By Contac t Referred To Contact CT IMAGING Diagnoses Generalized abdominal pain Nausea Procedures CT ABD/PEL W IVCON CT ABD & PELVIS W/CONTRAST Madelaine Tomlinson APRN.SCHOOL TRANSPORTATION SUPERVISOR [address] [place] [address] [place] [address] Referral ID Status Reason Start Date Expiration Date Visits Requested Visits Authorized [id number] Waiting for Response Auto-Genera [place] Referral Patient Cleared - Admin/Chair man/Directo r advise to proceed or did not respond 03/07/2024 04/06/2025 2 2 [facility] for referral (narrative)* Diagnostic Procedure Only (Routine) - Authorized Specialty Diagnoses / Procedures Referred By Contac t Referred To Contact US IMAGING Diagnoses Ovarian cyst, left Nabothian cyst Fibroid Procedures US FEMALE PELVIS TRANSVAG US TRANSVAGINAL Madelaine Tomlnison APRN.SCHOOL TRANSPORTATION SUPERVISOR [address] [place] [address] [place] [address] Referral ID Status Reason Start Date Expiration Date Visits Requested Visits Authorized [id number] Authorized Auto-Generat ed Referral 03/08/2024 04/07/2025 1 1 * Diagnostic Procedure Only (Routine) - Pending Review Specialty Diagnoses / Procedures Referred By Contac t Referred To Contact US IMAGING Diagnoses Liver lesion Procedures US ABD RIGHT UPPER QUADRANT US ABDOMINAL REAL TIME W/IMAGE LIMITED Madelaine Tomlinson APRN.SCHOOL TRANSPORTATION SUPERVISOR [address] [place] [address] [place] [address] Referral ID Status Reason Start Date Expiration Date Visits Requested Visits Authorized [id number] Pending Review Auto-Generat ed Referral 04/07/2025 1 1 [facility] for referral (narrative)* Diagnostic Procedure Only (Routine) - Closed Specialty Diagnoses / Procedures Referred By Contac t Referred To Contact XR IMAGING Diagnoses Acute left-sided thoracic back pain Procedures XR THORACIC GENERAL 3V AP/LAT/SWIMMERS RADEX SPINE THORACIC 3 VIEWS Jacek Scruggs MD [address] [place] [address] [place] [address] Referral ID Status Reason Start Date Expiration Date V isits Requested Visits Authorized [id number] Closed Auto-Generate d Referral 08/03/2023 09/01/2024 1 1 [facility] for referral (narrative)* Diagnostic Procedure Only (Urgent) - Closed Specialty Diagnoses / Procedures Referred By Contac t Referred To Contact XR IMAGING Diagnoses Acute neck pain Pain of left scapula Procedures XR CERV OTHER 4V AP/LAT/OBL RADEX SPINE CERVICAL 4 OR 5 VIEWS Rhea Nayak APRN.SCHOOL TRANSPORTATION SUPERVISOR [address] [place] [address] [place] [address] Referral ID Status Reason Start Date Expiration Date V isits Requested Visits Authorized [id number] Closed Auto-Generate d Referral 07/25/2023 08/23/2024 1 1 [facility] for referral (narrative)* Diagnostic Procedure Only (Routine) - Closed Specialty Diagnoses / Procedures Referred By Contac t Referred To Contact XR IMAGING Diagnoses Sprain of left wrist, subsequent encounter Procedures XR WRIST GENERAL 3V PA/LAT/OBL LEFT RADEX WRIST COMPLETE MINIMUM 3 VIEWS John Pfeiffer PA-C [address] [place] [address] [place] [address] Referral ID Status Reason Start Date Expiration Date V isits Requested Visits Authorized [id number] Closed Auto-Generate d Referral 05/19/2022 06/18/2023 1 1 [facility] for referral (narrative)* Diagnostic Procedure Only (Routine) - Closed Specialty Diagnoses / Procedures Referred By Contac t Referred To Contact XR IMAGING Diagnoses Pain of right lower extremity Procedures XR TIBIA FIBULA 2V AP/LAT RIGHT RADIOLOGIC EXAMINATION TIBIA & FIBULA 2 VIEWS Jacek Scruggs MD [address] [place] [id number] [place] [address] Referral ID Status Reason Start Date Expiration Date V isits Requested Visits Authorized [id number] Closed Auto-Generate d Referral 07/04/2024 08/03/2025 1 1 * Medication Prior Authorization - Pending Review Specialty Diagnoses / Procedures Referred By Contac t Referred To Contact Diagnoses DDD (degenerative disc disease), lumbar Jacek Scruggs MD [address] [place] [address] Referral ID Status Reason Start Date Expiration Date V isits Requested Visits Authorized [id number] Pending Review 1 1 [facility] for referral (narrative)* Outpatient Procedure (Urgent) - New Request Specialty Diagnoses / Procedures Referred By Contac t Referred To Contact [facility] Diagnoses Nausea Procedures ECG COMPLETE ECG ROUTINE ECG W/LEAST 12 LDS W/I&R Dillon Kim APRN.BOONE [address] [place] [address] [facility] [address] [place] [address] Referral ID Status Reason Start Date Expiration Date Visits Requested Visits Authorized [id number] New Request Auto-Generat ed Referral 07/28/2024 07/28/2025 1 1 * Diagnostic Procedure Only (Urgent) - Closed Specialty Diagnoses / Procedures Referred By Contac t Referred To Contact XR IMAGING Diagnoses Pain Procedures XR SACRUM/COCCYX 3V AP/LAT RADEX SACRUM & COCCYX MINIMUM 2 VIEWS Dillon Kim APRN.SCHOOL TRANSPORTATION SUPERVISOR [address] [place] [address] [place] [address] Referral ID Status Reason Start Date Expiration Date V isits Requested Visits Authorized [id number] Closed Auto-Generate d Referral 07/28/2024 08/27/2025 1 1 * Diagnostic Procedure Only (Urgent) - Closed Specialty Diagnoses / Procedures Referred By Contac t Referred To Contact XR IMAGING Diagnoses Pain Procedures XR LUMBAR GENERAL 3V AP/LAT/L5-S1 RADEX SPINE LUMBOSACRAL 2/3 VIEWS Dillon Kim APRN.SCHOOL TRANSPORTATION SUPERVISOR [address] [place] [address] [place] [address] Referral ID Status Reason Start Date Expiration Date V isits Requested Visits Authorized [id number] Closed Auto-Generate d Referral 07/28/2024 08/27/2025 1 1 [facility] for referral (narrative)* Diagnostic Procedure Only (Urgent) - Closed Specialty Diagnoses / Procedures Referred By Contac t Referred To Contact XR IMAGING Diagnoses Pain Procedures XR SACRUM/COCCYX 3V AP/LAT RADEX SACRUM & COCCYX MINIMUM 2 VIEWS Dillon Kim APRN.SCHOOL TRANSPORTATION SUPERVISOR [address] [place] [address] [place] [address] Referral ID Status Reason Start Date Expiration Date V isits Requested Visits Authorized [id number] Closed Auto-Generate d Referral 07/28/2024 08/27/2025 1 1 * Diagnostic Procedure Only (Urgent) - Closed Specialty Diagnoses / Procedures Referred By Contac t Referred To Contact XR IMAGING Diagnoses Pain Procedures XR LUMBAR GENERAL 3V AP/LAT/L5-S1 RADEX SPINE LUMBOSACRAL 2/3 VIEWS Dillon Kim APRN.CNP [address] [place] [address] [place] [address] Referral ID Status Reason Start Date Expiration Date V isits Requested Visits Authorized [id number] Closed Auto-Generate d Referral 07/28/2024 08/27/2025 1 1 [facility] for referral (narrative)* Diagnostic Procedure Only (Routine) - Authorized Specialty Diagnoses / Procedures Referred By Contac t Referred To Contact BR IMAGING Diagnoses Encounter for screening mammogram for breast cancer Procedures SKY SCREENING W NICOLA SCREENING DIGITAL BREAST TOMOSYNTHESIS BI SCREENING MAMMOGRAPHY BI 2-VIEW BREAST INC Judith Ruvalcaba, ANITA.SCHOOL TRANSPORTATION SUPERVISOR [address] [place] [address] [facility] Imaging [address] [place] [address] Referral ID Status Reason Start Date Expiration Date Visits Requested Visits Authorized [id number] Authorized Auto-Generat ed Referral 09/02/2025 1 1 [facility] for visit Narrative* Diagnostic Procedure Only (Routine) - Closed Specialty Diagnoses / Procedures Referred By Contac t Referred To Contact BR IMAGING Diagnoses Screening breast examination Procedures SKY SCREENING W NICOLA SCREENING DIGITAL BREAST TOMOSYNTHESIS BI SCREENING MAMMOGRAPHY BI 2-VIEW BREAST INC CAD Jacek Scruggs MD [address] [place] [address] [facility] Imaging [address] [place] [address] Referral ID Status Reason Start Date Expiration Date V isits Requested Visits Authorized [id number] Closed Auto-Generate d Referral 08/03/2023 09/01/2024 1 1 [facility] for visit Narrative* Diagnostic Procedure Only (Urgent) - Waiting for Response Specialty Diagnoses / Procedures Referred By Contac t Referred To Contact CT IMAGING Diagnoses Generalized abdominal pain Nausea Procedures CT ABD/PEL W IVCON CT ABD & PELVIS W/CONTRAST Madelaine Tolminson, 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 [address] [place] [address] [place] [address] Referral ID Status Reason Start Date Expiration Date Visits Requested Visits Authorized [id number] Waiting for Response Auto-Genera [place] Referral Patient Cleared - Admin/Chair man/Directo r advise to proceed or did not respond 03/07/2024 04/06/2025 2 2 [facility] for visit Narrative* Diagnostic Procedure Only (Routine) - Closed Specialty Diagnoses / Procedures Referred By Contac t Referred To Contact US IMAGING Diagnoses Ovarian cyst, left Nabothian cyst Fibroid Procedures US FEMALE PELVIS TRANSVAG US TRANSVAGINAL Madelaine Tomlinson, 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 [address] [place] [address] [place] [address] Referral ID Status Reason Start Date Expiration Date V isits Requested Visits Authorized [id number] Closed Auto-Generate d Referral 03/08/2024 04/07/2025 1 1 [facility] for visit Narrative* Diagnostic Procedure Only (Routine) - Closed Specialty Diagnoses / Procedures Referred By Contac t Referred To Contact XR IMAGING Diagnoses Acute left-sided thoracic back pain Procedures XR THORACIC GENERAL 3V AP/LAT/SWIMMERS RADEX SPINE THORACIC 3 VIEWS Jacek Scruggs MD [address] [place] [address] [place] [address] Referral ID Status Reason Start Date Expiration Date V isits Requested Visits Authorized [id number] Closed Auto-Generate d Referral 08/03/2023 09/01/2024 1 1 [facility] for visit Narrative* Diagnostic Procedure Only (Urgent) - Closed Specialty Diagnoses / Procedures Referred By Contac t Referred To Contact XR IMAGING Diagnoses Acute neck pain Pain of left scapula Procedures XR CERV OTHER 4V AP/LAT/OBL RADEX SPINE CERVICAL 4 OR 5 VIEWS Rhea Nayak, 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 [address] [place] [address] [place] [address] Referral ID Status Reason Start Date Expiration Date V isits Requested Visits Authorized [id number] Closed Auto-Generate d Referral 07/25/2023 08/23/2024 1 1 [facility] for visit Narrative* Diagnostic Procedure Only (Routine) - Closed Specialty Diagnoses / Procedures Referred By Contac t Referred To Contact XR IMAGING Diagnoses Sprain of left wrist, subsequent encounter Procedures XR WRIST GENERAL 3V PA/LAT/OBL LEFT RADEX WRIST COMPLETE MINIMUM 3 VIEWS John Pfeiffer PA-C [address] [place] [address] [place] [address] Referral ID Status Reason Start Date Expiration Date V isits Requested Visits Authorized [id number] Closed Auto-Generate d Referral 05/19/2022 06/18/2023 1 1 [facility] for visit Narrative* Diagnostic Procedure Only (Routine) - Closed Specialty Diagnoses / Procedures Referred By Contac t Referred To Contact XR IMAGING Diagnoses Pain of right lower extremity Procedures XR TIBIA FIBULA 2V AP/LAT RIGHT RADIOLOGIC EXAMINATION TIBIA & FIBULA 2 VIEWS Jacek Scruggs MD [address] [place] [address] [place] [address] Referral ID Status Reason Start Date Expiration Date V isits Requested Visits Authorized [id number] Closed Auto-Generate d Referral 07/04/2024 08/03/2025 1 1 [facility] for visit Narrative* Diagnostic Procedure Only (Urgent) - Closed Specialty Diagnoses / Procedures Referred By Contac t Referred To Contact XR IMAGING Diagnoses Pain Procedures XR SACRUM/COCCYX 3V AP/LAT RADEX SACRUM & COCCYX MINIMUM 2 VIEWS Dillon Kim 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 [address] [place] [address] [place] [address] Referral ID Status Reason Start Date Expiration Date V isits Requested Visits Authorized [id number] Closed Auto-Generate d Referral 07/28/2024 08/27/2025 1 1 [facility] for visit Narrative* Diagnostic Procedure Only (Routine) - Closed Specialty Diagnoses / Procedures Referred By Contzeina t Referred To Contact [facility] IMAG[facility] Diagnoses Screening breast examination Procedures SKY SCREENING SCREENING MAMMOGRAPHY BI 2-VIEW BREAST INC CAD Jacek Scruggs MD [address] [place] [address] [facility] [address] [place] [address] Referral ID Status Reason Start Date Expiration Date V isits Requested Visits Authorized [id number] Closed Auto-Generate d Referral 08/03/2023 09/01/2024 1 1 [facility] for visit Narrative* Outpatient Procedure (Routine) - Closed Specialty Diagnoses / Procedures Referred By Jason shin Referred To Contact [facility] Diagnoses History of colonic polyps Screen for colon cancer Procedures COLONOSCOPY SCREENING COLONOSCOPY SCREENING COLONOSCOPY FLX DX W/COLLJ SPEC WHEN Quni Newman APRN.SCHOOL TRANSPORTATION SUPERVISOR [address] [place] [address] Phone: tel: fax: [facility] [address] [place] [address] Referral ID Status Reason Start Date Expiration Date V isits Requested Visits Authorized [id number] Closed Auto-Generate d Referral 02/17/2025 09/20/2025 1 1 [facility] Advance Directives No Advanced Directives Records FoundDocuments on File Type Date Recorded 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 Advance Directive(s) 11/26/2016 7:24 AM Advance Directive Response Recorded Date/ Time Living Will No April 28, 2022 3:47pm Power of Palliative Medicine Physician No April 28 3:47pm Advance Directive Response Recorded Date/ Time Living Will No April 28, 2022 2:47pm Power of Palliative Medicine Physician No April 28 2:47pm Advance Directive Response Recorded Date/ Time Living Will No September 01 12:27pm Power of Palliative Medicine Physician No September 01, 2022 12:27pm Advance Directive Response Recorded Date/ Time Living Will No October 26 3:26pm Power of Palliative Medicine Physician No October 26, 2022 3:26pm Advance Directive Response Recorded Date/ Time Living Will No October 26 4:26pm Power of Palliative Medicine Physician No October 26, 2022 4:26pm Chief Complaint and Reason for Visit Chief Complaint 1 M FU HEAD INJURY Reason for Visit Contusion of left kn ee Contusion of right knee Lumbar strain Strain of right hip Strain of right knee Chief Complaint HEAD INJURY CONCERN FOR UTI Reason for Visit UTI (urinary tract i nfection) Chief Complaint CONCERN FOR UTI Right shoulder Room 3 PER MMM / TOP POLISHER E ORDER HYPERTENSION Reason for Visit UTI (urinary tract i nfection) Impingement syndrome of right shoulder Lightheadedness Palpitations SOB (shortness of breath) Hypertension Chief Complaint CONCERN FOR UTI Right shoulder Room 3 PER MMM / TOP POLISHER E ORDER HYPERTENSION right knee Reason for Visit UTI (urinary tract i nfection) Impingement syndrome of right shoulder Lightheadedness Palpitations SOB (shortness of breath) Hypertension Chief Complaint CONCERN FOR UTI Right shoulder Room 3 PER MMM / TOP POLISHER E ORDER HYPERTENSION right knee RIGHT KNEE RIGHT KNEE INJURY RIGHT KNEE Reason for Visit UTI (urinary tract i nfection) Impingement syndrome of right shoulder Lightheadedness Palpitations SOB (shortness of breath) Hypertension Closed fracture of lateral portion of tibial plateau Chief Complaint right knee RIGHT KNEE RIGHT KNEE INJURY RIGHT KNEE RIGHT KNEE room 1 CLOSED DISPLACED FX LAT TIBIAL PLATEAU. RX JHERE RIGHT KNEE Room 2 Reason for Visit Closed fracture of l ateral portion of tibial plateau Closed fracture of lateral portion of tibial plateau Closed fracture of lateral portion of tibial plateau Family History No Family History Records Found Relationship Condition Age at Onset Recorded Date/T misael Not Specified Diabetes mellitus Unknown High blood cholesterol Unknown Arthritis Unknown Cardiac disease Unknown Malignant neoplasm of breast Unknown Hypertension Unknown Summary Purpose Reason for Referral Specialty Diagnoses / Procedures Referred By Jason shin Referred To Contact Diagnoses DDD (degenerative disc disease), lumbar Jacek Scruggs MD [address] [place] [address] Referral ID Status Reason Start Date Expiration Date Visits Re quested Visits Authorized [id number] Closed 1 1 Referral ID Status Reason Start Date Expiration Date Visits Re quested Visits Authorized [id number] Closed 1 1 Referral ID Status Reason Start Date Expiration Date Visits Re quested Visits Authorized [id number] Closed 1 1 Referral ID Status Reason Start Date Expiration Date V isits Requested Visits Authorized [id number] Pending Review 1 1 Specialty Diagnoses / Procedures Referred By Jason shin Referred To Contact [facility] Diagnoses Screening breast examination Procedures SKY SCREENING SCREENING MAMMOGRAPHY BI 2-VIEW BREAST INC CAD Bratenahl, Jacek J, MD [address] [place] [address] [facility] [address] [place] [address] Referral ID Status Reason Start Date Expiration Date Visits Requested Visits Authorized [id number] Authorized Auto-Generat ed Referral 05/02/2024 06/01/2025 1 1 Specialty Diagnoses / Procedures Referred By Contac t Referred To Contact Neurology Diagnoses Other migraine without status migrainosus, not intractable Procedures CONSULT TO NEUROLOGY OFFICE/OUTPATIENT [facility] 60 MINUTES Jacek Scruggs MD [address] [place] [address] Referral ID Status Reason Start Date Expiration Date Visits Requested Visits Authorized [id number] Authorized PCP Requested Referral 05/02/2024 05/02/2025 1 1 Referral ID Status Reason Start Date Expiration Date Visits Re quested Visits Authorized [id number] Closed 1 1 Specialty Diagnoses / Procedures Referred By Contac t Referred To Contact Diagnoses Intractable chronic migraine with aura and without status migrainosus Robyn Harris PA-C [address] [place] [address] Referral ID Status Reason Start Date Expiration Date V isits Requested Visits Authorized [id number] Pending Review 1 1 Referral ID Status Reason Start Date Expiration Date V isits Requested Visits Authorized [id number] Pending Review 1 1 Referral ID Status Reason Start Date Expiration Date Visits Re quested Visits Authorized [id number] Closed 1 1 Specialty Diagnoses / Procedures Referred By Contac t Referred To Contact Diagnoses Gastroesophageal reflux disease without esophagitis Jacek Scruggs MD [address] [place] [address] Referral ID Status Reason Start Date Expiration Date V isits Requested Visits Authorized [id number] Pending Review 1 1 Referral ID Status Reason Start Date Expiration Date V isits Requested Visits Authorized [id number] Pending Review 1 1 Medications Administered Section Inactive Administered Medications - up to 3 most recent administrations Medication Order MAR Action Action Date Dose Rate Site keTORolac 60 mg injection (Toradol) 60 mg, INTRAMUSCULAR, ONCE, 1 dose, On 07/25/23 at 0900, Ketorolac (Toradol) is indicated for the short-term (up to 5 days) management of moderately severe acute pain. Continuation of ketorolac (Toradol) beyond 5 days increases the risk of developing serious adverse events. Please verify the duration of therapy for ketorolac (Toradol)., If ordered PRN for pain, patient/guardian may elect to receive this medication for higher pain levels INSTEAD of the opioid, if preferred: Yes Given 07/25/2023 9:07 AM EDT 60 mg Buttocks, Right Additional Source Comments Source Comments (unrecognize d section and content) In the event this informatio n is protected by the Federal Confidentiality of Alcohol and Drug Abuse Patient Records regulations: The Federal rules restrict any use of the information to criminally investigate or prosecute any alcohol or drug abuse patient.[facility] the event this information is protected by the Federal Confidentiality of Alcohol and Drug Abuse Patient Records regulations: The Federal rules restrict any use of the information to criminally investigate or prosecute any alcohol or drug abuse patient.[facility]In the event this information is protected by the Federal Confidentiality of Alcohol and Drug Abuse Patient Records regulations: The Federal rules restrict any use of the information to criminally investigate or prosecute any alcohol or drug abuse patient.[facility]In the event this information is protected by the Federal Confidentiality of Alcohol and Drug Abuse Patient Records regulations: The Federal rules restrict any use of the information to criminally investigate or prosecute any alcohol or drug abuse patient.[facility]In the event this information is protected by the Federal Confidentiality of Alcohol and Drug Abuse Patient Records regulations: The Federal rules restrict any use of the information to criminally investigate or prosecute any alcohol or drug abuse patient.[facility]In the event this information is protected by the Federal Confidentiality of Alcohol and Drug Abuse Patient Records regulations: The Federal rules restrict any use of the information to criminally investigate or prosecute any alcohol or drug abuse patient.[facility] HospitalIn the event this information is protected by the Federal Confidentiality of Alcohol and Drug Abuse Patient Records regulations: The Federal rules restrict any use of the information to criminally investigate or prosecute any alcohol or drug abuse patient.[facility] HospitalIn the event this information is protected by the Federal Confidentiality of Alcohol and Drug Abuse Patient Records regulations: The Federal rules restrict any use of the information to criminally investigate or prosecute any alcohol or drug abuse patient.[facility] HospitalIn the event this information is protected by the Federal Confidentiality of Alcohol and Drug Abuse Patient Records regulations: The Federal rules restrict any use of the information to criminally investigate or prosecute any alcohol or drug abuse patient.[facility]In the event this information is protected by the Federal Confidentiality of Alcohol and Drug Abuse Patient Records regulations: The Federal rules restrict any use of the information to criminally investigate or prosecute any alcohol or drug abuse patient.[facility] HospitalIn the event this information is protected by the Federal Confidentiality of Alcohol and Drug Abuse Patient Records regulations: The Federal rules restrict any use of the information to criminally investigate or prosecute any alcohol or drug abuse patient.[facility] HospitalIn the event this information is protected by the Federal Confidentiality of Alcohol and Drug Abuse Patient Records regulations: The Federal rules restrict any use of the information to criminally investigate or prosecute any alcohol or drug abuse patient.[facility] HospitalIn the event this information is protected by the Federal Confidentiality of Alcohol and Drug Abuse Patient Records regulations: The Federal rules restrict any use of the information to criminally investigate or prosecute any alcohol or drug abuse patient.[facility] HospitalIn the event this information is protected by the Federal Confidentiality of Alcohol and Drug Abuse Patient Records regulations: The Federal rules restrict any use of the information to criminally investigate or prosecute any alcohol or drug abuse patient.[facility] HospitalIn the event this information is protected by the Federal Confidentiality of Alcohol and Drug Abuse Patient Records regulations: The Federal rules restrict any use of the information to criminally investigate or prosecute any alcohol or drug abuse patient.[facility] HospitalIn the event this information is protected by the Federal Confidentiality of Alcohol and Drug Abuse Patient Records regulations: The Federal rules restrict any use of the information to criminally investigate or prosecute any alcohol or drug abuse patient.[facility] HospitalIn the event this information is protected by the Federal Confidentiality of Alcohol and Drug Abuse Patient Records regulations: The Federal rules restrict any use of the information to criminally investigate or prosecute any alcohol or drug abuse patient.[facility] HospitalIn the event this information is protected by the Federal Confidentiality of Alcohol and Drug Abuse Patient Records regulations: The Federal rules restrict any use of the information to criminally investigate or prosecute any alcohol or drug abuse patient.[facility] HospitalIn the event this information is protected by the Federal Confidentiality of Alcohol and Drug Abuse Patient Records regulations: The Federal rules restrict any use of the information to criminally investigate or prosecute any alcohol or drug abuse patient.[facility] HospitalIn the event this information is protected by the Federal Confidentiality of Alcohol and Drug Abuse Patient Records regulations: The Federal rules restrict any use of the information to criminally investigate or prosecute any alcohol or drug abuse patient.[facility] HospitalIn the event this information is protected by the Federal Confidentiality of Alcohol and Drug Abuse Patient Records regulations: The Federal rules restrict any use of the information to criminally investigate or prosecute any alcohol or drug abuse patient.[facility] HospitalIn the event this information is protected by the Federal Confidentiality of Alcohol and Drug Abuse Patient Records regulations: The Federal rules restrict any use of the information to criminally investigate or prosecute any alcohol or drug abuse patient.[facility] HospitalIn the event this information is protected by the Federal Confidentiality of Alcohol and Drug Abuse Patient Records regulations: The Federal rules restrict any use of the information to criminally investigate or prosecute any alcohol or drug abuse patient.[facility] HospitalIn the event this information is protected by the Federal Confidentiality of Alcohol and Drug Abuse Patient Records regulations: The Federal rules restrict any use of the information to criminally investigate or prosecute any alcohol or drug abuse patient.[facility] HospitalIn the event this information is protected by the Federal Confidentiality of Alcohol and Drug Abuse Patient Records regulations: The Federal rules restrict any use of the information to criminally investigate or prosecute any alcohol or drug abuse patient.[facility] HospitalIn the event this information is protected by the Federal Confidentiality of Alcohol and Drug Abuse Patient Records regulations: The Federal rules restrict any use of the information to criminally investigate or prosecute any alcohol or drug abuse patient.[facility] HospitalIn the event this information is protected by the Federal Confidentiality of Alcohol and Drug Abuse Patient Records regulations: The Federal rules restrict any use of the information to criminally investigate or prosecute any alcohol or drug abuse patient.[facility] HospitalIn the event this information is protected by the Federal Confidentiality of Alcohol and Drug Abuse Patient Records regulations: The Federal rules restrict any use of the information to criminally investigate or prosecute any alcohol or drug abuse patient.[facility] HospitalIn the event this information is protected by the Federal Confidentiality of Alcohol and Drug Abuse Patient Records regulations: The Federal rules restrict any use of the information to criminally investigate or prosecute any alcohol or drug abuse patient.[facility] HospitalIn the event this information is protected by the Federal Confidentiality of Alcohol and Drug Abuse Patient Records regulations: The Federal rules restrict any use of the information to criminally investigate or prosecute any alcohol or drug abuse patient.[facility] HospitalIn the event this information is protected by the Federal Confidentiality of Alcohol and Drug Abuse Patient Records regulations: The Federal rules restrict any use of the information to criminally investigate or prosecute any alcohol or drug abuse patient.[facility] HospitalIn the event this information is protected by the Federal Confidentiality of Alcohol and Drug Abuse Patient Records regulations: The Federal rules restrict any use of the information to criminally investigate or prosecute any alcohol or drug abuse patient.[facility] HospitalIn the event this information is protected by the Federal Confidentiality of Alcohol and Drug Abuse Patient Records regulations: The Federal rules restrict any use of the information to criminally investigate or prosecute any alcohol or drug abuse patient.[facility] HospitalIn the event this information is protected by the Federal Confidentiality of Alcohol and Drug Abuse Patient Records regulations: The Federal rules restrict any use of the information to criminally investigate or prosecute any alcohol or drug abuse patient.[facility] HospitalIn the event this information is protected by the Federal Confidentiality of Alcohol and Drug Abuse Patient Records regulations: The Federal rules restrict any use of the information to criminally investigate or prosecute any alcohol or drug abuse patient.[facility] HospitalIn the event this information is protected by the Federal Confidentiality of Alcohol and Drug Abuse Patient Records regulations: The Federal rules restrict any use of the information to criminally investigate or prosecute any alcohol or drug abuse patient.[facility] HospitalIn the event this information is protected by the Federal Confidentiality of Alcohol and Drug Abuse Patient Records regulations: The Federal rules restrict any use of the information to criminally investigate or prosecute any alcohol or drug abuse patient.[facility] HospitalIn the event this information is protected by the Federal Confidentiality of Alcohol and Drug Abuse Patient Records regulations: The Federal rules restrict any use of the information to criminally investigate or prosecute any alcohol or drug abuse patient.[facility] HospitalIn the event this information is protected by the Federal Confidentiality of Alcohol and Drug Abuse Patient Records regulations: The Federal rules restrict any use of the information to criminally investigate or prosecute any alcohol or drug abuse patient.[facility] HospitalIn the event this information is protected by the Federal Confidentiality of Alcohol and Drug Abuse Patient Records regulations: The Federal rules restrict any use of the information to criminally investigate or prosecute any alcohol or drug abuse patient.[facility] HospitalIn the event this information is protected by the Federal Confidentiality of Alcohol and Drug Abuse Patient Records regulations: The Federal rules restrict any use of the information to criminally investigate or prosecute any alcohol or drug abuse patient.[facility] HospitalIn the event this information is protected by the Federal Confidentiality of Alcohol and Drug Abuse Patient Records regulations: The Federal rules restrict any use of the information to criminally investigate or prosecute any alcohol or drug abuse patient.[facility] HospitalIn the event this information is protected by the Federal Confidentiality of Alcohol and Drug Abuse Patient Records regulations: The Federal rules restrict any use of the information to criminally investigate or prosecute any alcohol or drug abuse patient.[facility] HospitalIn the event this information is protected by the Federal Confidentiality of Alcohol and Drug Abuse Patient Records regulations: The Federal rules restrict any use of the information to criminally investigate or prosecute any alcohol or drug abuse patient.[facility] HospitalIn the event this information is protected by the Federal Confidentiality of Alcohol and Drug Abuse Patient Records regulations: The Federal rules restrict any use of the information to criminally investigate or prosecute any alcohol or drug abuse patient.[facility] HospitalIn the event this information is protected by the Federal Confidentiality of Alcohol and Drug Abuse Patient Records regulations: The Federal rules restrict any use of the information to criminally investigate or prosecute any alcohol or drug abuse patient.[facility] HospitalIn the event this information is protected by the Federal Confidentiality of Alcohol and Drug Abuse Patient Records regulations: The Federal rules restrict any use of the information to criminally investigate or prosecute any alcohol or drug abuse patient.[facility] HospitalIn the event this information is protected by the Federal Confidentiality of Alcohol and Drug Abuse Patient Records regulations: The Federal rules restrict any use of the information to criminally investigate or prosecute any alcohol or drug abuse patient.[facility] HospitalIn the event this information is protected by the Federal Confidentiality of Alcohol and Drug Abuse Patient Records regulations: The Federal rules restrict any use of the information to criminally investigate or prosecute any alcohol or drug abuse patient.[facility] HospitalIn the event this information is protected by the Federal Confidentiality of Alcohol and Drug Abuse Patient Records regulations: The Federal rules restrict any use of the information to criminally investigate or prosecute any alcohol or drug abuse patient.[facility] HospitalIn the event this information is protected by the Federal Confidentiality of Alcohol and Drug Abuse Patient Records regulations: The Federal rules restrict any use of the information to criminally investigate or prosecute any alcohol or drug abuse patient.[facility] HospitalIn the event this information is protected by the Federal Confidentiality of Alcohol and Drug Abuse Patient Records regulations: The Federal rules restrict any use of the information to criminally investigate or prosecute any alcohol or drug abuse patient.[facility] HospitalIn the event this information is protected by the Federal Confidentiality of Alcohol and Drug Abuse Patient Records regulations: The Federal rules restrict any use of the information to criminally investigate or prosecute any alcohol or drug abuse patient.[facility] HospitalIn the event this information is protected by the Federal Confidentiality of Alcohol and Drug Abuse Patient Records regulations: The Federal rules restrict any use of the information to criminally investigate or prosecute any alcohol or drug abuse patient.[facility] HospitalIn the event this information is protected by the Federal Confidentiality of Alcohol and Drug Abuse Patient Records regulations: The Federal rules restrict any use of the information to criminally investigate or prosecute any alcohol or drug abuse patient.[facility] HospitalIn the event this information is protected by the Federal Confidentiality of Alcohol and Drug Abuse Patient Records regulations: The Federal rules restrict any use of the information to criminally investigate or prosecute any alcohol or drug abuse patient.[facility] HospitalIn the event this information is protected by the Federal Confidentiality of Alcohol and Drug Abuse Patient Records regulations: The Federal rules restrict any use of the information to criminally investigate or prosecute any alcohol or drug abuse patient.[facility] HospitalIn the event this information is protected by the Federal Confidentiality of Alcohol and Drug Abuse Patient Records regulations: The Federal rules restrict any use of the information to criminally investigate or prosecute any alcohol or drug abuse patient.[facility] HospitalIn the event this information is protected by the Federal Confidentiality of Alcohol and Drug Abuse Patient Records regulations: The Federal rules restrict any use of the information to criminally investigate or prosecute any alcohol or drug abuse patient.[facility] HospitalIn the event this information is protected by the Federal Confidentiality of Alcohol and Drug Abuse Patient Records regulations: The Federal rules restrict any use of the information to criminally investigate or prosecute any alcohol or drug abuse patient.[facility] HospitalIn the event this information is protected by the Federal Confidentiality of Alcohol and Drug Abuse Patient Records regulations: The Federal rules restrict any use of the information to criminally investigate or prosecute any alcohol or drug abuse patient.[facility] HospitalIn the event this information is protected by the Federal Confidentiality of Alcohol and Drug Abuse Patient Records regulations: The Federal rules restrict any use of the information to criminally investigate or prosecute any alcohol or drug abuse patient.[facility] HospitalIn the event this information is protected by the Federal Confidentiality of Alcohol and Drug Abuse Patient Records regulations: The Federal rules restrict any use of the information to criminally investigate or prosecute any alcohol or drug abuse patient.[facility] HospitalIn the event this information is protected by the Federal Confidentiality of Alcohol and Drug Abuse Patient Records regulations: The Federal rules restrict any use of the information to criminally investigate or prosecute any alcohol or drug abuse patient.[facility] HospitalIn the event this information is protected by the Federal Confidentiality of Alcohol and Drug Abuse Patient Records regulations: The Federal rules restrict any use of the information to criminally investigate or prosecute any alcohol or drug abuse patient.[facility] HospitalIn the event this information is protected by the Federal Confidentiality of Alcohol and Drug Abuse Patient Records regulations: The Federal rules restrict any use of the information to criminally investigate or prosecute any alcohol or drug abuse patient.[facility] HospitalIn the event this information is protected by the Federal Confidentiality of Alcohol and Drug Abuse Patient Records regulations: The Federal rules restrict any use of the information to criminally investigate or prosecute any alcohol or drug abuse patient.[facility] HospitalIn the event this information is protected by the Federal Confidentiality of Alcohol and Drug Abuse Patient Records regulations: The Federal rules restrict any use of the information to criminally investigate or prosecute any alcohol or drug abuse patient.[facility] HospitalIn the event this information is protected by the Federal Confidentiality of Alcohol and Drug Abuse Patient Records regulations: The Federal rules restrict any use of the information to criminally investigate or prosecute any alcohol or drug abuse patient.[facility] HospitalIn the event this information is protected by the Federal Confidentiality of Alcohol and Drug Abuse Patient Records regulations: The Federal rules restrict any use of the information to criminally investigate or prosecute any alcohol or drug abuse patient.[facility] HospitalIn the event this information is protected by the Federal Confidentiality of Alcohol and Drug Abuse Patient Records regulations: The Federal rules restrict any use of the information to criminally investigate or prosecute any alcohol or drug abuse patient.[facility] HospitalIn the event this information is protected by the Federal Confidentiality of Alcohol and Drug Abuse Patient Records regulations: The Federal rules restrict any use of the information to criminally investigate or prosecute any alcohol or drug abuse patient.[facility] HospitalIn the event this information is protected by the Federal Confidentiality of Alcohol and Drug Abuse Patient Records regulations: The Federal rules restrict any use of the information to criminally investigate or prosecute any alcohol or drug abuse patient.[facility] HospitalIn the event this information is protected by the Federal Confidentiality of Alcohol and Drug Abuse Patient Records regulations: The Federal rules restrict any use of the information to criminally investigate or prosecute any alcohol or drug abuse patient.[facility] HospitalIn the event this information is protected by the Federal Confidentiality of Alcohol and Drug Abuse Patient Records regulations: The Federal rules restrict any use of the information to criminally investigate or prosecute any alcohol or drug abuse patient.[facility] HospitalIn the event this information is protected by the Federal Confidentiality of Alcohol and Drug Abuse Patient Records regulations: The Federal rules restrict any use of the information to criminally investigate or prosecute any alcohol or drug abuse patient.[facility] HospitalIn the event this information is protected by the Federal Confidentiality of Alcohol and Drug Abuse Patient Records regulations: The Federal rules restrict any use of the information to criminally investigate or prosecute any alcohol or drug abuse patient.[facility] HospitalIn the event this information is protected by the Federal Confidentiality of Alcohol and Drug Abuse Patient Records regulations: The Federal rules restrict any use of the information to criminally investigate or prosecute any alcohol or drug abuse patient.[facility] HospitalIn the event this information is protected by the Federal Confidentiality of Alcohol and Drug Abuse Patient Records regulations: The Federal rules restrict any use of the information to criminally investigate or prosecute any alcohol or drug abuse patient.[facility] HospitalIn the event this information is protected by the Federal Confidentiality of Alcohol and Drug Abuse Patient Records regulations: The Federal rules restrict any use of the information to criminally investigate or prosecute any alcohol or drug abuse patient.[facility] HospitalIn the event this information is protected by the Federal Confidentiality of Alcohol and Drug Abuse Patient Records regulations: The Federal rules restrict any use of the information to criminally investigate or prosecute any alcohol or drug abuse patient.[facility] HospitalIn the event this information is protected by the Federal Confidentiality of Alcohol and Drug Abuse Patient Records regulations: The Federal rules restrict any use of the information to criminally investigate or prosecute any alcohol or drug abuse patient.[facility] HospitalIn the event this information is protected by the Federal Confidentiality of Alcohol and Drug Abuse Patient Records regulations: The Federal rules restrict any use of the information to criminally investigate or prosecute any alcohol or drug abuse patient.[facility] HospitalIn the event this information is protected by the Federal Confidentiality of Alcohol and Drug Abuse Patient Records regulations: The Federal rules restrict any use of the information to criminally investigate or prosecute any alcohol or drug abuse patient.[facility] HospitalIn the event this information is protected by the Federal Confidentiality of Alcohol and Drug Abuse Patient Records regulations: The Federal rules restrict any use of the information to criminally investigate or prosecute any alcohol or drug abuse patient.[facility] HospitalIn the event this information is protected by the Federal Confidentiality of Alcohol and Drug Abuse Patient Records regulations: The Federal rules restrict any use of the information to criminally investigate or prosecute any alcohol or drug abuse patient.[facility] HospitalIn the event this information is protected by the Federal Confidentiality of Alcohol and Drug Abuse Patient Records regulations: The Federal rules restrict any use of the information to criminally investigate or prosecute any alcohol or drug abuse patient.[facility] HospitalIn the event this information is protected by the Federal Confidentiality of Alcohol and Drug Abuse Patient Records regulations: The Federal rules restrict any use of the information to criminally investigate or prosecute any alcohol or drug abuse patient.[facility] HospitalIn the event this information is protected by the Federal Confidentiality of Alcohol and Drug Abuse Patient Records regulations: The Federal rules restrict any use of the information to criminally investigate or prosecute any alcohol or drug abuse patient.[facility] HospitalIn the event this information is protected by the Federal Confidentiality of Alcohol and Drug Abuse Patient Records regulations: The Federal rules restrict any use of the information to criminally investigate or prosecute any alcohol or drug abuse patient.[facility] HospitalIn the event this information is protected by the Federal Confidentiality of Alcohol and Drug Abuse Patient Records regulations: The Federal rules restrict any use of the information to criminally investigate or prosecute any alcohol or drug abuse patient.[facility] HospitalIn the event this information is protected by the Federal Confidentiality of Alcohol and Drug Abuse Patient Records regulations: The Federal rules restrict any use of the information to criminally investigate or prosecute any alcohol or drug abuse patient.[facility] HospitalIn the event this information is protected by the Federal Confidentiality of Alcohol and Drug Abuse Patient Records regulations: The Federal rules restrict any use of the information to criminally investigate or prosecute any alcohol or drug abuse patient.[facility] HospitalIn the event this information is protected by the Federal Confidentiality of Alcohol and Drug Abuse Patient Records regulations: The Federal rules restrict any use of the information to criminally investigate or prosecute any alcohol or drug abuse patient.[facility] HospitalIn the event this information is protected by the Federal Confidentiality of Alcohol and Drug Abuse Patient Records regulations: The Federal rules restrict any use of the information to criminally investigate or prosecute any alcohol or drug abuse patient.[facility] HospitalIn the event this information is protected by the Federal Confidentiality of Alcohol and Drug Abuse Patient Records regulations: The Federal rules restrict any use of the information to criminally investigate or prosecute any alcohol or drug abuse patient.[facility] HospitalIn the event this information is protected by the Federal Confidentiality of Alcohol and Drug Abuse Patient Records regulations: The Federal rules restrict any use of the information to criminally investigate or prosecute any alcohol or drug abuse patient.[facility] HospitalIn the event this information is protected by the Federal Confidentiality of Alcohol and Drug Abuse Patient Records regulations: The Federal rules restrict any use of the information to criminally investigate or prosecute any alcohol or drug abuse patient.[facility] HospitalIn the event this information is protected by the Federal Confidentiality of Alcohol and Drug Abuse Patient Records regulations: The Federal rules restrict any use of the information to criminally investigate or prosecute any alcohol or drug abuse patient.[facility] HospitalIn the event this information is protected by the Federal Confidentiality of Alcohol and Drug Abuse Patient Records regulations: The Federal rules restrict any use of the information to criminally investigate or prosecute any alcohol or drug abuse patient.[facility] HospitalIn the event this information is protected by the Federal Confidentiality of Alcohol and Drug Abuse Patient Records regulations: The Federal rules restrict any use of the information to criminally investigate or prosecute any alcohol or drug abuse patient.[facility] HospitalIn the event this information is protected by the Federal Confidentiality of Alcohol and Drug Abuse Patient Records regulations: The Federal rules restrict any use of the information to criminally investigate or prosecute any alcohol or drug abuse patient.[facility] HospitalIn the event this information is protected by the Federal Confidentiality of Alcohol and Drug Abuse Patient Records regulations: The Federal rules restrict any use of the information to criminally investigate or prosecute any alcohol or drug abuse patient.[facility] HospitalIn the event this information is protected by the Federal Confidentiality of Alcohol and Drug Abuse Patient Records regulations: The Federal rules restrict any use of the information to criminally investigate or prosecute any alcohol or drug abuse patient.[facility] HospitalIn the event this information is protected by the Federal Confidentiality of Alcohol and Drug Abuse Patient Records regulations: The Federal rules restrict any use of the information to criminally investigate or prosecute any alcohol or drug abuse patient.[facility] HospitalIn the event this information is protected by the Federal Confidentiality of Alcohol and Drug Abuse Patient Records regulations: The Federal rules restrict any use of the information to criminally investigate or prosecute any alcohol or drug abuse patient.[facility] HospitalIn the event this information is protected by the Federal Confidentiality of Alcohol and Drug Abuse Patient Records regulations: The Federal rules restrict any use of the information to criminally investigate or prosecute any alcohol or drug abuse patient.[facility] HospitalIn the event this information is protected by the Federal Confidentiality of Alcohol and Drug Abuse Patient Records regulations: The Federal rules restrict any use of the information to criminally investigate or prosecute any alcohol or drug abuse patient.[facility] HospitalIn the event this information is protected by the Federal Confidentiality of Alcohol and Drug Abuse Patient Records regulations: The Federal rules restrict any use of the information to criminally investigate or prosecute any alcohol or drug abuse patient.[facility] HospitalIn the event this information is protected by the Federal Confidentiality of Alcohol and Drug Abuse Patient Records regulations: The Federal rules restrict any use of the information to criminally investigate or prosecute any alcohol or drug abuse patient.[facility] HospitalIn the event this information is protected by the Federal Confidentiality of Alcohol and Drug Abuse Patient Records regulations: The Federal rules restrict any use of the information to criminally investigate or prosecute any alcohol or drug abuse patient.[facility] HospitalIn the event this information is protected by the Federal Confidentiality of Alcohol and Drug Abuse Patient Records regulations: The Federal rules restrict any use of the information to criminally investigate or prosecute any alcohol or drug abuse patient.[facility] HospitalIn the event this information is protected by the Federal Confidentiality of Alcohol and Drug Abuse Patient Records regulations: The Federal rules restrict any use of the information to criminally investigate or prosecute any alcohol or drug abuse patient.[facility] HospitalIn the event this information is protected by the Federal Confidentiality of Alcohol and Drug Abuse Patient Records regulations: The Federal rules restrict any use of the information to criminally investigate or prosecute any alcohol or drug abuse patient.[facility] HospitalIn the event this information is protected by the Federal Confidentiality of Alcohol and Drug Abuse Patient Records regulations: The Federal rules restrict any use of the information to criminally investigate or prosecute any alcohol or drug abuse patient.[facility] HospitalIn the event this information is protected by the Federal Confidentiality of Alcohol and Drug Abuse Patient Records regulations: The Federal rules restrict any use of the information to criminally investigate or prosecute any alcohol or drug abuse patient.[facility] HospitalIn the event this information is protected by the Federal Confidentiality of Alcohol and Drug Abuse Patient Records regulations: The Federal rules restrict any use of the information to criminally investigate or prosecute any alcohol or drug abuse patient.[facility] HospitalIn the event this information is protected by the Federal Confidentiality of Alcohol and Drug Abuse Patient Records regulations: The Federal rules restrict any use of the information to criminally investigate or prosecute any alcohol or drug abuse patient.[facility] HospitalIn the event this information is protected by the Federal Confidentiality of Alcohol and Drug Abuse Patient Records regulations: The Federal rules restrict any use of the information to criminally investigate or prosecute any alcohol or drug abuse patient.[facility] HospitalIn the event this information is protected by the Federal Confidentiality of Alcohol and Drug Abuse Patient Records regulations: The Federal rules restrict any use of the information to criminally investigate or prosecute any alcohol or drug abuse patient.[facility] HospitalIn the event this information is protected by the Federal Confidentiality of Alcohol and Drug Abuse Patient Records regulations: The Federal rules restrict any use of the information to criminally investigate or prosecute any alcohol or drug abuse patient.[facility] HospitalIn the event this information is protected by the Federal Confidentiality of Alcohol and Drug Abuse Patient Records regulations: The Federal rules restrict any use of the information to criminally investigate or prosecute any alcohol or drug abuse patient.[facility] HospitalIn the event this information is protected by the Federal Confidentiality of Alcohol and Drug Abuse Patient Records regulations: The Federal rules restrict any use of the information to criminally investigate or prosecute any alcohol or drug abuse patient.[facility] HospitalIn the event this information is protected by the Federal Confidentiality of Alcohol and Drug Abuse Patient Records regulations: The Federal rules restrict any use of the information to criminally investigate or prosecute any alcohol or drug abuse patient.[facility] HospitalIn the event this information is protected by the Federal Confidentiality of Alcohol and Drug Abuse Patient Records regulations: The Federal rules restrict any use of the information to criminally investigate or prosecute any alcohol or drug abuse patient.[facility] HospitalIn the event this information is protected by the Federal Confidentiality of Alcohol and Drug Abuse Patient Records regulations: The Federal rules restrict any use of the information to criminally investigate or prosecute any alcohol or drug abuse patient.[facility] HospitalIn the event this information is protected by the Federal Confidentiality of Alcohol and Drug Abuse Patient Records regulations: The Federal rules restrict any use of the information to criminally investigate or prosecute any alcohol or drug abuse patient.[facility] HospitalIn the event this information is protected by the Federal Confidentiality of Alcohol and Drug Abuse Patient Records regulations: The Federal rules restrict any use of the information to criminally investigate or prosecute any alcohol or drug abuse patient.[facility] Reason for Visit (unrecogniz ed section and content) Reason Comments Follow Up 2 month Reason Onset Date Comments Refill Request 01/24/2022 SEE RX NOTES Reason Onset Date Comments Refill Request 01/31/2022 Reason Comments Follow Up Derm Problem red dry spots Joint Pain hand elbow joint harjinder n holding something with weight is an issue Reason Comments Results Reason Onset Date Comments Refill Request 04/02/2022 SEE RX NOTES Reason Comments Follow Up Reason Onset Date Comments Refill Request 05/22/2022 Reason Onset Date Comments Refill Request 05/27/2022 Reason Onset Date Comments Refill Request 06/02/2022 Reason Onset Date Comments Refill Request 07/01/2022 Reason Comments Pain 2 mo f/u for [place] R F Reason Comments Covid update Reason Onset Date Comments Refill Request 08/01/2022 Reason Onset Date Comments Refill Request 09/29/2022 Reason Comments Insurance Authorization Medication Update Reason Comments Refill Request Reason Comments Follow Up Reason Onset Date Comments Refill Request 11/24/2022 Reason Onset Date Comments Refill Request 12/05/2022 Reason Onset Date Comments Refill Request 2022 Reason Onset Date Comments Refill Request 12/29/2022 Reason Comments Follow Up 8 week follow up Specialty Diagnoses / Procedures Referred By Jason shin Referred To Contact Family Medicine / FAMILY MEDICINE Diagnoses 8 week follow up Procedures 4[place] [address] [place] [id number] [place] [address] [place], [place] [id number] Referral ID Status Reason Start Date Expiration Date V isits Requested Visits Authorized [id number] Closed Financial Clearance Required - Self Pay Patient Cleared - True Self-Pay required payment collected 01/12/2023 01/12/2023 1 1 Reason Onset Date Comments Refill Request 02/17/2023 Reason Onset Date Comments Refill Request 03/18/2023 Specialty Diagnoses / Procedures Referred By Jason shin Referred To Contact FAMILY MEDICINE Diagnoses follow up Procedures [place] [address] [place] [id number] [facility] [address] [place] [id number] Referral ID Status Reason Start Date Expiration Date Visits Requested Visits Authorized [id number] Authorized Financial Clearance Required - Self Pay Patient Cleared - Qualified 100% FAS 03/09/2023 06/07/2023 99 99 Reason Onset Date Comments Refill Request 04/09/2023 Reason Onset Date Comments Refill Request 05/11/2023 Reason Onset Date Comments Refill Request 07/06/2023 Reason Comments Pain Left side of neck an d shoulder, x 3 weeks intense pain. Reason Comments Follow Up 2 month follow up fo r meds ED Follow-up Saw UC had pred and shot of toradol for neck pain. Reason Comments PT Eval Specialty Diagnoses / Procedures Referred By Jason shin Referred To Contact [facility] Diagnoses Neck pain Radicular pain in left arm Acute left-sided thoracic back pain Procedures CONSULT TO PHYSICAL THERAPY PHYSICAL THERAPY EVALUATION HIGH COMPLEX 45 [place] [address] [place], [place] [id number] [facility] [place] [address] Referral ID Status Reason Start Date Expiration Date Visits Requested Visits Authorized [id number] Authorized Auto-Generat ed Referral 04/06/2023 09/20/2023 20 20 Reason Onset Date Comments Refill Request 08/31/2023 Reason Onset Date Comments Refill Request 11/23/2023 Reason Onset Date Comments Refill Request 12/07/2023 Reason Onset Date Comments Refill Request 12/21/2023 Reason Onset Date Comments Refill Request 01/18/2024 Reason Onset Date Comments Medication Request 02/01/2024 Reason Onset Date Comments Refill Request 02/17/2024 Reason Comments Urinary Problem Burning, frequency x 1 day Reason Comments Recheck Follow up UC 03/05/24 - hematuria; burning with urination Reason Comments Radiology CT Specialty Diagnoses / Procedures Referred By Jason shin Referred To Contact CT IMAGING Diagnoses Generalized abdominal pain Nausea Procedures CT ABD/PEL W IVCON CT ABD & PELVIS W/CONTRAST Madelaine Tomlinson, 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 [address] [place] [address] [place] [address] Referral ID Status Reason Start Date Expiration Date Visits Requested Visits Authorized [id number] Waiting for Response Auto-[employer]era [place] Referral Patient Cleared - Admin/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 man/Directo r advise to proceed or did not respond 03/07/2024 04/06/2025 2 2 Reason Comments Results Reason Onset Date Comments Refill Request 03/16/2024 Reason Onset Date Comments Refill Request 03/21/2024 Reason Onset Date Comments Refill Request 04/12/2024 Reason Comments Follow Up Reason Onset Date Comments Refill Request 05/09/2024 Reason Onset Date Comments Refill Request 06/09/2024 Reason Comments Follow Up Reason Comments 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 Reason Comments New Patient Evaluation Specialty Diagnoses / Procedures Referred By Jason shin Referred To Contact Neurology Diagnoses Other migraine without status migrainosus, not intractable Procedures CONSULT TO NEUROLOGY OFFICE/OUTPATIENT NEW HIGH MDM 60 MINUTES Jacek Scruggs MD [address] [place] [address] Referral ID Status Reason Start Date Expiration Date V isits Requested Visits Authorized [id number] Closed PCP Requested Referral 05/02/2024 05/02/2025 1 1 Reason Comments Results XRay Reason Comments Insurance Authorization Reason Comments Medication Problem Reason Onset Date Comments Refill Request 07/25/2024 Reason Comments Back Pain Lower back pain, johnathan sea burning in chest, x 6 days Reason Comments Yearly Exam Reason Onset Date Comments Refill Request 08/03/2024 Reason Comments Medication Question Reason Onset Date Comments Refill Request 08/16/2024 Reason Onset Date Comments Refill Request 08/24/2024 Reason Comments Insurance Authorization Emgality Renewal Reason Onset Date Comments Refill Request 08/31/2024 Reason Comments Prior Auth: [employer]ul[employer] Reason Comments Patient Request Reason Onset Date Comments Refill Request 09/26/2024 Reason Onset Date Comments Refill Request 09/28/2024 Reason Comments Established Patient Migraines-c/o bad re action emgality, wants to talk about taking botox Reason Onset Date Comments Refill Request 10/06/2024 Reason Comments botox PA Reason Onset Date Comments Refill Request 10/20/2024 Reason Comments Neurotoxin Injection Specialty Diagnoses / Procedures Referred By Jason shin Referred To Contact ADULT NEUROLOGY Diagnoses Intractable chronic migraine with aura and without status migrainosus Procedures BOTULINUM TOXIN A PER 1 UNIT CHEMODERVATE FACIAL/TRIGEM/CERV MUSC MIGRAINE Robyn Harris PA-C [address] [place] [address] [address] [facility] [address] [place] [address] Referral ID Status Reason Start Date Expiration Date V isits Requested Visits Authorized [id number] Authorized 10/14/2024 04/12/2025 2 2 Reason Onset Date Comments Refill Request 12/12/2024 Reason Comments Headache Has seen neuro for m igraines and and been treated with medrol pack. Patient unable to get this again so soon and asking for alternative treatment. Neuro recommended primary care follow up Reason Onset Date Comments Refill Request 12/22/2024 Reason Comments Consult Hx of colonic polyps Specialty Diagnoses / Procedures Referred By Contzeina t Referred To Contact General Surgery Diagnoses History of colonic polyps Procedures CONSULT TO GENERAL SURGERY OFFICE/OUTPATIENT NEW HIGH MDM 60 MINUTES Bratenahl, Jacek J, MD [address] [place] [address] Phone: tel: fax: Referral ID Status Reason Start Date Expiration Date V isits Requested Visits Authorized [id number] Closed PCP Requested Referral 01/16/2025 01/16/2026 1 1 Reason Comments Headache botox treatment #2 Specialty Diagnoses / Procedures Referred By Jason shin Referred To Contact ADULT NEUROLOGY Diagnoses Intractable chronic migraine with aura and without status migrainosus Procedures BOTULINUM TOXIN A PER 1 UNIT CHEMODERVATE FACIAL/TRIGEM/CERV MUSC MIGRAINE Robyn Harris PA-C [address] [place] [address] Phone: tel: fax: Neurology [address] [place] [address] [place] [address] Phone: tel: fax: Referral ID Status Reason Start Date Expiration Date Visits Re quested Visits Authorized [id number] Closed 10/14/2024 04/12/2025 2 2 Reason Onset Date Comments Refill Request 02/15/2025 Reason Comments Medication Problem clarify directions on rx Reason Onset Date Comments Refill Request 03/01/2025 Reason Onset Date Comments Refill Request 03/08/2025 Reason Onset Date Comments Refill Request 04/04/2025 Reason Comments Prior Authorization Reason Comments Insurance Authorization Pharmacy Approva l - [id number] Botox Reason Onset Date Comments Refill Request 05/03/2025 Reason Comments Follow Up Botox injection Specialty Diagnoses / Procedures Referred By Jason shin Referred To Contact NEUROLOGY Diagnoses Intractable chronic migraine with aura and without status migrainosus Procedures BOTULINUM TOXIN A PER 1 UNIT CHEMODERVATE FACIAL/TRIGEM/CERV MUSC MIGRAINE Robyn Harris PA-C [address] [place] [address] Phone: tel: fax: Neurology [address] [place] [address] Phone: tel: fax: Referral ID Status Reason Start Date Expiration Date V isits Requested Visits Authorized [id number] Authorized 04/20/2025 04/19/2026 4 4 Care Teams (unrecognized sec tion and content) Cognos Relationship Specialty Start Date End Date Jacek Scruggs MD [address] [place] [address] PCP - General Family Practice 07/14/12 Cognos Relationship Specialty Start Date End Date Jacek Scruggs MD [address] [place] [address] PCP - General Family Practice 07/14/12 Cognos Relationship Specialty Start Date End Date Jacek Scruggs MD [address] [place] [address] PCP - General Family Practice 07/14/12 Cognos Relationship Specialty Start Date End Date Jacek Scruggs MD [address] [place] [address] PCP - General Family Practice 07/14/12 Cognos Relationship Specialty Start Date End Date Jacek Scruggs MD [address] [place] [address] PCP - General Family Practice 07/14/12 Cognos Relationship Specialty Start Date End Date Jacek Scruggs MD [address] [place] [address] PCP - General Family Practice 07/14/12 Cognos Relationship Specialty Start Date End Date Jacek Scruggs MD [address] [place] [address] PCP - General Family Practice 07/14/12 Cognos Relationship Specialty Start Date End Date Jacek Scruggs MD [address] [place] [address] PCP - General Family Practice 07/14/12 Cognos Relationship Specialty Start Date End Date Jacek Scruggs MD [address] [place] [address] PCP - General Family Medicine 07/14/12 Cognos Relationship Specialty Start Date End Date Jacek Scruggs MD [address] [place] [address] PCP - General Family Medicine 07/14/12 Cognos Relationship Specialty Start Date End Date Jacek Scruggs MD [address] [place] [address] PCP - General Family Medicine 07/14/12 Cognos Relationship Specialty Start Date End Date Jacek Scruggs MD [address] [place] [address] PCP - General Family Medicine 07/14/12 Cognos Relationship Specialty Start Date End Date Jacek Scruggs MD [address] [place] [address] PCP - General Family Medicine 07/14/12 Team Status: Active Member Role Status Dates Dr. Jacek Scruggs MD Family Provider Active Dr. Jacek Scruggs MD Primary Care Provider Active Team Status: Inactive Member Role Status Dates Dr. Jacek Scruggs MD Primary Care Provider, Referring Provider Active Russ LOW, PA Attending Provider Active Team Status: Inactive Member Role Status Dates Dr. Jacek Scruggs MD Primary Care Provider, Referring Provider Active Rafi LOW, PA Attending Provider Active Team Status: Inactive Member Role Status Dates Dr. Jacek Scruggs MD Primary Care Provider Active Dr. Trell Conn MD Attending Provider Active Team Status: Inactive Member Role Status Dates Dr. Jacek Scruggs MD Primary Care Provider, Referring Provider Active Page Galan PA, PA Attending Provider Active Team Status: Active Member Role Status Dates Dr. Jacek Scruggs MD Primary Care Provider Active Dr. Trell Conn MD Attending Provider Active Team Status: Inactive Member Role Status Dates Dr. Jacek Scruggs MD Primary Care Provider Active Russ LOW, PA Attending Provider Active Team Status: Inactive Member Role Status Dates Dr. Jacek Scruggs MD Primary Care Provider Active MARANDA Olguin Attending Provider, Referr ing Provider Active Team Status: Inactive Member Role Status Dates Dr. Jacek Scruggs MD Primary Care Provider Active MARANDA Olguin Attending Provider Active Team Status: Active Member Role Status Dates Dr. Jacek Scruggs MD Primary Care Provider Active Dr. Trell Conn MD Attending Provider Active MARANDA Olguin Referring Provider Active Cognos Relationship Specialty Start Date End Date Jacek Scruggs MD [address] [place] [address] PCP - General Family Medicine 07/14/12 Team Status: Inactive Member Role Status Dates Dr. Jacek Scruggs MD Primary Care Provider Active Dr. Kirit Goldberg MD Emergency Provider Active Cognos Relationship Specialty Start Date End Date Jacek Scruggs MD [address] [place] [address] PCP - General Family Medicine 07/14/12 Team Status: Inactive Member Role Status Dates Dr. Jacek Scruggs MD Primary Care Provider, Referring Provider Active Dr. Chele Villarreal DO Attending Provider Active Team Status: Inactive Member Role Status Dates Dr. Jacek Scruggs MD Primary Care Provider Active Dr. Kirit Goldberg MD Attending Provider, Emergency Provider Active Team Status: Inactive Member Role Status Dates Dr. Jacek Scruggs MD Primary Care Provider Active Dr. Chele Villarreal DO Attending Provider, Referring Provider Active Cognos Relationship Specialty Start Date End Date Jacek Scruggs MD [address] [place] [address] PCP - General Family Medicine 07/14/12 Cognos Relationship Specialty Start Date End Date Jacek Scruggs MD [address] [place] [address] PCP - General Family Medicine 07/14/12 Cognos Relationship Specialty Start Date End Date Jacek Scruggs MD [address] [place] [address] PCP - General Family Medicine 07/14/12 Cognos Relationship Specialty Start Date End Date Jacek Scruggs MD [address] [place] [address] PCP - General Family Medicine 07/14/12 Cognos Relationship Specialty Start Date End Date Jacek Scruggs MD [address] [place] [address] PCP - General Family Medicine 07/14/12 Cognos Relationship Specialty Start Date End Date Jacek Scruggs MD [address] [place] [address] PCP - General Family Medicine 07/14/12 Cognos Relationship Specialty Start Date End Date Jacek Scruggs MD [address] [place] [address] PCP - General Family Medicine 07/14/12 Cognos Relationship Specialty Start Date End Date Jacek Scruggs MD [address] [place] [address] PCP - General Family Medicine 07/14/12 Cognos Relationship Specialty Start Date End Date Jacek Scruggs MD [address] [place] [address] PCP - General Family Medicine 07/14/12 Cognos Relationship Specialty Start Date End Date Jacek Scruggs MD [address] [place] [address] PCP - General Family Medicine 07/14/12 Cognos Relationship Specialty Start Date End Date Jacek Scruggs MD [address] [place] [address] PCP - General Family Medicine 07/14/12 Cognos Relationship Specialty Start Date End Date Jacek Scruggs MD [address] [place], [place] [address] PCP - General Family Medicine 07/14/12 Cognos Relationship Specialty Start Date End Date Jacek Scruggs MD [address] [place], [place] [address] PCP - General Family Medicine 07/14/12 Cognos Relationship Specialty Start Date End Date Jacek Scruggs MD [address] [place], [place] [address] PCP - General Family Medicine 07/14/12 Cognos Relationship Specialty Start Date End Date Jacek Scruggs MD [address] [place] [address] PCP - General Family Medicine 07/14/12 Cognos Relationship Specialty Start Date End Date Jacek Scruggs MD [address] [place] [address] PCP - General Family Medicine 07/14/12 Cognos Relationship Specialty Start Date End Date Jacek Scruggs MD [address] [place] [address] PCP - General Family Medicine 07/14/12 Cognos Relationship Specialty Start Date End Date Jacek Scruggs MD [address] [place], [place] [address] PCP - General Family Medicine 07/14/12 Cognos Relationship Specialty Start Date End Date Jacek Scruggs MD [address] [place], [place] [address] PCP - General Family Medicine 07/14/12 Cognos Relationship Specialty Start Date End Date Jacek Scruggs MD [address] [place], [place] [address] PCP - General Family Medicine 07/14/12 Cognos Relationship Specialty Start Date End Date Jacek Scruggs MD [address] [place] [address] PCP - General Family Medicine 07/14/12 Cognos Relationship Specialty Start Date End Date Jacek Scruggs MD [address] [place] [address] PCP - General Family Medicine 07/14/12 Cognos Relationship Specialty Start Date End Date Jacek Scruggs MD [address] [place] [address] PCP - General Family Medicine 07/14/12 Cognos Relationship Specialty Start Date End Date Jacek Scruggs MD [address] [place] [address] PCP - General Family Medicine 07/14/12 Cognos Relationship Specialty Start Date End Date Jacek Scruggs MD [address] [place] [address] PCP - General Family Medicine 07/14/12 Cognos Relationship Specialty Start Date End Date Jacek Scruggs MD [address] [place], [place] [address] PCP - General Family Medicine 07/14/12 Cognos Relationship Specialty Start Date End Date Jacek Scruggs MD [address] [place] [address] PCP - General Family Medicine 07/14/12 Cognos Relationship Specialty Start Date End Date Jacek Scruggs MD [address] [place] [address] PCP - General Family Medicine 07/14/12 Cognos Relationship Specialty Start Date End Date Jacek Scruggs MD [address] [place] [address] PCP - General Family Medicine 07/14/12 Cognos Relationship Specialty Start Date End Date Jacek Scruggs MD [address] [place] [address] PCP - General Family Medicine 07/14/12 Cognos Relationship Specialty Start Date End Date Jacek Scruggs MD [address] [place] [address] PCP - General Family Medicine 07/14/12 Cognos Relationship Specialty Start Date End Date Jacek Scruggs MD [address] [place] [address] PCP - General Family Medicine 07/14/12 Cognos Relationship Specialty Start Date End Date Jacek Scruggs MD [address] [place] [address] PCP - General Family Medicine 07/14/12 Cognos Relationship Specialty Start Date End Date Jacek Scruggs MD [address] [place] [address] PCP - General Family Medicine 07/14/12 Cognos Relationship Specialty Start Date End Date Jacek Scruggs MD [address] [place] [address] PCP - General Family Medicine 07/14/12 Cognos Relationship Specialty Start Date End Date Jacek Scruggs MD [address] [place] [address] PCP - General Family Medicine 07/14/12 Cognos Relationship Specialty Start Date End Date Jaeck Scruggs MD [address] [place] [address] PCP - General Family Medicine 07/14/12 Madelaine Tomlinson APRN.SCHOOL TRANSPORTATION SUPERVISOR [address] [place] [address] [facility] 08/29/24 Coby Sotelo 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 [address] [place] [address] [facility] 08/29/24 Cognos Relationship Specialty Start Date End Date Jacek Scruggs MD [address] [place] [address] PCP - General Family Medicine 07/14/12 Madelaine Tomlinson, 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 [address] [place] [address] [facility] 08/29/24 Coby Sotelo 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 [address] [place] [address] [facility] 08/29/24 Cognos Relationship Specialty Start Date End Date Jacek Scruggs MD [address] [place] [address] PCP - General Family Medicine 07/14/12 Madelaine Tomlinson APRN.SCHOOL TRANSPORTATION SUPERVISOR [address] [place] [address] [facility] 08/29/24 Coby Sotelo APRN.SCHOOL TRANSPORTATION SUPERVISOR [address] [place] [address] [facility] 08/29/24 Cognos Relationship Specialty Start Date End Date Jacek Scruggs MD [address] [place] [address] PCP - General Family Medicine 07/14/12 Madelaine Tomlinson APRN.SCHOOL TRANSPORTATION SUPERVISOR [address] [place] [address] [facility] 08/29/24 Coby Sotelo 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 [address] [place] [address] [facility] 08/29/24 Cognos Relationship Specialty Start Date End Date Jacek Scruggs MD [address] [place] [address] PCP - General Family Medicine 07/14/12 Madelaine Tomlinson 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 [address] [place] [address] [facility] 08/29/24 Coby Sotelo APRN.SCHOOL TRANSPORTATION SUPERVISOR [address] [place] [address] [facility] 08/29/24 Cognos Relationship Specialty Start Date End Date Jacek Scruggs MD [address] [facility] [place] [address] PCP - General Family Medicine 07/14/12 Madelaine Tomlinson 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 [address] [facility] [place] [address] [facility] 08/29/24 Coby Sotelo 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 [address] [facility] [place] [address] [facility] 08/29/24 Cognos Relationship Specialty Start Date End Date Jacek Scruggs MD [address] [place] [address] PCP - General Family Medicine 07/14/12 Madelaine Tomlinson 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 [address] [place] [address] [facility] 08/29/24 Cognos Relationship Specialty Start Date End Date Jacek Scruggs MD [address] [facility] [place] [address] PCP - General Family Medicine 07/14/12 Madelaine Tomlinson 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 [address] [facility] [place] [address] [facility] 08/29/24 Coby Sotelo 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 [address] [facility] [place] [address] [facility] 08/29/24 Cognos Relationship Specialty Start Date End Date Jacek Scruggs MD [address] [facility] [place] [address] PCP - General Family Medicine 07/14/12 Madelaine Tomlinson APRN.SCHOOL TRANSPORTATION SUPERVISOR [address] [place] [address] [facility] 08/29/24 Coby Sotelo APRN.SCHOOL TRANSPORTATION SUPERVISOR [address] [facility] [place] [address] [facility] 08/29/24 Cognos Relationship Specialty Start Date End Date Jacek Scruggs MD [address] [facility] [place] [address] PCP - General Family Medicine 07/14/12 Madelaine Tomlinson APRN.SCHOOL TRANSPORTATION SUPERVISOR [address] [place] [address] [facility] 08/29/24 Coby Sotelo APRN.SCHOOL TRANSPORTATION SUPERVISOR [address] [facility] [place] [address] [facility] [employer] 08/29/24 Cognos Relationship Specialty Start Date End Date Jacek Scruggs MD [address] [facility] [place] [address] PCP - General Family Medicine 07/14/12 Madelaine Tomlinson APRN.SCHOOL TRANSPORTATION SUPERVISOR [address] [place] [address] [facility] 08/29/24 Coby Sotelo APRN.SCHOOL TRANSPORTATION SUPERVISOR [address] [place] [address] [facility] 08/29/24 Cognos Relationship Specialty Start Date End Date Jacek Scruggs MD [address] [place] [address] PCP - General Family Medicine 07/14/12 Madelaine Tomlinson APRN.SCHOOL TRANSPORTATION SUPERVISOR [address] [place] [address] [facility] 08/29/24 Coby Sotelo APRN.SCHOOL TRANSPORTATION SUPERVISOR [address] [place] [address] [facility] 08/29/[facility] Cognos Relationship Specialty Start Date End Date Jacek Scruggs MD [address] [place] [address] PCP - General Family Medicine 07/14/12 Madelaine Tomlinson 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 [address] [place] [address] [facility] 08/29/24 Coby Sotelo 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 [address] [place] [address] [facility] 08/29/24 Cognos Relationship Specialty Start Date End Date Jacek Scruggs MD [address] [place] [address] PCP - General Family Medicine 07/14/12 Madleaine Tomlinson 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 [address] [place] [address] [facility] 08/29/24 Coby Sotelo 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 [address] [place] [address] [facility] 08/29/24 Cognos Relationship Specialty Start Date End Date Jacek Scruggs MD [address] [place] [address] PCP - General Family Medicine 07/14/12 Madelaine Tomlinson APRN.SCHOOL TRANSPORTATION SUPERVISOR [address] [place] [address] [facility] 08/29/24 Coby Sotelo 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 [address] [place] [address] [facility] 08/29/24 Cognos Relationship Specialty Start Date End Date Jacek Scruggs MD [address] [place] [address] PCP - General Family Medicine 07/14/12 Madelaine Tomlinson 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 [address] [place] [address] [facility] 08/29/24 Coby Sotelo 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 [address] [place] [address] [facility] 08/29/24 Cognos Relationship Specialty Start Date End Date Jacek Scruggs MD [address] [place] [address] PCP - General Family Medicine 07/14/12 Madelaine Tomlinson APRN.SCHOOL TRANSPORTATION SUPERVISOR [address] [place] [address] [facility] 08/29/24 Coby Soteol APRN.SCHOOL TRANSPORTATION SUPERVISOR [address] [place] [address] [facility] 08/29/24 Cognos Relationship Specialty Start Date End Date Jacek Scruggs MD [address] [place] [address] PCP - General Family Medicine 07/14/12 Madelaine Tomlinson APRN.SCHOOL TRANSPORTATION SUPERVISOR [address] [facility] [place] [address] [facility] 08/29/24 Coby Sotelo 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 [address] [place] [address] [facility] 08/29/24 Cognos Relationship Specialty Start Date End Date Jacek Scruggs MD [address] [place] [address] PCP - General Family Medicine 07/14/12 Madelaine Tomlinson, 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 [address] [place] [address] [facility] 08/29/24 Coby Sotelo APRN.SCHOOL TRANSPORTATION SUPERVISOR [address] [place] [address] [facility] 08/29/24 Cognos Relationship Specialty Start Date End Date Jacek Scruggs MD [address] [place] [address] PCP - General Family Medicine 07/14/12 Madelaine Tomlinson APRN.SCHOOL TRANSPORTATION SUPERVISOR [address] [place], [place] [address] [facility] [employer] [facility] 08/29/24 Coby Sotelo APRN.SCHOOL TRANSPORTATION SUPERVISOR [address] [place], [place] [address] [employer] [facility] 08/29/24 Goals (unrecognized section and content) Goals may be documented in a n alternate sectionGoals may be documented in an alternate sectionGoals may be documented in an alternate sectionGoals may be documented in an alternate sectionGoals may be documented in an alternate sectionGoals may be documented in an alternate section INFORMATION SOURCE (unrecogn ized section and content) DATE CREATED AUTHOR 02/02/2023 [facility] DATE CREATED AUTHOR AUTHOR'S ORGANIZ ATION 03/05/2025 [facility] DATE CREATED AUTHOR AUTHOR'S ORGANIZ ATION 05/19/2025 [facility] FOR RECORDS PERTAINING TO PATIENTS WHO ARE OR HAVE BEEN ENROLLED IN A CHEMICAL DEPENDENCY/SUBSTANCEABUSE PROGRAM, SOME INFORMATION MAY BE OMITTED. This clinical summary was aggregated from multiple sources. Caution should be exercised in using it in the provision of clinical care. This summary normalizes information from multiple sources, and as a consequence, information in this document may materially change the coding, format and clinical context of patient data. In addition, data may be omitted in some cases. CLINICAL DECISIONS SHOULD BE BASED ON THE PRIMARY CLINICAL RECORDS. [employer] provides no warranty or guarantee of the accuracy or completeness of information in this document.
[2025-05-28 10:30] VITALS: PULSE 79; RESP 14; O2SAT 99
[2025-05-28 10:33] VITALS: BP 109/87; PULSE 79; RESP 14; TEMP 36.8; O2SAT 99
== END 2025-05-28 10:52 | disposition home or self-care (01) ==
PROVIDERS: Emergency Provider Emergency Medicine; PCP Family Medicine; Visit Provider Emergency Medicine
DX: G43.919 Migraine, unspecified, intractable, without status migrainosus (principal); I10 Essential (primary) hypertension; Z79.899 Other long term (current) drug therapy
CPT/HCPCS: 70450; 96361; 96374; 96375; 99283; A4216

== ENCOUNTER 2025-06-18 18:29 | Emergency (ER) | payer BC, SELFPAY ==
--- OUTSIDE RECORDS SUMMARY | 2025-06-17 13:14 | XMS RPT_ITS ---
Author Name [employer] Organization OHIP Care Team Providers Care [employer] Power [employer] Engineer Name Role Phone JACEK SCRUGGS Primary Care Unavailable GABRIEL COLON Attending Unava ilable GYPSY AGRAWAL Attending UnavailQUIN Harley Referring Unavailable SHEBA, JACEK Rashid Primary Care Unavailable ADRIAN REECE Attending Unavailable JACEK SCRUGGS Primary Care Unavailable COBY SOTELO Attending Unavailable JACEK SCRUGGS Primary Care Unavailable JACEK SCRUGGS Attending Unavailable JACEK SCRUGGS Primary Care Unavailable JACEK SCRUGGS Referring Unavailable QUIN MENDEZ Attending Unavailable JACEK SCRUGGS Primary Care Unavailable MALOU BAEZ Attending Unavailable ROBYN HARRIS Referring Unavailable SHEBA, JACEK Rashid Primary Care Unavailable JACEK SCRUGGS Attending Unavailable JACEK SCRUGGS Primary Care Unavailable JACEK SCRUGGS Primary Care Unavailable ROBYN HARRIS Attending Unavailable ROBYN HARRIS Referring Unavailable JACEK SCRUGGS Primary Care Unavailable JACEK SCRUGGS Primary Care Unavailable JUDITH NEWMAN Attending Unavailable JACEK SCRUGGS Primary Care Unavailable JACEK SCRUGGS Referring Unavailable JACEK SCRUGGS Primary Care Unavailable ROBYN HARRIS Attending Unavailable JACEK SCRUGGS Primary Care Unavailable DILLON KIM Referring Unavailable JACEK SCRUGGS Primary Care Unavailable JACEK SCRUGGS Attending Unavailable SELF Referring Unavailable SHEBA, JACEK Rashid Primary Care Unavailable JACEK SCRUGGS Referring Unavailable JACEK SCRUGGS Primary Care Unavailable JACEK SCRUGGS Referring Unavailable ROBYN HARRIS Attending Unavailable JACEK SCRUGGS Primary Care Unavailable JACEK SCRUGGS Attending Unavailable JACEK SCRUGGS Primary Care Unavailable ROBYN HARRIS Attending Unavailable JACEK SCRUGGS Primary Care Unavailable ROBYN HARRIS Attending Unavailable ROBYN HARRIS Referring Unavailable JACEK SCRUGGS Attending Unavailable JACEK SCRUGGS Primary Care Unavailable PROBLEMS DATE TYPE CONDITION / CODE ATTENDING STATUS JUSTIN RCE 07/17/2017 Active Other migraine w ithout status migrainosus, not intractable / G43.809(ICD-10) GABRIEL COLON [facility] 06/17/2025 Active Nausea and vomit ing, unspecified vomiting type / R11.2(ICD-10) GABRIEL COLON Active [facility] 06/17/2025 Active Dehydration / E86.0(ICD-10) GABRIEL COLON Active [facility] 06/17/2025 Active Medication side effect / T88.7XXA(ICD-10) GABRIEL COLON Active [facility] 09/16/2021 Active Postlaminectomy syndrome / M96.1(ICD-10) JACEK SCRUGGS Active [facility] 03/20/2025 Active Gastro-esophagea l reflux disease without esophagitis / K21.9(ICD-10) JACEK SCRUGGS Active [facility] 03/03/2025 Active Diplopia / H53.2(ICD-10) RAMO REECE Active [facility] 03/03/2025 Active Complication of anesthesia, initial encounter / T88.59XA(ICD-10) ADRIAN REECE Active [facility] 03/03/2025 Active Screen for colon cancer / Z12.11(ICD-10) MINI MCKEON GYPSY [facility] 06/01/2023 Active History of colon ic polyps / Z86.0100(ICD-10) GYPSY AGRAWAL [facility] 03/03/2025 Active Encounter for sc reening colonoscopy / Z12.11(ICD-10) GYPSY AGRAWAL [facility] 07/17/2017 Active Intractable asset recovery specialist 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 / G43.E19(ICD-10) MALOU BAEZ Active [facility] 08/03/2024 Active Primary hyperten claudette / I10(ICD-10) JACEK SCRUGGS Active [facility] 11/13/2022 Active Anxiety / F41.9(ICD-10) JACEK SCRUGGS Active [facility] 11/29/2012 Active Basal cell carci noma (BCC), unspecified site / C44.91(ICD-10) JACEK SCRUGGS Active [facility] 01/16/2025 Active Adjustment disor romaine with anxious mood / F43.22(ICD-10) JACEK SCRUGGS [facility] 08/24/2023 Active Acute left-sided thoracic back pain / M54.6(ICD-10) JACEK SCRUGGS Active [facility] 08/30/2024 Active Screening breast examination / Z12.39(ICD-10) NA Active [facility] 07/28/2024 Active Pain / R52(ICD-10) NA Active [facility] 07/04/2024 Active Pain of right lo wer extremity / M79.604(ICD-10) JACEK SCRUGGS [facility] 07/04/2024 Active DDD (degenerativ e disc disease), lumbar / M51.369(ICD-10) JACEK SCRUGGS [facility] 07/04/2024 Active Degeneration of intervertebral disc of lumbar region, unspecified whether pain present / M51.369(ICD-10) JACEK SCRUGGS [facility] PROCEDURES No Procedure Records Found RESULTS ED NOTE Observed: 06/17/2025 7:06 PM Status: COMPLETED Source: [facility] HNO ID: [id number] Author: KEYANA MCCORMACK MD Service: Emergency Medicine Author Type: Physician Type: ED Notes Filed: 06/18/2025 09:37 Note Text: Emergency Services: ED Call Back Questionnaire SERVICE DATE: 06/17/2025 Are you feeling better? Yes Any questions about discharge instructions and follow-up care? No Were you able to make a follow up appointment? Yes Do you have any further questions? No Is there anything that we could have done differently to improve your ED visit? No SIGNATURE: Keyana Mccormack MD PATIENT NAME: Anastasia Simpson DATE: June 18, 2025 TIME: 9:37 AM ED NOTE Observed: 06/17/2025 6:22 PM Status: COMPLETED Source: [facility] HNO ID: [id number] Author: NATALIA COHEN RN Service: ? Author Type: Registered Nurse Type: ED Notes Filed: 06/17/2025 18:25 Note Text: Reglan infusion stopped, pt reports it is making me feel jittery. ED NOTE Observed: 06/17/2025 5:09 PM Status: COMPLETED Source: [facility] HNO ID: [id number] Author: NATALIA COHEN RN Service: ? Author Type: Registered Nurse Type: ED Notes Filed: 06/17/2025 17:10 Note Text: Patient informed: the name of medication, why we are giving it, possible side effects, what they may expect to feel, and was offered a chance to ask questions, prior to the administration of Zofran, Solu-Medrol, NaCl ED PROV NOTE Observed: 06/17/2025 4:39 PM Status: COMPLETED Source: [facility] HNO ID: [id number] Author: GABRIEL COLON MD Service: Emergency Medicine Author Type: Physician Type: ED Provider Notes Filed: 06/18/2025 06:56 Note Text: ED Provider Note Patient Name: Anastasia Simpson : 1975 SERVICE DATE: 06/17/25 History Patient presents with: Vomiting Patient with past history of chronic migraines, presents to the emergency department for concerns over dehydration, nausea, vomiting, and loose stools. Patient is accompanied to the ER with her mother. Patient has recent been following the primary care physician, they have been titrating her long-term chronic migraine medications. Patient was long-term on Imitrex, which was changed to Relpax rather recently. Patient had concerns with side effects secondary to the above this was discontinued, and she was now started on Depakote burst. Shortly after began the Depakote burst, patient's previously noted side effects including nausea vomiting and loose stools seem to significantly worsen and patient is concerned that this is causing her symptoms. Patient has no known sick contacts, no current antibiotic usage, and no travel. Patient denies blood in her emesis or stool, and fevers. Patient was given Compazine for the above however she was afraid of the side effects and did not take this. Patient has previously taken Zofran, however she states the occupational health nurse manager recently changed and she cannot tolerate this either. Headache Pain location: Generalized Quality: Dull Radiates to: Does not radiate Onset quality: Gradual Timing: Intermittent Progression: Waxing and waning Chronicity: Chronic Similar to prior headaches: yes Relieved by: Nothing Ineffective treatments: None tried Associated symptoms: nausea and vomiting Associated symptoms: no abdominal pain, no neck pain and no seizures PAST MEDICAL HISTORY Diagnosis Date Basal cell carcinoma 2011, 2015 multiple sites High blood pressure History of colonic polyps Moderate major depression, single episode (HCC) 11/13/2020 Other migraine without status migrainosus, not intractable PMH - PAST MEDICAL HISTORY OF irritable bowel syndrome PMH - PAST MEDICAL HISTORY OF back pain PMH - PAST MEDICAL HISTORY OF Injections L4-L5 by Dr Knox in [place] Primary hypertension PAST SURGICAL HISTORY Procedure Laterality [...] 40s Breast Cancer Maternal Aunt 50s Social History[1] ALLERGIES Allergen Reactions Celestone [Betameth* Other: See Comments Cheeks and neck red and hot- felt like she had a fever in top 1/2 of body, other steroids have been ok Codeine GI UPSET, HEART RACES Emgality Pen [Galca* Hives Neurontin [Gabapent* Other: See Comments Extreme dizziness Sulfa (Sulfonamide * UNKNOWN Review of Systems Gastrointestinal: Positive for nausea and vomiting. Negative for abdominal pain. Musculoskeletal: Negative for neck pain. Neurological: Positive for headaches. Negative for seizures. All other systems reviewed and are negative. Physical Exam Vitals [06/17/25 1316] BP Pulse Temp Temp src Resp SpO2 Weight Height 135/104 (!) 101 36.5 ?C (97.7 ?F) Temporal 14 100 % 56.2 kg (124 lb) 1.676 m (5' 6) Physical Exam Vitals and nursing note reviewed. Constitutional: General: She is not in acute distress. Appearance: Normal appearance. She is not ill-appearing or toxic-appearing. HENT: Head: Normocephalic and atraumatic. Eyes: General: Right eye: No discharge. Left eye: No discharge. Pulmonary: Effort: No respiratory distress. Abdominal: General: There is no distension. Palpations: Abdomen is soft. There is no hepatomegaly, mass or pulsatile mass. Tenderness: There is no abdominal tenderness. Skin: General: Skin is warm and dry. Neurological: General: No focal deficit present. Mental Status: She is alert and oriented to person, place, and time. Mental status is at baseline. Comments: Patient is awake alert oriented x 3, she makes eye contact, she is conversational, she is pleasant, she follows simple commands able to give a decent remote and recent history without any complications. Symmetric face and smile, equal handgrip strength, equal upper extremity muscle strength, patient minutes to ambulating into the room with a safe and stable non-ataxic gait Psychiatric: Mood and Affect: Mood normal. Behavior: Behavior normal. Diagnostic Testing ED Labs Ordered and Reviewed COMPLETE BLOOD COUNT - Abnormal; Notable for the following components: Result Value Ref Range Hematocrit 46.1 (*) 36.0 - 46.0 % All other components within normal limits URINALYSIS (WITH MICROSCOPIC) WITH CULTURE IF INDICATED - Abnormal; Notable for the following components: Color Dark Yellow (*) Yellow Clarity Cloudy (*) Clear Bilirubin, Urine 1+ (*) Negative Ketones, Urine 3+ (*) Negative Specific Enloe, Ur >=1.030 (*) 1.005 - 1.030 Protein, Urine 2+ (*) Negative WBC, Urine 6-10 /HPF (*) 0-5 /HPF Bacteria Many (*) None Seen /HPF Casts, Hyaline 4-10 /LPF (*) 0 /LPF All other components within normal limits BASIC METABOLIC PANEL - Normal MAGNESIUM - Normal HCG QUANTITATIVE - Normal Procedures ED Course / Clinical Impression Clinical Impressions as of 06/18/25 0650 Nausea and vomiting, unspecified vomiting type Dehydration Other migraine without status migrainosus, not intractable Medication side effect - possible medication side effect MDM / Disposition / Plan This is a 49-year-old female longstanding history of chronic migraines for years who presents to the emergency room with her mom, for concerns of a possible complication side effects of her recent migraine medications and dehydration with concerns over nausea, vomiting, and soft stools. Patient is concerned that the above are likely the left related to side effects of patient's migraine medications. Patient was recently switched to Relpax, and now Depakote secondary to side effects of the above. Patient's presentation could be a complication of these medications however I think more likely is secondary to a viral type illness as it appears some of the symptoms began prior to the medication changes, and patient does have soft stools, which I do not believe are a complication of these migraine medications, or at least not a common 1. Patient has a normal neurologic examination here in the emergency department, she appears otherwise comfortable, she have stable vitals without fever, and no focus of infection is appreciated on examination. Patient has a longstanding history of migraines and with a normal neurologic examination imaging is not warranted today. Patient was treated symptomatically in the emergency department, with repeat doses of IV fluids, and antiemetics, until she felt appropriately improved for discharge home. Laboratory workup demonstrates normal labs BUN, creatinine, and CBC was without leukocytosis or anemia. Urinalysis did demonstrate a moderate amount of ketones likely consistent with dehydration, patient is not diabetic. I did discuss with patient, treatment plan going home, and it was somewhat difficult to find an acceptable regimen for patient. She has complications, possible related side effects of the 2 medications she was just recently placed on by her neurology team and she does not feel comfortable in continuing these. Patient did get some relief in the past with a Medrol Dosepak, she has not been on this for at least a month I am going to prescribe this to her again. Speaking further with patient, she did have adequate relief in the past with Imitrex and I am giving her a short course refill of this going forward. Patient is instructed to not take Depakote, or Relpax, while she is on the Imitrex. Patient should follow-up with her neurologist, as now there is been multiple changes in her chronic migraine medications over a short period of time that appear to have been made excluding refills by me, her neurology team, and as well as her primary care physician with online notes made to the above which is likely complicating the issue. Patient was caution and it was highlighted that she needs to get all her medications from 1 provider going forward. Please note this report has been produced using speech recognition software and may contain errors related to that system including errors in grammar, punctuation, and spelling, as well as words and phrases that may be inappropriate. If there are any questions or concerns please feel free to contact the dictating physician for clarification. Differential Diagnoses - possible medication side effect - cva is less likely for the following reason(s): HANDP not suggestive Disposition The patient was discharged. Counseled patient regarding suspected diagnosis and lab results. SIGNATURE: Gabriel Colon MD - [1] Social History Tobacco Use Smoking status: Never Smokeless tobacco: Never Vaping Use Vaping status: Never Used Substance and Sexual Activity Alcohol use: No Drug use: No Sexual activity: Yes Partners: Male Comment: GABRIEL Cherry 06/18/25 0656 ED NOTE Observed: 06/17/2025 4:03 PM Status: COMPLETED Source: [facility] HNO ID: [id number] Author: NATALIA COHEN RN Service: ? Author Type: Registered Nurse Type: ED Notes Filed: 06/17/2025 16:30 Note Text: Pt report headache feels about the same, my migraines are relentless. Pt reports some improvement when asked if nausea has improved, it is always better when I am laying down. URINALYSIS COMPLETE PNL UR Collected: 06/17/2025 2:57 PM Status: F Source: [facility] Order Comment: Specimen Type : URINE SPECIMEN Ordering Facility: [facility] Address: [address] [place] [address] TYPE CODE TESTS RESULT OUT OF RANGE REFERENCE UNITS LAB 5778-6(LOINC) Color Ur Dark Yellow Abnormal Yellow LAB 85670-0(LOINC) Clarity Spec Cloudy Abnormal Clear LAB 5792-7(LOINC) Glucose Ur Strip-mCnc Negative Negative LAB 5770-3(LOINC) Bilirub Ur Ql Strip 1+ Abnormal Negative Result Comment: Suggest epi elation with clinical findings and serum bilirubin if clinically indicated. LAB 2514-8(LOINC) Ketones Ur Strip 3+ Abnormal Negative LAB 5811-5(LOINC) Sp Gr Ur Strip >=1.030 High 1.005-1.030 LAB 5794-3(LOINC) Hgb Ur Ql Strip Negative Negative LAB 5803-2(LOINC) pH Ur Strip 6.0 5.0-8.0 LAB 5804-0(LOINC) Prot Ur Strip-mCnc 2+ Abnormal Negative LAB 5818-0(LOINC) Urobilinogen Ur Strip 0.2 EU/dL 0.2-1.0 EU/dL LAB 5802-4(LOINC) Nitrite Ur Ql Strip Negative Negative LAB 5799-2(LOINC) Leukocyte esterase Ur Ql Strip Negative Negative LAB 5821-4(LOINC) WBC #/area UrnS HPF 6-10 /HPF Abnormal 0-5 /HPF LAB 86323-1(LOINC) RBC #/area UrnS HPF 0-3 /HPF 0-3 /HPF LAB 5769-5(LOINC) Bacteria #/area UrnS HPF Many Abnormal None Seen /HPF LAB 5787-7(LOINC) Epi Cells #/area UrnS HPF Few /HPF LAB 5796-8(LOINC) Hyaline Casts #/area UrnS LPF 4-10 /LPF Abnormal 0 /LPF Performed By: #### 27160-6 # ### [facility] CLIA [id number] [address] [place] [id number] [place] BAS METAB 2000 PNL SERPL Collected: 2:56 PM Status: F Source: [facility] Order Comment: Specimen Type : BLOOD SPECIMEN Ordering Facility: [facility] Address: [address] [place] [address] TYPE CODE TESTS RESULT OUT OF RANGE REFERENCE UNITS LAB 2345-7(LOINC) Glucose SerPl-mCnc 84 74-99 mg/dL Result Comment: The [place] Diabetes Association (ADA) provides guidance for cutoff [...] Standards of Medical Care in Diabetes 2016, [place] [employer]. Diabetes Care. 2016.39(Suppl 1). LAB 3094-0(LOINC) BUN SerPl-mCnc 11 7-21 mg/dL LAB 2160-0(LOINC) Creat SerPl-mCnc 0.69 0.58-0.96 mg/dL LAB 2951-2(LOINC) Sodium SerPl-sCnc 139 136-144 mmol/L LAB 2823-3(LOINC) Potassium SerPl-sCnc 4.2 3.7-5.1 mmol/L LAB 2075-0(LOINC) Chloride SerPl-sCnc 102 98-107 mmol/L LAB 2028-9(LOINC) CO2 SerPl-sCnc 22 22-30 mmol/L LAB 00503-6(LOINC) Anion Gap SerPl-sCnc 15 8-15 mmol/L LAB 23688-7(LOINC) Calcium SerPl-mCnc 9.6 8.5-10.2 mg/dL LAB 50512-8(LOINC) eGFRcr SerPlBld CKD-EPI 2020 107 >=60 mL/min/1. 73m??? Result Comment: Estimated Gl omerular Filtration Rate (eGFR) is calculated using the 2020 CKD-EPI creatinine equation. This equation utilizes serum creatinine, sex, and age as parameters. The creatinine assay has traceable calibration to isotope dilution-mass spectrometry. Refer to KDIGO guidelines for clinical interpretation. In patients with unstable renal function, e.g. those with acute kidney injury, the eGFR may not accurately reflect actual GFR. Performed By: #### 65661-0, 50213-6 #### [facility] CLIA [id number] [address] [place] [address] [facility] MAGNESIUM SERPL-MCNC Collected: 06/17/2025 2:56 PM S tatus: F Source: [facility] Order Comment: Specimen Type : BLOOD SPECIMEN Ordering Facility: [facility] Address: [address] [place] [address] TYPE CODE TESTS RESULT OUT OF RANGE REFERENCE UNITS LAB 25515-6([facility]) Magnesium SerPl-mCnc 2.2 1.7-2.3 mg/dL Performed By: #### 41934-1, 81995-0 #### [facility] CLIA [id number] [address] [place] [address] [facility] CBC PNL BLD AUTO Collected: 06/17/2025 2:56 PM Statu s: F Source: [facility] Order Comment: Specimen Type : BLOOD SPECIMEN Ordering Facility: [facility] Address: [address] [place] [address] TYPE CODE TESTS RESULT OUT OF RANGE REFERENCE UNITS LAB 6690-2([facility]) WBC # Bld Auto 8.75 3.70-11.00 k/uL LAB 789-8([facility]) RBC # Bld Auto 5.11 3.90-5.20 m/ uL LAB 718-7([facility]) Hgb Bld-mCnc 14.9 11.5-15.5 g/dL LAB 4544-3([facility]) Hct VFr Bld Auto 46.1 High 36.0-46.0 % LAB 787-2([facility]) MCV RBC Auto 90.2 80.0-100.0 fL LAB 785-6([facility]) MCH RBC Qn Auto 29.2 26.0-34.0 pg LAB 786-4([facility]) MCHC RBC Auto-mCnc 32.3 30.5-36.0 g/dL LAB 70627-1([facility]) RDW RBC-Rto 12.7 11.5-15.0 % LAB 777-3([facility]) Platelet # Bld Auto 279 150-400 k/uL LAB 46554-0([facility]) PMV Bld Auto 10.4 9.0-12.7 fL Performed By: #### 48064-2 # ### [facility] CLIA [id number] [address] [place] [address] [facility] B-HCG SERPL-ACNC Collected: 06/17/2025 2:56 PM Statu s: F Source: [facility] Order Comment: Specimen Type : BLOOD SPECIMEN Ordering Facility: [facility] Address: [address] [place] [address] TYPE CODE TESTS RESULT OUT OF RANGE REFERENCE UNITS LAB 26008-2(LOINC) B-HCG SerPl-aCnc <0.6 <5.0 mIU/mL Result Comment: Negative Performed By: #### 12075-0 # ### [facility] CLIA [id number] [address] [place] [address] [facility] ED NOTE Observed: 06/17/2025 1:24 PM Status: COMPLETED Source: [facility] HNO ID: [id number] Author: NATALIA COHEN RN Service: ? Author Type: Registered Nurse Type: ED Notes Filed: 06/17/2025 13:27 Note Text: Pt arrives with report of vomiting which began early this morning. Pt reports she took her first dose of Depakote for migraine. Pt reports weakness, nausea and vomiting last week due to what I thought was a virus. Pt had previously been taking Relpak. Pt took the last dose of that medication on since she would be starting the Depakote. Pt has been prescribed Compazine which she did not fill, I have heard a lot of bad things about that medication like people hallucinating. SCARLETT Observed: 06/15/2025 12:00 AM Status: COMPLETED Source: [facility] Telephone (HEATHER) ANASTASIA SIMPSON ([id number]) 1975 F Date Time Provider Department 06/15/25 ROBYN HARRIS During your visit today, we recorded the following information about you: Jaylen Vidal, RN 06/15/2025 3:23 PM Signed Pt calling in stating she is not feeling well. States she has been having N/V, diarrhea for about a week and a half. And the last few days, she has noticed that she is feeling overwhelmingly weak and so fatigued that she can barely get up to walk to the bathroom. Pt states she sees Robynjin Vegalola for migraines and on 06/02, she was put on Relpax 20 mg for her migraines. Pt sent in a MyChart msg on 06/09 stating the med was only helping about 70% so Robyn increased med to 40 mg. On that same day, pt called and requested a refill on her Sumatriptan (Imitrex) from Dr. Scruggs. Pt states the Relpax wasn't helping get rid of her migraines so she wanted to have Sumatriptan on hand as well. When asked how often she is taking the Relpax, Pt states she has been taking a Relpax daily since it was prescribed. Pharmacy would only fill one of the scripts so pt told them to fill the Relpax. States the pharmacy told her they would put the Sumatriptan prescription on hold. Informed pt that it is not good practice to contact 2 providers for the same thing and that if she is seeing Robyn Harris for her migraines then she should only reach out to her regarding medications. Pt got online and read side effects of Relpax so she thinks that is what is making her so weak, fatigued and causing the N/V AND diarrhea. Discussed with pt that when she messaged last week and requested both an increase in the Relpax from Robyn Harris and requested the Imitrex from Dr. Scrugsg, why didn't she mention anything about feeling sick or needing the migraine medicine daily. Pt states she thought she had a virus and it wasn't until she looked up side effects today that she realized it is from the medication. Discussed with pt if she feels she is staying hydrated. Pt states she vomited once so far today and that was this morning. The last time she vomited was about a day and a half ago. Pt is extremely nauseous but states she has been able to keep water, broth and noodles down. States she is having diarrhea 3-4 times a day. Denies feeling dehydrated as she said she is urinating normal amounts and is drinking a lot of water. Pt states the Relpax 40 mg helped her migraines but they still return 24 hours later. Now she is concerned because of the side effects from the Relpax that she knows she needs to stop it. But she is wondering how she can get the pharmacy to fill her Imitrex now. Noted that the Imitrex prescription was cancelled when the Relpex 40 mg was ordered. Pt cannot have both medications. Explained would send all this information to Robyn Harris. After hung up with pt and reviewed Relpex sig, noted the following: Take 1 tablet by mouth as needed. For migraine. May repeat after 2 hr. Max: 2/Day, 3 Days/Week, 10/month Called pt back and read these instructions to her as she has been taking too much of the medication. Pt did not sound surprised when I read these instructions to her. Asked pt if she has had to repeat a dose in 2 hours. She states no that the Relpax helped but then her migraines return in 24 hours. Pt uses [facility] pharmacy and states she needs medication called in for both nausea and for migraines since she can no longer take the Relpax and the Imitrex script has been cancelled. Pt states [facility] has a different occupational health nurse manager for Zofran and with this occupational health nurse manager, the Zofran makes her so dizzy that she cannot take it. Asking for something different to be called in for nausea for her. Jaylen Vidal, MARTITA 06/15/2025 4:04 PM Signed Message back to Robyn as pt is still currently taking one Relpax a day. Took one this morning and still has some left. Pt wanting something else for migraine headaches and something else prescribed other than Zofran for nausea. Requesting patient follow with primary care for nausea, vomiting and diarrhea. Relpax as well as imitrex typically wear off after 24 hours so if symptoms persisted it is likely not the medication. Agree that she is taking too much rescue medications. Do not feel refill is warranted at this time if she has taken a months supply already, taking more would actually worsen headaches. HORTENSIA Jaimes Melanie, PA-C 06/15/2025 4:10 PM Signed [facility]. Take two tablets at bedtime for five days then one tablet at bedtime for five days. Encouraged follow up if headaches persist. Did send in compazine for nausea, take instead of zofran. HORTENSIA Jaimes Barbara, RN 06/15/2025 4:24 PM Signed Called and spoke with pt and given her Robyn's instructions and information regarding medication. Pt instructed to not take any more Relpax or Imitrex at this time. Notified it may take the 10 days to break the headache but if no relief, should go to ER for follow up. Pt also encouraged/reminded to only take headache medication when she actually has a migraine and try not to take it daily as a preventative out of fear of getting a migraine. Pt states she hasn't. States she truly has been getting a migraine daily. Pt also encouraged to keep Robyn updated regarding migraines. Also notified that if she stops the Relpax but the N/V, diarrhea, weakness and fatigue continue, she needs to follow up with PCP. Also requested that pt contact only Robyn regarding migraines so that medications/providers are not overlapping each other and not aware of what is going on. Pt verbalizes understanding. Allergies As of Date: 06/15/2025 Noted Allergy Reaction CELESTONE (BETAMETHASONE SODIUM P*12/19/2010 [...] (SULFONAMIDE ANTIBIOTICS) 07/01/2004 Comments: UNKNOWN Date Reviewed: 05/10/2025 Reviewed by: Robyn Harris PA-C - Fully Assessed Reason for Visit: Medication Problem [65] Cmt: eletriptan Order(s):divalproex DR (DEPAKOTE) 500 mg EC tabletTake two tablets at bedtime for five days then one tablet for five daysDisp: 15 tabletRfl: 0 prochlorperazine (COMPAZINE) 10 mg tabletTake 1 tablet by mouth every 8 hours as needed.Disp: 45 tabletRfl: 1 Prescriptions as of 06/15/2025 - divalproex DR (DEPAKOTE) 500 mg EC tablet Take two tablets at bedtime for five days then one tablet for five days - prochlorperazine (COMPAZINE) 10 mg tablet Take 1 tablet by mouth every 8 hours as needed. - eletriptan (RELPAX) 40 mg tablet Take 1 tablet by mouth as needed. For migraine. May repeat after 2 hr. Max: 2/Day, 3 Days/Week, 10/month - HYDROcodone-acetaminophen (NORCO) 5-325 mg per tablet Take 1 tablet by mouth every 6 hours as needed for up to 30 days. - onabotulinum toxin type A (BOTOX) 200 unit injection Inject 200 Units intramuscularly every 12 weeks. - propranolol ER (INDERAL LA) 60 mg 24 hr capsule Take 1 capsule by mouth once daily. - valACYclovir (VALTREX) 1 gram tablet Take 1 tablet by mouth two times a day. - progesterone micronized (PROMETRIUM) 100 mg capsule Take 100 mg by mouth once daily. - estradiol (MINIVELLE, VIVELLE-DOT) 0.0375 mg/24 hr patch Apply 1 patch as directed two times a week. - omeprazole (PRILOSEC) 20 mg capsule Take 1 capsule by mouth daily before breakfast. 1/2 hr before meal. - mometasone (ELOCON) 0.1 % cream Apply 1 application to affected area once daily. - SENNOSIDES 8.6 MG TAB as needed for constipation Problem List As Of Date 06/15/2025 Noted Resolved Headache [R51] 10/05/2007 11/07/2009 Postlaminectomy [...] 09/24/2022 Screen for colon cancer [Z12.11] 03/03/2025 Prescriptions ordered this encounter Disp Refills Start End DIVALPROEX 500 MG TABLET,DELAYED REL* 15 t* 0 06/15/2025 Sig: Take two tablets at bedtime for five days then one tablet for five days PROCHLORPERAZINE MALEATE 10 MG TABLET 45 t* 1 06/15/2025 Route: PO Sig: Take 1 tablet by mouth every 8 hours as needed. Medications Discontinued During This Encounter Prescriptions - ondansetron orally disintegrating (ZOFRAN ODT) 4 mg disintegrating tablet (Discontinued) Take 1 tablet by mouth every 6 hours as needed for nausea/vomiting. Encounter Status:Closed by JAYLEN VIDAL on 06/15/25 BOONEN Observed: 06/09/2025 12:00 AM Status: COMPLETED Source: [facility] ANASTASIA SIMPSON ([id number]) 1975 F Date Time Provider Department 06/09/25 JACEK SCRUGGS [facility] During your visit today, we recorded the following information about you: Nguyen Pete 06/09/2025 9:37 AM Signed Prescription Refill Information The patient has been identified by name and date of : Yes Caregiver verified no other encounters exist for this prescription request: Yes Caregiver confirmed with patient/requestor that no other refills are due, in the near future, with this provider at this time: Yes The last office visit in the department: 03-20-25 Does the patient have a future office visit with this provider/department: Yes Disp Refills Start End SUMAtriptan (IMITREX) 100 mg tablet (Discontinued) 9 tablet 11 02/16/2025 06/02/2025 Sig: Take 1 tablet by mouth once daily as needed for migraine headache (see administration instructions) (may repeat once in 24 hours.). Sent to pharmacy as: SUMAtriptan (IMITREX) 100 mg tablet Class: Normal Route: ORAL Pharmacy has been updated in [facility] June 09, 2025 9:33 AM [facility] Claire Nguyen John 06/09/2025 9:37 AM Signed Neuro gave her eletriptan a week ago in place of the Imitrex, but patient states it does not work well and is asking to have the Imitrex sent in as a back up. Pharmacy had refills of the Imitrex, but they were cancelled. Please call patient [phone] Cori Hanson MA 06/09/2025 9:47 AM Signed Patient did send message to [facility] provider through [employer] and waiting for response ANUSHA Herrera William J, MD 06/09/2025 1:47 PM Signed Rx sent Allergies As of Date: 06/09/2025 Noted Allergy Reaction CELESTONE (BETAMETHASONE SODIUM P*12/19/2010 [...] (SULFONAMIDE ANTIBIOTICS) 07/01/2004 Comments: UNKNOWN Date Reviewed: 05/10/2025 Reviewed by: Robyn Harris PA-C - Fully Assessed Reason for Visit: Refill Request [94] Primary Visit Diagnosis:Other migraine without status migrainosus, not intractable [G43.809] Order(s):SUMAtriptan (IMITREX) 100 mg tabletTake 1 tablet by mouth as needed for migraine headache (see administration instructions). May repeat dose after 2 hours if needed. Maximum daily dose is 200 mg per day.Disp: 9 tabletRfl: 11 Prescriptions as of 06/09/2025 - SUMAtriptan (IMITREX) 100 mg tablet Take 1 tablet by mouth as needed for migraine headache (see administration instructions). May repeat dose after 2 hours if needed. Maximum daily dose is 200 mg per day. - HYDROcodone-acetaminophen (NORCO) 5-325 mg per tablet Take 1 tablet by mouth every 6 hours as needed for up to 30 days. - ondansetron orally disintegrating (ZOFRAN ODT) 4 mg disintegrating tablet Take 1 tablet by mouth every 6 hours as needed for nausea/vomiting. - onabotulinum toxin type A (BOTOX) 200 unit injection Inject 200 Units intramuscularly every 12 weeks. - propranolol ER (INDERAL LA) 60 mg 24 hr capsule Take 1 capsule by mouth once daily. - valACYclovir (VALTREX) 1 gram tablet Take 1 tablet by mouth two times a day. - progesterone micronized (PROMETRIUM) 100 mg capsule Take 100 mg by mouth once daily. - estradiol (MINIVELLE, VIVELLE-DOT) 0.0375 mg/24 hr patch Apply 1 patch as directed two times a week. - omeprazole (PRILOSEC) 20 mg capsule Take 1 capsule by mouth daily before breakfast. 1/2 hr before meal. - mometasone (ELOCON) 0.1 % cream Apply 1 application to affected area once daily. - SENNOSIDES 8.6 MG TAB as needed for constipation Problem List As Of Date 06/09/2025 Noted Resolved Headache [R51] 10/05/2007 11/07/2009 Postlaminectomy [...] 09/24/2022 Screen for colon cancer [Z12.11] 03/03/2025 Prescriptions ordered this encounter Disp Refills Start End SUMATRIPTAN 100 MG TABLET 9 ta* 11 06/09/2025 Route: PO Sig: Take 1 tablet by mouth as needed for migraine headache (see administration instructions). May repeat dose after 2 hours if needed. Maximum daily dose is 200 mg per day. Medications Discontinued During This Encounter Prescriptions - eletriptan (RELPAX) 20 mg tablet (Discontinued) Take 1 tablet by mouth as needed. at the onset of migraine headache. No more than 2 in 24 hours and 10 in a month. Encounter Status:Closed by JACEK SCRUGGS on 06/09/25 SCARLETT Observed: 05/19/2025 12:00 AM Status: COMPLETED Source: [facility] Telephone ([facility]) ANASTASIA SIMPSON ([id number]) 1975 F Date Time Provider Department 05/19/25 ROBYN HARRIS During your visit today, we recorded the following information about you: Conchis Serrano LPN 05/19/2025 9:36 AM Signed Patient calling her medrol dose pack rx went to wrong pharmacy, she uses [facility] pharmacy. Reset rx to file. Please advise The patient has been identified by name and date of : Yes Caregiver verified no other encounters exist for this prescription request: Yes Caregiver confirmed with patient/requestor that no other refills are due, in the near future, with this provider at this time: Yes The last office visit in the department: 05/10/2025 Does the patient have a future office visit with this provider/department: Yes 08/08/2025 Requested Prescriptions Pending Prescriptions Disp Refills methylPREDNISolone (MEDROL, YAKELIN,) 4 mg Dose-Pack 21 tablet 0 Sig: Take as directed Conchis Serrano LPN May 19, 2025 9:36 AM Allergies As of Date: 05/19/2025 Noted Allergy Reaction CELESTONE (BETAMETHASONE SODIUM P*12/19/2010 [...] (SULFONAMIDE ANTIBIOTICS) 07/01/2004 Comments: UNKNOWN Date Reviewed: 05/10/2025 Reviewed by: Robyn Harris PA-C - Fully Assessed Reason for Visit: Medication Problem [65] rx went to wrong pharmacy [Other] Order(s):[] methylPREDNISolone (MEDROL, YAKELIN,) 4 mg Dose-PackTake as directedDisp: 21 tabletRfl: 0 Prescriptions as of 06/03/2025 - eletriptan (RELPAX) 20 mg tablet Take 1 tablet by mouth as needed. at the onset of migraine headache. No more than 2 in 24 hours and 10 in a month. - HYDROcodone-acetaminophen (NORCO) 5-325 mg per tablet Take 1 tablet by mouth every 6 hours as needed for up to 30 days. - ondansetron orally disintegrating (ZOFRAN ODT) 4 mg disintegrating tablet Take 1 tablet by mouth every 6 hours as needed for nausea/vomiting. - onabotulinum toxin type A (BOTOX) 200 unit injection Inject 200 Units intramuscularly every 12 weeks. - propranolol ER (INDERAL LA) 60 mg 24 hr capsule Take 1 capsule by mouth once daily. - valACYclovir (VALTREX) 1 gram tablet Take 1 tablet by mouth two times a day. - progesterone micronized (PROMETRIUM) 100 mg capsule Take 100 mg by mouth once daily. - estradiol (MINIVELLE, VIVELLE-DOT) 0.0375 mg/24 hr patch Apply 1 patch as directed two times a week. - omeprazole (PRILOSEC) 20 mg capsule Take 1 capsule by mouth daily before breakfast. 1/2 hr before meal. - mometasone (ELOCON) 0.1 % cream Apply 1 application to affected area once daily. - SENNOSIDES 8.6 MG TAB as needed for constipation Problem List As Of Date 05/19/2025 Noted Resolved Headache [R51] 10/05/2007 11/07/2009 Postlaminectomy [...] 09/24/2022 Screen for colon cancer [Z12.11] 03/03/2025 Prescriptions ordered this encounter Disp Refills Start End METHYLPREDNISOLONE 4 MG TABLETS IN A* 21 t* 0 05/19/2025 05/25/2025 Sig: Take as directed Medications Discontinued During This Encounter Prescriptions - methylPREDNISolone (MEDROL, YAKELIN,) 4 mg Dose-Pack (Discontinued) Take as directed Encounter Status:Closed by CONCHIS SERRANO on 06/03/25 CNOV Observed: 05/10/2025 3:30 PM Status: COMPLETED Source: [facility] Office Visit ([facility]) ANASTASIA SIMPSON ([id number]) 1975 F Date Time Provider Department 05/10/25 [...] for migraine Informed Consent Consent Obtained: Written [place] Protocol A moment to CARE was completed [...] collected. Written Consent Obtained: Written LOT #: [id number] Expiration Date: Month: 3 Year: 2027 Injection Sites Left (Units) Left (Sites) Right (Units) Right (Sites) TOTAL (Units) [employer]er 5 1 5 1 10 Procerus Units: [...] better *< 31st percentile is at least ? SD worse than population, which may be clinically relevant < 16th percentile is at least 1 SD worse than population and warrants attention Robyn Harris PA-C 05/10/2025 3:17 PM Signed Botox Home Instruction: Instruction after [...] for further instructions. Referring Provider: ROBYN HARRIS [[id number]] Allergies As of Date: 05/10/2025 Noted Allergy Reaction CELESTONE (BETAMETHASONE SODIUM P*12/19/2010 [...] (SULFONAMIDE ANTIBIOTICS) 07/01/2004 Comments: UNKNOWN Date Reviewed: 05/10/2025 Reviewed by: Robyn Harris PA-C - Fully Assessed Reason for Visit: Follow Up [171] Cmt: Botox injection Primary Visit Diagnosis:Intractable chronic migraine with aura and without status migrainosus [G43.E19] Order(s):[] onabotulinum toxin type A 200 Units injection (BOTOX)Disp: Rfl: Prescriptions as of 05/10/2025 - HYDROcodone-acetaminophen (NORCO) 5-325 mg per tablet Take 1 tablet by mouth every 6 hours as needed for up to 30 days. - ondansetron orally disintegrating (ZOFRAN ODT) 4 mg disintegrating tablet Take 1 tablet by mouth every 6 hours as needed for nausea/vomiting. - onabotulinum toxin type A (BOTOX) 200 unit injection Inject 200 Units intramuscularly every 12 weeks. - propranolol ER (INDERAL LA) 60 mg [...] as directed two times a week. - omeprazole (PRILOSEC) 20 mg capsule Take 1 capsule by mouth daily before breakfast. 1/2 hr before meal. - mometasone (ELOCON) 0.1 % cream Apply 1 application to affected area once daily. - SENNOSIDES 8.6 MG TAB as needed for constipation Problem List As Of Date 05/10/2025 Noted Resolved Headache [R51] 10/05/2007 11/07/2009 Postlaminectomy [...] 09/24/2022 Screen for colon cancer [Z12.11] 03/03/2025 Other instructions from your clinician: Botox Home Instruction: Instruction after botox injection: [...] not, call our office for further instructions. Prescriptions ordered this encounter Disp Refills Start End ONABOTULINUMTOXINA 200 UNIT SOLUTION* 05/10/2025 05/10/2025 Route: IM Disposition: Return in about 3 months (around 08/10/2025). Follow-up and Disposition History for Encounter Date Provider Department Center 05/10/2025 [id number] ROBYN HEATHER Patten [facility] Encounter Status:Closed by ROBYN HARRIS on 05/10/25 PROGRESS Observed: 05/10/2025 3:14 PM Status: COMPLETED Source: [facility] HNO ID: [id number] Author: ROBYN HARRIS PA-C Service: ? Author Type: Physician Manager Social Type: Progress Notes Filed: 05/10/2025 16:08 Note [...] for migraine Informed Consent Consent Obtained: Written [place] Protocol A moment to CARE was completed [...] collected. Written Consent Obtained: Written LOT #: [id number] Expiration Date: Month: 3 Year: 2027 Injection Sites Left (Units) Left (Sites) Right (Units) Right (Sites) TOTAL (Units) [employer] 5 1 5 1 10 Procerus Units: [...] better *< 31st percentile is at least ? SD worse than population, which may be clinically relevant < 16th percentile is at least 1 SD worse than population and warrants attention CNPN Observed: 04/19/2025 12:00 AM Status: COMPLETED Source: [facility] Telephone ([facility]) ANASTASIA SIMPSON ([id number]) 1975 F Date Time Provider Department 04/19/25 ROBYN HARRIS During your visit today, we recorded the following information about you: Darius Packer 04/19/2025 9:53 AM Signed Please be informed [...] to the patient to discuss any potential [id number] expenses. Your office should advise the patient [...] migrainosus Patient: ANASTASIA SIMPSON : 1975 DOS: [facility] Specialty Pharmacy Information Name of Specialty Pharmacy [facility] Phone Specialty Pharmacy Fax [...] Knott RN 04/20/2025 11:23 AM Addendum Called [facility] mailservice and they did receive the Rx but cannot process the prescription because the start date of the auth is the date of service which is 04/27/25. If processed on 04/27/25 however, the prescription will not be here on site that day to administer to the patient. Called Michael at [phone] and was able to get the prior authorization request modified to today's date. The new date if approved will be faxed to the office. To the [place] team: Please be on the lookout to receive this updated date fax because once received we should call the specialty pharmacy back to ensure they are processing it. Thank you Robyn Rivero RN 04/20/2025 11:47 AM Signed Received updated auth approval with today's start date from [facility]. Will send to scanning. Referral updated. Again called [facility] to check on processing the prescription. They said it's not in their system yet, and can take 24 to 48 hours. Once in the system, they process Rx and contact the patient. Insurance Account Manager said at this time there is no further action required from the office. Robyn Rivero RN 04/25/2025 8:14 AM Addendum Called [facility] Specialty pharmacy and spoke to four [...] RIVERO on: 04/24/2025 10:48 AM Modules accepted: Orders Robyn Rivero RN 04/25/2025 8:13 AM Signed Addended by: ROBYN RIVERO on: 04/25/2025 08:13 AM Modules accepted: Robyn Knott RN 04/25/2025 8:15 AM Signed Robyn, the order is pending to send to [facility]. When the order is confirmed with the pharmacy, do you think you could give this at the [place] location (it's a 200 unit vial)? We would have to confirm the delivery address when delivery is arranged. There might be more availability there, and it's where the patient lives. Robyn Harris PA-C 04/25/2025 9:38 AM Signed Addended by: ROBYN HARRIS on: 04/25/2025 09:38 AM Modules accepted: Orders Robyn Rivero RN 04/26/2025 2:14 PM Signed Scheduled May 10 in [place]. Continue follow up to ensure delivery from [facility] to [place]. Robyn Rivero RN 05/03/2025 10:[address] [facility] and confirmed the patient's appointment date of 05/10/2025 and delivery address as: [address] [address] Beckie Harvey MA 05/05/2025 10:20 AM Signed The Rx/ Order has been called in to [facility] [phone]. Gave them the [place] address listed. They will be contacting the patient for next steps and she will reschedule the appointment if necessary. Robyn Rivero RN 05/09/2025 11:[address] [facility] at requested phone number, spoke to Judith. Judith at [facility] said there is no authorization on file from the patient to ship the Botox. She put this RN on hold to call the patient for authorization. Judith did come back on the call and confirmed she has put in an overnight delivery for 10:30 AM tomorrow in [place]. Kimmy Tyson LPN 05/10/2025 10:28 AM Signed Botox delivery received for patient. Paperwork accompanying botox scanned to patient's chart. YAMILETH Godwin Melanie, PA-C 05/19/2025 8:14 AM Signed Addended by: ROBYN HARRIS on: 05/19/2025 08:14 AM Modules accepted: Orders Robyn Harris PA-C 06/02/2025 9:34 AM Signed Addended by: ROBYN HARRIS on: 06/02/2025 09:34 AM Modules accepted: Orders Allergies As of Date: 04/19/2025 Noted Allergy Reaction CELESTONE (BETAMETHASONE SODIUM P*12/19/2010 [...] LPN - Fully Assessed Reason for Visit: Insurance Authorization [[id number]] Cmt: Pharmacy Approval - [id number] Botox Order(s):onabotulinum toxin type A (BOTOX) 200 unit injectionInject 200 Units intramuscularly every 12 weeks.Disp: 1 eachRfl: 5 eletriptan (RELPAX) 20 mg tabletTake 1 tablet by mouth as needed. at the onset of migraine headache. No more than 2 in 24 hours and 10 in a month.Disp: 10 tabletRfl: 2 Prescriptions as of 06/02/2025 - eletriptan (RELPAX) 20 mg tablet Take 1 tablet by mouth as needed. at the onset of migraine headache. No more than 2 in 24 hours and 10 in a month. - HYDROcodone-acetaminophen (NORCO) 5-325 mg per tablet Take 1 tablet by mouth every 6 hours as needed for up to 30 days. - ondansetron orally disintegrating (ZOFRAN ODT) 4 mg disintegrating tablet Take 1 tablet by mouth every 6 hours as needed for nausea/vomiting. - onabotulinum toxin type A (BOTOX) 200 unit injection Inject 200 Units intramuscularly every 12 weeks. - propranolol ER (INDERAL LA) 60 mg 24 hr capsule Take 1 capsule by mouth once daily. - valACYclovir (VALTREX) 1 gram tablet Take 1 tablet by mouth two times a day. - progesterone micronized (PROMETRIUM) 100 mg capsule Take 100 mg by mouth once daily. - estradiol (MINIVELLE, VIVELLE-DOT) 0.0375 mg/24 hr patch Apply 1 patch as directed two times a week. - omeprazole (PRILOSEC) 20 mg capsule Take 1 capsule by mouth daily before breakfast. 1/2 hr before meal. - mometasone (ELOCON) 0.1 % cream Apply 1 application to affected area once daily. - SENNOSIDES 8.6 MG TAB as needed for constipation Problem List As Of Date 04/19/2025 Noted Resolved Headache [R51] 10/05/2007 11/07/2009 Postlaminectomy [...] 09/24/2022 Screen for colon cancer [Z12.11] 03/03/2025 Prescriptions ordered this encounter Disp Refills Start End BOTOX 100 UNIT INJECTION 2 ea* 4 04/19/2025 04/24/2025 Route: IM Sig: Inject 200 Units intramuscularly every 3 months. BOTOX 200 UNIT INJECTION 1 ea* 5 04/25/2025 Route: IM Sig: Inject 200 Units intramuscularly every 12 weeks. METHYLPREDNISOLONE 4 MG TABLETS IN A* 21 t* 0 05/19/2025 05/19/2025 Sig: Take as directed ELETRIPTAN 20 MG TABLET 10 t* 2 06/02/2025 Route: PO Sig: Take 1 tablet by mouth as needed. at the onset of migraine headache. No more than 2 in 24 hours and 10 in a month. Medications Discontinued During This Encounter Prescriptions - onabotulinum toxin type A (BOTOX) 100 unit solr (Discontinued) Inject 200 Units intramuscularly every 3 months. - SUMAtriptan (IMITREX) 100 mg tablet (Discontinued) Take 1 tablet by mouth once daily as needed for migraine headache (see administration instructions) (may repeat once in 24 hours.). Encounter Status:Closed by DARIUS PACKER on 04/19/25 SCARLETT Observed: 04/07/2025 12:00 AM Status: COMPLETED Source: [facility] Telephone ([employer]) ANASTASIA SIMPSON ([id number]) 1975 F Date Time Provider Department 04/07/25 [...] Authorization [Other] Prescriptions as of 04/11/2025 - HYDROcodone-acetaminophen (NORCO) 5-325 mg per tablet Take [...] Encounter Status:Closed by KIMMY TYSON on 04/10/25 PROGRESS Observed: 03/20/2025 8:05 PM Status: COMPLETED Source: [facility] HNO ID: [id number] Author: JACEK SCRUGGS MD Service: ? Author [...] treatments. Chronic Pain: - Pain managed with Holden; Anastasia reports effective control most days. - [...] OF Injections L4-L5 by Dr Knox in [place] Primary hypertension PAST SURGICAL HISTORY Procedure Laterality Date COLONOSCOPY FLX DX W/COLLJ SPEC WHEN PFRMD 02/28/2020 Colonoscopy-Dr Bryant ESOPHAGOGASTRODUODENOSCOPY TRANSORAL DIAGNOSTIC 02/28/2020 EGD-Dr Brynat LAPAROSCOPIC CHOLECYSTECTOMY 08/26/2018 Dr. Bryant MOHJanessa TRUNK/ARM/LEG [...] unspecified site (C44.91) - Follow-up appointment with funeral service manager scheduled for next week. 4. Postlaminectomy syndrome (M96.1) - Pain is managed with Holden; patient reports adequate control most days. - [...] to patient) Jacek Scruggs MD Recording using [employer] software for draft documentation of the visit was discussed with the patient/authorized school admissions representative; all questions welcomed and answered. Patient/authorized school admissions representative agreed to proceed CNOV Observed: 03/20/2025 5:00 PM Status: COMPLETED Source: [facility] Office Visit (FAMPWS) ANASTASIA SIMPSON ([id number]) 1975 F Date Time Provider Department 03/20/25 5:00 PM JACEK SCRUGGSWS During your visit today, we recorded the following information about you: Pulse Blood pressure 88/minute 102/62 Jacek Scruggs MD 03/20/2025 5:26 PM Signed - Sign your new opioid (controlled substance) agreement today so you can continue Holden for pain control. - Continue taking Holden exactly as prescribed; do not increase your dose or share it with others. - Attend your dermatology appointment in one week for your routine skin check. - Keep using your current heartburn medication, which has been helping; you may continue avoiding spicy foods as needed. - If your double vision returns, contact our office right away so we can arrange an eyeglass lens cutter evaluation and any necessary imaging. - Plan to return to this clinic in about two months to review your pain management, migraine treatment, and overall progress. Jacek Scruggs MD 03/20/2025 8:06 PM Signed Anastasia Simpson is a 49-year-old female with [...] treatments. Chronic Pain: - Pain managed with Holden; Anastasia reports effective control most days. - [...] OF Injections L4-L5 by Dr Knox in [place] Primary hypertension PAST SURGICAL HISTORY Procedure Laterality [...] unspecified site (C44.91) - Follow-up appointment with funeral service manager scheduled for next week. 4. Postlaminectomy syndrome (M96.1) - Pain is managed with Holden; patient reports adequate control most days. - [...] to patient) Jacek Scruggs MD Recording using [employer] software for draft documentation of the visit was discussed with the patient/authorized school admissions representative; all questions welcomed and answered. Patient/authorized school admissions representative agreed to proceed Allergies As of Date: 03/20/2025 Noted Allergy Reaction CELESTONE (BETAMETHASONE SODIUM P*12/19/2010 [...] UNKNOWN Date Reviewed: 03/20/2025 Reviewed by: Danitza Menedz LPN - Fully Assessed Reason for Visit: Follow Up [171] Primary Visit Diagnosis:Other migraine without status migrainosus, not intractable [G43.809] Other Visit Diagnoses:Primary hypertension [I10] Basal cell carcinoma (BCC), unspecified site [C44.91] Postlaminectomy syndrome [M96.1] Gastro-esophageal reflux disease without esophagitis [K21.9] Prescriptions as of 03/20/2025 - HYDROcodone-acetaminophen (NORCO) 5-325 mg per tablet Take [...] for constipation Problem List As Of Date 03/20/2025 Noted Resolved Headache [R51] 10/05/2007 11/07/2009 Postlaminectomy [...] 09/24/2022 Screen for colon cancer [Z12.11] 03/03/2025 Other instructions from your clinician: - Sign your new opioid (controlled substance) agreement today so you can continue Holden for pain control. - Continue taking Holden exactly as prescribed; do not increase your dose or share it with others. - Attend your dermatology appointment in one week for your routine skin check. - Keep using your current heartburn medication, which has been helping; you may continue avoiding spicy foods as needed. - If your double vision returns, contact our office right away so we can arrange an eyeglass lens cutter evaluation and any necessary imaging. - Plan to return to this clinic in about two months to review your pain management, migraine treatment, and overall progress. Disposition: Return in about 2 months (around 05/20/2025). Follow-up and Disposition History for Encounter Date Provider Department Center 03/20/2025 [id number] SCRUGGS [facility] Encounter Status:Closed by JACEK SCRUGGS on 03/20/25 SCARLETT Observed: 03/17/2025 12:00 AM Status: COMPLETED Source: [facility] Telephone ([facility]) ANASTASIA SIMPSON ([id number]) 1975 F Date Time Provider Department 03/17/25 ROBYN HARRIS [facility] During your visit today, we [...] Authorization [[id number]] Prescriptions as of 03/17/2025 - HYDROcodone-acetaminophen (NORCO) 5-325 mg per tablet Take [...] Encounter Status:Closed by JAYLEN TUBBS on 03/17/25 ANES POSTPROC EVAL Observed: 03/03/2025 3:08 PM Status: COMPLETED Source: [facility] HNO ID: [id number] Author: STEPHANIE TELLO MD Service: Anesthesiology Author Type: Anesthesiologist Type: Anesthesia Postprocedure Evaluation Filed: 03/03/2025 15:10 Note Text: POST ANESTHESIA EVALUATION NOTE : 1975 Procedure Summary Date: 03/03/25 Room / Location: [facility] Endoscopy Anesthesia Start: 720 Anesthesia Stop: 742 Procedure: COLONOSCOPY SCREENING Diagnosis: History of colonic polyps Screen for colon cancer (High risk colon cancer surveillance: Personal History of adenomatous polyps) Scheduled Providers: Sage Bryant MD; Stephanie Tello MD; Gypsy Agrawal APRN.AIRPORT MAINTENANCE LABORER Responsible Provider: Stephanie Tello MD Anesthesia Type: [...] March 03, 2025 TIME: 3:08 PM CSN: [id number] ED NOTE Observed: 03/03/2025 11:11 AM Status: COMPLETED Source: [facility] HNO ID: [id number] Author: MEY MESSER RN Service: ? Author Type: Registered Nurse Type: ED Notes Filed: 03/03/2025 11:11 Note Text: Discharge instructions reviewed with patient via teachback. Pt verbalizes understanding. Pt awake and alert, respirations regular and unlabored. No further questions for this RN. COMP METAB 2000 PNL SERPL Collected: 9:56 AM Status: F Source: [facility] Order Comment: Specimen Type : BLOOD SPECIMEN Ordering Facility: [facility] Address: [place] [address] TYPE CODE TESTS RESULT OUT OF RANGE REFERENCE UNITS LAB 2885-2(LOINC) Prot SerPl-mCnc 6.3 6.3-8.0 g/dL LAB 1751-7(LOINC) Albumin SerPl-mCnc 3.8 Low 3.9-4.9 g/dL LAB 82802-4(LOINC) Calcium SerPl-mCnc 8.4 Low 8.5-10.2 mg/dL LAB 1975-2(LOINC) Bilirub SerPl-mCnc 0.3 0.2-1.3 mg/dL LAB 6768-6(LOINC) ALP SerPl-cCnc 59 34-123 U/L LAB 1920-8(LOINC) AST SerPl-cCnc 19 13-35 U/L LAB 1742-6(LOINC) ALT SerPl-cCnc 13 7-38 U/L LAB 2345-7(LOINC) Glucose SerPl-mCnc 88 74-99 mg/dL Result Comment: The [place] [employer] (ADA) provides guidance for cutoff [...] Standards of Medical Care in Diabetes 2016, [place] [employer]. Diabetes Care. 2016.39(Suppl 1). LAB 3094-0(LOINC) BUN SerPl-mCnc 13 7-21 mg/ dL LAB 2160-0(LOINC) Creat SerPl-mCnc 0.56 Low 0.58-0.96 mg/dL LAB 2951-2(LOINC) Sodium SerPl-sCnc 140 136-144 mmol/L LAB 2823-3(LOINC) Potassium SerPl-sCnc 3.7 3.7-5.1 mmol/L LAB 2075-0(LOINC) Chloride SerPl-sCnc 107 98-107 mmol/L LAB 2027-9(LOINC) CO2 SerPl-sCnc 24 22-30 mmo l/L LAB 39843-9(LOINC) Anion Gap SerPl-sCnc 9 8-15 mmol/L LAB 26871-6(LOINC) Creatinine + eGFR Pnl SerPlBld 112 >=60 mL/min/1. 73m??? Result Comment: Estimated Gl omerular Filtration Rate (eGFR) is calculated using the 2020 CKD-EPI creatinine equation. This equation utilizes serum creatinine, sex, and age as parameters. The creatinine assay has traceable calibration to isotope dilution-mass spectrometry. Refer to KDIGO guidelines for clinical interpretation. In patients with unstable renal function, e.g. those with acute kidney injury, the eGFR may not accurately reflect actual GFR. Performed By: #### 59370-5, 3040-3, #### [facility] CLIA [id number] [address] STATES [facility] LIPASE SERPL-CCNC Collected: 03/03/2025 9:56 AM Stat us: F Source: [facility] Order Comment: Specimen Type : BLOOD SPECIMEN Ordering Facility: [facility] Address: [address] [place] [address] TYPE CODE TESTS RESULT OUT OF RANGE REFERENCE UNITS LAB 3040-3([facility]) Lipase SerPl-cCnc 37 16-61 U/L Performed By: #### 86256-2, 3040-3, 75821-3 #### [facility] CLIA [id number] [address] [place] OF [place] MAGNESIUM SERPL-MCNC Collected: 03/03/2025 9:56 AM S tatus: F Source: [facility] Order Comment: Specimen Type : BLOOD SPECIMEN Ordering Facility: [facility] Address: [address] [place] [address] TYPE CODE TESTS RESULT OUT OF RANGE REFERENCE UNITS LAB 39071-7([facility]) Magnesium SerPl-mCnc 2.0 1.7-2.3 mg/dL Performed By: #### 69681-5, 3040-3, 51817-9 #### [facility] CLIA [id number] [address] [place] [address] [place] OF [facility] CBC W AUTO DIFF BLD Collected: 03/03/2025 9:[address] atus: F Source: [facility] Order Comment: Specimen Type : BLOOD SPECIMEN Ordering Facility: [facility] Address: [address] [place] [address] TYPE CODE TESTS RESULT OUT OF RANGE REFERENCE UNITS LAB 6690-2([facility]) WBC # Bld Auto 9.99 3.70-11.00 k/uL LAB 789-8([facility]) RBC # Bld Auto 4.36 3.90-5.20 m/ uL LAB 718-7([facility]) Hgb Bld-mCnc 12.9 11.5-15.5 g/dL LAB 4544-3([facility]) Hct VFr Bld Auto 39.3 36.0-46.0 % LAB 787-2([facility]) MCV RBC Auto 90.1 80.0-100.0 fL LAB 785-6([facility]) MCH RBC Qn Auto 29.6 26.0-34.0 p g LAB 786-4([facility]) MCHC RBC Auto-mCnc 32.8 30.5-36.0 g/dL LAB 17152-1([facility]) RDW RBC-Rto 12.4 11.5-15.0 % LAB 777-3([facility]) Platelet # Bld Auto 224 150-400 k/uL LAB 99773-0([facility]) PMV Bld Auto 10.4 9.0-12.7 fL LAB 770-8(INC) Neutrophils/leuk NFr Bld Auto 71.6 % LAB 751-8(LOINC) Neutrophils # Bld Auto 7.15 1.45-7.50 k/uL LAB 736-9(INC) Lymphocytes/leuk NFr Bld Auto 19.7 % LAB 731-0(INC) Lymphocytes # Bld Auto 1.97 1.00-4.00 k/uL LAB 5905-5(INC) Monocytes/leuk NFr Bld Auto 6.8 % LAB 742-7(LOINC) Monocytes # Bld Auto 0.68 <0.87 k/uL LAB 713-8(LOINC) Eosinophil/leuk NFr Bld Auto 0.6 % LAB 711-2(LOINC) Eosinophil # Bld Auto 0.06 <0.46 k/uL LAB 706-2(LOINC) Basophils/leuk NFr Bld Auto 0.9 % LAB 704-7(LOINC) Basophils # Bld Auto 0.09 <0.11 k/uL LAB 51637-6(LOINC) Imm Granulocytes/aileen k NFr Bld Auto 0.4 % LAB 55638-9(LOINC) Imm Granulocytes # Bld Auto 0.04 <0.10 k/uL LAB 99045-6(LOINC) nRBC/100 WBC Bld-Rto 0.0 /100 WBC LAB 771-6(LOINC) nRBC # Bld Auto <0.01 <0.01 k/u L LAB 32339-3(LOINC) Differential method Bld Auto Performed By: #### 38826-5 # ### [facility] CLIA [id number] [address] [place] [address] [facility] ED PROV NOTE Observed: 03/03/2025 9:47 AM Status: COMPLETED Source: [facility] HNO ID: [id number] Author: ADRIAN REECE DO Service: Emergency Medicine Author Type: Physician Type: ED Provider Notes Filed: 03/03/2025 14:34 Note Text: ED Provider Note Patient Name: Anastasia Simpson : 1975 SERVICE DATE: 03/03/25 History Patient presents with: Visual Changes: Pt presents to ED from PACU with c/o blurry/double vision following colonoscopy. OPERATOR [employer] LOCATING RADAR states pt tolerated procedure well, was able [...] OF Injections L4-L5 by Dr Knox in [place] Primary hypertension PAST SURGICAL HISTORY Procedure Laterality [...] rash and wound. Neurological: Negative for headaches. Psychiatric/Behavioral: Negative for confusion. Physical Exam Vitals [03/03/25 [...] Pulmonary: Effort: Pulmonary effort is normal. No respiratory distress. Breath sounds: Normal breath sounds. No wheezing or rales. Chest: Chest wall: No tenderness. Abdominal: General: Bowel sounds are normal. There is no distension. Palpations: Abdomen is soft. There is no mass. Tenderness: There is no abdominal tenderness. There is no guarding or rebound. Musculoskeletal: General: No tenderness or deformity. Normal range of motion. Cervical back: Normal range of motion and neck supple. Lymphadenopathy: Cervical: No cervical adenopathy. Skin: General: Skin is warm and dry. Coloration: Skin is not pale. Findings: No erythema or rash. Neurological: Mental Status: She is alert and oriented to person, place, and time. GCS: GCS eye subscore is 4. GCS verbal subscore is 5. GCS motor subscore is 6. Cranial Nerves: Cranial nerves 2-12 are intact. Sensory: Sensation is intact. Motor: Motor function is intact. Coordination: Coordination is intact. Diagnostic Testing ED Labs Ordered and Reviewed - No data to display Procedures ED Course / Clinical Impression Clinical Impressions as of 03/03/25 1432 Diplopia Complication of anesthesia, initial encounter MDM / Disposition / Plan Anastasia Simpson is a 49-year-old female who is presenting to the emergency department with vision issues after anesthesia. On arrival here her symptoms had seemed to resolve. Denies ongoing symptoms throughout her stay. Denies any other focal neurologic deficits. Electrolytes here are within normal limits. She was given some IV fluids and observed for about 2 hours. She only improved and now feels back to baseline. I feel that this may have been simply a complication of the anesthetics. She was encouraged to return to the emergency department if this recurs however feels comfortable with the following up with PCP otherwise. She was given return precautions and discharged. Differential Diagnoses - Anesthesia complication - CVA is less likely for the following reason(s): HANDP not suggestive - Electrolyte imbalance is less likely for the following reason(s): HANDP not suggestive - Anemia is less likely for the following reason(s): laboratory studies not suggestive Management Meds Given During Visit ED Medication Administration from 03/03/2025 0913 to 03/03/2025 1112 Date/Time Order Dose Route Action 03/03/2025 0957 EDT NaCl 0.9% 1,000 mL iv bolus 1,000 mL INTRAVENOUS New Bag/Syringe/Bottle 03/03/2025 1057 EDT NaCl 0.9% 1,000 mL iv bolus 0 mL INTRAVENOUS Infusion Complete Disposition The patient was discharged. See MDM narrative Counseled patient regarding suspected diagnosis, radiology results and lab results. SIGNATURE: DO Benigno Beckham MICHAEL I 03/03/25 1434 ED NOTE Observed: 03/03/2025 9:13 AM Status: COMPLETED Source: [facility] HNO ID: [id number] Author: DREW DUMONT RN Service: ? Author Type: Registered Nurse Type: ED Notes Filed: 03/03/2025 09:13 Note Text: Bed: ED-11 Expected date: 03/03/25 Expected time: Means of arrival: Comments: PACU NURSING PROG Observed: 03/03/2025 8:00 AM Status: COMPLETED Source: [facility] HNO ID: [id number] Author: JULIANE LIGHT RN Service: Nursing Author Type: Registered Nurse [...] Patient agrees to go to the ER. 899 Report called to to Deniz ANDERS in the ER. HISTORY PHYSICAL Observed: 03/03/2025 7:30 AM Status: COMPLETED Source: [facility] HNO ID: [id number] Author: SAGE BRYANT MD Service: General Surgery Author Type: Physician Type: H&P Filed: 03/03/2025 06:51 Note Text: HISTORY AND PHYSICAL Anastasia Simpson : 1975 REFERRING PHYSICIAN: Jacek Scruggs [address] [facility] [address] CHIEF COMPLAINT: Patient presents with: Consult: Hx [...] colonoscopy was 02/[address] Bryant at [facility]. Sedation:[facility] EGD Impressions : - Normal esophagus. - [...] OF Injections L4-L5 by Dr Knox in [place] Primary hypertension PAST SURGICAL HISTORY PAST SURGICAL [...] Blood pressure 124/87, pulse 88, temperature 36.6 ?C (97.8 ?F), resp. rate 16, height 167.6 cm (5' 6), weight 66.7 kg (147 lb), last menstrual period 07/30/2024, SpO2 97%. Body mass index is 23.73 kg/m?. HEENT: Normal cephalic, ataumatic, pupils are equally [...] edited and updated as necessary. Quin Mendez APRN.CNP UPDATED HISTORY AND PHYSICAL EXAMINATION SERVICE DATE: 03/03/2025 SERVICE TIME: 6:51 AM PHYSICAL EXAM MUST BE COMPLETED ON ADMISSION The History and Physical (completed in the past 30 days) has been reviewed and the patient has been examined. The contents accurately reflect the patient's condition with the following additions or revisions since the HANDP was completed. Examination indicates no changes. This HANDP can be found in the attached. SIGNATURE: Sage Bryant III, MD PATIENT NAME: Anastasia Simpson DATE: March 03, 2025 TIME: 6:51 AM COLONOSCOPY Observed: 03/03/2025 7:09 AM Status: F Source: [facility] Gastrointestinal Endoscopy Patient Name: Anastasia Simpson Procedure Date: 03/03/2025 7:09 AM Date of : 1975 Admit Type: Outpatient Age: 49 Room: [facility] Gender: Female Note Status: Finalized Attending MD: Sage Bryant MD, [id number] Procedure: Colonoscopy Indications: High risk colon cancer [...] physician PRN. Procedure Code(s): --- Professional --- 84792, Colonoscopy, flexible; diagnostic, including collection of specimen(s) by brushing or washing, when performed (separate procedure) Diagnosis Code(s): --- Professional --- Z12.11, Encounter for screening for malignant neoplasm of colon Z86.0101, Personal history of adenomatous and serrated colon polyps K64.8, Other hemorrhoids CPT copyright 2020 [employer]. All rights reserved. The codes documented in this report are preliminary and upon senior java software engineer review may be revised to meet current compliance requirements. Attending Participation: I personally performed the entire procedure. Scope In: 7:28:38 AM Scope Out: 7:40:32 AM MD Sage Jaquez MD 03/03/2025 7:44:18 AM This report has been signed electronically by Sage Bryant MD Number of Addenda: 0 Note Initiated On: 03/03/2025 7:09 AM Estimated Blood Loss: Estimated blood loss: none. ANES PRE-OP Observed: 03/03/2025 6:44 AM Status: COMPLETED Source: [facility] HNO ID: [id number] Author: STEPHANIE TELLO MD Service: Anesthesiology Author Type: Anesthesiologist Type: Anesthesia Preprocedure Evaluation Filed: 03/03/2025 06:44 Note Text: ANESTHESIOLOGY DAY OF SURGERY NOTE : 1975 Procedure Information Date/Time: 03/03/25729 Scheduled providers: Sage Bryant MD; Stephanie Tello MD; Gypsy Agrawal APRN.AIRPORT MAINTENANCE LABORER Procedure: COLONOSCOPY SCREENING Location: [facility]oscopy Estimated body mass index is [...] and consent discussed: yes. Patient / Responsible Democrat agrees to proceed: yes Patient / Surrogate [...] none. Vitals Value Taken Time BP 125/88 03/03/25629 Pulse 84 03/03/25629 Resp Temp 36.4 ?C (97.5 ?F) 03/03/25629 SpO2 100 % 03/03/25629 Outpatient Medications as [...] tablet by mouth two times a day. HYDROcodone-acetaminophen (NORCO) 5-325 mg per tablet Take [...] March 03, 2025 TIME: 6:44 AM CSN: [id number] CNPN Observed: 02/15/2025 12:00 AM Status: COMPLETED Source: [facility] Telephone (FAMPWS) ANASTASIA SIMPSON ([id number]) 1975 F Date Time Provider Department 02/15/25 JACEK SCRUGGS During your visit today, we recorded the following information about you: Conchis Serrano LPN 02/15/2025 12:38 PM Signed [facility] calling asking for directions to be clarified on the Sumatriptan rx. One tablet every so many hours and max amount for daily use please. Please advise Nati Raya RN 02/16/2025 12:31 PM Signed Patient calls to check on status of request for sumatriptan. She is completely out of medication and experiencing a migraine. Asking if provider in office today could respond to pharmacy request. [facility] needs to know how many hours and max dose for daily use. Order says once daily so every 24 hours and max dose daily 1? Please call verbal to [facility]. Please review and advise, MARTITA Ortega Jacqueline A, APRN.REAL ESTATE TRANSACTION MANAGER 02/16/2025 1:54 PM Signed Done- called to [...] Date Reviewed: 01/23/2025 Reviewed by: Quin Mendez APRN.REAL ESTATE TRANSACTION MANAGER - Fully Assessed Reason for Visit: Medication [...] (may repeat once in 24 hours.). - HYDROcodone-acetaminophen (NORCO) 5-325 mg per tablet Take [...] Encounter Status:Closed by JACEK SCRUGGS on 02/15/25 PROGRESS Observed: 01/25/2025 4:42 PM Status: COMPLETED Source: [facility] ID: [id number] Author: MALOU BAEZ PA-C Service: ? Author Type: Physician Manager Social Type: Progress Notes Filed: 01/25/2025 17:34 Note Text: Jon 2Robyn patient Follow-Up Onabotulinum Toxin A [...] for migraine Informed Consent Consent Obtained: Written [place] Protocol A moment to CARE was completed [...] collected. Written Consent Obtained: Written LOT #: [id number] Expiration Date: Month: Year: 2026 Second vial: LOT #: [id number] Expiration Date: Month: Year: 2026 Injection Sites Left (Units) Left (Sites) Right (Units) Right (Sites) TOTAL (Units) Old Coin Dealer 5 1 5 1 10 Procerus Units: 5 Sites: 1 5 Frontalis 10 2 10 2 20 Temporalis 20 4 20 4 40 Occipitalis 15 3 15 3 30 Cervical PSP 10 2 10 2 20 Trapezius 15 3 15 3 30 Total Units used: 155 Total Units wasted: 45 Prior Therapies Duration of Use Dose Side effect Malou Baez PA-C CNOV Observed: 01/25/2025 4:25 PM Status: COMPLETED Source: [facility] Office Visit ([place]) ANASTASIA SIMPSON ([id number]) 1975 F Date Time Provider Department 01/25/25 4:25 PM MALOU BAEZ During your visit today, we recorded the [...] for migraine Informed Consent Consent Obtained: Written [place] Protocol A moment to CARE was completed [...] collected. Written Consent Obtained: Written LOT #: [id number] Expiration Date: Month: Year: 2026 Second vial: LOT #: [id number] Expiration Date: Month: Year: 2026 Injection Sites Left (Units) Left (Sites) Right (Units) Right (Sites) TOTAL (Units) Old Coin Dealer 5 1 5 1 10 Procerus Units: [...] Malou Baez PA-C Referring Provider: ROBYN HARRIS [[id number]] Allergies As of Date: 01/25/2025 Noted Allergy [...] Date Reviewed: 01/23/2025 Reviewed by: Quin Mendez APRN.REAL ESTATE TRANSACTION MANAGER - Fully Assessed Reason for Visit: Headache [52] Cmt: botox treatment #2 Primary Visit Diagnosis:Intractable chronic migraine with aura and without status migrainosus [G43.E19] Order(s):[] onabotulinum toxin type A 155 Units injection (BOTOX)Disp: Rfl: Prescriptions as of 01/25/2025 - progesterone micronized (PROMETRIUM) 100 mg capsule Take 100 mg by mouth once daily. - estradiol (MINIVELLE, VIVELLE-DOT) 0.0375 mg/24 hr patch Apply 1 patch as directed two times a week. - ondansetron orally disintegrating (ZOFRAN ODT) 4 mg disintegrating tablet Take 1 tablet by mouth every 6 hours as needed for nausea/vomiting. - HYDROcodone-acetaminophen (NORCO) 5-325 mg per tablet Take 1 tablet by mouth every 6 hours as needed for up to 30 days. - SUMAtriptan (IMITREX) 100 mg tablet Take 1 tablet by mouth as needed. - omeprazole (PRILOSEC) 20 mg capsule Take 1 capsule by mouth daily before breakfast. 1/2 hr before meal. - mometasone (ELOCON) 0.1 % cream Apply 1 application to affected area once daily. - famotidine (PEPCID) 20 mg tablet Take 1 tablet by mouth at bedtime as needed. - valACYclovir (VALTREX) 1 gram tablet Take 1 tablet by mouth two times a day. - propranolol ER (INDERAL LA) 60 mg 24 hr capsule Take 1 capsule by mouth once daily. - SENNOSIDES 8.6 MG TAB as needed for constipation Problem List As Of Date 01/25/2025 Noted Resolved Headache [R51] 10/05/2007 11/07/2009 Postlaminectomy [...] ordered this encounter Disp Refills Start End ONABOTULINUMTOXINA 100 UNIT SOLUTION* 01/25/2025 01/25/2025 Route: INTRAMUSCULA Encounter Status:Closed by MALOU BAEZ on 01/25/25 PROGRESS Observed: 01/23/2025 11:30 AM Status: COMPLETED Source: [facility] HNO ID: [id number] Author: QUIN MENDEZ APRN.REAL ESTATE TRANSACTION MANAGER Service: ? Author Type: Nurse Practitioner Type: Progress Notes Filed: 01/23/2025 11:52 Note Text: HISTORY AND PHYSICAL Anastasia Simpson : 1975 REFERRING PHYSICIAN: Jacek Scruggs [address] [facility] [address] CHIEF COMPLAINT: Patient presents with: Consult: Hx [...] colonoscopy was 02/[address] Bryant at [facility]. Sedation:MAC EGD Impressions : - Normal [...] OF Injections L4-L5 by Dr Knox in [place] Primary hypertension PAST SURGICAL HISTORY Procedure Laterality [...] Blood pressure 124/87, pulse 88, temperature 36.6 ?C (97.8 ?F), resp. rate 16, height 167.6 cm (5' 6), weight 66.7 kg (147 lb), last menstrual period 07/30/2024, SpO2 97%. Body mass index is 23.73 kg/m?. HEENT: Normal cephalic, ataumatic, pupils are equally [...] edited and updated as necessary. Quin Mendez APRN.CNP CNOV Observed: 01/23/2025 11:30 AM Status: COMPLETED Source: [facility] Office Visit ([facility]) CALVINJUSTYNANASTASIA Gay ([id number]) 1975 F Date Time Provider Department 01/23/25 11:30 AM QUIN MENDEZ During your visit today, we recorded the following information about you: Temperature Pulse Respiration Blood pressure 97.8 degrees 88/minute 16/minute 124/87 Weight Height 66.7 kg 1.676 m Quin Mendez APRN.CNP 01/23/2025 11:52 AM Signed HISTORY AND PHYSICAL Anastasia Simpson : 1975 REFERRING PHYSICIAN: Jacek Dupont0 [facility] [address] CHIEF COMPLAINT: Patient presents with: Consult: Hx [...] colonoscopy was 02/[address] Bryant at [facility]. Sedation:MAC EGD Impressions : - Normal [...] OF Injections L4-L5 by Dr Knox in [place] Primary hypertension PAST SURGICAL HISTORY Procedure Laterality [...] Blood pressure 124/87, pulse 88, temperature 36.6 ?C (97.8 ?F), resp. rate 16, height 167.6 cm (5' 6), weight 66.7 kg (147 lb), last menstrual period 07/30/2024, SpO2 97%. Body mass index is 23.73 kg/m?. HEENT: Normal cephalic, ataumatic, pupils are equally [...] and updated as necessary. Quin Mendez APRN.BOONE Referring Provider: JACEK SCRUGGS [[id number]] Allergies As of Date: 01/23/2025 Noted Allergy Reaction CELESTONE (BETAMETHASONE SODIUM P*12/19/2010 [...] Date Reviewed: 01/23/2025 Reviewed by: Quin Mendez APRN.REAL ESTATE TRANSACTION MANAGER - Fully Assessed Reason for Visit: Consult [173] Cmt: Hx of colonic polyps Primary Visit Diagnosis:Screen for colon cancer [Z12.11] Other Visit Diagnosis:History of colonic polyps [Z86.0100] Order(s):CONSULT TO GENERAL SURGERY [9011] Order #: [id number]: 1 peg 3350-Electrolytes (GOLYTELY) 236-22.74-6.74 -5.86 gram suspensionTake 4,000 mL by mouth one time only for 1 dose. Refer to printed prep instructions from your provider.Disp: 4000 mLRfl: 0 COLONOSCOPY SCREENING [GI51] Order #: [id number] FUTURE Prescriptions as of 01/23/2025 - peg 3350-Electrolytes (GOLYTELY) 236-22.74-6.74 -5.86 gram suspension Take 4,000 mL by mouth one time only for 1 dose. Refer to printed prep instructions from your provider. - progesterone micronized (PROMETRIUM) 100 mg capsule Take 100 mg by mouth once daily. - estradiol (MINIVELLE, VIVELLE-DOT) 0.0375 mg/24 hr patch Apply 1 patch as directed two times a week. - ondansetron orally disintegrating (ZOFRAN ODT) 4 mg disintegrating tablet Take 1 tablet by mouth every 6 hours as needed for nausea/vomiting. - HYDROcodone-acetaminophen (NORCO) 5-325 mg per tablet Take 1 tablet by mouth every 6 hours as needed for up to 30 days. - SUMAtriptan (IMITREX) 100 mg tablet Take 1 tablet by mouth as needed. - omeprazole (PRILOSEC) 20 mg capsule Take 1 capsule by mouth daily before breakfast. 1/2 hr before meal. - mometasone (ELOCON) 0.1 % cream Apply 1 application to affected area once daily. - famotidine (PEPCID) 20 mg tablet Take 1 tablet by mouth at bedtime as needed. - valACYclovir (VALTREX) 1 gram tablet Take 1 tablet by mouth two times a day. - propranolol ER (INDERAL LA) 60 mg 24 hr capsule Take 1 capsule by mouth once daily. - SENNOSIDES 8.6 MG TAB as needed for constipation Problem List As Of Date 01/23/2025 Noted Resolved Headache [R51] 10/05/2007 11/07/2009 Postlaminectomy [...] ordered this encounter Disp Refills Start End PEG 3350-ELECTROLYTES 236 GRAM-22.74* 4000* 0 01/23/2025 01/23/2025 Route: ORAL Sig: Take 4,000 mL by mouth one time only for 1 dose. Refer to printed prep instructions from your provider. Encounter Status:Closed by QUIN MENDEZ on 01/23/25 PROGRESS Observed: 01/16/2025 6:53 PM Status: COMPLETED [facility] [id number] Author: JACEK SCRUGGS MD Service: ? Author Type: Physician Type: Progress Notes Filed: 01/16/2025 19:15 Note Text: Patient presents with: Follow Up HPI: Patient presents today for office visit for follow up. Overall doing well. Work is doing well. Emotionally is doing well. Wants to wean off lexapro. Started on estrogen and progesterone. Seeing inventory checker. Continues to use pain meds. Has done [...] OF Injections L4-L5 by Dr Knox in [place] PAST SURGICAL HISTORY Procedure Laterality Date COLONOSCOPY [...] LMP 07/30/2024 (Approximate) SpO2 100% BMI 22.76 kg/m? Last 4 Encounter Wt [...] meds after a week. Jacek Scruggs MD CNOV Observed: 01/16/2025 6:40 PM Status: COMPLETED Source: [facility] ANASTASIA SIMPSON ([id number]) 1975 F Date Time Provider Department 01/16/25 6:40 PM [facility] During your visit today, we recorded [...] lexapro. Started on estrogen and progesterone. Seeing inventory checker. Continues to use pain meds. Has done [...] OF Injections L4-L5 by Dr Knox in [place] PAST SURGICAL HISTORY Procedure Laterality Date COLONOSCOPY [...] LMP 07/30/2024 (Approximate) SpO2 100% BMI 22.76 kg/m? Last 4 Encounter Wt [...] meds after a week. Jacek Scruggs MD Allergies As of Date: 01/16/2025 Noted Allergy Reaction CELESTONE (BETAMETHASONE SODIUM P*12/19/2010 [...] (SULFONAMIDE ANTIBIOTICS) 07/01/2004 Comments: UNKNOWN Date Reviewed: 11/14/2024 Reviewed by: Danitza Mendez LPN - Fully Assessed Reason for Visit: Follow Up [171] Primary Visit Diagnosis:Primary hypertension [I10] Other Visit Diagnoses:History of colonic polyps [Z86.0100] Other migraine without status migrainosus, not intractable [G43.809] Basal cell carcinoma (BCC), unspecified site [C44.91] Anxiety [F41.9] Adjustment disorder with anxious mood [F43.22] Order(s):CONSULT TO GENERAL SURGERY [9013] Order #: [id number]: 1 FUTURE Prescriptions as of 01/16/2025 - progesterone micronized (PROMETRIUM) 100 mg capsule Take 100 mg by mouth once daily. - estradiol (MINIVELLE, VIVELLE-DOT) 0.0375 mg/24 hr patch Apply 1 patch as directed two times a week. - ondansetron orally disintegrating (ZOFRAN ODT) 4 mg disintegrating tablet Take 1 tablet by mouth every 6 hours as needed for nausea/vomiting. - HYDROcodone-acetaminophen (NORCO) 5-325 mg per tablet Take 1 tablet by mouth every 6 hours as needed for up to 30 days. - SUMAtriptan (IMITREX) 100 mg tablet Take 1 tablet by mouth as needed. - omeprazole (PRILOSEC) 20 mg capsule Take 1 capsule by mouth daily before breakfast. 1/2 hr before meal. - mometasone (ELOCON) 0.1 % cream Apply 1 application to affected area once daily. - famotidine (PEPCID) 20 mg tablet Take 1 tablet by mouth at bedtime as needed. - valACYclovir (VALTREX) 1 gram tablet Take 1 tablet by mouth two times a day. - propranolol ER (INDERAL LA) 60 mg 24 hr capsule Take 1 capsule by mouth once daily. - SENNOSIDES 8.6 MG TAB as needed for constipation Problem List As Of Date 01/16/2025 Noted Resolved Headache [R51] 10/05/2007 11/07/2009 Postlaminectomy [...] back pain [M54.6] 08/24/2023 Hypertension [I10] 09/24/2022 Medications Discontinued During This Encounter Prescriptions - escitalopram oxalate (LEXAPRO) 5 mg tablet (Discontinued) Take 1 tablet by mouth once daily. Take 1 tab a day for one week and then increase to 2 tabs a day Disposition: Return in about 2 months (around 03/18/2025). Follow-up and Disposition History for Encounter Date Provider Department Center 01/16/2025 [id number] SCRUGGSWS [facility] Encounter Status:Closed by JACEK SCRUGGS on 01/16/25 PROGRESS Observed: 12/15/2024 12:20 PM Status: COMPLETED Source: [facility]NO ID: [id number] Author: KIMMY TYSON LPN Service: ? Author Type: LICENSED NURSE Type: Progress Notes Filed: 12/15/2024 13:08 Note Text: Tordol 30mg/ml administered IM to right buttock as ordered and patient tolerated well and denied questions or concerns at this time. Kimmy Tyson LPN PROGRESS Observed: 12/15/2024 11:53 AM Status: COMPLETED Source: [facility] ID: [id number] Author: COBY SOTELO APRN.REAL ESTATE TRANSACTION MANAGER Service: ? Author Type: Nurse Practitioner Type: [...] OF Injections L4-L5 by Dr Knox in [place] PAST SURGICAL HISTORY Procedure Laterality Date COLONOSCOPY [...] time. Comments: Cranial nerves III-XII intact, no xjbbyq-ca-vpnd ataxia Psychiatric: Comments: Bright affect, neatly dressed, [...] needed for worsening/no improvement. Coby Sotelo APRN.CNP CNOV Observed: 12/15/2024 11:40 AM Status: COMPLETED Source: [facility] ANASTASIA SIMPSON ([id number]) 1975 F Date Time Provider Department 12/15/24 11:40 AM [facility] During your visit today, we recorded the following information about you: Pulse Respiration Blood pressure Weight 77/minute 16/minute 124/70 65.4 kg Coby Sotelo APRN.CNP 12/15/2024 1:08 PM Signed This is a [...] OF Injections L4-L5 by Dr Knox in [place] PAST SURGICAL HISTORY Procedure Laterality Date COLONOSCOPY [...] time. Comments: Cranial nerves III-XII intact, no vlnlbk-vr-mnav ataxia Psychiatric: Comments: Bright affect, neatly dressed, [...] scheduled or as needed for worsening/no improvement. ESTEBAN Murcia Jacqueline A, APRN.CNP 12/15/2024 12:06 PM Signed 1) Toradol 30 mg once 2) See Dr. Scruggs as scheduled Kimmy Tyson LPN 12/15/2024 1:08 PM Signed Tordol 30mg/ml administered IM to right buttock as ordered and patient tolerated well and denied questions or concerns at this time. Kimmy Tyson LPN Allergies As of Date: 12/15/2024 Noted Allergy Reaction CELESTONE (BETAMETHASONE SODIUM P*12/19/2010 [...] (SULFONAMIDE ANTIBIOTICS) 07/01/2004 Comments: UNKNOWN Date Reviewed: 11/14/2024 Reviewed by: Danitza Mendez LPN - Fully Assessed Reason for Visit: Headache [52] Cmt: Has seen neuro for migraines and and been treated with medrol pack. Patient unable to get this again so soon and asking for alternative treatment. Neuro recommended primary care follow up Primary Visit Diagnosis:Migraine with aura, not intractable, without status migrainosus [G43.109] Order(s):[] keTORolac 30 mg injection (Toradol)Disp: Rfl: Prescriptions as of 12/15/2024 - omeprazole (PRILOSEC) 20 mg capsule Take 1 capsule by mouth daily before breakfast. 1/2 hr before meal. - HYDROcodone-acetaminophen (NORCO) 5-325 mg per tablet Take 1 tablet by mouth every 6 hours as needed for up to 30 days. - mometasone (ELOCON) 0.1 % cream Apply 1 application to affected area once daily. - famotidine (PEPCID) 20 mg tablet Take 1 tablet by mouth at bedtime as needed. - SUMAtriptan (IMITREX) 100 mg tablet Take [...] for constipation Problem List As Of Date 12/15/2024 Noted Resolved Headache [R51] 10/05/2007 11/07/2009 Postlaminectomy [...] back pain [M54.6] 08/24/2023 Hypertension [I10] 09/24/2022 Other instructions from your clinician: 1) Toradol 30 mg once 2) See Dr. Scruggs as scheduled Prescriptions ordered this encounter Disp Refills Start End KETOROLAC 30 MG/ML (1 ML) INJECTION * 1 mL 0 12/15/2024 12/15/2024 Class: Back Office Route: INTRAMUSCULA Sig: Inject 30 mg intramuscularly one time only for 1 dose. Disc: Discontinued by Patient KETOROLAC 30 MG/ML (1 ML) INJECTION * 12/15/2024 12/15/2024 Route: INTRAVENOUS Medications Discontinued During This Encounter Prescriptions - keTORolac (TORADOL) 30 mg/mL (1 mL) soln (Discontinued) Inject 30 mg intramuscularly one time only for 1 dose. Level of Service: OFFICE/OUTPATIENT ESTABLISHED LOW [facility] 20 MIN [[id number]] Additional E/M codes: VISIT CPLX INHERENT EANDM ASSOC WITH MED * Encounter Status:Closed by COBY SOTELO on 12/15/24 CNOV Observed: 11/14/2024 6:00 PM Status: COMPLETED Source: [facility] ANASTASIA SIMPSON ([id number]) 1975 F Date Time Provider Department 11/14/24 6:00 PM [facility]GGS [facility] During your visit today, we recorded [...] OF Injections L4-L5 by Dr Knox in [place] PAST SURGICAL HISTORY Procedure Laterality Date COLONOSCOPY [...] Scruggs RTO in two months and prn. Allergies As of Date: 11/14/2024 Noted Allergy Reaction CELESTONE (BETAMETHASONE SODIUM P*12/19/2010 [...] (SULFONAMIDE ANTIBIOTICS) 07/01/2004 Comments: UNKNOWN Date Reviewed: 11/14/2024 Reviewed by: Danitza Mendez LPN - Fully Assessed Reason for Visit: Follow Up [171] Primary Visit Diagnosis:Primary hypertension [I10] Other Visit Diagnoses:Basal cell carcinoma (BCC), unspecified site [C44.91] Other migraine without status migrainosus, not intractable [G43.809] Postlaminectomy syndrome [M96.1] Acute left-sided thoracic back pain [M54.6] Anxiety [F41.9] DDD (degenerative disc disease), lumbar [M51.369] Degeneration of intervertebral disc of lumbar region, unspecified whether pain present [M51.369] Order(s):HYDROcodone-acetaminophen (NORCO) 5-325 mg per tabletTake 1 tablet by mouth every 6 hours as needed for up to 30 days.Disp: 60 tabletRfl: 0 famotidine (PEPCID) 20 mg tabletTake 1 tablet by mouth at bedtime as needed.Disp: 90 tabletRfl: 1 Prescriptions as of 11/14/2024 - HYDROcodone-acetaminophen (NORCO) 5-325 mg per tablet Take 1 tablet by mouth every 6 hours as needed for up to 30 days. - famotidine (PEPCID) 20 mg tablet Take 1 tablet by mouth at bedtime as needed. - SUMAtriptan (IMITREX) 100 mg tablet Take [...] for constipation Problem List As Of Date 11/14/2024 Noted Resolved Headache [R51] 10/05/2007 11/07/2009 Postlaminectomy [...] 5 MG-ACETAMINOPHEN 325 M* 60 t* 0 11/14/2024 12/14/2024 Route: ORAL Sig: Take 1 tablet by mouth every 6 hours as needed for up to 30 days. FAMOTIDINE 20 MG TABLET 90 t* 1 11/14/2024 Route: ORAL Sig: Take 1 tablet by mouth at bedtime as needed. Medications Discontinued During This Encounter Prescriptions - HYDROcodone-acetaminophen (NORCO) 5-325 mg per tablet (Discontinued) Take 1 tablet by mouth every 6 hours as needed for up to 31 days. Encounter Status:Closed by JACEK SCRUGGS on 11/14/24 PROGRESS Observed: 11/14/2024 5:47 PM Status: COMPLETED [facility] [id number] Author: JACEK SCRUGGS MD Service: ? Author [...] OF Injections L4-L5 by Dr Knox in [place] PAST SURGICAL HISTORY Procedure Laterality Date COLONOSCOPY [...] Scruggs RTO in two months and prn. PROGRESS Observed: 10/21/2024 3:39 PM Status: COMPLETED Source: [facility] ID: [id number] Author: ROBYN HARRIS PA-C Service: ? Author Type: Physician Manager Social Type: Progress Notes Filed: 10/21/2024 15:56 Note [...] for migraine Informed Consent Consent Obtained: Written [place] Protocol A moment to CARE was completed [...] applicable Written Consent Obtained: Written LOT #: [id number] Expiration Date: Month: : 2026 Second vial: LOT #: [id number] Expiration Date: Month: Year: 2026 Injection Sites Left (Units) Left (Sites) Right (Units) Right (Sites) TOTAL (Units) [employer]er 5 1 5 1 10 Procerus Units: [...] months for repeat admin. Robyn Harris PA-C CNOV Observed: 10/21/2024 3:30 PM Status: COMPLETED Source: [facility] Office Visit ([facility]) ANASTASIA SIMPSON ([id number]) 1975 F Date Time Provider Department 10/21/24 3:30 PM ROBYN HARRIS [facility] During your visit today, we [...] for migraine Informed Consent Consent Obtained: Written [place] Protocol A moment to CARE was completed [...] applicable Written Consent Obtained: Written LOT #: [id number] Expiration Date: Month: Year: 2026 Second vial: LOT #: [id number] Expiration Date: Month: Year: 2026 Injection Sites Left (Units) Left (Sites) Right (Units) Right (Sites) TOTAL (Units) [employer] Dealer 5 1 5 1 10 Procerus Units: [...] for further instructions. Referring Provider: ROBYN HARRIS [[id number]] Allergies As of Date: 10/21/2024 Noted Allergy [...] (SULFONAMIDE ANTIBIOTICS) 07/01/2004 Comments: UNKNOWN Date Reviewed: 10/21/2024 Reviewed by: Robyn Harris PA-C - Fully Assessed Reason for Visit: Neurotoxin Injection [3854] Primary Visit Diagnosis:Intractable chronic migraine with aura and without status migrainosus [G43.E19] Order(s):[] onabotulinum toxin type A 200 Units injection (BOTOX)Disp: Rfl: Prescriptions as of 10/21/2024 - HYDROcodone-acetaminophen (NORCO) 5-325 mg per tablet Take 1 tablet by mouth every 6 hours as needed for up to 31 days. - SUMAtriptan (IMITREX) 100 mg tablet Take [...] for constipation Problem List As Of Date 10/21/2024 Noted Resolved Headache [R51] 10/05/2007 11/07/2009 Postlaminectomy [...] back pain [M54.6] 08/24/2023 Hypertension [I10] 09/24/2022 Other instructions from your clinician: Botox Home Instruction: Instruction after botox injection: [...] not, call our office for further instructions. Prescriptions ordered this encounter Disp Refills Start End ONABOTULINUMTOXINA 200 UNIT SOLUTION* 10/21/2024 10/21/2024 Route: INTRAMUSCULA Disposition: Return in about 3 months (around 01/18/2025). Follow-up and Disposition History for Encounter Date Provider Department Center 10/21/2024 [id number], MELANIE [facility] Encounter Status:Closed by ROBYN HARRIS on 10/21/24 CNPN Observed: 10/13/2024 12:00 AM Status: COMPLETED Source: [facility] Telephone ([employer]) ANASTASIA SIMPSON ([id number]) 1975 F Date Time Provider Department 10/13/24 [...] 6 hours as needed for nausea/vomiting. - HYDROcodone-acetaminophen (NORCO) 5-325 mg per tablet Take [...] Encounter Status:Closed by MARJORIE CARBAJAL on 10/13/24 SCARLETT Observed: 10/12/2024 12:00 AM Status: COMPLETED Source: [facility] Telephone ([employer]) CALVINANASTASIA ([id number]) 1975 F Date Time Provider Department 10/12/24 ROBYN HARRIS During your visit today, we recorded the following information about you: Ashley Contreras LPN 10/12/2024 12:27 PM Signed Pt calling to check the status on the PA for Botox she has been waiting on . Pt was seen last week and has not heard anything. Please advise pt. YAMILETH Barlow Jessica, LPN 10/12/2024 1:03 PM Signed Please check on the status of this, I don't see anything in her chart. YAMILETH Arellano Melanie, RN 10/13/2024 9:22 AM Signed New request for [...] 6 hours as needed for nausea/vomiting. - HYDROcodone-acetaminophen (NORCO) 5-325 mg per tablet Take [...] Encounter Status:Closed by ROBYN RIVERO on 10/13/24 IVONNE Observed: 10/05/2024 4:00 PM Status: COMPLETED Source: [facility] Office Visit ([facility]) ANASTASIA SIMPSON ([id number]) 1975 F Date Time Provider Department 10/05/24 4:00 PM ROBYN HARRIS During your visit today, we recorded the following information about you: Pulse Blood pressure 83/minute 132/95 Robyn Harris PA-C 10/05/2024 4:21 PM Signed [facility] Follow up CC: Headache [...] OF Injections L4-L5 by Dr Knox in [place] PAST SURGICAL HISTORY Procedure Laterality Date COLONOSCOPY [...] pain. SKIN:Negative for lesions, rash, and itching. HEMATOLOGIC/LYMPHATIC/IMMUNOLOGIC:Negative for prolonged bleeding, bruising easily or swollen [...] which included preparing to see the patient, [id number] patient care, completing clinical documentation, obtaining and/or reviewing separately obtained history, performing a medically appropriate examination, counseling and educating the patient/family/caregiver, and ordering medications, tests, or procedures. Robyn Harris PA-C General Neurology [address] [place] [address]. [id number] Appointment: [phone] Robyn Harris PA-C 10/05/2024 4:09 PM Addendum Will get botox approved and call when it is approved Will try to break the headache with a steroid pack in the morning for five days Follow up with botox Allergies As of Date: 10/05/2024 Noted Allergy Reaction CELESTONE (BETAMETHASONE SODIUM P*12/19/2010 [...] PA-C - Fully Assessed Reason for Visit: Established Patient [175] Cmt: Migraines-c/o bad reaction emgality, wants to talk about taking botox Primary Visit Diagnosis:Intractable chronic migraine with aura and without status migrainosus [G43.E19] Order(s):methylPREDNISolone (MEDROL, YAKELIN,) 4 mg Dose-PackTake as directedDisp: 21 tabletRfl: 0 Prescriptions as of 10/05/2024 - methylPREDNISolone (MEDROL, YAKELIN,) 4 mg Dose-Pack Take as directed - ondansetron orally disintegrating (ZOFRAN ODT) 4 mg disintegrating tablet Take 1 tablet by mouth every 6 hours as needed for nausea/vomiting. - HYDROcodone-acetaminophen (NORCO) 5-325 mg per tablet Take [...] for constipation Problem List As Of Date 10/05/2024 Noted Resolved Headache [R51] 10/05/2007 11/07/2009 Postlaminectomy [...] back pain [M54.6] 08/24/2023 Hypertension [I10] 09/24/2022 Other instructions from your clinician: Will get botox approved and call when it is approved Will try to break the headache with a steroid pack in the morning for five days Follow up with botox Prescriptions ordered this encounter Disp Refills Start End METHYLPREDNISOLONE 4 MG TABLETS IN A* 21 t* 0 10/05/2024 10/11/2024 Sig: Take as directed Disposition: Return for botox. Follow-up and Disposition History for Encounter Date Provider Department Center 10/05/2024 [id number] HARRIS [facility] Encounter Status:Closed by ROBYN HARRIS on 10/05/24 PROGRESS Observed: 10/05/2024 3:31 PM Status: COMPLETED Source: [facility] HN ID: [id number] Author: ROBYN HARRIS PA-C Service: ? Author Type: Physician Manager Social Type: Progress Notes Filed: 10/05/2024 16:21 Note Text: [facility] Follow up CC: Headache [...] OF Injections L4-L5 by Dr Knox in [place] PAST SURGICAL HISTORY Procedure Laterality Date COLONOSCOPY [...] pain. SKIN:Negative for lesions, rash, and itching. HEMATOLOGIC/LYMPHATIC/IMMUNOLOGIC:Negative for prolonged bleeding, bruising easily or swollen [...] which included preparing to see the patient, [id number] patient care, completing clinical documentation, obtaining and/or reviewing separately obtained history, performing a medically appropriate examination, counseling and educating the patient/family/caregiver, and ordering medications, tests, or procedures. Robny Harris PA-C General Neurology [address] [place] [address]. [id number] Appointment: [phone] PROGRESS Observed: 09/19/2024 5:23 PM Status: COMPLETED Source: [facility] HNO ID: [id number] Author: JACEK SCRUGGS MD Service: ? Author [...] OF Injections L4-L5 by Dr Knox in [place] PAST SURGICAL HISTORY Procedure Laterality Date COLONOSCOPY [...] ICD10: F41.9 - stable. Jacek Scruggs MD CNOV Observed: 09/19/2024 5:20 PM Status: COMPLETED Source: [facility] ANASTASIA SIMPSON ([id number]) 1975 F Date Time Provider Department 09/19/24 5:20 PM [facility] During your visit today, we recorded [...] OF Injections L4-L5 by Dr Knox in [place] PAST SURGICAL HISTORY Procedure Laterality Date COLONOSCOPY [...] ICD10: F41.9 - stable. Jacek Scruggs MD Allergies As of Date: 09/19/2024 Noted Allergy Reaction CELESTONE (BETAMETHASONE SODIUM P*12/19/2010 [...] (SULFONAMIDE ANTIBIOTICS) 07/01/2004 Comments: UNKNOWN Date Reviewed: 09/19/2024 Reviewed by: Danitza Mendez LPN - Fully Assessed Reason for Visit: Follow Up [171] Primary Visit Diagnosis:Other migraine without status migrainosus, not intractable [G43.809] Other Visit Diagnoses:Primary hypertension [I10] Postlaminectomy syndrome [M96.1] Basal cell carcinoma (BCC), unspecified site [C44.91] Anxiety [F41.9] Prescriptions as of 09/19/2024 - HYDROcodone-acetaminophen (NORCO) 5-325 mg per tablet Take [...] for constipation Problem List As Of Date 09/19/2024 Noted Resolved Headache [R51] 10/05/2007 11/07/2009 Postlaminectomy [...] back pain [M54.6] 08/24/2023 Hypertension [I10] 09/24/2022 Medications Discontinued During This Encounter Prescriptions - atogepant (QULIPTA) 60 mg tablet (Discontinued) Take 1 tablet (60 mg) by mouth once daily. Disposition: Return in about 2 months (around 11/18/2024). Follow-up and Disposition History for Encounter Date Provider Department Center 09/19/2024 [id number] SCRUGGS FAMPWS [facility] Encounter Status:Closed by JACEK SCRUGGS on 09/19/24 CNPN Observed: 09/08/2024 12:00 AM Status: COMPLETED Source: [facility] Telephone (NEMOWS) ANASTASIA SIMPSON ([id number]) 1975 F Date Time Provider Department 09/08/24 ROBYN HARRIS During your visit today, we recorded the following information about you: Mariel Johnston RN 09/08/2024 11:09 AM Signed Patient calling to give message to MARANDA Jaimes that her [employer] insurance will not cover her Atogepant medication. [...] (60 mg) by mouth once daily. - HYDROcodone-acetaminophen (NORCO) 5-325 mg per tablet Take [...] Encounter Status:Closed by MARJORIE CARBAJAL on 09/09/24 SCARLETT Observed: 09/08/2024 12:00 AM Status: COMPLETED Source: [facility] Telephone ([facility]) ANASTASIA SIMPSON ([id number]) 1975 F Date Time Provider Department 09/08/24 ROBYN HARRIS [facility] During your visit today, we recorded the following information about you: Lian Rivero MA 09/08/2024 4:45 PM Signed Received Prior Authorization request via: From [facility] Medication being Authorized: Qulipta 60 mg Completed PA via: Completed form, placed on providers desk for signature, form needs faxed to: [phone] (as stated on form) Reference number/ Provider: ANUSHA Haney Heidi, MA 09/08/2024 4:45 PM Signed Request completed and faxed. ANUSHA Hicks Sherrie, RN 09/09/2024 11:39 AM Signed Patient updated. Mariel Johnston RN MatRobyn batres RN 09/09/2024 5:04 PM Addendum Received fax denial from [facility] in [place]. Showed the denial to Robyn Harris PA-C and it will be sent to [facility]. Allergies As of Date: 09/08/2024 Noted Allergy [...] (60 mg) by mouth once daily. - HYDROcodone-acetaminophen (NORCO) 5-325 mg per tablet Take [...] Encounter Status:Closed by LIAN RIVERO on 09/08/24 PROGRESS Observed: 09/02/2024 10:46 AM Status: COMPLETED Source: [facility] ID: [id number] Author: ROBYN HARRIS PA-C Service: ? Author Type: Physician Manager Social Type: Progress Notes Filed: 09/02/2024 11:10 Note Text: [facility] Follow Up / Established Virtual Visit I have communicated my name and active licensure. The patient's identity and physical location were verified at the time of this visit. Either the patient or their legal school admissions representative has been informed of the risks and benefits of -- and alternatives to -- treatment through a remote evaluation and consents to proceed with the evaluation remotely. Individuals who were included in, or assisted with the encounter were: Anastasia Simpson Polly Jaimes Complaint/Issues: Anastasia Simpson is a 48 year old female seen in the [facility] for: Migraine Most Recent [...] it turned into a large red warm [place]apai-apache. She does again think of it so [...] No apparent muscle atrophy or deformity/contracture. Assessment AND Plan 09/02/2024 - Robyn Harris PA-C ASSESSMENT [...] MEDICAL HISTORY Diagnosis Date Basal cell carcinoma 2015 multiple sites High blood pressure Moderate major depression, single episode (HCC) 11/13/2020 PMH - PAST MEDICAL HISTORY OF irritable bowel syndrome PMH - PAST MEDICAL HISTORY OF back pain PMH - PAST MEDICAL HISTORY OF Injections L4-L5 by Dr Knox in [place] PAST SURGICAL HISTORY Procedure Laterality Date COLONOSCOPY [...] Range Case Report Gynecologic Cytology Report Case: [id number] Authorizing Provider: Judith Newman APRN.REAL ESTATE TRANSACTION MANAGER Collected: 08/03/2024 07:50 AM Ordering Location: OB/Gynecology [...] at recommended intervals, and clinical correlation. PAP Component Overhaul Operator Comment This specimen has been analyzed by the SigniantPrep Imaging System, an automated imaging and review system, which assists the laboratory in evaluating cells on ThinPrep Pap tests. Following automated imaging, selected dutton from every slide are reviewed by a penciller. Performing Lab Technical component, penciller screening performed at [facility], [address], [facility] [address] CLIA# [id number] Diagnostic interpretation performed at [facility] [facility] [address] CLIA# [id number] Community Development Planner: Mat Ulrich M.D. HIGH RISK HUMAN PAPILLOMA [...] which included preparing to see the patient, [id number] patient care, completing clinical documentation, obtaining and/or reviewing separately obtained history, performing a medically appropriate examination, counseling and educating the patient/family/caregiver, and ordering medications, tests, or procedures. Robyn Harris PA-C SKY SCREENING W NICOLA Observed: 7:41 AM Status: F Source: [facility] * * *Final Report* * * DATE OF EXAM: Aug 30 2024 7:41AM WRW [id number] - [facility] SCREENING W NICOLA / PROCEDURE REASON: Screening breast examination * * * * Physician Interpretation * * * * RESULT: [place] [address] [place] [address] #[id number] - [facility] SCREENING W NICOLA HISTORY: Patient is 48 [...] Eliana Wheeler M.D. Electronically signed on: 08/31/2024 Pile Driving Superintendent: JOY Transcribe Date/Time: Aug 30 2024 7:21A Dictated by: ELLA JEWELL MD This examination was interpreted and the report reviewed and electronically signed by: ELIANA WHEELER MD on Aug 31 2024 8:01AM EST [id number] PROGRESS Observed: 08/30/2024 7:10 AM Status: COMPLETED Source: [facility] ID: [id number] Author: JEMIMA RUIZ Mammo Tech Service: ? Author Type: Spinner Concrete Pipe Type: Progress Notes Filed: 08/30/2024 07:20 Note [...] PATIENT PRESENTS WITH AN IMPLANTABLE OR ATTACHED LEMON GROWER: No RADIOLOGY DEPARTMENT: Mammography PERIPHERAL IV DATA: Not applicable SIGNED BY: Jerrod Minor August 30, 2024 7:20 AM CNPN Observed: 08/29/2024 12:00 AM Status: COMPLETED Source: [facility] Telephone ([employer]) CALVINANASTASIA ([id number]) 1975 F Date Time Provider Department 08/29/24 JACEK SCRUGGS During your visit today, we recorded the following information about you: Nati Raya RN 08/29/2024 9:07 AM Signed Prior Authorization Documentation Prior authorization requested for the following medication: Medication: Omeprazole Provider: Dr. Scruggs Insurance Company Name: Michael/Roby [employer] Phone number: Patient ID number: [id number] RXBIN: [id number] RXGRP: [id number] Pharmacy Name: [facility] Telephone number: [phone] MARTITA Ortega Janice, LPN 08/29/2024 9:18 AM Signed Electronic PA requested. Rachele Santana LPN 08/29/2024 9:24 AM Signed Unable to complete this electronically. Will try on covermymeds Rachele Santana LPN 08/29/2024 9:24 AM Signed ANASTASIA SIMPSON (Patel: [id number]) - [id number] Omeprazole 20MG dr capsules status: PA Request [...] 2:37 PM Signed Appeal requested faxed to [phone]. Rachele Santana LPN 08/30/2024 9:27 AM Signed [...] Date Reviewed: 08/03/2024 Reviewed by: Judith Newman APRN.CNP - Fully Assessed Reason for Visit: Insurance Authorization [1693] Prescriptions as of 08/31/2024 - omeprazole (PRILOSEC) 20 mg capsule Take 1 capsule by mouth daily before breakfast. 1/2 hr before meal. - ondansetron orally disintegrating (ZOFRAN ODT) 4 mg disintegrating tablet Take 1 tablet by mouth every 6 hours as needed for nausea/vomiting. - HYDROcodone-acetaminophen (NORCO) 5-325 mg per tablet Take [...] Encounter Status:Closed by RACHELE SANTANA on 08/31/24 SCARLETT Observed: 08/29/2024 12:00 AM Status: COMPLETED Source: [facility] Telephone ([employer]) ANASTASIA SIMPSON ([id number]) 1975 F Date Time Provider Department 08/29/24 [...] Date Reviewed: 08/03/2024 Reviewed by: Judith Newman APRN.REAL ESTATE TRANSACTION MANAGER - Fully Assessed Reason for Visit: Insurance Authorization [3973] Cmt: Emgality Renewal Prescriptions as of 08/29/2024 - omeprazole (PRILOSEC) 20 mg capsule Take 1 capsule by mouth daily before breakfast. 1/2 hr before meal. - ondansetron orally disintegrating (ZOFRAN ODT) 4 mg disintegrating tablet Take 1 tablet by mouth every 6 hours as needed for nausea/vomiting. - HYDROcodone-acetaminophen (NORCO) 5-325 mg per tablet Take [...] Encounter Status:Closed by CHRISTELLE WARNER on 08/29/24 CNCO Observed: 08/11/2024 12:00 AM Status: COMPLETED Source: [facility] Letter Text CNPN Observed: 08/08/2024 12:00 AM Status: COMPLETED Source: [facility] Telephone (NEMOWS) ANASTASIA SIMPSON ([id number]) 1975 F Date Time Provider Department 08/08/24 [...] 1:02 PM Signed Called patient, no answer. identify pt by first name. M regarding message below. Marjorie Carbajal LPN August 10, 2024 1:02 PM Robyn Harris PA-C Neuro [id number] minutes ago (12:08 PM) MQ This could [...] Date Reviewed: 08/03/2024 Reviewed by: Judith Newman APRN.REAL ESTATE TRANSACTION MANAGER - Fully Assessed Reason for Visit: Medication Question [1478] Prescriptions as of 08/10/2024 - HYDROcodone-acetaminophen (NORCO) 5-325 mg per tablet Take [...] Encounter Status:Closed by MARJORIE CARBAJAL on 08/10/24 PAP TEST Collected: 7:50 AM Status: F Source: [facility] Order Comment: Specimen Type : FLUID SPECIMEN Ordering Facility: [facility] Address: [address] [place] [address] TYPE CODE TESTS RESULT OUT OF RANGE REFERENCE UNITS PATHOLOGY [id number] CASE REPORT Result Comment: Gynecologic Cytology Report Case: [id number] Authorizing Provider: Judith Newman APRN.CNP Collected: 08/03/2024 07:50 AM Ordering Location: OB/Gynecology Received: 08/03/2024 11:14 AM First Screen: Monica Riley, CT, ASCP Pathologist: Arlette Mccray MD Specimen: Pap Test, ThinPrep, Cervix PATHOLOGY [id number] ADEQUACY Satisfactory for interpretation. PATHOLOGY [id number] PAP GENERAL CATEGORIZATION Epithelial Cell Abnormality PATHOLOGY [id number] INTERPRETATION, CYTOLOGY, SURG TECH Abnormal Result Comment: Atypical squ amous cells of undetermined significance (ASC-US). OLOGY [id number] CYTOLOGY PAP OTHER INTERPRETATION Endometrial cells present in a woman 45 years or older (see comment). PATHOLOGY [id number] DIAGNOSIS COMMENT Endometrial cells in women 45 years or older, may be associated with benign endometrium, hormonal alterations and less commonly, endometrial or uterine abnormalities. Endometrial evaluation is recommended in postmenopausal women. PATHOLOGY [id number] CLINICAL HISTORY, CYTOLOGY, SURG TECH Routine Exam PATHOLOGY [id number] LMP 07/30/2024 PATHOLOGY PAPDC PAP DISCLAIMER COMMENT The Pap Smear is a screening test for cervical cancer. False negative results occur with all screening tests, emphasizing the need for rescreening at recommended intervals, and clinical correlation. PATHOLOGY PAPIC PAP TOWER ERECTOR HELPER COMMENT This specimen has been analyzed by the ThinPrep Imaging System, an automated imaging and review system, which assists the laboratory in evaluating cells on ThinPrep Pap tests. Following automated imaging, selected dutton from every slide are reviewed by a cytotechnologis tUriel PATHOLOGY FPLAB FINAL PERFORMING LAB Result Comment: Technical co mpoemi, penciller screening performed at [facility], [address] [place] [address] CLIA# [id number] Diagnostic interpretation performed at [facility], [address] [place] [address] CLIA# [id number] Community Development Planner: Mat Ulrich M.D. Performed By: #### [id number] # ### [facility] CLIA [id number] [address] [place], [place] [address] [address] [place] HIGH RISK HUMAN PAPILLOMA VIRUS (HPV), PCR FOR DETECTION AND GENOTYPING Collected: 08/03/2024 7:50 AM Status: F Source: [facility] Order Comment: Specimen Type : FLUID SPECIMEN Ordering Facility: [facility] Address: [address] [place] [address] TYPE CODE TESTS RESULT OUT OF RANGE REFERENCE UNITS LAB 13676-0(LOINC) HPV16 Ag Spec Ql Not detected Not detected LAB 80876-1(LOINC) HPV18 Ag Spec Ql Not detected Not detected LAB 41873-6(LOINC) HPV HR 12 DNA Cvx Ql BRANDYN+probe Not detected Not detected Result Comment: High Risk HP V Other Type includes HPV types 31, 33, 35, 39, 45, 51, 52, 56, 58, 59, 66 and 68. Performed By: #### HPVHRT ## ## [facility] CLIA [id number] [address] [place] [address] CNOV Observed: 08/03/2024 7:30 AM Status: COMPLETED Source: [facility] Office Visit (OBGYWM) ANASTASIA SIMPSON Gay ([id number]) 1975 F Date Time Provider Department 08/03/24 7:30 AM JUDITH NEWMAN OBGYWM During your visit today, we recorded the following information about you: Blood pressure Weight Height Last Period 102/60 64 kg 1.676 m 07/30/24 Judith Newman APRN.REAL ESTATE TRANSACTION MANAGER 08/03/2024 7:55 AM Signed Pension Consultant offered: Patient declines. Anastasia is a 48 [...] Multiple0 Live Births0 Comment: 1 vaginal delivery Optical Fabricator History LMP: 07/30/2024 (Approximate), Having periods Age at Menarche: Age at First : Age at Menopause: Optical Fabricator History Comments: Sexual Activity: Yes; Male; ablation [...] OF Injections L4-L5 by Dr Knox in [place] PAST SURGICAL HISTORY Procedure Laterality Date COLONOSCOPY [...] discussed with the Patient or Patient's Authorized Insurance Account Manager. As applicable, any other physician, advance practice provider, medical student, or other health professional student that will be observing or involved in the sensitive examination for educational or training purposes was discussed with the Patient or Authorized Insurance Account Manager. The Patient or Authorized Insurance Account Manager has agreed to proceed with the sensitive [...] external genitalia normal, normal Bartholin's glands, urethra, [place]'s glands, no vulvar lesions, no cervical lesions, [...] year or sooner as needed Judith Newman APRN.REAL ESTATE TRANSACTION MANAGER Allergies As of Date: 08/03/2024 Noted Allergy Reaction CELESTONE (BETAMETHASONE SODIUM P*12/19/2010 [...] Date Reviewed: 08/03/2024 Reviewed by: Judith Newman APRN.REAL ESTATE TRANSACTION MANAGER - Fully Assessed Reason for Visit: Yearly Exam [187] Primary Visit Diagnosis:Encounter for gynecological examination (general) (routine) without abnormal findings [Z01.419] Other Visit Diagnoses:Screening for cervical cancer [Z12.4] Encounter for screening for human papillomavirus (HPV) [Z11.51] Encounter for screening mammogram for breast cancer [Z12.31] Order(s):PAP TEST [FCM2025] Order #: [id number]. #:[id number] SKY SCREENING W NICOLA [[id number]] Order #: [id number] FUTURE Prescriptions as of 08/03/2024 - cyclobenzaprine (FLEXERIL) 10 mg tablet Take [...] (100 mg) by mouth as needed. - HYDROcodone-acetaminophen (NORCO) 5-325 mg per tablet Take [...] for constipation Problem List As Of Date 08/03/2024 Noted Resolved Headache [R51] 10/05/2007 11/07/2009 Postlaminectomy [...] back pain [M54.6] 08/24/2023 Hypertension [I10] 09/24/2022 Disposition: Return in 1 year (on 08/03/2025) for Annual Exam. Follow-up and Disposition History for Encounter Date Provider Department Center 08/03/2024 [id number] NEWMAN Earline [facility] Encounter Status:Closed by JUDITH NEWMAN on 08/03/24 PROGRESS Observed: 08/03/2024 7:18 AM Status: COMPLETED Source: [facility] HNO ID: [id number] Author: JUDITH NEWMAN APRN.REAL ESTATE TRANSACTION MANAGER Service: ? Author Type: Nurse Practitioner Type: Progress Notes Filed: 08/03/2024 07:55 Note Text: Pension Consultant offered: Patient declines. Anastasia is a 48 [...] Multiple0 Live Births0 Comment: 1 vaginal delivery Optical Fabricator History LMP: 07/30/2024 (Approximate), Having periods Age at Menarche: Age at First : Age at Menopause: Optical Fabricator History Comments: Sexual Activity: Yes; Male; ablation [...] OF Injections L4-L5 by Dr Knox in [place] PAST SURGICAL HISTORY Procedure Laterality Date COLONOSCOPY [...] discussed with the Patient or Patient's Authorized Insurance Account Manager. As applicable, any other physician, advance practice provider, medical student, or other health professional student that will be observing or involved in the sensitive examination for educational or training purposes was discussed with the Patient or Authorized Insurance Account Manager. The Patient or Authorized Insurance Account Manager has agreed to proceed with the sensitive [...] external genitalia normal, normal Bartholin's glands, urethra, [place]'s glands, no vulvar lesions, no cervical lesions, [...] year or sooner as needed Judith Newman APRN.BOONE PANTOJA Observed: 07/29/2024 12:00 AM Status: COMPLETED Source: [facility] CALVINANASTASIA ([id number]) 1975 F Date Time Provider Department 07/29/24 DILLON KIM [facility] During your visit today, we recorded the following information about you: Dillon Kim APRN.CNP 07/29/2024 3:23 PM Signed Call Patient let [...] (100 mg) by mouth as needed. - HYDROcodone-acetaminophen (NORCO) 5-325 mg per tablet Take [...] Encounter Status:Closed by KAVEH WALTERS on 07/31/24 BACTERIA UR CULT Observed: 07/28/2024 2:13 PM Status: F Source: [facility] CULTURE, URINE: No growth (<1,000 CFU/ml) Performed By: #### 630-4 ### # [facility] CLIA [id number] [address] [place] [address] ECG COMPLETE Observed: 07/28/2024 1:46 PM Status: F Source: [facility] Ventricular Rate : 68 BPM Atrial Rate : 68 BPM P-R Interval : 146 ms QRS Duration : 88 ms Q-T Interval : 404 ms QTC Calculation(Bazett) : 429 ms Calculated P Camden : 70 degrees Calculated R [place] : 18 degrees Calculated T Camden : 50 degrees NORMAL SINUS RHYTHM NORMAL ECG Confirmed by MD JENSEN GREGORY () on 07/29/2024 3:17:23 PM NAME : ANASTASIA SIMPSON PID : [id number] : 1975 Gender : Female Race : ORD : [id number] Procedure Date : Jul 28 2024 13:46:57 Edit Date : Jul 29 2024 15:17:24 Diagnosis: NORMAL SINUS RHYTHM NORMAL ECG Confirmed by MD JENSEN GREGORY () on 07/29/2024 3:17:23 PM Test Reason : Location : [facility] : [facility] Overread By : MD JENSEN GREGORY Edited By : MD JENSEN GREGORY Referred By : KILEY KOENIG Acquired by : RADHA RIDLEY LUMBAR 3V AP/LAT/L5-S1 Observed: 03/2024 1:42 PM Status: F Source: [facility] * * *Final Report* * * DATE [...] Stable examination. No acute findings are identified. Pile Driving Superintendent: [facility] Transcribe Date/Time: Jul 28 2024 1:52P Dictated by : BIRD BLOUNT MD This examination was interpreted and the report reviewed and electronically signed by: BIRD BLOUNT MD on Jul 28 2024 1:56PM EST [id number] XR SACRUM/COCCYX 3V AP/LAT Observed: 03/2024 1:42 PM Status: F Source: [facility] * * *Final Report* * * DATE [...] intact. IMPRESSION: No acute findings are identified. Pile Driving Superintendent: [facility] Transcribe Date/Time: Jul 28 2024 1:52P Dictated by : BIRD BLOUNT MD This examination was interpreted and the report reviewed and electronically signed by: BIRD BLOUNT MD on Jul 28 2024 2:03PM EST [id number] PROGRESS Observed: 07/28/2024 1:30 PM Status: COMPLETED Source: [facility] HNO ID: [id number] Author: HENRI GLASGOW RT(Dre) Service: ? Author Type: Spinner Concrete Pipe Type: Progress Notes Filed: 07/28/2024 13:41 Note [...] PATIENT PRESENTS WITH AN IMPLANTABLE OR ATTACHED LEMON GROWER: No RADIOLOGY DEPARTMENT: General X-ray: Exam(s) Completed: Spine X-Ray(s): Lumbar AP / LAT / L5-S1 and Sacrum/Coccyx PERIPHERAL IV DATA: Not applicable SIGNED BY: RT Shannen(R) July 28, 2024 1:28 PM IVONNE Observed: 07/28/2024 1:15 PM Status: COMPLETED Source: [facility] Office Visit (WSTR) ANASTASIA SIMPSON ([id number]) 1975 F Date Time Provider Department 07/28/24 1:15 [address] [facility] During your visit today, we recorded the following information about you: Temperature Pulse Respiration Blood pressure 97.7 degrees 78/minute 18/minute 129/96 Weight Last Period 64 kg 07/08/24 Dillon Kim APRN.REAL ESTATE TRANSACTION MANAGER 07/28/2024 2:53 PM Signed Subjective Patient came [...] history is provided by the patient. No foreign language professor was used. Review of Systems Constitutional: Negative. [...] OF Injections L4-L5 by Dr Knox in [place] PAST SURGICAL HISTORY Procedure Laterality Date COLONOSCOPY [...] a day. galcanezumab-gnln 120 mg/mL subcutaneous syringe ([employer]) Inject 2 mL subcutaneously once every month. [...] Stable examination. No acute findings are identified. Pile Driving Superintendent: [facility] Transcribe Date/Time: Jul 28 2024 1:52P [...] IMPRESSION IMPRESSION: No acute findings are identified. Pile Driving Superintendent: NAGI Transcribe Date/Time: Jul 28 2024 1:52P [...] possible further testing and evaluation. Dillon Kim APRN.REAL ESTATE TRANSACTION MANAGER Allergies As of Date: 07/28/2024 Noted Allergy Reaction CELESTONE (BETAMETHASONE SODIUM P*12/19/2010 [...] LPN - Fully Assessed Reason for Visit: Back Pain [12] Cmt: Lower back pain, nausea burning in chest, x 6 days Primary Visit Diagnosis:Pain [R52] Other Visit Diagnosis:Nausea [R11.0] Order(s):XR LUMBAR GENERAL 3V AP/LAT/L5-S1 [[id number]] Order #: [id number] FUTURE XR SACRUM/COCCYX 3V AP/LAT [[id number]] Order #: [id number] FUTURE ECG COMPLETE [ECG01] Order #: [id number] UA DIP, URINE (POC) [[id number]] Order #: [id number]. #:[id number] URINE CULTURE [SQURCUL] Order #: [id number]. #:[id number] cyclobenzaprine (FLEXERIL) 10 mg tabletTake 1 tablet by mouth two times a day as needed for muscle spasm for up to 10 days.Disp: 20 tabletRfl: 0 predniSONE (DELTASONE) 10 mg tabletTake 4 tabs daily for 3 days, then 2 tabs daily for 3 days, then 1 tab daily for 3 days with food.Disp: 21 tabletRfl: 0 Prescriptions as of 07/28/2024 - cyclobenzaprine (FLEXERIL) 10 mg tablet Take [...] (100 mg) by mouth as needed. - HYDROcodone-acetaminophen (NORCO) 5-325 mg per tablet Take [...] for constipation Problem List As Of Date 07/28/2024 Noted Resolved Headache [R51] 10/05/2007 11/07/2009 Postlaminectomy [...] Acute left-sided thoracic back pain [M54.6] 08/24/2023 Prescriptions ordered this encounter Disp Refills Start End CYCLOBENZAPRINE 10 MG TABLET 20 t* 0 07/28/2024 08/07/2024 Route: ORAL Sig: Take 1 tablet by mouth two times a day as needed for muscle spasm for up to 10 days. PREDNISONE 10 MG TABLET 21 t* 0 07/28/2024 08/06/2024 Sig: Take 4 tabs daily for 3 days, then 2 tabs daily for 3 days, then 1 tab daily for 3 days with food. Medications Discontinued During This Encounter Prescriptions - ondansetron orally disintegrating (ZOFRAN ODT) 4 mg disintegrating tablet (Discontinued) Take 1 tablet by mouth every 6 hours as needed for nausea/vomiting. Encounter Status:Closed by DILLON KIM on 07/28/24 PROGRESS Observed: 07/28/2024 12:50 PM Status: COMPLETED [id number] Author: DILLON KIM APRN.REAL ESTATE TRANSACTION MANAGER Service: ? Author Type: Nurse Practitioner Type: [...] history is provided by the patient. No foreign language professor was used. Review of Systems Constitutional: Negative. [...] OF Injections L4-L5 by Dr Knox in [place] PAST SURGICAL HISTORY Procedure Laterality Date COLONOSCOPY [...] Stable examination. No acute findings are identified. Pile Driving Superintendent: [facility] Transcribe Date/Time: Jul 28 2024 1:52P [...] IMPRESSION IMPRESSION: No acute findings are identified. Pile Driving Superintendent: [facility] Transcribe Date/Time: Jul 28 2024 1:52P [...] further testing and evaluation. Dillon Kim APRN.BOONE PANTOJA Observed: 07/14/2024 12:00 AM Status: COMPLETED Source: [facility] Telephone (HEATHER) ANASTASIA SIMPSON ([id number]) 1975 F Date Time Provider Department 07/14/24 [...] 07/15/2024 9:25 AM Signed PA started via [employer], Patel- [id number]. Please await decision. YAMILETH Arellano Gillian, OCCA [...] (100 mg) by mouth as needed. - HYDROcodone-acetaminophen (NORCO) 5-325 mg per tablet Take [...] Encounter Status:Closed by CHRISTELLE WARNER on 07/18/24 SCARLETT Observed: 07/13/2024 12:00 AM Status: COMPLETED Source: [facility] Telephone (NEMOWS) ANASTASIA SIMPSON ([id number]) 1975 F Date Time Provider Department 07/13/24 [...] (100 mg) by mouth as needed. - HYDROcodone-acetaminophen (NORCO) 5-325 mg per tablet Take [...] Encounter Status:Closed by YOKO CHATTERJEE on 07/13/24 PROGRESS Observed: 07/12/2024 7:04 AM Status: COMPLETED Source: [facility] ID: [id number] Author: ROBYN HARRIS PA-C Service: ? Author Type: Physician Manager Social Type: Progress Notes Filed: 07/12/2024 08:05 Note Text: Neurology Outpatient Clinic Date: July 12, 2024 Patient Name: Anastasia Simpson Referring physician: Jacek Abbasi [facility] [address] Consult requested for headaches by Dr. Scruggs. Recommendations will be communicated via shared medical record or US mail. Primary physician: Jacek Abbasi [facility] [place] [address] Reason for Evaluation: Headaches Subjective HPI Anastasia [...] OF Injections L4-L5 by Dr Knox in [place] Family History: FAMILY HISTORY Problem Relation Age [...] 2/4 Coordination: finger-to- nose-finger intact bilaterally and llzd-zt-pcei intact bilaterally. Gait: Patient's gait is normal Romberg: Negative DATA REVIEWED Actual films/image/tracing reviewed and summarized as follows: MRI brain Old records reviewed and summarized as follows: Neurology, primary care Assessment/Plan Assessment AND Plan: Anastasia Simpson is a [...] which included preparing to see the patient, hjkx-br-rtaa patient care, completing clinical documentation, obtaining and/or reviewing separately obtained history, performing a medically appropriate examination, counseling and educating the patient/family/caregiver, and ordering medications, tests, or procedures. Robyn Harris PA-C [facility] Neurology This document has been created with the use of voice recognition technology. It may contain inaccuracies: (e.g. misspellings, inaccurate syntax or word sense) that have escaped review. CNOV Observed: 07/12/2024 7:00 AM Status: COMPLETED Source: [facility] Office Visit (NEMOWS) ANASTASIA SIMPSON ([id number]) 1975 F Date Time Provider Department 07/12/24 [...] Name: Anastasia Simpson Referring physician: Jacek Abbasi [place] [phone] Consult requested for headaches by Dr. Scruggs. Recommendations will be communicated via shared medical record or US mail. Primary physician: [place] [address] Reason for Evaluation: Headaches Subjective HPI Anastasia [...] OF Injections L4-L5 by Dr Knox in [place] Family History: FAMILY HISTORY Problem Relation Age [...] 2/4 Coordination: finger-to- nose-finger intact bilaterally and opoh-ii-zrip intact bilaterally. Gait: Patient's gait is normal Romberg: Negative DATA REVIEWED Actual films/image/tracing reviewed and summarized as follows: MRI brain Old records reviewed and summarized as follows: Neurology, primary care Assessment/Plan Assessment AND Plan: Anastasia Simpson is a [...] which included preparing to see the patient, cjmm-vy-vlrz patient care, completing clinical documentation, obtaining and/or reviewing separately obtained history, performing a medically appropriate examination, counseling and educating the patient/family/caregiver, and ordering medications, tests, or procedures. Robyn Harris PA-C [facility] Neurology This document has been created with the use of voice recognition technology. It may contain inaccuracies: (e.g. misspellings, inaccurate syntax or word sense) that have escaped review. Robyn Harris PA-C 07/12/2024 7:39 AM Addendum Preventative: Emgality injection (first dose is two [...] Feverfew: Feverfew is a common garden herb bois forte to [place] and popular in [place] as a treatment for disorders typically controlled [...] These include: Hotdogs,salami,Lox,sausage, mortadellas,smoked salmon, pepperoni, Pickled rioc Pods of broad bunn (Nepali beans, Botswanan pea pods, Stateless (juaquin) beans, guajardo and navy beans Ripe avocado, ripe banana Yeast extracts or active yeast preparations such as Mohamud's or Talia's (commercial bakes goods are permitted) Tomato based foods, pizza (lasagna, etc.) MSG (monosodium glutamate) is disguised as many things; look for these common aliases: Monopotassium glutamate Autolysed yeast Hydrolysed protein Sodium caseinate ?flavorings? ?all natural preservatives Nutrasweet Avoid all other foods [...] much light. These can be obtained at iDubba or [employer] Foods: see list above. 2. Limit use of acute treatments (odtx-syd-pekylgs medications, triptans, etc.) to no more than [...] and quiet environment. Relax and reduce stress. Frcevcz4Vmnlc is a free socorro that can instruct you on some simple relaxtion and breathing techniques. Http://Sense Platform.Tomfoolery is a free website that provides teaching videos on relaxation. Also, there are many apps that can be downloaded for ?mindful? relaxation. An socorro called YOGA NIDRA will [...] and will be handling your phone calls, AdAdaptedt Messages and inquiries, if any. Unless explicitly told otherwise at the time of your office visit, your study results and ensuing treatment plans will be released via pfwaterworks and discussed during your follow-up appointment. MyChart: Please ask the schedulers to give you an activation code. The main way of communication is by AdAdaptedt rather than phone lines, so if you have not signed up, please do so. AdAdaptedt is also the way that you can review your labs and testing. We are not able to contact everyone to tell them results are normal. If you do not hear back from us regarding testing you have had, it should be considered normal or within normal range. If you have any questions about the results, you are free to message us. AdAdaptedt is meant for simple questions regarding medications, possible side effects, or other simple straight forward questions in limited sentences, rather than multiple paragraphs of discussion. pfwaterworks is not meant for, or efficient for [...] do not comment on most testing on [facility] in a message or commentary unless there [...] request to assist you with this process. Referring Provider: JACEK SCRUGGS [[id number]] Allergies As of Date: 07/12/2024 Noted Allergy [...] PA-C - Fully Assessed Reason for Visit: New Patient Evaluation [154] Primary Visit Diagnosis:Intractable chronic migraine with aura and without status migrainosus [G43.E19] Order(s):CONSULT TO NEUROLOGY [9019] Order #: [id number]: 1 galcanezumab-gnln 120 mg/mL subcutaneous syringe (EMGALITY)Inject 2 mL subcutaneously once every month. Do not shake.Disp: 2 mLRfl: 0 galcanezumab-gnln 120 mg/mL subcutaneous syringe (EMGALITY)Inject 1 mL subcutaneously once every month. Do not shake.Disp: 1 mLRfl: 5 Prescriptions as of 07/12/2024 - galcanezumab-gnln 120 mg/mL subcutaneous syringe (EMGALITY) Inject 2 mL subcutaneously once every month. Do not shake. - galcanezumab-gnln 120 mg/mL subcutaneous syringe (EMGALITY) Inject 1 mL subcutaneously once every month. Do not shake. - SUMAtriptan (IMITREX) 100 mg tablet Take 1 tablet (100 mg) by mouth as needed. - HYDROcodone-acetaminophen (NORCO) 5-325 mg per tablet Take [...] Acute left-sided thoracic back pain [M54.6] 08/24/2023 Other instructions from your clinician: Preventative: Emgality injection (first dose is two [...] Feverfew: Feverfew is a common garden herb bois forte to [place] and popular in [facility] as a treatment for disorders typically controlled [...] pepperoni, Pickled rico Pods of broad bunn (Nepali beans, Botswanan pea pods, Stateless (juaquin) beans, guajardo and navy beans Ripe avocado, ripe banana Yeast extracts or active yeast preparations such as Mohamud's or Talia's (commercial bakes goods are permitted) Tomato based foods, pizza (lasagna, etc.) MSG (monosodium glutamate) is disguised as many things; look for these common aliases: Monopotassium glutamate Autolysed yeast Hydrolysed protein Sodium caseinate ?flavorings? ?all natural preservatives Nutrasweet Avoid all other foods [...] much light. These can be obtained at [employer]Dub[employer] or [employer] Foods: see list above. 2. Limit use of acute treatments (hyir-ggw-lmksnag medications, triptans, etc.) to no more than [...] and quiet environment. Relax and reduce stress. Bqyjdfg5Ngcza is a free socorro that can instruct you on some simple relaxtion and breathing techniques. Http://Tripbirds is a free website that provides teaching videos on relaxation. Also, there are many apps that can be downloaded for ?mindful? relaxation. An socorro called YOGA NIDRA will [...] and will be handling your phone calls, AdAdaptedt Messages and inquiries, if any. Unless explicitly told otherwise at the time of your office visit, your study results and ensuing treatment plans will be released via pfwaterworks and discussed during your follow-up appointment. MyChart: Please ask the schedulers to give you an activation code. The main way of communication is by pfwaterworks rather than phone lines, so if you have not signed up, please do so. AdAdaptedt is also the way that you can review your labs and testing. We are not able to contact everyone to tell them results are normal. If you do not hear back from us regarding testing you have had, it should be considered normal or within normal range. If you have any questions about the results, you are free to message us. pfwaterworks is meant for simple questions regarding medications, possible side effects, or other simple straight forward questions in limited sentences, rather than multiple paragraphs of discussion. pfwaterworks is not meant for, or efficient for [...] do not comment on most testing on [facility] in a message or commentary unless there [...] request to assist you with this process. Prescriptions ordered this encounter Disp Refills Start End GALCANEZUMAB-GNLM 120 MG/ML SUBCUTAN* 2 mL 0 07/12/2024 Route: SUBCUTANEOUS Sig: Inject 2 mL subcutaneously once every month. Do not shake. GALCANEZUMAB-GNLM 120 MG/ML SUBCUTAN* 1 mL 5 07/12/2024 Route: SUBCUTANEOUS Sig: Inject 1 mL subcutaneously once every month. Do not shake. Disposition: Return in about 3 months (around 10/12/2024). Follow-up and Disposition History for Encounter Date Provider Department Center 07/12/2024 [id number] HARRIS [facility] Encounter Status:Closed by ROBYN HARRIS on 07/12/24 PROGRESS Observed: 07/12/2024 6:58 AM Status: COMPLETED [facility]: [id number] Author: YOKO CHATTERJEE LPN Service: ? Author Type: LICENSED NURSE Type: Progress Notes Filed: 07/12/2024 07:18 Note Text: 07/10/2024 Sleep Apnea Probability Snores loudly: No Tired, fatigued or sleepy in daytime: Yes Stops breathing or choking/gasping during sleep: No High blood pressure: Yes Sleep Apnea Probability Score: 13 (Sleep study not recommended) SCARLETT Observed: 07/12/2024 12:00 AM Status: COMPLETED Source: [facility] Telephone ([employer]) ANASTASIA SIMPSON ([id number]) 1975 F Date Time Provider Department 07/12/24 JACEK SCRUGGS [facility] During your visit today, we recorded [...] (100 mg) by mouth as needed. - HYDROcodone-acetaminophen (NORCO) 5-325 mg per tablet Take [...] back pain [M54.6] 08/24/2023 Encounter Status:Closed by FLORENCE HOPPER on 07/12/24 BOONEN Observed: 07/06/2024 12:00 AM Status: COMPLETED Source: [facility] ANA[facility] SIMPS[facility] ([id number]) 1975 F Date Time Provider Department 07/06/24 [facility] During your visit today, we recorded the following information about you: Angelique Marlow 07/06/2024 3:21 PM Signed Anastasia is calling regarding the Rx Hydrocodone. She is asking if there is any way of filling this sooner than Thursday as she recently fell, and needed a couple more, more than usual. Please call and advise either way. 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 - HYDROcodone-acetaminophen (NORCO) 5-325 mg per tablet Take [...] back pain [M54.6] 08/24/2023 Encounter Status:Closed by MAEE PAZ on 07/07/24 XR TIBIA FIBULA 2V AP/LAT RT Observed: 1 4:05 PM Status: C Source: [facility] * * *Final Report* * * * [...] seen. The knee and ankle appear intact. Pile Driving Superintendent: NAGI Transcribe Date/Time: Jul 12 2024 9:11A Dictated by : ELLEN HIRSCH MD This examination was interpreted and the report reviewed and electronically signed by: ELLEN HIRSCH MD on Jul 12 2024 8:59AM EST This document has been addended by: ELLEN HIRSCH MD on Jul 12 2024 9:12AM EST [id number] PROGRESS Observed: 07/04/2024 4:00 PM Status: COMPLETED Source: [facility] HNO ID: [id number] Author: ANNIKA ASHBY RT(R) Service: Radiology Author Type: Technologist Type: [...] PATIENT PRESENTS WITH AN IMPLANTABLE OR ATTACHED LEMON GROWER: No RADIOLOGY DEPARTMENT: General X-ray: Exam(s) Completed: Lower Extremity X-Ray(s): Tibia Fibula, Right PERIPHERAL IV DATA: Not applicable SIGNED BY: RT Meliton(R) July 04, 2024 3:56 PM CNOV Observed: 07/04/2024 3:40 PM Status: COMPLETED Source: [facility] ANASTAS[facility] SIMPS[facility] ([id number]) 1975 F Date Time Provider Department 07/04/24 3:40 PM JACEK SCRUGGS [facility] During your visit today, we recorded the following information about you: Pulse Blood pressure Weight Height 83/minute 116/78 64.2 kg 1.676 m Jacek Scruggs MD 07/04/2024 3:49 PM Signed Patient presents with: Follow Up HPI: Patient presents today for office visit for follow up. Mentions 3 weeks ago she fell outside in [facility]'s parking lot. Landed on buttocks and more [...] OF Injections L4-L5 by Dr Knox in [place] PAST SURGICAL HISTORY Procedure Laterality Date COLONOSCOPY [...] LMP 08/20/2023 (Approximate) SpO2 99% BMI 22.85 kg/m? Last 4 Encounter Wt Readings: Date: [...] refill. Musculoskeletal: no joint swelling. No bruising. plywood scarfer tender at the proximal tibia. No deformity. [...] ICD10: F41.9 - stable. Jacek Scruggs MD Referring Provider: SELF [200] Allergies As of Date: 07/04/2024 Noted Allergy Reaction CELESTONE (BETAMETHASONE SODIUM P*12/19/2010 [...] MA - Fully Assessed Reason for Visit: Follow Up [171] Primary Visit Diagnosis:Pain of right lower extremity [M79.604] Other Visit Diagnoses:Other migraine without status migrainosus, not intractable [G43.809] DDD (degenerative disc disease), lumbar [M51.369] Postlaminectomy syndrome [M96.1] Anxiety [F41.9] Degeneration of intervertebral disc of lumbar region, unspecified whether pain present [M51.369] Order(s):SUMAtriptan (IMITREX) 100 mg tabletTake 1 tablet (100 mg) by mouth as needed.Disp: 9 tabletRfl: 3 HYDROcodone-acetaminophen (NORCO) 5-325 mg per tabletTake 1 tablet by mouth every 6 hours as needed for up to 31 days.Disp: 60 tabletRfl: 0 XR TIBIA FIBULA 2V AP/LAT RIGHT [[id number]] Order #: [id number] FUTURE Prescriptions as of 07/04/2024 - SUMAtriptan (IMITREX) 100 mg tablet Take 1 tablet (100 mg) by mouth as needed. - HYDROcodone-acetaminophen (NORCO) 5-325 mg per tablet Take [...] for constipation Problem List As Of Date 07/04/2024 Noted Resolved Headache [R51] 10/05/2007 11/07/2009 Postlaminectomy [...] Acute left-sided thoracic back pain [M54.6] 08/24/2023 Prescriptions ordered this encounter Disp Refills Start End SUMATRIPTAN 100 MG TABLET 9 ta* 3 07/04/2024 Route: ORAL Sig: Take 1 tablet (100 mg) by mouth as needed. HYDROCODONE 5 MG-ACETAMINOPHEN 325 M* 60 t* 0 07/04/2024 08/04/2024 Route: ORAL Sig: Take 1 tablet by mouth every 6 hours as needed for up to 31 days. Medications Discontinued During This Encounter Prescriptions - SUMAtriptan (IMITREX) 100 mg tablet (Discontinued) Take 1 tablet (100 mg) by mouth as needed. - HYDROcodone-acetaminophen (NORCO) 5-325 mg per tablet (Discontinued) Take 1 tablet by mouth every 6 hours as needed for up to 31 days. Disposition: Return in about 2 months (around 09/03/2024). Follow-up and Disposition History for Encounter Date Provider Department Center 07/04/2024 [id number] SCRUGGS [facility] Encounter Status:Closed by JACEK SCRUGGS on 07/04/24 PROGRESS Observed: 07/04/2024 3:23 PM Status: COMPLETED [facility]: [id number] Author: JACEK SCRUGGS MD Service: ? Author Type: Physician Type: Progress Notes Filed: 07/04/2024 15:49 Note Text: Patient presents with: Follow Up HPI: Patient presents today for office visit for follow up. Mentions 3 weeks ago she fell outside in [facility]'s parking lot. Landed on buttocks and more [...] OF Injections L4-L5 by Dr Knox in [place] PAST SURGICAL HISTORY Procedure Laterality Date COLONOSCOPY [...] LMP 08/20/2023 (Approximate) SpO2 99% BMI 22.85 kg/m? Last 4 Encounter Wt Readings: Date: [...] refill. Musculoskeletal: no joint swelling. No bruising. plywood scarfer tender at the proximal tibia. No deformity. [...] ICD10: F41.9 - stable. Jacek Scruggs MD ALLERGIES DATE TYPE / CODE NAME / CODE REACTION SEVERITY SOURCE 09/02/2024 DRUG INGREDI/648999 003(SNOMED CT) GALCANEZUMAB-GNLM HIVES [facility] 02/09/2014 DRUG INGREDI/453887 003(SNOMED CT) GABAPENTIN OTHER: SEE C [facility] 12/19/2010 DRUG INGREDI/283824 003(SNOMED CT) BETAMETHASONE SODIUM PHOSPHATE OTHER: SEE C [facility] 07/01/2004 DRUG INGREDI/466775 003(SNOMED CT) CODEINE [facility] 07/01/2004 Drug Class/84055629 3(SNOMED CT) SULFA (SULFONAMIDE ANTIBIOTICS) [facility] ENCOUNTERS ADMIT/DISCHARGE ACCOUNT NUMBER ADMITTING ENCOUNTER CLASS LOC ATION SOURCE 06/17/2025/ 5 [id number] [facility] EDBed: [address] [place] [address] 05/10/2025/ 5 [id number] Ambulatory [facility] HospitalBuild ing:[address] 03/20/2025/ 5 [id number] Ambulatory [facility] ing:[facility] 03/03/2025/ 5 [id number] [facility] ORBed: [address] [place] [address] 03/03/2025 [id number] [facility] [place] [facility] 01/25/2025/ 5 [id number] Ambulatory [facility] HospitalBuild ing:[facility] 01/23/2025/ 5 [id number] Ambulatory [facility] HospitalBuild ing:[facility] 01/16/2025/ 5 [id number] Ambulatory [facility] HospitalBuild ing:[facility] 12/15/2024/ 5 [id number] Ambulatory [facility] HospitalBuild ing:[facility] 11/14/2024/ 5 [id number] Ambulatory [facility] HospitalBuild ing:[facility] 10/21/2024/ 5 [id number] [facility]/05/[facility]/ 5 [id number] Ambulatory [facility] HospitalBuild ing:WON2 [facility] 09/19/2024/ 4 [id number] Ambulatory [facility] HospitalBuild ing:WOFM [facility] 09/02/2024/ 4 [id number] Ambulatory [facility] 08/30/2024/ 4 [id number] Ambulatory [facility] HospitalBuild ing:WODM [facility] 08/03/2024/ 4 [id number] Ambulatory [facility] HospitalBuild ing:WMOB [facility] 07/28/2024/ 4 [id number] Ambulatory [facility] HospitalBuild ing:WORG [facility] 07/28/2024/ 4 [id number] Ambulatory [facility] HospitalBuild ing:WOUC [facility] 07/12/2024/ 4 [id number] Ambulatory [facility] HospitalBuild ing:WON2 [facility] 07/04/2024/ 4 [id number] Ambulatory [facility] HospitalBuild ing:WORG [facility] 07/04/2024/ 4 [id number] Ambulatory [facility] HospitalBuild ing:WOFM [facility] PAYERS ENCOUNTER GUARANTOR PAYER SUBSCRIBER SOURCE 06/17/2025 Primary Insuranc e:BLUE CARD PPO OOSPolicy Number: [id number] Date:8130-01-55Gctk Name:Gay ALBRIGHT: [id number] [place] [address] [facility] 05/10/2025 Primary Insuranc e:BLUE CARD PPO OOSPolicy Number: [id number] Date:2403-93-68Yhvg Name:Gay ALBRIGHT: [id number] [place] [address] [facility] 03/20/2025 Primary Insuranc e:BLUE CARD PPO OOSPolicy Number: [id number] Date:[id number] Name:Gay SIMPSONDOB: [id number] [place] [address] [facility] 03/03/2025 Primary Insuranc e:BLUE CARD PPO OOSPolicy Number: [id number] Date:[id number] Name:Gay SIMPSONB: [id number] [place], [place] [id number] [place] [address] 03/03/2025 Primary Insuranc e:BLUE CARD PPO OOSPolicy Number: [id number] Date:1130-91-96Tztr Name:Gay SIMPSONB: [id number] [place], [place] [id number] [place] [address] 01/25/2025 Primary Insuranc e:ANTHEM BLUEHPNPolicy Number: [id number] Date:0004-54-62Asju Name:Gay SIMPSONB: [id number] [place] [address] [facility] 01/23/2025 Primary Insuranc e:ANTHEM BLUEHPNPolicy Number: [id number] Date:3299-88-61Sqhs Name:Gay SIMPSONB: [id number] [place] [address] [facility] 01/16/2025 Primary Insuranc e:ANTHEM BLUEHPNPolicy Number: [id number] Date:5328-01-32Xfim Name:Gay SIMPSONB: [id number] [place] [address] [facility] 12/15/2024 Primary Insuranc e:BLUE CARD PPO OOSPolicy Number: [id number] Date:0954-97-05Byta Name:Gay SIMPSONDOB: [id number] [place] [address] [facility] 11/14/2024 Primary Insuranc e:BLUE CARD PPO OOSPolicy Number: [id number] Date:8817-42-98Msif Name:Gay SIMPSONDOB: [id number] [place] [address] [facility] 10/21/2024 Primary Insuranc e:BLUE CARD PPO OOSPolicy Number: [id number] Date:4743-36-31Zkxm Name:Gay SIMPSONB: [id number] [place] [address] [facility] 10/05/2024 Primary Insuranc e:BLUE CARD PPO OOSPolicy Number: [id number] Date:1030-62-11Xksc Name:Gay SIMPSONB: [id number] [place] [address] [facility] 09/19/2024 Primary Insuranc e:BLUE CARD PPO OOSPolicy Number: [id number] Date:7528-70-90Ugne Name:Gay SIMPSONDOB: [id number] [place] [address] [facility] 09/02/2024 Primary Insuranc e:BLUE CARD PPO OOSPolicy Number: [id number] Date:3877-18-67Qegs Name:Gay SIMPSONDOB: [id number] [place] [address] [facility] 08/30/2024 Primary Insuranc e:BLUE CARD PPO OOSPolicy Number: [id number] Date:3046-35-63Caxb Name:Gay SIMPSONB: [id number] [place] [address] [facility] 08/03/2024 Primary Insuranc e:BLUE CARD PPO OOSPolicy Number: [id number] Date:8404-68-04Ltih Name:Gay SIMPSONB: [id number] [place] [address] [facility] 07/28/2024 Primary Insuranc e:BLUE CARD PPO OOSPolicy Number: [id number] Date:7193-54-47Zngv Name:Gay SIMPSONB: [id number] [place] [address] [facility] 07/28/2024 Primary Insuranc e:BLUE CARD PPO OOSPolicy Number: [id number] Date:3029-66-40Lqoh Name:Gay SIMPSONB: [id number] [place] [address] [facility] 07/12/2024 Primary Insuranc e:BLUE CARD PPO OOSPolicy Number: [id number] Date:0711-12-71Uptm Name:Gay Rashid VALEWAGNERB: [id number] [place] [address] [facility] 07/04/2024 Primary Insuranc e:BLUE CARD PPO OOSPolicy Number: [id number] Date:9018-04-05Loqp Name:Gay Rashid VALEWAGNERB: [id number] [place] [address] [facility] 07/04/2024 Primary Insuranc e:BLUE CARD PPO OOSPolicy Number: [id number] Date:9772-11-76Mcup Name:Gay Rashid VALEWAGNERB: [id number] [place] [address] [facility]
[2025-06-18 18:30] VITALS: BP 145/102; PULSE 91; RESP 16; TEMP 36.1; O2SAT 100; BMI 20.7
--- NOTE | 2025-06-18 19:29 | EX.ED.VIS.HA ---
HPI History of Present Illness Chief Complaint: Headache Narrative Narrative: 49-year-old female past medical history of migraine headaches sees neurology at [facility] presents with headache that she rates a 10 out of 10. She relates history that she recently changed medications from Imitrex to Relpax. She felt initially that Imitrex might not be working as well for her headaches. She was changed to Relpax. Recently she was seen by neurology and started on a 10-day burst of Depakote for which she was not allowed to take the Relpax because it would counteract what Depakote was trying to do for headaches. She states she also receives Botox injections which helps her neck. Of note, she states she was also seen in the emergency department approximately 1 month ago/earlier this month. She had CT imaging at that time. Over the last few days, she states her headache was very intense, and she started experiencing nausea and vomiting. She was seen at [facility] emergency department yesterday where she states she had laboratory work performed which was normal, and she received 2 doses of Zofran, IV fluids, and Reglan to help with her headache. She felt improved, stated that she was not dehydrated, but awoke today with a 10 out of 10 headache. It is more towards the top of her head but typical of her intractable migraine. She states the nausea and vomiting has resolved. No fevers or chills, no exacerbating or alleviating factors. She does have mild photophobia. She presents to the emergency department, frustrated, seeking relief from her migraine. [facility] Medical History UTI (urinary tract infection) Strain of right knee Contusion of right knee Contusion of left knee Strain of right hip Lumbar radiculopathy Lumbar strain Migraines Hypertension Diarrhea Epigastric pain Age-related facial wrinkles Brow ptosis, bilateral Forehead wrinkles Glabellar wrinkles Skin cancer History of blood transfusion Back problem Acute cholecystitis Home Medications ?Medication ?Instructions ?Recorded ?Last Taken ?Type sumatriptan succinate 50 mg tablet 50 mg PO .PRN 04/19/19 Unknown History (Imitrex) propranolol 60 mg tablet 60 mg PO HS 02/23/20 Unknown History escitalopram oxalate 5 mg tablet 5 mg PO DAILY 09/24/22 Unknown History etodolac 500 mg tablet 500 mg PO BID #60 tabs 02/06/23 Unknown Rx losartan 50 mg tablet 50 mg PO 10/27/22 Unknown History Allergy/AdvReac Type Severity Reaction Status Date / Time codeine Allergy Other Verified 06/18/25 18:31 Sulfa (Sulfonamide Allergy Other Verified 06/18/25 18:31 Antibiotics) Family History Other Arthritis Breast cancer Diabetes Heart disease High cholesterol Hypertension Surgical History S/P Botox injection Previous back surgery History of laparoscopic cholecystectomy (~08/2018) Social History Smoking Status: Never smoker alcohol intake: never substance use type: does not use additional social history: DOES NOT USE ASPIRIN DOES USE IBUPROFEN NEEDED ROS ROS ED ROS Narrative Review of systems is positive for migraine headache at the top of her head. No neck pain. No fevers or chills. Mild photophobia. Similar to previous migraines. She did experience nausea and vomiting that was also intense over the last few days but after being seen in the emergency department at [facility] yesterday, this is improved significantly. She had mild relief of her headache yesterday as well, but awoke today with a 10 out of 10 pain. EXAM Physical Exam Narrative Exam Narrative: Afebrile. Vital signs noted. Nontoxic-appearing. Cardiovascular examination reveals a regular rate and rhythm. Lungs are clear to auscultation bilaterally. The abdomen is soft and nontender without guarding or rebound. Positive bowel sounds. Neurological examination is nonfocal, nonlateralizing. Moves all extremities. Had been tearful prior to exam. Const Vital Signs: 06/18/25 18:30 Temperature 96.9 F L Temperature Source Temporal Pulse Rate 91 Respiratory Rate 16 Blood Pressure 145/102 H Blood Pressure Mean 116 Pulse Ox 100 Oxygen Delivery Method Room Air MDM MDM MDM Narrative Medical decision making narrative: The differential diagnosis includes but not limited to status migrainous versus dehydration versus intravascular volume depletion. I reviewed her prior ED visit. She had CT imaging that was negative at that time. I do not feel that she needs a CTA nor do I feel that she needs a lumbar puncture as I have low suspicion for meningitis or encephalopathy. Her headaches are longstanding, and she states that she has only been pain-free for 14 days in the past year. I had a lengthy discussion with the patient with her mother present. She does not want IV fluids. I do not feel that she requires laboratory testing, she states that she had it performed yesterday and it was normal. She states that she started to get the jittery feeling with the use of Reglan previously, and she cannot take Benadryl because she has a reaction to that and it intensifies her headache. It was decided that she would like a subcutaneous injection of 6 mg of Imitrex and reevaluation. Attempt will be made to lessen her headache, and not necessary as alleviated as it has been ongoing for weeks. It has a fluctuating/waxing and waning type of pain to it. She did state that prior to her discharge on her last ED visit here she received a steroid shot. She also received steroids yesterday. Upon repeat examination at approximately 1955, she is feeling improved. She feels well enough to go home. I offered writing a prescription/filling her prescription for oral Imitrex, but she states she usually only takes 1, and it last 20 hours. At this point in time, I do feel she can be discharged to follow-up with her neurologist. She is to call the office first thing in the morning tomorrow. She feels improved. Return instructions reviewed. Disposition is discharged home in stable condition. History & Record Review Discussion w/independent historian: Patient Additional record(s) reviewed:: Prior ED visit (Had previous CT at last visit.) Discharge Plan Triage Chief Complaint: Headache ED Provider: Abel Franco Dx/Rx/DC Orders Clinical Impression: Migraine headache, Intractable migraine Instructions: ED, Migraine (Classical) Prescriptions: No Action sumatriptan succinate [Imitrex] 50 mg tablet 50 mg PO .PRN propranolol 60 mg tablet 60 mg PO HS escitalopram oxalate 5 mg tablet 5 mg PO DAILY Patient Comments: TAKE 1 TABLET BY MOUTH EVERY DAY losartan 50 mg tablet 50 mg PO Patient Comments: TAKE 1 TABLET BY MOUTH EVERY DAY etodolac 500 mg tablet 500 mg PO BID Qty: 60 0RF Primary Care Provider: Jacek Lubin Referrals: Jacek Lubin MD [Primary Care Provider, Medical] Activity Restrictions/Additional Instructions: Follow-up with your neurologist tomorrow. Continue your previous medications and routines. Return with new or worsening symptoms. Print Language: Costa Rican Disposition Disposition: Home, Self Care
[2025-06-18 20:07] VITALS: BP 146/67; PULSE 75; RESP 16; TEMP 36.1; O2SAT 100
== END 2025-06-18 20:10 | disposition home or self-care (01) ==
PROVIDERS: Emergency Provider Emergency Medicine; PCP Family Medicine; Visit Provider Emergency Medicine
DX: G43.919 Migraine, unspecified, intractable, without status migrainosus (principal)
CPT/HCPCS: 99282; J3030

== ENCOUNTER 2025-06-19 05:15 | Emergency (ER) | payer BC, SELFPAY ==
--- OUTSIDE RECORDS SUMMARY | 2025-06-17 13:14 | XMS RPT_ITS ---
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 06/17/2025 Active Dehydration / E86.0(ICD-10) GABRIEL COLON Active [facility] 06/17/2025 Active Medication side effect / T88.7XXA(ICD-10) GABRIEL COLON Active [facility] 09/16/2021 Active Postlaminectomy syndrome / M96.1(ICD-10) JACEK SCRUGGS Active [facility] 03/20/2025 Active Gastro-esophagea l reflux disease without esophagitis / K21.9(ICD-10) JACEK SCRUGGS Active [facility] 03/03/2025 Active Diplopia / H53.2(ICD-10) RAMO REECE Active [facility] 03/03/2025 Active Complication of anesthesia, initial encounter / T88.59XA(ICD-10) ADRIAN REECE Active [facility] 03/03/2025 Active Screen for colon cancer / Z12.11(ICD-10) MINI MCKEON GYPSY [facility] 06/01/2023 Active History of colon ic polyps / Z86.0100(ICD-10) GYPSY AGRAWAL [facility] 03/03/2025 Active Encounter for sc reening colonoscopy / Z12.11(ICD-10) GYPSY AGRAWAL [facility] 07/17/2017 Active Intractable client service professional 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 / G43.E19(ICD-10) MALOU BAEZ Active [facility] 08/03/2024 Active Primary hyperten claudette / I10(ICD-10) JACEK SCRUGGS Active [facility] 11/13/2022 Active Anxiety / F41.9(ICD-10) JACEK SCRUGGS Active [facility] 11/29/2012 Active Basal cell carci noma (BCC), unspecified site / C44.91(ICD-10) JACEK SCRUGGS Active [facility] 01/16/2025 Active Adjustment disor romaine with anxious mood / F43.22(ICD-10) JACEK SCRUGGS [facility] 08/24/2023 Active Acute left-sided thoracic back pain / M54.6(ICD-10) JACEK SCRUGGS Active [facility] 08/30/2024 Active Screening breast examination / Z12.39(ICD-10) NA Active [facility] 07/28/2024 Active Pain / R52(ICD-10) NA Active [facility] 07/04/2024 Active Pain of right lo wer extremity / M79.604(ICD-10) JACEK SCRUGGS [facility] 07/04/2024 Active DDD (degenerativ e disc disease), lumbar / M51.369(ICD-10) JACEK SCRUGGS [facility] 07/04/2024 Active Degeneration of intervertebral disc of lumbar region, unspecified whether pain present / M51.369(ICD-10) JACEK SCRUGGS [facility] PROCEDURES No Procedure Records Found RESULTS ED NOTE Observed: 06/17/2025 7:06 PM Status: COMPLETED Source: [facility] HNO ID: [id number] Author: KEYANA MCCORMACK MD Service: Emergency Medicine [...] Observed: 06/17/2025 6:22 PM Status: COMPLETED Source: [facility] HNO ID: [id number] Author: NATALIA COHEN RN Service: ? Author Type: Registered Nurse Type: ED Notes Filed: 06/17/2025 18:25 Note Text: Reglan infusion stopped, pt reports it is making me feel jittery. ED NOTE Observed: 06/17/2025 5:09 PM Status: COMPLETED Source: [facility] HNO ID: [id number] Author: NATALIA COHEN RN Service: ? Author [...] Observed: 06/17/2025 4:39 PM Status: COMPLETED Source: [facility] HNO ID: [id number] Author: GABRIEL COLON MD Service: Emergency Medicine [...] previously taken Zofran, however she states the post hole digger recently changed and she cannot tolerate this [...] OF Injections L4-L5 by Dr Knox in [place] Primary hypertension PAST SURGICAL HISTORY Procedure Laterality [...] Negative Ketones, Urine 3+ (*) Negative Specific [place], Ur >=1.030 (*) 1.005 - 1.030 Protein, [...] Observed: 06/17/2025 4:03 PM Status: COMPLETED Source: [facility] HNO ID: [id number] Author: NATALIA COHEN RN Service: ? Author Type: Registered Nurse Type: ED Notes Filed: 06/17/2025 16:30 Note Text: Pt report headache feels about the same, my migraines are relentless. Pt reports some improvement when asked if nausea has improved, it is always better when I am laying down. URINALYSIS COMPLETE PNL UR Collected: 06/17/2025 2:57 PM Status: F Source: [facility] Order Comment: Specimen Type : URINE SPECIMEN Ordering Facility: [facility] Address: [address] [place] [address] TYPE CODE TESTS RESULT OUT OF RANGE REFERENCE UNITS LAB 5778-6(LOINC) Color Ur Dark Yellow Abnormal Yellow LAB 17031-6(LOINC) Clarity Spec Cloudy Abnormal Clear LAB 5792-7(LOINC) [...] HPF 6-10 /HPF Abnormal 0-5 /HPF LAB 44869-6(LOINC) RBC #/area UrnS HPF 0-3 /HPF 0-3 /HPF LAB 5769-5(LOINC) Bacteria #/area UrnS HPF Many Abnormal None Seen /HPF LAB 5787-7(LOINC) Epi Cells #/area UrnS HPF Few /HPF LAB 5796-8(LOINC) Hyaline Casts #/area UrnS LPF 4-10 /LPF Abnormal 0 /LPF Performed By: #### 72395-8 # ### [facility] CLIA [id number] [address] [place] [address] [place] B-HCG SERPL-ACNC Collected: 06/17/2025 2:56 PM Statu s: F Source: [facility] Order Comment: Specimen Type : BLOOD SPECIMEN Ordering Facility: [facility] Address: [address] [place] [address] TYPE CODE TESTS RESULT OUT OF RANGE REFERENCE UNITS LAB 31074-2(LOINC) B-HCG SerPl-aCnc <0.6 <5.0 mIU/mL Result Comment: Negative Performed By: #### 24403-4 # ### [facility] CLIA [id number] [address] [place] [address] CBC PNL BLD AUTO Collected: 06/17/2025 2:56 PM Statu s: F Source: [facility] Order Comment: Specimen Type : BLOOD SPECIMEN Ordering Facility: [facility] Address: [address] [place] [address] TYPE CODE TESTS RESULT OUT OF RANGE REFERENCE UNITS LAB 6690-2(INC) WBC # Bld Auto 8.75 3.70-11.00 k/uL LAB 789-8(LOINC) RBC # Bld Auto 5.11 3.90-5.20 m/ uL LAB 718-7(INC) Hgb Bld-mCnc 14.9 11.5-15.5 g/dL LAB 4544-3(INC) Hct VFr Bld Auto 46.1 High 36.0-46.0 % LAB 787-2(LOINC) MCV RBC Auto 90.2 80.0-100.0 fL LAB 785-6(INC) MCH RBC Qn Auto 29.2 26.0-34.0 pg LAB 786-4(LOINC) MCHC RBC Auto-mCnc 32.3 30.5-36.0 g/dL LAB 96631-1(LOINC) RDW RBC-Rto 12.7 11.5-15.0 % LAB 777-3(LOINC) Platelet # Bld Auto 279 150-400 k/uL LAB 26738-9([facility]) PMV Bld Auto 10.4 9.0-12.7 fL Performed By: #### 02341-2 # ### [facility] CLIA [id number] [address] [place] [address] BAS METAB 2000 PNL SERPL Collected: 2:56 PM Status: F Source: [facility] Order Comment: Specimen Type : BLOOD SPECIMEN Ordering Facility: [facility] Address: [address] [place] [address] TYPE CODE TESTS RESULT OUT OF RANGE REFERENCE UNITS LAB 2345-7(LOINC) Glucose SerPl-mCnc 84 74-99 mg/dL Result Comment: The [place] Diabetes Association (ADA) provides guidance for cutoff [...] Standards of Medical Care in Diabetes 2016, [place] [employer]. Diabetes Care. 2016.39(Suppl 1). LAB 3094-0(LOINC) BUN SerPl-mCnc 11 7-21 mg/dL LAB 2160-0(LOINC) Creat SerPl-mCnc 0.69 0.58-0.96 mg/dL LAB 2951-2(LOINC) Sodium SerPl-sCnc 139 136-144 mmol/L LAB 2823-3(LOINC) Potassium SerPl-sCnc 4.2 3.7-5.1 mmol/L LAB 2075-0(LOINC) Chloride SerPl-sCnc 102 98-107 mmol/L LAB 2028-9(LOINC) CO2 SerPl-sCnc 22 22-30 mmol/L LAB 08643-4(LOINC) Anion Gap SerPl-sCnc 15 8-15 mmol/L LAB 67532-3(LOINC) Calcium SerPl-mCnc 9.6 8.5-10.2 mg/dL LAB 73387-7(LOINC) eGFRcr SerPlBld CKD-EPI 2020 107 >=60 mL/min/1. [...] accurately reflect actual GFR. Performed By: #### 17668-6, 75950-3 #### [facility] CLIA [id number] [address] [place] [address] [facility] MAGNESIUM SERPL-MCNC Collected: 06/17/2025 2:56 PM S cecilyus: F Source: [facility] Order Comment: Specimen Type : BLOOD SPECIMEN Ordering Facility: [facility] Address: [address] [place] [address] TYPE CODE TESTS RESULT OUT OF RANGE REFERENCE UNITS LAB 63594-0(LOINC) Magnesium SerPl-mCnc 2.2 1.7-2.3 mg/dL Performed By: #### 89870-9, 17505-2 #### [facility] CLIA [id number] [address] [place] [address] [facility] ED NOTE Observed: 06/17/2025 1:24 PM Status: COMPLETED Source: [facility] HNO ID: [id number] Author: NATALIA COHEN RN Service: ? Author [...] Observed: 06/15/2025 12:00 AM Status: COMPLETED Source: [facility] Telephone (HEATHER) ANASTASIA SIMPSON ([id number]) 1975 F Date Time Provider Department 06/15/25 [...] Harris and requested the Imitrex from Dr. Scruggs, why didn't she mention anything about feeling [...] migraines return in 24 hours. Pt uses [facility] pharmacy and states she needs medication called in for both nausea and for migraines since she can no longer take the Relpax and the Imitrex script has been cancelled. Pt states [facility] has a different post hole digger for Zofran and with this post hole digger, the Zofran makes her so dizzy that [...] PA-C 06/15/2025 4:10 PM Signed [facility]. Take two [...] Encounter Status:Closed by JAYLEN VIDAL on 06/15/25 BONOEN Observed: 06/09/2025 12:00 AM Status: COMPLETED Source: [facility] ANASTASIA SIM[facility] ([id number]) 1975 F Date Time Provider Department 06/09/25 JACEK SCRUGGS [facility] During your visit today, we recorded [...] Route: ORAL Pharmacy has been updated in [facility] June 09, 2025 9:33 AM [facility] Claire Nguyen John 06/09/2025 9:37 AM Signed Neuro gave her eletriptan a week ago in place of the Imitrex, but patient states it does not work well and is asking to have the Imitrex sent in as a back up. Pharmacy had refills of the Imitrex, but they were cancelled. Please call patient [phone] Cori Hanson MA 06/09/2025 9:47 AM Signed Patient did send message to [facility] provider through [employer] and waiting for response ANUSHA Herrera William [...] Observed: 05/19/2025 12:00 AM Status: COMPLETED Source: [facility] Telephone (HEATHER) ANASTASIA SIMPSON ([id number]) 1975 F Date Time Provider Department 05/19/25 ROBYN HARRIS During your visit today, we recorded the following information about you: Conchis Serrano LPN 05/19/2025 9:36 AM Signed Patient calling her medrol dose pack rx went to wrong pharmacy, she uses [facility] pharmacy. Reset rx to file. Please advise [...] Observed: 05/10/2025 3:30 PM Status: COMPLETED Source: [facility] Office Visit ([facility]) ANASTASIA SIMPSON ([id number]) 1975 F Date Time Provider Department 05/10/25 [...] for migraine Informed Consent Consent Obtained: Written [place] Protocol A moment to CARE was completed [...] collected. Written Consent Obtained: Written LOT #: [id number] Expiration Date: Month: 3 Year: 2027 Injection Sites Left (Units) Left (Sites) Right (Units) Right (Sites) TOTAL (Units) Hoop Rolls Operator 5 1 5 1 10 Procerus Units: [...] for further instructions. Referring Provider: ROBYN HARRIS [[id number]] Allergies As of Date: 05/10/2025 Noted Allergy [...] for Encounter Date Provider Department Center 05/10/2025 [id number] ROBYN HEATHER Patten [facility] Encounter Status:Closed by ROBYN HARRIS on 05/10/25 PROGRESS Observed: 05/10/2025 3:14 PM Status: COMPLETED Source: [facility] HNO ID: [id number] Author: ROBYN HARRIS PA-C Service: ? Author Type: Physician Provider Contracting Consultant Type: Progress Notes Filed: 05/10/2025 16:08 Note [...] for migraine Informed Consent Consent Obtained: Written [place] Protocol A moment to CARE was completed [...] collected. Written Consent Obtained: Written LOT #: [id number] Expiration Date: Month: 3 Year: 2027 Injection Sites Left (Units) Left (Sites) Right (Units) Right (Sites) TOTAL (Units) Hoop Rolls Operator 5 1 5 1 10 Procerus Units: [...] Observed: 04/19/2025 12:00 AM Status: COMPLETED Source: [facility] Telephone ([facility]) ANASTASIA SIMPSON ([id number]) 1975 F Date Time Provider Department 04/19/25 [...] to the patient to discuss any potential [id number] expenses. Your office should advise the patient [...] migrainosus Patient: ANASTASIA SIMPSON : 1975 DOS: [facility] Specialty Pharmacy Information Name of Specialty Pharmacy [facility] Phone Specialty Pharmacy Fax Thank [...] Knott RN 04/20/2025 11:23 AM Addendum Called [facility] mailservice and they did receive the Rx but cannot process the prescription because the start date of the auth is the date of service which is 04/27/25. If processed on 04/27/25 however, the prescription will not be here on site that day to administer to the patient. Called Michael at [phone] and was able to get the prior authorization request modified to today's date. The new date if approved will be faxed to the office. To the [place] team: Please be on the lookout to receive this updated date fax because once received we should call the specialty pharmacy back to ensure they are processing it. Thank you Robyn Rivero RN 04/20/2025 11:47 AM Signed Received updated auth approval with today's start date from [facility]. Will send to scanning. Referral updated. Again called [facility] to check on processing the prescription. They said it's not in their system yet, and can take 24 to 48 hours. Once in the system, they process Rx and contact the patient. Fire Supervisor said at this time there is no further action required from the office. Robyn Rivero RN 04/25/2025 8:14 AM Addendum Called [facility] Specialty pharmacy and spoke to four [...] think you could give this at the [place] location (it's a 200 unit vial)? We would have to confirm the delivery address when delivery is arranged. There might be more availability there, and it's where the patient lives. Robyn Harris PA-C 04/25/2025 9:38 AM Signed Addended by: ROBYN HARRIS on: 04/25/2025 09:38 AM Modules accepted: Orders Robyn Rivero RN 04/26/2025 2:14 PM Signed Scheduled May 10 in [place]. Continue follow up to ensure delivery from [facility] to [place]. Robyn Rivero RN 05/03/2025 10:50 AM Signed Called [facility] and confirmed the patient's appointment date of 05/10/2025 and delivery address as: [address] [address] Beckie Harvey MA 05/05/2025 10:20 AM Signed The Rx/ Order has been called in to [facility] [phone]. Gave them the [place] address listed. They will be contacting the patient for next steps and she will reschedule the appointment if necessary. Robyn Rivero RN 05/09/2025 11:47 AM Addendum Called [facility] at requested phone number, spoke to Judith. Judith at [facility] said there is no authorization on file from the patient to ship the Botox. She put this RN on hold to call the patient for authorization. Judith did come back on the call and confirmed she has put in an overnight delivery for 10:30 AM tomorrow in [place]. Kimmy Tyson LPN 05/10/2025 10:28 AM Signed [...] Observed: 04/07/2025 12:00 AM Status: COMPLETED Source: [facility] Telephone ([employer]) ANASTASIA SIMPSON ([id number]) 1975 F Date Time Provider Department 04/07/25 [...] Observed: 03/20/2025 8:05 PM Status: COMPLETED Source: [facility] HNO ID: [id number] Author: JACEK SCRUGGS MD Service: ? Author [...] treatments. Chronic Pain: - Pain managed with Grinnell; Anastasia reports effective control most days. - [...] OF Injections L4-L5 by Dr Knox in [place] Primary hypertension PAST SURGICAL HISTORY Procedure Laterality [...] unspecified site (C44.91) - Follow-up appointment with neighborhood aide scheduled for next week. 4. Postlaminectomy syndrome (M96.1) - Pain is managed with Grinnell; patient reports adequate control most days. - [...] to patient) Jacek Scruggs MD Recording using Korrio software for draft documentation of the visit was discussed with the patient/authorized pharmacy sales representative; all questions welcomed and answered. Patient/authorized pharmacy sales representative agreed to proceed CNOV Observed: 03/20/2025 5:00 PM Status: COMPLETED Source: [facility] Office Visit (FAMPWS) ANASTASIA SIMPSON ([id number]) 1975 F Date Time Provider Department 03/20/25 5:00 PM JACEK SCRUGGSWS During your visit today, we recorded the following information about you: Pulse Blood pressure 88/minute 102/62 Jacek Scruggs MD 03/20/2025 5:26 PM Signed - Sign your new opioid (controlled substance) agreement today so you can continue Grinnell for pain control. - Continue taking Grinnell exactly as prescribed; do not increase your dose or share it with others. - Attend your dermatology appointment in one week for your routine skin check. - Keep using your current heartburn medication, which has been helping; you may continue avoiding spicy foods as needed. - If your double vision returns, contact our office right away so we can arrange an stars specialist evaluation and any necessary imaging. - [...] treatments. Chronic Pain: - Pain managed with Grinnell; Anastasia reports effective control most days. - [...] OF Injections L4-L5 by Dr Knox in [place] Primary hypertension PAST SURGICAL HISTORY Procedure Laterality [...] unspecified site (C44.91) - Follow-up appointment with neighborhood aide scheduled for next week. 4. Postlaminectomy syndrome (M96.1) - Pain is managed with Grinnell; patient reports adequate control most days. - [...] to patient) Jacek Scruggs MD Recording using [employer] software for draft documentation of the visit was discussed with the patient/authorized pharmacy sales representative; all questions welcomed and answered. Patient/authorized pharmacy sales representative agreed to proceed Allergies As of [...] substance) agreement today so you can continue Grinnell for pain control. - Continue taking Grinnell exactly as prescribed; do not increase your dose or share it with others. - Attend your dermatology appointment in one week for your routine skin check. - Keep using your current heartburn medication, which has been helping; you may continue avoiding spicy foods as needed. - If your double vision returns, contact our office right away so we can arrange an stars specialist evaluation and any necessary imaging. - Plan to return to this clinic in about two months to review your pain management, migraine treatment, and overall progress. Disposition: Return in about 2 months (around 05/20/2025). Follow-up and Disposition History for Encounter Date Provider Department Center 03/20/2025 [id number] SCRUGGS [facility] Encounter Status:Closed by JACEK SCRUGGS on 03/20/25 SCARLETT Observed: 03/17/2025 12:00 AM Status: COMPLETED Source: [facility] Telephone ([facility]) ANASTASIA SIMPSON ([id number]) 1975 F Date Time Provider Department 03/17/25 ROBYN HARRIS [facility] During your visit today, we recorded the [...] Observed: 03/03/2025 3:08 PM Status: COMPLETED Source: [facility] HNO ID: [id number] Author: STEPHANIE TELLO MD Service: Anesthesiology Author Type: Anesthesiologist Type: Anesthesia Postprocedure Evaluation Filed: 03/03/2025 15:10 Note Text: POST ANESTHESIA EVALUATION NOTE : 1975 Procedure Summary Date: 03/03/25 Room / Location: [facility] Endoscopy Anesthesia Start: 720 Anesthesia Stop: 742 Procedure: COLONOSCOPY SCREENING Diagnosis: History of colonic polyps Screen for colon cancer (High risk colon cancer surveillance: Personal History of adenomatous polyps) Scheduled Providers: Sage Bryant MD; Stephanie Tello MD; Gypsy Agrawal APRN.LIFE SCIENCES MANAGER Responsible Provider: Stephanie Tello MD Anesthesia Type: [...] March 03, 2025 TIME: 3:08 PM CSN: [id number] ED NOTE Observed: 03/03/2025 11:11 AM Status: COMPLETED Source: [facility] HNO ID: [id number] Author: MEY MESSER RN Service: ? Author Type: Registered Nurse Type: ED Notes Filed: 03/03/2025 11:11 Note Text: Discharge instructions reviewed with patient via teachback. Pt verbalizes understanding. Pt awake and alert, respirations regular and unlabored. No further questions for this RN. COMP METAB 2000 PNL SERPL Collected: 9:56 AM Status: F Source: [facility] Order Comment: Specimen Type : BLOOD SPECIMEN Ordering Facility: [facility] Address: [place] [address] TYPE CODE TESTS RESULT OUT OF RANGE REFERENCE UNITS LAB 2885-2(LOINC) Prot SerPl-mCnc 6.3 6.3-8.0 g/dL LAB 1751-7(LOINC) Albumin SerPl-mCnc 3.8 Low 3.9-4.9 g/dL LAB 54123-2(LOINC) Calcium SerPl-mCnc 8.4 Low 8.5-10.2 mg/dL LAB 1975-2(LOINC) Bilirub SerPl-mCnc 0.3 0.2-1.3 mg/dL LAB 6768-6(LOINC) ALP SerPl-cCnc 59 34-123 U/L LAB 1920-8(LOINC) AST SerPl-cCnc 19 13-35 U/L LAB 1742-6(LOINC) ALT SerPl-cCnc 13 7-38 U/L LAB 2345-7(LOINC) Glucose SerPl-mCnc 88 74-99 mg/dL Result Comment: The [place] Diabetes Association (ADA) provides guidance for cutoff [...] Standards of Medical Care in Diabetes 2016, [place] Diabetes Association. Diabetes Care. 2016.39(Suppl 1). LAB 3094-0(LOINC) BUN SerPl-mCnc 13 7-21 mg/ dL LAB 2160-0(LOINC) Creat SerPl-mCnc 0.56 Low 0.58-0.96 mg/dL LAB 2951-2(LOINC) Sodium SerPl-sCnc 140 136-144 mmol/L LAB 2823-3(LOINC) Potassium SerPl-sCnc 3.7 3.7-5.1 mmol/L LAB 2075-0(LOINC) Chloride SerPl-sCnc 107 98-107 mmol/L LAB 2027-9(LOINC) CO2 SerPl-sCnc 24 22-30 mmo l/L LAB 38901-5(LOINC) Anion Gap SerPl-sCnc 9 8-15 mmol/L LAB 07663-3(LOINC) Creatinine + eGFR Pnl SerPlBld 112 >=60 [...] accurately reflect actual GFR. Performed By: #### 05011-9, 3040-3, #### [facility] CLIA [id number] [address] STATES [facility] LIPASE SERPL-CCNC Collected: 03/03/2025 9:56 AM Stat us: F Source: [facility] Order Comment: Specimen Type : BLOOD SPECIMEN Ordering Facility: [facility] Address: [address] [place] [address] TYPE CODE TESTS RESULT OUT OF RANGE REFERENCE UNITS LAB 3040-3([facility]) Lipase SerPl-cCnc 37 16-61 U/L Performed By: #### 11149-6, 3040-3, 98747-0 #### [facility] CLIA [id number] [address] [place] MAGNESIUM SERPL-MCNC Collected: 03/03/2025 9:56 AM S tatus: F Source: [facility] Order Comment: Specimen Type : BLOOD SPECIMEN Ordering Facility: [facility] Address: [address] [place] [address] TYPE CODE TESTS RESULT OUT OF RANGE REFERENCE UNITS LAB 19948-0([facility]) Magnesium SerPl-mCnc 2.0 1.7-2.3 mg/dL Performed By: #### 06957-4, 3040-3, 70615-8 #### [facility] CLIA [id number] [address] [place] [address] [place] [facility] CBC W AUTO DIFF BLD Collected: 03/03/2025 9:[address] atus: F Source: [facility] Order Comment: Specimen Type : BLOOD SPECIMEN Ordering Facility: [facility] Address: [address] [place] [address] TYPE CODE TESTS RESULT OUT OF RANGE REFERENCE UNITS LAB 6690-2([facility]) WBC # Bld Auto 9.99 3.70-11.00 k/uL LAB 789-8([facility]) RBC # Bld Auto 4.36 3.90-5.20 m/ uL LAB 718-7([facility]) Hgb Bld-mCnc 12.9 11.5-15.5 g/dL LAB 4544-3([facility]) Hct VFr Bld Auto 39.3 36.0-46.0 % LAB 787-2([facility] [facility] MCV RBC Auto 90.1 80.0-100.0 fL LAB 785-6([facility]) MCH RBC Qn Auto 29.6 26.0-34.0 p g LAB 786-4([facility]) MCHC RBC Auto-mCnc 32.8 30.5-36.0 g/dL LAB 45608-4([facility]) RDW RBC-Rto 12.4 11.5-15.0 % LAB 777-3([facility]) Platelet # Bld Auto 224 150-400 k/uL LAB 66326-9([facility]) PMV Bld Auto 10.4 9.0-12.7 fL LAB [...] # Bld Auto 0.09 <0.11 k/uL LAB 75816-0(LOINC) Imm Granulocytes/aileen k NFr Bld Auto 0.4 % LAB 51416-0(LOINC) Imm Granulocytes # Bld Auto 0.04 <0.10 k/uL LAB 60513-3(LOINC) nRBC/100 WBC Bld-Rto 0.0 /100 WBC LAB 771-6(LOINC) nRBC # Bld Auto <0.01 <0.01 k/u L LAB 66584-3(LOINC) Differential method Bld Auto Performed By: #### 53309-4 # ### [facility] CLIA [id number] [address] [place] [address] [facility] ED PROV NOTE Observed: 03/03/2025 9:47 AM Status: COMPLETED Source: [facility] HNO ID: [id number] Author: ADRIAN REECE DO Service: Emergency Medicine Author Type: Physician Type: ED Provider Notes Filed: 03/03/2025 14:34 Note Text: ED Provider Note Patient Name: Anastasia Simpson : 1975 SERVICE DATE: 03/03/25 History Patient presents with: Visual Changes: Pt presents to ED from PACU with c/o blurry/double vision following colonoscopy. CALENDER WIND UP TENDER states pt tolerated procedure well, was able [...] OF Injections L4-L5 by Dr Knox in [place] Primary hypertension PAST SURGICAL HISTORY Procedure Laterality [...] Observed: 03/03/2025 9:13 AM Status: COMPLETED Source: [facility] HNO ID: [id number] Author: DREW DUMONT RN Service: ? Author Type: Registered Nurse Type: ED Notes Filed: 03/03/2025 09:13 Note Text: Bed: ED-11 Expected date: 03/03/25 Expected time: Means of arrival: Comments: PACU NURSING PROG Observed: 03/03/2025 8:00 AM Status: COMPLETED Source: [facility] HNO ID: [id number] Author: JULIANE LIGHT RN Service: Nursing Author [...] Observed: 03/03/2025 7:30 AM Status: COMPLETED Source: [facility] HNO ID: [id number] Author: SAGE BRYANT MD Service: General Surgery Author Type: Physician Type: H&P Filed: 03/03/2025 06:51 Note Text: HISTORY AND PHYSICAL Anastasia Simpson : 1975 REFERRING PHYSICIAN: Jacek Scruggs [address] [facility] [place] [address] CHIEF COMPLAINT: Patient presents with: Consult: Hx [...] colonoscopy was 02/[address] Bryant at [facility]. Sedation:[facility] EGD Impressions : - Normal esophagus. - [...] OF Injections L4-L5 by Dr Knox in [place] Primary hypertension PAST SURGICAL HISTORY PAST SURGICAL [...] Observed: 03/03/2025 7:09 AM Status: F Source: [facility] Gastrointestinal Endoscopy Patient Name: Anastasia Simpson Procedure Date: 03/03/2025 7:09 AM Date of : 1975 Admit Type: Outpatient Age: 49 Room: [facility] Gender: Female Note Status: Finalized Attending MD: Sage Bryant MD, [id number] Procedure: Colonoscopy Indications: High risk colon cancer [...] physician PRN. Procedure Code(s): --- Professional --- 91319, Colonoscopy, flexible; diagnostic, including collection of specimen(s) by brushing or washing, when performed (separate procedure) Diagnosis Code(s): --- Professional --- Z12.11, Encounter for screening for malignant neoplasm of colon Z86.0101, Personal history of adenomatous and serrated colon polyps K64.8, Other hemorrhoids CPT copyright 2020 [employer]. All rights reserved. The codes documented in this report are preliminary and upon professor of rhetoric review may be revised to meet current [...] Observed: 03/03/2025 6:44 AM Status: COMPLETED Source: [facility] HNO ID: [id number] Author: STEPHANIE TELLO MD Service: Anesthesiology Author Type: Anesthesiologist Type: Anesthesia Preprocedure Evaluation Filed: 03/03/2025 06:44 Note Text: ANESTHESIOLOGY DAY OF SURGERY NOTE : 1975 Procedure Information Date/Time: 03/03/25729 Scheduled providers: Sage Bryant MD; Stephanie Tello MD; Gypsy Agrawal APRN.LIFE SCIENCES MANAGER Procedure: COLONOSCOPY SCREENING Location: [facility] Endoscopy Estimated body mass index is 23.52 [...] and consent discussed: yes. Patient / Responsible Republican agrees to proceed: yes Patient / Surrogate [...] March 03, 2025 TIME: 6:44 AM CSN: [id number] CNPN Observed: 02/15/2025 12:00 AM Status: COMPLETED Source: [facility] Telephone (FAMPWS) ANASTASIA SIMPSON ([id number]) 1975 F Date Time Provider Department 02/15/25 JACEK SCRUGGS During your visit today, we recorded the following information about you: Conchis Serrano LPN 02/15/2025 12:38 PM Signed [facility] calling asking for directions [...] could respond to pharmacy request. [facility] needs to know how many hours and max dose for daily use. Order says once daily so every 24 hours and max dose daily 1? Please call verbal to [facility]. Please review and advise, MARTITA Ortega Jacqueline A, APRN.SALES REPRESENTATIVE PUBLIC UTILITIES 02/16/2025 1:54 PM Signed Done- called to [...] Date Reviewed: 01/23/2025 Reviewed by: Quin Mendez APRN.SALES REPRESENTATIVE PUBLIC UTILITIES - Fully Assessed Reason for Visit: Medication [...] Observed: 01/25/2025 4:42 PM Status: COMPLETED Source: [facility] ID: [id number] Author: MALOU BAEZ PA-C Service: ? Author Type: Physician Provider Contracting Consultant Type: Progress Notes Filed: 01/25/2025 17:34 Note [...] for migraine Informed Consent Consent Obtained: Written [place] Protocol A moment to CARE was completed [...] collected. Written Consent Obtained: Written LOT #: [id number] Expiration Date: Month: Year: 2026 Second vial: LOT #: [id number] Expiration Date: Month: Year: 2026 Injection Sites Left (Units) Left (Sites) Right (Units) Right (Sites) TOTAL (Units) Hoop Rolls Operator 5 1 5 1 10 Procerus Units: [...] Observed: 01/25/2025 4:25 PM Status: COMPLETED Source: [facility] Office Visit (CASPER) ANASTASIA SIMPSON ([id number]) 1975 F Date Time Provider Department 01/25/25 [...] for migraine Informed Consent Consent Obtained: Written [place] Protocol A moment to CARE was completed [...] collected. Written Consent Obtained: Written LOT #: [id number] Expiration Date: Month: Year: 2026 Second vial: LOT #: [id number] Expiration Date: Month: Year: 2026 Injection Sites Left (Units) Left (Sites) Right (Units) Right (Sites) TOTAL (Units) Hoop Rolls Operator 5 1 5 1 10 Procerus Units: [...] Malou Baez PA-C Referring Provider: ROBYN HARRIS [[id number]] Allergies As of Date: 01/25/2025 Noted Allergy [...] Date Reviewed: 01/23/2025 Reviewed by: Quin Mendez APRN.SALES REPRESENTATIVE PUBLIC UTILITIES - Fully Assessed Reason for Visit: Headache [...] Observed: 01/23/2025 11:30 AM Status: COMPLETED Source: [facility] HNO ID: [id number] Author: QUIN MENDEZ APRN.SALES REPRESENTATIVE PUBLIC UTILITIES Service: ? Author Type: Nurse Practitioner Type: Progress Notes Filed: 01/23/2025 11:52 Note Text: HISTORY AND PHYSICAL Anastasia Simpson : 1975 REFERRING PHYSICIAN: Jacek Scruggs [address] [facility] [place] [address] CHIEF COMPLAINT: Patient presents with: Consult: Hx [...] colonoscopy was 02/[address] Bryant at [facility]. Sedation:MAC EGD Impressions : - Normal esophagus. [...] OF Injections L4-L5 by Dr Knox in [place] Primary hypertension PAST SURGICAL HISTORY Procedure Laterality [...] Observed: 01/23/2025 11:30 AM Status: COMPLETED Source: [facility] Office Visit (GENSWS) CALVINJUSTYNANASTASIA Gay ([id number]) 1975 F Date Time Provider Department 01/23/25 11:30 AM QUIN MENDEZ During your visit today, we recorded the following information about you: Temperature Pulse Respiration Blood pressure 97.8 degrees 88/minute 16/minute 124/87 Weight Height 66.7 kg 1.676 m Quin Mendez APRN.CNP 01/23/2025 11:52 AM Signed HISTORY AND PHYSICAL Anastasia Simpson : 1975 REFERRING PHYSICIAN: Jacek Dupont0 [facility] [place] [address] CHIEF COMPLAINT: Patient presents with: Consult: Hx [...] colonoscopy was 02/[address] Bryant at [facility]. Sedation:MAC EGD Impressions : - Normal esophagus. [...] OF Injections L4-L5 by Dr Knox in [place] Primary hypertension PAST SURGICAL HISTORY Procedure Laterality [...] Quin Mendez APRN.BOONE Referring Provider: JACEK SCRUGGS [[id number]] Allergies As of Date: 01/23/2025 Noted Allergy [...] Date Reviewed: 01/23/2025 Reviewed by: Quin Mendez APRN.SALES REPRESENTATIVE PUBLIC UTILITIES - Fully Assessed Reason for Visit: Consult [173] Cmt: Hx of colonic polyps Primary Visit Diagnosis:Screen for colon cancer [Z12.11] Other Visit Diagnosis:History of colonic polyps [Z86.0100] Order(s):CONSULT TO GENERAL SURGERY [9011] Order #: [id number]: 1 peg 3350-Electrolytes (GOLYTELY) 236-22.74-6.74 -5.86 gram suspensionTake 4,000 mL by mouth one time only for 1 dose. Refer to printed prep instructions from your provider.Disp: 4000 mLRfl: 0 COLONOSCOPY SCREENING [GI51] Order #: [id number] FUTURE Prescriptions as of 01/23/2025 - peg [...] Observed: 01/16/2025 6:53 PM Status: [facility]TED [facility] [id number] Author: JACEK SCRUGGS MD Service: ? Author Type: Physician Type: Progress Notes Filed: 01/16/2025 19:15 Note Text: Patient presents with: Follow Up HPI: Patient presents today for office visit for follow up. Overall doing well. Work is doing well. Emotionally is doing well. Wants to wean off lexapro. Started on estrogen and progesterone. Seeing energy efficiency specialist. Continues to use pain meds. Has done [...] OF Injections L4-L5 by Dr Knox in [place] PAST SURGICAL HISTORY Procedure Laterality Date COLONOSCOPY [...] Observed: 01/16/2025 6:40 PM Status: COMPLETED Source: [facility] ANASTAS[facility] SIMPS[facility] ([id number]) 1975 F Date Time Provider Department 01/16/25 6:40 PM [facility] During your visit today, we recorded [...] lexapro. Started on estrogen and progesterone. Seeing energy efficiency specialist. Continues to use pain meds. Has done [...] OF Injections L4-L5 by Dr Knox in [place] PAST SURGICAL HISTORY Procedure Laterality Date COLONOSCOPY [...] anxious mood [F43.22] Order(s):CONSULT TO GENERAL SURGERY [9066] Order #: [id number]: 1 FUTURE Prescriptions as of 01/16/2025 - [...] for Encounter Date Provider Department Center 01/16/2025 [id number] SCRUGGSWS [facility] Encounter Status:Closed by JACEK SCRUGGS on 01/16/25 PROGRESS Observed: 12/15/2024 12:20 PM Status: COMPLETED Source: [facility] HNO ID: [id number] Author: KIMMY TYSON LPN Service: ? Author Type: LICENSED NURSE Type: Progress Notes Filed: 12/15/2024 13:08 Note Text: Tordol 30mg/ml administered IM to right buttock as ordered and patient tolerated well and denied questions or concerns at this time. Kimmy Tyson LPN PROGRESS Observed: 12/15/2024 11:53 AM Status: COMPLETED Source: [facility] HNO ID: [id number] Author: COBY SOTELO APRN.SALES REPRESENTATIVE PUBLIC UTILITIES Service: ? Author Type: Nurse Practitioner Type: [...] OF Injections L4-L5 by Dr Knox in [place] PAST SURGICAL HISTORY Procedure Laterality Date COLONOSCOPY [...] time. Comments: Cranial nerves III-XII intact, no uncskq-uh-oiqk ataxia Psychiatric: Comments: Bright affect, neatly dressed, [...] Observed: 12/15/2024 11:40 AM Status: COMPLETED Source: [facility] ANASTASIA SIMPSON ([id number]) 1975 F Date Time Provider Department 12/15/24 11:40 AM [facility] During your visit today, we recorded [...] OF Injections L4-L5 by Dr Knox in [place] PAST SURGICAL HISTORY Procedure Laterality Date COLONOSCOPY [...] time. Comments: Cranial nerves III-XII intact, no hxvqzd-qd-zrpe ataxia Psychiatric: Comments: Bright affect, neatly dressed, [...] dose. Level of Service: OFFICE/OUTPATIENT ESTABLISHED LOW [facility] 20 MIN [18385] Additional E/M codes: VISIT CPLX INHERENT EANDM ASSOC WITH MED * Encounter Status:Closed by COBY SOTELO on 12/15/24 CNOV Observed: 11/14/2024 6:00 PM Status: COMPLETED Source: [facility] ANASTASIA SIMPSON ([id number]) 1975 F Date Time Provider Department 11/14/24 6:00 PM [facility] During your visit today, we recorded [...] OF Injections L4-L5 by Dr Knox in [place] PAST SURGICAL HISTORY Procedure Laterality Date COLONOSCOPY [...] Observed: 11/14/2024 5:47 PM Status: COMPLETED [facility] [id number] Author: JACEK SCRUGGS MD Service: ? Author [...] OF Injections L4-L5 by Dr Knox in [place] PAST SURGICAL HISTORY Procedure Laterality Date COLONOSCOPY [...] Observed: 10/21/2024 3:39 PM Status: COMPLETED Source: [facility] HNO ID: [id number] Author: ROBYN HARRIS PA-C Service: ? Author Type: Physician Provider Contracting Consultant Type: Progress Notes Filed: 10/21/2024 15:56 Note [...] for migraine Informed Consent Consent Obtained: Written [place] Protocol A moment to CARE was completed [...] applicable Written Consent Obtained: Written LOT #: [id number] Expiration Date: Month: : 2026 Second vial: LOT #: [id number] Expiration Date: Month: Year: 2026 Injection Sites Left (Units) Left (Sites) Right (Units) Right (Sites) TOTAL (Units) Hoop Rolls Operator 5 1 5 1 10 Procerus Units: [...] Observed: 10/21/2024 3:30 PM Status: COMPLETED Source: [facility] Office Visit ([facility]) ANASTASIA SIMPSON ([id number]) 1975 F Date Time Provider Department 10/21/24 3:30 PM ROBYN HARRIS [facility] During your visit today, we recorded the [...] for migraine Informed Consent Consent Obtained: Written [place] Protocol A moment to CARE was completed [...] applicable Written Consent Obtained: Written LOT #: [id number] Expiration Date: Month: Year: 2026 Second vial: LOT #: [id number] Expiration Date: Month: Year: 2026 Injection Sites Left (Units) Left (Sites) Right (Units) Right (Sites) TOTAL (Units) Hoop Rolls Operator 5 1 5 1 10 Procerus Units: [...] for further instructions. Referring Provider: ROBYN HARRIS [[id number]] Allergies As of Date: 10/21/2024 Noted Allergy [...] for Encounter Date Provider Department Center 10/21/2024 [id number], MELANIE [facility] Encounter Status:Closed by ROBYN HARRIS on 10/21/24 CNPN Observed: 10/13/2024 12:00 AM Status: COMPLETED Source: [facility] Telephone (E[employer] Homes) ANASTASIA SIMPSON ([id number]) 1975 F Date Time Provider Department 10/13/24 [...] Observed: 10/12/2024 12:00 AM Status: COMPLETED Source: [facility] Telephone (NEMOWS) CALVINANASTASIA ([id number]) 1975 F Date Time Provider Department 10/12/24 [...] Observed: 10/05/2024 4:00 PM Status: COMPLETED Source: [facility] Office Visit (HEATHER) ANASTASIA SIMPSON ([id number]) 1975 F Date Time Provider Department 10/05/24 4:00 PM ROBYN HARRIS During your visit today, we recorded the following information about you: Pulse Blood pressure 83/minute 132/95 Robyn Harris PA-C 10/05/2024 4:21 PM Signed [facility] Follow up CC: Headache [...] OF Injections L4-L5 by Dr Knox in [place] PAST SURGICAL HISTORY Procedure Laterality Date COLONOSCOPY [...] which included preparing to see the patient, dald-nm-vpco patient care, completing clinical documentation, obtaining and/or reviewing separately obtained history, performing a medically appropriate examination, counseling and educating the patient/family/caregiver, and ordering medications, tests, or procedures. Robyn Harris PA-C General Neurology [address] [place] [address]. [id number] Appointment: [phone] Robyn Harris PA-C 10/05/2024 4:09 PM Addendum [...] for Encounter Date Provider Department Center 10/05/2024 [id number] HARRIS [facility] Encounter Status:Closed by ROBYN HARRIS on 10/05/24 PROGRESS Observed: 10/05/2024 3:31 PM Status: COMPLETED Source: [facility] HN ID: [id number] Author: ROBYN HARRIS PA-C Service: ? Author Type: Physician Provider Contracting Consultant Type: Progress Notes Filed: 10/05/2024 16:21 Note Text: [facility] Follow up CC: Headache [...] OF Injections L4-L5 by Dr Knox in [place] PAST SURGICAL HISTORY Procedure Laterality Date COLONOSCOPY [...] which included preparing to see the patient, vgak-bt-vhoa patient care, completing clinical documentation, obtaining and/or reviewing separately obtained history, performing a medically appropriate examination, counseling and educating the patient/family/caregiver, and ordering medications, tests, or procedures. Robyn Harris PA-C General Neurology [address] [place] [address]. [address] Appointment: [phone] PROGRESS Observed: 09/19/2024 5:23 PM Status: COMPLETED Source: [facility] HNO ID: [id number] Author: JACEK SCRUGGS MD Service: ? Author [...] OF Injections L4-L5 by Dr Knox in [place] PAST SURGICAL HISTORY Procedure Laterality Date COLONOSCOPY [...] Observed: 09/19/2024 5:20 PM Status: COMPLETED Source: [facility] ANASTASIA SIMPSON ([id number]) 1975 F Date Time Provider Department 09/19/24 5:20 PM [facility] During your visit today, we recorded [...] OF Injections L4-L5 by Dr Knox in [place] PAST SURGICAL HISTORY Procedure Laterality Date COLONOSCOPY [...] for Encounter Date Provider Department Center 09/19/2024 [id number] SCRUGGS [facility] Encounter Status:Closed by JACEK SCRUGGS on 09/19/24 CNPN Observed: 09/08/2024 12:00 AM Status: COMPLETED Source: [facility] Telephone (NEMOWS) ANASTASIA SIMPSON ([id number]) 1975 F Date Time Provider Department 09/08/24 ROBYN HARRIS During your visit today, we recorded the following information about you: Mariel Johnston RN 09/08/2024 11:09 AM Signed Patient calling to give message to MARANDA Jaimes that her [employer] insurance will not cover her Atogepant medication. [...] Observed: 09/08/2024 12:00 AM Status: COMPLETED Source: [facility] Telephone ([facility]) ANASTASIA SIMPSON ([id number]) 1975 F Date Time Provider Department 09/08/24 ROBYN HARRIS [facility] During your visit today, we recorded the following information about you: Lian Rivero MA 09/08/2024 4:45 PM Signed Received Prior Authorization request via: From [facility] Medication being Authorized: Qulipta 60 mg Completed PA via: Completed form, placed on providers desk for signature, form needs faxed to: [phone] (as stated on form) Reference number/ Provider: ANUSHA Haney Heidi, MA 09/08/2024 4:45 PM Signed Request completed and faxed. ANUSHA Hicks Sherrie, RN 09/09/2024 11:39 AM Signed Patient updated. Mariel Johnston RN MatRobyn batres RN 09/09/2024 5:04 PM Addendum Received fax denial from [facility] in [place]. Showed the denial to Robyn Harris PA-C and it will be sent to [facility]. Allergies As of Date: 09/08/2024 Noted [...] Observed: 09/02/2024 10:46 AM Status: COMPLETED Source: [facility] ID: [id number] Author: ROBYN HARRIS PA-C Service: ? Author Type: Physician Provider Contracting Consultant Type: Progress Notes Filed: 09/02/2024 11:10 Note Text: [facility] Follow Up / Established Virtual Visit I have communicated my name and active licensure. The patient's identity and physical location were verified at the time of this visit. Either the patient or their legal pharmacy sales representative has been informed of the risks and benefits of -- and alternatives to -- treatment through a remote evaluation and consents to proceed with the evaluation remotely. Individuals who were included in, or assisted with the encounter were: Anastasia Simpson Polly Jaimes Complaint/Issues: Anastasia Simpson is a 48 year old female seen in the [facility] for: Migraine Most Recent [...] it turned into a large red warm redding. She does again think of it so [...] OF Injections L4-L5 by Dr Knox in [place] PAST SURGICAL HISTORY Procedure Laterality Date COLONOSCOPY [...] Range Case Report Gynecologic Cytology Report Case: [id number] Authorizing Provider: Judith Newman APRN.SALES REPRESENTATIVE PUBLIC UTILITIES Collected: 08/03/2024 07:50 AM Ordering Location: OB/Gynecology [...] at recommended intervals, and clinical correlation. PAP Telephone Clerks Supervisor Comment This specimen has been analyzed by the brick&mobilePrep Imaging System, an automated imaging and review system, which assists the laboratory in evaluating cells on ThinPrep Pap tests. Following automated imaging, selected dutton from every slide are reviewed by a cat driver. Performing Lab Technical component, cat driver screening performed at [facility], [address], [facility] [place] [address] CLIA# [id number] Diagnostic interpretation performed at [facility] [address] [facility] [address] CLIA# [id number] [place] Guide: Mat Ulrich M.D. HIGH RISK HUMAN PAPILLOMA [...] which included preparing to see the patient, mpzw-fo-usvx patient care, completing clinical documentation, obtaining and/or reviewing separately obtained history, performing a medically appropriate examination, counseling and educating the patient/family/caregiver, and ordering medications, tests, or procedures. Robyn Harris PA-C SKY SCREENING W NICOLA Observed: 7:41 AM Status: F Source: [facility] * * *Final Report* * * DATE OF EXAM: Aug 30 2024 7:41AM [id number] [id number] - [facility] SCREENING W NICOLA / PROCEDURE REASON: Screening breast examination * * * * Physician Interpretation * * * * RESULT: [address] [address] [place] [address] #[id number] - [facility] SCREENING W NICOLA HISTORY: Patient is 48 [...] Eliana Wheeler M.D. Electronically signed on: 08/31/2024 Svp Marketing: JOY Transcribe Date/Time: Aug 30 2024 7:21A Dictated by: ELLA JEWELL MD This examination was interpreted and the report reviewed and electronically signed by: ELIANA WHEELER MD on Aug 31 2024 8:01AM EST [id number] Observed: 08/30/2024 7:10 AM Status: COMPLETED Source: [facility] ID: [id number] Author: JEMIMA RUIZ Mammo Tech Service: ? Author Type: Boat Carpenter Mechanic Type: Progress Notes Filed: 08/30/2024 07:20 Note [...] PATIENT PRESENTS WITH AN IMPLANTABLE OR ATTACHED ENGINEER CONDUCTOR: No RADIOLOGY DEPARTMENT: Mammography PERIPHERAL IV DATA: Not applicable SIGNED BY: Jerrod Minor August 30, 2024 7:20 AM CNPN Observed: 08/29/2024 12:00 AM Status: COMPLETED Source: [facility] Telephone ([employer] [place]) CALVINANASTASIA ([id number]) 1975 F Date Time Provider Department 08/29/24 JACEK SCRUGGS During your visit today, we recorded the following information about you: Nati Raya RN 08/29/2024 9:07 AM Signed Prior Authorization Documentation Prior authorization requested for the following medication: Medication: Omeprazole Provider: Dr. Scruggs Insurance Company Name: [employer] [facility] Phone number: Patient ID number: [id number] RXBIN: [id number] RXGRP: [id number] Pharmacy Name: [facility] Telephone number: [phone] MARTITA Ortega Janice, LPN 08/29/2024 9:18 AM Signed Electronic PA requested. Rachele Santana LPN 08/29/2024 9:24 AM Signed Unable to complete this electronically. Will try on covermymeds Rachele Santana LPN 08/29/2024 9:24 AM Signed ANASTASIA SIMPSON (Patel: [id number]) - [id number] Omeprazole [address] capsules status: PA Request [...] 2:37 PM Signed Appeal requested faxed to [phone]. Rachele Santana LPN 08/30/2024 9:27 AM Signed [...] Observed: 08/29/2024 12:00 AM Status: COMPLETED Source: [facility] Telephone ([employer]) ANASTASIA SIMPSON ([id number]) 1975 F Date Time Provider Department 08/29/24 [...] Date Reviewed: 08/03/2024 Reviewed by: Judith Newman APRN.SALES REPRESENTATIVE PUBLIC UTILITIES - Fully Assessed Reason for Visit: Insurance Authorization [[id number]] Cmt: Emgality Renewal Prescriptions as of 08/29/2024 [...] Observed: 08/11/2024 12:00 AM Status: COMPLETED Source: [facility] Letter Text CNPN Observed: 08/08/2024 12:00 AM Status: COMPLETED Source: [facility] Telephone (NEMOWS) ANASTASIA SIMPSON ([id number]) 1975 F Date Time Provider Department 08/08/24 [...] 2024 1:02 PM Robyn Harris PA-C Neuro Sejagvv51 minutes ago (12:08 PM) MQ This could [...] Date Reviewed: 08/03/2024 Reviewed by: Judith Newman APRN.SALES REPRESENTATIVE PUBLIC UTILITIES - Fully Assessed Reason for Visit: Medication [...] TEST Collected: 7:50 AM Status: F Source: [facility] Order Comment: Specimen Type : FLUID SPECIMEN Ordering Facility: [facility] Address: [address] [place] [address] TYPE CODE TESTS RESULT OUT OF RANGE REFERENCE UNITS PATHOLOGY [id number] CASE REPORT Result Comment: Gynecologic Cytology Report Case: [id number] Authorizing Provider: Judith Newman APRN.CNP Collected: 08/03/2024 07:50 AM Ordering Location: OB/Gynecology Received: 08/03/2024 11:14 AM First Screen: Monica Riley, CT, ASCP Pathologist: Arlette Mccray MD Specimen: Pap Test, ThinPrep, Cervix PATHOLOGY [id number] ADEQUACY Satisfactory for interpretation. PATHOLOGY [id number] PAP GENERAL CATEGORIZATION Epithelial Cell Abnormality PATHOLOGY [id number] INTERPRETATION, CYTOLOGY, DIGGING MACHINE OPERATOR Abnormal Result Comment: Atypical squ amous cells of undetermined significance (ASC-US). OLOGY [id number] CYTOLOGY PAP OTHER INTERPRETATION Endometrial cells present in a woman 45 years or older (see comment). PATHOLOGY [id number] DIAGNOSIS COMMENT Endometrial cells in women 45 years or older, may be associated with benign endometrium, hormonal alterations and less commonly, endometrial or uterine abnormalities. Endometrial evaluation is recommended in postmenopausal women. PATHOLOGY [id number] CLINICAL HISTORY, CYTOLOGY, DIGGING MACHINE OPERATOR Routine Exam PATHOLOGY [id number] LMP 07/30/2024 PATHOLOGY PAPDC PAP DISCLAIMER COMMENT The Pap Smear is a screening test for cervical cancer. False negative results occur with all screening tests, emphasizing the need for rescreening at recommended intervals, and clinical correlation. PATHOLOGY PAPIC PAP PRECINCT POLICE SERGEANT COMMENT This specimen has been analyzed by the ThinPrep Imaging System, an automated imaging and review system, which assists the laboratory in evaluating cells on ThinPrep Pap tests. Following automated imaging, selected dutton from every slide are reviewed by a cytotechnologis tUriel PATHOLOGY [facility] FINAL PERFORMING LAB Result Comment: Technical co mpoemi, cat driver screening performed at [facility], [address] [place] [address] CLIA# [id number] Diagnostic interpretation performed at [facility], [address] [place] [address] CLIA# [id number] [place] Guide: Mat Ulrich M.D. Performed By: #### [id number] # ### [facility] CLIA [id number] [address] [place], [place] [address] [address] [place] HIGH RISK HUMAN PAPILLOMA VIRUS (HPV), PCR FOR DETECTION AND GENOTYPING Collected: 08/03/2024 7:50 AM Status: F Source: [facility] Order Comment: Specimen Type : FLUID SPECIMEN Ordering Facility: [facility] Address: [address] [place] [address] TYPE CODE TESTS RESULT OUT OF RANGE REFERENCE UNITS LAB 63856-7(LOINC) HPV16 Ag Spec Ql Not detected Not detected LAB 19060-1(LOINC) HPV18 Ag Spec Ql Not detected Not detected LAB 12535-5(LOINC) HPV HR 12 DNA Cvx Ql BRANDYN+probe Not detected Not detected Result Comment: High Risk HP V Other Type includes HPV types 31, 33, 35, 39, 45, 51, 52, 56, 58, 59, 66 and 68. Performed By: #### HPVHRT ## ## [facility] CLIA [id number] [address] [place] [address] CNOV Observed: 08/03/2024 7:30 AM Status: COMPLETED Source: [facility] Office Visit (OBGYWM) ANASTASIA SIMPSON Gay ([id number]) 1975 F Date Time Provider Department 08/03/24 7:30 AM JUDITH NEWMAN OBGYWM During your visit today, we recorded the following information about you: Blood pressure Weight Height Last Period 102/60 64 kg 1.676 m 07/30/24 Judith Newman APRN.SALES REPRESENTATIVE PUBLIC UTILITIES 08/03/2024 7:55 AM Signed Account Advisor offered: Patient declines. Anastasia is a 48 [...] Multiple0 Live Births0 Comment: 1 vaginal delivery Jive Developer History LMP: 07/30/2024 (Approximate), Having periods Age at Menarche: Age at First : Age at Menopause: Jive Developer History Comments: Sexual Activity: Yes; Male; ablation [...] OF Injections L4-L5 by Dr Knox in [place] PAST SURGICAL HISTORY Procedure Laterality Date COLONOSCOPY [...] discussed with the Patient or Patient's Authorized Fire Supervisor. As applicable, any other physician, advance practice provider, medical student, or other health professional student that will be observing or involved in the sensitive examination for educational or training purposes was discussed with the Patient or Authorized Fire Supervisor. The Patient or Authorized Fire Supervisor has agreed to proceed with the sensitive [...] external genitalia normal, normal Bartholin's glands, urethra, Bellamy's glands, no vulvar lesions, no cervical lesions, [...] year or sooner as needed Judith Newman APRN.SALES REPRESENTATIVE PUBLIC UTILITIES Allergies As of Date: 08/03/2024 Noted Allergy [...] Date Reviewed: 08/03/2024 Reviewed by: Judith Newman APRN.SALES REPRESENTATIVE PUBLIC UTILITIES - Fully Assessed Reason for Visit: Yearly Exam [187] Primary Visit Diagnosis:Encounter for gynecological examination (general) (routine) without abnormal findings [Z01.419] Other Visit Diagnoses:Screening for cervical cancer [Z12.4] Encounter for screening for human papillomavirus (HPV) [Z11.51] Encounter for screening mammogram for breast cancer [Z12.31] Order(s):PAP TEST [IIK8441] Order #: [id number]. #:[id number] [id number] SCREENING W NICOLA [[id number]] Order #: [id number] FUTURE Prescriptions as of 08/03/2024 - cyclobenzaprine [...] for Encounter Date Provider Department Center 08/03/2024 [id number] NEWMAN [facility] Encounter Status:Closed by JUDITH NEWMAN on 08/03/24 PROGRESS Observed: 08/03/2024 7:18 AM Status: COMPLETED Source: [facility] HNO ID: [id number] Author: JUDITH NEWMAN APRN.SALES REPRESENTATIVE PUBLIC UTILITIES Service: ? Author Type: Nurse Practitioner Type: Progress Notes Filed: 08/03/2024 07:55 Note Text: Account Advisor offered: Patient declines. Anastasia is a 48 [...] Multiple0 Live Births0 Comment: 1 vaginal delivery Jive Developer History LMP: 07/30/2024 (Approximate), Having periods Age at Menarche: Age at First : Age at Menopause: Jive Developer History Comments: Sexual Activity: Yes; Male; ablation [...] OF Injections L4-L5 by Dr Knox in [place] PAST SURGICAL HISTORY Procedure Laterality Date COLONOSCOPY [...] discussed with the Patient or Patient's Authorized Fire Supervisor. As applicable, any other physician, advance practice provider, medical student, or other health professional student that will be observing or involved in the sensitive examination for educational or training purposes was discussed with the Patient or Authorized Fire Supervisor. The Patient or Authorized Fire Supervisor has agreed to proceed with the sensitive [...] external genitalia normal, normal Bartholin's glands, urethra, Bellamy's glands, no vulvar lesions, no cervical lesions, [...] Observed: 07/29/2024 12:00 AM Status: COMPLETED Source: [facility] CALVINANASTASIA ([id number]) 1975 F Date Time Provider Department 07/29/24 DILLNO KIM [facility] During your visit today, we recorded [...] Observed: 07/28/2024 2:13 PM Status: F Source: [facility] CULTURE, URINE: No growth (<1,000 CFU/ml) Performed By: #### 630-4 ### # [facility] CLIA [id number] [address] [place] [address] ECG COMPLETE Observed: 07/28/2024 1:46 PM Status: F Source: [facility] Ventricular Rate : 68 BPM Atrial Rate : 68 BPM P-R Interval : 146 ms QRS Duration : 88 ms Q-T Interval : 404 ms QTC Calculation(Bazett) : 429 ms Calculated P Titus : 70 degrees Calculated R Titus : 18 degrees Calculated T Titus : 50 degrees NORMAL SINUS RHYTHM NORMAL ECG Confirmed by MD JENSEN GREGORY () on 07/29/2024 3:17:23 PM NAME : ANASTASIA SIMPSON PID : [id number] : 1975 Gender : Female Race : ORD : [id number] Procedure Date : Jul 28 2024 13:46:57 Edit Date : Jul 29 2024 15:17:24 Diagnosis: NORMAL SINUS RHYTHM NORMAL ECG Confirmed by MD JENSEN GREGORY () on 07/29/2024 3:17:23 PM Test Reason : Location : [facility] : [facility] Overread By : MD JENSEN GREGORY Edited By : MD JENSEN GREGORY Referred By : KILEY KOENIG Acquired by : RADHA RIDLEY LUMBAR 3V AP/LAT/L5-S1 Observed: 03/2024 1:42 PM Status: F Source: [facility] * * *Final Report* * * DATE [...] Stable examination. No acute findings are identified. Svp Marketing: [facility] Transcribe Date/Time: Jul 28 2024 1:52P Dictated by : BIRD BLOUNT MD This examination was interpreted and the report reviewed and electronically signed by: BIRD BLOUNT MD on Jul 28 2024 1:56PM EST [id number] XR SACRUM/COCCYX 3V AP/LAT Observed: 03/2024 1:42 PM Status: F Source: [facility] * * *Final Report* * * DATE [...] intact. IMPRESSION: No acute findings are identified. Svp Marketing: [facility] Transcribe Date/Time: Jul 28 2024 1:52P Dictated by : BIRD BLOUNT MD This examination was interpreted and the report reviewed and electronically signed by: BIRD BLOUNT MD on Jul 28 2024 2:03PM EST [id number] PROGRESS Observed: 07/28/2024 1:30 PM Status: COMPLETED Source: [facility] HNO ID: [id number] Author: HENRI GLASGOW RT(Dre) Service: ? Author Type: Boat Carpenter Mechanic Type: Progress Notes Filed: 07/28/2024 13:41 Note [...] PATIENT PRESENTS WITH AN IMPLANTABLE OR ATTACHED ENGINEER CONDUCTOR: No RADIOLOGY DEPARTMENT: General X-ray: Exam(s) Completed: Spine X-Ray(s): Lumbar AP / LAT / L5-S1 and Sacrum/Coccyx PERIPHERAL IV DATA: Not applicable SIGNED BY: RT Shannen(R) July 28, 2024 1:28 PM IVONNE Observed: 07/28/2024 1:15 PM Status: COMPLETED Source: [facility] Office Visit (WSTR) ANASTASIA SIMPSON ([id number]) 1975 F Date Time Provider Department 07/28/24 1:15 PM [facility] During your visit today, we recorded the following information about you: Temperature Pulse Respiration Blood pressure 97.7 degrees 78/minute 18/minute 129/96 Weight Last Period 64 kg 07/08/24 Dillon Kim APRN.SALES REPRESENTATIVE PUBLIC UTILITIES 07/28/2024 2:53 PM Signed Subjective Patient came [...] history is provided by the patient. No air carrier maintenance inspector was used. Review of Systems Constitutional: Negative. [...] OF Injections L4-L5 by Dr Knox in [place] PAST SURGICAL HISTORY Procedure Laterality Date COLONOSCOPY [...] a day. galcanezumab-gnln 120 mg/mL subcutaneous syringe (Mzinga) Inject 2 mL subcutaneously once every month. [...] Stable examination. No acute findings are identified. [facility] Transcribe Date/Time: Jul 28 2024 1:52P Dictated by : BIRD BLUONT MD * * * * Physician Interpretation [...] IMPRESSION IMPRESSION: No acute findings are identified. Svp Marketing: [facility] Transcribe Date/Time: Jul 28 2024 1:52P [...] possible further testing and evaluation. Dillon Kim APRN.SALES REPRESENTATIVE PUBLIC UTILITIES Allergies As of Date: 07/28/2024 Noted Allergy [...] Diagnosis:Nausea [R11.0] Order(s):XR LUMBAR GENERAL 3V AP/LAT/L5-S1 [[id number]] Order #: [id number] FUTURE XR SACRUM/COCCYX 3V AP/LAT [6416883] Order #: [id number] FUTURE ECG COMPLETE [ECG01] Order #: [id number] UA DIP, URINE (POC) [2913465] Order #: [id number]. #:[id number] URINE CULTURE [SQURCUL] Order #: [id number]. #:[id number] cyclobenzaprine (FLEXERIL) 10 mg tabletTake 1 tablet [...] Observed: 07/28/2024 12:50 PM Status: [facility]TED [id number] Author: DILLON KIM APRN.SALES REPRESENTATIVE PUBLIC UTILITIES Service: ? Author Type: Nurse Practitioner Type: [...] history is provided by the patient. No air carrier maintenance inspector was used. Review of Systems Constitutional: Negative. [...] OF Injections L4-L5 by Dr Knox in [place] PAST SURGICAL HISTORY Procedure Laterality Date COLONOSCOPY [...] Stable examination. No acute findings are identified. Svp Marketing: [facility] Transcribe Date/Time: Jul 28 2024 1:52P [...] IMPRESSION IMPRESSION: No acute findings are identified. Svp Marketing: [facility] Transcribe Date/Time: Jul 28 2024 1:52P [...] Observed: 07/14/2024 12:00 AM Status: COMPLETED Source: [facility] Telephone (HEATHER) ANASTASIA SIMPSON ([id number]) 1975 F Date Time Provider Department 07/14/24 [...] 07/15/2024 9:25 AM Signed PA started via CoverMyTiggly, Patel- [id number]. Please await decision. YAMILETH Arellano Gillian, OCCA [...] Observed: 07/13/2024 12:00 AM Status: COMPLETED Source: [facility] Telephone ([employer]EM[employer]) ANASTASIA SIMPSON ([id number]) 1975 F Date Time Provider Department 07/13/24 [...] Observed: 07/12/2024 7:04 AM Status: COMPLETED Source: [facility] ID: [id number] Author: ROBYN HARRIS PA-C Service: ? Author Type: Physician Provider Contracting Consultant Type: Progress Notes Filed: 07/12/2024 08:05 Note Text: Neurology Outpatient Clinic Date: July 12, 2024 Patient Name: Anastasia Simpson Referring physician: Jacek Abbasi [facility] [address] Consult requested for headaches by Dr. Scruggs. Recommendations will be communicated via shared medical record or US mail. Primary physician: Jacek Abbasi [facility] [place] [address] Reason for Evaluation: Headaches Subjective HPI Anastasia [...] OF Injections L4-L5 by Dr Knox in [place] Family History: FAMILY HISTORY Problem Relation Age [...] 2/4 Coordination: finger-to- nose-finger intact bilaterally and btak-oq-ruxt intact bilaterally. Gait: Patient's gait is normal [...] which included preparing to see the patient, lxfo-ah-fvot patient care, completing clinical documentation, obtaining and/or reviewing separately obtained history, performing a medically appropriate examination, counseling and educating the patient/family/caregiver, and ordering medications, tests, or procedures. Robyn Harris PA-C [facility] Neurology This document has been created with the use of voice recognition technology. It may contain inaccuracies: (e.g. misspellings, inaccurate syntax or word sense) that have escaped review. CNOV Observed: 07/12/2024 7:00 AM Status: COMPLETED Source: [facility] Office Visit (NEMOWS) ANASTASIA SIMPSON ([id number]) 1975 F Date Time Provider Department 07/12/24 [...] Name: Anastasia Simpson Referring physician: Jacek Abbasi [place] [phone] Consult requested for headaches by Dr. Scruggs. Recommendations will be communicated via shared medical record or US mail. Primary physician: [place] [address] Reason for Evaluation: Headaches Subjective HPI Anastasia Simpson is a 48 year old right-handed female who presents for evaluation of headaches. Dr. Scrgugs is the referring physician. Dr. Jacek Scruggs [...] OF Injections L4-L5 by Dr Knox in [place] Family History: FAMILY HISTORY Problem Relation Age [...] 2/4 Coordination: finger-to- nose-finger intact bilaterally and homl-nz-gjwv intact bilaterally. Gait: Patient's gait is normal [...] which included preparing to see the patient, rvuu-zw-wuaa patient care, completing clinical documentation, obtaining and/or reviewing separately obtained history, performing a medically appropriate examination, counseling and educating the patient/family/caregiver, and ordering medications, tests, or procedures. Robyn Harris PA-C [facility] Neurology This document has been created with [...] Feverfew: Feverfew is a common garden herb lumbee to [place] and popular in [place] [...] pepperoni, Pickled rico Pods of broad bunn (Slovak beans, Togolese pea pods, Mauritian (juaquin) beans, guajardo and navy beans Ripe [...] much light. These can be obtained at [employer] or [employer]: see list above. 2. Limit use of acute treatments (ocac-hdg-obduazs medications, triptans, etc.) to no more than [...] and quiet environment. Relax and reduce stress. Pbwgtzy8Ytxjh is a free socorro that can instruct you on some simple relaxtion and breathing techniques. Http://Atmocean.ZapMe is a free website that provides teaching [...] and will be handling your phone calls, Azimat Messages and inquiries, if any. Unless explicitly told otherwise at the time of your office visit, your study results and ensuing treatment plans will be released via Pufetto and discussed during your follow-up appointment. MyChart: Please ask the schedulers to give you an activation code. The main way of communication is by Azimat rather than phone lines, so if you have not signed up, please do so. Azimat is also the way that you can review your labs and testing. We are not able to contact everyone to tell them results are normal. If you do not hear back from us regarding testing you have had, it should be considered normal or within normal range. If you have any questions about the results, you are free to message us. Azimat is meant for simple questions regarding medications, possible side effects, or other simple straight forward questions in limited sentences, rather than multiple paragraphs of discussion. Pufetto is not meant for, or efficient for [...] do not comment on most testing on [employer] in a message or commentary unless there [...] with this process. Referring Provider: JACEK SCRUGGS [[id number]] Allergies As of Date: 07/12/2024 Noted Allergy [...] [G43.E19] Order(s):CONSULT TO NEUROLOGY [9019] Order #: [id number]: 1 galcanezumab-gnln 120 mg/mL subcutaneous syringe (EMGALITY)Inject [...] Feverfew: Feverfew is a common garden herb lumbee to [place] and popular in [facility] as a treatment for disorders typically controlled [...] pepperoni, Pickled rico Pods of broad bunn (Slovak beans, Togolese pea pods, Mauritian (juaquin) beans, guajardo and navy beans Ripe [...] much light. These can be obtained at [employer] or [employer]: see list above. 2. Limit use of acute treatments (zcrd-npa-cvdygge medications, triptans, etc.) to no more than [...] and quiet environment. Relax and reduce stress. Vrjtvvc5Wjffo is a free socorro that can instruct you on some simple relaxtion and breathing techniques. Http://Iotum is a free website that provides teaching [...] and will be handling your phone calls, Azimat Messages and inquiries, if any. Unless explicitly told otherwise at the time of your office visit, your study results and ensuing treatment plans will be released via Pufetto and discussed during your follow-up appointment. MyChart: Please ask the schedulers to give you an activation code. The main way of communication is by Pufetto rather than phone lines, so if you have not signed up, please do so. Azimat is also the way that you can review your labs and testing. We are not able to contact everyone to tell them results are normal. If you do not hear back from us regarding testing you have had, it should be considered normal or within normal range. If you have any questions about the results, you are free to message us. Pufetto is meant for simple questions regarding medications, possible side effects, or other simple straight forward questions in limited sentences, rather than multiple paragraphs of discussion. Pufetto is not meant for, or efficient for [...] do not comment on most testing on [facility] in a message or commentary unless there [...] for Encounter Date Provider Department Center 07/12/2024 [id number] HARRIS [facility] Encounter Status:Closed by ROBYN HARRIS on 07/12/24 PROGRESS Observed: 07/12/2024 6:58 AM Status: COMPLETED [facility] [id number] Author: YOKO CHATTERJEE LPN Service: ? Author Type: LICENSED NURSE Type: Progress Notes Filed: 07/12/2024 07:18 Note Text: 07/10/2024 Sleep Apnea Probability Snores loudly: No Tired, fatigued or sleepy in daytime: Yes Stops breathing or choking/gasping during sleep: No High blood pressure: Yes Sleep Apnea Probability Score: 13 (Sleep study not recommended) SCARLETT Observed: 07/12/2024 12:00 AM Status: COMPLETED Source: [facility] Telephone ([employer]) ANASTASIA SIMPSON ([id number]) 1975 F Date Time Provider Department 07/12/24 JACEK SCRUGGS [facility] During your visit today, we recorded [...] Encounter Status:Closed by FLORENCE HOPPER on 07/12/24 BONOEN Observed: 07/06/2024 12:00 AM Status: COMPLETED Source: [facility] ANASTASIA SIMPSON ([id number]) 1975 F Date Time Provider Department 07/06/24 [facility] During your visit today, we recorded the following information about you: Angelique Marlow 07/06/2024 3:21 PM Signed Anastasia is calling regarding the Rx Hydrocodone. She is asking if there is any way of filling this sooner than Thursday as she recently fell, and needed a couple more, more than usual. Please call and advise either way. TY [phone] Cori Hanson MA 07/06/2024 4:02 PM Signed [facility] advised rx picked up 06/09 [...] Reason for Visit: Medication Problem [65] Cmt: intelligence support officer date of Hydrocodone Visit Diagnosis:DDD (degenerative disc [...] Encounter Status:Closed by AMEE PAZ on 07/07/24 XR TIBIA FIBULA 2V AP/LAT RT Observed: 1 4:05 PM Status: C Source: [facility] * * *Final Report* * * * [...] seen. The knee and ankle appear intact. Svp Marketing: [facility] Transcribe Date/Time: Jul 12 2024 9:11A Dictated by : ELLEN HIRSCH MD This examination was interpreted and the report reviewed and electronically signed by: ELLEN HIRSCH MD on Jul 12 2024 8:59AM EST This document has been addended by: ELLEN HIRSCH MD on Jul 12 2024 9:12AM EST [id number] PROGRESS Observed: 07/04/2024 4:00 PM Status: COMPLETED Source: [facility] HNO ID: [id number] Author: ANNIKA ASHBY RT(R) Service: Radiology Author [...] PATIENT PRESENTS WITH AN IMPLANTABLE OR ATTACHED ENGINEER CONDUCTOR: No RADIOLOGY DEPARTMENT: General X-ray: Exam(s) Completed: Lower Extremity X-Ray(s): Tibia Fibula, Right PERIPHERAL IV DATA: Not applicable SIGNED BY: RT Meliton(R) July 04, 2024 3:56 PM CNOV Observed: 07/04/2024 3:40 PM Status: COMPLETED Source: [facility] ANAST[facility] ([id number]) 1975 F Date Time Provider Department 07/04/24 3:40 PM JACEK SCRUGGS [facility] During your visit today, we recorded the following information about you: Pulse Blood pressure Weight Height 83/minute 116/78 64.2 kg 1.676 m Jacek Scruggs MD 07/04/2024 3:49 PM Signed Patient presents with: Follow Up HPI: Patient presents today for office visit for follow up. Mentions 3 weeks ago she fell outside in [facility]'s parking lot. Landed on buttocks and more [...] OF Injections L4-L5 by Dr Knox in [place] PAST SURGICAL HISTORY Procedure Laterality Date COLONOSCOPY [...] refill. Musculoskeletal: no joint swelling. No bruising. spinner tender at the proximal tibia. No deformity. [...] 0 XR TIBIA FIBULA 2V AP/LAT RIGHT [[id number]] Order #: [id number] FUTURE Prescriptions as of 07/04/2024 - SUMAtriptan [...] for Encounter Date Provider Department Center 07/04/2024 [id number] SCRUGGS FAMPWS [facility] Encounter Status:Closed by JACEK SCRUGGS on 07/04/24 PROGRESS Observed: 07/04/2024 3:23 PM Status: COMPLE[facility]ED [id number] Author: JACEK SCRUGGS MD Service: ? Author Type: Physician Type: Progress Notes Filed: 07/04/2024 15:49 Note Text: Patient presents with: Follow Up HPI: Patient presents today for office visit for follow up. Mentions 3 weeks ago she fell outside in [facility]'s parking lot. Landed on buttocks and more [...] OF Injections L4-L5 by Dr Knox in [place] PAST SURGICAL HISTORY Procedure Laterality Date COLONOSCOPY [...] refill. Musculoskeletal: no joint swelling. No bruising. spinner tender at the proximal tibia. No deformity. [...] / CODE REACTION SEVERITY SOURCE 09/02/2024 DRUG INGREDI/508046 003(SNOMED CT) GALCANEZUMAB-GNLM HIVES [facility] 02/09/2014 DRUG INGREDI/553145 003(SNOMED CT) GABAPENTIN OTHER: SEE C [facility] 12/19/2010 DRUG INGREDI/963093 003(SNOMED CT) BETAMETHASONE SODIUM PHOSPHATE OTHER: SEE C [facility] 07/01/2004 DRUG INGREDI/989180 003(SNOMED CT) CODEINE [facility] 07/01/2004 Drug Class/17754745 3(SNOMED CT) SULFA (SULFONAMIDE ANTIBIOTICS) [facility] ENCOUNTERS ADMIT/DISCHARGE ACCOUNT NUMBER ADMITTING ENCOUNTER CLASS LOC ATION SOURCE 06/17/2025/ 5 [id number] [facility] EDBed: [address] [place] [address] 05/10/2025/ 5 [id number] [facility] 03/20/2025/ 5 [id number] Ambulatory [facility] 03/03/2025/ 5 [id number] [facility] ORBed: [address] [place] [address] 03/03/2025 [id number] [facility] 01/25/2025/ 5 [id number] Ambulatory [facility] 01/23/2025/ 5 [id number] Ambulatory [facility] 01/16/2025/ 5 [id number] Ambulatory [facility] 12/15/2024/ 5 [id number] Ambulatory [facility] 11/14/2024/ 5 [id number] Ambulatory [facility] 10/21/2024/ 5 [id number] [facility]/ 5 [id number] Ambulatory [facility] 09/19/2024/ 4 [id number] Ambulatory [facility]:WOFM [facility] 09/02/2024/ 4 [id number] [facility] 08/30/[facility]/ 4 [id number] Ambulatory [facility]:WODM [facility] 08/03/2024/ 4 [id number] Ambulatory [facility]:WMOB [facility] 07/28/2024/ 4 [id number] Ambulatory [facility]:WORG [facility] 07/28/2024/ 4 [id number] Ambulatory [facility]:WOUC [facility] 07/12/2024/ 4 [id number] Ambulatory [facility]:WON2 [facility] 07/04/2024/ 4 [id number] Ambulatory [facility]:WORG [facility] 07/04/2024/ 4 [id number] Ambulatory [facility]:WOFM [facility] PAYERS ENCOUNTER GUARANTOR PAYER SUBSCRIBER SOURCE 06/17/2025 Primary Insuranc e:BLUE CARD PPO OOSPolicy Number: [id number] Date:2785-74-82Zqcz Name:Gay ALBRIGHT: [id number] [place] [address] [facility] 05/10/2025 Primary Insuranc e:BLUE CARD PPO OOSPolicy Number: [id number] Date:8935-62-96Letc Name:Gay ALBRIGHT: [id number] [place] [address] [facility] 03/20/2025 Primary Insuranc e:BLUE CARD PPO OOSPolicy Number: [id number] Date:0610-91-29Akgx Name:Gay SIMPSONDOB: [id number] [place] [address] [facility] 03/03/2025 Primary Insuranc e:BLUE CARD PPO OOSPolicy Number: [id number] Date:4118-05-21Gwit Name:Gay SIMPSONB: [id number] [place], [place] [address] [place] [address] 03/03/2025 Primary Insuranc e:BLUE CARD PPO OOSPolicy Number: [id number] Date:8197-33-16Frnh Name:Gay SIMPSONB: [id number] [place], [place] [address] [place] [address] 01/25/2025 Primary Insuranc e:ANTHEM BLUEHPNPolicy Number: [id number] Date:6635-66-93Aleu Name:Gay SIMPSONB: [id number] [place] [address] [facility] 01/23/2025 Primary Insuranc e:ANTHEM BLUEHPNPolicy Number: [id number] Date:8184-24-41Ojxb Name:Gay SIMPSONB: [id number] [place] [address] [facility] 01/16/2025 Primary Insuranc e:ANTHEM BLUEHPNPolicy Number: [id number] Date:4084-10-62Diyt Name:Gay SIMPSONB: [id number] [place] [address] [facility] 12/15/2024 Primary Insuranc e:BLUE CARD PPO OOSPolicy Number: [id number] Date:2107-90-63Vtcc Name:Gay SIMPSONDOB: [id number] [place] [address] [facility] 11/14/2024 Primary Insuranc e:BLUE CARD PPO OOSPolicy Number: [id number] Date:2242-89-52Ygsx Name:Gay SIMPSONDOB: [id number] [place] [address] [facility] 10/21/2024 Primary Insuranc e:BLUE CARD PPO OOSPolicy Number: [id number] Date:5237-04-64Ryia Name:Gay SIMPSONB: [id number] [place] [address] [facility] 10/05/2024 Primary Insuranc e:BLUE CARD PPO OOSPolicy Number: [id number] Date:5574-26-99Olsw Name:Gay SIMPSONB: [id number] [place] [address] [facility] 09/19/2024 Primary Insuranc e:BLUE CARD PPO OOSPolicy Number: [id number] Date:8164-87-08Ockq Name:Gay SIMPSONDOB: [id number] [place] [address] [facility] 09/02/2024 Primary Insuranc e:BLUE CARD PPO OOSPolicy Number: [id number] Date:9229-92-32Hsec Name:Gay SIMPSONDOB: [id number] [place] [address] [facility] 08/30/2024 Primary Insuranc e:BLUE CARD PPO OOSPolicy Number: [id number] Date:7359-66-30Eiaw Name:Gay SIMPSONB: [id number] [place] [address] [facility] 08/03/2024 Primary Insuranc e:BLUE CARD PPO OOSPolicy Number: [id number] Date:8172-26-90Qzke Name:Gay SIMPSONB: [id number] [place] [address] [facility] 07/28/2024 Primary Insuranc e:BLUE CARD PPO OOSPolicy Number: [id number] Date:0023-62-96Fful Name:Gay SIMPSONB: [id number] [place] [address] [facility] 07/28/2024 Primary Insuranc e:BLUE CARD PPO OOSPolicy Number: [id number] Date:3910-83-90Tlob Name:Gay SIMPSONB: [id number] [place] [address] [facility] 07/12/2024 Primary Insuranc e:BLUE CARD PPO OOSPolicy Number: [id number] Date:4483-41-24Pkdi Name:Gay Rashid VALEWAGNERB: [id number] [place] [address] [facility] 07/04/2024 Primary Insuranc e:BLUE CARD PPO OOSPolicy Number: [id number] Date:6764-15-75Czij Name:Gay Rashid VALEWAGNERB: [id number] [place] [address] [facility] 07/04/2024 Primary Insuranc e:BLUE CARD PPO OOSPolicy Number: [id number] Date:0439-88-06Ykdz Name:Gay Rashid VALEWAGNERB: [id number] [place] [address] [facility]
[2025-06-19 05:15] VITALS: BP 110/80; PULSE 75; RESP 18; TEMP 36.6; O2SAT 100; BMI 20.9
--- NOTE | 2025-06-19 05:59 | EX.ED.DYSGE1 ---
HPI History of Present Illness Chief Complaint: Headache Narrative Narrative: Patient is a 49-year-old female with past medical history of migraine headaches, hypertension who presented to the emergency department chief complaint of migraine headache. Patient states that she was here last evening and after getting medication she states that she started to feel better and went home. She states that she has longstanding history of migraine headaches and follows with neurology she states that she was on Imitrex for migraine headaches however states that it started to lose its effectiveness therefore she was changed to Relpax which she states that she tried that for 2 weeks she was extremely sick and therefore they discontinued this. Her neurologist then changed her to Depakote however states that this did not help either. States that she was seen at [facility] on Thursday for a migraine headache and nausea vomiting she states that she went there because they are in the [facility] system and that is who her neurologist is through. She states that after going home she woke up around 1 AM with a migraine headache again and states that she cannot take the pain anymore therefore she came here for further evaluation management. States that this is just progressively worsened throughout the evening and morning. Patient denies any trauma or injuries to her head. [facility] Medical History UTI (urinary tract infection) Strain of right knee Contusion of right knee Contusion of left knee Strain of right hip Lumbar radiculopathy Lumbar strain Migraines Hypertension Diarrhea Epigastric pain Age-related facial wrinkles Brow ptosis, bilateral Forehead wrinkles Glabellar wrinkles Skin cancer History of blood transfusion Back problem Acute cholecystitis Home Medications ?Medication ?Instructions ?Recorded ?Last Taken ?Type sumatriptan succinate 50 mg tablet 50 mg PO .PRN 04/19/19 Unknown History (Imitrex) propranolol 60 mg tablet 60 mg PO HS 02/23/20 Unknown History losartan 50 mg tablet 50 mg PO DAILY 10/27/22 Unknown History estradiol 0.0375 mg/24 hr 1 patch transdermal DAILY 06/19/25 Unknown History semiweekly transdermal patch Allergy/AdvReac Type Severity Reaction Status Date / Time codeine Allergy Other Verified 06/19/25 05:16 Sulfa (Sulfonamide Allergy Other Verified 06/19/25 05:16 Antibiotics) Family History Other Arthritis Breast cancer Diabetes Heart disease High cholesterol Hypertension Surgical History S/P Botox injection Previous back surgery History of laparoscopic cholecystectomy (~08/2018) Social History Smoking Status: Never smoker alcohol intake: never substance use type: does not use additional social history: DOES NOT USE ASPIRIN DOES USE IBUPROFEN NEEDED ROS ROS ED ROS Narrative Constitutional: Complains of headache as noted above denies lightheadedness dizziness Eyes: Denies double vision blurry vision Cardiovascular: Denies chest pain Respiratory: Denies shortness of breath Abdomen: Denies abdominal pain nausea vomit diarrhea : Denies urinary symptoms Neurological: Denies any numbness, weakness, tingling Musculoskeletal: Denies back pain Skin: Denies any rashes or lesions EXAM Physical Exam Narrative Exam Narrative: General: Patient is lying in bed rest comfortably did not appear to be in acute distress Head: Atraumatic, normocephalic Eyes: PERRL bilaterally, EOMI bilaterally, no conjunctival injection noted Neck: Soft, supple, trachea midline Cardiovascular: Regular rate and rhythm no murmurs gallops rubs are noted Respiratory: Clear to auscultation bilaterally Abdomen: Soft, nondistended, no tenderness to palpation Extremities: +5/5 strength noted in the bilateral upper and lower extremities Neurological: Patient follow commands knew that she was at [facility] the year is 2024. NIH of 0 GCS 15 Skin: Warm, dry, intact no rashes or lesions noted Const Vital Signs: 06/19/25 05:15 06/19/25 07:15 Temperature 98 F Temperature Source Oral Pulse Rate 75 73 Respiratory Rate 18 16 Blood Pressure 110/80 111/91 H Blood Pressure Mean 90 97 Pulse Ox 100 96 Oxygen Delivery Method Room Air MDM MDM MDM Narrative Medical decision making narrative: Patient is a 49-year-old female who presents to the emergency department the chief complaint of migraine headache. On the differential diagnose includes but not limited to migraine headache, aneurysm, hypothyroidism, dehydration. Once workup is obtained and reviewed she will be reevaluated. Patient be given IV fluids, magnesium, Tylenol and Haldol. She will be reevaluated. Patient states that she cannot take Reglan as this makes her feel very jittery and she cannot take Benadryl as this exacerbates her headaches. . Patient was given patient's CBC reviewed and showed no evidence leukocytosis white blood count normal at 5.2, he was 12.3, plate count of 193. Patient sodium was 139, potassium normal 3.4, creatinine 0.61. Patient's AST and ALT are 14 and 8 respectively. Patient's TSH normal at 2.43, free T4 and T3 were 1.40 and 2.6 respectively. Patient CTA head and neck reviewed and showed no acute findings. On reevaluation the patient she states that her headache has improved a little but not significantly. Will reach out to on-call neurology for the [place] [facility] group here at [facility] as she follows with them to see if they have any further recommendations in regards to managing her migraine headaches as she has been here twice now and less than 24 hours. We are still waiting to hear back from the neurology group therefore case will be signed out to oncoming provider see note for addendum details. Lab Data Labs: Laboratory Results - last 24 hr 06/19/25 06:10 WBC 5.2 RBC 4.12 L Hgb 12.3 Hct 36.0 L MCV 87.4 MCH 29.9 MCHC 34.2 RDW Std Deviation 41.3 RDW Coeff of Nicolás 13.0 Plt Count 193 MPV 10.4 Immature Gran % (Auto) 1.000 H Neut % (Auto) 52.1 Lymph % (Auto) 36.6 Blanco % (Auto) 8.9 Eos % (Auto) 0.6 Baso % (Auto) 0.8 Absolute Neuts (auto) 2.7 Absolute Lymphs (auto) 1.89 Nucleated RBC % 0 Sodium 139 Potassium 3.4 Chloride 106 Carbon Dioxide 22.4 Anion Gap 11 BUN 14 Creatinine 0.61 L Estim Creat Clear Calc 103.91 Est GFR (MDRD) Non-Af 110 BUN/Creatinine Ratio 22.8 H Glucose 85 Calcium 8.6 Total Bilirubin 0.39 AST 14 ALT 8 Alkaline Phosphatase 52 Total Protein 6.1 Albumin 3.7 Globulin 2.4 Albumin/Globulin Ratio 1.5 TSH 2.430 Free T4 1.40 Free T3 pg/dL 2.6 Radiography Diagnostic Testing: Clinical Impression(s) from Imaging Studies Head/Neck CTA 06/19/25 06:43 IMPRESSION: Negative CTA head and neck. [facility] T[facility] Chief Complaint: Headache ED Provider: Floyd Oshea Dx/Rx/DC Orders Clinical Impression: Hypertension, Intractable migraine Prescriptions: No Action sumatriptan succinate [Imitrex] 50 mg tablet 50 mg PO .PRN propranolol 60 mg tablet 60 mg PO HS losartan 50 mg tablet 50 mg PO DAILY Patient Comments: TAKE 1 TABLET BY MOUTH EVERY DAY estradiol 0.0375 mg/24 hr patch semiweekly 1 patch transdermal DAILY Primary Care Provider: Jacek Lubin Referrals: Jacek Lubin MD [Primary Care Provider, Medical] Activity Restrictions/Additional Instructions: Follow-up with your neurologist and your primary care physician outpatient setting. Ensure you are remaining hydrated. Take medications as prescribed. Return for worsening symptoms or other concerns Print Language: Spanish
[2025-06-19] MEDS: Magnesium Sulfate 2 GM in Dextrose 5%-Water (100mL Bag) 100 ML IV (06:04)
[2025-06-19 06:31] LABS: Hematocrit 36.0 % (37-47); Hemoglobin 12.3 g/dL (12.0-15.0); Immature Granulocytes Count 0.050 X10^3/uL (0.0-0.0); Mean Corp Hgb Conc 34.2 g/dL (32-36); Mean Corpuscular Volume 87.4 fL (81-99); Mean Platelet Vol. 10.4 fl (6.2-12.0); NRBC Flagged by Analyzer 0 % (0-5); Platelet Count 193 K/mm3 (150-450); RBC Distribution Width CV 13.0 % (11.6-14.6); RBC Distribution Width SD 41.3 fl (35.1-43.9); Red Blood Count 4.12 M/mm3 (4.2-5.4); White Blood Count 5.2 K/mm3 (4.4-11.0)
--- NOTE | 2025-06-19 06:43 | CT_ITS ---
PROCEDURE: CTA HEAD AND NECK W/ CONTRAST 06/19/2025 REASON FOR EXAM: HEADACHES TECHNIQUE: Procedure Code: CTCTA.HDNCK Modality: CT Procedure: CTA HEAD AND NECK W/ CONTRAST Multiplanar Sagittal and Coronal images were obtained. CONTRAST: 96 cc Isovue 370 One or more dose reduction techniques were used (e.g., Automated exposure control, adjustment of the mA and/or kV according to patient size, use of iterative reconstruction technique). RADIATION DOSE SUMMARY: DLP: 1356 mGycm COMPARISON: May 28, 2025 FINDINGS: Aortic Arch: Unremarkable Brachiocephalic and Subclavians: Unremarkable RIGHT Carotid: Right CCA: Patent Right ICA: Patent Maximum stenosis (NASCET): 0 % Right ECA: Patent LEFT Carotid: Left CCA: Patent Left ICA: Patent Maximum stenosis (NASCET): 0 % Left ECA: Patent Vertebrals: Patent RIGHT Vertebral: Patent LEFT Vertebral: Patent Anatomy: Unremarkable Aneurysm or avm: None Anterior cerebral arteries: Patent Middle cerebral arteries: Patent Basilar artery: Patent Posterior cerebral arteries: Patent Other major branches of the posterior circulation: Patent Major venous structures: Patent Other findings: Neck: Unremarkable lungs: Clear bones: There is no acute bony abnormality. CT/CTA Head AND Neck W/ Contrast IMPRESSION: Negative CTA head and neck. Reading Location: [facility]
[2025-06-19 06:59] LABS: AST(SGOT) 14 U/L (<=31); Alanine Aminotransfer ALT/SGPT 8 U/L (<=34); Albumin, Serum 3.7 g/dL (3.5-5.0); Alkaline Phosphatase 52 U/L (35-104); Anion Gap 11 (5-15); BUN 14 mg/dL (4-19); BUN/Creat Ratio 22.8 RATIO (10-20); Calcium,Total 8.6 mg/dL (7.6-11.0); Carbon Dioxide 22.4 mmol/L (21.0-32.0); Chloride 106 mmol/L (98-108); Estimated Creatinine Clearance 103.91 ml/min (50-250); Free T3 2.6 pg/mL (2.18-3.98); Globulin 2.4 g/dL (2.2-4.2); Glucose 85 mg/dL (70-99); Potassium 3.4 mmol/L (3.3-5.1)
[2025-06-19 07:15] VITALS: BP 111/91; PULSE 73; RESP 16; O2SAT 96
[2025-06-19 09:00] VITALS: BP 123/94; O2SAT 97
--- NOTE | 2025-06-19 09:18 | PCA ---
CALLED [facility] AND [facility] TO GET A HOLD OF KANDACE LOW. THEY WILL ALSO REACH OUT TO HER PCP
[2025-06-19 10:23] VITALS: BP 134/74; PULSE 78; RESP 16; TEMP 36.1; O2SAT 100
== END 2025-06-19 10:24 | disposition home or self-care (01) ==
LOC: ED 05:56
PROVIDERS: Emergency Provider Emergency Medicine; PCP Family Medicine; Visit Provider Emergency Medicine
DX: I10 Essential (primary) hypertension (principal); G43.919 Migraine, unspecified, intractable, without status migrainosus; Z79.899 Other long term (current) drug therapy
CPT/HCPCS: 70496; 70498; 80053; 84439; 84443; 84481; 85025; 96374; 96375; 99283; Q9967; A4216; J2405